=== PATIENT | female | born 1945 | race Caucasian/White ===

== ENCOUNTER → 2016-08-11 | Outpatient (CLI) | payer MEDICARE ==
[~2016-08-11] MED LIST: ACET-168 PO; ALBU0.632 IH; ALBU2.5V4 IH; ALBU8.5H2 IH; ALPR0.25 PO; ASP81CT PO; ASPI-892 PO; ATOR20TA66 PO; ATR20T PO; BUDE10.2 IH; CALC1CAP21 PO; CATHETER FLUSH 10 ML SYR IV PRN; CEPH-507 PO; CLOP75TA69 PO; DIGO125T PO; DIGO125T18 PO; DILT240C PO; DILT300C PO; DILT300C26 PO; EST45C VG; FURO-124 PO; FURO20TA PO; FURO20TA4 PO; HCT25T PO; HYDR-3812 PO; HYDR12.56 PO; IOHEXOL 350 MG/ML 150 ML (OMNIPAQUE 350) VIAL IV ONE; LEVO25TA5 PO; LEVO500T80 PO; LEVO750T39 PO; LISI10TA2 PO; LORA10CA PO; LORA10TA7 PO; LOSA100T16 PO; LOSA25TA5 PO; LVT.025T PO; MAGN400T6 PO; MELA1TAB8 PO; METO-272 PO; METO-274 PO; METO100T5 PO; METO50TA7 PO; MNTL10T PO; MONT10TA24 PO; MTP25TSR PO; NS 100 ML (IVPB) BAG IV ONE; OMEG1CAP51 PO; OXYM30SP NS; PANT40TA3 PO; PNT40TEC PO; POTA10CA43 PO; POTA10TA36 PO; RIVA20TA PO; RIVA20TA2 PO; RT-ALBUINH IH; SILD20TA PO; SMV20T PO; SULF1TAB35 PO; TIOT18CA2 IH; TIOT4MIS2 IH; calcium
--- OUTSIDE RECORDS SUMMARY | 2016-08-11 15:56 | XMS REPORT | Continuity of Care Document ---
Author Author [facility] Organization [facility] Address Unknown Phone Unavailable Care Team Providers Care Hospitality Aide Name Role Phone JONATHAN STANFORD MD PCP Insurance Providers Payer Name Policy Number Subscriber Name Relationship [employer] Gold Choice [id number] Anni Jacobson 19 Self / Same As Patient Advance Directives Directive Response Recorded Date/Time Advance Directives Yes 01/24/15 9:08am Health Care Power of Financial Services Internship No 01/24/15 9:08am Organ Donor No 01/24/15 9:08am Resuscitation Status Full Code 01/24/15 9:08am Problems Medical Problems Problem Onset Date Status Right ankle sprain Unknown Active Digoxin toxicity Unknown Active Dyspnea Unknown Active Hyponatremia Unknown Active Hyperkalemia Unknown Active Right ankle sprain Unknown Active Congestive heart failure Unknown Active Leukocytosis Unknown Active Right ankle sprain Unknown Active Medications Medication Dose Route Sig Days/Qty Instructions Order Date Discontinued Date Status Aspirin 81 Mg PO DAILY 06/29/12 11/13/14 Discontinued Losartan Potassium 1 Each PO DAILY 06/29/12 06/30/12 Discontinued Hydrochlorothiazide 1 Each PO DAILY 06/29/12 06/30/12 Discontinued Pantoprazole Sodium 40 Mg PO DAILY 06/29/12 Active Montelukast Sodium 10 Mg PO BEDTIME 06/29/12 Active Levothyroxine Sodium 25 Mcg PO DAILY 06/29/12 Active Simvastatin 20 Mg PO BEDTIME 06/29/12 09/12/12 Discontinued Albuterol Sulfate 0.63 Mg IH EVERY 4HRS PRN 06/29/12 08/23/14 Discontinued Losartan Potassium 25 Mg PO DAILY 06/30/12 09/12/12 Discontinued Metoprolol Succinate (Metoprolol ER 25mg) 25 Mg PO DAILY 06/30/12 Discontinued Diltiazem HCl (Cardizem Cd) 1 Each PO DAILY 06/30/12 08/23/14 Discontinued Rivaroxaban 20 Mg PO 1700 06/30/12 Active Atorvastatin Calcium 20 Mg PO BEDTIME 09/12/12 Active Metoprolol Succinate 1 Each PO TWICE A DAY 09/12/12 08/23/14 Discontinued Estrogens Conjugated 0.5 Gm VG WEEKLY ON Thursday09/12/12 Active [calcium] 600 Mg DAILY 09/12/12 08/23/14 Discontinued Hydrochlorothiazide 1 Each PO DAILY 09/12/12 08/23/14 Discontinued Oxymetazoline Hcl (Afrin Nasal [place]) 2 - 3 [place] NS PER PACKAGE INSTR 15 Qty 09/12/12 08/23/14 Discontinued Albuterol 2 Puff IH EVERY 4HRS PRN WHEEZING 08/23/14 Active Diltiazem HCl (Cartia Xt) 300 Mg PO DAILY 08/23/14 01/24/15 Discontinued Metoprolol Succinate (Toprol Xl) 100 Mg PO TWICE A DAY 08/23/14 Discontinued Calcium Carbonate/Vitamin D3 1 Tab PO DAILY 08/23/14 Active Furosemide 20 Mg PO EVERY OTHER DAY TAKE WITH POTASSIUM 08/23/1411/14 Discontinued Potassium Chloride 10 Meq PO EVERY OTHER DAY 08/23/14 Active [place]-3 Fatty Acids/Fish Oil 1,000 Mg PO DAILY 08/23/14 Active Loratadine 10 Mg PO 1700 08/23/14 11/13/14 Discontinued Acetaminophen 500-1000 Mg PO EVERY 4HRS PRN PAIN 08/23/14 Active Digoxin (Lanoxin) 125 Mcg PO DAILY 08/23/14 11/14/14 Discontinued Lisinopril 10 Mg PO DAILY 11/13/14 Active Alprazolam 0.25 Mg PO DAILY PRN ANXIETY 11/13/14 01/24/15 Discontinued Aspirin 81 Mg PO DAILY 11/13/14 Active Loratadine 10 Mg PO DAILY PRN ALLERGIES 11/13/14 Active Furosemide (Lasix) 1 Each PO DAILY 90 Qty 11/14/14 Active Metoprolol Succinate (Toprol Xl) 1 Each PO DAILY 90 Qty 11/14/14 Active Magnesium Oxide 1 Each PO TWICE A DAY WITH MEALS 60 Qty 11/14/14 Active Diltiazem HCl (Cartia Xt) 1 Each PO DAILY 01/24/15 Active Social History Social History Problem Response Recorded Date/Time Alcohol Use Regular Use 11/13/2014 12:54pm Recreational Drug Use No 11/13/2014 12:54pm Recent Foreign Travel No 01/24/2015 9:13am Smoking Status Never a Smoker 01/24/2015 9:12am Do you dip or chew tobacco? No 01/24/2015 9:12am Query Response Start Date Stop Date Smoking Status Never a Smoker 11/13/2004 Hospital Discharge Instructions No hospital discharge instructions. Plan of Care No plan of care. Functional Status No functional status results. Allergies, Adverse Reactions, Alerts Allergen Type Severity Reaction Status Last Updated valacyclovir HCl Allergy Unknown RASH Active 08/30/14 Immunizations Name Given Type Date of Pneumonia Vaccine 01/26/12 Historical Date of Influenza Vaccine 05/30/14 Historical Hepatitis A Yes Historical Hepatitis B Yes Historical Tetanus Booster (TDap) Less than 5yrs Historical Vital Signs Acute Vital Signs Vital Response Date/Time Temperature (Fahrenheit) 98.0 degrees F (97.6 - 99.5) Temperature (Calculated Celsius) 36.49774 degrees C (36.4 - 37.5) Temperature Source Tympanic Pulse Rate (adult) 85 bpm (60 - 90) Respiratory Rate 20 bpm (12 - 24) O2 Sat by Pulse Oximetry 95 % (88 - 100) Blood Pressure 106/57 mm Hg Pain Pain Intensity 0 Height (Feet) 5 feet Height (Inches) 5.00 inches Height (Calculated Centimeters) 165.344645 cm Weight (Pounds) 141 pounds Weight (Ounces) 3.0 oz Weight (Calculated Grams) 79915.525 gm Weight (Calculated Kilograms) 63.016117 kilograms Calculated BMI 23.46 Results Laboratory Results Test Name Result Units Flags Reference Collection Date/Time Result Date/ Time Comments Blood Urea Nitrogen 20 MG/DL H 7-18 12/28/2014 11:15am 12/28/2014 12: 05pm Creatinine 1.04 MG/DL 0.60-1.30 12/28/2014 11:15am 12/28/2014 12:05pm BUN/Creatinine Ratio 19 12/28/2014 11:15am 12/28/2014 12:05pm Estimat Glomerular Filtration Rate 53 12/28/2014 11:15am 2014 12:05pm GFR INTERPRETIVE DATA UNITS FOR ESTIMATED GFR (eGFR): mL/min/1.73 M2 REFERENCE RANGE FOR ESTIMATED GFR (eGFR) eGFR NORMAL eGFR >60 MODERATELY DECREASED eGFR 30-59 SEVERLY DECREASED eGFR 15-29 KIDNEY FAILURE <15 (OR DIALYSIS) Procedures Procedure Status Date Provider(s) Esophagogastroduodenoscopy (EGD) with dilation completed 01/24/15 JIM MEAD MD Encounters Encounter Location Date/Time Registered Surgical Day Care Via [facility] 01/24/15 8:34am Registered Clinic Via [facility] 01/18/15 6:09am Registered Clinic Via [facility] 01/08/15 9:34am Registered Clinic Via [facility] 12/28/14 10:22am
[2016-08-11 16:27] LABS: BLOOD UREA NITROGEN 16 MG/DL (7-18); BUN/CREATININE RATIO 18; CREATININE SERUM 0.87 MG/DL (0.60-1.30); GFR ESTIMATED > 60
--- NOTE | 2016-08-11 16:56 | Diagnostic Imaging Report ---
EXAMINATION: Bilateral lower extremity duplex venous ultrasound. TECHNIQUE: DVT protocol. Multiple sonographic images with color Doppler and waveform interrogation were performed of the lower extremity veins, bilaterally, with compression and augmentation maneuvers. INDICATION: Dyspnea. FINDINGS: The lower extremity veins from the common femoral veins to below the knee veins were examined with normal color-flow, compressibility and normal waveform demonstrated. The great saphenous vein bilaterally is patent. IMPRESSION: No evidence of DVT in either lower extremity. Dictated by: Dictated on workstation # [id number]
--- NOTE | 2016-08-11 17:09 | Diagnostic Imaging Report ---
PROCEDURE: CT angiography of the chest with contrast. TECHNIQUE: Multiple contiguous axial images were obtained through the chest after uneventful bolus administration of intravenous contrast. Reconstructed CTA MIP acquisitions were also performed. INDICATION: Dyspnea and COPD. Comparison is made to study of 06/28/2015. FINDINGS: There is good opacification of pulmonary arteries without intraluminal filling defect. There are small bilateral pleural effusions similar to previous study. Numerous enlarged mediastinal lymph nodes are also again demonstrated. This is increased compared to the previous study. IMPRESSION: No CTA evidence of pulmonary embolism. Mild to moderate pleural effusions are seen bilaterally with subjacent atelectasis and/or pneumonitis. Mediastinal adenopathy is not significantly changed. There does appear to be an increase in mural thickening within the midesophagus. This could be related to inflammation although clinical correlation and possible endoscopic followup are recommended. Pneumonitis in both lung bases with densely calcified nodule again noted in the left upper lobe, likely related to previous granulomatous exposure. Thoracic aorta demonstrates mild to moderate diffuse atherosclerosis without evidence of dissection. There is no evidence of hematoma in the mediastinum. There is localized mural thickening within the esophagus just below the level of the azygos. Dictated by: Dictated on workstation # [id number]
== END ==
LOC: RAD 15:52
PROVIDERS: ATTEND Nurse Practitioner Family
DX: R06.02 Shortness of breath (principal); J43.9 Emphysema, unspecified; R09.02 Hypoxemia; I27.2 Other secondary pulmonary hypertension
CPT/HCPCS: 36415; 71275; 82565; 84520; 93970

== ENCOUNTER → 2016-08-12 | Outpatient (CLI) | payer MEDICARE ==
[~2016-08-12] MED LIST changes: -CATHETER FLUSH 10 ML SYR IV PRN; -IOHEXOL 350 MG/ML 150 ML (OMNIPAQUE 350) VIAL IV ONE; -NS 100 ML (IVPB) BAG IV ONE
--- OUTSIDE RECORDS SUMMARY | 2016-08-12 11:32 | XMS REPORT | Continuity of Care Document ---
Author Author [facility] Organization [facility] Address Unknown Phone Unavailable Care Team Providers Care Chief Radiation Therapist Name Role Phone JONATHAN STANFORD MD PCP Insurance Providers Payer Name Policy Number Subscriber Name Relationship [employer] Choice [id number] Anni Jacobson 19 Self / Same As Patient Advance Directives Directive Response Recorded Date/Time Advance Directives Yes 01/24/15 9:08am Health Care Power of Jawbone Puller No 01/24/15 9:08am Organ Donor No 01/24/15 [...] 09/12/12 08/23/14 Discontinued Oxymetazoline Hcl (Afrin Nasal [place]) 2 - 3 [place] NS PER PACKAGE INSTR 15 Qty 09/12/12 [...] Meq PO EVERY OTHER DAY 08/23/14 Active [place]-3 Fatty Acids/Fish Oil 1,000 Mg PO DAILY [...] F (97.6 - 99.5) Temperature (Calculated Celsius) 36.36944 degrees C (36.4 - 37.5) Temperature Source Tympanic Pulse Rate (adult) 85 bpm (60 - 90) Respiratory Rate 20 bpm (12 - 24) O2 Sat by Pulse Oximetry 95 % (88 - 100) Blood Pressure 106/57 mm Hg Pain Pain Intensity 0 Height (Feet) 5 feet Height (Inches) 5.00 inches Height (Calculated Centimeters) 165.295094 cm Weight (Pounds) 141 pounds Weight (Ounces) 3.0 oz Weight (Calculated Grams) 57621.525 gm Weight (Calculated Kilograms) 63.564484 kilograms Calculated BMI 23.46 Results Laboratory Results [...] Location Date/Time Registered Surgical Day Care [facility] 01/24/15 8:34am Registered Clinic [facility] 01/18/15 6:09am Registered Clinic [facility] 01/08/15 9:34am Registered Clinic [facility] 12/28/14 10:22am
[2016-08-12 12:10] LABS: ANION GAP 14 MMOL/L (5-14); BLOOD UREA NITROGEN 14 MG/DL (7-18); BUN/CREATININE RATIO 16; CARBON DIOXIDE 26 MMOL/L (21-32); CHLORIDE 96 MMOL/L (98-107); CREATININE SERUM 0.87 MG/DL (0.60-1.30); SODIUM 136 MMOL/L (135-145)
[2016-08-12 12:11] LABS: ALANINE AMINOTRANSFERASE 15 U/L (0-55); ALBUMIN 4.3 G/DL (3.2-4.5); ASPARTATE AMINO TRANSFERASE 23 U/L (5-34); BILIRUBIN,TOTAL 0.7 MG/DL (0.1-1.0); CALCIUM 9.5 MG/DL (8.5-10.1); GFR ESTIMATED > 60; GLUCOSE 130 MG/DL (70-105); TOTAL PROTEIN 7.5 G/DL (6.4-8.2)
== END ==
LOC: LAB 11:28
PROVIDERS: ATTEND Nurse Practitioner Family
DX: J43.9 Emphysema, unspecified (principal)
CPT/HCPCS: 36415; 80053; 83880

== ENCOUNTER → 2016-09-05 | Outpatient (CLI) | payer MEDICARE ==
--- OUTSIDE RECORDS SUMMARY | 2016-09-05 09:35 | XMS REPORT | Continuity of Care Document ---
Author Author [facility] Organization [facility] Address Unknown Phone Unavailable Care Team Providers Care Sorority Mother Name Role Phone JONATHAN STANFORD MD PCP Insurance Providers Payer Name Policy Number Subscriber Name Relationship [employer] Gold Choice [id number] Anni Jacobson 19 Self / Same As Patient Advance Directives Directive Response Recorded Date/Time Advance Directives Yes 01/24/15 9:08am Health Care Power of Financial Services Intern No 01/24/15 9:08am Organ Donor No 01/24/15 [...] 09/12/12 08/23/14 Discontinued Oxymetazoline Hcl (Afrin Nasal [place]) 2 - 3 [place] NS PER PACKAGE INSTR 15 Qty 09/12/12 [...] Meq PO EVERY OTHER DAY 08/23/14 Active [place]-3 Fatty Acids/Fish Oil 1,000 Mg PO DAILY [...] F (97.6 - 99.5) Temperature (Calculated Celsius) 36.35753 degrees C (36.4 - 37.5) Temperature Source Tympanic Pulse Rate (adult) 85 bpm (60 - 90) Respiratory Rate 20 bpm (12 - 24) O2 Sat by Pulse Oximetry 95 % (88 - 100) Blood Pressure 106/57 mm Hg Pain Pain Intensity 0 Height (Feet) 5 feet Height (Inches) 5.00 inches Height (Calculated Centimeters) 165.312094 cm Weight (Pounds) 141 pounds Weight (Ounces) 3.0 oz Weight (Calculated Grams) 99829.525 gm Weight (Calculated Kilograms) 63.133349 kilograms Calculated BMI 23.46 Results Laboratory Results [...] Location Date/Time Registered Surgical Day Care [facility] 01/24/15 8:34am Registered Clinic [facility] 01/18/15 6:09am Registered Clinic [facility] 01/08/15 9:34am Registered Clinic [facility] 12/28/14 10:22am
[2016-09-05 09:47] LABS: MEAN PLATELET VOLUME 9.6 FL (7.4-10.4); RED BLOOD COUNT 3.58 10^6/uL (4.35-5.85); WHITE BLOOD COUNT 7.9 10^3/uL (4.3-11.0)
[2016-09-05 10:03] LABS: ALBUMIN 3.9 G/DL (3.2-4.5); BILIRUBIN,TOTAL 0.6 MG/DL (0.1-1.0); CALCIUM 8.9 MG/DL (8.5-10.1); CREATININE SERUM 0.99 MG/DL (0.60-1.30); POTASSIUM 3.9 MMOL/L (3.6-5.0); TOTAL PROTEIN 6.2 G/DL (6.4-8.2)
== END ==
LOC: LAB 09:30
PROVIDERS: ATTEND Nurse Practitioner Family
DX: J43.9 Emphysema, unspecified (principal); R06.02 Shortness of breath
CPT/HCPCS: 36415; 80053; 83880; 85027

== ENCOUNTER → 2016-10-07 | Outpatient (CLI) | payer MEDICARE ==
--- OUTSIDE RECORDS SUMMARY | 2016-10-07 09:42 | XMS REPORT | Continuity of Care Document ---
Author Author [facility] Organization [facility] Address Unknown Phone Unavailable Care Team Providers Care Claim Analyst Name Role Phone JONATHAN STANFORD MD PCP Insurance Providers Payer Name Policy Number Subscriber Name Relationship [employer] Gold Choice [id number] Anni Jacobson 19 Self / Same As Patient Advance Directives Directive Response Recorded Date/Time Advance Directives Yes 01/24/15 9:08am Health Care Power of Machine Cell Tuber No 01/24/15 9:08am Organ Donor No 01/24/15 [...] 09/12/12 08/23/14 Discontinued Oxymetazoline Hcl (Afrin Nasal [place]) 2 - 3 [place] NS PER PACKAGE INSTR 15 Qty [...] Meq PO EVERY OTHER DAY 08/23/14 Active [place]-3 Fatty Acids/Fish Oil 1,000 Mg PO DAILY [...] F (97.6 - 99.5) Temperature (Calculated Celsius) 36.75585 degrees C (36.4 - 37.5) Temperature Source Tympanic Pulse Rate (adult) 85 bpm (60 - 90) Respiratory Rate 20 bpm (12 - 24) O2 Sat by Pulse Oximetry 95 % (88 - 100) Blood Pressure 106/57 mm Hg Pain Pain Intensity 0 Height (Feet) 5 feet Height (Inches) 5.00 inches Height (Calculated Centimeters) 165.751764 cm Weight (Pounds) 141 pounds Weight (Ounces) 3.0 oz Weight (Calculated Grams) 12951.525 gm Weight (Calculated Kilograms) 63.079384 kilograms Calculated BMI 23.46 Results Laboratory Results [...] Location Date/Time Registered Surgical Day Care [facility] 01/24/15 8:34am Registered Clinic [facility] 01/18/15 6:09am Registered Clinic [facility] 01/08/15 9:34am Registered Clinic [facility] 12/28/14 10:22am
[2016-10-07 10:15] LABS: ALBUMIN 4.1 G/DL (3.2-4.5); BILIRUBIN,TOTAL 0.6 MG/DL (0.1-1.0); CALCIUM 9.4 MG/DL (8.5-10.1); CREATININE SERUM 1.19 MG/DL (0.60-1.30); POTASSIUM 3.7 MMOL/L (3.6-5.0); TOTAL PROTEIN 6.8 G/DL (6.4-8.2)
== END ==
LOC: LAB 09:38
PROVIDERS: ATTEND Internal Medicine Critical Care Medicine
DX: J43.9 Emphysema, unspecified (principal); R06.02 Shortness of breath
CPT/HCPCS: 36415; 80053; 83880

== ENCOUNTER → 2016-10-28 | Outpatient (CLI) | payer MEDICARE ==
[2016-10-28 13:55] LABS: MEAN PLATELET VOLUME 10.7 FL (7.4-10.4); RED CELL DISTRIBUTION WIDTH 22.1 % (10.0-14.5); WHITE BLOOD COUNT 9.1 10^3/uL (4.3-11.0)
[2016-10-28 14:39] LABS: ALBUMIN 4.1 G/DL (3.2-4.5); BILIRUBIN,TOTAL 0.4 MG/DL (0.1-1.0); CALCIUM 9.1 MG/DL (8.5-10.1); CREATININE SERUM 0.99 MG/DL (0.60-1.30); POTASSIUM 3.6 MMOL/L (3.6-5.0); TOTAL PROTEIN 6.9 G/DL (6.4-8.2)
== END ==
LOC: LAB 13:36
PROVIDERS: ATTEND Nurse Practitioner Family
DX: J43.9 Emphysema, unspecified (principal)
CPT/HCPCS: 36415; 80053; 83880; 85027

== ENCOUNTER → 2016-12-16 | Outpatient (CLI) | payer MEDICARE ==
[2016-12-16 11:37] LABS: ALBUMIN 4.1 G/DL (3.2-4.5); BILIRUBIN,TOTAL 0.7 MG/DL (0.1-1.0); CALCIUM 9.3 MG/DL (8.5-10.1); CREATININE SERUM 1.02 MG/DL (0.60-1.30); POTASSIUM 3.6 MMOL/L (3.6-5.0); TOTAL PROTEIN 6.8 G/DL (6.4-8.2)
== END ==
LOC: LAB 10:58
PROVIDERS: ATTEND Physician Assistant
DX: I10 Essential (primary) hypertension (principal); E78.2 Mixed hyperlipidemia
CPT/HCPCS: 36415; 80053; 80061

== ENCOUNTER 2016-12-23 09:44 | Outpatient (CLI) | payer MEDICARE ==
[~2016-12-23] VITALS: Ht 165.1 cm; Wt 61.2 kg
[2016-12-23] MEDS ORDERED: METO50TA2 PO (09:53)
[2016-12-23] MEDS ORDERED: MULT-72 PO (09:53)
[2016-12-23] MEDS ORDERED: POTA-51 PO (09:53)
== END 2016-12-23 09:57 ==
LOC: PREOP 09:44
PROVIDERS: ATTEND Otolaryngology Otolaryngology/Facial Plastic Surgery
DX: Z01.818 Encounter for other preprocedural examination (principal); R04.0 Epistaxis

== ENCOUNTER 2016-12-26 07:17 | Day surgery (SDC) | payer MEDICARE ==
[~2016-12-26] VITALS: Ht 165.1 cm; Wt 61.2 kg
[~2016-12-26 07:17] MED LIST changes: +METO50TA2 PO; +MULT-72 PO; +POTA-51 PO
[2016-12-26 07:35] VITALS: BP 114/69
[2016-12-26 07:52] LABS: BASOPHILS % (AUTO) 0 % (0-10); EOSINOPHILS # (AUTO) 0.2 10^3/uL (0.0-0.3); EOSINOPHILS % (AUTO) 2 % (0-10); LYMPHOCYTES % (AUTO) 10 % (12-44); MEAN CORPUSCULAR HEMOGLOBIN 30 PG (25-34); MEAN CORPUSCULAR HGB CONC 33 G/DL (32-36); MEAN CORPUSCULAR VOLUME 92 FL (80-99); MONOCYTES # (AUTO) 1.1 X 10^3 (0.0-1.0); MONOCYTES % (AUTO) 11 % (0-12); NEUTROPHILS # (AUTO) 7.8 X 10^3 (1.8-7.8); NEUTROPHILS % (AUTO) 77 % (42-75); PLATELET COUNT 241 10^3/uL (130-400); RED BLOOD COUNT 4.42 10^6/uL (4.35-5.85); RED CELL DISTRIBUTION WIDTH 20.1 % (10.0-14.5); WHITE BLOOD COUNT 10.2 10^3/uL (4.3-11.0)
[2016-12-26] MEDS ORDERED: LACTATED RINGERS 1,000 ML IV PRN (08:02)
--- NOTE | 2016-12-26 08:52 | Progress Note-Pre Operative ---
Pre-Operative Progress Note H&P Reviewed The H&P was reviewed, patient examined and no changes noted. Date H&P Reviewed: December 26, 2016 Time H&P Reviewed: 08:30 Pre-Operative Diagnosis: Recurrent Right Epistaxis TUNG SAVAGE MD December 26, 2016 8:52 am
[2016-12-26] MEDS ORDERED: ONDANSETRON 4 MG/2 ML (SDV) Z0FRAN ONE ×2 (08:53→09:41)
[2016-12-26] MEDS ORDERED: LIDOCAINE PF 2% 5 ML (XYLOCAINE) VIAL ONE (08:53)
[2016-12-26] MEDS ORDERED: proPOfol 200 MG/20 ML (DIPRIVAN) VIAL IV ONE (08:53)
[2016-12-26] MEDS ORDERED: SEVOFLURANE (ULTANE) 15 ML INHAL SOLN ONE (08:53)
[2016-12-26] MEDS ORDERED: LACTATED RINGERS 1,000 ML IV ONE (08:53)
[2016-12-26] MEDS ORDERED: fentaNYL INJECTION 100 MCG/2 ML AMP ONE ×2 (08:54→09:41)
[2016-12-26] MEDS ORDERED: MIDAZOLAM 2 MG/2 ML (VERSED) VIAL ONE (08:54)
[2016-12-26] MEDS ORDERED: MUPIROCIN 2% OINT 22 GM (BACTROBAN) TUBE ONE (09:03)
[2016-12-26] MEDS ORDERED: PHENYLEPHRINE 0.5% NASAL SPR (NEO-SYNEPHRINE) REG ONE (09:03)
[2016-12-26] MEDS ORDERED: COCAINE HCL 4% 2 ML SYR ONE (09:03)
[2016-12-26] MEDS ORDERED: LIDOCAINE/EPI 1%-1:100,000 (XYLOCAINE) 20ML ONE (09:03)
[2016-12-26] MEDS ORDERED: morphine INJ 10 MG/ML 1ML (SYR OR VIAL) ONE (09:41)
[2016-12-26] MEDS ORDERED: morphine INJ 10 MG/ML 1ML (SYR OR VIAL) IVP PRN (10:00)
[2016-12-26] MEDS ORDERED: MEPERIDINE (DEMEROL) INJ 50 MG/ML IVP PRN (10:00)
[2016-12-26] MEDS ORDERED: ONDANSETRON 4 MG/2 ML (SDV) Z0FRAN IVP PRN (10:00)
[2016-12-26] MEDS ORDERED: D5 1/2 NS W/KCL 20 MEQ/L 1,000 ML IV SCH (10:04)
--- NOTE | 2016-12-26 10:04 | Progress Note-Post Operative ---
Post-Operative Progess Note Surgeon (s)/Proofing Machine Operator (s) Surgeon TUNG SAVAGE MD Proofing Machine Operator n/a Pre-Operative Diagnosis Recurrent Right Epistaxis Post-Operative Diagnosis same Post-Op Procedure Note Date of Procedure: December 26, 2016 Name of Procedure Performed: Endoscopic Repair of Right Epistaxis Description & Findings Description and Findings: n/a Anesthesia Type lma Estimated Blood Loss minimal Packing none. Specimen(s) collected/removed none TUNG SAVAGE MD December 26, 2016 10:04 am
[2016-12-26] MEDS ORDERED: HYDROcodone/APAP 5 MG/325 MG (LORTAB) TAB PO PRN (10:15)
[2016-12-26] MEDS ORDERED: PHENYLEPHRINE 0.5% NASAL SPR (NEO-SYNEPHRINE) REG PRN (10:15)
[2016-12-26] MEDS ORDERED: ACETAMINOPHEN 325 MG TABLET/CAPLET (TYLENOL) PO PRN (10:30)
[2016-12-26] MEDS ORDERED: HYDR-3062 PO (10:45)
[2016-12-26 11:00] VITALS: BP 97/44
[2016-12-26 11:30] VITALS: BP 103/66
== END 2016-12-26 11:40 | disposition home or self-care (01) ==
LOC: SDC 07:17
PROVIDERS: ATTEND Otolaryngology Otolaryngology/Facial Plastic Surgery
DX: R04.0 Epistaxis (principal); I11.0 Hypertensive heart disease with heart failure; I50.9 Heart failure, unspecified; I48.91 Unspecified atrial fibrillation; D64.9 Anemia, unspecified; J44.9 Chronic obstructive pulmonary disease, unspecified; I27.2 Other secondary pulmonary hypertension; I73.00 Raynaud's syndrome without gangrene; Z79.01 Long term (current) use of anticoagulants
CPT/HCPCS: 36415; 85025; 87081

== ENCOUNTER → 2017-02-05 | Outpatient (CLI) | payer MEDICARE ==
[~2017-02-05] MED LIST changes: -ALBU2.5V4 IH; +ALBU2.5V4 NEB; +ASPI-999 PO; +HYDR-3062 PO
[2017-02-05 14:31] LABS: ALBUMIN 3.9 GM/DL (3.2-4.5); BILIRUBIN,TOTAL 0.5 MG/DL (0.1-1.0); CALCIUM 9.1 MG/DL (8.5-10.1); CREATININE SERUM 1.18 MG/DL (0.60-1.30); POTASSIUM 3.9 MMOL/L (3.6-5.0); TOTAL PROTEIN 6.6 GM/DL (6.4-8.2)
== END ==
LOC: LAB 13:53
PROVIDERS: ATTEND Nurse Practitioner Family
DX: I10 Essential (primary) hypertension (principal)
CPT/HCPCS: 36415; 80053

== ENCOUNTER 2017-04-22 11:10 | Outpatient (RCR) | payer MEDICARE ==
[2017-03-17 13:18] LABS: BASOPHILS % (AUTO) 0 % (0-10); EOSINOPHILS # (AUTO) 0.3 10^3/uL (0.0-0.3); EOSINOPHILS % (AUTO) 3 % (0-10); LYMPHOCYTES % (AUTO) 10 % (12-44); MEAN CORPUSCULAR HEMOGLOBIN 32 PG (25-34); MEAN CORPUSCULAR HGB CONC 32 G/DL (32-36); MEAN CORPUSCULAR VOLUME 98 FL (80-99); MEAN PLATELET VOLUME 10.7 FL (7.4-10.4); MONOCYTES # (AUTO) 1.2 X 10^3 (0.0-1.0); MONOCYTES % (AUTO) 12 % (0-12); NEUTROPHILS # (AUTO) 7.8 X 10^3 (1.8-7.8); NEUTROPHILS % (AUTO) 76 % (42-75); PLATELET COUNT 287 10^3/uL (130-400); RED BLOOD COUNT 3.79 10^6/uL (4.35-5.85); RED CELL DISTRIBUTION WIDTH 15.7 % (10.0-14.5); WHITE BLOOD COUNT 10.3 10^3/uL (4.3-11.0)
[2017-03-17 13:43] LABS: ALBUMIN 3.9 GM/DL (3.2-4.5); BILIRUBIN,TOTAL 0.7 MG/DL (0.1-1.0); CALCIUM 9.2 MG/DL (8.5-10.1); CREATININE SERUM 1.08 MG/DL (0.60-1.30); POTASSIUM 3.9 MMOL/L (3.6-5.0); TOTAL PROTEIN 6.9 GM/DL (6.4-8.2)
[2017-03-17 13:52] LABS: RETICULOCYTE % 1.74 % (0.50-2.40)
[2017-03-17 14:12] LABS: PEP REPORT SEE PATH REPORT
[2017-03-18 06:33] LABS: LIGHT CHAIN KAPPA SERUM QUANT 40.84 mg/L (3.30-19.40); LIGHT CHAIN LAMBDA SERUM QUANT 25.89 mg/L (5.71-26.30)
[2017-03-18 07:45] LABS: FOLIC ACID >24.0 ng/mL (1.5-24.0)
[2017-03-19 15:53] LABS: CLIN PATHOLOGY REPORT FOOTNOTE; SERUM PROTEIN ELEC DETAIL L-17-0010749
[~2017-04-22 11:10] MED LIST changes: +MULT-500 PO; -MULT-72 PO
[2017-04-22 11:51] LABS: BASOPHILS % (AUTO) 0 % (0-10); EOSINOPHILS # (AUTO) 0.3 10^3/uL (0.0-0.3); EOSINOPHILS % (AUTO) 3 % (0-10); LYMPHOCYTES # (AUTO) 0.8 X 10^3 (1.0-4.0); LYMPHOCYTES % (AUTO) 8 % (12-44); MEAN CORPUSCULAR HEMOGLOBIN 32 PG (25-34); MEAN CORPUSCULAR HGB CONC 33 G/DL (32-36); MEAN CORPUSCULAR VOLUME 95 FL (80-99); MEAN PLATELET VOLUME 10.5 FL (7.4-10.4); MONOCYTES # (AUTO) 1.4 X 10^3 (0.0-1.0); MONOCYTES % (AUTO) 13 % (0-12); NEUTROPHILS # (AUTO) 7.7 X 10^3 (1.8-7.8); NEUTROPHILS % (AUTO) 76 % (42-75); PLATELET COUNT 265 10^3/uL (130-400); RED BLOOD COUNT 3.65 10^6/uL (4.35-5.85); RED CELL DISTRIBUTION WIDTH 14.7 % (10.0-14.5); WHITE BLOOD COUNT 10.2 10^3/uL (4.3-11.0)
[2017-04-22 12:23] LABS: BILIRUBIN,TOTAL 0.8 MG/DL (0.1-1.0); CALCIUM 9.2 MG/DL (8.5-10.1); CREATININE SERUM 1.07 MG/DL (0.60-1.30); TOTAL PROTEIN 7.2 GM/DL (6.4-8.2)
== END 2017-05-02 | disposition home or self-care (01) ==
LOC: ONC 11:10
PROVIDERS: ATTEND Internal Medicine Hematology & Oncology
DX: D64.9 Anemia, unspecified (principal); I48.2 Chronic atrial fibrillation; J44.9 Chronic obstructive pulmonary disease, unspecified; I11.0 Hypertensive heart disease with heart failure; I50.30 Unspecified diastolic (congestive) heart failure; I25.10 Atherosclerotic heart disease of native coronary artery without angina pectoris; E78.5 Hyperlipidemia, unspecified; E03.9 Hypothyroidism, unspecified; I73.00 Raynaud's syndrome without gangrene; K21.9 Gastro-esophageal reflux disease without esophagitis; E78.00 Pure hypercholesterolemia, unspecified; I73.9 Peripheral vascular disease, unspecified; Z79.01 Long term (current) use of anticoagulants; Z79.02 Long term (current) use of antithrombotics/antiplatelets; Z95.828 Presence of other vascular implants and grafts; Z87.891 Personal history of nicotine dependence; Z99.81 Dependence on supplemental oxygen
CPT/HCPCS: 36415; 80053; 82607; 82728; 82746; 83540; 83883; 84155; 84165; 85025; 85045; 99213; 99214

== ENCOUNTER → 2017-05-05 | Outpatient (CLI) | payer MEDICARE ==
[2017-05-05 14:18] LABS: ALBUMIN 3.9 GM/DL (3.2-4.5); BILIRUBIN,TOTAL 0.5 MG/DL (0.1-1.0); CREATININE SERUM 0.92 MG/DL (0.60-1.30); POTASSIUM 3.5 MMOL/L (3.6-5.0); TOTAL PROTEIN 7.1 GM/DL (6.4-8.2)
== END ==
LOC: LAB 13:42
PROVIDERS: ATTEND Nurse Practitioner Family
DX: J43.9 Emphysema, unspecified (principal); I50.32 Chronic diastolic (congestive) heart failure; I27.20 Pulmonary hypertension, unspecified; R09.02 Hypoxemia
CPT/HCPCS: 36415; 80053

== ENCOUNTER → 2017-05-13 | Outpatient (CLI) | payer MEDICARE ==
[2017-05-13 11:19] LABS: CHOLESTEROL 132 MG/DL (< 200); DIRECT LDL 63 MG/DL (1-129); TRIGLYCERIDES 52 MG/DL (<150); VLDL CHOLESTEROL 10 MG/DL (5-40)
== END ==
LOC: LAB 10:39
PROVIDERS: ATTEND Family Medicine
DX: I10 Essential (primary) hypertension (principal); I48.0 Paroxysmal atrial fibrillation; E78.2 Mixed hyperlipidemia; I65.23 Occlusion and stenosis of bilateral carotid arteries; I50.32 Chronic diastolic (congestive) heart failure
CPT/HCPCS: 36415; 80061

== ENCOUNTER → 2017-05-26 | Outpatient (CLI) | payer MEDICARE | LOC: CARD 12:19 | PROVIDERS: ATTEND Internal Medicine Cardiovascular Disease | DX: I48.0 Paroxysmal atrial fibrillation (principal); I11.0 Hypertensive heart disease with heart failure; E78.2 Mixed hyperlipidemia; I65.23 Occlusion and stenosis of bilateral carotid arteries; I50.32 Chronic diastolic (congestive) heart failure | CPT/HCPCS: 93306 ==

== ENCOUNTER 2017-06-23 13:10 | Outpatient (RCR) | payer MEDICARE ==
[~2017-06-23 13:10] MED LIST changes: +ACHD5005 PO; -HYDR-3812 PO; -METO-272 PO; -METO-274 PO; +METO-370 PO; +METO-395 PO; +METO50TA15 PO; -METO50TA2 PO
[2017-06-23 13:44] LABS: BASOPHILS % (AUTO) 0 % (0-10); EOSINOPHILS # (AUTO) 0.2 10^3/uL (0.0-0.3); EOSINOPHILS % (AUTO) 2 % (0-10); HEMATOCRIT 35 % (35-52); HEMOGLOBIN 11.8 G/DL (11.5-16.0); LYMPHOCYTES # (AUTO) 0.9 X 10^3 (1.0-4.0); LYMPHOCYTES % (AUTO) 10 % (12-44); MEAN CORPUSCULAR HEMOGLOBIN 33 PG (25-34); MEAN CORPUSCULAR HGB CONC 34 G/DL (32-36); MEAN CORPUSCULAR VOLUME 97 FL (80-99); MEAN PLATELET VOLUME 11.2 FL (7.4-10.4); MONOCYTES % (AUTO) 10 % (0-12); NEUTROPHILS # (AUTO) 7.5 X 10^3 (1.8-7.8); NEUTROPHILS % (AUTO) 78 % (42-75); PLATELET COUNT 250 10^3/uL (130-400); WHITE BLOOD COUNT 9.6 10^3/uL (4.3-11.0)
[2017-06-23 14:00] LABS: ALBUMIN 3.9 GM/DL (3.2-4.5); BILIRUBIN,TOTAL 0.5 MG/DL (0.1-1.0); CALCIUM 9.2 MG/DL (8.5-10.1); CREATININE SERUM 0.96 MG/DL (0.60-1.30); POTASSIUM 3.8 MMOL/L (3.6-5.0); TOTAL PROTEIN 7.1 GM/DL (6.4-8.2)
== END 2017-09-21 | disposition home or self-care (01) ==
LOC: ONC 13:10
PROVIDERS: ATTEND Internal Medicine Hematology & Oncology
DX: D64.9 Anemia, unspecified (principal); I48.2 Chronic atrial fibrillation; J44.9 Chronic obstructive pulmonary disease, unspecified; I11.0 Hypertensive heart disease with heart failure; I50.30 Unspecified diastolic (congestive) heart failure; I25.10 Atherosclerotic heart disease of native coronary artery without angina pectoris; E78.5 Hyperlipidemia, unspecified; E03.9 Hypothyroidism, unspecified; I73.00 Raynaud's syndrome without gangrene; K21.9 Gastro-esophageal reflux disease without esophagitis; E78.00 Pure hypercholesterolemia, unspecified; I73.9 Peripheral vascular disease, unspecified; Z79.01 Long term (current) use of anticoagulants; Z79.02 Long term (current) use of antithrombotics/antiplatelets; Z95.828 Presence of other vascular implants and grafts; Z87.891 Personal history of nicotine dependence; Z99.81 Dependence on supplemental oxygen
CPT/HCPCS: 36415; 80053; 82728; 85025; 99213

== ENCOUNTER → 2017-08-06 | Outpatient (CLI) | payer MEDICARE ==
[2017-08-06 14:19] LABS: POTASSIUM 3.6 MMOL/L (3.6-5.0)
[2017-08-06 14:20] LABS: ALBUMIN 3.7 GM/DL (3.2-4.5); BILIRUBIN,TOTAL 0.8 MG/DL (0.1-1.0); CALCIUM 9.3 MG/DL (8.5-10.1); TOTAL PROTEIN 7.3 GM/DL (6.4-8.2)
== END ==
LOC: LAB 13:32
PROVIDERS: ATTEND Nurse Practitioner Family
DX: J43.9 Emphysema, unspecified (principal)
CPT/HCPCS: 36415; 80053

== ENCOUNTER → 2017-11-26 | Outpatient (CLI) | payer MEDICARE ==
[2017-11-26 13:56] LABS: ALBUMIN 4.1 GM/DL (3.2-4.5); BILIRUBIN,TOTAL 0.5 MG/DL (0.1-1.0); CALCIUM 9.7 MG/DL (8.5-10.1); CREATININE SERUM 0.98 MG/DL (0.60-1.30); POTASSIUM 3.9 MMOL/L (3.6-5.0); TOTAL PROTEIN 7.5 GM/DL (6.4-8.2)
== END ==
LOC: LAB 13:19
PROVIDERS: ATTEND Nurse Practitioner Family
DX: J43.9 Emphysema, unspecified (principal)
CPT/HCPCS: 36415; 80053

== ENCOUNTER 2017-12-15 13:48 | Outpatient (RCR) | payer MEDICARE ==
[2017-09-22 13:13] LABS: BASOPHILS % (AUTO) 0 % (0-10); EOSINOPHILS # (AUTO) 0.2 10^3/uL (0.0-0.3); EOSINOPHILS % (AUTO) 2 % (0-10); HEMATOCRIT 36 % (35-52); LYMPHOCYTES # (AUTO) 0.9 X 10^3 (1.0-4.0); LYMPHOCYTES % (AUTO) 8 % (12-44); MEAN CORPUSCULAR HEMOGLOBIN 33 PG (25-34); MEAN CORPUSCULAR HGB CONC 33 G/DL (32-36); MEAN CORPUSCULAR VOLUME 98 FL (80-99); MEAN PLATELET VOLUME 10.7 FL (7.4-10.4); MONOCYTES % (AUTO) 9 % (0-12); NEUTROPHILS # (AUTO) 8.8 X 10^3 (1.8-7.8); NEUTROPHILS % (AUTO) 81 % (42-75); PLATELET COUNT 285 10^3/uL (130-400); RED BLOOD COUNT 3.66 10^6/uL (4.35-5.85); RED CELL DISTRIBUTION WIDTH 15.6 % (10.0-14.5); WHITE BLOOD COUNT 10.8 10^3/uL (4.3-11.0)
[2017-09-22 13:34] LABS: BILIRUBIN,TOTAL 0.5 MG/DL (0.1-1.0); CALCIUM 9.4 MG/DL (8.5-10.1); CREATININE SERUM 1.12 MG/DL (0.60-1.30); POTASSIUM 4.1 MMOL/L (3.6-5.0); TOTAL PROTEIN 6.8 GM/DL (6.4-8.2)
[2017-12-15 13:59] LABS: BASOPHILS % (AUTO) 0 % (0-10); EOSINOPHILS # (AUTO) 0.2 10^3/uL (0.0-0.3); EOSINOPHILS % (AUTO) 2 % (0-10); HEMATOCRIT 39 % (35-52); LYMPHOCYTES # (AUTO) 0.9 X 10^3 (1.0-4.0); LYMPHOCYTES % (AUTO) 8 % (12-44); MEAN CORPUSCULAR HEMOGLOBIN 33 PG (25-34); MEAN CORPUSCULAR HGB CONC 34 G/DL (32-36); MEAN CORPUSCULAR VOLUME 97 FL (80-99); MEAN PLATELET VOLUME 10.8 FL (7.4-10.4); MONOCYTES # (AUTO) 1.2 X 10^3 (0.0-1.0); MONOCYTES % (AUTO) 11 % (0-12); NEUTROPHILS # (AUTO) 8.2 X 10^3 (1.8-7.8); NEUTROPHILS % (AUTO) 79 % (42-75); PLATELET COUNT 262 10^3/uL (130-400); RED BLOOD COUNT 3.96 10^6/uL (4.35-5.85); RED CELL DISTRIBUTION WIDTH 13.5 % (10.0-14.5); WHITE BLOOD COUNT 10.5 10^3/uL (4.3-11.0)
[2017-12-15 14:33] LABS: BILIRUBIN,TOTAL 0.4 MG/DL (0.1-1.0); CALCIUM 9.2 MG/DL (8.5-10.1); CREATININE SERUM 1.05 MG/DL (0.60-1.30); TOTAL PROTEIN 6.8 GM/DL (6.4-8.2)
== END 2017-12-21 | disposition home or self-care (01) ==
LOC: ONC 13:48
PROVIDERS: ATTEND Internal Medicine Hematology & Oncology
DX: D64.9 Anemia, unspecified (principal); I48.2 Chronic atrial fibrillation; J44.9 Chronic obstructive pulmonary disease, unspecified; I11.0 Hypertensive heart disease with heart failure; I50.30 Unspecified diastolic (congestive) heart failure; I25.10 Atherosclerotic heart disease of native coronary artery without angina pectoris; E78.5 Hyperlipidemia, unspecified; E03.9 Hypothyroidism, unspecified; I73.00 Raynaud's syndrome without gangrene; K21.9 Gastro-esophageal reflux disease without esophagitis; E78.00 Pure hypercholesterolemia, unspecified; I73.9 Peripheral vascular disease, unspecified; Z79.01 Long term (current) use of anticoagulants; Z79.02 Long term (current) use of antithrombotics/antiplatelets; Z95.828 Presence of other vascular implants and grafts; Z87.891 Personal history of nicotine dependence; Z99.81 Dependence on supplemental oxygen
CPT/HCPCS: 36415; 80053; 82728; 85025; 99213

== ENCOUNTER → 2018-01-05 | Outpatient (CLI) | payer MEDICARE ==
[2018-01-05 12:21] LABS: ALBUMIN 4.1 GM/DL (3.2-4.5); CALCIUM 9.7 MG/DL (8.5-10.1); CREATININE SERUM 1.25 MG/DL (0.60-1.30); POTASSIUM 4.3 MMOL/L (3.6-5.0); TOTAL PROTEIN 7.5 GM/DL (6.4-8.2)
[2018-01-05 12:42] LABS: BILIRUBIN,TOTAL 0.9 MG/DL (0.1-1.0)
== END ==
LOC: LAB 11:43
PROVIDERS: ATTEND Internal Medicine Cardiovascular Disease
DX: I48.0 Paroxysmal atrial fibrillation (principal); E78.5 Hyperlipidemia, unspecified; I10 Essential (primary) hypertension
CPT/HCPCS: 36415; 80053; 80061

== ENCOUNTER → 2018-06-01 | Outpatient (CLI) | payer MEDICARE ==
[2018-06-01 12:14] LABS: ALBUMIN 4.2 GM/DL (3.2-4.5); BILIRUBIN,TOTAL 0.6 MG/DL (0.1-1.0); CALCIUM 9.5 MG/DL (8.5-10.1); CREATININE SERUM 1.13 MG/DL (0.60-1.30); TOTAL PROTEIN 7.2 GM/DL (6.4-8.2)
== END ==
LOC: LAB 11:43
PROVIDERS: ATTEND Internal Medicine Cardiovascular Disease
DX: I10 Essential (primary) hypertension (principal); E78.5 Hyperlipidemia, unspecified
CPT/HCPCS: 36415; 80053; 80061

== ENCOUNTER → 2018-06-17 | Outpatient (CLI) | payer MEDICARE | LOC: CARD 13:36 | PROVIDERS: ATTEND Physician Assistant | DX: I65.29 Occlusion and stenosis of unspecified carotid artery (principal); I11.0 Hypertensive heart disease with heart failure; I50.32 Chronic diastolic (congestive) heart failure; E78.5 Hyperlipidemia, unspecified; I08.1 Rheumatic disorders of both mitral and tricuspid valves | CPT/HCPCS: 93306 ==

== ENCOUNTER 2018-07-01 12:56 | Outpatient (RCR) | payer MEDICARE ==
[2018-06-22 13:54] LABS: BASOPHILS % (AUTO) 0 % (0-10); EOSINOPHILS # (AUTO) 0.2 10^3/uL (0.0-0.3); EOSINOPHILS % (AUTO) 2 % (0-10); HEMATOCRIT 42 % (35-52); HEMOGLOBIN 13.9 G/DL (11.5-16.0); LYMPHOCYTES % (AUTO) 9 % (12-44); MEAN CORPUSCULAR HEMOGLOBIN 33 PG (25-34); MEAN CORPUSCULAR HGB CONC 33 G/DL (32-36); MEAN CORPUSCULAR VOLUME 98 FL (80-99); MEAN PLATELET VOLUME 10.9 FL (7.4-10.4); MONOCYTES % (AUTO) 10 % (0-12); NEUTROPHILS # (AUTO) 8.2 X 10^3 (1.8-7.8); NEUTROPHILS % (AUTO) 79 % (42-75); PLATELET COUNT 277 10^3/uL (130-400); RED CELL DISTRIBUTION WIDTH 13.7 % (10.0-14.5); WHITE BLOOD COUNT 10.5 10^3/uL (4.3-11.0)
[2018-06-22 14:14] LABS: BILIRUBIN,TOTAL 0.6 MG/DL (0.1-1.0); CALCIUM 9.8 MG/DL (8.5-10.1); CREATININE SERUM 1.21 MG/DL (0.60-1.30); POTASSIUM 4.1 MMOL/L (3.6-5.0); TOTAL PROTEIN 7.1 GM/DL (6.4-8.2)
== END 2018-09-20 | disposition home or self-care (01) ==
LOC: ONC 12:56
PROVIDERS: ATTEND Internal Medicine Hematology & Oncology
DX: D64.9 Anemia, unspecified (principal); I48.2 Chronic atrial fibrillation; J44.9 Chronic obstructive pulmonary disease, unspecified; I11.0 Hypertensive heart disease with heart failure; I50.30 Unspecified diastolic (congestive) heart failure; I25.10 Atherosclerotic heart disease of native coronary artery without angina pectoris; E78.5 Hyperlipidemia, unspecified; E03.9 Hypothyroidism, unspecified; I73.00 Raynaud's syndrome without gangrene; K21.9 Gastro-esophageal reflux disease without esophagitis; E78.00 Pure hypercholesterolemia, unspecified; I73.9 Peripheral vascular disease, unspecified; Z79.01 Long term (current) use of anticoagulants; Z79.02 Long term (current) use of antithrombotics/antiplatelets; Z95.828 Presence of other vascular implants and grafts; Z87.891 Personal history of nicotine dependence; Z99.81 Dependence on supplemental oxygen
CPT/HCPCS: 36415; 80053; 82728; 85025; 99213

== ENCOUNTER 2018-12-24 07:13 | Inpatient (IN) | payer MEDICARE ==
[2018-12-24] VITALS (16 sets, daily range): BP systolic 87–139; BP diastolic 52–88
[~2018-12-24 07:13] MED LIST changes: -RIVA20TA PO
[2018-12-24] MEDS: NS IV 1000 ML 1,000 ML IV SCH ×5 (07:30→21:53)
[2018-12-24] MEDS ORDERED: RT-ALBUTEROL/IPRATROPIUM 3 ML (DUONEB) VIAL INH ONE (07:30)
[2018-12-24 07:34] LABS: BASOPHILS % (AUTO) 0 % (0-10); EOSINOPHILS # (AUTO) 0.1 10^3/uL (0.0-0.3); EOSINOPHILS % (AUTO) 0 % (0-10); HEMATOCRIT 40 % (35-52); HEMOGLOBIN 13.8 G/DL (11.5-16.0); LYMPHOCYTES # (AUTO) 0.7 X 10^3 (1.0-4.0); LYMPHOCYTES % (AUTO) 4 % (12-44); MEAN CORPUSCULAR HEMOGLOBIN 33 PG (25-34); MEAN CORPUSCULAR HGB CONC 35 G/DL (32-36); MEAN CORPUSCULAR VOLUME 95 FL (80-99); MEAN PLATELET VOLUME 11.3 FL (7.4-10.4); MONOCYTES # (AUTO) 1.3 X 10^3 (0.0-1.0); MONOCYTES % (AUTO) 7 % (0-12); NEUTROPHILS # (AUTO) 15.7 X 10^3 (1.8-7.8); NEUTROPHILS % (AUTO) 88 % (42-75); PLATELET COUNT 211 10^3/uL (130-400); RED CELL DISTRIBUTION WIDTH 14.4 % (10.0-14.5); WHITE BLOOD COUNT 17.7 10^3/uL (4.3-11.0)
[2018-12-24 07:54] LABS: INR 4.2 (0.8-1.4); PROTHROMBIN TIME PATIENT 42.6 SEC (12.2-14.7)
[2018-12-24 07:55] LABS: ALANINE AMINOTRANSFERASE 14 U/L (0-55); ALBUMIN 3.9 GM/DL (3.2-4.5); ALKALINE PHOSPHATASE 83 U/L (40-136); BILIRUBIN,TOTAL 0.9 MG/DL (0.1-1.0); BUN/CREATININE RATIO 19; CARBON DIOXIDE 26 MMOL/L (21-32); CHLORIDE 103 MMOL/L (98-107); CREATININE SERUM 1.02 MG/DL (0.60-1.30); GFR ESTIMATED 53; GLUCOSE 104 MG/DL (70-105); SODIUM 139 MMOL/L (135-145); TOTAL PROTEIN 6.8 GM/DL (6.4-8.2)
[2018-12-24 08:03] LABS: BILIRUBIN,URINE NEGATIVE (NEGATIVE); CLARITY,URINE CLEAR; COLOR,URINE YELLOW; GLUCOSE, URINE (UA) NEGATIVE (NEGATIVE); KETONES,URINE NEGATIVE (NEGATIVE); LEUKOCYTE ESTERASE ,URINE 1+ (NEGATIVE); NITRITE,URINE NEGATIVE (NEGATIVE); PH,URINE 7 (5-9); PROTEIN,URINE NEGATIVE (NEGATIVE); UROBILINOGEN,URINE NORMAL (NORMAL)
[2018-12-24 08:06] LABS: ABG OXYGEN SATURATION 90 % (94-100); ABG PCO2 31 MMHG (35-45); ABG PH 7.45 (7.37-7.43); ABG PO2 58 MMHG (79-93); ABG TCO2 22.3 MMOL/L (21.0-31.0)
[2018-12-24 08:07] LABS: ALLENS TEST YES-POS; INSPIRED O2 5L; PATIENT TEMP 98.9; VENTILATOR NO
[2018-12-24 08:25] LABS: BACTERIA,URINE LARGE /HPF
--- NOTE | 2018-12-24 08:25 | NUR ---
CENTRAL LINE BY DR MANZANARES
[2018-12-24 08:48] LABS: BAND NEUTROPHILS 6 %; LYMPHOCYTES % (MANUAL) 4 %; MONOCYTES % (MANUAL) 7 %; NEUTROPHILS % (MANUAL) 83 %; RBC MORPH NORMAL
[2018-12-24] MEDS: NOREPINEPHRINE 4 MG in NS (IVPB) 250 ML IV SCH ×4 (09:09→23:01)
[2018-12-24] MEDS ORDERED: NS IV 1000 ML 1,000 ML IV ONE (09:11)
[2018-12-24] MEDS ORDERED: NOREPINEPHRINE 4 MG in NS (IVPB) 250 ML IV SCH (09:15)
[2018-12-24] MEDS ORDERED: PIPERACILLIN/TAZOBACTAM (BULK) 4.5 GM in NS (IVPB) 100 ML IV ONE (09:15)
--- NOTE | 2018-12-24 09:18 | Diagnostic Imaging Report ---
INDICATION: Chest pain and shortness of breath. TIME OF EXAM: 8:51 AM Correlation is made with prior study from 01/14/2017. FINDINGS: Heart is enlarged. There are interstitial changes in both lungs, likely owing to interstitial edema. There is a small left effusion. No pneumothorax is identified. IMPRESSION: Cardiomegaly, interstitial changes and small left effusion, suggestive of CHF. Dictated by: Dictated on workstation # [id number]
--- OUTSIDE RECORDS SUMMARY | 2018-12-24 10:30 | XMS REPORT | Continuity of Care Document ---
Author Organization Unknown Address Unknown Allergies Active Description Code Type Severity Reaction Onset Reported/Identified Relationship to Patient Clinical Status Yes VALTREX UNKNOWN UNKNOWN Yes valacyclovir HCl [id number] Drug Allergy Unknown RASH 08/30/2014 Medications There is no data. Problems Date Dx Coded Attending Type Code Diagnosis Diagnosed By 2012 Ot 244.9 HYPOTHYROIDISM NOS 2012 Ot 272.4 HYPERLIPIDEMIA NEC/NOS 2012 Ot 401.9 HYPERTENSION NOS 2012 Ot 427.31 ATRIAL FIBRILLATION 2012 Ot 786.09 RESPIRATORY ABNORM NEC 09/12/2012 Ot 784.7 EPISTAXIS 08/22/2014 Ot 427.31 08/30/2014 JIM MEAD MD Ot 244.9 HYPOTHYROIDISM NOS 08/30/2014 JIM MEAD MD Ot 272.0 PURE HYPERCHOLESTEROLEM 08/30/2014 JIM MAED MD Ot 401.9 HYPERTENSION NOS 08/30/2014 JIM MEAD MD Ot 427.31 ATRIAL FIBRILLATION 08/30/2014 JIM MEAD MD Ot 455.0 INT HEMORRHOID W/O COMPL 08/30/2014 JIM MEAD MD Ot 455.3 EXT HEMORRHOID W/O COMPL 08/30/2014 JIM MEAD MD Ot 562.10 DIVERTICULOSIS COLON (W/O MENT OF HEMORR 08/30/2014 JIM MEAD MD Ot V76.51 SCREEN MAL NEOP-COLON 09/06/2014 LOUISE SPARROW MD Ot 272.4 09/06/2014 LOUISE SPARROW MD Ot 397.0 09/06/2014 LOUISE SPARROW MD Ot 401.9 09/06/2014 LOUISE SPARROW MD Ot 416.8 09/06/2014 LOUISE SPARROW MD Ot 424.0 09/06/2014 LOUISE SPARROW MD Ot 427.31 09/06/2014 LOUISE SPARROW MD Ot 429.9 09/06/2014 LOUISE SPARROW MD Ot 433.10 09/12/2014 LOUISE SPARROW MD Ot 272.4 09/12/2014 LOUISE SPARROW MD Ot 397.0 09/12/2014 LOUISE SPARROW MD Ot 401.9 09/12/2014 LOUISE SPARROW MD Ot 416.8 09/12/2014 LOUISE SPARROW MD Ot 424.0 09/12/2014 LOUISE SPARROW MD Ot 427.31 09/12/2014 LOUISE SPARROW MD Ot 429.9 09/12/2014 LOUISE SPARROW MD Ot 433.10 11/14/2014 LOUISE SPARROW MD Ot 272.0 PURE HYPERCHOLESTEROLEM 11/14/2014 LOUISE SPARROW MD Ot 272.4 HYPERLIPIDEMIA NEC/NOS 11/14/2014 LOUISE SPARROW MD Ot 276.1 HYPOSMOLALITY 11/14/2014 LOUISE SPARROW MD Ot 276.7 HYPERPOTASSEMIA 11/14/2014 LOUISE SPARROW MD Ot 401.9 HYPERTENSION NOS 11/14/2014 LOUISE SPARROW MD Ot 416.8 CHR PULMON HEART DIS NEC 11/14/2014 LOUISE SPARROW MD Ot 427.31 ATRIAL FIBRILLATION 11/14/2014 LOUISE SPARROW MD Ot 428.0 CONGESTIVE HEART FAILURE NOS 11/14/2014 LOUISE SPARROW MD Ot 428.33 ACUTE CHRONIC DIASTOLIC HRT FAILURE 11/14/2014 LOUISE SPARROW MD Ot 443.0 RAYNAUD'S SYNDROME 11/14/2014 LOUISE SPARROW MD Ot 493.20 CHRONIC OBSTRUCTIVE ASTHMA, NOS 11/14/2014 LOUISE SPARROW MD Ot 845.00 SPRAIN OF ANKLE NOS 11/14/2014 LOUISE SPARROW MD Ot E000.8 OTHER EXTERNAL CAUSE STATUS 11/14/2014 LOUISE SPARROW MD Ot E001.0 ACTIVITIES INVOLVING WALKING, MARCHING A 11/14/2014 LOUISE SPARROW MD Ot E927.0 OVEREXERTION FROM SUDDEN STRENUOUS MOVEM 11/14/2014 LOUISE SPARROW MD Ot E942.1 ADV EFF CARDIOTONICS 11/14/2014 LOUISE SPARROW MD Ot V12.29 PERSONAL HX OF [facility] ENDOCRINE, METABOLIC 11/14/2014 LOUISE SPARROW MD Ot V15.82 HISTORY OF TOBACCO USE 11/14/2014 LOUISE SPARROW MD Ot V58.61 ANTICOAGULANTS,LT,CURRENT USE 11/14/2014 LOUISE SPARROW MD Ot 272.0 11/14/2014 LOUISE SPARROW MD Ot 272.4 11/14/2014 LOUISE SPARROW MD Ot 276.1 11/14/2014 LOUISE SPARROW MD Ot 276.7 11/14/2014 LOUISE SPARROW MD Ot 401.9 11/14/2014 LOUISE SPARROW MD Ot 416.8 11/14/2014 LOUISE SPARROW MD Ot 427.31 11/14/2014 LOUISE SPARROW MD Ot 428.0 11/14/2014 LOUISE SPARROW MD Ot 428.33 11/14/2014 LOUISE SPARROW MD Ot 443.0 11/14/2014 LOUISE SPARROW MD Ot 493.20 11/14/2014 LOUISE SPARROW MD Ot 845.00 11/14/2014 LOUISE SPARROW MD Ot E001.0 11/14/2014 LOUISE SPARROW MD Ot E927.0 11/14/2014 LOUISE SPARROW MD Ot E942.1 11/14/2014 LOUISE SPARROW MD Ot V12.29 11/14/2014 LOUISE SPARROW MD Ot V15.82 11/14/2014 LOUISE SPARROW MD Ot V58.61 12/27/2014 Ot 427.31 12/27/2014 JIM MEAD MD Ot V72.84 12/27/2014 LOUISE SPARROW MD Ot 272.4 12/27/2014 LOUISE SPARROW MD Ot 397.0 12/27/2014 LOUISE SPARROW MD Ot 401.9 12/27/2014 LOUISE SPARROW MD Ot 416.8 12/27/2014 LOUISE SPARROW MD Ot 424.0 12/27/2014 LOUISE SPARROW MD Ot 427.31 12/27/2014 LOUISE SPARROW MD Ot 429.9 12/27/2014 LOUISE SPARROW MD Ot 433.10 12/27/2014 JOSÉ NEWMAN AMBROSIO M Ot 786.09 12/29/2014 AMBROSIO KUMAR DO Ot 496 01/15/2015 AMBROSIO KUMAR DO Ot 496 01/19/2015 JOSÉ NEWMAN AMBROSIO M Ot 786.09 01/22/2015 ABDOULAYE SZYMANSKI, ANJU Melara Ot 789.01 01/22/2015 ANJU STANFORD MD Ot 789.06 01/23/2015 JIM MEAD MD Ot V72.84 01/24/2015 JIM MEAD MD Ot 244.9 HYPOTHYROIDISM NOS 01/24/2015 JIM MEAD MD Ot 272.0 PURE HYPERCHOLESTEROLEM 01/24/2015 JIM MEAD MD Ot 401.9 HYPERTENSION NOS 01/24/2015 JIM MEAD MD Ot 427.31 ATRIAL FIBRILLATION 01/24/2015 JIM MEAD MD Ot 443.9 PERIPH VASCULAR DIS NOS 01/24/2015 JIM MEAD MD Ot 530.11 REFLUX ESOPHAGITIS 01/24/2015 JIM MEAD MD Ot 535.50 UNSP GASTRITIS GASTRODUODENITIS W/O ME 01/24/2015 JIM MEAD MD Ot 553.3 DIAPHRAGMATIC HERNIA 04/26/2015 ANAT REBOLLAR DO Ot 244.9 HYPOTHYROIDISM NOS 04/26/2015 ANAT REBOLLAR DO Ot 272.4 HYPERLIPIDEMIA NEC/NOS 04/26/2015 [place] REBOLLAR DOI Ot 276.7 HYPERPOTASSEMIA 04/26/2015 ANAT REBOLLAR DO Ot 401.9 HYPERTENSION NOS 04/26/2015 ANAT REBOLLAR DO Ot 416.8 CHR PULMON HEART DIS NEC 04/26/2015 ANAT REBOLLAR DO Ot 427.31 ATRIAL FIBRILLATION 04/26/2015 ANAT REBOLLAR DO Ot 428.0 CONGESTIVE HEART FAILURE NOS 04/26/2015 ANAT REBOLLAR DO Ot 428.33 ACUTE CHRONIC DIASTOLIC HRT FAILURE 04/26/2015 ANAT REBOLLAR DO Ot 433.10 CAROTID ARTERY OCCLUSION W O CEREBRAL IN 04/26/2015 ANAT REBOLLAR DO Ot 433.30 MULT BILTRAL ARTERY OCCLUSION WO CEREBRA 04/26/2015 ANAT REBOLLAR DO Ot 443.0 RAYNAUD'S SYNDROME 04/26/2015 REBOLLAR , ANAT Ot 493.90 ASTHMA, UNSPECIFIED 04/26/2015 SMOOTH NEWMAN, ANAT Ot 518.82 OTHER PULMONARY INSUFFICIENCY, NEC 04/26/2015 SMOOTH NEWMAN, ANAT Ot 845.00 SPRAIN OF ANKLE NOS 04/26/2015 SMOOTH NEWMAN, ANAT Ot E000.8 OTHER EXTERNAL CAUSE STATUS 04/26/2015 SMOOTH NEWMAN, ANAT Ot E928.9 ACCIDENT NOS 04/26/2015 SMOOTH NEWMAN, ANAT Ot V15.81 HX OF PAST NONCOMPLIANCE 05/01/2015 NIKOS SZYMANSKI, ANGELA Clark Ot 038.9 05/01/2015 NIKOS SZYMANSKI, ANGELA F Ot 244.9 05/01/2015 NIKOS SZYMANSKI, ANGELA F Ot 272.4 05/01/2015 NIKOS SZYMANSKI, ANGELA F Ot 401.9 05/01/2015 NIKOS SZYMANSKI, ANGELA F Ot 416.8 05/01/2015 NIKOS SZYMANSKI, ANGELA F Ot 424.0 05/01/2015 NIKOS SZYMANSKI, ANGELA F Ot 427.31 05/01/2015 NIKOS SZYMANSKI, ANGELA F Ot 428.0 05/01/2015 NIKOS SZYMANSKI, ANGELA F Ot 428.33 05/01/2015 NIKOS SZYMANSKI, ANGELA F Ot 433.10 05/01/2015 NIKOS SZYMANSKI, ANGELA F Ot 433.30 05/01/2015 NIKOS SZYMANSKI, ANGELA F Ot 486 05/01/2015 NIKOS SZYMANSKI, ANGELA F Ot 493.22 05/01/2015 NIKOS SZYMANSKI, ANGELA F Ot 799.02 05/01/2015 NIKOS SZYMANSKI, ANGELA F Ot 995.91 05/01/2015 NIKOS SZYMANSKI, ANGELA F Ot V15.82 05/01/2015 NIKOS SZYMANSKI, ANGELA F Ot V46.2 05/02/2015 NIKOS SZYMANSKI, ANGELA F Ot 038.9 05/02/2015 NIKOS SZYMANSKI, ANGELA F Ot 244.9 05/02/2015 NIKOS SZYMANSKI, ANGELA F Ot 272.4 05/02/2015 NIKOS SZYMANSKI, ANGELA F Ot 401.9 05/02/2015 NIKOS SZYMANSKI, ANGELA F Ot 416.8 05/02/2015 NIKOS SZYMANSKI, ANGELA F Ot 424.0 05/02/2015 NIKOS SZYMANSKI, ANGELA F Ot 427.31 05/02/2015 NIKOS SZYMANSKI, ANGELA F Ot 428.0 05/02/2015 NIKOS SZYMANSKI, ANGELA F Ot 428.33 05/02/2015 NIKOS SZYMANSKI, ANGELA F Ot 433.10 05/02/2015 NIKOS SZYMANSKI, ANGELA F Ot 433.30 05/02/2015 NIKOS SZYMANSKI, ANGELA F Ot 486 05/02/2015 NIKOS SZYMANSKI, ANGELA F Ot 493.22 05/02/2015 NIKOS SZYMANSKI, ANGELA F Ot 799.02 05/02/2015 NIKOS SZYMANSKI, ANGELA F Ot 995.91 05/02/2015 NIKOS SZYMANSKI, ANGELA F Ot V15.82 05/02/2015 NIKOS SZYMANSKI, ANGELA F Ot V46.2 05/03/2015 NIKOS SZYMANSKI, ANGELA F Ot 038.9 05/03/2015 NIKOS SZYMANSKI, ANGELA F Ot 244.9 05/03/2015 NIKOS SZYMANSKI, ANGELA F Ot 272.4 05/03/2015 NIKOS SZYMANSKI, ANGELA F Ot 401.9 05/03/2015 NIKOS SZYMANSKI, ANGELA F Ot 416.8 05/03/2015 NIKOS SZYMANSKI, ANGELA F Ot 424.0 05/03/2015 NIKOS SZYMANSKI, ANGELA F Ot 427.31 05/03/2015 NIKOS SZYMANSKI, ANGELA F Ot 428.0 05/03/2015 NIKOS SZYMANSKI, ANGELA F Ot 428.33 05/03/2015 NIKOS SZYMANSKI, ANGELA F Ot 433.10 05/03/2015 NIKOS SZYMANSKI, ANGELA F Ot 433.30 05/03/2015 NIKOS SZYMANSKI, ANGELA F Ot 486 05/03/2015 NIKOS SZYMANSKI, ANGELA F Ot 493.22 05/03/2015 NIKOS SZYMANSKI, ANGELA F Ot 799.02 05/03/2015 NIKOS SZYMANSKI, ANGELA F Ot 995.91 05/03/2015 NIKOS SZYMANSKI, ANGELA F Ot V15.82 05/03/2015 NIKOS SZYMANSKI, ANGELA F Ot V46.2 05/03/2015 NIKOS SZYMANSKI, ANGELA F Ot A41.9 SEPSIS, UNSPECIFIED ORGANISM 05/03/2015 NIKOS SZYMANSKI, ANGELA F Ot E03.9 HYPOTHYROIDISM, UNSPECIFIED 05/03/2015 NIKOS SZYMANSKI, ANGELA F Ot E78.0 PURE HYPERCHOLESTEROLEMIA 05/03/2015 ANGELA KNOTT MD, Ot E78.5 HYPERLIPIDEMIA, UNSPECIFIED 05/03/2015 ANGELA KNOTT MD, Ot G47.00 INSOMNIA, UNSPECIFIED 05/03/2015 ANGELA KNOTT MD Ot I10 ESSENTIAL (PRIMARY) HYPERTENSION 05/03/2015 ANGELA KNOTT MD Ot I27.2 OTHER SECONDARY PULMONARY HYPERTENSION 05/03/2015 ANGELA KNOTT MD, Ot I27.81 COR PULMONALE (CHRONIC) 05/03/2015 ANGELA KNOTT MD Ot I34.0 NONRHEUMATIC MITRAL (VALVE) INSUFFICIENC 05/03/2015 ANGELA KNOTT MD, Ot I48.91 UNSPECIFIED ATRIAL FIBRILLATION 05/03/2015 ANGELA KNOTT MD, Ot I50.33 ACUTE ON CHRONIC DIASTOLIC (CONGESTIVE) 05/03/2015 ANGELA KNOTT MD Ot I65.23 OCCLUSION AND STENOSIS OF BILATERAL [place] 05/03/2015 ANGELA KNOTT MD Ot 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 05/03/2015 ANGELA KNOTT MD, Ot J18.9 PNEUMONIA, UNSPECIFIED ORGANISM 05/03/2015 ANGELA KNOTT MD Ot J44.1 CHRONIC OBSTRUCTIVE PULMONARY DISEASE W 05/03/2015 ANGELA KNOTT MD Ot K21.9 GASTRO-ESOPHAGEAL REFLUX DISEASE WITHOUT 05/03/2015 ANGELA KNOTT MD Ot N17.9 ACUTE KIDNEY FAILURE, UNSPECIFIED 05/03/2015 ANGELA KNOTT MD Ot R09.02 HYPOXEMIA 05/03/2015 ANGELA KNOTT MD Ot Z79.01 DETENTION (CURRENT) USE OF ANTICOAGULANT 05/03/2015 ANGELA KNOTT MD Ot Z87.891 PERSONAL HISTORY OF NICOTINE DEPENDENCE 05/03/2015 ANGELA KNOTT MD Ot Z99.81 DEPENDENCE ON SUPPLEMENTAL OXYGEN 05/28/2015 Ot 427.31 05/28/2015 JIM MEAD MD Ot V72.84 05/28/2015 LOUISE SPARROW MD Ot 272.4 05/28/2015 LOUISE SPARROW MD Ot 397.0 05/28/2015 LOUISE SPARROW MD Ot 401.9 05/28/2015 LOUISE SPARROW MD Ot 416.8 05/28/2015 ANDREWS SZYMANSKI, LOUISE Snyder Ot 424.0 05/28/2015 ANDREWS SZYMANSKI, LOUISE Snyder Ot 427.31 05/28/2015 ANDREWS SZYMANSKI, LOUISE Snyder Ot 429.9 05/28/2015 ANDREWS SZYMANSKI, LOUISE Snyder Ot 433.10 05/28/2015 AMBROSIO KUMAR DO Ot 786.09 05/28/2015 JOSÉ DO, AMBROSIO M Ot 496 05/28/2015 ABDOULAYE SZYMANSKI, ANJU Melara Ot 789.01 05/28/2015 ABDOULAYE SZYMANSKI, ANJU Melara Ot 789.06 05/28/2015 BOSTON SZYMANSKI, JIM Ot V72.84 2015 OSCAR DO, ELANA K Ot D50.9 2015 OSCAR DO, ELANA K Ot E03.9 2015 OSCAR DO, ELANA K Ot E78.5 2015 OSCAR DO, ELANA K Ot E87.1 2015 OSCAR DO, ELANA K Ot E87.6 2015 OSCAR DO, ELANA K Ot I10 2015 OSCAR DO, ELANA K Ot I27.2 2015 OSCAR DO, ELANA K Ot I48.91 2015 OSCAR DO, ELANA K Ot I50.32 2015 OSCAR DO, ELANA K Ot I73.00 2015 OSCAR DO, ELANA K Ot J44.9 2015 OSCAR DO, ELANA K Ot J96.21 2015 OSCAR DO, ELANA K Ot Z87.891 07/01/2015 OSCAR DO, ELANA K Ot D50.9 07/01/2015 OSCAR DO, ELANA K Ot E03.9 07/01/2015 OSCAR DO, ELANA K Ot E78.5 07/01/2015 OSCAR DO, ELANA K Ot E87.1 07/01/2015 OSCAR DO, ELANA K Ot E87.6 07/01/2015 OSCAR DO, ELANA K Ot I10 07/01/2015 OSCAR DO, ELANA K Ot I27.2 07/01/2015 OSCAR DO, ELANA K Ot I48.91 07/01/2015 OSCAR DO, ELANA K Ot I50.32 07/01/2015 OSCAR DO, ELANA K Ot I73.00 07/01/2015 OSCAR DO, ELANA K Ot J44.9 07/01/2015 OSCAR DO, ELANA K Ot J96.21 07/01/2015 OSCAR DO, ELANA K Ot Z87.891 07/02/2015 OSCAR DO, ELANA K Ot D50.9 07/02/2015 OSCAR DO, ELANA K Ot E03.9 07/02/2015 OSCAR DO, ELANA K Ot E78.5 07/02/2015 OSCAR DO, ELANA K Ot E87.1 07/02/2015 OSCAR DO, ELANA K Ot E87.6 07/02/2015 OSCAR DO, ELANA K Ot I10 07/02/2015 OSCAR DO, ELANA K Ot I27.2 07/02/2015 OSCAR DO, ELANA K Ot I48.91 07/02/2015 OSCAR DO, ELANA K Ot I50.32 07/02/2015 OSCAR DO, ELANA K Ot I73.00 07/02/2015 OSCAR DO, ELANA K Ot J44.9 07/02/2015 OSCAR DO, ELANA K Ot J96.21 07/02/2015 OSCAR DO, ELANA K Ot Z87.891 07/02/2015 OSCAR DO, ELANA K Ot D50.9 07/02/2015 OSCAR DO, ELANA K Ot E03.9 07/02/2015 OSCAR DO, ELANA K Ot E78.5 07/02/2015 OSCAR DO, ELANA K Ot E87.1 07/02/2015 OSCAR DO, ELANA K Ot E87.6 07/02/2015 OSCAR DO, ELANA K Ot I10 07/02/2015 OSCAR DO, ELANA K Ot I27.2 07/02/2015 OSCAR DO, ELANA K Ot I48.91 07/02/2015 OSCAR DO, ELANA K Ot I50.32 07/02/2015 OSCAR DO, ELANA K Ot I73.00 07/02/2015 OSCAR DO, ELANA K Ot J44.9 07/02/2015 OSCAR DO, ELANA K Ot J96.21 07/02/2015 OSCAR DO, ELANA K Ot Z87.891 07/02/2015 OSCAR DO, ELANA K Ot D50.9 IRON DEFICIENCY ANEMIA, UNSPECIFIED 07/02/2015 ELANA OSCAR DO Ot E03.9 HYPOTHYROIDISM, UNSPECIFIED 07/02/2015 ELANA OSCAR DO Ot E78.5 HYPERLIPIDEMIA, UNSPECIFIED 07/02/2015 ELANA OSCAR DO K Ot E83.41 HYPERMAGNESEMIA 07/02/2015 ELANA OSCAR DO K Ot E87.1 HYPO-OSMOLALITY AND HYPONATREMIA 07/02/2015 ELANA OSCAR DO K Ot E87.6 HYPOKALEMIA 07/02/2015 ABDI OSCAR DOA K Ot F24 SHARED PSYCHOTIC DISORDER 07/02/2015 ABDI OSCAR DOA K Ot I10 ESSENTIAL (PRIMARY) HYPERTENSION 07/02/2015 ABDI OSCAR DOA K Ot I27.2 OTHER SECONDARY PULMONARY HYPERTENSION 07/02/2015 ABDI OSCAR DOA K Ot I34.0 NONRHEUMATIC MITRAL (VALVE) INSUFFICIENC 07/02/2015 ABDI OSCAR DOA K Ot I48.91 UNSPECIFIED ATRIAL FIBRILLATION 07/02/2015 ABDI OSCAR DOA K Ot I50.32 CHRONIC DIASTOLIC (CONGESTIVE) HEART ROB 07/02/2015 CELESTINA NEMWAN ELANA Schafer Ot 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 07/02/2015 ELANA OSCAR DO Ot J44.1 CHRONIC OBSTRUCTIVE PULMONARY DISEASE W 07/02/2015 ELANA OSCAR DO Ot J96.21 ACUTE AND CHRONIC RESPIRATORY FAILURE [place] 07/02/2015 ELANA OSCAR DO Ot Z87.891 PERSONAL HISTORY OF NICOTINE DEPENDENCE 08/08/2015 LOUISE SPARROW MD Ot E78.2 08/08/2015 LOUISE SPARROW MD Ot I10 08/08/2015 LOUISE SPARROW MD Ot I48.0 08/08/2015 LOUISE SPARROW MD Ot R06.02 08/08/2015 LOUISE SPARROW MD Ot E78.5 HYPERLIPIDEMIA, UNSPECIFIED 08/08/2015 LOUISE SPARROW MD Ot I10 ESSENTIAL (PRIMARY) HYPERTENSION 08/08/2015 LOUISE SPARROW MD Ot I25.10 ATHSCL HEART DISEASE OF [place] CORONARY 08/08/2015 LOUISE SPARROW MD Ot I27.2 OTHER SECONDARY PULMONARY HYPERTENSION 08/08/2015 LOUISE SPARROW MD Ot I48.0 PAROXYSMAL ATRIAL FIBRILLATION 08/08/2015 LOUISE SPARROW MD, Ot I50.30 UNSPECIFIED DIASTOLIC (CONGESTIVE) HEART 08/08/2015 LOUISE SPARROW MD Ot J44.9 CHRONIC OBSTRUCTIVE PULMONARY DISEASE, U 08/08/2015 LOUISE SPARROW MD Ot R94.39 ABNORMAL RESULT OF OTHER CARDIOVASCULAR 08/08/2015 LOUISE SPARROW MD Ot Z79.899 OTHER DETENTION (CURRENT) DRUG THERAPY 08/08/2015 LOUISE SPARROW MD Ot Z87.891 PERSONAL HISTORY OF NICOTINE DEPENDENCE 08/28/2015 AMBROSIO KUMAR DO Ot G47.36 SLEEP RELATED HYPOVENTILATION IN CONDITI 08/28/2015 AMBROSIO KUMAR DO Ot R06.83 SNORING 09/20/2015 LOUISE SPARROW MD Ot I65.23 10/09/2015 RAJAT GRIGSBY APRN Ot I27.2 10/09/2015 RAJAT GRIGSBY APRN Ot J43.9 10/09/2015 RAJAT GRIGSBY APRN Ot R09.02 10/23/2015 LOUISE SPARROW MD Ot I10 10/23/2015 LOUISE SPARROW MD Ot I27.2 11/13/2015 RAJAT 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 Ot I27.2 11/13/2015 RAJAT GRIGSBY APRN Ot J43.9 11/13/2015 RAJAT GRIGSBY APRN Ot R09.02 11/24/2015 Ot 427.31 ATRIAL FIBRILLATION 11/24/2015 BOSTON SZYMANSKI, JIM Ot V72.84 EXAM PRE-OPERATIVE NOS 11/24/2015 LOUISE SPARROW MD Ot 272.4 HYPERLIPIDEMIA NEC/NOS 11/24/2015 LOUISE SPARROW MD Ot 397.0 TRICUSPID VALVE DISEASE 11/24/2015 LOUISE SPARROW MD Ot 401.9 HYPERTENSION NOS 11/24/2015 LOUISE SPARROW MD Ot 416.8 CHR PULMON HEART DIS NEC 11/24/2015 LOUISE SPARROW MD Ot 424.0 MITRAL VALVE DISORDER 11/24/2015 LOUISE SPARROW MD Ot 427.31 ATRIAL FIBRILLATION 11/24/2015 LOUISE SPARROW MD Ot 429.9 HEART DISEASE NOS 11/24/2015 LOUISE SPARROW MD Ot 433.10 CAROTID ARTERY OCCLUSION W O CEREBRAL IN 11/24/2015 AMBROSIO KUMAR DO Ot 786.09 RESPIRATORY ABNORM NEC 11/24/2015 AMBROSIO KUMAR DO Ot 496 CHR AIRWAY OBSTRUCT NEC 11/24/2015 ANJU STANFORD MD Ot 789.01 ABDOMINAL PAIN, RIGHT UPPER QUADRANT 11/24/2015 ANJU STANFORD MD Ot 789.06 ABDOMINAL PAIN, EPIGASTRIC 11/24/2015 BOSTON SZYMANSKI, JIM Ot V72.84 EXAM PRE-OPERATIVE NOS 11/24/2015 LOUISE SPARROW MD Ot E78.2 MIXED HYPERLIPIDEMIA 11/24/2015 LOUISE SPARROW MD Ot I10 ESSENTIAL (PRIMARY) HYPERTENSION 11/24/2015 LOUISE SPARROW MD Ot I48.0 PAROXYSMAL ATRIAL FIBRILLATION 11/24/2015 LOUISE SPARROW MD Ot R06.02 SHORTNESS OF BREATH 11/24/2015 RAJAT GRIGSBY APRN Ot I27.2 OTHER SECONDARY PULMONARY HYPERTENSION 11/24/2015 RAJAT GRIGSBY APRN Ot J43.9 EMPHYSEMA, UNSPECIFIED 11/24/2015 RAJAT GRIGSBY APRN Ot R09.02 HYPOXEMIA 11/24/2015 LOUISE SPARROW MD Ot I65.23 OCCLUSION AND STENOSIS OF BILATERAL [place] 11/24/2015 LOUISE SPARROW MD, Ot I10 ESSENTIAL (PRIMARY) HYPERTENSION 11/24/2015 LOUISE SPARROW MD, Ot I27.2 OTHER SECONDARY PULMONARY HYPERTENSION 11/24/2015 GEORGETTE SHIELDS MD Ot D64.9 ANEMIA, UNSPECIFIED 11/24/2015 GEORGETTE SHIELDS MD Ot E03.9 HYPOTHYROIDISM, UNSPECIFIED 11/24/2015 GEORGETTE SHIELDS MD Ot F17.210 NICOTINE DEPENDENCE, CIGARETTES, UNCOMPL 11/24/2015 GEORGETTE SHIELDS MD Ot I10 ESSENTIAL (PRIMARY) HYPERTENSION 11/24/2015 GEORGETTE SHIELDS MD, Ot I27.2 OTHER SECONDARY PULMONARY HYPERTENSION 11/24/2015 GEORGETTE SHIELDS MD, Ot I48.2 CHRONIC ATRIAL FIBRILLATION 11/24/2015 GEORGETTE SHIELDS MD, Ot J44.9 CHRONIC OBSTRUCTIVE PULMONARY DISEASE, U 11/24/2015 GEORGETTE SHIELDS MD Ot K21.9 GASTRO-ESOPHAGEAL REFLUX DISEASE WITHOUT 11/24/2015 GEORGETTE SHIELDS MD Ot R04.0 EPISTAXIS 11/24/2015 GEORGETTE SHIELDS MD Ot Z95.820 PERIPHERAL VASCULAR ANGIOPLASTY STATUS W 11/24/2015 GEORGETTE SHIELDS MD Ot Z99.81 DEPENDENCE ON SUPPLEMENTAL OXYGEN 12/07/2015 TUNG SAVAGE MD Ot R04.0 EPISTAXIS 12/10/2015 TUNG SAVAGE MD Ot R04.0 EPISTAXIS 01/06/2016 RAJAT GRIGSBY APRN Ot I27.2 OTHER SECONDARY PULMONARY HYPERTENSION 01/06/2016 RAJAT GRIGSBY APRN Ot J43.9 EMPHYSEMA, UNSPECIFIED 01/06/2016 ARJAT GRIGSBY APRN Ot R09.02 HYPOXEMIA 02/05/2016 SKYE GARCIA MD Ot D68.32 HEMORRHAGIC DISORD D/T EXTRINSIC CIRCULA 02/05/2016 SKYE GARCIA MD Ot I10 ESSENTIAL (PRIMARY) HYPERTENSION 02/05/2016 SKYE GARCIA MD Ot I48.2 CHRONIC ATRIAL FIBRILLATION 02/05/2016 SKYE GARCIA MD Ot J44.9 CHRONIC OBSTRUCTIVE PULMONARY DISEASE, U 02/05/2016 SKYE GARCIA MD Ot K06.8 OTH DISRD OF [place] AND EDENTULOUS ALVE 02/05/2016 SKYE GARCIA MD Ot Z79.01 FINANCIAL BUSINESS ANALYST (CURRENT) USE OF ANTICOAGULANT 02/05/2016 SKYE GARCIA MD Ot Z79.02 DETENTION (CURRENT) USE OF ANTITHROMBOTI 02/05/2016 SKYE GARCIA MD Ot Z95.5 PRESENCE OF CORONARY ANGIOPLASTY IMPLANT 02/07/2016 SKYE GARCIA MD Ot I48.2 CHRONIC ATRIAL FIBRILLATION 02/07/2016 SKYE GARCIA MD Ot K06.8 OTH DISRD OF [place] AND EDENTULOUS ALVE 02/07/2016 SKYE GARCIA MD Ot Z79.01 FINANCIAL BUSINESS ANALYST (CURRENT) USE OF ANTICOAGULANT 02/07/2016 SKYE GARCIA MD Ot Z79.02 FINANCIAL BUSINESS ANALYST (CURRENT) USE OF ANTITHROMBOTI 02/19/2016 RAJAT GRIGSBY APRN Ot I27.2 OTHER SECONDARY PULMONARY HYPERTENSION 02/19/2016 RAJAT GRIGSBY APRN Ot J43.9 EMPHYSEMA, UNSPECIFIED 02/19/2016 RAJAT GRIGSBY APRN Ot R09.02 HYPOXEMIA 03/04/2016 JOSÉ DO AMBROSIO Massimo Ot I27.2 OTHER SECONDARY PULMONARY HYPERTENSION 03/04/2016 JOSÉ DOMYLESAMBROSIO M Ot J43.9 EMPHYSEMA, UNSPECIFIED 03/04/2016 JOSÉ DO AMBROSIO M Ot R06.02 SHORTNESS OF BREATH 03/04/2016 JOSÉ DO AMBROSIO M Ot R09.02 HYPOXEMIA 03/05/2016 JOSÉ DO AMBROSIO M Ot I27.2 OTHER SECONDARY PULMONARY HYPERTENSION 03/05/2016 JOSÉ DO AMBROSIO M Ot J43.9 EMPHYSEMA, UNSPECIFIED 03/05/2016 JOSÉ DO AMBROSIO M Ot R06.02 SHORTNESS OF BREATH 03/05/2016 JOSÉ DO AMBROSIO M Ot R09.02 HYPOXEMIA 03/13/2016 JOSÉ DO AMBROSIO M Ot I27.2 OTHER SECONDARY PULMONARY HYPERTENSION 03/13/2016 JOSÉ DO AMBROSIO Massimo Ot J43.9 EMPHYSEMA, UNSPECIFIED 03/13/2016 JOSÉ DO AMBROSIO M Ot R06.02 SHORTNESS OF BREATH 03/13/2016 JOSÉ DO AMBROSIO M Ot R09.02 HYPOXEMIA 03/14/2016 RAJAT GRIGSBY APRN Ot I27.2 OTHER SECONDARY PULMONARY HYPERTENSION 03/14/2016 RAJAT GRIGSBY APRN Ot J43.9 EMPHYSEMA, UNSPECIFIED 03/14/2016 RAJAT GRIGSBY APRN Ot R09.02 HYPOXEMIA 03/28/2016 Ot 427.31 ATRIAL FIBRILLATION 03/28/2016 BOSTON SZYMANSKI, JIM Ot V72.84 EXAM PRE-OPERATIVE NOS 03/28/2016 LOUISE SPARROW MD Ot 272.4 HYPERLIPIDEMIA NEC/NOS 03/28/2016 LOUISE SPARROW MD Ot 397.0 TRICUSPID VALVE DISEASE 03/28/2016 LOUISE SPARROW MD Ot 401.9 HYPERTENSION NOS 03/28/2016 LOUISE SPARROW MD Ot 416.8 CHR PULMON HEART DIS NEC 03/28/2016 LOUISE SPARROW MD Ot 424.0 MITRAL VALVE DISORDER 03/28/2016 LOIUSE SPARROW MD Ot 427.31 ATRIAL FIBRILLATION 03/28/2016 LOUISE SPARROW MD Ot 429.9 HEART DISEASE NOS 03/28/2016 LOUISE SPARROW MD Ot 433.10 CAROTID ARTERY OCCLUSION W O CEREBRAL IN 03/28/2016 AMBROSIO KUMAR DO Ot 786.09 RESPIRATORY ABNORM NEC 03/28/2016 AMBROSIO KUMAR DO Ot 496 CHR AIRWAY OBSTRUCT NEC 03/28/2016 ANJU STANFORD MD Ot 789.01 ABDOMINAL PAIN, RIGHT UPPER QUADRANT 03/28/2016 ANJU STANFORD MD Ot 789.06 ABDOMINAL PAIN, EPIGASTRIC 03/28/2016 BOSTON SZYMANSKI, JIM Ot V72.84 EXAM PRE-OPERATIVE NOS 03/28/2016 LOUISE SPARROW MD Ot E78.2 MIXED HYPERLIPIDEMIA 03/28/2016 LOUISE SPARROW MD Ot I10 ESSENTIAL (PRIMARY) HYPERTENSION 03/28/2016 LOUISE SPARROW MD Ot I48.0 PAROXYSMAL ATRIAL FIBRILLATION 03/28/2016 LOUISE SPARROW MD Ot R06.02 SHORTNESS OF BREATH 03/28/2016 LOUISE SPARROW MD Ot I65.23 OCCLUSION AND STENOSIS OF BILATERAL [place] 03/28/2016 LOUISE SPARROW MD Ot I10 ESSENTIAL (PRIMARY) HYPERTENSION 03/28/2016 LOUISE SPARROW MD Ot I27.2 OTHER SECONDARY PULMONARY HYPERTENSION 03/28/2016 RAJAT GRIGSBY APRN Ot I27.2 OTHER SECONDARY PULMONARY HYPERTENSION 03/28/2016 RAJAT GRIGSBY APRN Ot J43.9 EMPHYSEMA, UNSPECIFIED 03/28/2016 RAJAT GRIGSBY APRN Ot R09.02 HYPOXEMIA 03/28/2016 RAJAT GRIGSBY APRN Ot I27.2 OTHER SECONDARY PULMONARY HYPERTENSION 03/28/2016 RAJAT GRIGSBY APRN Ot J43.9 EMPHYSEMA, UNSPECIFIED 03/28/2016 RAJAT GRIGSBY APRN Ot R09.02 HYPOXEMIA 03/28/2016 AMBROSIO KUMAR DO Ot I27.2 OTHER SECONDARY PULMONARY HYPERTENSION 03/28/2016 AMBROSIO KUMAR DO Ot J43.9 EMPHYSEMA, UNSPECIFIED 03/28/2016 AMBROSIO KUMAR DO Ot R06.02 SHORTNESS OF BREATH 03/28/2016 AMBROSIO KUMAR DO Ot R09.02 HYPOXEMIA 03/31/2016 JELANI KONG, KARON K Ot E78.2 MIXED HYPERLIPIDEMIA 03/31/2016 JELANI PA, KARON K Ot I10 ESSENTIAL (PRIMARY) HYPERTENSION 03/31/2016 JELANI PA, KARON K Ot I50.32 CHRONIC DIASTOLIC (CONGESTIVE) HEART ROB 03/31/2016 JELANI PA, KARON K Ot I65.23 OCCLUSION AND STENOSIS OF BILATERAL [place] 03/31/2016 JELANI PA, KARON K Ot E78.2 MIXED HYPERLIPIDEMIA 03/31/2016 JELANI PA, KARON K Ot I10 ESSENTIAL (PRIMARY) HYPERTENSION 03/31/2016 JELANI PA, KARON K Ot I50.32 CHRONIC DIASTOLIC (CONGESTIVE) HEART ROB 03/31/2016 JELANI KONG, KARON K Ot I65.23 OCCLUSION AND STENOSIS OF BILATERAL [place] 04/07/2016 RAJAT GRIGSBY 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 Ot I27.2 OTHER SECONDARY PULMONARY HYPERTENSION 04/07/2016 RAJAT GRIGSBY 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 Ot J43.9 EMPHYSEMA, UNSPECIFIED 04/07/2016 RAJAT GRIGSBY 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 Ot R09.02 HYPOXEMIA 04/08/2016 RAJAT GRIGSBY 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 Ot I27.2 OTHER SECONDARY PULMONARY HYPERTENSION 04/08/2016 RAJAT GRIGSBY 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 Ot J43.9 EMPHYSEMA, UNSPECIFIED 04/08/2016 RAJAT GRIGSBY 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 Ot R09.02 HYPOXEMIA 04/09/2016 RAJAT GRIGSBY 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 Ot I27.2 OTHER SECONDARY PULMONARY HYPERTENSION 04/09/2016 RAJAT GRIGSBY 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 Ot J43.9 EMPHYSEMA, UNSPECIFIED 04/09/2016 RAJAT GRIGSBY 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 Ot R09.02 HYPOXEMIA 04/09/2016 JELANI PA, KARON K Ot E78.2 MIXED HYPERLIPIDEMIA 04/09/2016 JELANI KONG, KARON K Ot I10 ESSENTIAL (PRIMARY) HYPERTENSION 04/09/2016 JELANI PA, KARON K Ot I50.32 CHRONIC DIASTOLIC (CONGESTIVE) HEART ROB 04/09/2016 JELANI PA, KARON K Ot I65.23 OCCLUSION AND STENOSIS OF BILATERAL [place] 04/14/2016 RAJAT GRIGSBY 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 Ot I27.2 OTHER SECONDARY PULMONARY HYPERTENSION 04/14/2016 RAJAT GRIGSBY 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 Ot J43.9 EMPHYSEMA, UNSPECIFIED 04/14/2016 RAJAT GRIGSBY 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 Ot R09.02 HYPOXEMIA 05/14/2016 SEBRAJAT CORBETT 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 Ot I27.2 OTHER SECONDARY PULMONARY HYPERTENSION 05/14/2016 SEBRAJAT CORBETT 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 Ot J43.9 EMPHYSEMA, UNSPECIFIED 05/14/2016 SEBRAJAT CORBETT 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 Ot R09.02 HYPOXEMIA 07/07/2016 SEBJOSE CORBETTINE Genevieve 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 Ot I27.2 OTHER SECONDARY PULMONARY HYPERTENSION 07/07/2016 SEBRAJAT CORBETT 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 Ot J43.9 EMPHYSEMA, UNSPECIFIED 07/07/2016 RAJAT GRIGSBY 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 Ot R09.02 HYPOXEMIA 07/08/2016 SEBRAJAT CORBETT 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 Ot I27.2 OTHER SECONDARY PULMONARY HYPERTENSION 07/08/2016 RAJAT GRIGSBY 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 Ot J43.9 EMPHYSEMA, UNSPECIFIED 07/08/2016 RAJAT GRIGSBY 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 Ot R09.02 HYPOXEMIA 07/16/2016 SKYE GARCIA MD Ot D68.32 HEMORRHAGIC DISORD D/T EXTRINSIC CIRCULA 07/16/2016 SKYE GARCIA MD Ot I10 ESSENTIAL (PRIMARY) HYPERTENSION 07/16/2016 SKYE GARCIA MD Ot I48.2 CHRONIC ATRIAL FIBRILLATION 07/16/2016 SKYE GARCIA MD, Ot J44.9 CHRONIC OBSTRUCTIVE PULMONARY DISEASE, U 07/16/2016 SKYE GARCIA MD, Ot Z79.01 DETENTION (CURRENT) USE OF ANTICOAGULANT 07/16/2016 SKYE GARCIA MD Ot Z79.02 FINANCIAL BUSINESS ANALYST (CURRENT) USE OF ANTITHROMBOTI 07/16/2016 SKYE GARCIA MD Ot Z95.5 PRESENCE OF CORONARY ANGIOPLASTY IMPLANT 08/11/2016 Ot 427.31 ATRIAL FIBRILLATION 08/11/2016 BOSTON SZYMANSKI, JIM Ot V72.84 EXAM PRE-OPERATIVE NOS 08/11/2016 LOUISE SPARROW MD Ot 272.4 HYPERLIPIDEMIA NEC/NOS 08/11/2016 LOUISE SPARROW MD Ot 397.0 TRICUSPID VALVE DISEASE 08/11/2016 LOUISE SPARROW MD Ot 401.9 HYPERTENSION NOS 08/11/2016 LOUISE SPARROW MD Ot 416.8 CHR PULMON HEART DIS NEC 08/11/2016 LOUISE SPARROW MD Ot 424.0 MITRAL VALVE DISORDER 08/11/2016 LOUISE SPARROW MD Ot 427.31 ATRIAL FIBRILLATION 08/11/2016 LOUISE SPARROW MD Ot 429.9 HEART DISEASE NOS 08/11/2016 LOUISE SPARROW MD Ot 433.10 CAROTID ARTERY OCCLUSION W O CEREBRAL IN 08/11/2016 AMBROSIO KUMAR DO Ot 786.09 RESPIRATORY ABNORM NEC 08/11/2016 AMBROSIO KUMAR DO Ot 496 CHR AIRWAY OBSTRUCT NEC 08/11/2016 ABDOULAYE SZYMANSKI, ANJU Melara Ot 789.01 ABDOMINAL PAIN, RIGHT UPPER QUADRANT 08/11/2016 ANJU STANFORD MD Ot 789.06 ABDOMINAL PAIN, EPIGASTRIC 08/11/2016 BOSTON SZYMANSKI, JIM Ot V72.84 EXAM PRE-OPERATIVE NOS 08/11/2016 LOUISE SPARROW MD Ot E78.2 MIXED HYPERLIPIDEMIA 08/11/2016 LOUISE SPARROW MD Ot I10 ESSENTIAL (PRIMARY) HYPERTENSION 08/11/2016 LOUISE SPARROW MD Ot I48.0 PAROXYSMAL ATRIAL FIBRILLATION 08/11/2016 LOUISE SPARROW MD Ot R06.02 SHORTNESS OF BREATH 08/11/2016 LOUISE SPARROW MD Ot I65.23 OCCLUSION AND STENOSIS OF BILATERAL [place] 08/11/2016 LOUISE SPARROW MD Ot I10 ESSENTIAL (PRIMARY) HYPERTENSION 08/11/2016 LOUISE SPARROW MD Ot I27.2 OTHER SECONDARY PULMONARY HYPERTENSION 08/11/2016 RAJAT GRIGSBY APRN Ot I27.2 OTHER SECONDARY PULMONARY HYPERTENSION 08/11/2016 RAJAT GRIGSBY APRN Ot J43.9 EMPHYSEMA, UNSPECIFIED 08/11/2016 RAJAT GRIGSBY APRN Ot R09.02 HYPOXEMIA 08/11/2016 AMBROSIO KUMAR DO Ot I27.2 OTHER SECONDARY PULMONARY HYPERTENSION 08/11/2016 AMBROSIO KUMAR DO, Ot J43.9 EMPHYSEMA, UNSPECIFIED 08/11/2016 AMBROSIO KUMAR DO Ot R06.02 SHORTNESS OF BREATH 08/11/2016 AMBROSIO KUMAR DO Ot R09.02 HYPOXEMIA 08/11/2016 JELANI KONG KARON K Ot E78.2 MIXED HYPERLIPIDEMIA 08/11/2016 JELANI KONG KARON K Ot I10 ESSENTIAL (PRIMARY) HYPERTENSION 08/11/2016 JELANI KONG KARON K Ot I50.32 CHRONIC DIASTOLIC (CONGESTIVE) HEART ROB 08/11/2016 JELANI KONG KARON K Ot I65.23 OCCLUSION AND STENOSIS OF [place]ILATERAL [place] 08/11/2016 RAJAT GRIGSBY 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 Ot I27.2 OTHER SECONDARY PULMONARY HYPERTENSION 08/11/2016 RAJAT GRIGSBY 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 Ot J43.9 EMPHYSEMA, UNSPECIFIED 08/11/2016 RAJAT GRIGSBY APRN Ot R09.02 HYPOXEMIA 08/11/2016 RAJAT GRIGSBY 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 Ot R06.02 SHORTNESS OF BREATH 08/12/2016 RAJAT GRIGSBY 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 Ot R06.02 SHORTNESS OF BREATH 08/13/2016 RAJAT GRIGSBY 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 Ot J43.9 EMPHYSEMA, UNSPECIFIED 08/13/2016 RAJAT GRIGSBY 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 Ot I27.2 OTHER SECONDARY PULMONARY HYPERTENSION 08/13/2016 RAJAT GRIGSBY 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 Ot J43.9 EMPHYSEMA, UNSPECIFIED 08/13/2016 RAJAT GRIGSBY 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 Ot R06.02 SHORTNESS OF BREATH 08/13/2016 RAJAT GRIGSBY 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 Ot R09.02 HYPOXEMIA 08/14/2016 RAJAT GRIGSBY 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 Ot J43.9 EMPHYSEMA, UNSPECIFIED 08/29/2016 RAJAT GRIGSBY 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 Ot I27.2 OTHER SECONDARY PULMONARY HYPERTENSION 08/29/2016 RAJAT GRIGSBY 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 Ot J43.9 EMPHYSEMA, UNSPECIFIED 08/29/2016 RAJAT GRIGSBY 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 Ot R06.02 SHORTNESS OF BREATH 08/29/2016 RAJAT GRIGSBY 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 Ot R09.02 HYPOXEMIA 08/29/2016 RAJAT GRIGSBY 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 Ot J43.9 EMPHYSEMA, UNSPECIFIED 09/16/2016 RAJAT GRIGSBY 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 Ot J43.9 EMPHYSEMA, UNSPECIFIED 09/16/2016 RAJAT GRIGSBY 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 Ot R06.02 SHORTNESS OF BREATH 10/07/2016 Ot 427.31 ATRIAL FIBRILLATION 10/07/2016 JIM MEAD MD Ot V72.84 EXAM PRE-OPERATIVE NOS 10/07/2016 LOUISE SPARROW MD Ot 272.4 HYPERLIPIDEMIA NEC/NOS 10/07/2016 LOUISE SPARROW MD Ot 397.0 TRICUSPID VALVE DISEASE 10/07/2016 LOUISE SPARROW MD Ot 401.9 HYPERTENSION NOS 10/07/2016 LOUISE SPARROW MD Ot 416.8 CHR PULMON HEART DIS NEC 10/07/2016 LOUISE SPARROW MD Ot 424.0 MITRAL VALVE DISORDER 10/07/2016 LOUIES SPARROW MD Ot 427.31 ATRIAL FIBRILLATION 10/07/2016 LOUISE SPARROW MD Ot 429.9 HEART DISEASE NOS 10/07/2016 LOUISE SPARROW MD Ot 433.10 CAROTID ARTERY OCCLUSION W O CEREBRAL IN 10/07/2016 AMBROSIO KUMAR DO Ot 786.09 RESPIRATORY ABNORM NEC 10/07/2016 AMBROSIO KUMAR DO Ot 496 CHR AIRWAY OBSTRUCT NEC 10/07/2016 ANJU STANFORD MD Ot 789.01 ABDOMINAL PAIN, RIGHT UPPER QUADRANT 10/07/2016 ANJU STANFORD MD Ot 789.06 ABDOMINAL PAIN, EPIGASTRIC 10/07/2016 JIM MEAD MD Ot V72.84 EXAM PRE-OPERATIVE NOS 10/07/2016 LOUISE SPARROW MD Ot E78.2 MIXED HYPERLIPIDEMIA 10/07/2016 LOUISE SPARROW MD Ot I10 ESSENTIAL (PRIMARY) HYPERTENSION 10/07/2016 LOUISE SPARROW MD Ot I48.0 PAROXYSMAL ATRIAL FIBRILLATION 10/07/2016 LOUISE SPARROW MD Ot R06.02 SHORTNESS OF BREATH 10/07/2016 LOUISE SPARROW MD Ot I65.23 OCCLUSION AND STENOSIS OF [place]ILATERAL [place] 10/07/2016 LOUISE SPARROW MD Ot I10 ESSENTIAL (PRIMARY) HYPERTENSION 10/07/2016 LOUISE SPARROW MD Ot I27.2 OTHER SECONDARY PULMONARY HYPERTENSION 10/07/2016 RAJAT GRIGSBY APRN Ot I27.2 OTHER SECONDARY PULMONARY HYPERTENSION 10/07/2016 RAJAT GRIGSBY APRN Ot J43.9 EMPHYSEMA, UNSPECIFIED 10/07/2016 RAJAT GRIGSBY APRN Ot R09.02 HYPOXEMIA 10/07/2016 AMBROSIO KUMAR DO Ot I27.2 OTHER SECONDARY PULMONARY HYPERTENSION 10/07/2016 AMBROSIO KUMAR DO Ot J43.9 EMPHYSEMA, UNSPECIFIED 10/07/2016 AMBROSIO KUMAR DO Ot R06.02 SHORTNESS OF BREATH 10/07/2016 AMBROSIO KUMAR DO Ot R09.02 HYPOXEMIA 10/07/2016 KARON MORGAN Ot E78.2 MIXED HYPERLIPIDEMIA 10/07/2016 KARON MORGAN Ot I10 ESSENTIAL (PRIMARY) HYPERTENSION 10/07/2016 KARON MORGAN Ot I50.32 CHRONIC DIASTOLIC (CONGESTIVE) HEART ROB 10/07/2016 KARON MORGAN Ot I65.23 OCCLUSION AND STENOSIS OF BILATERAL [place] 10/07/2016 RAJAT GRIGSBY APRN Ot I27.2 OTHER SECONDARY PULMONARY HYPERTENSION 10/07/2016 RAJAT GRIGSBY 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 Ot J43.9 EMPHYSEMA, UNSPECIFIED 10/07/2016 RAJAT GRIGSBY 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 Ot R09.02 HYPOXEMIA 10/07/2016 RAJAT GRIGSBY 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 Ot I27.2 OTHER SECONDARY PULMONARY HYPERTENSION 10/07/2016 RAJAT GRIGSBY 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 Ot J43.9 EMPHYSEMA, UNSPECIFIED 10/07/2016 RAJAT GRIGSBY 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 Ot R06.02 SHORTNESS OF BREATH 10/07/2016 RAJAT GRIGSBY 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 Ot R09.02 HYPOXEMIA 10/07/2016 RAJAT GRIGSBY 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 Ot J43.9 EMPHYSEMA, UNSPECIFIED 10/07/2016 RAJAT GRIGSBY 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 Ot J43.9 EMPHYSEMA, UNSPECIFIED 10/07/2016 RAJAT GRIGSBY 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 Ot R06.02 SHORTNESS OF BREATH 10/08/2016 AMBROSIO KUMAR DO Ot J43.9 EMPHYSEMA, UNSPECIFIED 10/08/2016 AMBROSIO KUMAR DO Ot R06.02 SHORTNESS OF BREATH 10/17/2016 AMBROSIO KUMAR DO Ot J43.9 EMPHYSEMA, UNSPECIFIED 10/17/2016 AMBROSIO KUMAR DO Ot R06.02 SHORTNESS OF BREATH 10/29/2016 RAJAT GRIGSBY 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 Ot J43.9 EMPHYSEMA, UNSPECIFIED 11/19/2016 RAJAT GRIGSBY APRN Ot J43.9 EMPHYSEMA, UNSPECIFIED 12/17/2016 KARON MORGAN Ot E78.2 MIXED HYPERLIPIDEMIA 12/17/2016 KARON MORGAN Ot I10 ESSENTIAL (PRIMARY) HYPERTENSION 12/23/2016 TUNG SAVAGE MD Ot R04.0 EPISTAXIS 12/23/2016 TUNG SAVAGE MD Ot Z01.818 ENCOUNTER FOR OTHER PREPROCEDURAL EXAMIN 12/24/2016 TUNG SAVAGE MD Ot R04.0 EPISTAXIS 12/24/2016 TUNG SAVAGE MD Ot Z01.818 ENCOUNTER FOR OTHER PREPROCEDURAL EXAMIN 12/26/2016 KAORN MORGAN Ot E78.2 MIXED HYPERLIPIDEMIA 12/26/2016 KARON MORGAN Ot I10 ESSENTIAL (PRIMARY) HYPERTENSION 12/26/2016 TUNG SAVAGE MD Ot D64.9 ANEMIA, UNSPECIFIED 12/26/2016 TUNG SAVAGE MD Ot I11.0 HYPERTENSIVE HEART DISEASE WITH HEART FA 12/26/2016 TUNG SAVAGE MD Ot I27.2 OTHER SECONDARY PULMONARY HYPERTENSION 12/26/2016 TUNG SAVAGE MD Ot I48.91 UNSPECIFIED ATRIAL FIBRILLATION 12/26/2016 TUNG SAVAGE MD Ot I50.9 HEART FAILURE, UNSPECIFIED 12/26/2016 TUNG SAVAGE MD Ot 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 12/26/2016 TUNG SAVAGE MD Ot J44.9 CHRONIC OBSTRUCTIVE PULMONARY DISEASE, U 12/26/2016 TUNG SAVAGE MD Ot R04.0 EPISTAXIS 12/26/2016 TUNG SAVAGE MD Ot Z79.01 FINANCIAL BUSINESS ANALYST (CURRENT) USE OF ANTICOAGULANT 12/31/2016 TUNG SAVAGE MD Ot D64.9 ANEMIA, UNSPECIFIED 12/31/2016 TUNG SAVAGE MD Ot I11.0 HYPERTENSIVE HEART DISEASE WITH HEART FA 12/31/2016 TUNG SAVAGE MD Ot I27.2 OTHER SECONDARY PULMONARY HYPERTENSION 12/31/2016 TUNG SAVAGE MD Ot I48.91 UNSPECIFIED ATRIAL FIBRILLATION 12/31/2016 TUNG SAVAGE MD Ot I50.9 HEART FAILURE, UNSPECIFIED 12/31/2016 TUNG SAVAGE MD Ot 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 12/31/2016 TUNG SAVAGE MD, Ot J44.9 CHRONIC OBSTRUCTIVE PULMONARY DISEASE, U 12/31/2016 TUNG SAVAGE MD Ot R04.0 EPISTAXIS 12/31/2016 TUNG SAVAGE MD Ot Z79.01 DETENTION (CURRENT) USE OF ANTICOAGULANT 01/02/2017 TUNG SAVAGE MD Ot D64.9 ANEMIA, UNSPECIFIED 01/02/2017 TUNG SAVAGE MD Ot I11.0 HYPERTENSIVE HEART DISEASE WITH HEART FA 01/02/2017 TUNG SAVAGE MD Ot I27.2 OTHER SECONDARY PULMONARY HYPERTENSION 01/02/2017 TUNG SAVAGE MD Ot I48.91 UNSPECIFIED ATRIAL FIBRILLATION 01/02/2017 TUNG SAVAGE MD, Ot I50.9 HEART FAILURE, UNSPECIFIED 01/02/2017 TUNG SAVAGE MD, Ot 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 01/02/2017 TUNG SAVAGE MD, Ot J44.9 CHRONIC OBSTRUCTIVE PULMONARY DISEASE, U 01/02/2017 TUNG SAVAGE MD Ot R04.0 EPISTAXIS 01/02/2017 TUNG SAVAGE MD Ot Z79.01 FINANCIAL BUSINESS ANALYST (CURRENT) USE OF ANTICOAGULANT 01/16/2017 SMOOTH NEWMAN ANAT Ot D64.9 ANEMIA, UNSPECIFIED 01/16/2017 SMOOTH NEWMAN ANAT Ot E03.9 HYPOTHYROIDISM, UNSPECIFIED 01/16/2017 SMOOTH NEWMAN ANAT Ot E78.00 PURE HYPERCHOLESTEROLEMIA, UNSPECIFIED 01/16/2017 SMOOTH NEWMAN ANAT Ot E78.5 HYPERLIPIDEMIA, UNSPECIFIED 01/16/2017 SMOOTH NEWMAN ANAT Ot I11.0 HYPERTENSIVE HEART DISEASE WITH HEART FA 01/16/2017 SMOOTH NEWMAN ANAT Ot I25.10 ATHSCL HEART DISEASE OF [place] CORONARY 01/16/2017 SMOOTH NEWMAN ANAT Ot I27.2 OTHER SECONDARY PULMONARY HYPERTENSION 01/16/2017 SMOOTH NEWMAN ANAT Ot I48.2 CHRONIC ATRIAL FIBRILLATION 01/16/2017 [place] REBOLLAR DOI Ot I50.30 UNSPECIFIED DIASTOLIC (CONGESTIVE) HEART 01/16/2017 SMOOTH NEWMAN ANAT Ot 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 01/16/2017 SMOOTH NEWMAN ANAT Ot I73.9 PERIPHERAL VASCULAR DISEASE, UNSPECIFIED 01/16/2017 ANAT REBOLLAR DO Ot J44.9 CHRONIC OBSTRUCTIVE PULMONARY DISEASE, U 01/16/2017 ANAT REBOLLAR DO Ot K21.9 GASTRO-ESOPHAGEAL REFLUX DISEASE WITHOUT 01/16/2017 ANAT REBOLLAR DO Ot K92.2 GASTROINTESTINAL HEMORRHAGE, UNSPECIFIED 01/16/2017 ANAT REBOLLAR DO Ot Z79.01 FINANCIAL BUSINESS ANALYST (CURRENT) USE OF ANTICOAGULANT 01/16/2017 ANAT REBOLLAR DO Ot Z79.02 FINANCIAL BUSINESS ANALYST (CURRENT) USE OF ANTITHROMBOTI 01/16/2017 ANAT REBOLLAR DO Ot Z87.891 PERSONAL HISTORY OF NICOTINE DEPENDENCE 01/16/2017 ANAT REBOLLAR DO Ot Z95.828 PRESENCE OF OTHER VASCULAR IMPLANTS AND 01/16/2017 NAAT REBOLLAR DO Ot Z99.81 DEPENDENCE ON SUPPLEMENTAL OXYGEN 01/16/2017 ANAT REBOLLAR DO Ot I48.91 UNSPECIFIED ATRIAL FIBRILLATION 03/17/2017 Ot 427.31 ATRIAL FIBRILLATION 03/17/2017 JIM MEAD MD Ot V72.84 EXAM PRE-OPERATIVE NOS 03/17/2017 LOUISE SPARROW MD Ot 272.4 HYPERLIPIDEMIA NEC/NOS 03/17/2017 LOUISE SPARROW MD Ot 397.0 TRICUSPID VALVE DISEASE 03/17/2017 LOUISE SPARROW MD Ot 401.9 HYPERTENSION NOS 03/17/2017 LOUISE SPARROW MD Ot 416.8 CHR PULMON HEART DIS NEC 03/17/2017 LOUISE SPARROW MD Ot 424.0 MITRAL VALVE DISORDER 03/17/2017 LOUISE SPARROW MD Ot 427.31 ATRIAL FIBRILLATION 03/17/2017 LOUISE SPARROW MD Ot 429.9 HEART DISEASE NOS 03/17/2017 LOUISE SPARROW MD Ot 433.10 CAROTID ARTERY OCCLUSION W O CEREBRAL IN 03/17/2017 AMBROSIO KUMAR DO Ot 786.09 RESPIRATORY ABNORM NEC 03/17/2017 AMBROSIO KUMAR DO Ot 496 CHR AIRWAY OBSTRUCT NEC 03/17/2017 ANJU STANFORD MD Ot 789.01 ABDOMINAL PAIN, RIGHT UPPER QUADRANT 03/17/2017 ANJU STANFORD MD Ot 789.06 ABDOMINAL PAIN, EPIGASTRIC 03/17/2017 JIM MEAD MD Ot V72.84 EXAM PRE-OPERATIVE NOS 03/17/2017 LOUISE SPARROW MD Ot E78.2 MIXED HYPERLIPIDEMIA 03/17/2017 LOUISE SPARROW MD Ot I10 ESSENTIAL (PRIMARY) HYPERTENSION 03/17/2017 LOUISE SPARROW MD Ot I48.0 PAROXYSMAL ATRIAL FIBRILLATION 03/17/2017 LOUISE SPARROW MD Ot R06.02 SHORTNESS OF BREATH 03/17/2017 LOUISE SPARROW MD Ot I65.23 OCCLUSION AND STENOSIS OF [place]ILATERAL [place] 03/17/2017 LOUISE SPARROW MD Ot I10 ESSENTIAL (PRIMARY) HYPERTENSION 03/17/2017 LOUISE SPARROW MD Ot I27.2 OTHER SECONDARY PULMONARY HYPERTENSION 03/17/2017 RAJAT GRIGSBY 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 Ot I27.2 OTHER SECONDARY PULMONARY HYPERTENSION 03/17/2017 RAJAT GRIGSBY APRN Ot J43.9 EMPHYSEMA, UNSPECIFIED 03/17/2017 RAJAT GRIGSBY APRN Ot R09.02 HYPOXEMIA 03/17/2017 AMBROSIO KUMAR DO Ot I27.2 OTHER SECONDARY PULMONARY HYPERTENSION 03/17/2017 AMBROSIO KUMAR DO Ot J43.9 EMPHYSEMA, UNSPECIFIED 03/17/2017 AMBROSIO KUMAR DO Ot R06.02 SHORTNESS OF BREATH 03/17/2017 AMBROSIO KUMAR DO Ot R09.02 HYPOXEMIA 03/17/2017 KARON MORGAN Ot E78.2 MIXED HYPERLIPIDEMIA 03/17/2017 KARON MORGAN Ot I10 ESSENTIAL (PRIMARY) HYPERTENSION 03/17/2017 KARON MORGAN Ot I50.32 CHRONIC DIASTOLIC (CONGESTIVE) HEART ROB 03/17/2017 KARON MORGAN Ot I65.23 OCCLUSION AND STENOSIS OF [place] 03/17/2017 RAJAT GRIGSBY 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 Ot I27.2 OTHER SECONDARY PULMONARY HYPERTENSION 03/17/2017 RAJAT GRIGSBY 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 Ot J43.9 EMPHYSEMA, UNSPECIFIED 03/17/2017 RAJAT GRIGSBY 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 Ot R09.02 HYPOXEMIA 03/17/2017 RAJAT GRIGSBY 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 Ot I27.2 OTHER SECONDARY PULMONARY HYPERTENSION 03/17/2017 RAJAT GRIGSBY 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 Ot J43.9 EMPHYSEMA, UNSPECIFIED 03/17/2017 RAJAT GRIGSBY 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 Ot R06.02 SHORTNESS OF BREATH 03/17/2017 RAJAT GRIGSBY APRN Ot R09.02 HYPOXEMIA 03/17/2017 RAJAT GRIGSBY 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 Ot J43.9 EMPHYSEMA, UNSPECIFIED 03/17/2017 RAJAT GRIGSBY APRN Ot J43.9 EMPHYSEMA, UNSPECIFIED 03/17/2017 RAJAT GRIGSBY APRN Ot R06.02 SHORTNESS OF BREATH 03/17/2017 AMBROSIO KUMAR DO M Ot J43.9 EMPHYSEMA, UNSPECIFIED 03/17/2017 JOSÉ DOAMBROSIO M Ot R06.02 SHORTNESS OF BREATH 03/17/2017 RAJAT GRIGSBY APRN Ot J43.9 EMPHYSEMA, UNSPECIFIED 03/17/2017 KARON MORGAN Ot E78.2 MIXED HYPERLIPIDEMIA 03/17/2017 KARON MORGAN Ot I10 ESSENTIAL (PRIMARY) HYPERTENSION 03/17/2017 RAJAT GRIGSBY APRN Ot I10 ESSENTIAL (PRIMARY) HYPERTENSION 03/18/2017 KADEN SCHAFFER Ot D64.9 ANEMIA, UNSPECIFIED 03/18/2017 KADEN SCHAFFER Ot E03.9 HYPOTHYROIDISM, UNSPECIFIED 03/18/2017 KADEN SCHAFFER Ot E78.00 PURE HYPERCHOLESTEROLEMIA, UNSPECIFIED 03/18/2017 KADEN SCHAFFER Ot E78.5 HYPERLIPIDEMIA, UNSPECIFIED 03/18/2017 KADEN SCHAFFER Ot I11.0 HYPERTENSIVE HEART DISEASE WITH HEART FA 03/18/2017 KADEN SCHAFFER Ot I25.10 ATHSCL HEART DISEASE OF [place] CORONARY 03/18/2017 KADEN SCHAFFER Ot I48.2 CHRONIC ATRIAL FIBRILLATION 03/18/2017 KADEN SCHAFFER Ot I50.30 UNSPECIFIED DIASTOLIC (CONGESTIVE) HEART 03/18/2017 KADEN SCHAFFER Ot 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 03/18/2017 KADEN SCHAFFER Ot I73.9 PERIPHERAL VASCULAR DISEASE, UNSPECIFIED 03/18/2017 KADEN SCHAFFER Ot J44.9 CHRONIC OBSTRUCTIVE PULMONARY DISEASE, U 03/18/2017 KADEN SCHAFFER Ot K21.9 GASTRO-ESOPHAGEAL REFLUX DISEASE WITHOUT 03/18/2017 KADEN SCHAFFER Ot Z79.01 FINANCIAL BUSINESS ANALYST (CURRENT) USE OF ANTICOAGULANT 03/18/2017 KADEN SCHAFFER Ot Z79.02 DETENTION (CURRENT) USE OF ANTITHROMBOTI 03/18/2017 KADEN SCHAFFER Ot Z87.891 PERSONAL HISTORY OF NICOTINE DEPENDENCE 03/18/2017 KADEN SCHAFFER Ot Z95.828 PRESENCE OF OTHER VASCULAR IMPLANTS AND 03/18/2017 KADEN SCHAFFER Ot Z99.81 DEPENDENCE ON SUPPLEMENTAL OXYGEN 04/13/2017 KADEN SCHAFFER Ot D64.9 ANEMIA, UNSPECIFIED 04/13/2017 KADEN SCHAFFER Ot E03.9 HYPOTHYROIDISM, UNSPECIFIED 04/13/2017 KADEN SCHAFFER Ot E78.00 PURE HYPERCHOLESTEROLEMIA, UNSPECIFIED 04/13/2017 KADEN SCHAFFER Ot E78.5 HYPERLIPIDEMIA, UNSPECIFIED 04/13/2017 KADEN SCHAFFER Ot I11.0 HYPERTENSIVE HEART DISEASE WITH HEART FA 04/13/2017 KADEN SCHAFFER Ot I25.10 ATHSCL HEART DISEASE OF [place] CORONARY 04/13/2017 KADEN SCHAFFER Ot I48.2 CHRONIC ATRIAL FIBRILLATION 04/13/2017 KADEN SCHAFFER Ot I50.30 UNSPECIFIED DIASTOLIC (CONGESTIVE) HEART 04/13/2017 KADEN SCHAFFER Ot 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 04/13/2017 KADEN SCHAFFER Ot I73.9 PERIPHERAL VASCULAR DISEASE, UNSPECIFIED 04/13/2017 KADEN SCHAFFER Ot J44.9 CHRONIC OBSTRUCTIVE PULMONARY DISEASE, U 04/13/2017 KADEN SCHAFFER Ot K21.9 GASTRO-ESOPHAGEAL REFLUX DISEASE WITHOUT 04/13/2017 KADEN SCHAFFER Ot Z79.01 FINANCIAL BUSINESS ANALYST (CURRENT) USE OF ANTICOAGULANT 04/13/2017 KADEN SCHAFFER Ot Z79.02 FINANCIAL BUSINESS ANALYST (CURRENT) USE OF ANTITHROMBOTI 04/13/2017 KADEN SCHAFFER Ot Z87.891 PERSONAL HISTORY OF NICOTINE DEPENDENCE 04/13/2017 KADEN SCHAFFER Ot Z95.828 PRESENCE OF OTHER VASCULAR IMPLANTS AND 04/13/2017 KADEN SCHAFFER Ot Z99.81 DEPENDENCE ON SUPPLEMENTAL OXYGEN 05/02/2017 KADEN SCHAFFER Ot D64.9 ANEMIA, UNSPECIFIED 05/02/2017 KADEN SCHAFFER Ot E03.9 HYPOTHYROIDISM, UNSPECIFIED 05/02/2017 SARBJITKADEN Ot E78.00 PURE HYPERCHOLESTEROLEMIA, UNSPECIFIED 05/02/2017 KADEN SCHAFFER Ot E78.5 HYPERLIPIDEMIA, UNSPECIFIED 05/02/2017 KADEN SCHAFFER Ot I11.0 HYPERTENSIVE HEART DISEASE WITH HEART FA 05/02/2017 KADEN SCHAFFER Ot I25.10 ATHSCL HEART DISEASE OF [place] CORONARY 05/02/2017 KADEN SCHAFFER Ot I48.2 CHRONIC ATRIAL FIBRILLATION 05/02/2017 KADEN SCHAFFER Ot I50.30 UNSPECIFIED DIASTOLIC (CONGESTIVE) HEART 05/02/2017 KADEN SCHAFFER Ot 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 05/02/2017 KADEN SCHAFFER Ot I73.9 PERIPHERAL VASCULAR DISEASE, UNSPECIFIED 05/02/2017 KADEN SCHAFFER Ot J44.9 CHRONIC OBSTRUCTIVE PULMONARY DISEASE, U 05/02/2017 KADEN SCHAFFER Ot K21.9 GASTRO-ESOPHAGEAL REFLUX DISEASE WITHOUT 05/02/2017 KADEN SCHAFFER Ot Z79.01 DETENTION (CURRENT) USE OF ANTICOAGULANT 05/02/2017 KADEN SCHAFFER Ot Z79.02 FINANCIAL BUSINESS ANALYST (CURRENT) USE OF ANTITHROMBOTI 05/02/2017 KADEN SCHAFFER Ot Z87.891 PERSONAL HISTORY OF NICOTINE DEPENDENCE 05/02/2017 KADEN SCHAFFER Ot Z95.828 PRESENCE OF OTHER VASCULAR IMPLANTS AND 05/02/2017 KADEN SCHAFFER N Ot Z99.81 DEPENDENCE ON SUPPLEMENTAL OXYGEN 05/08/2017 KADEN SCHAFFER Ot D64.9 ANEMIA, UNSPECIFIED 05/08/2017 KADEN SCHAFFER Ot E03.9 HYPOTHYROIDISM, UNSPECIFIED 05/08/2017 KADEN SCHAFEFR Ot E78.00 PURE HYPERCHOLESTEROLEMIA, UNSPECIFIED 05/08/2017 KADEN SCHAFFER Ot E78.5 HYPERLIPIDEMIA, UNSPECIFIED 05/08/2017 KADEN SCHAFFER Ot I11.0 HYPERTENSIVE HEART DISEASE WITH HEART FA 05/08/2017 KADEN SCHAFFER Ot I25.10 ATHSCL HEART DISEASE OF [place] CORONARY 05/08/2017 KADEN SCHAFFER Ot I48.2 CHRONIC ATRIAL FIBRILLATION 05/08/2017 KADEN SCHAFFER Ot I50.30 UNSPECIFIED DIASTOLIC (CONGESTIVE) HEART 05/08/2017 KADEN SCHAFFER Ot 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 05/08/2017 KADEN SCHAFFER Ot I73.9 PERIPHERAL VASCULAR DISEASE, UNSPECIFIED 05/08/2017 KADEN SCHAFFER Ot J44.9 CHRONIC OBSTRUCTIVE PULMONARY DISEASE, U 05/08/2017 KADEN SCHAFFER Ot K21.9 GASTRO-ESOPHAGEAL REFLUX DISEASE WITHOUT 05/08/2017 KADEN SCHAFFER Ot Z79.01 FINANCIAL BUSINESS ANALYST (CURRENT) USE OF ANTICOAGULANT 05/08/2017 KADEN SCHAFFER Ot Z79.02 FINANCIAL BUSINESS ANALYST (CURRENT) USE OF ANTITHROMBOTI 05/08/2017 KADEN SCHAFFER Ot Z87.891 PERSONAL HISTORY OF NICOTINE DEPENDENCE 05/08/2017 KADEN SCHAFFER Ot Z95.828 PRESENCE OF OTHER VASCULAR IMPLANTS AND 05/08/2017 KADEN SCHAFFER Ot Z99.81 DEPENDENCE ON SUPPLEMENTAL OXYGEN 05/25/2017 ANJU STANFORD MD Ot E78.2 MIXED HYPERLIPIDEMIA 05/25/2017 ANJU STANFORD MD Ot I10 ESSENTIAL (PRIMARY) HYPERTENSION 05/25/2017 ANJU STANFORD MD Ot I48.0 PAROXYSMAL ATRIAL FIBRILLATION 05/25/2017 ANJU STANFORD MD Ot I50.32 CHRONIC DIASTOLIC (CONGESTIVE) HEART ROB 05/25/2017 ANJU STANFORD MD Ot I65.23 OCCLUSION AND STENOSIS OF BILATERAL [place] 05/29/2017 RAJAT GRIGSBY APRN Ot I27.20 PULMONARY HYPERTENSION, UNSPECIFIED 05/29/2017 RAJAT GRIGSBY APRN Ot I50.32 CHRONIC DIASTOLIC (CONGESTIVE) HEART ROB 05/29/2017 RAJAT GRIGSBY APRN Ot J43.9 EMPHYSEMA, UNSPECIFIED 05/29/2017 RAJAT GRIGSBY APRN Ot R09.02 HYPOXEMIA 06/03/2017 Anju Stanford 250.00 DIABETES MELLITUS WITHOUT MENTION OF COMPLICATION, TYPE II OR UNSPECIFIED TYPE, NOT STATED UNCONTROLLED 06/03/2017 Anju Stanford E11.9 TYPE 2 DIABETES MELLITUS WITHOUT COMPLICATIONS 06/03/2017 Anju Stanford 250.00 DIABETES MELLITUS WITHOUT MENTION OF COMPLICATION, TYPE II OR UNSPECIFIED TYPE, NOT STATED UNCONTROLLED 06/03/2017 Anju Stanford W E11.9 TYPE 2 DIABETES MELLITUS WITHOUT COMPLICATIONS 06/05/2017 LOUISE SPARROW MD Ot E78.2 MIXED HYPERLIPIDEMIA 06/05/2017 LOUISE SPARROW MD Ot I11.0 HYPERTENSIVE HEART DISEASE WITH HEART FA 06/05/2017 LOUISE SPARROW MD Ot I48.0 PAROXYSMAL ATRIAL FIBRILLATION 06/05/2017 LOUISE SPARROW MD Ot I50.32 CHRONIC DIASTOLIC (CONGESTIVE) HEART ROB 06/05/2017 LOUISE SPARROW MD Ot I65.23 OCCLUSION AND STENOSIS OF BILATERAL [place] 06/24/2017 KADEN SCHAFFER Ot D64.9 ANEMIA, UNSPECIFIED 06/24/2017 KADEN SCHAFFER Ot E03.9 HYPOTHYROIDISM, UNSPECIFIED 06/24/2017 KADEN SCHAFFER Ot E78.00 PURE HYPERCHOLESTEROLEMIA, UNSPECIFIED 06/24/2017 KADEN SCHAFFER Ot E78.5 HYPERLIPIDEMIA, UNSPECIFIED 06/24/2017 KADEN SCHAFFER Ot I11.0 HYPERTENSIVE HEART DISEASE WITH HEART FA 06/24/2017 KADEN SCHAFFER Ot I25.10 ATHSCL HEART DISEASE OF [place] CORONARY 06/24/2017 KADEN SCHAFFER Ot I48.2 CHRONIC ATRIAL FIBRILLATION 06/24/2017 KADEN SCHAFFER Ot I50.30 UNSPECIFIED DIASTOLIC (CONGESTIVE) HEART 06/24/2017 KADEN SCHAFFER Ot 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 06/24/2017 KADEN SCHAFFER Ot I73.9 PERIPHERAL VASCULAR DISEASE, UNSPECIFIED 06/24/2017 KADEN SCHAFFER Ot J44.9 CHRONIC OBSTRUCTIVE PULMONARY DISEASE, U 06/24/2017 KADEN SCHAFFER Ot K21.9 GASTRO-ESOPHAGEAL REFLUX DISEASE WITHOUT 06/24/2017 KADEN SCHAFFER Ot Z79.01 DETENTION (CURRENT) USE OF ANTICOAGULANT 06/24/2017 KADEN SCHAFFER Ot Z79.02 FINANCIAL BUSINESS ANALYST (CURRENT) USE OF ANTITHROMBOTI 06/24/2017 KADEN SCHAFFER Ot Z87.891 PERSONAL HISTORY OF NICOTINE DEPENDENCE 06/24/2017 KADEN SCHAFFER Ot Z95.828 PRESENCE OF OTHER VASCULAR IMPLANTS AND 06/24/2017 KADEN SCHAFFER Ot Z99.81 DEPENDENCE ON SUPPLEMENTAL OXYGEN 07/14/2017 KADEN SCHAFFER Ot D64.9 ANEMIA, UNSPECIFIED 07/14/2017 KADEN SCHAFFER Ot E03.9 HYPOTHYROIDISM, UNSPECIFIED 07/14/2017 SARBJITKAEDN LEHMAN Ot E78.00 PURE HYPERCHOLESTEROLEMIA, UNSPECIFIED 07/14/2017 SARBJITKADEN Ot E78.5 HYPERLIPIDEMIA, UNSPECIFIED 07/14/2017 SARBJITKADEN LEHMAN Ot I11.0 HYPERTENSIVE HEART DISEASE WITH HEART FA 07/14/2017 KADEN SCHAFFER Ot I25.10 ATHSCL HEART DISEASE OF [place] CORONARY 07/14/2017 KADEN SCHAFFER Ot I48.2 CHRONIC ATRIAL FIBRILLATION 07/14/2017 KADEN SCHAFFER Ot I50.30 UNSPECIFIED DIASTOLIC (CONGESTIVE) HEART 07/14/2017 KADEN SCHAFFER Ot 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 07/14/2017 KADEN SCHAFFER Ot I73.9 PERIPHERAL VASCULAR DISEASE, UNSPECIFIED 07/14/2017 KADEN SCHAFFER Ot J44.9 CHRONIC OBSTRUCTIVE PULMONARY DISEASE, U 07/14/2017 KADEN SCHAFFER Ot K21.9 GASTRO-ESOPHAGEAL REFLUX DISEASE WITHOUT 07/14/2017 KADEN SCHAFFER Ot Z79.01 DETENTION (CURRENT) USE OF ANTICOAGULANT 07/14/2017 KADEN SCHAFFER Ot Z79.02 FINANCIAL BUSINESS ANALYST (CURRENT) USE OF ANTITHROMBOTI 07/14/2017 KADEN SCHAFFER Ot Z87.891 PERSONAL HISTORY OF NICOTINE DEPENDENCE 07/14/2017 KADEN SCHAFFER Ot Z95.828 PRESENCE OF OTHER VASCULAR IMPLANTS AND 07/14/2017 KADEN SCHAFFER Ot Z99.81 DEPENDENCE ON SUPPLEMENTAL OXYGEN 08/31/2017 RAJAT GRIGSBY APRN Ot J43.9 EMPHYSEMA, UNSPECIFIED 09/21/2017 KADEN SCHAFFER Ot D64.9 ANEMIA, UNSPECIFIED 09/21/2017 KADEN SCHAFFER Ot E03.9 HYPOTHYROIDISM, UNSPECIFIED 09/21/2017 KADEN SCHAFFER Ot E78.00 PURE HYPERCHOLESTEROLEMIA, UNSPECIFIED 09/21/2017 SARBJITKADEN LEHMAN Ot E78.5 HYPERLIPIDEMIA, UNSPECIFIED 09/21/2017 KADEN SCHAFFER Ot I11.0 HYPERTENSIVE HEART DISEASE WITH HEART FA 09/21/2017 KADEN SCHAFFER Ot I25.10 ATHSCL HEART DISEASE OF [place] CORONARY 09/21/2017 KADEN SCHAFFER Ot I48.2 CHRONIC ATRIAL FIBRILLATION 09/21/2017 KADEN SCHAFFER Ot I50.30 UNSPECIFIED DIASTOLIC (CONGESTIVE) HEART 09/21/2017 KADEN SCHAFFER Ot 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 09/21/2017 KADEN SCHAFFER Ot I73.9 PERIPHERAL VASCULAR DISEASE, UNSPECIFIED 09/21/2017 KADEN SCHAFFER Ot J44.9 CHRONIC OBSTRUCTIVE PULMONARY DISEASE, U 09/21/2017 KADEN SCHAFFER Ot K21.9 GASTRO-ESOPHAGEAL REFLUX DISEASE WITHOUT 09/21/2017 KADEN SCHAFFER Ot Z79.01 FINANCIAL BUSINESS ANALYST (CURRENT) USE OF ANTICOAGULANT 09/21/2017 KADEN SCHAFFER Ot Z79.02 FINANCIAL BUSINESS ANALYST (CURRENT) USE OF ANTITHROMBOTI 09/21/2017 KADEN SCHAFFER Ot Z87.891 PERSONAL HISTORY OF NICOTINE DEPENDENCE 09/21/2017 KADEN SCHAFFER Ot Z95.828 PRESENCE OF OTHER VASCULAR IMPLANTS AND 09/21/2017 KADEN SCHAFFER Ot Z99.81 DEPENDENCE ON SUPPLEMENTAL OXYGEN 10/06/2017 KADEN SCHAFFER Ot D64.9 ANEMIA, UNSPECIFIED 10/06/2017 KADEN SCHAFFER Ot E03.9 HYPOTHYROIDISM, UNSPECIFIED 10/06/2017 KADEN SCHAFFER Ot E78.00 PURE HYPERCHOLESTEROLEMIA, UNSPECIFIED 10/06/2017 KADEN SCHAFFER Ot E78.5 HYPERLIPIDEMIA, UNSPECIFIED 10/06/2017 KADEN SCHAFFER Ot I11.0 HYPERTENSIVE HEART DISEASE WITH HEART FA 10/06/2017 KADEN SCHAFFER Ot I25.10 ATHSCL HEART DISEASE OF [place] CORONARY 10/06/2017 KADEN SCHAFFER Ot I48.2 CHRONIC ATRIAL FIBRILLATION 10/06/2017 KADEN SCHAFFER Ot I50.30 UNSPECIFIED DIASTOLIC (CONGESTIVE) HEART 10/06/2017 KADEN SCHAFFER Ot 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 10/06/2017 KADEN SCHAFFER Ot I73.9 PERIPHERAL VASCULAR DISEASE, UNSPECIFIED 10/06/2017 KADEN SCHAFFER Ot J44.9 CHRONIC OBSTRUCTIVE PULMONARY DISEASE, U 10/06/2017 KADEN SCHAFFER Ot K21.9 GASTRO-ESOPHAGEAL REFLUX DISEASE WITHOUT 10/06/2017 KADEN SCHAFFER Ot Z79.01 FINANCIAL BUSINESS ANALYST (CURRENT) USE OF ANTICOAGULANT 10/06/2017 KADNE SCHAFFER Ot Z79.02 DETENTION (CURRENT) USE OF ANTITHROMBOTI 10/06/2017 KADEN SCHAFFER Ot Z87.891 PERSONAL HISTORY OF NICOTINE DEPENDENCE 10/06/2017 KADEN SCHAFFER Ot Z95.828 PRESENCE OF OTHER VASCULAR IMPLANTS AND 10/06/2017 KADEN SCHAFFER Ot Z99.81 DEPENDENCE ON SUPPLEMENTAL OXYGEN 10/13/2017 KADEN SCHAFFER Ot D64.9 ANEMIA, UNSPECIFIED 10/13/2017 KADEN SCHAFFER Ot E03.9 HYPOTHYROIDISM, UNSPECIFIED 10/13/2017 KADEN SCHAFFER Ot E78.00 PURE HYPERCHOLESTEROLEMIA, UNSPECIFIED 10/13/2017 KADEN SCHAFFER Ot E78.5 HYPERLIPIDEMIA, UNSPECIFIED 10/13/2017 KADEN SCHAFFER Ot I11.0 HYPERTENSIVE HEART DISEASE WITH HEART FA 10/13/2017 KADEN SCHAFFER Ot I25.10 ATHSCL HEART DISEASE OF [place] CORONARY 10/13/2017 KADEN SCHAFFER Ot I48.2 CHRONIC ATRIAL FIBRILLATION 10/13/2017 KADEN SCHAFFER Ot I50.30 UNSPECIFIED DIASTOLIC (CONGESTIVE) HEART 10/13/2017 KADEN SCHAFFER Ot 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 10/13/2017 KADEN SCHAFFER Ot I73.9 PERIPHERAL VASCULAR DISEASE, UNSPECIFIED 10/13/2017 KADEN SCHAFFER Ot J44.9 CHRONIC OBSTRUCTIVE PULMONARY DISEASE, U 10/13/2017 KADEN SCHAFFER Ot K21.9 GASTRO-ESOPHAGEAL REFLUX DISEASE WITHOUT 10/13/2017 KADEN SCHAFFER Ot Z79.01 FINANCIAL BUSINESS ANALYST (CURRENT) USE OF ANTICOAGULANT 10/13/2017 KADEN SCHAFFER Ot Z79.02 FINANCIAL BUSINESS ANALYST (CURRENT) USE OF ANTITHROMBOTI 10/13/2017 KADEN SCHAFFER Ot Z87.891 PERSONAL HISTORY OF NICOTINE DEPENDENCE 10/13/2017 KADEN SCHAFFER Ot Z95.828 PRESENCE OF OTHER VASCULAR IMPLANTS AND 10/13/2017 KADEN SCHAFFER N Ot Z99.81 DEPENDENCE ON SUPPLEMENTAL OXYGEN 11/27/2017 RAJAT GRIGSBY APRN Ot J43.9 EMPHYSEMA, UNSPECIFIED 12/07/2017 RAJAT GRIGSBY 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 Ot J43.9 EMPHYSEMA, UNSPECIFIED 12/21/2017 KADEN SCHAFFER Ot D64.9 ANEMIA, UNSPECIFIED 12/21/2017 KADEN SCHAFFER Ot E03.9 HYPOTHYROIDISM, UNSPECIFIED 12/21/2017 KADEN SCHAFFER N Ot E78.00 PURE HYPERCHOLESTEROLEMIA, UNSPECIFIED 12/21/2017 KADEN SCHAFFER N Ot E78.5 HYPERLIPIDEMIA, UNSPECIFIED 12/21/2017 KADEN SCHAFFER N Ot I11.0 HYPERTENSIVE HEART DISEASE WITH HEART FA 12/21/2017 KADEN SCHAFFER Ot I25.10 ATHSCL HEART DISEASE OF [place] CORONARY 12/21/2017 KADEN SCHAFFER Ot I48.2 CHRONIC ATRIAL FIBRILLATION 12/21/2017 KADEN SCHAFFER Ot I50.30 UNSPECIFIED DIASTOLIC (CONGESTIVE) HEART 12/21/2017 KADEN SCHAFFER N Ot 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 12/21/2017 KADEN SCHAFFER N Ot I73.9 PERIPHERAL VASCULAR DISEASE, UNSPECIFIED 12/21/2017 KADEN SCHAFFER N Ot J44.9 CHRONIC OBSTRUCTIVE PULMONARY DISEASE, U 12/21/2017 KADEN SCHAFFER Ot K21.9 GASTRO-ESOPHAGEAL REFLUX DISEASE WITHOUT 12/21/2017 KADEN SCHAFFER Ot Z79.01 DETENTION (CURRENT) USE OF ANTICOAGULANT 12/21/2017 KADEN SCHAFFER N Ot Z79.02 FINANCIAL BUSINESS ANALYST (CURRENT) USE OF ANTITHROMBOTI 12/21/2017 KADEN SCHAFFER N Ot Z87.891 PERSONAL HISTORY OF NICOTINE DEPENDENCE 12/21/2017 KADEN SCHAFFER Ot Z95.828 PRESENCE OF OTHER VASCULAR IMPLANTS AND 12/21/2017 KADEN SCHAFFER N Ot Z99.81 DEPENDENCE ON SUPPLEMENTAL OXYGEN 12/22/2017 KADEN SCHAFFER Ot D64.9 ANEMIA, UNSPECIFIED 12/22/2017 KADEN SCHAFFER Ot E03.9 HYPOTHYROIDISM, UNSPECIFIED 12/22/2017 KADEN SCHAFFER N Ot E78.00 PURE HYPERCHOLESTEROLEMIA, UNSPECIFIED 12/22/2017 KADEN SCHAFFER Ot E78.5 HYPERLIPIDEMIA, UNSPECIFIED 12/22/2017 KADEN SCHAFFER Ot I11.0 HYPERTENSIVE HEART DISEASE WITH HEART FA 12/22/2017 KADEN SCHAFFER Ot I25.10 ATHSCL HEART DISEASE OF [place] CORONARY 12/22/2017 KADEN SCHAFFER Ot I48.2 CHRONIC ATRIAL FIBRILLATION 12/22/2017 KADEN SCHAFFER Ot I50.30 UNSPECIFIED DIASTOLIC (CONGESTIVE) HEART 12/22/2017 KADEN SCHAFFER Ot 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 12/22/2017 KADEN SCHAFFER Ot I73.9 PERIPHERAL VASCULAR DISEASE, UNSPECIFIED 12/22/2017 KADEN SCHAFFER Ot J44.9 CHRONIC OBSTRUCTIVE PULMONARY DISEASE, U 12/22/2017 KADEN SCHAFFER Ot K21.9 GASTRO-ESOPHAGEAL REFLUX DISEASE WITHOUT 12/22/2017 KADEN SCHAFFER Ot Z79.01 FINANCIAL BUSINESS ANALYST (CURRENT) USE OF ANTICOAGULANT 12/22/2017 KADEN SCHAFFER Ot Z79.02 FINANCIAL BUSINESS ANALYST (CURRENT) USE OF ANTITHROMBOTI 12/22/2017 KADEN SCHAFFER Ot Z87.891 PERSONAL HISTORY OF NICOTINE DEPENDENCE 12/22/2017 KADEN SCHAFFER Ot Z95.828 PRESENCE OF OTHER VASCULAR IMPLANTS AND 12/22/2017 KADEN SCHAFFER Ot Z99.81 DEPENDENCE ON SUPPLEMENTAL OXYGEN 12/22/2017 KADEN SCHAFFER Ot D64.9 ANEMIA, UNSPECIFIED 12/22/2017 KADEN SCHAFFER Ot E03.9 HYPOTHYROIDISM, UNSPECIFIED 12/22/2017 KADEN SCHAFFER Ot E78.00 PURE HYPERCHOLESTEROLEMIA, UNSPECIFIED 12/22/2017 KADEN SCHAFFER Ot E78.5 HYPERLIPIDEMIA, UNSPECIFIED 12/22/2017 KADEN SCHAFFER Ot I11.0 HYPERTENSIVE HEART DISEASE WITH HEART FA 12/22/2017 KADEN SCHAFFER Ot I25.10 ATHSCL HEART DISEASE OF [place] CORONARY 12/22/2017 KADEN SCHAFFER Ot I48.2 CHRONIC ATRIAL FIBRILLATION 12/22/2017 KADEN SCHAFFER Ot I50.30 UNSPECIFIED DIASTOLIC (CONGESTIVE) HEART 12/22/2017 KADEN SCHAFFER Ot 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 12/22/2017 KADEN SCHAFFER Ot I73.9 PERIPHERAL VASCULAR DISEASE, UNSPECIFIED 12/22/2017 KADEN SCHAFFER Ot J44.9 CHRONIC OBSTRUCTIVE PULMONARY DISEASE, U 12/22/2017 KADEN SCHAFFER Ot K21.9 GASTRO-ESOPHAGEAL REFLUX DISEASE WITHOUT 12/22/2017 KADEN SCHAFFER Ot Z79.01 FINANCIAL BUSINESS ANALYST (CURRENT) USE OF ANTICOAGULANT 12/22/2017 KADEN SCHAFFER Ot Z79.02 FINANCIAL BUSINESS ANALYST (CURRENT) USE OF ANTITHROMBOTI 12/22/2017 KADEN SCHAFFER Ot Z87.891 PERSONAL HISTORY OF NICOTINE DEPENDENCE 12/22/2017 KADEN SCHAFFER Ot Z95.828 PRESENCE OF OTHER VASCULAR IMPLANTS AND 12/22/2017 KADEN SCHAFFER Ot Z99.81 DEPENDENCE ON SUPPLEMENTAL OXYGEN 01/06/2018 ANDREWS SZYMANSKI, LOUISE Snyder Ot E78.5 HYPERLIPIDEMIA, UNSPECIFIED 01/06/2018 ANDREWS SZYMANSKI, LOUISE Snyder Ot I10 ESSENTIAL (PRIMARY) HYPERTENSION 01/06/2018 ANDREWS SZYMANSKI, LOUISE Snyder Ot I48.0 PAROXYSMAL ATRIAL FIBRILLATION 01/13/2018 KADEN SCHAFFER Ot D64.9 ANEMIA, UNSPECIFIED 01/13/2018 KADEN SCHAFFER Ot E03.9 HYPOTHYROIDISM, UNSPECIFIED 01/13/2018 KADEN SCHAFFER Ot E78.00 PURE HYPERCHOLESTEROLEMIA, UNSPECIFIED 01/13/2018 KADEN SCHAFFER Ot E78.5 HYPERLIPIDEMIA, UNSPECIFIED 01/13/2018 KADEN SCHAFFER Ot I11.0 HYPERTENSIVE HEART DISEASE WITH HEART FA 01/13/2018 KADEN SCHAFFER Ot I25.10 ATHSCL HEART DISEASE OF [place] CORONARY 01/13/2018 KADEN SCHAFFER Ot I48.2 CHRONIC ATRIAL FIBRILLATION 01/13/2018 KADEN SCHAFFER Ot I50.30 UNSPECIFIED DIASTOLIC (CONGESTIVE) HEART 01/13/2018 KADEN SCHAFFER Ot 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 01/13/2018 KADEN SCHAFFER Ot I73.9 PERIPHERAL VASCULAR DISEASE, UNSPECIFIED 01/13/2018 SARBJIT, BOBAN N Ot J44.9 CHRONIC OBSTRUCTIVE PULMONARY DISEASE, U 01/13/2018 KADEN SCHAFFER Ot K21.9 GASTRO-ESOPHAGEAL REFLUX DISEASE WITHOUT 01/13/2018 KADEN SCHAFFER Ot Z79.01 DETENTION (CURRENT) USE OF ANTICOAGULANT 01/13/2018 KADEN SCHAFFER Ot Z79.02 DETENTION (CURRENT) USE OF ANTITHROMBOTI 01/13/2018 KADEN SCHAFFER Ot Z87.891 PERSONAL HISTORY OF NICOTINE DEPENDENCE 01/13/2018 KADEN SCHAFFER Ot Z95.828 PRESENCE OF OTHER VASCULAR IMPLANTS AND 01/13/2018 KADEN SCHAFFER Ot Z99.81 DEPENDENCE ON SUPPLEMENTAL OXYGEN 01/15/2018 ANDREWS SZYMANSKI, LOUISE Snyder Ot E78.5 HYPERLIPIDEMIA, UNSPECIFIED 01/15/2018 LOUISE SPARROW MD Ot I10 ESSENTIAL (PRIMARY) HYPERTENSION 01/15/2018 LOUISE SPARROW MD Ot I48.0 PAROXYSMAL ATRIAL FIBRILLATION 01/19/2018 KADEN SCHAFFER Ot D64.9 ANEMIA, UNSPECIFIED 01/19/2018 KADEN SCHAFFER Ot E03.9 HYPOTHYROIDISM, UNSPECIFIED 01/19/2018 KADEN SCHAFFER Ot E78.00 PURE HYPERCHOLESTEROLEMIA, UNSPECIFIED 01/19/2018 KADEN SCHAFFER Ot E78.5 HYPERLIPIDEMIA, UNSPECIFIED 01/19/2018 KADEN SCHAFFER Ot I11.0 HYPERTENSIVE HEART DISEASE WITH HEART FA 01/19/2018 KADEN SCHAFFER Ot I25.10 ATHSCL HEART DISEASE OF [place] CORONARY 01/19/2018 KADEN SCHAFFER Ot I48.2 CHRONIC ATRIAL FIBRILLATION 01/19/2018 KADEN SCHAFFER Ot I50.30 UNSPECIFIED DIASTOLIC (CONGESTIVE) HEART 01/19/2018 KADEN SCHAFFER N Ot 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 01/19/2018 KADEN SCHAFFER N Ot I73.9 PERIPHERAL VASCULAR DISEASE, UNSPECIFIED 01/19/2018 KADEN SCHAFFER Ot J44.9 CHRONIC OBSTRUCTIVE PULMONARY DISEASE, U 01/19/2018 KADEN SCHAFFER Ot K21.9 GASTRO-ESOPHAGEAL REFLUX DISEASE WITHOUT 01/19/2018 KADEN SCHAFFER Ot Z79.01 FINANCIAL BUSINESS ANALYST (CURRENT) USE OF ANTICOAGULANT 01/19/2018 KADEN SCHAFFER Ot Z79.02 FINANCIAL BUSINESS ANALYST (CURRENT) USE OF ANTITHROMBOTI 01/19/2018 KADEN SCHAFFER Ot Z87.891 PERSONAL HISTORY OF NICOTINE DEPENDENCE 01/19/2018 KADEN SCHAFFER Ot Z95.828 PRESENCE OF OTHER VASCULAR IMPLANTS AND 01/19/2018 KADEN SCHAFFER Ot Z99.81 DEPENDENCE ON SUPPLEMENTAL OXYGEN 06/02/2018 LOUISE SPARROW MD Ot E78.5 HYPERLIPIDEMIA, UNSPECIFIED 06/02/2018 LOUISE SPARROW MD Ot I10 ESSENTIAL (PRIMARY) HYPERTENSION 06/15/2018 LOUISE SPARROW MD, Ot E78.5 HYPERLIPIDEMIA, UNSPECIFIED 06/15/2018 LOUISE SPARROW MD Ot I10 ESSENTIAL (PRIMARY) HYPERTENSION 06/29/2018 KARON MORGAN Ot E78.5 HYPERLIPIDEMIA, UNSPECIFIED 06/29/2018 KARON MORGAN Ot I08.1 RHEUMATIC DISORDERS OF BOTH [place] AND T 06/29/2018 KARON MORGAN Ot I11.0 HYPERTENSIVE HEART DISEASE WITH HEART FA 06/29/2018 KARON MORGAN Ot I50.32 CHRONIC DIASTOLIC (CONGESTIVE) HEART ROB 06/29/2018 KARON MORGAN Ot I65.29 OCCLUSION AND STENOSIS OF UNSPECIFIED CA 07/14/2018 KADEN SCHAFFER Ot D64.9 ANEMIA, UNSPECIFIED 07/14/2018 KADEN SCHAFFER Ot E03.9 HYPOTHYROIDISM, UNSPECIFIED 07/14/2018 KADEN SCHAFFER Ot E78.00 PURE HYPERCHOLESTEROLEMIA, UNSPECIFIED 07/14/2018 KADEN SCHAFFER Ot E78.5 HYPERLIPIDEMIA, UNSPECIFIED 07/14/2018 KADEN SCHAFFER Ot I11.0 HYPERTENSIVE HEART DISEASE WITH HEART FA 07/14/2018 KADEN SCHAFFER Ot I25.10 ATHSCL HEART DISEASE OF [place] CORONARY 07/14/2018 KADEN SCHAFFER Ot I48.2 CHRONIC ATRIAL FIBRILLATION 07/14/2018 KADEN SCHAFFER Ot I50.30 UNSPECIFIED DIASTOLIC (CONGESTIVE) HEART 07/14/2018 KADEN SCHAFFER Ot 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 07/14/2018 KADEN SCHAFFER Ot I73.9 PERIPHERAL VASCULAR DISEASE, UNSPECIFIED 07/14/2018 KADEN SCHAFFER Ot J44.9 CHRONIC OBSTRUCTIVE PULMONARY DISEASE, U 07/14/2018 KADEN SCHAFFER Ot K21.9 GASTRO-ESOPHAGEAL REFLUX DISEASE WITHOUT 07/14/2018 KADEN SCHAFFER Ot Z79.01 FINANCIAL BUSINESS ANALYST (CURRENT) USE OF ANTICOAGULANT 07/14/2018 KADEN SCHAFFER Ot Z79.02 FINANCIAL BUSINESS ANALYST (CURRENT) USE OF ANTITHROMBOTI 07/14/2018 KADEN SCHAFFER Ot Z87.891 PERSONAL HISTORY OF NICOTINE DEPENDENCE 07/14/2018 KADEN SCHAFFER Ot Z95.828 PRESENCE OF OTHER VASCULAR IMPLANTS AND 07/14/2018 KADEN SCHAFFER Ot Z99.81 DEPENDENCE ON SUPPLEMENTAL OXYGEN 09/20/2018 KADEN SCHAFFER Ot D64.9 ANEMIA, UNSPECIFIED 09/20/2018 KADEN SCHAFFER Ot E03.9 HYPOTHYROIDISM, UNSPECIFIED 09/20/2018 KADEN SCHAFFER Ot E78.00 PURE HYPERCHOLESTEROLEMIA, UNSPECIFIED 09/20/2018 KADEN SCHAFFER Ot E78.5 HYPERLIPIDEMIA, UNSPECIFIED 09/20/2018 KADEN SCHAFFER Ot I11.0 HYPERTENSIVE HEART DISEASE WITH HEART FA 09/20/2018 KADEN SCHAFFER Ot I25.10 ATHSCL HEART DISEASE OF [place] CORONARY 09/20/2018 KADEN SCHAFFER Ot I48.2 CHRONIC ATRIAL FIBRILLATION 09/20/2018 KADEN SCHAFFER Ot I50.30 UNSPECIFIED DIASTOLIC (CONGESTIVE) HEART 09/20/2018 KADEN SCHAFFER Ot 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 09/20/2018 KADEN SCHAFFER Ot I73.9 PERIPHERAL VASCULAR DISEASE, UNSPECIFIED 09/20/2018 KADEN SCHAFFER Ot J44.9 CHRONIC OBSTRUCTIVE PULMONARY DISEASE, U 09/20/2018 KADEN SCHAFFER Ot K21.9 GASTRO-ESOPHAGEAL REFLUX DISEASE WITHOUT 09/20/2018 KADEN SCHAFFER Ot Z79.01 DETENTION (CURRENT) USE OF ANTICOAGULANT 09/20/2018 KADEN SCHAFFER Ot Z79.02 FINANCIAL BUSINESS ANALYST (CURRENT) USE OF ANTITHROMBOTI 09/20/2018 KADEN SCHAFFER Ot Z87.891 PERSONAL HISTORY OF NICOTINE DEPENDENCE 09/20/2018 SARBJIT KADEN Mendiola Ot Z95.828 PRESENCE OF OTHER VASCULAR IMPLANTS AND 09/20/2018 SARBJITKADEN Ot Z99.81 DEPENDENCE ON SUPPLEMENTAL OXYGEN 09/21/2018 SARBJIT KADEN Mendiola Ot D64.9 ANEMIA, UNSPECIFIED 09/21/2018 SARBJITKADEN Ot E03.9 HYPOTHYROIDISM, UNSPECIFIED 09/21/2018 SARBJITKADEN Ot E78.00 PURE HYPERCHOLESTEROLEMIA, UNSPECIFIED 09/21/2018 SARBJITKADEN Ot E78.5 HYPERLIPIDEMIA, UNSPECIFIED 09/21/2018 SARBJITKADEN Ot I11.0 HYPERTENSIVE HEART DISEASE WITH HEART FA 09/21/2018 KADEN SCHAFFER Ot I25.10 ATHSCL HEART DISEASE OF [place] CORONARY 09/21/2018 SARBJITKADEN Ot I48.2 CHRONIC ATRIAL FIBRILLATION 09/21/2018 KADEN SCHAFFER Ot I50.30 UNSPECIFIED DIASTOLIC (CONGESTIVE) HEART 09/21/2018 KADEN SCHAFFER Ot 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 09/21/2018 KADEN SCHAFFER Ot I73.9 PERIPHERAL VASCULAR DISEASE, UNSPECIFIED 09/21/2018 KADEN SCHAFFER Ot J44.9 CHRONIC OBSTRUCTIVE PULMONARY DISEASE, U 09/21/2018 KADEN SCHAFFER Ot K21.9 GASTRO-ESOPHAGEAL REFLUX DISEASE WITHOUT 09/21/2018 KADEN SCHAFFER Ot Z79.01 FINANCIAL BUSINESS ANALYST (CURRENT) USE OF ANTICOAGULANT 09/21/2018 KADEN SCHAFFER Ot Z79.02 DETENTION (CURRENT) USE OF ANTITHROMBOTI 09/21/2018 KADEN SCHAFFER Ot Z87.891 PERSONAL HISTORY OF NICOTINE DEPENDENCE 09/21/2018 SARBJITKADEN Ot Z95.828 PRESENCE OF OTHER VASCULAR IMPLANTS AND 09/21/2018 KADEN SCHAFFER Ot Z99.81 DEPENDENCE ON SUPPLEMENTAL OXYGEN Procedures Code Description Performed By Performed On 37.22 LEFT HEART CARDIAC CATH 06/29/2012 88.53 LT HEART ANGIOCARDIOGRAM 06/29/2012 88.56 CORONAR ARTERIOGR-2 CATH 06/29/2012 [id number] EXCISION OF STOMACH, ENDO, DIAGN 01/15/2017 [id number] EXCISION OF STOMACH, PYLORUS, ENDO, DIAG 01/15/2017 Results Test Result Range Thyroid Stimulating Hormone - 07/18/16 14:46 TSH 2.93 mIU/mL 0.32-5.00 [id number] - 08/11/16 16:08 Serum or plasma urea nitrogen measurement (mass/volume) 16 mg/dL 7-18 Serum or plasma creatinine measurement (mass/volume) 0.87 mg/dL 0.60-1.30 Serum or plasma urea nitrogen/creatinine mass ratio 18 NRG Serum or plasma creatinine measurement with calculation of estimated glomerular filtration rate > NRG Automated blood complete blood count (hemogram) panel - 10/28/16 13:50 Blood leukocytes automated count (number/volume) 9.1 10*3/uL 4.3-11.0 Blood erythrocytes automated count (number/volume) 4.00 10*6/uL 4.35-5.85 Venous blood hemoglobin measurement (mass/volume) 10.4 g/dL 11.5-16.0 Blood hematocrit (volume fraction) 33 % 35-52 Automated erythrocyte mean corpuscular volume 82 [foz_us] 80-99 Automated erythrocyte mean corpuscular hemoglobin (mass per erythrocyte) 26 pg 25-34 Automated erythrocyte mean corpuscular hemoglobin concentration measurement (mass/volume) 32 g/dL 32-36 Automated erythrocyte distribution width ratio 22.1 % 10.0- 14.5 Automated blood platelet count (count/volume) 293 10*3/uL 130-400 Automated blood platelet mean volume measurement 10.7 [foz_us] 7.4-10.4 Comprehensive metabolic panel - 10/28/16 13:50 Serum or plasma sodium measurement (moles/volume) 140 mmol/L 135-145 Serum or plasma potassium measurement (moles/volume) 3.6 mmol/L 3.6-5.0 Serum or plasma chloride measurement (moles/volume) 102 mmol/L 98-107 Carbon dioxide 27 mmol/L 21-32 Serum or plasma anion gap determination (moles/volume) 11 mmol/L 5-14 Serum or plasma urea nitrogen measurement (mass/volume) 19 mg/dL 7-18 Serum or plasma creatinine measurement (mass/volume) 0.99 mg/dL 0.60-1.30 Serum or plasma urea nitrogen/creatinine mass ratio 19 NRG Serum or plasma creatinine measurement with calculation of estimated glomerular filtration rate 55 NRG Serum or plasma glucose measurement (mass/volume) 123 mg/dL 70-105 Serum or plasma calcium measurement (mass/volume) 9.1 mg/dL 8.5-10.1 Serum or plasma total bilirubin measurement (mass/volume) 0.4 mg/dL 0.1-1.0 Serum or plasma alkaline phosphatase measurement (enzymatic activity/volume) 103 U/L 40-136 Serum or plasma aspartate aminotransferase measurement (enzymatic activity/volume) 21 U/L 5-34 Serum or plasma alanine aminotransferase measurement (enzymatic activity/volume) 13 U/L 0-55 Serum or plasma protein measurement (mass/volume) 6.9 g/dL 6.4-8.2 Serum or plasma albumin measurement (mass/volume) 4.1 g/dL 3.2-4.5 Serum or plasma lithium measurement (moles/volume) - 10/28/16 13:50 BNP level 900.9 pg/mL <100.0 Comprehensive metabolic panel - 12/16/16 11:07 Serum or plasma sodium measurement (moles/volume) 142 mmol/L 135-145 Serum or plasma potassium measurement (moles/volume) 3.6 mmol/L 3.6-5.0 Serum or plasma chloride measurement (moles/volume) 99 mmol/L 98-107 Carbon dioxide 33 mmol/L 21-32 Serum or plasma anion gap determination (moles/volume) 10 mmol/L 5-14 Serum or plasma urea nitrogen measurement (mass/volume) 18 mg/dL 7-18 Serum or plasma creatinine measurement (mass/volume) 1.02 mg/dL 0.60-1.30 Serum or plasma urea nitrogen/creatinine mass ratio 18 NRG Serum or plasma creatinine measurement with calculation of estimated glomerular filtration rate 54 NRG Serum or plasma glucose measurement (mass/volume) 112 mg/dL 70-105 Serum or plasma calcium measurement (mass/volume) 9.3 mg/dL 8.5-10.1 Serum or plasma total bilirubin measurement (mass/volume) 0.7 mg/dL 0.1-1.0 Serum or plasma alkaline phosphatase measurement (enzymatic activity/volume) 100 U/L 40-136 Serum or plasma aspartate aminotransferase measurement (enzymatic activity/volume) 21 U/L 5-34 Serum or plasma alanine aminotransferase measurement (enzymatic activity/volume) 14 U/L 0-55 Serum or plasma protein measurement (mass/volume) 6.8 g/dL 6.4-8.2 Serum or plasma albumin measurement (mass/volume) 4.1 g/dL 3.2-4.5 Lipid 1996 panel - 12/16/16 11:07 Serum or plasma triglyceride measurement (mass/volume) 57 mg/dL <150 Serum or plasma cholesterol measurement (mass/volume) 140 mg/dL < 200 Serum or plasma cholesterol in HDL measurement (mass/volume) 62 mg/dL 40-60 Cholesterol in LDL [mass/volume] in serum or plasma by direct assay 62 mg/dL 1-129 Serum or plasma cholesterol in VLDL measurement (mass/volume) 11 mg/dL 5-40 Complete blood count (CBC) with automated white blood cell (WBC) differential - 12/26/16 07:40 Blood leukocytes automated count (number/volume) 10.2 10*3/uL 4.3-11.0 Blood erythrocytes automated count (number/volume) 4.42 10*6/uL 4.35-5.85 Venous blood hemoglobin measurement (mass/volume) 13.4 g/dL 11.5-16.0 Blood hematocrit (volume fraction) 41 % 35-52 Automated erythrocyte mean corpuscular volume 92 [foz_us] 80-99 Automated erythrocyte mean corpuscular hemoglobin (mass per erythrocyte) 30 pg 25-34 Automated erythrocyte mean corpuscular hemoglobin concentration measurement (mass/volume) 33 g/dL 32-36 Automated erythrocyte distribution width ratio 20.1 % 10.0- 14.5 Automated blood platelet count (count/volume) 241 10*3/uL 130-400 Automated blood platelet mean volume measurement 12.0 [foz_us] 7.4-10.4 Automated blood neutrophils/100 leukocytes 77 % 42-75 Automated blood lymphocytes/100 leukocytes 10 % 12-44 Blood monocytes/100 leukocytes 11 % 0-12 Automated blood eosinophils/100 leukocytes 2 % 0-10 Automated blood basophils/100 leukocytes 0 % 0-10 Blood neutrophils automated count (number/volume) 7.8 10*3 1.8-7.8 Blood lymphocytes automated count (number/volume) 1.0 10*3 1.0-4.0 Blood monocytes automated count (number/volume) 1.1 10*3 0.0- 1.0 Automated eosinophil count 0.2 10*3/uL 0.0-0.3 Automated blood basophil count (count/volume) 0.0 10*3/uL 0.0-0.1 Methicillin resistant Staphylococcus aureus (MRSA) screening culture - 12/26/16 07:40 Methicillin resistant Staphylococcus aureus (MRSA) screening culture NEG NRG Complete blood count (CBC) with automated white blood cell (WBC) differential - 01/14/17 15:34 Blood leukocytes automated count (number/volume) 12.8 10*3/uL 4.3-11.0 Blood erythrocytes automated count (number/volume) 2.62 10*6/uL 4.35-5.85 Venous blood hemoglobin measurement (mass/volume) 8.1 g/dL 11.5-16.0 Blood hematocrit (volume fraction) 25 % 35-52 Automated erythrocyte mean corpuscular volume 95 [foz_us] 80-99 Automated erythrocyte mean corpuscular hemoglobin (mass per erythrocyte) 31 pg 25-34 Automated erythrocyte mean corpuscular hemoglobin concentration measurement (mass/volume) 33 g/dL 32-36 Automated erythrocyte distribution width ratio 17.8 % 10.0- 14.5 Automated blood platelet count (count/volume) 221 10*3/uL 130-400 Automated blood platelet mean volume measurement 11.1 [foz_us] 7.4-10.4 Automated blood neutrophils/100 leukocytes 81 % 42-75 Automated blood lymphocytes/100 leukocytes 7 % 12-44 Blood monocytes/100 leukocytes 11 % 0-12 Automated blood eosinophils/100 leukocytes 1 % 0-10 Automated blood basophils/100 leukocytes 0 % 0-10 Blood neutrophils automated count (number/volume) 10.4 10*3 1.8-7.8 Blood lymphocytes automated count (number/volume) 0.9 10*3 1.0-4.0 Blood monocytes automated count (number/volume) 1.4 10*3 0.0- 1.0 Automated eosinophil count 0.1 10*3/uL 0.0-0.3 Automated blood basophil count (count/volume) 0.0 10*3/uL 0.0-0.1 PT panel in platelet poor plasma by coagulation assay - 01/14/17 15:34 Prothrombin time (PT) in platelet poor plasma by coagulation assay 21.7 s 12.2-14.7 INR in platelet poor plasma or blood by coagulation assay 1.9 0.8-1.4 Activated partial thromboplastin time (aPTT) in platelet poor plasma bycoagulation assay - 01/14/17 15:34 Activated partial thromboplastin time (aPTT) in platelet poor plasma bycoagulation assay 33 s 24-35 Blood manual differential performed detection - 01/14/17 15:34 Blood monocytes/100 leukocytes 7 % NRG Manual blood segmented neutrophils/100 leukocytes 83 % NRG Blood band neutrophils/100 leukocytes 2 % NRG Manual blood lymphocytes/100 leukocytes 8 % NRG Manual eosinophils/100 leukocytes in nose 0 % NRG Manual blood basophils/100 leukocytes 0 % NRG Blood polychromasia detection by light microscopy [facility] Comprehensive metabolic panel - 01/14/17 15:34 Serum or plasma sodium measurement (moles/volume) 140 mmol/L 135-145 Serum or plasma potassium measurement (moles/volume) 3.8 mmol/L 3.6-5.0 Serum or plasma chloride measurement (moles/volume) 98 mmol/L 98-107 Carbon dioxide 30 mmol/L 21-32 Serum or plasma anion gap determination (moles/volume) 12 mmol/L 5-14 Serum or plasma urea nitrogen measurement (mass/volume) 43 mg/dL 7-18 Serum or plasma creatinine measurement (mass/volume) 1.08 mg/dL 0.60-1.30 Serum or plasma urea nitrogen/creatinine mass ratio 40 0- 20 Serum or plasma creatinine measurement with calculation of estimated glomerular filtration rate 50 NRG Serum or plasma glucose measurement (mass/volume) 155 mg/dL 70-105 Serum or plasma calcium measurement (mass/volume) 9.4 mg/dL 8.5-10.1 Serum or plasma total bilirubin measurement (mass/volume) 0.4 mg/dL 0.1-1.0 Serum or plasma alkaline phosphatase measurement (enzymatic activity/volume) 71 U/L 40-136 Serum or plasma aspartate aminotransferase measurement (enzymatic activity/volume) 23 U/L 5-34 Serum or plasma alanine aminotransferase measurement (enzymatic activity/volume) 13 U/L 0-55 Serum or plasma protein measurement (mass/volume) 6.6 g/dL 6.4-8.2 Serum or plasma albumin measurement (mass/volume) 3.9 g/dL 3.2-4.5 Magnesium - 01/14/17 15:34 Magnesium 2.0 mg/dL 1.8-2.4 Serum or plasma creatine kinase measurement (enzymatic activity/volume) - 01/14/17 15:34 Serum or plasma creatine kinase measurement (enzymatic activity/volume) 48 U/L 29-168 Serum or plasma lithium measurement (moles/volume) - 01/14/17 15:34 BNP level 434.5 pg/mL <100.0 Serum or plasma creatine kinase MB measurement (enzymatic activity/volume) - 01/14/17 15:34 Serum or plasma creatine kinase MB measurement (enzymatic activity/volume) 1.7 ng/mL <6.6 Serum or plasma troponin i.cardiac measurement (mass/volume) - 01/14/17 15:34 Serum or plasma troponin i.cardiac measurement (mass/volume) < ng/mL <0.30 Serum or plasma thyroxine (T4) free measurement (mass/volume) - 01/14/17 15:34 Serum or plasma thyroxine (T4) free measurement (mass/volume) 0.88 ng/dL 0.70-1.48 Serum or plasma thyrotropin measurement by detection limit <=0.05 miu/l (units/volume) - 01/14/17 15:34 Serum or plasma thyrotropin measurement by detection limit <=0.05 miu/l (units/volume) 5.54 u[iU]/mL 0.35-4.94 Serum or plasma ferritin measurement (mass/volume) - 01/14/17 15:34 Serum or plasma ferritin measurement (mass/volume) 37.0 % 15.0-150.0 IRON TEST - 01/14/17 15:34 Serum or plasma iron measurement (mass/volume) 129 % 35-180 RED CELLS LEUKO REDUCED AS1 - 01/14/17 17:19 RED CELLS LEUKO REDUCED AS1 TRANSFUSED 01/14/[id number] [facility] Blood type T Indirect antibody screen panel - 01/14/17 17:19 ABO+Rh group AP NRG Transfusion band number [id number] NR Blood group antibody screen NEGATIVE NR Complete blood count (CBC) with automated white blood cell (WBC) differential - 01/15/17 03:24 Blood leukocytes automated count (number/volume) 9.1 10*3/uL 4.3-11.0 Blood erythrocytes automated count (number/volume) 3.62 10*6/uL 4.35-5.85 Venous blood hemoglobin measurement (mass/volume) 11.0 g/dL 11.5-16.0 Blood hematocrit (volume fraction) 33 % 35-52 Automated erythrocyte mean corpuscular volume 90 [foz_us] 80-99 Automated erythrocyte mean corpuscular hemoglobin (mass per erythrocyte) 30 pg 25-34 Automated erythrocyte mean corpuscular hemoglobin concentration measurement (mass/volume) 34 g/dL 32-36 Automated erythrocyte distribution width ratio 18.4 % 10.0- 14.5 Automated blood platelet count (count/volume) 193 10*3/uL 130-400 Automated blood platelet mean volume measurement 11.9 [foz_us] 7.4-10.4 Automated blood neutrophils/100 leukocytes 73 % 42-75 Automated blood lymphocytes/100 leukocytes 13 % 12-44 Blood monocytes/100 leukocytes 12 % 0-12 Automated blood eosinophils/100 leukocytes 2 % 0-10 Automated blood basophils/100 leukocytes 0 % 0-10 Blood neutrophils automated count (number/volume) 6.7 10*3 1.8-7.8 Blood lymphocytes automated count (number/volume) 1.1 10*3 1.0-4.0 Blood monocytes automated count (number/volume) 1.1 10*3 0.0- 1.0 Automated eosinophil count 0.2 10*3/uL 0.0-0.3 Automated blood basophil count (count/volume) 0.0 10*3/uL 0.0-0.1 Comprehensive metabolic panel - 01/15/17 03:24 Serum or plasma sodium measurement (moles/volume) 142 mmol/L 135-145 Serum or plasma potassium measurement (moles/volume) 3.1 mmol/L 3.6-5.0 Serum or plasma chloride measurement (moles/volume) 101 mmol/L 98-107 Carbon dioxide 26 mmol/L 21-32 Serum or plasma anion gap determination (moles/volume) 15 mmol/L 5-14 Serum or plasma urea nitrogen measurement (mass/volume) 33 mg/dL 7-18 Serum or plasma creatinine measurement (mass/volume) 0.85 mg/dL 0.60-1.30 Serum or plasma urea nitrogen/creatinine mass ratio 39 0- 20 Serum or plasma creatinine measurement with calculation of estimated glomerular filtration rate > NRG Serum or plasma glucose measurement (mass/volume) 115 mg/dL 70-105 Serum or plasma calcium measurement (mass/volume) 9.0 mg/dL 8.5-10.1 Serum or plasma total bilirubin measurement (mass/volume) 1.2 mg/dL 0.1-1.0 Serum or plasma alkaline phosphatase measurement (enzymatic activity/volume) 75 U/L 40-136 Serum or plasma aspartate aminotransferase measurement (enzymatic activity/volume) 23 U/L 5-34 Serum or plasma alanine aminotransferase measurement (enzymatic activity/volume) 14 U/L 0-55 Serum or plasma protein measurement (mass/volume) 5.6 g/dL 6.4-8.2 Serum or plasma albumin measurement (mass/volume) 3.7 g/dL 3.2-4.5 Stool occult blood screen - 01/15/17 06:30 Stool gastrointestinal hemoglobin detection NEGATIVE NEGATIVE Whole blood basic metabolic panel - 01/16/17 03:49 Serum or plasma sodium measurement (moles/volume) 143 mmol/L 135-145 Serum or plasma potassium measurement (moles/volume) 3.6 mmol/L 3.6-5.0 Serum or plasma chloride measurement (moles/volume) 102 mmol/L 98-107 Carbon dioxide 28 mmol/L 21-32 Serum or plasma anion gap determination (moles/volume) 13 mmol/L 5-14 Serum or plasma urea nitrogen measurement (mass/volume) 19 mg/dL 7-18 Serum or plasma creatinine measurement (mass/volume) 0.81 mg/dL 0.60-1.30 Serum or plasma urea nitrogen/creatinine mass ratio 23 0- 20 Serum or plasma creatinine measurement with calculation of estimated glomerular filtration rate > NRG Serum or plasma glucose measurement (mass/volume) 122 mg/dL 70-105 Serum or plasma calcium measurement (mass/volume) 8.9 mg/dL 8.5-10.1 Magnesium - 01/16/17 03:49 Magnesium 2.1 mg/dL 1.8-2.4 Complete blood count (CBC) with automated white blood cell (WBC) differential - 01/16/17 03:49 Blood leukocytes automated count (number/volume) 8.6 10*3/uL 4.3-11.0 Blood erythrocytes automated count (number/volume) 3.64 10*6/uL 4.35-5.85 Venous blood hemoglobin measurement (mass/volume) 11.3 g/dL 11.5-16.0 Blood hematocrit (volume fraction) 34 % 35-52 Automated erythrocyte mean corpuscular volume 93 [foz_us] 80-99 Automated erythrocyte mean corpuscular hemoglobin (mass per erythrocyte) 31 pg 25-34 Automated erythrocyte mean corpuscular hemoglobin concentration measurement (mass/volume) 34 g/dL 32-36 Automated erythrocyte distribution width ratio 19.7 % 10.0- 14.5 Automated blood platelet count (count/volume) 202 10*3/uL 130-400 Automated blood platelet mean volume measurement 11.7 [[facility]] 7.4-10.4 Automated blood neutrophils/100 leukocytes 73 % 42-75 Automated blood lymphocytes/100 leukocytes 12 % 12-44 Blood monocytes/100 leukocytes 13 % 0-12 Automated blood eosinophils/100 leukocytes 2 % 0-10 Automated blood basophils/100 leukocytes 1 % 0-10 Blood neutrophils automated count (number/volume) 6.3 10*3 1.8-7.8 Blood lymphocytes automated count (number/volume) 1.0 10*3 1.0-4.0 Blood monocytes automated count (number/volume) 1.1 10*3 0.0- 1.0 Automated eosinophil count 0.2 10*3/uL 0.0-0.3 Automated blood basophil count (count/volume) 0.0 10*3/uL 0.0-0.1 HH - 01/21/17 15:07 Hct 35.9 % 36.0-46.0 Hgb 11.7 g/dL 13.0-15.0 Comprehensive metabolic panel - 02/05/17 14:05 Serum or plasma sodium measurement (moles/volume) 141 mmol/L 135-145 Serum or plasma potassium measurement (moles/volume) 3.9 mmol/L 3.6-5.0 Serum or plasma chloride measurement (moles/volume) 101 mmol/L 98-107 Carbon dioxide 29 mmol/L 21-32 Serum or plasma anion gap determination (moles/volume) 11 mmol/L 5-14 Serum or plasma urea nitrogen measurement (mass/volume) 17 mg/dL 7-18 Serum or plasma creatinine measurement (mass/volume) 1.18 mg/dL 0.60-1.30 Serum or plasma urea nitrogen/creatinine mass ratio 14 NRG Serum or plasma creatinine measurement with calculation of estimated glomerular filtration rate 45 NRG Serum or plasma glucose measurement (mass/volume) 148 mg/dL 70-105 Serum or plasma calcium measurement (mass/volume) 9.1 mg/dL 8.5-10.1 Serum or plasma total bilirubin measurement (mass/volume) 0.5 mg/dL 0.1-1.0 Serum or plasma alkaline phosphatase measurement (enzymatic activity/volume) 116 U/L 40-136 Serum or plasma aspartate aminotransferase measurement (enzymatic activity/volume) 22 U/L 5-34 Serum or plasma alanine aminotransferase measurement (enzymatic activity/volume) 18 U/L 0-55 Serum or plasma protein measurement (mass/volume) 6.6 g/dL 6.4-8.2 Serum or plasma albumin measurement (mass/volume) 3.9 g/dL 3.2-4.5 Lipid 1996 panel - 05/13/17 10:52 Serum or plasma triglyceride measurement (mass/volume) 52 mg/dL <150 Serum or plasma cholesterol measurement (mass/volume) 132 mg/dL < 200 Serum or plasma cholesterol in HDL measurement (mass/volume) 53 mg/dL 40-60 Cholesterol in LDL [mass/volume] in serum or plasma by direct assay 63 mg/dL 1-129 Serum or plasma cholesterol in VLDL measurement (mass/volume) 10 mg/dL 5-40 Hemoglobin A1C - 06/03/17 14:17 % A1C 5.30 % 5.40-6.60 AvGlu 111 mg/dL 70-110 Complete blood count (CBC) with automated white blood cell (WBC) differential - 12/24/18 07:25 Blood leukocytes automated count (number/volume) 17.7 10*3/uL 4.3-11.0 Blood erythrocytes automated count (number/volume) 4.17 10*6/uL 4.35-5.85 Venous blood hemoglobin measurement (mass/volume) 13.8 g/dL 11.5-16.0 Blood hematocrit (volume fraction) 40 % 35-52 Automated erythrocyte mean corpuscular volume 95 [foz_us] 80-99 Automated erythrocyte mean corpuscular hemoglobin (mass per erythrocyte) 33 pg 25-34 Automated erythrocyte mean corpuscular hemoglobin concentration measurement (mass/volume) 35 g/dL 32-36 Automated erythrocyte distribution width ratio 14.4 % 10.0- 14.5 Automated blood platelet count (count/volume) 211 10*3/uL 130-400 Automated blood platelet mean volume measurement 11.3 [foz_us] 7.4-10.4 Automated blood neutrophils/100 leukocytes 88 % 42-75 Automated blood lymphocytes/100 leukocytes 4 % 12-44 Blood monocytes/100 leukocytes 7 % 0-12 Automated blood eosinophils/100 leukocytes 0 % 0-10 Automated blood basophils/100 leukocytes 0 % 0-10 Blood neutrophils automated count (number/volume) 15.7 10*3 1.8-7.8 Blood lymphocytes automated count (number/volume) 0.7 10*3 1.0-4.0 Blood monocytes automated count (number/volume) 1.3 10*3 0.0- 1.0 Automated eosinophil count 0.1 10*3/uL 0.0-0.3 Automated blood basophil count (count/volume) 0.0 10*3/uL 0.0-0.1 Comprehensive metabolic panel - 12/24/18 07:25 Serum or plasma sodium measurement (moles/volume) 139 mmol/L 135-145 Serum or plasma potassium measurement (moles/volume) 4.0 mmol/L 3.6-5.0 Serum or plasma chloride measurement (moles/volume) 103 mmol/L 98-107 Carbon dioxide 26 mmol/L 21-32 Serum or plasma anion gap determination (moles/volume) 10 mmol/L 5-14 Serum or plasma urea nitrogen measurement (mass/volume) 19 mg/dL 7-18 Serum or plasma creatinine measurement (mass/volume) 1.02 mg/dL 0.60-1.30 Serum or plasma urea nitrogen/creatinine mass ratio 19 NRG Serum or plasma creatinine measurement with calculation of estimated glomerular filtration rate 53 NRG Serum or plasma glucose measurement (mass/volume) 104 mg/dL 70-105 Serum or plasma calcium measurement (mass/volume) 9.0 mg/dL 8.5-10.1 Serum or plasma total bilirubin measurement (mass/volume) 0.9 mg/dL 0.1-1.0 Serum or plasma alkaline phosphatase measurement (enzymatic activity/volume) 83 U/L 40-136 Serum or plasma aspartate aminotransferase measurement (enzymatic activity/volume) 23 U/L 5-34 Serum or plasma alanine aminotransferase measurement (enzymatic activity/volume) 14 U/L 0-55 Serum or plasma protein measurement (mass/volume) 6.8 g/dL 6.4-8.2 Serum or plasma albumin measurement (mass/volume) 3.9 g/dL 3.2-4.5 CALCIUM CORRECTED 9.1 mg/dL 8.5-10.1 PT panel in platelet poor plasma by coagulation assay - 12/24/18 07:25 Prothrombin time (PT) in platelet poor plasma by coagulation assay 42.6 s 12.2-14.7 INR in platelet poor plasma or blood by coagulation assay 4.2 0.8-1.4 Activated partial thromboplastin time (aPTT) in platelet poor plasma bycoagulation assay - 12/24/18 07:25 Activated partial thromboplastin time (aPTT) in platelet poor plasma bycoagulation assay 45 s 24-35 Serum or plasma troponin i.cardiac measurement (mass/volume) - 12/24/18 07:25 Serum or plasma troponin i.cardiac measurement (mass/volume) < ng/mL <0.028 Blood manual differential performed detection - 12/24/18 07:25 Blood monocytes/100 leukocytes 7 % NRG Manual blood segmented neutrophils/100 leukocytes 83 % NRG Blood band neutrophils/100 leukocytes 6 % NRG Manual blood lymphocytes/100 leukocytes 4 % NRG Blood erythrocyte morphology finding identification NORMAL NRG Blood lactic acid measurement (moles/volume) - 12/24/18 07:45 Blood lactic acid measurement (moles/volume) 1.16 mmol/L 0.50- 2.00 Complete urinalysis with reflex to culture - 12/24/18 07:50 Urine color determination YELLOW NRG Urine clarity determination CLEAR NRG Urine pH measurement by test strip 7 5-9 Specific gravity of urine by test strip 1.010 1.016-1.022 Urine protein assay by test strip, semi-quantitative NEGATIVE NEGATIVE Urine glucose detection by automated test strip NEGATIVE NEGATIVE Erythrocytes detection in urine sediment by light microscopy NEGATIVE NEGATIVE Urine ketones detection by automated test strip NEGATIVE NEGATIVE Urine nitrite detection by test strip NEGATIVE NEGATIVE Urine total bilirubin detection by test strip NEGATIVE NEGATIVE Urine urobilinogen measurement by automated test strip (mass/volume) NORMAL NORMAL Urine leukocyte esterase detection by dipstick 1+ NEGATIVE Automated urine sediment erythrocyte count by microscopy (number/high power field) NONE NRG Automated urine sediment leukocyte count by microscopy (number/high power field) [HPF] NRG Bacteria detection in urine sediment by light microscopy LARGE NRG Crystals detection in urine sediment by light microscopy NONE NRG Casts detection in urine sediment by light microscopy NONE NRG Mucus detection in urine sediment by light microscopy NEGATIVE NRG Complete urinalysis with reflex to culture CULTURE PENDING NRG Arterial blood gas measurement - 12/24/18 07:59 Blood pCO2 31 mm[Hg] 35-45 Blood pO2 58 mm[Hg] 79-93 Arterial blood bicarbonate measurement (moles/volume) 21 mmol/L 23-27 Arterial blood base excess by calculation -2.0 mmol/L -2.5-2.5 Arterial blood oxygen saturation measurement 90 % 94-100 * Inhaled oxygen flow rate 5L NRG Arterial blood pH measurement with patient temperature correction 7.45 7.37-7.43 Arterial blood carbon dioxide, total measurement (moles/volume) 22.3 mmol/L 21.0-31.0 Body site RT RAD NRG Assessment of wrist artery patency prior to arterial puncture YES-POS NRG Setting of ventilation mode NO NRG Measurement of body temperature 98.9 NRG Encounters ACCT No. Visit Date/Time Discharge Status Pt. Type Provider Facility Loc./Unit Complaint [id number] 09/21/2018 00:11:00 09/21/2018 23:59:59 CLS Preadmit KADEN SCHAFFER [facility] ONC [id number] 07/01/2018 12:56:00 09/20/2018 00:01:00 DIS Outpatient KADEN SCHAFFER [facility] ONC [id number] 06/17/2018 13:36:00 06/17/2018 23:59:59 CLS Outpatient KARON MORGAN [facility] CARD CAROTID STENOSIS [id number] 06/01/2018 11:43:00 06/01/2018 23:59:59 CLS Outpatient LOUISE SPARROW MD [facility] LAB I10 [id number] 03/16/2018 13:39:00 03/22/2018 00:01:00 DIS Outpatient KADEN SCHAFFER [facility] ONC [id number] 01/05/2018 11:43:00 01/05/2018 23:59:59 CLS Outpatient LOUISE SPARROW MD [facility] LAB I48.0,I65.23 [id number] 12/15/2017 13:48:00 12/21/2017 00:01:00 DIS Outpatient KADEN SCHAFFER [facility] ONC [id number] 11/26/2017 13:19:00 11/26/2017 23:59:59 CLS Outpatient RAJAT GRIGSBY 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 [facility] LAB J43.9 [id number] 06/23/2017 13:10:00 09/21/2017 00:01:00 DIS Outpatient KADEN SCHAFFER Marlena [facility] ONC [id number] 08/06/2017 13:32:00 08/06/2017 23:59:59 CLS Outpatient RAJAT GRIGSBY 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 [facility] LAB J43.9 [id number] 05/26/2017 12:19:00 05/26/2017 23:59:59 CLS Outpatient ANDREWS SZYMANSKI, LOUISE Snyder [facility] CARD HTN [id number] 05/13/2017 10:39:00 05/13/2017 23:59:59 CLS Outpatient ABDOULAYE SZYMANSKI, ANJU Melara [facility] LAB I 48.0 I10 E78.2 I 65.23 I50.32 [id number] 05/05/2017 13:42:00 05/05/2017 23:59:59 CLS Outpatient RAJAT GRIGSBY 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 [facility] LAB J43.9,I50.32,R09.02,I27.2 [id number] 04/22/2017 11:10:00 05/02/2017 00:01:00 DIS Outpatient SARBJIT KADEN Mendiola [facility] ONC [id number] 02/05/2017 13:53:00 02/05/2017 23:59:59 CLS Outpatient RAJAT GRIGSBY 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 [facility] LAB I10,E78.2 [id number] 01/14/2017 16:30:00 01/16/2017 12:00:00 DIS Inpatient ANAT REBOLLAR DO [facility] ICU AFIB W RVR,ANEMIA,SUSPECTED GI BLEED [id number] 12/26/2016 07:17:00 12/26/2016 11:40:00 DIS Outpatient JANETTE SZYMANSKI, TUNG Hernandez [facility] SDC NOSE BLEED R04.0 [id number] 12/23/2016 09:44:00 12/23/2016 23:59:59 CLS Outpatient TUNG SAVAGE MD [facility] PREOP EPISTAXIS [id number] 12/16/2016 10:58:00 12/16/2016 23:59:59 CLS Outpatient KARON MORGAN [facility] LAB HTN,HYPERLIPIDEMIA [id number] 10/28/2016 13:36:00 10/28/2016 23:59:59 CLS Outpatient RAJAT GRIGSBY 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 [facility] LAB COPD W EMPHYSEMA [id number] 10/07/2016 09:38:00 10/07/2016 23:59:59 CLS Outpatient AMBROSIO KUMAR DO [facility] LAB DYSPNEA,COPD [id number] 09/05/2016 09:30:00 09/05/2016 23:59:59 CLS Outpatient RAJAT GRIGSBY 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 [facility] LAB COPD,DYSPNEA [id number] 08/12/2016 11:28:00 08/12/2016 23:59:59 CLS Outpatient RAJAT GRIGSBY 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 [facility] LAB COPD W/EMPHYSEIMA [id number] 08/11/2016 15:52:00 08/11/2016 23:59:59 CLS Outpatient RAJAT GRIGSBY 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 [facility] RAD COPD,DYSPNEA [id number] 07/08/2016 00:10:00 07/08/2016 23:59:59 CLS Preadmit RAJAT GRIGSBY 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 [facility] PULM PULM HTN [id number] 04/08/2016 14:32:00 07/07/2016 00:01:00 DIS Outpatient RAJAT GRIGSBY 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 [facility] PULM PULM HTN [id number] 04/03/2016 14:30:00 04/07/2016 00:01:00 DIS Outpatient RAJAT GRIGSBY 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 [facility] PULM PULM HTN [id number] 03/28/2016 13:29:00 03/28/2016 23:59:59 CLS Outpatient KARON MORGAN [facility] CARD CAROTID STENOSIS, DIASTOLIC DYSFUNCTION, HTN, HYPE [id number] 02/29/2016 13:50:00 02/29/2016 23:59:59 CLS Outpatient AMBROSIO KUMAR DO [facility] RT COPD W/EMPHYSEMA,DYSPNEA,PULM HTN DUE TO HYPOXEMIA [id number] 02/05/2016 03:29:00 02/05/2016 06:23:00 DIS Emergency JOSE SZYMANSKI, SKYE Moncada [facility] ER ON BLOOD THINNERS,BLEEDING FROM MOUTH [id number] 01/07/2016 10:15:00 01/07/2016 23:59:59 CLS Preadmit RAJAT GRIGSBY APRN [facility] PULM PULMINARY HTN,COPD,HYPOXEMIA REQUIRING OXYGEN [id number] 01/03/2016 14:30:00 01/06/2016 00:01:00 DIS Outpatient RAJAT GRIGSBY APRN [facility] PULM PULMINARY HTN,COPD,HYPOXEMIA REQUIRING OXYGEN [id number] 12/07/2015 11:17:00 12/07/2015 15:05:00 DIS Outpatient JANETTE SZYMANSKI, TUNG Hernandez [facility] SDC RIGHT POSTERIOR NOSE BLEED [id number] 11/24/2015 05:40:00 11/24/2015 14:36:00 DIS Inpatient CORNELIUS SZYMANSKI, GEORGETTE Schafer [facility] 4TH NOSEBLEED;EXCESSIVE ANTICOAGULATION;ANEMIA [id number] 10/08/2015 09:14:00 10/08/2015 23:59:59 CLS Outpatient LOUISE SPARROW MD [facility] LAB HTN,PULMONARY HTN DUE TO HYPOXIA [id number] 09/10/2015 08:33:00 09/10/2015 23:59:59 CLS Outpatient LOUISE SPARROW MD [facility] RAD CAROTID STENOSIS [id number] 08/28/2015 13:54:00 08/28/2015 14:28:00 DIS Outpatient AMBROSIO KUMAR DO [facility] SLEEP SNORING, ARRHYTHMIAS, EDS [id number] 08/08/2015 07:30:00 08/08/2015 15:40:00 DIS Outpatient LOUISE SPARROW MD [facility] CATH ABNORMAL STRESS TEST,SHORNTESS OF BREATH,HTP,HTN [id number] 07/25/2015 10:48:00 07/25/2015 23:59:59 CLS Outpatient LOUISE SPARROW MD [facility] CARD A-FIB W/ RVR,DYSPNEA,HTN,HYPERLIPIDEMIA [id number] 06/27/2015 20:30:00 07/02/2015 13:20:00 DIS Inpatient ELANA OSCAR DO [facility] 4TH SOA [id number] 04/28/2015 15:34:00 05/03/2015 13:27:00 DIS Inpatient ANGELA KNOTT MD [facility] DYSPNEA,LOW OXYGEN,ACUTE OR CHRONIC CHF,PNEUMONIA [id number] 04/25/2015 20:45:00 04/26/2015 13:25:00 DIS Inpatient ANAT REBOLLAR DO [facility] CSD ACUTE HEART FAILURE [id number] 01/24/2015 08:34:00 01/24/2015 13:00:00 DIS Outpatient JIM MEAD MD [facility] SDC NAUSEA [id number] 01/18/2015 06:09:00 01/18/2015 23:59:59 CLS Outpatient JIM MEAD MD [facility] PREOP NAUSEA [id number] 01/08/2015 09:34:00 01/08/2015 23:59:59 CLS Outpatient ANJU STANFORD MD [facility] CARD EPIGASTRIC PAIN [id number] 12/28/2014 10:22:00 12/28/2014 23:59:59 CLS Outpatient AMBROSIO KUMAR DO [facility] RAD COPD,DYSPNEA,PE [id number] 11/13/2014 11:25:00 11/14/2014 07:15:00 DIS Inpatient LOUISE SPARROW MD [facility] CSD DIGOXIN TOXICITY HYPONATREMIA CHF W/EFFUSIONS [id number] 11/08/2014 07:44:00 11/08/2014 23:59:59 CLS Outpatient JOSÉ NEWMAN AMBROSIO Massimo [facility] RT DYSPNEA [id number] 08/30/2014 07:09:00 08/30/2014 09:50:00 DIS Outpatient JIM MEAD MD [facility] SDC SCREENING [id number] 08/28/2014 10:53:00 08/28/2014 23:59:59 CLS Outpatient LOUISE SPARROW MD [facility] CARD JOE,HTN,HLP [id number] 08/23/2014 05:51:00 08/23/2014 23:59:59 CLS Outpatient JIM MEAD MD [facility] PREOP SCREENING [id number] 12/24/2018 07:36:00 Document Registration [id number] 09/12/2012 11:25:00 Document Registration [id number] 08/30/2012 08:38:00 Document Registration [id number] 06/29/2012 10:34:00 Document Registration [id number] 06/07/2018 14:39:00 06/07/2018 23:59:00 DIS Outpatient Anju Stanford [id number] 06/03/2017 13:50:00 06/03/2017 23:59:00 DIS Outpatient Anju Stanford [id number] 01/21/2017 15:03:00 01/21/2017 23:59:00 DIS Outpatient Anju Stanford [id number] 07/18/2016 14:41:00 07/18/2016 23:59:00 DIS Outpatient Anju Stanford [id number] 04/28/2015 11:44:15 ACT Document Registration
--- NOTE | 2018-12-24 10:34 | ED General ---
General Chief Complaint: Respiratory Problems Stated Complaint: PNA;SEPTIC SHOCK Nursing Triage Note: PT ARRIVED PER EMS, PT CO OF SOB EARLY THIS AM, PT HR 136,SAT 89% ON 4L, B/P 84/40. IN ROOM UPON PT ARRIVAL. PT HAS SL IN L HAND #20 BY EMS. Nursing Sepsis Screen: No Definite Risk Source of Information: Patient, EMS, Family Exam Limitations: No Limitations History of Present Illness Date Seen by Provider: December 24, 2018 Time Seen by Provider: 07:21 Initial Comments Here by EMS with report of low O2 saturations at home in the range of 80%. Improved with increased flow. Currently 89% on 4 L. Patient apparently has been confused at home overnight and O2 saturations are in the mid 80s after moving over to the bed. Patient denies pain but does admit to shortness of breath. Does state that she has not been feeling well recently. Does have history of COPD and heart failure in the remote past. Denies dysuria. Blood pressure noted to be low for EMS and the range of 80s but improved on arrival initially. Timing/Duration: 12-24 Hours, Getting Worse Severity: Moderate Associated Systoms: Cough; No Fever/Chills, No Nausea/Vomiting; Shortness of Air, Weakness Allergies and Home Medications Allergies Coded Allergies: valacyclovir HCl (Verified Allergy, Unknown, RASH, 08/30/14) Home Medications Acetaminophen 500 Mg Tablet, 500 MG PO Q4H PRN for PAIN-MILD, (Reported) Albuterol Sulfate 2.5 Mg/3 Ml Vial.neb, 2.5 MG NEB EVERY 4-6 HOURS PRN for SHORTNESS OF BREATH, (Reported) Albuterol Sulfate 18 Gm Hfa.aer.ad, 2 PUFF INH QID PRN for SHORTNESS OF BREATH, (Reported) Atorvastatin Calcium 20 Mg Tablet, 20 MG PO HS, (Reported) Budesonide/Formoterol Fumarate 10.2 Gm Hfa.aer.ad, 2 PUFF IH BID, (Reported) Diltiazem HCl 300 Mg Cap.er.24h, 300 MG PO DAILY, (Reported) Docusate Sodium 100 Mg Capsule, 100 MG PO BID PRN for CONSTIPATION-1ST LINE, (Reported) Ferrous Sulfate 325 Mg Tablet, 325 MG PO BID, (Reported) Furosemide 40 Mg Tablet, 40 MG PO 0800,1500, (Reported) Levothyroxine Sodium 25 Mcg Tablet, 25 MCG PO DAILY, (Reported) Metoprolol Succinate 50 Mg Tab.er.24h, 50 MG PO HS, (Reported) Montelukast Sodium 10 Mg Tablet, 10 MG PO HS, (Reported) Multivitamin 1 Each Tablet, 1 TAB PO DAILY, (Reported) [place]-3 Fatty Acids/Fish Oil 1 Each Capsule, 1,000 MG PO DAILY, (Reported) Pantoprazole Sodium 40 Mg Tablet.dr, 40 MG PO 1800, (Reported) Potassium Chloride 20 Meq Tab.er.prt, 20 MEQ PO BID, (Reported) Rivaroxaban 20 Mg Tablet, 20 MG PO 1800, (Reported) Sildenafil Citrate 20 Mg Tablet, 20 MG PO TID, (Reported) Sodium Chloride 44 Ml [place], 1-2 SPRAYS NS TID PRN for DRY NOSE, (Reported) Sodium Chloride/Aloe Vera 22 Ml [place], 1 SPRAY NA BID PRN for DRY NOSE, (Reported) Tiotropium [place] 1 Inh Aerp, 1 CAP IH DAILY, (Reported) Patient Home Medication List Home Medication List Reviewed: Yes Review of Systems Review of Systems Constitutional: see HPI; No chills, No fever; weakness EENTM: no symptoms reported Respiratory: cough, short of breath Cardiovascular: No chest pain, No edema; palpitations Gastrointestinal: No nausea, No vomiting Genitourinary: decreased output : No Musculoskeletal: no symptoms reported Skin: no symptoms reported Psychiatric/Neurological: See HPI All Other Systems Reviewed Negative Unless Noted: Yes Past Rjljimx-Jvkwkx-Qrvdax Hx Past Med/Social Hx: Reviewed Nursing Past Med/Soc Hx Patient Social History Alcohol Use: Denies Use Recreational Drug Use: No Smoking Status: Former Smoker Former Smoker, Quit: December 02, 1999 Recent Foreign Travel: No Contact w/Someone Who Travel: No Recent Infectious Disease Expo: No Recent Hopitalizations: No Physical Abuse: No Sexual Abuse: No Immunizations Up To Date Tetanus Booster (TDap): Less than 5yrs PED Vaccines UTD: Yes Date of Pneumonia Vaccine: Jan 26, 2012 Date of Influenza Vaccine: May 30, 2015 Seasonal Allergies Seasonal Allergies: No Past Medical History Surgeries: Yes (t&a, cataract removal, lumpectomy) Cardiac, Eye Surgery, Vascular Surgery Respiratory: Yes (PULMONARY HTN; CONTINUOUS HOME O2 5L/NC IN DAY, 6L/NC AT NIGHT ) COPD, Emphysema Currently Using CPAP: No Currently Using BIPAP: No Cardiac: Yes (CHF, RAYNAUD'S,CARDIAC CATH--NO INTERVENTION,RIGHT CAROTID STENT) Atrial Fibrillation, Chronic Edema/Swelling, High Cholesterol, Hypertension, Peripheral Vascular Neurological: No Reproductive Disorders: No Female Reproductive Disorders: Denies Sexually Transmitted Disease: No HIV/AIDS: No UTI-Chronic Gastrointestinal: Yes Gastroesophageal Reflux Musculoskeletal: Yes (RAYNAUD'S ) Arthritis Endocrine: Yes Hypothyroidsim Cataract Loss of Vision: Bilateral Hearing Impairment: Denies Cancer: No Psychosocial: No Integumentary: No Blood Disorders: Yes (ANEMIA--) Adverse Reaction/Blood Tranf: No Family Medical History Reviewed Nursing Family Hx A BLOOD DISEASE 19 FATHER Blood disease Diabetes mellitus G8 BROTHER (BORDERLINE DIABETIC) Hypertension 19 FATHER Psychosocial problem G8 BROTHER (MENTAL RETARDATION) Respiratory disorder 19 MOTHER (COPD) G8 BROTHER (COPD) COPD Physical Exam-Suspected Sepsis Physical Exam Vital Signs Vital Signs - First Documented 12/24/18 07:16 Temp 98.9 Pulse 136 Resp 22 B/P (MAP) 84/40 (55) Pulse Ox 89 O2 Delivery Nasal Cannula O2 Flow Rate 4.00 Capillary Refill : Less Than 3 Seconds Blood Pressure Mean: 55 Height, Weight, BMI Height: 5'6.00" Weight: 131lbs. 0.0oz. [id number]; 25.8 BMI Method:Stated General Appearance: WD/WN, Mild Distress HEENT: PERRL/EOMI, Pharynx Normal Neck: Non Tender, Supple Respiratory: Accessory Muscle Use, Decreased Breath Sounds Cardiovascular: Irregularly Irregular, Tachycardia Gastrointestinal: Non Tender, Soft Back: Normal Inspection, No CVA Tenderness, No Vertebral Tenderness Extremity: Normal Range of Motion, Non Tender Neurologic/Psychiatric: Alert, Oriented x3, No Motor/Sensory Deficits Skin: normal color, warm/dry Focused Exam Lactate Level 12/24/18 07:45: Lactic Acid Level 1.16 Lactic Acid Level Progress/Results/Core Measures Suspected Sepsis Recent Fever Within 48 Hours: No Infection Criteria Present: None New/Unexplained Altered Menta: Yes Sepsis Screen: No Definite Risk SIRS Temperature:98.9 Pulse: 136 Respiratory Rate: 22 Laboratory Tests 12/24/18 07:25: White Blood Count 17.7H Blood Pressure 84 /40 Mean: 55 12/24/18 07:45: Lactic Acid Level 1.16 Laboratory Tests 12/24/18 07:25: Creatinine 1.02, INR Comment 4.2H, Platelet Count 211, Total Bilirubin 0.9 Results/Orders Lab Results Laboratory Tests Test 12/24/18 07:25 12/24/18 07:45 12/24/18 07:50 12/24/18 07:59 Range/Units White Blood Count 17.7 H 4.3-11.0 10^3/uL Red Blood Count 4.17 L 4.35-5.85 10^6/uL Hemoglobin 13.8 11.5-16.0 G/DL Hematocrit 40 35-52 % Mean Corpuscular Volume 95 80-99 FL Mean Corpuscular Hemoglobin 33 25-34 PG Mean Corpuscular Hemoglobin Concent 35 32-36 G/DL Red Cell Distribution Width 14.4 10.0-14.5 % Platelet Count 211 130-400 10^3/uL Mean Platelet Volume 11.3 H 7.4-10.4 FL Neutrophils (%) (Auto) 88 H 42-75 % Lymphocytes (%) (Auto) 4 L 12-44 % Monocytes (%) (Auto) 7 0-12 % Eosinophils (%) (Auto) 0 0-10 % Basophils (%) (Auto) 0 0-10 % Neutrophils # (Auto) 15.7 H 1.8-7.8 X 10^3 Lymphocytes # (Auto) 0.7 L 1.0-4.0 X 10^3 Monocytes # (Auto) 1.3 H 0.0-1.0 X 10^3 Eosinophils # (Auto) 0.1 0.0-0.3 10^3/uL Basophils # (Auto) 0.0 0.0-0.1 10^3/uL Neutrophils % (Manual) 83 % Lymphocytes % (Manual) 4 % Monocytes % (Manual) 7 % Band Neutrophils 6 % Blood Morphology Comment NORMAL Prothrombin Time 42.6 H 12.2-14.7 SEC INR Comment 4.2 H 0.8-1.4 Activated Partial Thromboplast Time 45 H 24-35 SEC Sodium Level 139 135-145 MMOL/L Potassium Level 4.0 3.6-5.0 MMOL/L Chloride Level 103 98-107 MMOL/L Carbon Dioxide Level 26 21-32 MMOL/L Anion Gap 10 5-14 MMOL/L Blood Urea Nitrogen 19 H 7-18 MG/DL Creatinine 1.02 0.60-1.30 MG/DL Estimat Glomerular Filtration Rate 53 BUN/Creatinine Ratio 19 Glucose Level 104 70-105 MG/DL Calcium Level 9.0 8.5-10.1 MG/DL Corrected Calcium 9.1 8.5-10.1 MG/DL Total Bilirubin 0.9 0.1-1.0 MG/DL Aspartate Amino Transf (AST/SGOT) 23 5-34 U/L Alanine Aminotransferase (ALT/SGPT) 14 0-55 U/L Alkaline Phosphatase 83 40-136 U/L Troponin I < 0.028 <0.028 NG/ML Total Protein 6.8 6.4-8.2 GM/DL Albumin 3.9 3.2-4.5 GM/DL Thyroid Stimulating Hormone (TSH) 5.43 H 0.35-4.94 UIU/ML Lactic Acid Level 1.16 0.50-2.00 MMOL/L Urine Color YELLOW Urine Clarity CLEAR Urine pH 7 5-9 Urine Specific [place] 1.010 L 1.016-1.022 Urine Protein NEGATIVE NEGATIVE Urine Glucose (UA) NEGATIVE NEGATIVE Urine Ketones NEGATIVE NEGATIVE Urine Nitrite NEGATIVE NEGATIVE Urine Bilirubin NEGATIVE NEGATIVE Urine Urobilinogen NORMAL NORMAL MG/DL Urine Leukocyte Esterase 1+ H NEGATIVE Urine RBC (Auto) NEGATIVE NEGATIVE Urine RBC NONE /HPF Urine WBC 2-5 /HPF Urine Crystals NONE /LPF Urine Bacteria LARGE H /HPF Urine Casts NONE /LPF Urine Mucus NEGATIVE /LPF Urine Culture Indicated CULTURE PENDING Blood Gas Puncture Site RT RAD Blood Gas Patient Temperature 98.9 Arterial Blood pH 7.45 H 7.37-7.43 Arterial Blood Partial Pressure CO2 31 L 35-45 MMHG Arterial Blood Partial Pressure O2 58 L 79-93 MMHG Arterial Blood HCO3 21 L 23-27 MMOL/L Arterial Blood Total CO2 22.3 21.0-31.0 MMOL/L Arterial Blood Oxygen Saturation 90 L 94-100 % Arterial Blood Base Excess -2.0 -2.5-2.5 MMOL/L Wei Test YES-POS Blood Gas Ventilator Setting NO Blood Gas Inspired Oxygen 5L My Orders Orders - PIO GARCIA MD Cbc With Automated Diff (12/24/18 07:21) Comprehensive Metabolic Panel (12/24/18 07:21) Blood Culture (12/24/18 07:21) Sputum Culture (12/24/18 07:21) Urinalysis (12/24/18 07:21) Urine Culture (12/24/18 07:21) Protime With Inr (12/24/18 07:21) Partial Thromboplastin Time (12/24/18 07:21) Chest 1 View, Ap/Pa Only (12/24/18 07:21) Ed Iv/Invasive Line Start (12/24/18 07:21) Ed Iv/Invasive Line Start (12/24/18 07:21) Ekg Tracing (12/24/18 07:21) Troponin I (12/24/18 07:21) Vital Signs Adult Sepsis Patie Q15M (12/24/18 07:21) O2 (12/24/18 07:21) Remove Rings In Anticipation O (12/24/18 07:21) Lactic Acid Analyzer (12/24/18 07:21) Ns Iv 1000 Ml (Sodium Chloride 0.9%) (12/24/18 07:21) Albuterol/Ipra Inhalation Soln (Duoneb I (12/24/18 07:30) Svn Small Volume Nebulizer (12/24/18 07:21) Arterial Blood Gas (12/24/18 07:23) Manual Differential (12/24/18 07:25) Arterial Blood Draw (12/24/18 07:29) Norepinephrine (Levophed) (12/24/18 09:00) Ed Iv/Invasive Line Start (12/24/18 09:11) Ns Iv 1000 Ml (Sodium Chloride 0.9%) (12/24/18 09:11) Norepinephrine (Levophed) (12/24/18 09:15) Piperacillin/Tazobactam (Bulk) (Zosyn In (12/24/18 09:15) Medications Given in ED Vital Signs/I&O 12/24/18 12/24/18 12/24/18 12/24/18 12:00 12:00 12:39 13:00 Pulse 104 107 Resp 29 20 B/P (MAP) 121/75 (90) 112/76 (88) Pulse Ox 98 91 98 98 O2 Delivery OxyMask OxyMask OxyMask OxyMask O2 Flow Rate 4.00 5.00 4.00 5.00 12/24/18 12/24/18 12/24/18 12/24/18 13:18 14:00 14:55 15:00 Pulse 101 103 97 Resp 27 16 B/P (MAP) 119/69 (86) 101/69 (80) Pulse Ox 98 96 97 O2 Delivery OxyMask Nasal Cannula OxyMask O2 Flow Rate 5.00 3.50 5.00 12/24/18 12/24/18 12/24/18 12/24/18 16:00 16:00 16:00 17:00 Temp 98.2 Pulse 101 94 Resp 16 27 B/P (MAP) 111/52 (71) 87/55 (66) Pulse Ox 92 98 O2 Delivery OxyMask OxyMask OxyMask O2 Flow Rate 5.00 4.00 5.00 12/24/18 12/24/18 12/24/18 12/24/18 18:00 18:39 19:00 19:00 Pulse 81 100 102 Resp 26 25 B/P (MAP) 104/67 (79) 102/57 (72) Pulse Ox 92 95 O2 Delivery OxyMask Nasal Cannula OxyMask O2 Flow Rate 5.00 3.50 5.00 12/24/18 12/24/18 12/24/18 12/24/18 20:00 20:00 20:00 20:27 Temp 98.2 Pulse 86 Resp 16 B/P (MAP) 111/66 (81) Pulse Ox 91 O2 Delivery OxyMask OxyMask OxyMask O2 Flow Rate 5.00 6.00 7.00 12/24/18 12/24/18 12/24/18 21:00 22:00 22:09 Pulse 92 101 Resp 23 16 B/P (MAP) 121/68 (85) 139/88 (105) Pulse Ox 100 97 94 O2 Delivery OxyMask OxyMask OxyMask O2 Flow Rate 7.00 7.00 10.00 Capillary Refill : Less Than 3 Seconds Blood Pressure Mean: 55 Progress Note : Progress Note Seen and evaluated. IV 2, labs, UA, EKG and chest x-ray ordered. Duo neb ordered. We did increase her O2 sats to mask each sats greater than 90%. Was noted to be in atrial fibrillation. She is hypotensive. Ultimately his decision for central line made. Central line placed by surgeon and normal saline 2 L bolus ordered to exceed 30 mL/kg bolus due to concerns for septic shock. Ultimately started on Levophed at 0.1 mcg/kg/m and this did improve her blood pressure from the 60s to 80s systolic to 110s systolic. Zosyn 4.5 g IV given for concerns of pneumonia. I did discuss the case with Dr. Cage at 0945 discussing my concerns of the septic shock. Patient will be admitted to ICU. We will continue Zosyn. I have discussed the case with Dr. Russell at 0955 especially with respect to the atrial fibrillation. We will see if fluids improve her symptoms. Normal saline 250 mL an hour continued as per septic shock protocol. I did discuss the case with Dr. SHIELDS at 1000 and he accepts patient for admission, inpatient status. Patient to go to ICU. Patient and family updated and agree with plan. Gentile catheter was placed for critical care monitoring. 1030: Patient to ICU. I attest to focused exam at this time. ECG Initial ECG Impression Date: December 24, 2018 Initial ECG Impression Time: 07:38 Initial ECG Rate: 130 Initial ECG Rhythm: A Fib/Flutter Initial ECG Impression: Atrial Fibrillation w/RVR Comment Atrial fibrillation with rapid ventricular response. No evidence of ST elevation TX. Normal axis. Change from previous of 14 January 2017. Interpreted by me. Diagnostic Imaging Diagonstic Imaging: Xray Plain Films/CT/US/NM/MRI: chest Comments [facility]. [place], [place] NAME: DENVER JACOBSON [facility] REC#: [id number] PT STATUS: REG ER : 1945 PHYSICIAN: PIO GARCIA MD ADMIT DATE: 12/24/18/ER Draft Date of Exam:12/24/18 CHEST 1 VIEW, AP/PA ONLY INDICATION: Chest pain and shortness of breath. TIME OF EXAM: 8:51 AM Correlation is made with prior study from 01/14/2017. FINDINGS: Heart is enlarged. There are interstitial changes in both lungs, likely owing to interstitial edema. There is a small left effusion. No pneumothorax is identified. IMPRESSION: Cardiomegaly, interstitial changes and small left effusion, suggestive of CHF. Dictated on workstation # [id number] Dict: 12/24/18913 Trans: 12/24/18916 [id number] Interpreted by: HECTOR POST MD Electronically signed by: Departure Communication (Admissions) Time/Spoke to Admitting Phy: 10:00 Time/Spoke to Consulting Phy: 09:45 Impression Primary Impression: Pneumonia Qualified Codes: J18.1 - Lobar pneumonia, unspecified organism Additional Impressions: Atrial fibrillation with rapid ventricular response Septic shock Disposition: ADMITTED INPATIENT Condition: Stable Admissions Decision to Admit Reason: Admit from ER (General) Decision to Admit/Date: December 24, 2018 Time/Decision to Admit Time: 09:45 Departure-Patient Inst. Referrals: JONATHAN STANFORD MD (PCP/Family) Primary Care Physician PIO GARCIA MD December 24, 2018 10:34
[2018-12-24] MEDS ORDERED: NS IV ONE (11:15)
[2018-12-24] MEDS ORDERED: ONDANSETRON 4 MG/2 ML (SDV) Z0FRAN IV PRN (11:15)
--- NOTE | 2018-12-24 11:30 | NUR ---
Initial visit with pt's son and in ICU family waiting room. Both expressed appreciation for cork wirer touching base and offering emotional support. Pt anticipated to arrive from the ER any time.
--- NOTE | 2018-12-24 11:31 | Consultation-Cardiology ---
HPI-Cardiology Cardiology Consultation Date of Consultation 12/24/18 Date of Admission Time Seen by Provider: 11:27 Indication: tachycardia HPI 73 years old lady with known history of COPD, pulmonary hypertension, reported that she was feeling weak and cold, requiring higher oxygen, EMS were called and brought to the emergency room she was confused initially, currently feeling b janneth. Patient was initially hypotensive and tachycardic, she is in chronic atrial fibrillation. She was started on levofloxacin to support her blood pressure which has improved. She is awake at this point. Denied any chest pain. Still requiring higher oxygen flow. No palpitation. Syncope or near syncopal episodes. Home Medications & Allergies Allergies: Coded Allergies: valacyclovir HCl (Verified Allergy, Unknown, RASH, 08/30/14) Home Medication List Reviewed: Yes [id number] Hx Patient Social History Marital Status: Employed/Student: retired Alcohol Use: Denies Use Recreational Drug Use: No Smoking Status: Former Smoker Former smoker/When Quit: Nov 14, 1999 Recent Foreign Travel: No Recent Infectious Disease Expo: No Recent Hopitalizations: No Immunizations Up To Date Tetanus Booster (TDap): Less than 5yrs Date of Pneumonia Vaccine: Jan 26, 2012 Date of Influenza Vaccine: May 30, 2015 Past Medical History discussed below Family Medical History Significant Family History: COPD Family History: A BLOOD DISEASE 19 FATHER Blood disease Diabetes mellitus G8 BROTHER (BORDERLINE DIABETIC) Hypertension 19 FATHER Psychosocial problem G8 BROTHER (MENTAL RETARDATION) Respiratory disorder 19 MOTHER (COPD) G8 BROTHER (COPD) Review of Systems-General Review of Systems Constitutional: see HPI; No chills, No fever; malaise, weakness EENTM: no symptoms reported Respiratory: cough, short of breath Cardiovascular: No chest pain, No edema; palpitations Gastrointestinal: no symptoms reported; No nausea, No vomiting Genitourinary: no symptoms reported, decreased output : No Musculoskeletal: no symptoms reported Skin: no symptoms reported Psychiatric/Neurological: See HPI All Other Systems Reviewed Negative Unless Noted: Yes Reviewed Test Results Reviewed Test Results Lab Laboratory Tests Test 12/24/18 07:25 12/24/18 07:45 12/24/18 07:50 12/24/18 07:59 Range/Units White Blood Count 17.7 H 4.3-11.0 10^3/uL Red Blood Count 4.17 L 4.35-5.85 10^6/uL Hemoglobin 13.8 11.5-16.0 G/DL Hematocrit 40 35-52 % Mean Corpuscular Volume 95 80-99 FL Mean Corpuscular Hemoglobin 33 25-34 PG Mean Corpuscular Hemoglobin Concent 35 32-36 G/DL Red Cell Distribution Width 14.4 10.0-14.5 % Platelet Count 211 130-400 10^3/uL Mean Platelet Volume 11.3 H 7.4-10.4 FL Neutrophils (%) (Auto) 88 H 42-75 % Lymphocytes (%) (Auto) 4 L 12-44 % Monocytes (%) (Auto) 7 0-12 % Eosinophils (%) (Auto) 0 0-10 % Basophils (%) (Auto) 0 0-10 % Neutrophils # (Auto) 15.7 H 1.8-7.8 X 10^3 Lymphocytes # (Auto) 0.7 L 1.0-4.0 X 10^3 Monocytes # (Auto) 1.3 H 0.0-1.0 X 10^3 Eosinophils # (Auto) 0.1 0.0-0.3 10^3/uL Basophils # (Auto) 0.0 0.0-0.1 10^3/uL Neutrophils % (Manual) 83 % Lymphocytes % (Manual) 4 % Monocytes % (Manual) 7 % Band Neutrophils 6 % Blood Morphology Comment NORMAL Prothrombin Time 42.6 H 12.2-14.7 SEC INR Comment 4.2 H 0.8-1.4 Activated Partial Thromboplast Time 45 H 24-35 SEC Sodium Level 139 135-145 MMOL/L Potassium Level 4.0 3.6-5.0 MMOL/L Chloride Level 103 98-107 MMOL/L Carbon Dioxide Level 26 21-32 MMOL/L Anion Gap 10 5-14 MMOL/L Blood Urea Nitrogen 19 H 7-18 MG/DL Creatinine 1.02 0.60-1.30 MG/DL Estimat Glomerular Filtration Rate 53 BUN/Creatinine Ratio 19 Glucose Level 104 70-105 MG/DL Calcium Level 9.0 8.5-10.1 MG/DL Corrected Calcium 9.1 8.5-10.1 MG/DL Total Bilirubin 0.9 0.1-1.0 MG/DL Aspartate Amino Transf (AST/SGOT) 23 5-34 U/L Alanine Aminotransferase (ALT/SGPT) 14 0-55 U/L Alkaline Phosphatase 83 40-136 U/L Troponin I < 0.028 <0.028 NG/ML Total Protein 6.8 6.4-8.2 GM/DL Albumin 3.9 3.2-4.5 GM/DL Lactic Acid Level 1.16 0.50-2.00 MMOL/L Urine Color YELLOW Urine Clarity CLEAR Urine pH 7 5-9 Urine Specific [place] 1.010 L 1.016-1.022 Urine Protein NEGATIVE NEGATIVE Urine Glucose (UA) NEGATIVE NEGATIVE Urine Ketones NEGATIVE NEGATIVE Urine Nitrite NEGATIVE NEGATIVE Urine Bilirubin NEGATIVE NEGATIVE Urine Urobilinogen NORMAL NORMAL MG/DL Urine Leukocyte Esterase 1+ H NEGATIVE Urine RBC (Auto) NEGATIVE NEGATIVE Urine RBC NONE /HPF Urine WBC 2-5 /HPF Urine Crystals NONE /LPF Urine Bacteria LARGE H /HPF Urine Casts NONE /LPF Urine Mucus NEGATIVE /LPF Urine Culture Indicated CULTURE PENDING Blood Gas Puncture Site RT RAD Blood Gas Patient Temperature 98.9 Arterial Blood pH 7.45 H 7.37-7.43 Arterial Blood Partial Pressure CO2 31 L 35-45 MMHG Arterial Blood Partial Pressure O2 58 L 79-93 MMHG Arterial Blood HCO3 21 L 23-27 MMOL/L Arterial Blood Total CO2 22.3 21.0-31.0 MMOL/L Arterial Blood Oxygen Saturation 90 L 94-100 % Arterial Blood Base Excess -2.0 -2.5-2.5 MMOL/L Wei Test YES-POS Blood Gas Ventilator Setting NO Blood Gas Inspired Oxygen 5L Physical Exam Physical Exam Vital Signs Vital Signs - First Documented 12/24/18 07:16 Temp 98.9 Pulse 136 Resp 22 B/P (MAP) 84/40 (55) Pulse Ox 89 O2 Delivery Nasal Cannula O2 Flow Rate 4.00 Capillary Refill : Less Than 3 Seconds Height, Weight, BMI Height: 5'6.00" Weight: 131lbs. 0.0oz. 59.211800ob; 25.8 BMI Method:Stated General Appearance: WD/WN, Moderate Distress HEENT: PERRL/EOMI, Pharynx Normal Neck: Non Tender, Supple Respiratory: Normal Breath Sounds, Accessory Muscle Use, Crackles, Decreased Breath Sounds, Inspiration Cardiovascular: Systolic Murmur, Irregularly Irregular, Tachycardia Gastrointestinal: Non Tender, Soft Back: Normal Inspection, No CVA Tenderness, No Vertebral Tenderness Extremity: Normal Range of Motion, Non Tender Neurologic/Psychiatric: Alert, Oriented x3, No Motor/Sensory Deficits A/P-Cardiology Admission Diagnosis Acute respiratory failure Hypotensive shock Atrial fibrillation with rapid ventricular response COPD Assessment/Plan Acute respiratory failure with change in mental status. Better at this time responding to oxygen therapy Hypotensive shock, started on IV fluid and Levothroid. Blood pressure is better. More awake at this time. Continue to monitor closely. Atrial fibrillation, history of chronic permanent atrial fibrillation, tachycardic at this time. Cannot tolerate beta blockers or calcium channel blockers due to hypotension. I will use IV digoxin and evaluate tolerance and response. History of severe pulmonary hypertension, planning to repeat echocardiogram [id number] score is 3, yearly risk of stroke without oral anticoagulation is 3.2 percent. She is maintained on Xarelto. 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 Davis. Advanced left ventricular diastolic dysfunction with normal systolic function, ejection fraction 50-55 percent, dilated left atrium, moderate severe MR, PA pressure 70 mmHg. I will reevaluate 2-D echocardiogram. Hyperlipidemia, continue to monitor Hypothyroidism, followed and managed by primary care physician. No changes are recommended. Nonobstructive coronary artery disease per most recent cardiac catheterization August 08, 2015 Insomnia, discussed using occasional Xanax due to anxiety and inability to fall asleep Carotid artery stenosis-history of right carotid stenting done by Dr. James October 2015, followed by Dr. James Clinical Quality Measures DVT/VTE Risk/Contraindication: Risk Factor Score Per Nursin RFS Level Per Nursing on Admit: 4+=Very High LOUISE SPARROW MD December 24, 2018 11:31
[2018-12-24] MEDS ORDERED: DIGOXIN 0.25 MG/ML (LANOXIN) 2 ML AMP IV ONE (11:45)
[2018-12-24] MEDS ORDERED: DIGOXIN 0.25 MG/ML (LANOXIN) 2 ML AMP ONE (12:05)
[2018-12-24] MEDS ORDERED: PANTOPRAZOLE 40 MG (PROTONIX) TAB PO NR (12:15)
--- NOTE | 2018-12-24 12:28 | History & Physical-Hospitalist ---
History of Present Illness HPI/Chief Complaint The patient is 74-year-old white female who noted the onset of coughing with intermittent yellowish sputum production several days ago. She felt more fatigued yesterday. While she did not recall Reiger's her states that she did have shaking chills in the middle of the night's with increased confusion. She was brought to the emergency room where she was significantly hypotensive and minimally responsive. She underwent fluid resuscitation and leave the fat was initiated. She was admitted with diagnosis of presumed septic shock. Upon my arrival she was alert oriented with no recollection of her emergency room visit. She has a history of COPD with pulmonary hypertension and chronic atrial fibrillation with reportedly preserved ventricular function. She had recent problems with anemia 2 months ago was significant enough that it required transfusion. She wasn't aware of an overt history of GI bleeding but had been on aspirin and Xaralto. The former was discontinued and the latter has been continued with no reported melena or bright red blood per rectum. She denies abdominal pain dysphasia or heartburn. She does take pantoprazole daily. She was nor of any past history of known GI bleeding or peptic ulcer disease. She denies any past need for mechanical ventilation or previous admissions for sepsis. She denied increased urinary frequency dysuria or flank pain. Date Seen 12/24/18 Time Seen by a Provider: 12:00 Attending Physician Leonardo Florez MD PCP Anju Stanford MD Referring Physician Date of Admission December 24, 2018 at 10:15 Home Medications & Allergies Home Medications Reviewed patient Home Medication Reconciliation performed by pharmacy medication reconciliations robotics technician and/or nursing. Patients Allergies have been reviewed. Allergies Allergies Coded Allergies valacyclovir HCl (Verified Allergy, Unknown, RASH, 08/30/14) Past Koggykc-Ugljxy-Kpoemk Hx Past Med/Social Hx: Reviewed Nursing Past Med/Soc Hx, Reviewed and Corrections made Patient Social History Marrital Status: Employed/Student: retired Alcohol Use: Denies Use Recreational Drug Use: No Smoking Status: Former Smoker Former Smoker, Quit: December 02, 1999 Recent Foreign Travel: No Contact w/other who traveled: No Recent Hopitalizations: No Recent Infectious Disease Expo: No Immunizations Up To Date Tetanus Booster (TDap): Less than 5yrs Pediatric: Yes Date of Pneumonia Vaccine: Jan 26, 2012 Date of Influenza Vaccine: May 30, 2015 Seasonal Allergies Seasonal Allergies: No Past Medical History Surgeries: Cardiac, Eye Surgery, Vascular Surgery Respiratory: COPD Currently Using CPAP: No Currently Using BIPAP: No Cardiac: Atrial Fibrillation, Chronic Edema/Swelling, High Cholesterol, Hypertension, Peripheral Vascular Reproductive: No Sexually Transmitted Disease: No HIV/AIDS: No Female Reproductive Disorders: Denies Genitourinary: UTI-Chronic Gastrointestinal: Gastroesophageal Reflux Musculoskeletal: Arthritis Endocrine: Hypothyroidsim HEENT: Cataract Loss of Vision: Bilateral Hearing Impairment: Denies History of Blood Disorders: Yes (ANEMIA--) Adverse Reaction to Blood [place]: No Family History Reviewed Nursing Family Hx A BLOOD DISEASE 19 FATHER Blood disease Diabetes mellitus G8 BROTHER (BORDERLINE DIABETIC) Hypertension 19 FATHER Psychosocial problem G8 BROTHER (MENTAL RETARDATION) Respiratory disorder 19 MOTHER (COPD) G8 BROTHER (COPD) COPD Review of Systems Constitutional: see HPI, chills; No diaphoresis, No dizziness, No fever, No malaise; weakness; No weight gain, No weight loss, No other Respiratory: cough, dyspnea on exertion; No hemoptysis, No orthopnea, No phlegm; short of breath; No stridor, No wheezing, No other Cardiovascular: see HPI; No chest pain, No edema, No Hx of Intervention, No palpitations, No syncope, No vascular heart diseas, No other Gastrointestinal: see HPI Genitourinary: see HPI Physical Exam Physical Exam Vital Signs Vital Signs - First Documented 12/24/18 07:16 Temp 98.9 Pulse 136 Resp 22 B/P (MAP) 84/40 (55) Pulse Ox 89 O2 Delivery Nasal Cannula O2 Flow Rate 4.00 Capillary Refill : Less Than 3 Seconds Height, Weight, BMI Height: 5'6.00" Weight: 131lbs. 0.0oz. [id number]; 25.8 BMI Method:Stated General Appearance: No Apparent Distress, WD/WN HEENT: PERRL/EOMI Neck: Full Range of Motion, Normal Inspection, Non Tender Respiratory: Chest Non Tender, Normal Breath Sounds, No Accessory Muscle Use, No Respiratory Distress, Other (I basilar rales are noted left greater than right questionable vesicular breath sounds on the left there is no egophony noted) Cardiovascular: No Edema, No Gallop, No JVD, No Murmur, Irregularly Irregular Gastrointestinal: Normal Bowel Sounds, No Organomegaly, No Pulsatile Mass, Non Tender, Soft Extremity: Normal Capillary Refill, Normal Inspection, Normal Range of Motion, Non Tender, No Calf Tenderness, No Pedal Edema Neurologic/Psychiatric: Alert, No Motor/Sensory Deficits, Normal Mood/Affect Skin: Warm/Dry, Pallor Results Results/Procedures Labs Laboratory Tests 12/24/18 07:25 Patient resulted labs reviewed. Assessment/Plan Admission Diagnosis A/P 1. Likely septic shock probably respiratory etiology possible left lower lobe pneumonia. Patient is responding to fluid resuscitation and levo fed antibiotics have been initiated initial lactic acid was normal at a little over 1. We will repeat PA and lateral chest x-ray tomorrow and we may be able to taper off of pressor support continuing IV fluids. 2. Persistent atrial fibrillation Dr. Carrasco is initiating digoxin for rate control considering initial hypotension for now we'll hold the diltiazem. Echocardiogram is pending. 3. History of COPD with pulmonary hypertension personally due to past smoking history continue supplemental oxygen. 4. History of recent anemia currently resolved but significant enough that did require blood transfusion per the patient's report. Strongly suspect GI bleed considering the patient was on aspirin and Xaralto. Aspirin has been stopped will hold anticoagulant therapy today defer to Dr. Carrasco tomorrow and continue pantoprazole. Admission Status: Inpatient Order (span 2 midnights) Reason for Inpatient Admission: See admission diagnosis Critical Care Critically Ill Patient Clinical Quality Measures DVT/VTE Risk/Contraindication: Risk Factor Score Per Nursin RFS Level Per Nursing on Admit: 4+=Very High Copy Copies To 1: ANJU STANFORD MD, MARK D MD December 24, 2018 12:28
--- NOTE | 2018-12-24 12:47 | Pulmonary Consultation ---
History of Present Illness History of Present Illness Date of Consultation 12/24/18 12:41 Date of Admission Reason for Visit: tachycardia History of Present Illness 74yo with hx of COPD, and pulmonary HTN presented to ED secondary to worsening SOB, lethargy, and strong productive cough of yellow sputum over the last several days. pt was found to be hypotensive in the ED and lethargic. No prior hx like this in the past. Pt was give Abx, and IVF in the ED and transferred to ICU for close monitoring. Allergies and Home Medications Allergies Coded Allergies: valacyclovir HCl (Verified Allergy, Unknown, RASH, 08/30/14) Home Medications Acetaminophen 500 Mg Tablet, 500 MG PO Q4H PRN for PAIN-MILD, (Reported) Albuterol Sulfate 2.5 Mg/3 Ml Vial.neb, 2.5 MG NEB EVERY 4-6 HOURS PRN for SHORTNESS OF BREATH, (Reported) Albuterol Sulfate 18 Gm Hfa.aer.ad, 2 PUFF INH QID PRN for SHORTNESS OF BREATH, (Reported) Atorvastatin Calcium 20 Mg Tablet, 20 MG PO HS, (Reported) Budesonide/Formoterol Fumarate 10.2 Gm Hfa.aer.ad, 2 PUFF IH BID, (Reported) Diltiazem HCl 300 Mg Cap.er.24h, 300 MG PO DAILY, (Reported) Docusate Sodium 100 Mg Capsule, 100 MG PO BID PRN for CONSTIPATION-1ST LINE, (Reported) Ferrous Sulfate 325 Mg Tablet, 325 MG PO BID, (Reported) Furosemide 40 Mg Tablet, 40 MG PO 0800,1500, (Reported) Levothyroxine Sodium 25 Mcg Tablet, 25 MCG PO DAILY, (Reported) Metoprolol Succinate 50 Mg Tab.er.24h, 50 MG PO HS, (Reported) Montelukast Sodium 10 Mg Tablet, 10 MG PO HS, (Reported) Multivitamin 1 Each Tablet, 1 TAB PO DAILY, (Reported) [place]-3 Fatty Acids/Fish Oil 1 Each Capsule, 1,000 MG PO DAILY, (Reported) Pantoprazole Sodium 40 Mg Tablet.dr, 40 MG PO 1800, (Reported) Potassium Chloride 20 Meq Tab.er.prt, 20 MEQ PO BID, (Reported) Rivaroxaban 20 Mg Tablet, 20 MG PO 1800, (Reported) Sildenafil Citrate 20 Mg Tablet, 20 MG PO TID, (Reported) Sodium Chloride 44 Ml [place], 1-2 SPRAYS NS TID PRN for DRY NOSE, (Reported) Sodium Chloride/Aloe Vera 22 Ml [place], 1 SPRAY NA BID PRN for DRY NOSE, (Reported) Tiotropium [place] 1 Inh Aerp, 1 CAP IH DAILY, (Reported) Past Demxvia-Vacjpj-Nycgrb Hx Past Med/Social Hx: Reviewed Nursing Past Med/Soc Hx, Reviewed and Corrections made Patient Social History Alcohol Use: Denies Use Recreational Drug Use: No Smoking Status: Former Smoker Former Smoker, Quit: December 02, 1999 Recent Foreign Travel: No Contact w/Someone Who Travel: No Recent Infectious Disease Expo: No Recent Hopitalizations: No Physical Abuse: No Sexual Abuse: No Immunizations Up To Date Tetanus Booster (TDap): Less than 5yrs PED Vaccines UTD: Yes Date of Pneumonia Vaccine: Jan 26, 2012 Date of Influenza Vaccine: May 30, 2015 Seasonal Allergies Seasonal Allergies: No Past Medical History Surgeries: Yes (t&a, cataract removal, lumpectomy) Cardiac, Eye Surgery, Vascular Surgery Respiratory: Yes (PULMONARY HTN; CONTINUOUS HOME O2 5L/NC IN DAY, 6L/NC AT NIGHT ) COPD, Emphysema Currently Using CPAP: No Currently Using BIPAP: No Cardiac: Yes (CHF, RAYNAUD'S,CARDIAC CATH--NO INTERVENTION,RIGHT CAROTID STENT) Atrial Fibrillation, Chronic Edema/Swelling, High Cholesterol, Hypertension, Peripheral Vascular Neurological: No Reproductive Disorders: No Female Reproductive Disorders: Denies Sexually Transmitted Disease: No HIV/AIDS: No UTI-Chronic Gastrointestinal: Yes Gastroesophageal Reflux Musculoskeletal: Yes (RAYNAUD'S ) Arthritis Endocrine: Yes Hypothyroidsim Cataract Loss of Vision: Bilateral Hearing Impairment: Denies Cancer: No Psychosocial: No Integumentary: No Blood Disorders: Yes (ANEMIA--) Adverse Reaction/Blood Tranf: No Family Medical History Reviewed Nursing Family Hx A BLOOD DISEASE 19 FATHER Blood disease Diabetes mellitus G8 BROTHER (BORDERLINE DIABETIC) Hypertension 19 FATHER Psychosocial problem G8 BROTHER (MENTAL RETARDATION) Respiratory disorder 19 MOTHER (COPD) G8 BROTHER (COPD) COPD Review of Systems Constitutional: Weakness, Malaise Eyes: No: Pain, Vision change, Conjunctivae inflammation, Eyelid inflammation, Other, Redness ENT: Nose congestion; No: Ear pain, Ear discharge, Nose pain, Nose discharge, Mouth pain, Mouth swelling, Throat pain, Throat swelling, Other Respiratory: Cough, Shortness of breath, SOB with excertion, Sputum Sepsis Event Evaluation Height, Weight, BMI Height: 5'6.00" Weight: 131lbs. 0.0oz. 59.318727qe; 25.8 BMI Method:Stated Exam Exam Vital Signs Date Time Temp Pulse Resp B/P (MAP) Pulse Ox O2 Delivery O2 Flow Rate FiO2 12/24/18 12:00 104 29 121/75 (90) 91 OxyMask 5.00 12/24/18 12:00 98 OxyMask 4.00 12/24/18 11:45 111 24 127/81 (96) 92 OxyMask 5.00 12/24/18 11:30 104 29 107/79 (88) 92 OxyMask 5.00 12/24/18 11:15 120 14 108/71 (83) 98 OxyMask 5.00 12/24/18 11:00 114 28 113/78 (90) 98 OxyMask 5.00 12/24/18 10:58 121 12/24/18 10:20 118 22 122/74 (90) 95 Nasal Cannula 5.00 12/24/18 07:31 95 Nasal Cannula 5.00 12/24/18 07:16 98.9 136 22 84/40 (55) 89 Nasal Cannula 4.00 12/24/18 07:16 89 Nasal Cannula 4.00 Height & Weight Height: 5'6.00" Weight: 131lbs. 0.0oz. 59.979541vs; 25.8 BMI Method:Stated General Appearance: No Apparent Distress, WD/WN HEENT: PERRL/EOMI Neck: Full Range of Motion, Normal Inspection, Non Tender Respiratory: Chest Non Tender, Normal Breath Sounds, No Accessory Muscle Use, No Respiratory Distress, Other (I basilar rales are noted left greater than right questionable vesicular breath sounds on the left there is no egophony noted) Cardiovascular: No Edema, No Gallop, No JVD, No Murmur, Irregularly Irregular Capillary Refill: Less Than 3 Seconds Extremity: Normal Capillary Refill, Normal Inspection, Normal Range of Motion, Non Tender, No Calf Tenderness, No Pedal Edema Neurologic/Psychiatric: Alert, No Motor/Sensory Deficits, Normal Mood/Affect Skin: Warm/Dry, Pallor Results Lab Laboratory Tests 12/24/18 07:25 Assessment/Plan Assessment/Plan Acute respiratory distress Hypotension r/o Septic shock Afib RVR -Cardiology following -Cardizem COPD PUlmonary hypertension per echo AMBROSIO KUMAR DO December 24, 2018 12:47
[2018-12-24] MEDS ORDERED: FERR-84 PO (13:01)
[2018-12-24] MEDS ORDERED: POTA20TA15 PO (13:01)
[2018-12-24] MEDS ORDERED: SODI22SP (13:01)
[2018-12-24] MEDS ORDERED: OMEG-77 PO (13:01)
[2018-12-24] MEDS ORDERED: DOCU-250 PO (13:01)
[2018-12-24] MEDS ORDERED: FURO40TA4 PO (13:01)
[2018-12-24] MEDS ORDERED: ACET-168 PO (13:01)
[2018-12-24] MEDS ORDERED: ALBU18HF2 INH (13:01)
[2018-12-24] MEDS ORDERED: MULT1TAB69 PO (13:01)
[2018-12-24] MEDS ORDERED: DILT300C52 PO (13:01)
[2018-12-24] MEDS ORDERED: SODI45SP4 NS (13:01)
--- NOTE | 2018-12-24 13:05 | NUR ---
WENT OVER THE EXT MED HX WITH THE PATIENT AND SHE VERIFIED HOW SHE TAKES EACH MEDICATION. SHE HAS ONLY TAKEN HER TYROID MEDICATION TODAY. SHE TAKES TYLENOL PRN, FISH OIL, MTV, AND NASAL SPRAYS OTC.
[2018-12-24] MEDS ORDERED: RT-ALBUTEROL/IPRATROPIUM 3 ML (DUONEB) VIAL INH PRN (14:15)
--- NOTE | 2018-12-24 16:39 | Consultation (Surgery) ---
History of Present Illness History of Present Illness Patient Consulted On(deisi/time) 12/24/18 08:04 Date Seen by Provider: December 24, 2018 Time Seen by Provider: 08:04 Reason for Visit: tachycardia History of Present Illness consult requested by Dr. Martinez for central line placement for hypotension patient is a 73-year-old female brought in by EMS. She states that she's been ill since yesterday evening. She just overall wasn't feeling well she was having difficulty in breathing her oxygen saturation had dropped and the 80 percent range. She was having some mentation issues. Slight productive cough. She was found to be hypotensive with systolic blood pressure in the 80s. Patient some weakness and fatigue. She denies any fever sweats chills or chest pain. Patient does states she is on blood thinner. Patient needing central line placed for starting Levophed. she denies any abdominal pain. No blood in stools. Allergies and Home Medications Allergies Coded Allergies: valacyclovir HCl (Verified Allergy, Unknown, RASH, 08/30/14) Home Medications Acetaminophen 500 Mg Tablet, 500 MG PO Q4H PRN for PAIN-MILD, (Reported) Albuterol Sulfate 2.5 Mg/3 Ml Vial.neb, 2.5 MG NEB EVERY 4-6 HOURS PRN for SHORTNESS OF BREATH, (Reported) Albuterol Sulfate 18 Gm Hfa.aer.ad, 2 PUFF INH QID PRN for SHORTNESS OF BREATH, (Reported) Atorvastatin Calcium 20 Mg Tablet, 20 MG PO HS, (Reported) Budesonide/Formoterol Fumarate 10.2 Gm Hfa.aer.ad, 2 PUFF IH BID, (Reported) Diltiazem HCl 300 Mg Cap.er.24h, 300 MG PO DAILY, (Reported) Docusate Sodium 100 Mg Capsule, 100 MG PO BID PRN for CONSTIPATION-1ST LINE, (Reported) Ferrous Sulfate 325 Mg Tablet, 325 MG PO BID, (Reported) Furosemide 40 Mg Tablet, 40 MG PO 0800,1500, (Reported) Levothyroxine Sodium 25 Mcg Tablet, 25 MCG PO DAILY, (Reported) Metoprolol Succinate 50 Mg Tab.er.24h, 50 MG PO HS, (Reported) Montelukast Sodium 10 Mg Tablet, 10 MG PO HS, (Reported) Multivitamin 1 Each Tablet, 1 TAB PO DAILY, (Reported) [place]-3 Fatty Acids/Fish Oil 1 Each Capsule, 1,000 MG PO DAILY, (Reported) Pantoprazole Sodium 40 Mg Tablet.dr, 40 MG PO 1800, (Reported) Potassium Chloride 20 Meq Tab.er.prt, 20 MEQ PO BID, (Reported) Rivaroxaban 20 Mg Tablet, 20 MG PO 1800, (Reported) Sildenafil Citrate 20 Mg Tablet, 20 MG PO TID, (Reported) Sodium Chloride 44 Ml [place], 1-2 SPRAYS NS TID PRN for DRY NOSE, (Reported) Sodium Chloride/Aloe Vera 22 Ml [place], 1 SPRAY NA BID PRN for DRY NOSE, (Reported) Tiotropium [place] 1 Inh Aerp, 1 CAP IH DAILY, (Reported) Patient Home Medication List Home Medication List Reviewed: Yes Past Uvddzok-Lhdyna-Cafmiv Hx Patient Social History Alcohol Use: Denies Use Recreational Drug Use: No Smoking Status: Former Smoker Former Smoker, Quit: December 02, 1999 Recent Foreign Travel: No Contact w/Someone Who Travel: No Recent Infectious Disease Expo: No Recent Hopitalizations: No Immunizations Up To Date Tetanus Booster (TDap): Less than 5yrs PED Vaccines UTD: Yes Date of Pneumonia Vaccine: Jan 26, 2012 Date of Influenza Vaccine: May 30, 2015 Seasonal Allergies Seasonal Allergies: No Surgeries History of Surgeries: Yes (t&a, cataract removal, lumpectomy) Surgeries: Cardiac, Eye Surgery, Vascular Surgery Respiratory History of Respiratory Disorde: Yes (PULMONARY HTN; CONTINUOUS HOME O2 5L/NC IN DAY, 6L/NC AT NIGHT ) Respiratory Disorders: COPD, Emphysema Cardiovascular History of Cardiac Disorders: Yes (CHF, RAYNAUD'S,CARDIAC CATH--NO INTERVENTION,RIGHT CAROTID STENT) Cardiac Disorders: Atrial Fibrillation, Chronic Edema/Swelling, High Cholesterol, Hypertension, Peripheral Vascular Neurological History of Neurological Disord: No Reproductive System Hx Reproductive Disorders: No Sexually Transmitted Disease: No HIV/AIDS: No Female Reproductive Disorders: Denies Genitourinary Genitourinary Disorders: UTI-Chronic Gastrointestinal History of Gastrointestinal Di: Yes Gastrointestinal Disorders: Gastroesophageal Reflux Musculoskeletal History of Musculoskeletal Dis: Yes (RAYNAUD'S ) Musculoskeletal Disorders: Arthritis Endocrine History of Endocrine Disorders: Yes Endocrine Disorders: Hypothyroidsim HEENT HEENT Disorders: Cataract Loss of Vision: Bilateral Hearing Impairment: Denies Cancer History of Cancer: No Psychosocial History of Psychiatric Problem: No Integumentary History of Skin or Integumenta: No Blood Transfusions History of Blood Disorders: Yes (ANEMIA--) Adverse Reaction to a Blood Tr: No Family Medical History Significant Family History: COPD Family Medial History: A BLOOD DISEASE 19 FATHER Blood disease Diabetes mellitus G8 BROTHER (BORDERLINE DIABETIC) Hypertension 19 FATHER Psychosocial problem G8 BROTHER (MENTAL RETARDATION) Respiratory disorder 19 MOTHER (COPD) G8 BROTHER (COPD) Review of Systems-General Constitutional: weakness EENTM: no symptoms reported Respiratory: see HPI Cardiovascular: no symptoms reported Gastrointestinal: no symptoms reported Genitourinary: no symptoms reported Musculoskeletal: no symptoms reported Skin: no symptoms reported Psychiatric/Neurological: No Symptoms Reported Physical Exam-General Problems Physical Exam Vital Signs Vital Signs - First Documented 12/24/18 07:16 Temp 98.9 Pulse 136 Resp 22 B/P (MAP) 84/40 (55) Pulse Ox 89 O2 Delivery Nasal Cannula O2 Flow Rate 4.00 Capillary Refill : Less Than 3 Seconds General Appearance: mild distress HEENT: PERRL/EOMI, normal ENT inspection Neck: non-tender, full range of motion, supple, normal inspection Respiratory: chest non-tender, respiratory distress Gastrointestinal: non tender, soft, no organomegaly, no pulsatile mass Rectal: deferred Back: no CVA tenderness Extremities: non-tender, normal inspection, no pedal edema Neurologic/Psychiatric: machine tailer II-XII nml as tested, no motor/sensory deficits, alert, normal mood/affect, oriented x 3 Skin: normal color, warm/dry Lymphatic: no adenopathy Data Review Labs Laboratory Tests 12/24/18 07:25: White Blood Count 17.7H, Red Blood Count 4.17L, Hemoglobin 13.8, Hematocrit 40, Mean Corpuscular Volume 95, Mean Corpuscular Hemoglobin 33, Mean Corpuscular Hemoglobin Concent 35, Red Cell Distribution Width 14.4, Platelet Count 211, Mean Platelet Volume 11.3H, Neutrophils (%) (Auto) 88H, Lymphocytes (%) (Auto) 4L, Monocytes (%) (Auto) 7, Eosinophils (%) (Auto) 0, Basophils (%) (Auto) 0, Neutrophils # (Auto) 15.7H, Lymphocytes # (Auto) 0.7L, Monocytes # (Auto) 1.3H, Eosinophils # (Auto) 0.1, Basophils # (Auto) 0.0, Neutrophils % (Manual) 83, Lymphocytes % (Manual) 4, Monocytes % (Manual) 7, Band Neutrophils 6, Blood Morphology Comment NORMAL, Prothrombin Time 42.6H, INR Comment 4.2H, Activated Partial Thromboplast Time 45H, Sodium Level 139, Potassium Level 4.0, Chloride Level 103, Carbon Dioxide Level 26, Anion Gap 10, Blood Urea Nitrogen 19H, Creatinine 1.02, Estimat Glomerular Filtration Rate 53, BUN/Creatinine Ratio 19, Glucose Level 104, Calcium Level 9.0, Corrected Calcium 9.1, Total Bilirubin 0.9, Aspartate Amino Transf (AST/SGOT) 23, Alanine Aminotransferase (ALT/SGPT) 14, Alkaline Phosphatase 83, Troponin I < 0.028, Total Protein 6.8, Albumin 3.9, Thyroid Stimulating Hormone (TSH) 5.43H 12/24/18 07:45: Lactic Acid Level 1.16 12/24/18 07:50: Urine Color YELLOW, Urine Clarity CLEAR, Urine pH 7, Urine Specific [place] 1.010L, Urine Protein NEGATIVE, Urine Glucose (UA) NEGATIVE, Urine Ketones NEGATIVE, Urine Nitrite NEGATIVE, Urine Bilirubin NEGATIVE, Urine Urobilinogen NORMAL, Urine Leukocyte Esterase 1+H, Urine RBC (Auto) NEGATIVE, Urine RBC NONE, Urine WBC 2-5, Urine Crystals NONE, Urine Bacteria LARGEH, Urine Casts NONE, Urine Mucus NEGATIVE, Urine Culture Indicated CULTURE PENDING 12/24/18 07:59: Blood Gas Puncture Site RT RAD, Blood Gas Patient Temperature 98.9, Arterial Blood pH 7.45H, Arterial Blood Partial Pressure CO2 31L, Arterial Blood Partial Pressure O2 58L, Arterial Blood HCO3 21L, Arterial Blood Total CO2 22.3, Arterial Blood Oxygen Saturation 90L, Arterial Blood Base Excess -2.0, Wei Test YES-POS, Blood Gas Ventilator Setting NO, Blood Gas Inspired Oxygen 5L Assessment/Plan Assessment/Plan Assessment/Plan hypotension acute respiratory distress Rule out sepsis atrial fibrillation patient was discussed risk and benefits of having central line placed. Patient wishes to proceed. Patient is on blood thinner and discussed placing in the r ight femoral vein being lost risk for complication due to blood thinner. She understands and wishes to proceed see separate note for central line placement. Will sign off call if needed. Clinical Quality Measures DVT/VTE Risk/Contraindication: Risk Factor Score Per Nursin RFS Level Per Nursing on Admit: 4+=Very High HERLINDA MANZANARES DO December 24, 2018 16:39
[2018-12-24] MEDS: PIPERACILLIN/TAZO 4.5 GM/NS 100 ML IV SCH ×2 (16:45)
[2018-12-24] MEDS: RT-ALBUTEROL/IPRATROPIUM 3 ML (DUONEB) VIAL INH SCH ×2 (18:38→22:08)
[2018-12-24] MEDS: ATORVASTATIN 20 MG (LIPITOR) TABLET PO SCH (21:52)
[2018-12-25] VITALS (13 sets, daily range): BP systolic 101–143; BP diastolic 56–109
[2018-12-25] MEDS: PIPERACILLIN/TAZO 4.5 GM/NS 100 ML IV SCH ×6 (00:03→16:40)
--- NOTE | 2018-12-25 01:01 | OPERATIVE REPORT ---
DATE OF SERVICE: 12/24/2018 PREPROCEDURE DIAGNOSIS: Hypotension, rule out sepsis. POSTPROCEDURE DIAGNOSIS: Hypotension, rule out sepsis. PROCEDURE: Right femoral vein ultrasound-guided central line placement. SURGEON: Herlinda Soria DO. ANESTHESIA: 1% lidocaine 5 mL. ESTIMATED BLOOD LOSS: Minimal. COMPLICATIONS: None. INDICATIONS: The patient is a 73-year-old female who was brought into the Emergency Department and found to be hypotensive. She understands risks and benefits of having central line placed and wished to proceed. DESCRIPTION OF PROCEDURE: The right femoral vein area was prepped and draped in a sterile fashion. Using ultrasound, the right femoral vein was located. Local anesthetic was infiltrated around it. The right femoral vein was then accessed under guidance of the ultrasound. Dark nonpulsatile blood was withdrawn. The guidewire was inserted through the needle and the needle was removed. An 11 blade scalpel was used to make a skin incision at the insertion point. A dilator was then advanced over the guidewire and removed. The triple lumen catheter was then advanced over the guidewire and the wire was then removed. All ports were flushed and accessed without difficulty. The central line was secured in the usual fashion using 3-0 silk suture. The area was then washed and dried and sterile bandage was applied. The patient tolerated the procedure well without any complications. Job ID: [id number] DocumentID: [id number] Dictated Date: 12/24/2018 16:47:58 [employer] Marker Designer Date: 12/25/2018 01:00:39 Dictated By: HERLINDA SORIA DO
[2018-12-25] MEDS ORDERED: ACETAMINOPHEN 325 MG TABLET PO ONE (02:00)
[2018-12-25] MEDS: RT-ALBUTEROL/IPRATROPIUM 3 ML (DUONEB) VIAL INH SCH ×6 (02:21→21:48)
[2018-12-25] MEDS: NS IV 1000 ML 1,000 ML IV SCH (03:03)
[2018-12-25 03:10] LABS: BASOPHILS % (AUTO) 0 % (0-10); EOSINOPHILS # (AUTO) 0.3 10^3/uL (0.0-0.3); EOSINOPHILS % (AUTO) 2 % (0-10); HEMATOCRIT 38 % (35-52); HEMOGLOBIN 12.4 G/DL (11.5-16.0); LYMPHOCYTES # (AUTO) 0.7 X 10^3 (1.0-4.0); LYMPHOCYTES % (AUTO) 6 % (12-44); MEAN CORPUSCULAR HEMOGLOBIN 32 PG (25-34); MEAN CORPUSCULAR HGB CONC 33 G/DL (32-36); MEAN CORPUSCULAR VOLUME 98 FL (80-99); MEAN PLATELET VOLUME 10.8 FL (7.4-10.4); MONOCYTES # (AUTO) 0.9 X 10^3 (0.0-1.0); MONOCYTES % (AUTO) 8 % (0-12); NEUTROPHILS # (AUTO) 9.3 X 10^3 (1.8-7.8); NEUTROPHILS % (AUTO) 83 % (42-75); PLATELET COUNT 175 10^3/uL (130-400); RED CELL DISTRIBUTION WIDTH 14.5 % (10.0-14.5); WHITE BLOOD COUNT 11.1 10^3/uL (4.3-11.0)
[2018-12-25 03:30] LABS: ALANINE AMINOTRANSFERASE 26 U/L (0-55); ALBUMIN 3.2 GM/DL (3.2-4.5); ALKALINE PHOSPHATASE 76 U/L (40-136); BILIRUBIN,TOTAL 0.8 MG/DL (0.1-1.0); BUN/CREATININE RATIO 12; CALCIUM 8.2 MG/DL (8.5-10.1); CARBON DIOXIDE 20 MMOL/L (21-32); CHLORIDE 113 MMOL/L (98-107); CREATININE SERUM 0.74 MG/DL (0.60-1.30); GFR ESTIMATED > 60; GLUCOSE 111 MG/DL (70-105); MAGNESIUM 1.8 MG/DL (1.8-2.4); PHOSPHORUS 2.7 MG/DL (2.3-4.7); POTASSIUM 3.4 MMOL/L (3.6-5.0); SODIUM 146 MMOL/L (135-145); TOTAL PROTEIN 5.7 GM/DL (6.4-8.2)
--- NOTE | 2018-12-25 04:23 | Pulmonary Progress Note ---
Subjective Time Seen by a Provider: 04:24 Subjective/Events-last exam Pt is off Levophed and her HR is better controlled. Sepsis Event Evaluation Height, Weight, BMI Height: 5'6.00" Weight: 131lbs. 0.0oz. [id number]; 25.8 BMI Method:Stated Focused Exam Lactate Level 12/24/18 07:45: Lactic Acid Level 1.16 Exam Exam Vital Signs Date Time Temp Pulse Resp B/P (MAP) Pulse Ox O2 Delivery O2 Flow Rate FiO2 12/25/18 02:22 92 OxyMask 6.00 12/25/18 02:00 107 21 131/84 (100) 100 OxyMask 6.00 12/25/18 01:00 103 20 140/91 (107) 100 OxyMask 6.00 12/25/18 01:00 103 12/25/18 00:17 OxyMask 6.00 12/25/18 00:09 OxyMask 10.00 12/25/18 00:09 96.4 12/25/18 00:00 9 20 132/85 (101) 92 OxyMask 7.00 12/24/18 23:00 97 24 123/75 (91) 92 OxyMask 7.00 12/24/18 22:09 94 OxyMask 10.00 12/24/18 22:00 101 16 139/88 (105) 97 OxyMask 7.00 12/24/18 21:00 92 23 121/68 (85) 100 OxyMask 7.00 12/24/18 20:27 OxyMask 7.00 12/24/18 20:00 OxyMask 6.00 12/24/18 20:00 86 16 111/66 (81) 91 OxyMask 5.00 12/24/18 20:00 98.2 12/24/18 19:00 102 12/24/18 19:00 100 25 102/57 (72) 95 OxyMask 5.00 12/24/18 18:39 92 Nasal Cannula 3.50 12/24/18 18:00 81 26 104/67 (79) OxyMask 5.00 12/24/18 17:00 94 27 87/55 (66) OxyMask 5.00 12/24/18 16:00 98 OxyMask 4.00 5/24/19 16:00 98.2 12/24/18 16:00 101 16 111/52 (71) 92 OxyMask 5.00 12/24/18 15:00 97 16 101/69 (80) 97 OxyMask 5.00 12/24/18 14:55 96 Nasal Cannula 3.50 12/24/18 14:00 103 27 119/69 (86) 98 OxyMask 5.00 12/24/18 13:18 101 12/24/18 13:00 107 20 112/76 (88) 98 OxyMask 5.00 12/24/18 12:39 98 OxyMask 4.00 12/24/18 12:00 104 29 121/75 (90) 91 OxyMask 5.00 12/24/18 12:00 98 OxyMask 4.00 12/24/18 11:45 111 24 127/81 (96) 92 OxyMask 5.00 12/24/18 11:30 104 29 107/79 (88) 92 OxyMask 5.00 12/24/18 11:15 120 14 108/71 (83) 98 OxyMask 5.00 12/24/18 11:00 114 28 113/78 (90) 98 OxyMask 5.00 12/24/18 11:00 97.9 12/24/18 10:58 121 12/24/18 10:20 118 22 122/74 (90) 95 Nasal Cannula 5.00 12/24/18 07:31 95 Nasal Cannula 5.00 12/24/18 07:16 98.9 136 22 84/40 (55) 89 Nasal Cannula 4.00 12/24/18 07:16 89 Nasal Cannula 4.00 I & O 12/25/18 07:00 Intake Total 5440 ml Output Total 2750 ml Balance 2690 ml Height & Weight Height: 5'6.00" Weight: 131lbs. 0.0oz. 59.598842fi; 25.8 BMI Method:Stated General Appearance: WD/WN, Mild Distress HEENT: PERRL/EOMI, Pharynx Normal Neck: Non Tender, Supple Respiratory: Accessory Muscle Use, Decreased Breath Sounds Cardiovascular: Irregularly Irregular, Tachycardia Capillary Refill: Less Than 3 Seconds Gastrointestinal: non tender, soft, no organomegaly, no pulsatile mass Extremity: Normal Range of Motion, Non Tender Neurologic/Psychiatric: Alert, Oriented x3, No Motor/Sensory Deficits Skin: Warm/Dry, Pallor Results Lab Laboratory Tests 12/24/18 07:25 12/25/18 03:02 Assessment/Plan Assessment/Plan Acute respiratory distress -Pt is using oxy mask Pneumonia - present on admission -Continue Zosyn Hypotension - improved with IVF -Levophed is now off Afib RVR - controlled -Cardiology following -digoxin Severe oxygen dependent COPDAE -SVNS -Solumedrol Pulmonary edema -Give lasix IV x 1 -SL IVF Hypokalemia -Replace Hypothyroid -Pt is on Synthroid -Will defer to PCP Group 2 Pulmonary hypertension Advanced diastolic dysfunction EF 50-55% -Echo shows-- ejection fraction 50-55 percent, dilated left atrium, moderate severe MR, PA pressure 70 mmHg AMBROSIO KUMAR DO December 25, 2018 04:23
[2018-12-25] MEDS ORDERED: KCL 10 MEQ TAB (MICRO K) PO ONE (04:30)
[2018-12-25] MEDS ORDERED: FUROSEMIDE 40 MG/4 ML INJ (LASIX) IVP ONE (04:30)
[2018-12-25] MEDS: POTASSIUM CL 10MEQ/50ML IVPB 50 ML IV SCH ×3 (05:51→07:35)
[2018-12-25] MEDS ORDERED: methylPREDNISolone 40 MG/ML (Solu-MEDROL) VIAL IV SCH (06:00)
[2018-12-25] MEDS: LEVOTHYROXINE 25 MCG (LEVOTHROID) TAB PO SCH (06:51)
[2018-12-25] MEDS: PANTOPRAZOLE 40 MG (PROTONIX) TAB PO SCH (07:38)
--- NOTE | 2018-12-25 08:06 | Cardiology Progress Note ---
Subjective Date Seen by Provider: December 25, 2018 Time Seen by Provider: 08:03 Subjective/Events-last exam patient is sitting in bed, breathing better, feeling better. Heart rate is still fast, she is off pressors Review of Systems General: No Chills, No Night Sweats; Fatigue; No Malaise, No Appetite, No Other HEENT: No Head Aches, No Visual Changes, No Eye Pain, No Ear Pain, No Dysphasia, No Sinus Congestion, No Post Nasal Drip, No Sore Throat, No Other Pulmonary: Dyspnea; No Cough, No Pleuritic Chest Pain, No Other Cardiovascular: No: Chest Pain, Palpitations, Orthopnea, Paroxysmal Noc. Dyspnea, Edema, Lt Headedness, Other Focused Exam Lactate Level 12/24/18 07:45: Lactic Acid Level 1.16 Objective-Cardiology Exam Last Set of Vital Signs Vital Signs 12/25/18 12/25/18 12/25/18 00:09 07:00 07:08 Temp 96.4 Pulse 118 Resp 15 B/P (MAP) 137/95 (109) Pulse Ox 95 O2 Delivery OxyMask O2 Flow Rate 6.00 Capillary Refill : Less Than 3 Seconds I&O Intake and Output 12/25/18 00:00 Intake Total 5190 ml Output Total 2400 ml Balance 2790 ml Intake Oral 1950 ml IV Total 3240 ml Output Urine Total 2400 ml # Bowel Movements 1 Daily Weight Change No General: Alert, Oriented X3, Cooperative HEENT: Atraumatic, PERRLA Neck: Supple, No JVD, No Thyromegaly Lungs: Normal Air Movement, Other (bilateral rhonchi) Heart: Normal S1, Normal S2, No Murmurs, Other (atrial fibrillation, tachycardia) Abdomen: Normal Bowel Sounds, Soft, No Tenderness, No Hepatosplenomegaly, No Masses Extremities: No Clubbing, No Cyanosis, No Edema, Normal Pulses, No Tenderness/Swelling Skin: No Rashes, No Breakdown, No Significant Lesion Neuro: Normal Gait, Normal Speech, Strength at 5/5 X4 Ext, Normal Tone, Sensation Intact Psych/Mental Status: Mental Status NL, Mood NL Results Lab Laboratory Tests 12/25/18 03:02 A/P-Cardiology Admission Diagnosis Acute respiratory failure Hypotensive shock Atrial fibrillation with rapid ventricular response COPD Assessment/Plan Status post Acute respiratory failure better at this time back to baseline, still requiring high oxygen flow. Status post hypotensive shock, responded to pressors and IV fluid, currently off pressors. Chronic atrial fibrillation, tachycardia, Cardizem was on hold, I will restart the medication monitor tolerance and response, stopped digoxin for now. Congestive heart failure, acute on chronic left ventricular diastolic dysfu nction, grade 3, severe pulmonary hypertension with PA pressure 70 mmHg secondary to heart disease and COPD [id number] score is 3, yearly risk of stroke without oral anticoagulation is 3.2 percent. She is maintained on Xarelto. 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 Davis. Hyperlipidemia, continue to monitor Hypothyroidism, followed and managed by primary care physician. No changes are recommended. Nonobstructive coronary artery disease per most recent cardiac catheterization August 08, 2015 Insomnia, discussed using occasional Xanax due to anxiety and inability to fall asleep Carotid artery stenosis-history of right carotid stenting done by Dr. James October 2015, followed by Dr. James Clinical Quality Measures DVT/VTE Risk/Contraindication: Risk Factor Score Per Nursin RFS Level Per Nursing on Admit: 4+=Very High LOUISE SPARROW MD December 25, 2018 08:05
[2018-12-25] MEDS ORDERED: DIGOXIN 0.25 MG (LANOXIN) TAB PO SCH (09:00)
--- NOTE | 2018-12-25 09:00 | NUR ---
pt to room 410 introduced to room and call system. report given to jerzy hamilton
[2018-12-25] MEDS: DILTIAZEM 300 MG (CARDIZEM CD) CAP PO SCH (09:09)
--- NOTE | 2018-12-25 09:09 | Progress Note-Hospitalist ---
Subjective HPI/CC On Admission Date Seen by Provider: December 25, 2018 Time Seen by Provider: 08:30 The patient is 74-year-old white female who noted the onset of coughing with intermittent yellowish sputum production several days ago. She felt more fatigued yesterday. While she did not recall Reiger's her states that she did have shaking chills in the middle of the night's with increased confusion. She was brought to the emergency room where she was significantly hypotensive and minimally responsive. She underwent fluid resuscitation and leave the fat was initiated. She was admitted with diagnosis of presumed septic shock. Upon my arrival she was alert oriented with no recollection of her emergency room visit. She has a history of COPD with pulmonary hypertension and chronic atrial fibrillation with reportedly preserved ventricular function. She had recent problems with anemia 2 months ago was significant enough that it required transfusion. She wasn't aware of an overt history of GI bleeding but had been on aspirin and Xaralto. The former was discontinued and the latter has been continued with no reported melena or bright red blood per rectum. She denies abdominal pain dysphasia or heartburn. She does take pantoprazole daily. She was nor of any past history of known GI bleeding or peptic ulcer disease. She denies any past need for mechanical ventilation or previous admissions for sepsis. She denied increased urinary frequency dysuria or flank pain. Subjective/Events-last exam Patient feeling better. Upon arrival central line and just been removed and pressure was being held by the nurse. Patient was smiling in good spirits. She denied chest pain and denied shortness of breath at rest. Focused Exam Lactate Level 12/24/18 07:45: Lactic Acid Level 1.16 Objective Exam Vital Signs Vital Signs Date Time Temp Pulse Resp B/P (MAP) Pulse Ox O2 Delivery O2 Flow Rate FiO2 12/25/18 07:08 118 12/25/18 07:00 15 137/95 (109) 95 OxyMask 6.00 12/25/18 00:09 96.4 Capillary Refill : Less Than 3 Seconds General Appearance: WD/WN, Mild Distress HEENT: PERRL/EOMI, Pharynx Normal Neck: Non Tender, Supple Respiratory: No Accessory Muscle Use, No Respiratory Distress, Decreased Breath Sounds Cardiovascular: Irregularly Irregular, Tachycardia Gastrointestinal: Non Tender, Soft Back: Normal Inspection, No CVA Tenderness, No Vertebral Tenderness Extremity: Normal Range of Motion, Non Tender Neurologic/Psychiatric: Alert, Oriented x3, No Motor/Sensory Deficits Skin: Warm/Dry, Pallor Results/Procedures Lab Laboratory Tests 12/25/18 03:02 Patient resulted labs reviewed. Assessment/Plan Assessment and Plan Assess & Plan/Chief Complaint A/P 1. Likely septic shock probably respiratory etiology possible left lower lobe pneumonia. Chest x-ray reveals increased interstitial markings the patient is clinically significantly improved and is back to being mildly hypertensive off of pressor support. Agree with transfer to the floor. 2. Persistent atrial fibrillation Dr. Carrasco is switching her back to diltiazem for rate control in discontinuing digoxin considering her blood pressures come up significantly and she is off of pressor support. 3. History of COPD with pulmonary hypertension personally due to past smoking history continue supplemental oxygen. 4. History of recent anemia currently resolved but significant enough that did require blood transfusion per the patient's report. Strongly suspect GI bleed considering the patient was on aspirin and Xaralto. Aspirin has been stopped will hold anticoagulant therapy today defer to Dr. Carrasco tomorrow and continue pantoprazole. Critical Care Critically Ill Patient Clinical Quality Measures DVT/VTE Risk/Contraindication: Risk Factor Score Per Nursin RFS Level Per Nursing on Admit: 4+=Very High FRANSISCO GONZALEZ MD December 25, 2018 09:09
--- NOTE | 2018-12-25 09:33 | Diagnostic Imaging Report ---
Indication: Dyspnea Comparison: 12/24/2018 Technique: Single frontal radiograph of the chest dated 12/25/2018. Findings: The cardiac silhouette is enlarged, though stable. Central pulmonary vascular congestion is again identified. Diffuse prominence of the pulmonary interstitium is again noted, increased since the prior examination. Increasing left basilar opacities. No pneumothorax. No acute osseous abnormality. Impression: Worsening bilateral interstitial opacities and left basilar opacities favor to relate to worsening congestive heart failure with interstitial edema and left pleural effusion. Superimposed infiltrate may be present. Recommend continued radiographic followup. Dictated by: Dictated on workstation # [id number]
[2018-12-25] MEDS: ATORVASTATIN 20 MG (LIPITOR) TABLET PO SCH (20:14)
[2018-12-26] MEDS: PIPERACILLIN/TAZO 4.5 GM/NS 100 ML IV SCH ×4 (00:03→10:37)
[2018-12-26] MEDS: RT-ALBUTEROL/IPRATROPIUM 3 ML (DUONEB) VIAL INH SCH ×3 (02:39→10:49)
[2018-12-26 04:20] VITALS: BP 120/64
[2018-12-26 05:18] LABS: BASOPHILS % (AUTO) 0 % (0-10); EOSINOPHILS % (AUTO) 0 % (0-10); HEMATOCRIT 38 % (35-52); HEMOGLOBIN 12.7 G/DL (11.5-16.0); LYMPHOCYTES # (AUTO) 0.6 X 10^3 (1.0-4.0); LYMPHOCYTES % (AUTO) 5 % (12-44); MEAN CORPUSCULAR HEMOGLOBIN 33 PG (25-34); MEAN CORPUSCULAR HGB CONC 34 G/DL (32-36); MEAN CORPUSCULAR VOLUME 97 FL (80-99); MONOCYTES # (AUTO) 1.1 X 10^3 (0.0-1.0); MONOCYTES % (AUTO) 9 % (0-12); NEUTROPHILS # (AUTO) 10.2 X 10^3 (1.8-7.8); NEUTROPHILS % (AUTO) 86 % (42-75); PLATELET COUNT 186 10^3/uL (130-400); RED CELL DISTRIBUTION WIDTH 13.8 % (10.0-14.5); WHITE BLOOD COUNT 11.9 10^3/uL (4.3-11.0)
[2018-12-26] MEDS: LEVOTHYROXINE 25 MCG (LEVOTHROID) TAB PO SCH (07:01)
[2018-12-26 08:00] VITALS: BP 125/84
[2018-12-26] MEDS: PANTOPRAZOLE 40 MG (PROTONIX) TAB PO SCH (09:46)
[2018-12-26] MEDS: DILTIAZEM 300 MG (CARDIZEM CD) CAP PO SCH (09:47)
[2018-12-26] MEDS ORDERED: CEFD300C3 PO (11:04)
--- NOTE | 2018-12-26 11:57 | Cardiology Progress Note ---
Subjective Date Seen by Provider: December 26, 2018 Time Seen by Provider: 11:55 Subjective/Events-last exam patient is feeling better. Denied any chest pain, back to her baseline with her dyspnea, using oxygen. Asking to go home. Review of Systems General: No Chills, No Night Sweats, No Fatigue, No Malaise, No Appetite, No Other HEENT: No Head Aches, No Visual Changes, No Eye Pain, No Ear Pain, No Dysphasia, No Sinus Congestion, No Post Nasal Drip, No Sore Throat, No Other Pulmonary: Dyspnea; No Cough, No Pleuritic Chest Pain, No Other Cardiovascular: No: Chest Pain, Palpitations, Orthopnea, Paroxysmal Noc. Dyspnea, Edema, Lt Headedness, Other Focused Exam Lactate Level 12/24/18 07:45: Lactic Acid Level 1.16 Objective-Cardiology Exam Last Set of Vital Signs Vital Signs 12/26/18 12/26/18 12/26/18 08:00 08:01 10:49 Temp 96.6 Pulse 87 Resp 22 B/P (MAP) 125/84 (98) Pulse Ox 98 O2 Delivery Nasal Cannula O2 Flow Rate 6.00 Capillary Refill : Less Than 3 SecondsLess Than 3 Seconds I&O Intake and Output 12/26/18 00:00 Intake Total 1440 ml Output Total 2800 ml Balance -1360 ml Intake Oral 1320 ml IV Total 120 ml Output Urine Total 2800 ml # Bowel Movements 1 General: Alert, Oriented X3, Cooperative HEENT: Atraumatic, PERRLA Neck: Supple, No JVD, No Thyromegaly Lungs: Normal Air Movement, Other (bilateral rhonchi) Heart: Normal S1, Normal S2, No Murmurs, Other (atrial fibrillation, controlled rate) Abdomen: Normal Bowel Sounds, Soft, No Tenderness, No Hepatosplenomegaly, No Masses Extremities: No Clubbing, No Cyanosis, No Edema, Normal Pulses, No Tenderness/Swelling Skin: No Rashes, No Breakdown, No Significant Lesion Neuro: Normal Gait, Normal Speech, Strength at 5/5 X4 Ext, Normal Tone, Sen sation Intact Psych/Mental Status: Mental Status NL, Mood NL Results Lab Laboratory Tests 12/26/18 04:53 A/P-Cardiology Admission Diagnosis Acute respiratory failure Hypotensive shock Atrial fibrillation with rapid ventricular response COPD Assessment/Plan Status post Acute respiratory failure better at this time back to baseline, managed by Dr. Cage. Reporting improvement. Okay for discharge from cardiology standpoint Status post hypotensive shock, responded to pressors and IV fluid, currently off pressors, blood pressure is better. Continue to monitor Chronic atrial fibrillation, heart rate is better controlled. Continue on current medications and monitor Congestive heart failure, acute on chronic left ventricular diastolic dysfunction, grade 3, severe pulmonary hypertension with PA pressure 70 mmHg secondary to heart disease and COPD [id number] score is 3, yearly risk of stroke without oral anticoagulation is 3.2 percent. She is maintained on Xarelto. 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 Davis. Hyperlipidemia, continue to monitor Hypothyroidism, followed and managed by primary care physician. No changes are recommended. Nonobstructive coronary artery disease per most recent cardiac catheterization August 08, 2015 Insomnia, discussed using occasional Xanax due to anxiety and inability to fall asleep Carotid artery stenosis-history of right carotid stenting done by Dr. James October 2015, followed by Dr. James Clinical Quality Measures DVT/VTE Risk/Contraindication: Risk Factor Score Per Nursin RFS Level Per Nursing on Admit: 4+=Very High LOUISE SPARROW MD December 26, 2018 11:57
[2018-12-26 11:58] VITALS: BP 125/84
--- NOTE | 2018-12-26 13:02 | Discharge Summary-Hospitalist ---
Diagnosis/Chief Complaint Date of Admission December 24, 2018 at 10:15 Date of Discharge Discharge Date: December 26, 2018 Admission Diagnosis A/P 1. Likely septic shock probably respiratory etiology possible left lower lobe pneumonia. Patient is responding to fluid resuscitation and levo fed antibiotics have been initiated initial lactic acid was normal at a little over 1. We will repeat PA and lateral chest x-ray tomorrow and we may be able to taper off of pressor support continuing IV fluids. 2. Persistent atrial fibrillation Dr. Carrasco is initiating digoxin for rate control considering initial hypotension for now we'll hold the diltiazem. Echocardiogram is pending. 3. History of COPD with pulmonary hypertension personally due to past smoking history continue supplemental oxygen. 4. History of recent anemia currently resolved but significant enough that did require blood transfusion per the patient's report. Strongly suspect GI bleed considering the patient was on aspirin and Xaralto. Aspirin has been stopped will hold anticoagulant therapy today defer to Dr. Carrasco tomorrow and continue pantoprazole. Discharge Summary Discharge Physical Exam Allergies: Coded Allergies: valacyclovir HCl (Verified Allergy, Unknown, RASH, 08/30/14) Vitals & I&Os Vital Signs Date Time Temp Pulse Resp B/P (MAP) Pulse Ox O2 Delivery O2 Flow Rate FiO2 12/26/18 10:49 98 Nasal Cannula 6.00 12/26/18 08:01 87 12/26/18 08:00 96.6 22 125/84 (98) General Appearance: No Apparent Distress, WD/WN Respiratory: Chest Non Tender, Lungs Clear, Normal Breath Sounds, No Accessory Muscle Use, No Respiratory Distress Cardiovascular: No Edema, No Gallop, No JVD, No Murmur, Irregularly Irregular Extremity: Normal Capillary Refill, Normal Inspection, Normal Range of Motion, Non Tender, No Calf Tenderness, No Pedal Edema Hospital Course Patient presented to the emergency room and rest for distress with shortness of breath. She was hypotensive with elevated white count and febrile suggesting underlying severe sepsis. She responded to IV fluids and baseline repeat lactate levels were normal. She was started on Zosyn. She has chronic atrial fibrillation and did have rapid ventricular response that did respond to IV fluids with no subsequent rate problems on diltiazem. While she did grow Klebsiella pneumonia out of her urine she only had 0-2 white cells indicative of asymptomatic bacteriuria and not the likely source. Blood cultures were negative repeat chest x-ray did not reveal evidence for pneumonia nor did her initial chest x-ray. The source of sepsis is not clear. She will be discharged on Omnicef 3 mg twice a day to continue another 5 days will be following up with Dr. Cage and has a future appointment with Dr. Carrasco as well. She was discha rged stable vital signs voicing no complaints with baseline physical examination. An echocardiogram was repeated revealing moderate severe mitral insufficiency and ejection fraction around 35 percent and severe pulmonary hypertension with estimated PA pressure of 70. All these findings however were unchanged from her last echocardiogram. No evidence for endocarditis was noted. She remained afebrile during her hospital stay. She reports she has an appointment with her primary care physician for [place] and was told to keep this appointment next month as well. Labs (last 24 hrs) Laboratory Tests 12/26/18 04:53: White Blood Count 11.9H, Red Blood Count 3.91L, Hemoglobin 12.7, Hematocrit 38, Mean Corpuscular Volume 97, Mean Corpuscular Hemoglobin 33, Mean Corpuscular Hemoglobin Concent 34, Red Cell Distribution Width 13.8, Platelet Count 186, Mean Platelet Volume 11.0H, Neutrophils (%) (Auto) 86H, Lymphocytes (%) (Auto) 5L, Monocytes (%) (Auto) 9, Eosinophils (%) (Auto) 0, Basophils (%) (Auto) 0, Neutrophils # (Auto) 10.2H, Lymphocytes # (Auto) 0.6L, Monocytes # (Auto) 1.1H, Eosinophils # (Auto) 0.0, Basophils # (Auto) 0.0, Phosphorus Level 3.1 Microbiology 12/24/18 Blood Culture - Preliminary, Resulted No growth 12/24/18 Urine Culture - Final, Complete Klebsiella pneumoniae Patient resulted labs reviewed. Discussion & Recommendations Discharge Planning: >30 minutes discharge planning Discharge Home Medications: Active Scripts Active Cefdinir 300 Mg Capsule 300 Mg PO BID 5 Days Reported Ventolin Hfa (Albuterol Sulfate) 18 Gm Hfa.aer.ad 2 Puff INH QID PRN Furosemide 40 Mg Tablet 40 Mg PO 0800,1500 Potassium Chloride 20 Meq Tab.er.prt 20 Meq PO BID Diltiazem 24Hr ER (Diltiazem HCl) 300 Mg Cap.er.24h 300 Mg PO DAILY Doc-Q-Lace (Docusate Sodium) 100 Mg Capsule 100 Mg PO BID PRN Saline Mist (Sodium Chloride) 44 Ml [place] 1-2 Sprays NS TID PRN [place] Saline Nasal Gel [place] (Sodium Chloride/Aloe Vera) 22 Ml [place] 1 [place] NA BID PRN Multivitamins (Multivitamin) 1 Each Tablet 1 Tab PO DAILY Acetaminophen Extra Strength (Acetaminophen) 500 Mg Tablet 500 Mg PO Q4H PRN Fish Oil 1,000 mg Softgel ([place]-3 Fatty Acids/Fish Oil) 1 Each Capsule 1,000 Mg PO DAILY Revatio (Sildenafil Citrate) 20 Mg Tablet 20 Mg PO TID Albuterol Sulfate 2.5 Mg/3 Ml Vial.neb 2.5 Mg NEB EVERY 4-6 HOURS PRN Symbicort 160-4.5 Mcg Inhaler (Budesonide/Formoterol Fumarate) 10.2 Gm Hfa.aer.ad 2 Puff IH BID Spiriva (Tiotropium [place]) 1 Inh Aerp 1 Cap IH DAILY Levothyroxine Sodium 25 Mcg Tablet 25 Mcg PO DAILY Xarelto Tablet (Rivaroxaban) 20 Mg Tablet 20 Mg PO 1800 Pantoprazole Sodium 40 Mg Tablet.dr 40 Mg PO 1800 Atorvastatin Calcium 20 Mg Tablet 20 Mg PO HS Instructions to patient/family Please see electronic discharge instructions given to patient. Clinical Quality Measures DVT/VTE Risk/Contraindication: Risk Factor Score Per Nursin RFS Level Per Nursing on Admit: 4+=Very High Copy Copies To 1: JONATHAN STANFORD MD, MARK D MD December 26, 2018 13:02
== END 2018-12-26 11:58 | disposition home or self-care (01) | DRG 871 ==
LOC: ER 07:13 → EDUNIT# 07:13 → ICU 10:15 → 4TH 12-25 08:48
PROVIDERS: ADMIT Internal Medicine; ATTEND Internal Medicine
PROC: 02HV33Z Insertion of Infusion Device into Superior Vena Cava, Percutaneous Approach (ICD-10-PCS; principal; 2018-12-24)
DX: A41.9 Sepsis, unspecified organism (principal); R65.21 Severe sepsis with septic shock; J18.1 Lobar pneumonia, unspecified organism; J96.00 Acute respiratory failure, unspecified whether with hypoxia or hypercapnia; J44.0 Chronic obstructive pulmonary disease with (acute) lower respiratory infection; J44.1 Chronic obstructive pulmonary disease with (acute) exacerbation; J81.1 Chronic pulmonary edema; I50.33 Acute on chronic diastolic (congestive) heart failure; I27.22 Pulmonary hypertension due to left heart disease; I27.23 Pulmonary hypertension due to lung diseases and hypoxia; I34.0 Nonrheumatic mitral (valve) insufficiency; E87.6 Hypokalemia; I48.2 Chronic atrial fibrillation; I73.00 Raynaud's syndrome without gangrene; E78.00 Pure hypercholesterolemia, unspecified; I73.9 Peripheral vascular disease, unspecified; K21.9 Gastro-esophageal reflux disease without esophagitis; E03.9 Hypothyroidism, unspecified; D50.0 Iron deficiency anemia secondary to blood loss (chronic); E78.5 Hyperlipidemia, unspecified; I25.10 Atherosclerotic heart disease of native coronary artery without angina pectoris; G47.00 Insomnia, unspecified; I65.23 Occlusion and stenosis of bilateral carotid arteries; Z87.891 Personal history of nicotine dependence; Z99.81 Dependence on supplemental oxygen
CPT/HCPCS: 36415; 36600; 51702; 71045; 80053; 81000; 82805; 83605; 83735; 83880; 84100; 84443; 84484; 85007; 85025; 85027; 85610; 85730; 87040; 87077; 87088; 87186; 93005; 93306; 94640; 94760; 99291

== ENCOUNTER 2018-12-30 15:21 | Outpatient (RCR) | payer MEDICARE ==
[2018-12-23 14:33] LABS: BASOPHILS % (AUTO) 0 % (0-10); EOSINOPHILS # (AUTO) 0.2 10^3/uL (0.0-0.3); EOSINOPHILS % (AUTO) 2 % (0-10); HEMATOCRIT 40 % (35-52); HEMOGLOBIN 13.7 G/DL (11.5-16.0); LYMPHOCYTES % (AUTO) 9 % (12-44); MEAN CORPUSCULAR HGB CONC 34 G/DL (32-36); MEAN CORPUSCULAR VOLUME 95 FL (80-99); MEAN PLATELET VOLUME 10.9 FL (7.4-10.4); MONOCYTES # (AUTO) 1.1 X 10^3 (0.0-1.0); MONOCYTES % (AUTO) 11 % (0-12); NEUTROPHILS # (AUTO) 8.1 X 10^3 (1.8-7.8); NEUTROPHILS % (AUTO) 78 % (42-75); PLATELET COUNT 238 10^3/uL (130-400); RED CELL DISTRIBUTION WIDTH 14.5 % (10.0-14.5); WHITE BLOOD COUNT 10.4 10^3/uL (4.3-11.0)
[2018-12-23 14:34] LABS: MEAN CORPUSCULAR HEMOGLOBIN 32 PG (25-34)
[2018-12-23 14:55] LABS: ALBUMIN 3.9 GM/DL (3.2-4.5); BILIRUBIN,TOTAL 0.5 MG/DL (0.1-1.0); CALCIUM 9.3 MG/DL (8.5-10.1); CREATININE SERUM 0.96 MG/DL (0.60-1.30); POTASSIUM 3.8 MMOL/L (3.6-5.0); TOTAL PROTEIN 6.9 GM/DL (6.4-8.2)
[~2018-12-30 15:21] MED LIST changes: +ALBU18HF2 INH; +CEFD300C3 PO; +DILT300C52 PO; +DOCU-250 PO; +FERR-84 PO; +FURO40TA4 PO; +MULT1TAB69 PO; +OMEG-77 PO; +POTA20TA15 PO; +SODI22SP; +SODI45SP4 NS
== END 2019-03-23 | disposition home or self-care (01) ==
LOC: ONC 15:21
PROVIDERS: ATTEND Internal Medicine Hematology & Oncology
DX: D64.9 Anemia, unspecified (principal); I48.2 Chronic atrial fibrillation; J44.9 Chronic obstructive pulmonary disease, unspecified; I11.0 Hypertensive heart disease with heart failure; I50.30 Unspecified diastolic (congestive) heart failure; I25.10 Atherosclerotic heart disease of native coronary artery without angina pectoris; E78.5 Hyperlipidemia, unspecified; E03.9 Hypothyroidism, unspecified; I73.00 Raynaud's syndrome without gangrene; K21.9 Gastro-esophageal reflux disease without esophagitis; E78.00 Pure hypercholesterolemia, unspecified; I73.9 Peripheral vascular disease, unspecified; Z79.01 Long term (current) use of anticoagulants; Z79.02 Long term (current) use of antithrombotics/antiplatelets; Z95.828 Presence of other vascular implants and grafts; Z87.891 Personal history of nicotine dependence; Z99.81 Dependence on supplemental oxygen
CPT/HCPCS: 36415; 80053; 82728; 85025; 99213

== ENCOUNTER → 2019-02-15 | Outpatient (CLI) | payer MEDICARE ==
[~2019-02-15] MED LIST changes: +CATHETER FLUSH 10 ML SYR IV PRN; +HOLD METFORMIN - RECEIVED CONTRAST 20 ML VIAL IV SCH; +IOHEXOL 350 MG/ML 100 ML (OMNIPAQUE 350) VIAL IV ONE; +NS 100 ML (IVPB) BAG IV ONE; +RT-ALBUTEROL SULF 2.5 MG/3 ML PRE-MIX VIAL INH ONE
[2019-02-15 12:45] LABS: CREATININE SERUM 1.15 MG/DL (0.60-1.30)
--- NOTE | 2019-02-15 16:13 | Diagnostic Imaging Report ---
PROCEDURE: CT chest with contrast only. TECHNIQUE: Multiple contiguous axial images were obtained through the chest after administration of intravenous contrast. Auto Exposure Controls were utilized during the CT exam to meet ALARA standards for radiation dose reduction. INDICATION: Pneumonia and dyspnea. COMPARISON: Correlation is made with prior CT chest from 08/11/2016. FINDINGS: No axillary lymphadenopathy is seen. Prominent lymph node in the anterior mediastinum measures 14 mm compared with approximately 12 mm on prior exam. There is moderate diffuse fluid-filled distention of the esophagus. Right paratracheal node near the surya has decreased in size since prior exam measuring 1.8 cm compared with 2.2 cm. No definite hilar lymphadenopathy is seen. Heart is enlarged. There is no pericardial fluid. Trace left pleural effusion is noted. Parenchymal evaluation does show centrilobular emphysematous changes in both lungs. Calcified granuloma left upper lobe is seen and stable. There is some scarring or atelectasis in right middle lobe and left lower lobe. Overall, there has been improved aeration of lung bases since prior CT. Upper abdomen demonstrates cysts within both kidneys. IMPRESSION: 1. Cardiomegaly. 2. Mildly prominent mediastinal lymph nodes, similar to perhaps slightly improved when compared with prior exam. 3. Centrilobular emphysematous changes. No pulmonary parenchymal mass or infiltrate is seen. 4. Fluid-filled esophagus, perhaps owing to reflux. 5. Trace left pleural effusion. 6. Bilateral renal cysts. Dictated by: Dictated on workstation # [id number]
== END ==
LOC: RAD 12:11
PROVIDERS: ATTEND Nurse Practitioner Family
DX: J43.2 Centrilobular emphysema (principal); J18.9 Pneumonia, unspecified organism; N28.1 Cyst of kidney, acquired; K22.8 Other specified diseases of esophagus; R59.0 Localized enlarged lymph nodes; I51.7 Cardiomegaly; I27.23 Pulmonary hypertension due to lung diseases and hypoxia
CPT/HCPCS: 36415; 71260; 82565; 84520; 94640

== ENCOUNTER → 2019-04-11 | Outpatient (CLI) | payer MEDICARE ==
[~2019-04-11] MED LIST changes: -CATHETER FLUSH 10 ML SYR IV PRN; -RT-ALBUTEROL SULF 2.5 MG/3 ML PRE-MIX VIAL INH ONE
[2019-04-11 16:13] LABS: BASOPHILS % (AUTO) 0 % (0-10); EOSINOPHILS # (AUTO) 0.2 10^3/uL (0.0-0.3); EOSINOPHILS % (AUTO) 1 % (0-10); HEMATOCRIT 45 % (35-52); HEMOGLOBIN 15.1 G/DL (11.5-16.0); LYMPHOCYTES # (AUTO) 0.8 X 10^3 (1.0-4.0); LYMPHOCYTES % (AUTO) 5 % (12-44); MEAN CORPUSCULAR HEMOGLOBIN 32 PG (25-34); MEAN CORPUSCULAR HGB CONC 34 G/DL (32-36); MEAN CORPUSCULAR VOLUME 97 FL (80-99); MEAN PLATELET VOLUME 10.6 FL (7.4-10.4); MONOCYTES # (AUTO) 2.3 X 10^3 (0.0-1.0); MONOCYTES % (AUTO) 14 % (0-12); NEUTROPHILS # (AUTO) 12.8 X 10^3 (1.8-7.8); NEUTROPHILS % (AUTO) 79 % (42-75); PLATELET COUNT 293 10^3/uL (130-400); RED CELL DISTRIBUTION WIDTH 14.2 % (10.0-14.5); WHITE BLOOD COUNT 16.1 10^3/uL (4.3-11.0)
[2019-04-11 16:26] LABS: CALCIUM 9.8 MG/DL (8.5-10.1); CREATININE SERUM 1.04 MG/DL (0.60-1.30); POTASSIUM 4.2 MMOL/L (3.6-5.0)
[2019-04-11 16:29] LABS: ABG BASE EXCESS 7.2 MMOL/L (-2.5-2.5); ABG OXYGEN SATURATION 94 % (94-100); ABG PCO2 40 MMHG (35-45); ABG PO2 65 MMHG (79-93)
[2019-04-11 16:30] LABS: ALLENS TEST YES-POS; INSPIRED O2 3; PATIENT TEMP 36.8; VENTILATOR NO
[2019-04-11 17:06] LABS: BAND NEUTROPHILS 0 %; BASOPHILS % (MANUAL) 0 %; EOSINOPHILS % (MANUAL) 1 %; LYMPHOCYTES % (MANUAL) 8 %; MONOCYTES % (MANUAL) 13 %; NEUTROPHILS % (MANUAL) 78 %
[2019-04-11 17:07] LABS: RBC MORPH NORMAL
--- NOTE | 2019-04-11 17:40 | Diagnostic Imaging Report ---
PROCEDURE: CT angiography of the chest with contrast. TECHNIQUE: Multiple contiguous axial images were obtained through the chest after uneventful bolus administration of intravenous contrast. 3D reconstructed CTA MIP acquisitions were also performed. Auto Exposure Controls were utilized during the CT exam to meet ALARA standards for radiation dose reduction. INDICATION: Shortness of breath. Findings: Comparison is 02/15/2019. There is no pulmonary embolism. Both atria are dilated and the left ventricle is dilated. The inferior vena cava is distended. The aorta is normal in caliber. No axillary, supraclavicular or mediastinal lymphadenopathy. Limited views of the upper abdomen are normal. Lungs are emphysematous and there are is mild pulmonary edema. No pleural effusion or pneumothorax. The esophagus is distended. There are no suspicious osseous lesions. Impression: 1. No pulmonary embolism. 2. Dilated heart with distended inferior vena cava and mild pulmonary edema. Dictated by: Dictated on workstation # [id number]
== END ==
LOC: RAD 15:34
PROVIDERS: ATTEND Internal Medicine Critical Care Medicine
DX: I51.7 Cardiomegaly (principal); J81.1 Chronic pulmonary edema; I27.23 Pulmonary hypertension due to lung diseases and hypoxia; J43.9 Emphysema, unspecified; I51.89 Other ill-defined heart diseases; R91.8 Other nonspecific abnormal finding of lung field
CPT/HCPCS: 36415; 36600; 71275; 80048; 82805; 83605; 83880; 85007; 85027

== ENCOUNTER → 2019-06-21 | Outpatient (CLI) | payer MEDICARE ==
[~2019-06-21] MED LIST changes: -HOLD METFORMIN - RECEIVED CONTRAST 20 ML VIAL IV SCH; -IOHEXOL 350 MG/ML 100 ML (OMNIPAQUE 350) VIAL IV ONE; -NS 100 ML (IVPB) BAG IV ONE
[2019-06-21 11:26] LABS: ALBUMIN 4.2 GM/DL (3.2-4.5); CALCIUM 9.5 MG/DL (8.5-10.1); CREATININE SERUM 1.3 MG/DL (0.60-1.30); POTASSIUM 4.4 MMOL/L (3.6-5.0); TOTAL PROTEIN 7.1 GM/DL (6.4-8.2)
== END ==
LOC: LAB 10:42
PROVIDERS: ATTEND Physician Assistant
DX: I10 Essential (primary) hypertension (principal); E78.5 Hyperlipidemia, unspecified
CPT/HCPCS: 36415; 80053; 80061

== ENCOUNTER 2019-07-26 12:26 | Outpatient (CLI) | payer MEDICARE ==
[~2019-07-26] VITALS: Ht 165.1 cm; Wt 60.9 kg
[2019-07-26] MEDS ORDERED: FLUT1BLS3 IH (13:37)
[2019-07-26] MEDS ORDERED: FERR325T5 PO (13:37)
== END 2019-07-26 13:53 | disposition home or self-care (01) ==
LOC: PREOP 12:26
PROVIDERS: ATTEND Surgery
DX: Z01.818 Encounter for other preprocedural examination (principal)

== ENCOUNTER → 2019-10-11 | Outpatient (CLI) | payer MEDICARE ==
[~2019-10-11] MED LIST changes: +DIGO125T3 PO; +FERR325T5 PO; +FLUT1BLS3 IH; -HYDR-3062 PO; +MAGN400T8 PO; -METO-370 PO; -METO-395 PO; -MONT10TA24 PO; +MONT10TA26 PO; +MTP100TCR PO
== END ==
LOC: CARD 12:34
PROVIDERS: ATTEND Internal Medicine Cardiovascular Disease
DX: I08.1 Rheumatic disorders of both mitral and tricuspid valves (principal); I11.9 Hypertensive heart disease without heart failure; I48.91 Unspecified atrial fibrillation; E78.5 Hyperlipidemia, unspecified; I65.23 Occlusion and stenosis of bilateral carotid arteries
CPT/HCPCS: 93306

== ENCOUNTER 2020-01-17 10:45 | Outpatient (RCR) | payer MEDICARE ==
[~2020-01-17 10:45] MED LIST changes: +MULT-567 PO; -MULT1TAB69 PO; -PANT40TA3 PO; +PANT40TA52 PO
[2020-01-17 13:33] LABS: BASOPHILS % (AUTO) 0 % (0-10); EOSINOPHILS # (AUTO) 0.2 10^3/uL (0.0-0.3); EOSINOPHILS % (AUTO) 2 % (0-10); HEMATOCRIT 41 % (35-52); HEMOGLOBIN 14.2 G/DL (11.5-16.0); LYMPHOCYTES # (AUTO) 0.8 X 10^3 (1.0-4.0); LYMPHOCYTES % (AUTO) 8 % (12-44); MEAN CORPUSCULAR HEMOGLOBIN 33 PG (25-34); MEAN CORPUSCULAR HGB CONC 35 G/DL (32-36); MEAN CORPUSCULAR VOLUME 94 FL (80-99); MEAN PLATELET VOLUME 10.3 FL (7.4-10.4); MONOCYTES # (AUTO) 1.3 X 10^3 (0.0-1.0); MONOCYTES % (AUTO) 12 % (0-12); NEUTROPHILS % (AUTO) 78 % (42-75); PLATELET COUNT 261 10^3/uL (130-400); WHITE BLOOD COUNT 10.3 10^3/uL (4.3-11.0)
[2020-01-17 13:57] LABS: ALBUMIN 3.8 GM/DL (3.2-4.5); BILIRUBIN,TOTAL 0.7 MG/DL (0.1-1.0); CREATININE SERUM 1.28 MG/DL (0.60-1.30); POTASSIUM 4.4 MMOL/L (3.6-5.0); TOTAL PROTEIN 6.9 GM/DL (6.4-8.2)
[2020-02-20] MEDS ORDERED: MONT10TA26 PO (09:47)
[2020-02-20] MEDS ORDERED: LEVO50TA6 PO (09:47)
[2020-02-20] MEDS ORDERED: DOCU100C37 PO (09:50)
[2020-02-20] MEDS ORDERED: METO50TA7 PO (09:50)
[2020-02-20] MEDS ORDERED: PRED10TA22 PO (12:47)
== END 2020-04-23 | disposition home or self-care (01) ==
LOC: EDSTATUS 01-24 13:18 → ONC 01-24 14:14
PROVIDERS: ATTEND Internal Medicine Hematology & Oncology
DX: D64.9 Anemia, unspecified (principal)
CPT/HCPCS: 80053 ×2; 82728 ×2; 85025 ×2; G0463; 99213

== ENCOUNTER 2020-02-17 16:04 | Inpatient (IN) | payer MEDICARE ==
[~2020-02-17] VITALS: Ht 165 cm; Wt 60.2 kg
[2020-02-17] VITALS (14 sets, daily range): BP systolic 79–103; BP diastolic 43–95
[~2020-02-17 16:04] MED LIST changes: +PANT40TA3 PO; -PANT40TA52 PO
[2020-02-17] MEDS ORDERED: RT-ALBUTEROL SULF 2.5 MG/3 ML PRE-MIX VIAL INH STA (16:26)
[2020-02-17] MEDS ORDERED: NS IV 1000 ML 1,000 ML IV SCH (16:26)
[2020-02-17] MEDS ORDERED: RT-ALBUTEROL/IPRATROPIUM 3 ML (DUONEB) VIAL INH ONE (16:30)
--- NOTE | 2020-02-17 16:36 | ED Respiratory ---
General Chief Complaint: Respiratory Problems Stated Complaint: SOA Nursing Triage Note: PT TO ROOM CL 02 VIA EMS WITH C/O SOA X1 WEEK WORSENING TODAY. PT ON NON REBREATHER UPON ARRIVAL. PT O2 SAT DROPPED TO 57% WHEN NON REBREATHER REMOVED. EMS REPORTS 02 OF 64% UPON THEIR ARRIVAL TO PT HOME. Source: patient Exam Limitations: no limitations History of Present Illness Date Seen by Provider: Feb 17, 2020 Time Seen by Provider: 16:15 Initial Comments Patient resents ER by EMS from [facility] with chief complaint of profound shortness of air today. She's been having shortness of air progressively worsening over the past 5 days. She has a history of COPD, pulmonary hypertension followed by Dr. Cage and Dr. Thomas primary care. She's been using her breathing treatments frequently but getting less and less return on an investment. She has had no fevers chills chest pain nausea vomiting sweats diarrhea, loss of taste. She says she's been quarantined at home since October. She uses 4 L of oxygen at baseline and does not use CPAP at night to sleep. EMS reports they appear to be in the 60% sat range with a good pulsatile waveform on her 6 L per nasal cannula at home. They put her on nonrebreather and she became 100% sat in. Nursing reports that transferring her from nonrebreather to their nonrebreather in less than a minute she desatted down to about 60% but is staying 96-100% at 15 L/m. Allergies and Home Medications Allergies Coded Allergies: valacyclovir HCl (Verified Allergy, Unknown, RASH, 08/30/14) Home Medications Acetaminophen 500 Mg Tablet, 500 MG PO Q4H PRN for PAIN-MILD, (Reported) Albuterol Sulfate 2.5 Mg/3 Ml Vial.neb, 2.5 MG NEB EVERY 4-6 HOURS PRN for SHORTNESS OF BREATH, (Reported) Albuterol Sulfate 18 Gm Hfa.aer.ad, 2 PUFF INH QID PRN for SHORTNESS OF BREATH, (Reported) Atorvastatin Calcium 20 Mg Tablet, 20 MG PO HS, (Reported) Diltiazem HCl 300 Mg Cap.er.24h, 300 MG PO DAILY, (Reported) Docusate Sodium 100 Mg Capsule, 100 MG PO BID PRN for CONSTIPATION-1ST LINE, (Reported) Ferrous Sulfate 325 Mg Tablet.dr, 325 MG PO DAILY, (Reported) Fluticasone/Umeclidin/Vilanter 1 Each Blst.w.dev, 1 EACH IH DAILY, (Reported) Furosemide 40 Mg Tablet, 40 MG PO 0800,1500, (Reported) Levothyroxine Sodium 25 Mcg Tablet, 25 MCG PO DAILY, (Reported) Multivitamin 1 Each Tablet, 1 TAB PO DAILY, (Reported) [place]-3 Fatty Acids/Fish Oil 1 Each Capsule, 1,000 MG PO DAILY, (Reported) Pantoprazole Sodium 40 Mg Tablet.dr, 40 MG PO 1800, (Reported) Potassium Chloride 20 Meq Tab.er.prt, 20 MEQ PO BID, (Reported) Rivaroxaban 20 Mg Tablet, 20 MG PO 1800, (Reported) Sildenafil Citrate 20 Mg Tablet, 20 MG PO TID, (Reported) Sodium Chloride 44 Ml [place], 1-2 SPRAYS NS TID PRN for DRY NOSE, (Reported) Sodium Chloride/Aloe Vera 22 Ml [place], 1 SPRAY NA BID PRN for DRY NOSE, (Reported) Patient Home Medication List Home Medication List Reviewed: Yes Review of Systems Review of Systems Constitutional: No chills, No fever, No malaise EENTM: No ear discharge, No ear pain Respiratory: cough, short of breath, wheezing Cardiovascular: No chest pain, No edema Gastrointestinal: No abdominal pain, No nausea, No vomiting Genitourinary: No discharge, No dysuria Musculoskeletal: No back pain, No joint pain All Other Systems Reviewed Negative Unless Noted: Yes Past Tgavquf-Jszwic-Thjmtb Hx Patient Social History Alcohol Use: Denies Use Recreational Drug Use: No Smoking Status: Former Smoker Former Smoker, Quit: December 02, 1999 2nd Hand Smoke Exposure: No Recent Foreign Travel: No Contact w/Someone Who Travel: No Recent Infectious Disease Expo: No Recent Hopitalizations: No Immunizations Up To Date Tetanus Booster (TDap): Less than 5yrs PED Vaccines UTD: Yes Date of Pneumonia Vaccine: Jan 26, 2012 Date of Influenza Vaccine: May 30, 2019 Seasonal Allergies Seasonal Allergies: No Past Medical History Surgeries: Yes (t&a, cataract removal, lumpectomy, R cartoid stent) Adenoidectomy, Cardiac, Eye Surgery, Tonsillectomy, Vascular Surgery Respiratory: Yes (PULMONARY HTN; CONTINUOUS HOME O2 5L/NC IN DAY, 6L/NC AT NIGHT ) COPD, Emphysema Currently Using CPAP: No Currently Using BIPAP: No Cardiac: Yes (CHF, RAYNAUD'S,CARDIAC CATH--NO INTERVENTION,RIGHT CAROTID STENT) Atrial Fibrillation, Chronic Edema/Swelling, High Cholesterol, Hypertension, Peripheral Vascular Neurological: No Reproductive Disorders: No Female Reproductive Disorders: Denies Sexually Transmitted Disease: No HIV/AIDS: No Genitourinary: No UTI-Chronic Gastrointestinal: Yes Gastroesophageal Reflux Musculoskeletal: Yes (RAYNAUD'S ) Arthritis Endocrine: Yes Hypothyroidsim Cataract Loss of Vision: Bilateral Hearing Impairment: Denies Cancer: No Psychosocial: No Integumentary: Yes Blood Disorders: Yes (ANEMIA--) Adverse Reaction/Blood Tranf: No Family Medical History A BLOOD DISEASE 19 FATHER Blood disease Diabetes mellitus G8 BROTHER (BORDERLINE DIABETIC) Hypertension 19 FATHER Psychosocial problem G8 BROTHER (MENTAL RETARDATION) Respiratory disorder 19 MOTHER (COPD) G8 BROTHER (COPD) COPD Physical Exam Vital Signs - First Documented 02/17/20 02/17/20 16:04 16:14 Temp 36.8 Pulse 116 Resp 20 B/P (MAP) 123/83 (96) Pulse Ox 97 O2 Delivery Non Rebreather O2 Flow Rate 15.00 Capillary Refill : Less Than 3 Seconds Height: 5'6.00" Weight: 144lbs. 1.0oz. 65.084806uz; 21.00 BMI Method:Stated General Appearance: WD/WN, moderate distress Eyes: Bilateral Eye Normal Inspection, Bilateral Eye PERRL, Bilateral Eye EOMI HEENT: PERRL/EOMI, normal ENT inspection, TMs normal, pharynx normal Neck: full range of motion, supple, normal inspection Respiratory: respiratory distress (moderate), accessory muscle use (moderate), wheezing, expiration (prolonged) Cardiovascular: normal peripheral pulses, regular rate, rhythm Gastrointestinal: non tender, soft Extremities: normal range of motion, non-tender, normal inspection, no pedal edema, normal capillary refill Neurologic/Psychiatric: alert, normal mood/affect, oriented x 3 Skin: normal color, warm/dry Focused Exam Lactate Level 02/17/20 16:25: Lactic Acid Level 1.98 Lactic Acid Level Laboratory Tests Test 02/17/20 16:25 Lactic Acid Level 1.98 MMOL/L (0.50-2.00) Progress/Results/Core Measures Suspected Sepsis Recent Fever Within 48 Hours: No Infection Criteria Present: None New/Unexplained Altered Menta: No Sepsis Screen: No Definite Risk SIRS Temperature: Pulse: 116 Respiratory Rate: 20 Laboratory Tests 02/17/20 16:25: White Blood Count 8.9 Blood Pressure 123 /83 Mean: 96 02/17/20 16:25: Lactic Acid Level 1.98 Laboratory Tests 02/17/20 16:25: Creatinine 1.10, INR Comment 2.8H, Platelet Count 253, Total Bilirubin 0.8 Results/Orders Lab Results Laboratory Tests Test 02/17/20 16:25 02/17/20 16:33 Range/Units White Blood Count 8.9 4.3-11.0 10^3/uL Red Blood Count 4.33 L 4.35-5.85 10^6/uL Hemoglobin 14.2 11.5-16.0 G/DL Hematocrit 40 35-52 % Mean Corpuscular Volume 93 80-99 FL Mean Corpuscular Hemoglobin 33 25-34 PG Mean Corpuscular Hemoglobin Concent 35 32-36 G/DL Red Cell Distribution Width 14.8 H 10.0-14.5 % Platelet Count 253 130-400 10^3/uL Mean Platelet Volume 10.9 H 7.4-10.4 FL Neutrophils (%) (Auto) 80 H 42-75 % Lymphocytes (%) (Auto) 7 L 12-44 % Monocytes (%) (Auto) 11 0-12 % Eosinophils (%) (Auto) 2 0-10 % Basophils (%) (Auto) 0 0-10 % Neutrophils # (Auto) 7.1 1.8-7.8 X 10^3 Lymphocytes # (Auto) 0.6 L 1.0-4.0 X 10^3 Monocytes # (Auto) 1.0 0.0-1.0 X 10^3 Eosinophils # (Auto) 0.2 0.0-0.3 10^3/uL Basophils # (Auto) 0.0 0.0-0.1 10^3/uL Neutrophils % (Manual) 86 % Lymphocytes % (Manual) 10 % Monocytes % (Manual) 3 % Eosinophils % (Manual) 1 % Blood Morphology Comment NORMAL Prothrombin Time 29.9 H 12.2-14.7 SEC INR Comment 2.8 H 0.8-1.4 Activated Partial Thromboplast Time 40 H 24-35 SEC D-Dimer 0.85 H 0.00-0.49 UG/ML Blood Gas Puncture Site RRAD Blood Gas Patient Temperature 36.8 Arterial Blood pH 7.44 H 7.37-7.43 Arterial Blood Partial Pressure CO2 37 35-45 MMHG Arterial Blood Partial Pressure O2 145 H 79-93 MMHG Arterial Blood HCO3 25 23-27 MMOL/L Arterial Blood Total CO2 25.7 21.0-31.0 MMOL/L Arterial Blood Oxygen Saturation 99 94-100 % Arterial Blood Base Excess 0.8 -2.5-2.5 MMOL/L Wei Test POS Blood Gas Ventilator Setting NO Blood Gas Inspired Oxygen 15L Sodium Level 130 L 135-145 MMOL/L Potassium Level 4.5 3.6-5.0 MMOL/L Chloride Level 95 L 98-107 MMOL/L Carbon Dioxide Level 22 21-32 MMOL/L Anion Gap 13 5-14 MMOL/L Blood Urea Nitrogen 17 7-18 MG/DL Creatinine 1.10 0.60-1.30 MG/DL Estimat Glomerular Filtration Rate 49 BUN/Creatinine Ratio 15 Glucose Level 119 H 70-105 MG/DL Lactic Acid Level 1.98 0.50-2.00 MMOL/L Calcium Level 8.9 8.5-10.1 MG/DL Corrected Calcium 8.8 8.5-10.1 MG/DL Total Bilirubin 0.8 0.1-1.0 MG/DL Aspartate Amino Transf (AST/SGOT) 28 5-34 U/L Alanine Aminotransferase (ALT/SGPT) 20 0-55 U/L Alkaline Phosphatase 111 40-136 U/L C-Reactive Protein High Sensitivity 0.83 H 0.00-0.50 MG/DL Total Protein 7.0 6.4-8.2 GM/DL Albumin 4.1 3.2-4.5 GM/DL Procalcitonin 0.01 <0.10 NG/ML My Orders Orders - ROBERT MARIE Cbc With Automated Diff (02/17/20 16:26) Comprehensive Metabolic Panel (02/17/20 16:26) Blood Culture (02/17/20 16:) Sputum Culture (02/17/20 16:) Urinalysis (02/17/20 16:) Urine Culture (02/17/20 16:) Protime With Inr (02/17/20 16:) Partial Thromboplastin Time (02/17/20 16:26) Chest 1 View, Ap/Pa Only (02/17/20 16:26) Ed Iv/Invasive Line Start (02/17/20 16:26) Ed Iv/Invasive Line Start (02/17/20 16:26) Vital Signs Adult Sepsis Patie Q15M (02/17/20 16:26) O2 (02/17/20 16:26) Remove Rings In Anticipation O (02/17/20 16:26) Lactic Acid Analyzer (02/17/20 16:) Ns Iv 1000 Ml (Sodium Chloride 0.9%) (02/17/20 16:26) Albuterol Pre-Mix Nebs (Rt) (Proventil (02/17/20 16:26) Albuterol/Ipra Inhalation Soln (Duoneb I (02/17/20 16:30) Svn Small Volume Nebulizer (02/17/20 16:26) Arterial Blood Gas (02/17/20 16:26) Bipap (Bilevel) Set Up (02/17/20 16:26) Coronavirus Sars-Cov-2 So 2018 (02/17/20 16:30) Hs C Reactive Protein (02/17/20 16:36) Procalcitonin (Pct) (02/17/20 16:36) Manual Differential (02/17/20 16:25) Fibrin Degradation Products (02/17/20 16:25) Medications Given in ED Current Medications Medications Dose Ordered Sig/Maira Route Start Time Stop Time Status Last Admin Dose Admin Albuterol/ Ipratropium 3 ml ONCE ONCE INH 02/17/20 16:30 02/17/20 16:32 DC 02/17/20 17:16 3 ML Vital Signs/I&O 02/17/20 02/17/20 02/17/20 16:04 16:14 17:16 Temp 36.8 Pulse 116 108 Resp 20 25 B/P (MAP) 123/83 (96) Pulse Ox 97 98 100 O2 Delivery Non Rebreather Non Rebreather O2 Flow Rate 15.00 15.00 80.00 Capillary Refill : Less Than 3 Seconds Blood Pressure Mean: 96 Progress Note : Time: 17:36 Progress Note I suspect strongly this patient has COPD exacerbation and may have COVID-19 so we will not try to add a lot of IV fluids. She does have some pulmonary edema seen on chest x-ray. We will hold off on antibiotics we'll look for evidence of bacterial infection with pro-calcitonin, CRP, chest x-ray etc. ABG, sputum, urine. We'll hold off on steroids until we've seen all her labs back. Hour-long DuoNeb and albuterol 12.5 mg. We put her on BiPAP 15/5; 80% FiO2 with instructions to titrate to keep oxygen sats above 94% on 15 L nonrebreather she is maintaining 96-100%. COVID-19 swab. Pro-calcitonin, CRP and white count are all normal. Her elevated INR is likely due to her Xarelto usage. Plan to start her on 125 mg Solu-Medrol for COPD exacerbation. Diagnostic Imaging Diagonstic Imaging: Xray Plain Films/CT/US/NM/MRI: chest (1 view) Comments [facility]. [place], [place] NAME: DENVER JACOBSON [facility] REC#: [id number] PT STATUS: REG ER : 1945 PHYSICIAN: ROBERT MARIE MD ADMIT DATE: 02/17/20/ER Signed Date of Exam:02/17/20 CHEST 1 VIEW, AP/PA ONLY CHEST 1 VIEW, AP/PA ONLY INDICATION: Shortness of breath. COMPARISON: 12/25/2018. FINDINGS: Stable marked enlargement of the cardiac silhouette. Central vascular congestion is present. Hazy bilateral pulmonary opacities have worsened. No pneumothorax. No pleural effusion is appreciated. IMPRESSION: 1. Unchanged marked cardiomegaly with probable pulmonary edema. Superimposed infection cannot be excluded with this radiographic appearance. Dictated by: Dictated on workstation # [id number] Dict: 02/17/20 1642 Trans: 02/17/20 1720 [id number] [id number] Interpreted by: DAINA KEMP MD Electronically signed by: DAINA KEMP MD 02/17/201719 Reviewed: Reviewed by Me Departure Communication (Admissions) Time/Spoke to Admitting Phy: 17:40 Discussed the case with Dr. Londono. She agrees to accept the patient to the ICU for admission secondary to COPD exacerbation. She agrees with steroids and holding off antibiotics. She is aware that the patient is under investigation for COVID-19. Impression Primary Impression: COPD exacerbation Additional Impressions: Acute respiratory failure with hypoxia COVID-19 PUI Disposition: ADMITTED INPATIENT Condition: Stable Admissions Decision to Admit Reason: Admit from ER (General) Decision to Admit/Date: Feb 17, 2020 Time/Decision to Admit Time: 17:25 Departure-Patient Inst. Referrals: JONATHAN THOMAS MD (PCP/Family) Primary Care Physician ROBERT MARIE Feb 17, 2020 16:36
[2020-02-17 16:39] LABS: BASOPHILS % (AUTO) 0 % (0-10); EOSINOPHILS # (AUTO) 0.2 10^3/uL (0.0-0.3); EOSINOPHILS % (AUTO) 2 % (0-10); HEMATOCRIT 40 % (35-52); HEMOGLOBIN 14.2 G/DL (11.5-16.0); LYMPHOCYTES # (AUTO) 0.6 X 10^3 (1.0-4.0); LYMPHOCYTES % (AUTO) 7 % (12-44); MEAN CORPUSCULAR HEMOGLOBIN 33 PG (25-34); MEAN CORPUSCULAR HGB CONC 35 G/DL (32-36); MEAN CORPUSCULAR VOLUME 93 FL (80-99); MEAN PLATELET VOLUME 10.9 FL (7.4-10.4); MONOCYTES % (AUTO) 11 % (0-12); NEUTROPHILS # (AUTO) 7.1 X 10^3 (1.8-7.8); NEUTROPHILS % (AUTO) 80 % (42-75); PLATELET COUNT 253 10^3/uL (130-400); RED CELL DISTRIBUTION WIDTH 14.8 % (10.0-14.5); WHITE BLOOD COUNT 8.9 10^3/uL (4.3-11.0)
[2020-02-17 16:40] LABS: ABG BASE EXCESS 0.8 MMOL/L (-2.5-2.5); ABG OXYGEN SATURATION 99 % (94-100); ABG PCO2 37 MMHG (35-45); ABG PH 7.44 (7.37-7.43); ABG PO2 145 MMHG (79-93); ABG TCO2 25.7 MMOL/L (21.0-31.0)
[2020-02-17 16:42] LABS: ALLENS TEST POS; INSPIRED O2 15L; PATIENT TEMP 36.8; VENTILATOR NO
[2020-02-17 16:43] LABS: ALBUMIN 4.1 GM/DL (3.2-4.5)
[2020-02-17 16:44] LABS: POTASSIUM 4.5 MMOL/L (3.6-5.0)
[2020-02-17 16:45] LABS: CALCIUM 8.9 MG/DL (8.5-10.1)
[2020-02-17 16:48] LABS: BILIRUBIN,TOTAL 0.8 MG/DL (0.1-1.0)
[2020-02-17 16:49] LABS: CREATININE SERUM 1.1 MG/DL (0.60-1.30)
--- NOTE | 2020-02-17 16:53 | Diagnostic Imaging Report ---
CHEST 1 VIEW, AP/PA ONLY INDICATION: Shortness of breath. COMPARISON: 12/25/2018. FINDINGS: Stable marked enlargement of the cardiac silhouette. Central vascular congestion is present. Hazy bilateral pulmonary opacities have worsened. No pneumothorax. No pleural effusion is appreciated. IMPRESSION: 1. Unchanged marked cardiomegaly with probable pulmonary edema. Superimposed infection cannot be excluded with this radiographic appearance. Dictated by: Dictated on workstation # [id number]
[2020-02-17 16:58] LABS: FIBRIN DEGRADATION PRODUCTS 0.85 UG/ML (0.00-0.49); INR 2.8 (0.8-1.4); PROTHROMBIN TIME PATIENT 29.9 SEC (12.2-14.7)
[2020-02-17 17:23] LABS: EOSINOPHILS % (MANUAL) 1 %; LYMPHOCYTES % (MANUAL) 10 %; MONOCYTES % (MANUAL) 3 %; NEUTROPHILS % (MANUAL) 86 %; RBC MORPH NORMAL
[2020-02-17] MEDS ORDERED: RIVAROXABAN 20 MG TABLET (XARELTO) PO SCH (18:00)
[2020-02-17] MEDS ORDERED: ONDANSETRON 4 MG/2 ML (SDV) Z0FRAN IV PRN (18:30)
[2020-02-17] MEDS ORDERED: LORazepam INJ 2 MG/ML (ATIVAN) VIAL IV PRN (18:30)
[2020-02-17] MEDS ORDERED: ACETAMINOPHEN 500 MG TAB (TYLENOL) PO PRN (18:30)
[2020-02-17] MEDS ORDERED: CATHETER FLUSH 10 ML SYR IV PRN (18:30)
--- NOTE | 2020-02-17 18:56 | NUR ---
PT'S CONTACTED PER PT REQUEST AND GIVEN UPDATE ON PT CONDITION. CECELIA (): [phone]
[2020-02-17] MEDS: methylPREDNISolone 40 MG/ML (Solu-MEDROL) VIAL IV SCH ×2 (20:42→23:19)
[2020-02-17] MEDS: FUROSEMIDE 20 MG (LASIX) TAB PO SCH (20:42)
[2020-02-17] MEDS: SILDENAFIL 20 MG (REVATIO) TAB NON-FORMULARY PO SCH (20:43)
[2020-02-17] MEDS: CATHETER FLUSH 10 ML SYR IV SCH ×2 (20:43→21:44)
--- OUTSIDE RECORDS SUMMARY | 2020-02-17 21:39 | XMS REPORT | Continuity of Care Document ---
Demographics Preferred Language Unknown Marital Status Unknown Latter-Day Affiliation Unknown Race Unknown Ethnic Group Unknown Author Organization Unknown Address Unknown Phone Unavailable Allergies Active Description Code Type Severity Reaction Onset Reported/Identified Relationship to Patient Clinical Status Yes VALTREX UNKNOWN UNKNOWN Yes valacyclovir HCl [id number] Drug Allergy Unknown RASH 08/30/2014 Medications There is no data. Problems Date Dx Coded Attending Type Code Diagnosis Diagnosed By 2012 Ot 244.9 HYPO THYROIDISM NOS 2012 Ot 272.4 HYPE RLIPIDEMIA NEC/NOS 2012 Ot 401.9 HYPE RTENSION NOS 2012 Ot 427.31 ATR IAL FIBRILLATION 2012 Ot 786.09 RES PIRATORY ABNORM NEC 09/12/2012 Ot 784.7 EPIS TAXIS 08/22/2014 Ot 427.31 08/30/2014 JIM MEAD MD Ot 244.9 HYPOTHYROIDISM NOS 08/30/2014 JIM MEAD MD Ot 272.0 PURE HYPERCHOLESTEROLEM 08/30/2014 JIM MEAD MD Ot 401.9 HYPERTENSION NOS 08/30/2014 JIM MEAD MD Ot 427.31 ATRIAL FIBRILLATION 08/30/2014 JIM MEAD MD Ot 455.0 INT HEMORRHOID W/O COMPL 08/30/2014 JIM MEAD MD Ot 455.3 EXT HEMORRHOID W/O COMPL 08/30/2014 JIM MEAD MD Ot 562.10 DIVERTICULOSIS COLON (W/O MENT OF HEMORR 08/30/2014 JIM MEAD MD Ot V76.51 SCREEN MAL NEOP-COLON 09/06/2014 LOUISE SPARROW MD Ot 272. 4 09/06/2014 LOUISE SPARROW MD Ot 397. 0 09/06/2014 LOUISE SPARROW MD Ot 401. 9 09/06/2014 LOUISE SPARROW MD Ot 416. 8 09/06/2014 LOUISE SPARROW MD Ot 424. 0 09/06/2014 LOUISE SPARROW MD Ot 427. 31 09/06/2014 LOUISE SPARROW MD Ot 429. 9 09/06/2014 LOUISE SPARROW MD Ot 433. 10 09/12/2014 LOUISE SPARROW MD Ot 272. 4 09/12/2014 LOUISE SPARROW MD Ot 397. 0 09/12/2014 LOUISE SPARROW MD Ot 401. 9 09/12/2014 LOUISE SPARROW MD Ot 416. 8 09/12/2014 LOUISE SPARROW MD Ot 424. 0 09/12/2014 LOUISE SPARROW MD Ot 427. 31 09/12/2014 LOUISE SPRAROW MD Ot 429. 9 09/12/2014 LOUISE SPARROW MD Ot 433. 10 11/14/2014 LOUISE SPARROW MD Ot 272. 0 PURE HYPERCHOLESTEROLEM 11/14/2014 LOUISE SPARROW MD Ot 272. 4 HYPERLIPIDEMIA NEC/NOS 11/14/2014 LOUISE SPARROW MD Ot 276. 1 HYPOSMOLALITY 11/14/2014 LOUISE SPARROW MD Ot 276. 7 HYPERPOTASSEMIA 11/14/2014 LOUISE SPARROW MD Ot 401. 9 HYPERTENSION NOS 11/14/2014 LOUISE SPARROW MD Ot 416. 8 CHR PULMON HEART DIS NEC 11/14/2014 LOUISE SPARROW MD Ot 427. 31 ATRIAL FIBRILLATION 11/14/2014 LOUISE SPARROW MD Ot 428. 0 CONGESTIVE HEART FAILURE NOS 11/14/2014 LOUISE SPARROW MD Ot 428. 33 ACUTE CHRONIC DIASTOLIC HRT FAILURE 11/14/2014 LOUISE SPARROW MD Ot 443. 0 RAYNAUD'S SYNDROME 11/14/2014 LOUISE SPARROW MD Ot 493. 20 CHRONIC OBSTRUCTIVE ASTHMA, NOS 11/14/2014 LOUISE SPARROW MD Ot 845. 00 SPRAIN OF ANKLE NOS 11/14/2014 LOUISE SPARROW MD Ot E000 .8 OTHER EXTERNAL CAUSE STATUS 11/14/2014 LOUISE SPARROW MD Ot E001 .0 ACTIVITIES INVOLVING WALKING, MARCHING A 11/14/2014 LOUISE SPARROW MD Ot E927 .0 OVEREXERTION FROM SUDDEN STRENUOUS MOVEM 11/14/2014 LOUISE SPARROW MD Ot E942 .1 ADV EFF CARDIOTONICS 11/14/2014 LOUISE SPARROW MD Ot V12. 29 PERSONAL HX OF [facility] ENDOCRINE, METABOLIC 11/14/2014 ANDREWS SZYMANSKI, LOUISE Snyder Ot V15. 82 HISTORY OF TOBACCO USE 11/14/2014 ANDREWS SZYMANSKI, LOUISE Snyder Ot V58. 61 ANTICOAGULANTS,LT,CURRENT USE 11/14/2014 ANDREWS SZYMANSKI, LOUISE J Ot 272. 0 11/14/2014 LOUISE SPARROW MD Ot 272. 4 11/14/2014 LOUISE SPARROW MD Ot 276. 1 11/14/2014 ANDREWS SZYMANSKI, LOUISE J Ot 276. 7 11/14/2014 ANDREWS SZYMANSKI, LOUISE J Ot 401. 9 11/14/2014 LOUISE SPARROW MD Ot 416. 8 11/14/2014 LOUISE SPARROW MD Ot 427. 31 11/14/2014 LOUISE SPARROW MD J Ot 428. 0 11/14/2014 LOUISE SPARROW MD Ot 428. 33 11/14/2014 LOUISE SPARROW MD Ot 443. 0 11/14/2014 LOUISE SPARROW MD Ot 493. 20 11/14/2014 LOUISE SPARROW MD Ot 845. 00 11/14/2014 LOUISE SPARROW MD Ot E001 .0 11/14/2014 LOUISE SPARROW MD Ot E927 .0 11/14/2014 LOUISE SPARROW MD Ot E942 .1 11/14/2014 LOUISE SPARROW MD Ot V12. 29 11/14/2014 LOUISE SPARROW MD Ot V15. 82 11/14/2014 LOUISE SPARROW MD Ot V58. 61 12/27/2014 Ot 427.31 12/27/2014 JIM MEAD MD Ot V72.84 12/27/2014 LOUISE SPARROW MD Ot 272. 4 12/27/2014 LOUISE SPARROW MD Ot 397. 0 12/27/2014 LOUISE SPARROW MD Ot 401. 9 12/27/2014 LOUISE SPARROW MD J Ot 416. 8 12/27/2014 LOUISE SPARROW MD J Ot 424. 0 12/27/2014 LOUISE SPARROW MD Ot 427. 31 12/27/2014 LOUISE SPARROW MD Ot 429. 9 12/27/2014 LOUISE SPARROW MD J Ot 433. 10 12/27/2014 AMBROSIO KUMAR DO Ot 786. 09 12/29/2014 JOSÉAMBROSIO MOORE DO Ot 496 01/15/2015 AMBROSIO KUMAR DO Ot 496 01/19/2015 JOSÉAMBROSIO MOORE DO Ot 786. 09 01/22/2015 ANJU STANFORD MD Ot 789.01 01/22/2015 ANJU STANFORD MD Ot [...] REBOLLAR DO Ot 427.31 ATRIAL FIBRILLATION 04/26/2015 [place] REBOLLAR DOI Ot 428.0 CONGESTIVE HEART FAILURE NOS 04/26/2015 ANAT REBOLLAR DO Ot 428.33 ACUTE CHRONIC DIASTOLIC HRT FAILURE 04/26/2015 ANAT REBOLLAR DO Ot 433.10 CAROTID ARTERY OCCLUSION W O CEREBRAL IN 04/26/2015 ANAT REBOLLAR DO Ot 433.30 MULT BILTRAL ARTERY OCCLUSION WO CEREBRA 04/26/2015 ANAT REBOLLAR DO Ot 443.0 RAYNAUD'S SYNDROME 04/26/2015 REBOLLAR DO, ANAT Ot 493.90 ASTHMA, UNSPECIFIED 04/26/2015 SMOOTH DO, ANAT Ot 518.82 OTHER PULMONARY INSUFFICIENCY, NEC 04/26/2015 SMOOTH NEWMAN, ANAT Ot 845.00 SPRAIN OF ANKLE NOS 04/26/2015 SMOOTH NEWMAN, ANAT Ot E000.8 OTHER EXTERNAL CAUSE STATUS 04/26/2015 SMOOTH NEWMAN, ANAT Ot E928.9 ACCIDENT NOS 04/26/2015 SMOOTH NEWMAN, ANAT Ot V15.81 HX OF PAST NONCOMPLIANCE 05/01/2015 NIKOS SZYMANSKI, ANGELA Clark Ot 038 .9 05/01/2015 NIKOS SZYMANSKI, ANGELA F Ot 244 .9 05/01/2015 NIKOS SZYMANSKI, ANGELA F Ot 272 .4 05/01/2015 NIKOS SZYMANSKI, ANGELA F Ot 401 .9 05/01/2015 NIKOS SZYMANSKI, ANGELA F Ot 416 .8 05/01/2015 NIKOS SZYMANSKI, ANGELA F Ot 424 .0 05/01/2015 NIKOS SZYMANSKI, ANGELA F Ot 427.31 05/01/2015 NIKOS SZYMANSKI, ANGELA F Ot 428 .0 05/01/2015 NIKOS SZYMANSKI, ANGELA F Ot 428.33 05/01/2015 NIKOS SZYMANSKI, ANGELA F Ot 433.10 05/01/2015 NIKOS SZYMANSKI, ANGELA F Ot 433.30 05/01/2015 NIKOS SZYMANSKI, ANGELA F Ot 486 05/01/2015 NIKOS SZYMANSKI, ANGELA F Ot 493.22 05/01/2015 NIOKS SZYMANSKI, ANGELA F Ot 799.02 05/01/2015 NIKOS SZYMANSKI, ANGELA F Ot 995.91 05/01/2015 NIKOS SZYMANSKI, ANGELA F Ot V15.82 05/01/2015 NIKOS SZYMANSKI, ANGELA F Ot V46 .2 05/02/2015 NIKOS SZYMANSKI, ANGELA F Ot 038 .9 05/02/2015 NIKOS SZYMANSKI, ANGELA F Ot 244 .9 05/02/2015 NIKOS SZYMANSKI, ANGELA F Ot 272 .4 05/02/2015 NIKOS SZYMANSKI, ANGELA F Ot 401 .9 05/02/2015 NIKOS SZYMANSKI, ANGELA F Ot 416 .8 05/02/2015 NIKOS SZYMANSKI, ANGELA F Ot 424 .0 05/02/2015 NIKOS SZYMANSKI, ANGELA F Ot 427.31 05/02/2015 NIKOS SZYMANSKI, ANGELA F Ot 428 .0 05/02/2015 NIKOS SZYMANSKI, ANGELA F Ot 428.33 05/02/2015 NIKOS SZYMANSKI, ANGELA F Ot 433.10 05/02/2015 NIKOS SZYMANSKI, ANGELA F Ot 433.30 05/02/2015 NIKOS SZYMANSKI, ANGELA F Ot 486 05/02/2015 NIKOS SZYMANSKI, ANGELA F Ot 493.22 05/02/2015 NIKOS SZYMANSKI, ANGELA F Ot 799.02 05/02/2015 NIKOS SZYMANSKI, ANGELA F Ot 995.91 05/02/2015 NIKOS SZYMANSKI, ANGELA F Ot V15.82 05/02/2015 NIKOS SZYMANSKI, ANGELA F Ot V46 .2 05/03/2015 NIKOS SZYMANSKI, ANGELA F Ot 038 .9 05/03/2015 NIKOS SZYMANSKI, ANGELA F Ot 244 .9 05/03/2015 NIKOS SZYMANSKI, ANGELA F Ot 272 .4 05/03/2015 NIKOS SZYMANSKI, ANGELA F Ot 401 .9 05/03/2015 NIKOS SZYMANSKI, ANGELA F Ot 416 .8 05/03/2015 NIKOS SZYMANSKI, ANGELA F Ot 424 .0 05/03/2015 NIKOS SZYMANSKI, ANGELA F Ot 427.31 05/03/2015 NIKOS SZYMANSKI, ANGELA F Ot 428 .0 05/03/2015 NIKOS SZYMANSKI, ANGELA F Ot 428.33 05/03/2015 NIKOS SZYMANSKI, ANGELA F Ot 433.10 05/03/2015 NIKOS SZYMANSKI, ANGELA F Ot 433.30 05/03/2015 NIKOS SZYMANSKI, ANGELA F Ot 486 05/03/2015 NIKOS SZYMANSKI, ANGELA F Ot 493.22 05/03/2015 NIKOS SZYMANSKI, ANGELA F Ot 799.02 05/03/2015 NIKOS SZYMANSKI, ANGELA F Ot 995.91 05/03/2015 NIKOS SZYMANSKI, ANGELA F Ot V15.82 05/03/2015 NIKOS SZYMANSKI, ANGELA F Ot V46 .2 05/03/2015 NIKOS SZYMANSKI, AGNELA F Ot A41 .9 SEPSIS, UNSPECIFIED ORGANISM 05/03/2015 NIKOS SZYMANSKI, NAGELA F Ot E03 .9 HYPOTHYROIDISM, UNSPECIFIED 05/03/2015 NIKOS SZYMANSKI, ANGELA F Ot E78 .0 PURE HYPERCHOLESTEROLEMIA 05/03/2015 ANGELA KNOTT MD Ot E78 .5 HYPERLIPIDEMIA, UNSPECIFIED 05/03/2015 ANGELA KNOTT MD, Ot G47.00 INSOMNIA, UNSPECIFIED 05/03/2015 ANGELA KNOTT MD Ot I10 ESSENTIAL (PRIMARY) HYPERTENSION 05/03/2015 ANGELA KNOTT MD, Ot I27 .2 OTHER SECONDARY PULMONARY HYPERTENSION 05/03/2015 ANGELA KNOTT MD, Ot I27.81 COR PULMONALE (CHRONIC) 05/03/2015 ANGELA KNOTT MD Ot I34 .0 NONRHEUMATIC MITRAL (VALVE) INSUFFICIENC 05/03/2015 ANGELA KNOTT MD, Ot I48.91 UNSPECIFIED ATRIAL FIBRILLATION 05/03/2015 ANGELA KNOTT MD, Ot I50.33 ACUTE ON CHRONIC DIASTOLIC (CONGESTIVE) 05/03/2015 ANGELA KNOTT MD, Ot I65.23 OCCLUSION AND STENOSIS OF BILATERAL [place] 05/03/2015 ANGELA KNOTT MD Ot 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 05/03/2015 ANGELA KNOTT MD, Ot J18 .9 PNEUMONIA, UNSPECIFIED ORGANISM 05/03/2015 ANGELA KNOTT MD, Ot J44 .1 CHRONIC OBSTRUCTIVE PULMONARY DISEASE W 05/03/2015 ANGELA KNOTT MD, Ot K21 .9 GASTRO-ESOPHAGEAL REFLUX DISEASE WITHOUT 05/03/2015 ANGELA KNOTT MD, Ot N17 .9 ACUTE KIDNEY FAILURE, UNSPECIFIED 05/03/2015 ANGELA KNOTT MD Ot R09.02 HYPOXEMIA 05/03/2015 ANGELA KNOTT MD, Ot 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 05/03/2015 ANGELA KNOTT MD Ot Z87.891 PERSONAL HISTORY OF NICOTINE DEPENDENCE 05/03/2015 ANGELA KNOTT MD, Ot Z99.81 DEPENDENCE ON SUPPLEMENTAL OXYGEN 05/28/2015 Ot 427.31 05/28/2015 JIM MEAD MD Ot V72.84 05/28/2015 LOUISE SPARROW MD Ot 272. 4 05/28/2015 LOUISE SPARROW MD Ot 397. 0 05/28/2015 LOUISE SPARROW MD Ot 401. 9 05/28/2015 LOUISE SPARROW MD Ot 416. 8 05/28/2015 LOUISE SPARROW MD Ot 424. 0 05/28/2015 ANDREWS SZYMANSKI, LOUISE Snyder Ot 427. 31 05/28/2015 ANDREWS SZYMANSKI, LOUISE Snyder Ot 429. 9 05/28/2015 ANDREWS SZYMANSKI, LOUISE Snyder Ot 433. 10 05/28/2015 AMBROSIO KUMAR DO Ot 786. 09 05/28/2015 JOSÉ NEWMAN, AMBROSIO Keys Ot 496 05/28/2015 ANJU STANFORD MD Ot 789.01 05/28/2015 ANJU STANFORD MD Ot 789.06 05/28/2015 BOSTON SZYMANSKI, JIM Ot [...] J96.21 2015 OSCAR DO, ELANA K Ot Z87.89 1 07/01/2015 OSCAR DO, ELANA K Ot D50.9 [...] J96.21 07/01/2015 OSCAR DO, ELANA K Ot Z87.89 1 07/02/2015 OSCAR DO, ELANA K Ot D50.9 [...] J96.21 07/02/2015 OSCAR DO, ELANA K Ot Z87.89 1 07/02/2015 OSCAR DO, ELANA K Ot D50.9 [...] J96.21 07/02/2015 OSCAR DO, ELANA K Ot Z87.89 1 07/02/2015 OSCAR DO, ELANA K Ot D50.9 IRON DEFICIENCY ANEMIA, UNSPECIFIED 07/02/2015 OSCAR DO, ELANA K Ot E03.9 HYPOTHYROIDISM, UNSPECIFIED 07/02/2015 ELANA OSCAR DO Ot E78.5 HYPERLIPIDEMIA, UNSPECIFIED 07/02/2015 ELANA OSCAR DO Ot E83.41 HYPERMAGNESEMIA 07/02/2015 ELAAN OSCAR DO Ot E87.1 HYPO-OSMOLALITY AND HYPONATREMIA 07/02/2015 ELANA OSCAR DO Ot E87.6 HYPOKALEMIA 07/02/2015 ELANA OSCAR DO Ot F24 SHARED PSYCHOTIC DISORDER 07/02/2015 ABDI OSCAR DOA K Ot I10 ESSENTIAL (PRIMARY) HYPERTENSION 07/02/2015 ABDI OSCAR DOA K Ot I27.2 OTHER SECONDARY PULMONARY HYPERTENSION 07/02/2015 ELANA OSCAR DO K Ot I34.0 NONRHEUMATIC MITRAL (VALVE) INSUFFICIENC 07/02/2015 ELANA OSCAR DO K Ot I48.91 UNSPECIFIED ATRIAL FIBRILLATION 07/02/2015 ELANA OSCAR DO K Ot I50.32 CHRONIC DIASTOLIC (CONGESTIVE) HEART ROB 07/02/2015 ELANA OSCAR DO Ot 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 07/02/2015 ELANA OSCAR DO Ot J44.1 CHRONIC OBSTRUCTIVE PULMONARY DISEASE W 07/02/2015 ELANA OSCAR DO Ot J96.21 ACUTE AND CHRONIC RESPIRATORY FAILURE [place] 07/02/2015 ELANA OSCAR DO Ot Z87.89 1 PERSONAL HISTORY OF NICOTINE DEPENDENCE 08/08/2015 LOUISE SPARROW MD Ot E78. 2 08/08/2015 LOUISE SPARROW MD Ot I10 08/08/2015 LOUISE SPARROW MD Ot I48. 0 08/08/2015 LOUISE SPARROW MD Ot R06. 02 08/08/2015 LOUISE SPARROW MD Ot E78. 5 HYPERLIPIDEMIA, UNSPECIFIED 08/08/2015 LOUISE SPARROW MD Ot I10 ESSENTIAL (PRIMARY) HYPERTENSION 08/08/2015 LOUISE SPARROW MD Ot I25. 10 ATHSCL HEART DISEASE OF [place] CORONARY 08/08/2015 LOUISE SPARROW MD Ot I27. 2 OTHER SECONDARY PULMONARY HYPERTENSION 08/08/2015 LOUISE SPARROW MD Ot I48. 0 PAROXYSMAL ATRIAL FIBRILLATION 08/08/2015 LOUISE SPARROW MD Ot I50. 30 UNSPECIFIED DIASTOLIC (CONGESTIVE) HEART 08/08/2015 LOUISE SPARROW MD Ot J44. 9 CHRONIC OBSTRUCTIVE PULMONARY DISEASE, U 08/08/2015 LOUISE SPARROW MD Ot R94. 39 ABNORMAL RESULT OF OTHER CARDIOVASCULAR 08/08/2015 LOUISE SPARROW MD Ot Z79.899 OTHER STRUCTURAL ENGINEERING PROJECT MANAGER (CURRENT) DRUG THERAPY 08/08/2015 LOUISE SPARROW MD Ot Z87.891 PERSONAL HISTORY OF NICOTINE DEPENDENCE 08/28/2015 AMBROSIO KUMAR DO Ot G47. 36 SLEEP RELATED HYPOVENTILATION IN [place] 08/28/2015 AMBROSIO KUMAR DO Ot R06. 83 SNORING 09/20/2015 LOUISE SPARROW MD Ot I65. 23 10/09/2015 RAJAT GRIGSBY APRN Ot I27.2 10/09/2015 RAJAT GRIGSBY CLASSIFICATION INSPECTOR Ot J43.9 10/09/2015 RAJAT GRIGSBY APRN Ot R09.02 10/23/2015 LOUISE SPARROW MD Ot I10 10/23/2015 LOUISE SPARROW MD Ot I27. 2 11/13/2015 RAJAT GRIGSBY CLASSIFICATION INSPECTOR Ot I27.2 11/13/2015 RAJAT GRIGSBY APRN Ot J43.9 11/13/2015 RAJAT GRIGSBY APRN Ot R09.02 11/24/2015 Ot 427.31 ATR IAL FIBRILLATION 11/24/2015 BOSTON SZYMANSKI, JIM Ot V72.84 EXAM PRE-OPERATIVE NOS 11/24/2015 LOUISE SPARROW MD Ot 272. 4 HYPERLIPIDEMIA NEC/NOS 11/24/2015 LOUISE SPARROW MD Ot 397. 0 TRICUSPID VALVE DISEASE 11/24/2015 LOUISE SPARROW MD Ot 401. 9 HYPERTENSION NOS 11/24/2015 LOUISE SPARROW MD Ot 416. 8 CHR PULMON HEART DIS NEC 11/24/2015 LOUISE SPARROW MD Ot 424. 0 MITRAL VALVE DISORDER 11/24/2015 LOUISE SPARROW MD Ot 427. 31 ATRIAL FIBRILLATION 11/24/2015 LOUISE SPARROW MD Ot 429. 9 HEART DISEASE NOS 11/24/2015 LOUISE SPARROW MD Ot 433. 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 09 RESPIRATORY ABNORM NEC 11/24/2015 AMBROSIO KUMAR DO Ot 496 CHR AIRWAY OBSTRUCT NEC 11/24/2015 ABDOULAYE SZYMANSKI, ANJU Melara Ot 789.01 ABDOMINAL PAIN, RIGHT UPPER QUADRANT 11/24/2015 ANJU STANFORD MD Ot 789.06 ABDOMINAL PAIN, EPIGASTRIC 11/24/2015 BOSTON SZYMANSKI, JIM Ot V72.84 EXAM PRE-OPERATIVE NOS 11/24/2015 LOUISE SPARROW MD Ot E78. 2 MIXED HYPERLIPIDEMIA 11/24/2015 LOUISE SPARROW MD Ot I10 ESSENTIAL (PRIMARY) HYPERTENSION 11/24/2015 LOUISE SPARROW MD Ot I48. 0 PAROXYSMAL ATRIAL FIBRILLATION 11/24/2015 LOUISE SPARROW MD Ot R06. 02 SHORTNESS OF BREATH 11/24/2015 RAJAT GRIGSBY APRN Ot I27.2 OTHER SECONDARY PULMONARY HYPERTENSION 11/24/2015 RAJAT GRIGSBY APRN Ot J43.9 EMPHYSEMA, UNSPECIFIED 11/24/2015 RAJAT GRIGSBY APRN Ot R09.02 HYPOXEMIA 11/24/2015 LOUISE SPARROW MD Ot I65. 23 OCCLUSION AND STENOSIS OF BILATERAL [place] 11/24/2015 LOUISE SPARROW MD Ot I10 ESSENTIAL (PRIMARY) HYPERTENSION 11/24/2015 LOUISE SPARROW MD Ot I27. 2 OTHER SECONDARY PULMONARY HYPERTENSION 11/24/2015 GEORGETTE SHIELDS MD Ot D64 .9 ANEMIA, UNSPECIFIED 11/24/2015 GEORGETTE SHIELDS MD Ot E03 .9 HYPOTHYROIDISM, UNSPECIFIED 11/24/2015 GEORGETTE SHIELDS MD Ot F17.210 NICOTINE DEPENDENCE, CIGARETTES, UNCOMPL 11/24/2015 GEORGETTE SHIELDS MD Ot I10 ESSENTIAL (PRIMARY) HYPERTENSION 11/24/2015 GEORGETTE SHIELDS MD Ot I27 .2 OTHER SECONDARY PULMONARY HYPERTENSION 11/24/2015 GEORGETTE SHIELDS MD Ot I48 .2 CHRONIC ATRIAL FIBRILLATION 11/24/2015 GEORGETTE SHIELDS MD Ot J44 .9 CHRONIC OBSTRUCTIVE PULMONARY DISEASE, U 11/24/2015 GEORGETTE SHIELDS MD Ot K21 .9 GASTRO-ESOPHAGEAL REFLUX DISEASE WITHOUT 11/24/2015 GEORGETTE SHIELDS MD Ot R04 .0 EPISTAXIS 11/24/2015 GEORGETTE SHIELDS MD Ot Z95.820 PERIPHERAL VASCULAR ANGIOPLASTY STATUS W 11/24/2015 GEORGETTE SHIELDS MD Ot Z99.81 DEPENDENCE ON SUPPLEMENTAL OXYGEN 12/07/2015 TUNG SAVAGE MD Ot R04 .0 EPISTAXIS 12/10/2015 TUNG SAVAGE MD Ot R04 .0 EPISTAXIS 01/06/2016 RAJAT GRIGSBY APRN Ot I27.2 OTHER SECONDARY PULMONARY HYPERTENSION 01/06/2016 RAJAT GRIGSBY APRN Ot J43.9 EMPHYSEMA, UNSPECIFIED 01/06/2016 RAJAT GRIGSBY APRN Ot R09.02 HYPOXEMIA 02/05/2016 SKYE [...] ALVE 02/05/2016 SKYE GARCIA MD Ot 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 02/05/2016 SKYE GARCIA MD Ot Z79.02 STRUCTURAL ENGINEERING PROJECT MANAGER (CURRENT) USE OF ANTITHROMBOTI 02/05/2016 SKYE GARCIA MD Ot Z95.5 PRESENCE OF CORONARY ANGIOPLASTY IMPLANT 02/07/2016 SKYE GARCIA MD Ot I48.2 CHRONIC ATRIAL FIBRILLATION 02/07/2016 SKYE GARCIA MD Ot K06.8 OTH DISRD OF [place] AND EDENTULOUS ALVE 02/07/2016 SKYE GARCIA MD Ot 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 02/07/2016 SKYE GARCIA MD Ot Z79.02 SHELTER (CURRENT) USE OF ANTITHROMBOTI 02/19/2016 RAJAT GRIGSBY APRN Ot I27.2 OTHER SECONDARY PULMONARY HYPERTENSION 02/19/2016 RAJAT GRIGSBY APRN Ot J43.9 EMPHYSEMA, UNSPECIFIED 02/19/2016 RAJAT GRIGSBY APRN Ot R09.02 HYPOXEMIA 03/04/2016 AMBROSIO KUMAR DO Ot I27. 2 OTHER SECONDARY PULMONARY HYPERTENSION 03/04/2016 AMBROSIO KUMAR DO Ot J43. 9 EMPHYSEMA, UNSPECIFIED 03/04/2016 JOSÉ DOMYLESAMBROSIO M Ot R06. 02 SHORTNESS OF BREATH 03/04/2016 JOSÉ DOAMBROSIO M Ot R09. 02 HYPOXEMIA 03/05/2016 JOSÉ DOMYLESAMBROSIO M Ot I27. 2 OTHER SECONDARY PULMONARY HYPERTENSION 03/05/2016 JOSÉ DOAMBROSIO Ot J43. 9 EMPHYSEMA, UNSPECIFIED 03/05/2016 JOSÉ DOAMBROSIO Ot R06. 02 SHORTNESS OF BREATH 03/05/2016 JOSÉ AMBROSIO NEWMAN Ot R09. 02 HYPOXEMIA 03/13/2016 JOSÉ MYLES NEWMANSON M Ot I27. 2 OTHER SECONDARY PULMONARY HYPERTENSION 03/13/2016 AMBROSIO KUMAR DO Ot J43. 9 EMPHYSEMA, UNSPECIFIED 03/13/2016 JOSÉ DOAMBROSIO Ot R06. 02 SHORTNESS OF BREATH 03/13/2016 JOSÉ AMBROSIO NEWMAN Ot R09. 02 HYPOXEMIA 03/14/2016 RAJAT GRIGSBY APRN Ot I27.2 OTHER SECONDARY PULMONARY HYPERTENSION 03/14/2016 RAJAT GRIGSBY CLASSIFICATION INSPECTOR Ot J43.9 EMPHYSEMA, UNSPECIFIED 03/14/2016 RAJAT GRIGSBY APRN Ot R09.02 HYPOXEMIA 03/28/2016 Ot 427.31 ATR IAL FIBRILLATION 03/28/2016 BOSTON SZYMANSKI, JIM Ot V72.84 EXAM PRE-OPERATIVE NOS 03/28/2016 LOUISE SPARROW MD Ot 272. 4 HYPERLIPIDEMIA NEC/NOS 03/28/2016 LOUISE SPARROW MD Ot 397. 0 TRICUSPID VALVE DISEASE 03/28/2016 LOUISE SPARROW MD Ot 401. 9 HYPERTENSION NOS 03/28/2016 LOUISE SPARROW MD Ot 416. 8 CHR PULMON HEART DIS NEC 03/28/2016 LOUISE SPARROW MD Ot 424. 0 MITRAL VALVE DISORDER 03/28/2016 LOUISE SPARROW MD Ot 427. 31 ATRIAL FIBRILLATION 03/28/2016 LOUISE SPARROW MD Ot 429. 9 HEART DISEASE NOS 03/28/2016 LOUISE SPARROW MD Ot 433. 10 CAROTID ARTERY OCCLUSION W O CEREBRAL IN 03/28/2016 AMBROSIO KUMAR DO Ot 786. 09 RESPIRATORY ABNORM NEC 03/28/2016 AMBROSIO KUMAR DO Ot 496 CHR AIRWAY OBSTRUCT NEC 03/28/2016 ABDOULAYE SZYMANSKI, ANJU Melara Ot 789.01 ABDOMINAL PAIN, RIGHT UPPER QUADRANT 03/28/2016 ANJU STANFORD MD Ot 789.06 ABDOMINAL PAIN, EPIGASTRIC 03/28/2016 BOSTON SZYMANSKI, JIM Ot V72.84 EXAM PRE-OPERATIVE NOS 03/28/2016 LOUISE SPARROW MD Ot E78. 2 MIXED HYPERLIPIDEMIA 03/28/2016 LOUISE SPARROW MD Ot I10 ESSENTIAL (PRIMARY) HYPERTENSION 03/28/2016 LOUISE SPARROW MD Ot I48. 0 PAROXYSMAL ATRIAL FIBRILLATION 03/28/2016 LOUISE SPARROW MD Ot R06. 02 SHORTNESS OF BREATH 03/28/2016 LOUISE SPARROW MD Ot I65. 23 OCCLUSION AND STENOSIS OF BILATERAL [place] 03/28/2016 LOUISE SPARROW MD Ot I10 ESSENTIAL (PRIMARY) HYPERTENSION 03/28/2016 LOUISE SPARROW MD Ot I27. 2 OTHER SECONDARY PULMONARY HYPERTENSION 03/28/2016 RAJAT GRIGSBY APRN Ot I27.2 OTHER SECONDARY PULMONARY HYPERTENSION 03/28/2016 RAJAT GRIGSBY CLASSIFICATION INSPECTOR Ot J43.9 EMPHYSEMA, UNSPECIFIED 03/28/2016 RAJAT GRIGSBY APRN Ot R09.02 HYPOXEMIA 03/28/2016 RAJAT GRIGSBY CLASSIFICATION INSPECTOR Ot I27.2 OTHER SECONDARY PULMONARY HYPERTENSION 03/28/2016 RAJAT GRIGSBY CLASSIFICATION INSPECTOR Ot J43.9 EMPHYSEMA, UNSPECIFIED 03/28/2016 RAJAT GRIGSBY APRN Ot R09.02 HYPOXEMIA 03/28/2016 AMBROSIO KUMAR DO Ot I27. 2 OTHER SECONDARY PULMONARY HYPERTENSION 03/28/2016 AMBROSIO KUMAR DO Ot J43. 9 EMPHYSEMA, UNSPECIFIED 03/28/2016 AMBROSIO KUMAR DO Ot R06. 02 SHORTNESS OF BREATH 03/28/2016 AMBROSIO KUMAR DO Ot R09. 02 HYPOXEMIA 03/31/2016 JELANI KONG, KARON K Ot [...] STENOSIS OF BILATERAL [place] 04/07/2016 RAJAT GRIGSBY CLASSIFICATION INSPECTOR Ot I27.2 OTHER SECONDARY PULMONARY HYPERTENSION 04/07/2016 RAJAT GRIGSBY CLASSIFICATION INSPECTOR Ot J43.9 EMPHYSEMA, UNSPECIFIED 04/07/2016 RAJAT GRIGSBY CLASSIFICATION INSPECTOR Ot R09.02 HYPOXEMIA 04/08/2016 RAJAT GRIGSBY CLASSIFICATION INSPECTOR Ot I27.2 OTHER SECONDARY PULMONARY HYPERTENSION 04/08/2016 RAJAT GRIGSBY CLASSIFICATION INSPECTOR Ot J43.9 EMPHYSEMA, UNSPECIFIED 04/08/2016 RAJAT GRIGSBY CLASSIFICATION INSPECTOR Ot R09.02 HYPOXEMIA 04/09/2016 RAJAT GRIGSBY CLASSIFICATION INSPECTOR Ot I27.2 OTHER SECONDARY PULMONARY HYPERTENSION 04/09/2016 RAJAT GRIGSBY CLASSIFICATION INSPECTOR Ot J43.9 EMPHYSEMA, UNSPECIFIED 04/09/2016 RAJAT GRIGSBY CLASSIFICATION INSPECTOR Ot R09.02 HYPOXEMIA 04/09/2016 JELANI KONG, KARON K Ot E78.2 MIXED HYPERLIPIDEMIA 04/09/2016 JELANI KONG, KARON K Ot I10 ESSENTIAL (PRIMARY) HYPERTENSION 04/09/2016 JELANI KONG, KARON K Ot I50.32 CHRONIC DIASTOLIC (CONGESTIVE) HEART ROB 04/09/2016 JELANI KONG, KARON K Ot I65.23 OCCLUSION AND STENOSIS OF BILATERAL [place] 04/14/2016 RAJAT GRIGSBY CLASSIFICATION INSPECTOR Ot I27.2 OTHER SECONDARY PULMONARY HYPERTENSION 04/14/2016 RAJAT GRIGSBY CLASSIFICATION INSPECTOR Ot J43.9 EMPHYSEMA, UNSPECIFIED 04/14/2016 RAJAT GRIGSBY CLASSIFICATION INSPECTOR Ot R09.02 HYPOXEMIA 05/14/2016 RAJAT GRIGSBY CLASSIFICATION INSPECTOR Ot I27.2 OTHER SECONDARY PULMONARY HYPERTENSION 05/14/2016 SEBRAJAT CORBETT CLASSIFICATION INSPECTOR Ot J43.9 EMPHYSEMA, UNSPECIFIED 05/14/2016 SEBRAJAT CORBETT CLASSIFICATION INSPECTOR Ot R09.02 HYPOXEMIA 07/07/2016 SEBRAJAT CORBETT CLASSIFICATION INSPECTOR Ot I27.2 OTHER SECONDARY PULMONARY HYPERTENSION 07/07/2016 SEBRAJAT CORBETT CLASSIFICATION INSPECTOR Ot J43.9 EMPHYSEMA, UNSPECIFIED 07/07/2016 RAJAT GRIGSBY CLASSIFICATION INSPECTOR Ot R09.02 HYPOXEMIA 07/08/2016 RAJAT GRIGSBY CLASSIFICATION INSPECTOR Ot I27.2 OTHER SECONDARY PULMONARY HYPERTENSION 07/08/2016 RAJAT GRIGSBY CLASSIFICATION INSPECTOR Ot J43.9 EMPHYSEMA, UNSPECIFIED 07/08/2016 RAJAT GRIGSBY APRN Ot R09.02 HYPOXEMIA 07/16/2016 SKYE GARCIA MD Ot D68.32 HEMORRHAGIC DISORD D/T EXTRINSIC CIRCULA 07/16/2016 SKYE GARCIA MD Ot I10 ESSENTIAL (PRIMARY) HYPERTENSION 07/16/2016 SKYE GARCIA MD Ot I48.2 CHRONIC ATRIAL FIBRILLATION 07/16/2016 SKYE GARCIA MD, Ot J44.9 CHRONIC OBSTRUCTIVE PULMONARY DISEASE, U 07/16/2016 SKYE GARCIA MD Ot Z79.01 SHELTER (CURRENT) USE OF ANTICOAGULANT 07/16/2016 SKYE GARCIA MD Ot Z79.02 SHELTER (CURRENT) USE OF ANTITHROMBOTI 07/16/2016 SKYE GARCIA MD Ot Z95.5 PRESENCE OF CORONARY ANGIOPLASTY IMPLANT 08/11/2016 Ot 427.31 ATR IAL FIBRILLATION 08/11/2016 JIM MEAD MD Ot V72.84 EXAM PRE-OPERATIVE NOS 08/11/2016 LOUISE SPARROW MD Ot 272. 4 HYPERLIPIDEMIA NEC/NOS 08/11/2016 LOUISE SPARROW MD Ot 397. 0 TRICUSPID VALVE DISEASE 08/11/2016 LOUISE SPARROW MD Ot 401. 9 HYPERTENSION NOS 08/11/2016 LOUISE SPARROW MD Ot 416. 8 CHR PULMON HEART DIS NEC 08/11/2016 LOIUSE SPARROW MD Ot 424. 0 MITRAL VALVE DISORDER 08/11/2016 LOUISE SPARROW MD Ot 427. 31 ATRIAL FIBRILLATION 08/11/2016 LOUISE SPARROW MD Ot 429. 9 HEART DISEASE NOS 08/11/2016 LOUISE SPARROW MD Ot 433. 10 CAROTID ARTERY OCCLUSION W O CEREBRAL IN 08/11/2016 AMBROSIO KUMAR DO Ot 786. 09 RESPIRATORY ABNORM NEC 08/11/2016 AMBROSIO KUMAR DO Ot 496 CHR AIRWAY OBSTRUCT NEC 08/11/2016 ANJU STANFORD MD Ot 789.01 ABDOMINAL PAIN, RIGHT UPPER QUADRANT 08/11/2016 ANJU STANFORD MD Ot 789.06 ABDOMINAL PAIN, EPIGASTRIC 08/11/2016 BOSTON SZYMANSKI, JIM Ot V72.84 EXAM PRE-OPERATIVE NOS 08/11/2016 LOUISE SPARROW MD Ot E78. 2 MIXED HYPERLIPIDEMIA 08/11/2016 LOUISE SPARROW MD Ot I10 ESSENTIAL (PRIMARY) HYPERTENSION 08/11/2016 LOUISE SPARROW MD Ot I48. 0 PAROXYSMAL ATRIAL FIBRILLATION 08/11/2016 LOUISE SPARROW MD Ot R06. 02 SHORTNESS OF BREATH 08/11/2016 LOUISE SPARROW MD Ot I65. 23 OCCLUSION AND STENOSIS OF BILATERAL [place] 08/11/2016 LOUISE SPARROW MD Ot I10 ESSENTIAL (PRIMARY) HYPERTENSION 08/11/2016 LOUISE SPARROW MD Ot I27. 2 OTHER SECONDARY PULMONARY HYPERTENSION 08/11/2016 RAJAT GRIGSBY APRN Ot I27.2 OTHER SECONDARY PULMONARY HYPERTENSION 08/11/2016 RAJAT GRIGSBY APRN Ot J43.9 EMPHYSEMA, UNSPECIFIED 08/11/2016 RAJAT GRIGSBY APRN Ot R09.02 HYPOXEMIA 08/11/2016 AMBROSIO KUMAR DO Ot I27. 2 OTHER SECONDARY PULMONARY HYPERTENSION 08/11/2016 AMBROSIO KUMAR DO, Ot J43. 9 EMPHYSEMA, UNSPECIFIED 08/11/2016 AMBROSIO KUMAR DO Ot R06. 02 SHORTNESS OF BREATH 08/11/2016 AMBROSIO KUMAR DO Ot R09. 02 HYPOXEMIA 08/11/2016 KARON MORGAN Ot E78.2 MIXED HYPERLIPIDEMIA 08/11/2016 KARON MORGAN Ot I10 ESSENTIAL (PRIMARY) HYPERTENSION 08/11/2016 KARON MORGAN Ot I50.32 CHRONIC DIASTOLIC (CONGESTIVE) HEART ROB 08/11/2016 KARON MORGAN Ot I65.23 OCCLUSION AND STENOSIS OF BILATERAL [place] 08/11/2016 RAJAT GRIGSBY CLASSIFICATION INSPECTOR Ot I27.2 OTHER SECONDARY PULMONARY HYPERTENSION 08/11/2016 RAJAT GRIGSBY CLASSIFICATION INSPECTOR Ot J43.9 EMPHYSEMA, UNSPECIFIED 08/11/2016 RAJAT GRIGSBY APRN Ot R09.02 HYPOXEMIA 08/11/2016 RAJAT GRIGSBY CLASSIFICATION INSPECTOR Ot R06.02 SHORTNESS OF BREATH 08/12/2016 RAJAT GRIGSBY CLASSIFICATION INSPECTOR Ot R06.02 SHORTNESS OF BREATH 08/13/2016 RAJAT GRIGSBY CLASSIFICATION INSPECTOR Ot J43.9 EMPHYSEMA, UNSPECIFIED 08/13/2016 RAJAT GRIGSBY CLASSIFICATION INSPECTOR Ot I27.2 OTHER SECONDARY PULMONARY HYPERTENSION 08/13/2016 RAJAT GRIGSBY CLASSIFICATION INSPECTOR Ot J43.9 EMPHYSEMA, UNSPECIFIED 08/13/2016 RAJAT GRIGSBY CLASSIFICATION INSPECTOR Ot R06.02 SHORTNESS OF BREATH 08/13/2016 RAJAT GRIGSBY CLASSIFICATION INSPECTOR Ot R09.02 HYPOXEMIA 08/14/2016 RAJAT GRIGSBY CLASSIFICATION INSPECTOR Ot J43.9 EMPHYSEMA, UNSPECIFIED 08/29/2016 RAJAT GRIGSBY CLASSIFICATION INSPECTOR Ot I27.2 OTHER SECONDARY PULMONARY HYPERTENSION 08/29/2016 RAJAT GRIGSBY CLASSIFICATION INSPECTOR Ot J43.9 EMPHYSEMA, UNSPECIFIED 08/29/2016 RAJAT GRIGSBY CLASSIFICATION INSPECTOR Ot R06.02 SHORTNESS OF BREATH 08/29/2016 RAJAT GRIGSBY CLASSIFICATION INSPECTOR Ot R09.02 HYPOXEMIA 08/29/2016 RAJAT GRIGSBY CLASSIFICATION INSPECTOR Ot J43.9 EMPHYSEMA, UNSPECIFIED 09/16/2016 RAJAT GRIGSBY CLASSIFICATION INSPECTOR Ot J43.9 EMPHYSEMA, UNSPECIFIED 09/16/2016 RAJAT GRIGSBY CLASSIFICATION INSPECTOR Ot R06.02 SHORTNESS OF BREATH 10/07/2016 Ot 427.31 ATR IAL FIBRILLATION 10/07/2016 JIM MEAD MD Ot V72.84 EXAM PRE-OPERATIVE NOS 10/07/2016 LOUISE SPARROW MD Ot 272. 4 HYPERLIPIDEMIA NEC/NOS 10/07/2016 LOUISE SPARROW MD Ot 397. 0 TRICUSPID VALVE DISEASE 10/07/2016 LOUISE SPARROW MD Ot 401. 9 HYPERTENSION NOS 10/07/2016 LOUISE SPARROW MD Ot 416. 8 CHR PULMON HEART DIS NEC 10/07/2016 LOUISE SPARROW MD Ot 424. 0 MITRAL VALVE DISORDER 10/07/2016 LOUISE SPARROW MD Ot 427. 31 ATRIAL FIBRILLATION 10/07/2016 LOUISE SPARROW MD Ot 429. 9 HEART DISEASE NOS 10/07/2016 LOUISE SPARROW MD Ot 433. 10 CAROTID ARTERY OCCLUSION W O CEREBRAL IN 10/07/2016 AMBROSIO KUMAR DO Ot 786. 09 RESPIRATORY ABNORM NEC 10/07/2016 AMBROSIO KUMAR DO Ot 496 CHR AIRWAY OBSTRUCT NEC 10/07/2016 ANJU STANFORD MD Ot 789.01 ABDOMINAL PAIN, RIGHT UPPER QUADRANT 10/07/2016 ANJU STANFORD MD Ot 789.06 ABDOMINAL PAIN, EPIGASTRIC 10/07/2016 JIM MEAD MD Ot V72.84 EXAM PRE-OPERATIVE NOS 10/07/2016 LOUISE SPARROW MD Ot E78. 2 MIXED HYPERLIPIDEMIA 10/07/2016 LOUISE SPARROW MD Ot I10 ESSENTIAL (PRIMARY) HYPERTENSION 10/07/2016 LOUISE SPARROW MD Ot I48. 0 PAROXYSMAL ATRIAL FIBRILLATION 10/07/2016 LOUISE SPARROW MD Ot R06. 02 SHORTNESS OF BREATH 10/07/2016 LOUISE SPARROW MD Ot I65. 23 OCCLUSION AND STENOSIS OF BILATERAL [place] 10/07/2016 LOUISE SPARROW MD Ot I10 ESSENTIAL (PRIMARY) HYPERTENSION 10/07/2016 LOUISE SPARROW MD Ot I27. 2 OTHER SECONDARY PULMONARY HYPERTENSION 10/07/2016 RAJAT GRIGSBY APRN Ot I27.2 OTHER SECONDARY PULMONARY HYPERTENSION 10/07/2016 RAJAT GRIGSBY APRN Ot J43.9 EMPHYSEMA, UNSPECIFIED 10/07/2016 RAJAT GRIGSBY APRN Ot R09.02 HYPOXEMIA 10/07/2016 JOSÉ DO, AMBROSIO M Ot I27. 2 OTHER SECONDARY PULMONARY HYPERTENSION 10/07/2016 AMBROSIO KUMAR DO Ot J43. 9 EMPHYSEMA, UNSPECIFIED 10/07/2016 AMBROSIO KUMAR DO Ot R06. 02 SHORTNESS OF BREATH 10/07/2016 AMBROSIO KUMAR DO Ot R09. 02 HYPOXEMIA 10/07/2016 KARON MORGAN Ot E78.2 MIXED HYPERLIPIDEMIA 10/07/2016 KARON MORGAN Ot I10 ESSENTIAL (PRIMARY) HYPERTENSION 10/07/2016 KARON MORGAN Ot I50.32 CHRONIC DIASTOLIC (CONGESTIVE) HEART ROB 10/07/2016 KARON MORGAN Ot I65.23 OCCLUSION AND STENOSIS OF BILATERAL [place] 10/07/2016 RAJAT GRIGSBY APRN Ot I27.2 OTHER SECONDARY PULMONARY HYPERTENSION 10/07/2016 RAJAT GRIGSBY CLASSIFICATION INSPECTOR Ot J43.9 EMPHYSEMA, UNSPECIFIED 10/07/2016 RAJAT GRIGSBY CLASSIFICATION INSPECTOR Ot R09.02 HYPOXEMIA 10/07/2016 RAJAT GRIGSBY CLASSIFICATION INSPECTOR Ot I27.2 OTHER SECONDARY PULMONARY HYPERTENSION 10/07/2016 RAJAT GRIGSBY CLASSIFICATION INSPECTOR Ot J43.9 EMPHYSEMA, UNSPECIFIED 10/07/2016 RAJAT GRIGSBY CLASSIFICATION INSPECTOR Ot R06.02 SHORTNESS OF BREATH 10/07/2016 RAJAT GRIGSBY CLASSIFICATION INSPECTOR Ot R09.02 HYPOXEMIA 10/07/2016 RAJAT GRIGSBY CLASSIFICATION INSPECTOR Ot J43.9 EMPHYSEMA, UNSPECIFIED 10/07/2016 RAJAT GRIGSBY CLASSIFICATION INSPECTOR Ot J43.9 EMPHYSEMA, UNSPECIFIED 10/07/2016 RAJAT GRIGSBY CLASSIFICATION INSPECTOR Ot R06.02 SHORTNESS OF BREATH 10/08/2016 AMBROSIO KUMAR DO Ot J43. 9 EMPHYSEMA, UNSPECIFIED 10/08/2016 AMBROSIO KUMAR DO Ot R06. 02 SHORTNESS OF BREATH 10/17/2016 AMBROSIO KUMAR DO Ot J43. 9 EMPHYSEMA, UNSPECIFIED 10/17/2016 AMBROSIO KUMAR DO Ot R06. 02 SHORTNESS OF BREATH 10/29/2016 RAJAT GRIGSBY CLASSIFICATION INSPECTOR Ot J43.9 EMPHYSEMA, UNSPECIFIED 11/19/2016 RAJAT GRIGSBY APRN Ot J43.9 EMPHYSEMA, UNSPECIFIED 12/17/2016 KARON MORGAN Ot E78.2 MIXED HYPERLIPIDEMIA 12/17/2016 KARON MORGAN Ot I10 ESSENTIAL (PRIMARY) HYPERTENSION 12/23/2016 TUNG SAVAGE MD Ot R04 .0 EPISTAXIS 12/23/2016 TUNG SAVAGE MD Ot Z01.818 ENCOUNTER FOR OTHER PREPROCEDURAL EXAMIN 12/24/2016 TUNG SAVAGE MD Ot R04 .0 EPISTAXIS 12/24/2016 TUNG SAVAGE MD Ot Z01.818 ENCOUNTER FOR OTHER PREPROCEDURAL EXAMIN 12/26/2016 KARON MORGAN Ot E78.2 MIXED HYPERLIPIDEMIA 12/26/2016 KARON MORGAN Ot I10 ESSENTIAL (PRIMARY) HYPERTENSION 12/26/2016 TUNG SAVAGE MD Ot D64 .9 ANEMIA, UNSPECIFIED 12/26/2016 TUNG SAVAGE MD Ot I11 .0 HYPERTENSIVE HEART DISEASE WITH HEART FA 12/26/2016 TUNG SAVAGE MD Ot I27 .2 OTHER SECONDARY PULMONARY HYPERTENSION 12/26/2016 TUNG SAVAGE MD Ot I48.91 UNSPECIFIED ATRIAL FIBRILLATION 12/26/2016 TUNG SAVAGE MD Ot I50 .9 HEART FAILURE, UNSPECIFIED 12/26/2016 TUNG SAVAGE MD Ot 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 12/26/2016 TUNG SAVAGE MD Ot J44 .9 CHRONIC OBSTRUCTIVE PULMONARY DISEASE, U 12/26/2016 TUNG SAVAGE MD Ot R04 .0 EPISTAXIS 12/26/2016 TUNG SAVAGE MD Ot Z79.01 SHELTER (CURRENT) USE OF ANTICOAGULANT 12/31/2016 TUNG SAVAGE MD Ot D64 .9 ANEMIA, UNSPECIFIED 12/31/2016 TUNG SAVAGE MD Ot I11 .0 HYPERTENSIVE HEART DISEASE WITH HEART FA 12/31/2016 TUNG SAVAGE MD Ot I27 .2 OTHER SECONDARY PULMONARY HYPERTENSION 12/31/2016 TUNG SAVAGE MD Ot I48.91 UNSPECIFIED ATRIAL FIBRILLATION 12/31/2016 TUNG SAVAGE MD Ot I50 .9 HEART FAILURE, UNSPECIFIED 12/31/2016 TUNG SAVAGE MD Ot 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 12/31/2016 TUNG SAVAGE MD, Ot J44 .9 CHRONIC OBSTRUCTIVE PULMONARY DISEASE, U 12/31/2016 TUNG SAVAGE MD Ot R04 .0 EPISTAXIS 12/31/2016 TUNG SAVAGE MD, Ot 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 01/02/2017 TUNG SAVAGE MD, Ot D64 .9 ANEMIA, UNSPECIFIED 01/02/2017 TUNG SAVAGE MD Ot I11 .0 HYPERTENSIVE HEART DISEASE WITH HEART FA 01/02/2017 TUNG SAVAGE MD Ot I27 .2 OTHER SECONDARY PULMONARY HYPERTENSION 01/02/2017 TUNG SAVAGE MD Ot I48.91 UNSPECIFIED ATRIAL FIBRILLATION 01/02/2017 TUNG SAVAGE MD, Ot I50 .9 HEART FAILURE, UNSPECIFIED 01/02/2017 TUNG SAVAGE MD, Ot 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 01/02/2017 TUNG SAVAGE MD, Ot J44 .9 CHRONIC OBSTRUCTIVE PULMONARY DISEASE, U 01/02/2017 TUNG SAVAGE MD Ot R04 .0 EPISTAXIS 01/02/2017 TUNG SAVAGE MD, Ot Z79.01 SHELTER (CURRENT) USE OF ANTICOAGULANT 01/16/2017 SMOOTH NEWMAN ANAT Ot D64.9 ANEMIA, UNSPECIFIED 01/16/2017 SMOOTH NEWMAN ANAT Ot E03.9 HYPOTHYROIDISM, UNSPECIFIED 01/16/2017 SMOOTH NEWMAN ANAT Ot E78.00 PURE HYPERCHOLESTEROLEMIA, UNSPECIFIED 01/16/2017 SMOOTH NEWMAN ANAT Ot E78.5 HYPERLIPIDEMIA, UNSPECIFIED 01/16/2017 SMOOTH NEWMAN ANAT Ot I11.0 HYPERTENSIVE HEART DISEASE WITH HEART FA 01/16/2017 SMOOTH NEWMAN ANAT Ot I25.10 ATHSCL HEART DISEASE OF [place] CORONARY 01/16/2017 SMOOTH NEWMAN ANAT Ot I27.2 [...] UNSPECIFIED 01/16/2017 ANAT REBOLLAR DO Ot Z79.01 SHELTER (CURRENT) USE OF ANTICOAGULANT 01/16/2017 ANAT REBOLLAR DO Ot Z79.02 STRUCTURAL ENGINEERING PROJECT MANAGER (CURRENT) USE OF ANTITHROMBOTI 01/16/2017 ANAT REBOLLAR DO Ot Z87.89 1 PERSONAL HISTORY OF NICOTINE DEPENDENCE 01/16/2017 ANAT REBOLLAR DO Ot Z95.82 8 PRESENCE OF OTHER VASCULAR IMPLANTS AND 01/16/2017 ANAT REBOLLAR DO Ot Z99.81 DEPENDENCE ON SUPPLEMENTAL OXYGEN 01/16/2017 ANAT REBOLLAR DO Ot I48.91 UNSPECIFIED ATRIAL FIBRILLATION 03/17/2017 Ot 427.31 ATR IAL FIBRILLATION 03/17/2017 JIM MEAD MD Ot V72.84 EXAM PRE-OPERATIVE NOS 03/17/2017 LOUISE SPARROW MD Ot 272. 4 HYPERLIPIDEMIA NEC/NOS 03/17/2017 LOUISE SPARROW MD Ot 397. 0 TRICUSPID VALVE DISEASE 03/17/2017 LOUISE SPARROW MD Ot 401. 9 HYPERTENSION NOS 03/17/2017 LOUISE SPARROW MD Ot 416. 8 CHR PULMON HEART DIS NEC 03/17/2017 LOUISE SPARROW MD Ot 424. 0 MITRAL VALVE DISORDER 03/17/2017 LOUISE SPARROW MD Ot 427. 31 ATRIAL FIBRILLATION 03/17/2017 LOUISE SPARROW MD Ot 429. 9 HEART DISEASE NOS 03/17/2017 LOUISE SPARROW MD Ot 433. 10 CAROTID ARTERY OCCLUSION W O CEREBRAL IN 03/17/2017 AMBROSIO KUMAR DO Ot 786. 09 RESPIRATORY ABNORM NEC 03/17/2017 AMBROSIO KUMAR DO Ot 496 CHR AIRWAY OBSTRUCT NEC 03/17/2017 ANJU STANFORD MD Ot 789.01 ABDOMINAL PAIN, RIGHT UPPER QUADRANT 03/17/2017 ANJU STANFORD MD Ot 789.06 ABDOMINAL PAIN, EPIGASTRIC 03/17/2017 JIM MEAD MD Ot V72.84 EXAM PRE-OPERATIVE NOS 03/17/2017 LOUISE SPARROW MD Ot E78. 2 MIXED HYPERLIPIDEMIA 03/17/2017 LOUISE SPARROW MD Ot I10 ESSENTIAL (PRIMARY) HYPERTENSION 03/17/2017 LOUISE SPARROW MD Ot I48. 0 PAROXYSMAL ATRIAL FIBRILLATION 03/17/2017 LOUISE SPARROW MD Ot R06. 02 SHORTNESS OF BREATH 03/17/2017 LOUISE SPARROW MD Ot I65. 23 OCCLUSION AND STENOSIS OF BILATERAL [place] 03/17/2017 LOUISE SPARROW MD Ot I10 ESSENTIAL (PRIMARY) HYPERTENSION 03/17/2017 LOUISE SPARROW MD Ot I27. 2 OTHER SECONDARY PULMONARY HYPERTENSION 03/17/2017 RAJAT GRIGSBY CLASSIFICATION INSPECTOR Ot I27.2 OTHER SECONDARY PULMONARY HYPERTENSION 03/17/2017 RAJAT GRIGSBY APRN Ot J43.9 EMPHYSEMA, UNSPECIFIED 03/17/2017 RAJAT GRIGSBY APRN Ot R09.02 HYPOXEMIA 03/17/2017 AMBROSIO KUMAR DO Ot I27. 2 OTHER SECONDARY PULMONARY HYPERTENSION 03/17/2017 AMBROSIO KUMAR DO Ot J43. 9 EMPHYSEMA, UNSPECIFIED 03/17/2017 AMBROSIO KUMAR DO Ot R06. 02 SHORTNESS OF BREATH 03/17/2017 AMBROSIO KUMAR DO Ot R09. 02 HYPOXEMIA 03/17/2017 KARON MORGAN Ot E78.2 MIXED HYPERLIPIDEMIA 03/17/2017 KARON MORGAN Ot I10 ESSENTIAL (PRIMARY) HYPERTENSION 03/17/2017 KARON MORGAN Ot I50.32 CHRONIC DIASTOLIC (CONGESTIVE) HEART ROB 03/17/2017 KARON MORGAN Ot I65.23 OCCLUSION AND STENOSIS OF BILATERAL [place] 03/17/2017 RAJAT GRIGSBY CLASSIFICATION INSPECTOR Ot I27.2 OTHER SECONDARY PULMONARY HYPERTENSION 03/17/2017 RAJAT GRIGSBY CLASSIFICATION INSPECTOR Ot J43.9 EMPHYSEMA, UNSPECIFIED 03/17/2017 RAJAT GRIGSBY CLASSIFICATION INSPECTOR Ot R09.02 HYPOXEMIA 03/17/2017 RAJAT GRIGSBY CLASSIFICATION INSPECTOR Ot I27.2 OTHER SECONDARY PULMONARY HYPERTENSION 03/17/2017 RAJAT GRIGSBY CLASSIFICATION INSPECTOR Ot J43.9 EMPHYSEMA, UNSPECIFIED 03/17/2017 RAJAT GRIGSBY CLASSIFICATION INSPECTOR Ot R06.02 SHORTNESS OF BREATH 03/17/2017 RAJAT GRIGSBY APRN Ot R09.02 HYPOXEMIA 03/17/2017 RAJAT GRIGSBY CLASSIFICATION INSPECTOR Ot J43.9 EMPHYSEMA, UNSPECIFIED 03/17/2017 RAJAT GRIGSBY APRN Ot J43.9 EMPHYSEMA, UNSPECIFIED 03/17/2017 RAJAT GRIGSBY APRN Ot R06.02 SHORTNESS OF BREATH 03/17/2017 AMBROSIO KUMAR DO M Ot J43. 9 EMPHYSEMA, UNSPECIFIED 03/17/2017 JOSÉ DOAMBROSIO M Ot R06. 02 SHORTNESS OF BREATH 03/17/2017 RAJAT GRIGSBY APRN [...] SCHAFFER Ot I25.10 ATHSCL HEART DISEASE OF [place] CORONARY 03/18/2017 KADEN SCHAFFER Ot I48.2 CHRONIC ATRIAL FIBRILLATION 03/18/2017 KADEN SCHAFFER Ot I50.30 UNSPECIFIED DIASTOLIC (CONGESTIVE) HEART 03/18/2017 KADEN SCHAFFER Ot 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 03/18/2017 KADEN SCHAFFER Ot I73.9 PERIPHERAL VASCULAR DISEASE, UNSPECIFIED 03/18/2017 KADEN SCHAFFER Ot J44.9 CHRONIC OBSTRUCTIVE PULMONARY DISEASE, U 03/18/2017 KADEN SCHAFFER Ot K21.9 GASTRO-ESOPHAGEAL REFLUX DISEASE WITHOUT 03/18/2017 KADEN SCHAFFER Ot Z79.01 SHELTER (CURRENT) USE OF ANTICOAGULANT 03/18/2017 KADEN SCHAFFER Ot Z79.02 SHELTER (CURRENT) USE OF ANTITHROMBOTI 03/18/2017 KADEN SCHAFFER [...] SCHAFFER Ot I25.10 ATHSCL HEART DISEASE OF [place] CORONARY 04/13/2017 KADEN SCHAFFER Ot I48.2 CHRONIC ATRIAL FIBRILLATION 04/13/2017 KADEN SCHAFFER Ot I50.30 UNSPECIFIED DIASTOLIC (CONGESTIVE) HEART 04/13/2017 KADEN SCHAFFER Ot 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 04/13/2017 KADEN SCHAFFER Ot I73.9 PERIPHERAL VASCULAR DISEASE, UNSPECIFIED 04/13/2017 KADEN SCHAFFER Ot J44.9 CHRONIC OBSTRUCTIVE PULMONARY DISEASE, U 04/13/2017 KADEN SCHAFFER Ot K21.9 GASTRO-ESOPHAGEAL REFLUX DISEASE WITHOUT 04/13/2017 KADEN SCHAFFER Ot 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 04/13/2017 KADEN SCHAFFER Ot Z79.02 STRUCTURAL ENGINEERING PROJECT MANAGER (CURRENT) USE OF ANTITHROMBOTI 04/13/2017 KADEN SCHAFFER [...] SCHAFFER Ot I25.10 ATHSCL HEART DISEASE OF [place] CORONARY 05/02/2017 KADEN SCHAFFER Ot I48.2 CHRONIC ATRIAL FIBRILLATION 05/02/2017 KADEN SCHAFFER Ot I50.30 UNSPECIFIED DIASTOLIC (CONGESTIVE) HEART 05/02/2017 KADEN SCHAFFER Ot 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 05/02/2017 KADEN SCHAFFER Ot I73.9 PERIPHERAL VASCULAR DISEASE, UNSPECIFIED 05/02/2017 KADEN SCHAFFER Ot J44.9 CHRONIC OBSTRUCTIVE PULMONARY DISEASE, U 05/02/2017 KADEN SCHAFFER Ot K21.9 GASTRO-ESOPHAGEAL REFLUX DISEASE WITHOUT 05/02/2017 KADEN SCHAFFER Ot Z79.01 SHELTER (CURRENT) USE OF ANTICOAGULANT 05/02/2017 KADEN SCHAFFER Ot Z79.02 STRUCTURAL ENGINEERING PROJECT MANAGER (CURRENT) USE OF ANTITHROMBOTI 05/02/2017 KADEN SCHAFFER Ot Z87.891 PERSONAL HISTORY OF NICOTINE DEPENDENCE 05/02/2017 KADEN SCHAFFER Ot Z95.828 PRESENCE OF OTHER VASCULAR IMPLANTS AND 05/02/2017 KADEN SCHAFFER N Ot Z99.81 DEPENDENCE ON SUPPLEMENTAL OXYGEN 05/08/2017 KADEN SCHAFFER Ot D64.9 ANEMIA, UNSPECIFIED 05/08/2017 KADEN SCHAFFER Ot E03.9 HYPOTHYROIDISM, UNSPECIFIED 05/08/2017 KADEN SCHAFFER Ot E78.00 PURE HYPERCHOLESTEROLEMIA, UNSPECIFIED 05/08/2017 KADEN SCHAFFER Ot E78.5 HYPERLIPIDEMIA, UNSPECIFIED 05/08/2017 KADEN SCHAFFER Ot I11.0 HYPERTENSIVE HEART DISEASE WITH HEART FA 05/08/2017 KADEN SCHAFFER Ot I25.10 ATHSCL HEART DISEASE OF [place] CORONARY 05/08/2017 KADEN SCHAFFER Ot I48.2 CHRONIC ATRIAL FIBRILLATION 05/08/2017 KADEN SCHAFFER Ot I50.30 UNSPECIFIED DIASTOLIC (CONGESTIVE) HEART 05/08/2017 KADEN SCHAFFER Ot 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 05/08/2017 KADEN SCHAFFER Ot I73.9 PERIPHERAL VASCULAR DISEASE, UNSPECIFIED 05/08/2017 KADEN SCHAFFER Ot J44.9 CHRONIC OBSTRUCTIVE PULMONARY DISEASE, U 05/08/2017 KADEN SCHAFFER Ot K21.9 GASTRO-ESOPHAGEAL REFLUX DISEASE WITHOUT 05/08/2017 KADEN SCHAFFER Ot 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 05/08/2017 KADEN SCHAFFER Ot Z79.02 SHELTER (CURRENT) USE OF ANTITHROMBOTI 05/08/2017 KADEN SCHAFFER Ot Z87.891 PERSONAL HISTORY OF NICOTINE DEPENDENCE 05/08/2017 KADEN SCHAFFER Ot Z95.828 PRESENCE OF OTHER VASCULAR IMPLANTS AND 05/08/2017 KADEN SCHAFFER Ot Z99.81 DEPENDENCE ON SUPPLEMENTAL OXYGEN 05/25/2017 ANJU STANFORD MD Ot E78 .2 MIXED HYPERLIPIDEMIA 05/25/2017 ANJU STANFORD MD Ot I10 ESSENTIAL (PRIMARY) HYPERTENSION 05/25/2017 ANJU STANFORD MD Ot I48 .0 PAROXYSMAL ATRIAL FIBRILLATION 05/25/2017 ANJU STANFORD MD [...] APRN Ot R09.02 HYPOXEMIA 06/03/2017 Anju Stanford W 250.00 DIABETES MELLITUS WITHOUT MENTION OF COMPLICATION, TYPE II OR UNSPECIFIED TYPE, NOT STATED UNCONTROLLED 06/03/2017 Anju Stanford W E11.9 TYPE 2 DIABETES MELLITUS WITHOUT COMPLICATIONS 06/03/2017 W 250.00 ARNULFO BETES MELLITUS WITHOUT MENTION OF COMPLICATION, TYPE II OR UNSPECIFIED TYPE, NOT STATED UNCONTROLLED 06/03/2017 W E11.9 TYPE 2 DIABETES MELLITUS WITHOUT COMPLICATIONS 06/03/2017 Anju Stanford W 250.00 DIABETES MELLITUS WITHOUT MENTION OF COMPLICATION, TYPE II OR UNSPECIFIED TYPE, NOT STATED UNCONTROLLED 06/03/2017 Anju Stanford W E11.9 TYPE 2 DIABETES MELLITUS WITHOUT COMPLICATIONS 06/05/2017 LOUISE SPARROW MD Ot E78. 2 MIXED HYPERLIPIDEMIA 06/05/2017 LOUISE SPARROW MD Ot I11. 0 HYPERTENSIVE HEART DISEASE WITH HEART FA 06/05/2017 LOUISE SPARROW MD Ot I48. 0 PAROXYSMAL ATRIAL FIBRILLATION 06/05/2017 LOUISE SPARROW MD Ot I50. 32 CHRONIC DIASTOLIC (CONGESTIVE) HEART ROB 06/05/2017 LOUISE SPARROW MD Ot I65. 23 OCCLUSION AND STENOSIS OF BILATERAL [place] 06/24/2017 KADEN SCHAFFER Ot D64.9 ANEMIA, UNSPECIFIED 06/24/2017 KADEN SCHAFFER Ot E03.9 HYPOTHYROIDISM, UNSPECIFIED 06/24/2017 KADEN SCHAFFER Ot E78.00 PURE HYPERCHOLESTEROLEMIA, UNSPECIFIED 06/24/2017 KADEN SCHAFFER Ot E78.5 HYPERLIPIDEMIA, UNSPECIFIED 06/24/2017 KADEN SCHAFFER Ot I11.0 HYPERTENSIVE HEART DISEASE WITH HEART FA 06/24/2017 KADEN SCHAFFER Ot I25.10 ATHSCL HEART DISEASE OF [place] CORONARY 06/24/2017 KADEN SCHAFFER Ot I48.2 CHRONIC ATRIAL FIBRILLATION 06/24/2017 KADEN SCHAFFER Ot I50.30 UNSPECIFIED DIASTOLIC (CONGESTIVE) HEART 06/24/2017 KADEN SCHAFFER Ot 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 06/24/2017 KADEN SCHAFFER Ot I73.9 PERIPHERAL VASCULAR DISEASE, UNSPECIFIED 06/24/2017 KADEN SCHAFFER Ot J44.9 CHRONIC OBSTRUCTIVE PULMONARY DISEASE, U 06/24/2017 KADEN SCHAFFER Ot K21.9 GASTRO-ESOPHAGEAL REFLUX DISEASE WITHOUT 06/24/2017 KADEN SCHAFFER Ot Z79.01 SHELTER (CURRENT) USE OF ANTICOAGULANT 06/24/2017 KADEN SCHAFFER Ot Z79.02 STRUCTURAL ENGINEERING PROJECT MANAGER (CURRENT) USE OF ANTITHROMBOTI 06/24/2017 KADEN SCHAFFER Ot Z87.891 PERSONAL HISTORY OF NICOTINE DEPENDENCE 06/24/2017 KADEN SCHAFFER Marlena Ot Z95.828 PRESENCE OF OTHER VASCULAR IMPLANTS AND 06/24/2017 SARBJIT, KADEN Marlena Ot Z99.81 DEPENDENCE ON SUPPLEMENTAL OXYGEN 07/14/2017 SARBJITKIMCHAD Marlena Ot D64.9 ANEMIA, UNSPECIFIED 07/14/2017 KADEN SCHAFFER Marlena Ot E03.9 HYPOTHYROIDISM, UNSPECIFIED 07/14/2017 SARBJITKADEN Ot E78.00 PURE HYPERCHOLESTEROLEMIA, UNSPECIFIED 07/14/2017 SARBJITKADEN Ot E78.5 HYPERLIPIDEMIA, UNSPECIFIED 07/14/2017 SARBJITKADEN Ot I11.0 HYPERTENSIVE HEART DISEASE WITH HEART FA 07/14/2017 KADEN SCHAFFER Ot I25.10 ATHSCL HEART DISEASE OF [place] CORONARY 07/14/2017 SARBJITKADEN Ot I48.2 CHRONIC ATRIAL FIBRILLATION 07/14/2017 KADEN SCHAFFER Ot I50.30 UNSPECIFIED DIASTOLIC (CONGESTIVE) HEART 07/14/2017 KADEN SCHAFFER Ot 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 07/14/2017 KIM SCHAFFERCHAD Marlena Ot I73.9 PERIPHERAL VASCULAR DISEASE, UNSPECIFIED 07/14/2017 KADEN SCHAFFER Ot J44.9 CHRONIC OBSTRUCTIVE PULMONARY DISEASE, U 07/14/2017 KIM SCHAFFERCHAD Marlena Ot K21.9 GASTRO-ESOPHAGEAL REFLUX DISEASE WITHOUT 07/14/2017 KIM SCHAFFERCHAD Marlena Ot 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 07/14/2017 KADEN SCHAFFER Ot Z79.02 SHELTER (CURRENT) USE OF ANTITHROMBOTI 07/14/2017 KADEN SCHAFFER Ot Z87.891 PERSONAL HISTORY OF NICOTINE DEPENDENCE 07/14/2017 SARBJIT KADEN Marlena Ot Z95.828 PRESENCE OF OTHER VASCULAR IMPLANTS AND 07/14/2017 KADEN SCHAFFER Ot Z99.81 DEPENDENCE ON SUPPLEMENTAL OXYGEN 08/31/2017 RAJAT GRIGSBY APRN Ot J43.9 EMPHYSEMA, UNSPECIFIED 09/21/2017 SARBJITKADEN Ot D64.9 ANEMIA, UNSPECIFIED 09/21/2017 KADEN SCHAFFER Ot E03.9 HYPOTHYROIDISM, UNSPECIFIED 09/21/2017 SARBJIT, BOBAN N Ot E78.00 PURE HYPERCHOLESTEROLEMIA, UNSPECIFIED 09/21/2017 SARBJITKADEN Ot E78.5 HYPERLIPIDEMIA, UNSPECIFIED 09/21/2017 SARBJITKADEN Ot I11.0 HYPERTENSIVE HEART DISEASE WITH HEART FA 09/21/2017 SARBJITKADEN Ot I25.10 ATHSCL HEART DISEASE OF [place] CORONARY 09/21/2017 SARBJITKADEN Ot I48.2 CHRONIC ATRIAL FIBRILLATION 09/21/2017 KADEN SCHAFFER Ot I50.30 UNSPECIFIED DIASTOLIC (CONGESTIVE) HEART 09/21/2017 KADEN SCHAFFER Ot 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 09/21/2017 KADEN SCHAFFER N Ot I73.9 PERIPHERAL VASCULAR DISEASE, UNSPECIFIED 09/21/2017 KADEN SCHAFFER Ot J44.9 CHRONIC OBSTRUCTIVE PULMONARY DISEASE, U 09/21/2017 KADEN SCHAFFER Ot K21.9 GASTRO-ESOPHAGEAL REFLUX DISEASE WITHOUT 09/21/2017 KADEN SCHAFFER Ot 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 09/21/2017 KADEN SCHAFFER N Ot Z79.02 STRUCTURAL ENGINEERING PROJECT MANAGER (CURRENT) USE OF ANTITHROMBOTI 09/21/2017 KADEN SCHAFFER Ot Z87.891 PERSONAL HISTORY OF NICOTINE DEPENDENCE 09/21/2017 KADEN SCHAFFER Ot Z95.828 PRESENCE OF OTHER VASCULAR IMPLANTS AND 09/21/2017 KADEN SCHAFFER N Ot Z99.81 DEPENDENCE ON SUPPLEMENTAL OXYGEN 10/06/2017 KADEN SCHAFFER Ot D64.9 ANEMIA, UNSPECIFIED 10/06/2017 KADEN SCHAFFER Ot E03.9 HYPOTHYROIDISM, UNSPECIFIED 10/06/2017 KADEN SCHAFFER Ot E78.00 PURE HYPERCHOLESTEROLEMIA, UNSPECIFIED 10/06/2017 KADEN SCHAFFER Ot E78.5 HYPERLIPIDEMIA, UNSPECIFIED 10/06/2017 KADEN SCHAFFER Ot I11.0 HYPERTENSIVE HEART DISEASE WITH HEART FA 10/06/2017 KADEN SCHAFFER Ot I25.10 ATHSCL HEART DISEASE OF [place] CORONARY 10/06/2017 KADEN SCHAFFER Ot I48.2 CHRONIC ATRIAL FIBRILLATION 10/06/2017 KADEN SCHAFFER Ot I50.30 UNSPECIFIED DIASTOLIC (CONGESTIVE) HEART 10/06/2017 KADEN SCHAFFER Ot 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 10/06/2017 KADEN SCHAFFER Ot I73.9 PERIPHERAL VASCULAR DISEASE, UNSPECIFIED 10/06/2017 KADEN SCHAFFER Ot J44.9 CHRONIC OBSTRUCTIVE PULMONARY DISEASE, U 10/06/2017 KADEN SCHAFFER Ot K21.9 GASTRO-ESOPHAGEAL REFLUX DISEASE WITHOUT 10/06/2017 KADEN SCHAFFER Ot Z79.01 SHELTER (CURRENT) USE OF ANTICOAGULANT 10/06/2017 KADEN SCHAFFER Ot Z79.02 SHELTER (CURRENT) USE OF ANTITHROMBOTI 10/06/2017 KADEN SCHAFFER [...] SCHAFFER Ot I25.10 ATHSCL HEART DISEASE OF [place] CORONARY 10/13/2017 KADEN SCHAFFER Ot I48.2 CHRONIC ATRIAL FIBRILLATION 10/13/2017 KADEN SCHAFFER Ot I50.30 UNSPECIFIED DIASTOLIC (CONGESTIVE) HEART 10/13/2017 KADEN SCHAFFER Ot 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 10/13/2017 KADEN SCHAFFER Ot I73.9 PERIPHERAL VASCULAR DISEASE, UNSPECIFIED 10/13/2017 KADEN SCHAFFER Ot J44.9 CHRONIC OBSTRUCTIVE PULMONARY DISEASE, U 10/13/2017 KADEN SCHAFFER Ot K21.9 GASTRO-ESOPHAGEAL REFLUX DISEASE WITHOUT 10/13/2017 KADEN SCHAFFER Ot Z79.01 SHELTER (CURRENT) USE OF ANTICOAGULANT 10/13/2017 KADEN SCHAFFER Ot Z79.02 SHELTER (CURRENT) USE OF ANTITHROMBOTI 10/13/2017 SARBJITKADEN Ot Z87.891 PERSONAL HISTORY OF NICOTINE DEPENDENCE 10/13/2017 KADEN SCHAFFER Ot Z95.828 PRESENCE OF OTHER VASCULAR IMPLANTS AND 10/13/2017 KADEN SCHAFFER Ot Z99.81 DEPENDENCE ON SUPPLEMENTAL OXYGEN 11/27/2017 RAJAT GRIGSBY APRN Ot J43.9 EMPHYSEMA, UNSPECIFIED 12/07/2017 RAJAT GRIGSBY APRN Ot J43.9 EMPHYSEMA, UNSPECIFIED 12/21/2017 KADEN SCHAFFER Ot D64.9 ANEMIA, UNSPECIFIED 12/21/2017 KADEN SCHAFFER Ot E03.9 HYPOTHYROIDISM, UNSPECIFIED 12/21/2017 KADEN SCHAFFER Ot E78.00 PURE HYPERCHOLESTEROLEMIA, UNSPECIFIED 12/21/2017 KADEN SCHAFFER Ot E78.5 HYPERLIPIDEMIA, UNSPECIFIED 12/21/2017 KADEN SCHAFFER Ot I11.0 HYPERTENSIVE HEART DISEASE WITH HEART FA 12/21/2017 KADEN SCHAFFER Ot I25.10 ATHSCL HEART DISEASE OF [place] CORONARY 12/21/2017 KADEN SCHAFFER Ot I48.2 CHRONIC ATRIAL FIBRILLATION 12/21/2017 KADEN SCHAFFER Ot I50.30 UNSPECIFIED DIASTOLIC (CONGESTIVE) HEART 12/21/2017 KADEN SCHAFFER Ot 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 12/21/2017 KADEN SCHAFFER Ot I73.9 PERIPHERAL VASCULAR DISEASE, UNSPECIFIED 12/21/2017 KADEN SCHAFFER Ot J44.9 CHRONIC OBSTRUCTIVE PULMONARY DISEASE, U 12/21/2017 KADEN SCHAFFER Ot K21.9 GASTRO-ESOPHAGEAL REFLUX DISEASE WITHOUT 12/21/2017 KADEN SCHAFFER Ot Z79.01 SHELTER (CURRENT) USE OF ANTICOAGULANT 12/21/2017 KADEN SCHAFFER Ot Z79.02 SHELTER (CURRENT) USE OF ANTITHROMBOTI 12/21/2017 KADEN SCHAFFER Ot Z87.891 PERSONAL HISTORY OF NICOTINE DEPENDENCE 12/21/2017 KADEN SCHAFFER Ot Z95.828 PRESENCE OF OTHER VASCULAR IMPLANTS AND 12/21/2017 KADEN SCHAFFER Ot Z99.81 DEPENDENCE ON SUPPLEMENTAL OXYGEN 12/22/2017 SARBJITKADEN Ot D64.9 ANEMIA, UNSPECIFIED 12/22/2017 KADEN SCHAFFER Ot E03.9 HYPOTHYROIDISM, UNSPECIFIED 12/22/2017 KADEN SCHAFFER Ot E78.00 PURE HYPERCHOLESTEROLEMIA, UNSPECIFIED 12/22/2017 KADEN SCHAFFER Ot E78.5 HYPERLIPIDEMIA, UNSPECIFIED 12/22/2017 KADEN SCHAFFER Ot I11.0 HYPERTENSIVE HEART DISEASE WITH HEART FA 12/22/2017 KADEN SCHAFFER Ot I25.10 ATHSCL HEART DISEASE OF [place] CORONARY 12/22/2017 KADEN SCHAFFER Ot I48.2 CHRONIC ATRIAL FIBRILLATION 12/22/2017 KADEN SCHAFFER Ot I50.30 UNSPECIFIED DIASTOLIC (CONGESTIVE) HEART 12/22/2017 KADEN SCHAFFER Ot 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 12/22/2017 KADEN SCHAFFER Ot I73.9 PERIPHERAL VASCULAR DISEASE, UNSPECIFIED 12/22/2017 KADEN SCHAFFER Ot J44.9 CHRONIC OBSTRUCTIVE PULMONARY DISEASE, U 12/22/2017 KADEN SCHAFFER Ot K21.9 GASTRO-ESOPHAGEAL REFLUX DISEASE WITHOUT 12/22/2017 KADEN SCHAFFER Ot Z79.01 SHELTER (CURRENT) USE OF ANTICOAGULANT 12/22/2017 KADEN SCHAFFER Ot Z79.02 SHELTER (CURRENT) USE OF ANTITHROMBOTI 12/22/2017 KADEN SCHAFFER [...] SCHAFFER Ot I25.10 ATHSCL HEART DISEASE OF [place] CORONARY 12/22/2017 KADEN SCHAFFER Ot I48.2 CHRONIC ATRIAL FIBRILLATION 12/22/2017 KADEN SCHAFFER Ot I50.30 UNSPECIFIED DIASTOLIC (CONGESTIVE) HEART 12/22/2017 KADEN SCHAFFER Ot 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 12/22/2017 KADEN SCHAFFER Ot I73.9 PERIPHERAL VASCULAR DISEASE, UNSPECIFIED 12/22/2017 KADEN SCHAFFER Ot J44.9 CHRONIC OBSTRUCTIVE PULMONARY DISEASE, U 12/22/2017 KADEN SCHAFFER Ot K21.9 GASTRO-ESOPHAGEAL REFLUX DISEASE WITHOUT 12/22/2017 KADEN SCHAFFER Ot 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 12/22/2017 KADEN SCHAFFER Ot Z79.02 STRUCTURAL ENGINEERING PROJECT MANAGER (CURRENT) USE OF ANTITHROMBOTI 12/22/2017 KADEN SCHAFFER Ot Z87.891 PERSONAL HISTORY OF NICOTINE DEPENDENCE 12/22/2017 KADEN SCHAFFER Ot Z95.828 PRESENCE OF OTHER VASCULAR IMPLANTS AND 12/22/2017 KADEN SCHAFFER Ot Z99.81 DEPENDENCE ON SUPPLEMENTAL OXYGEN 01/06/2018 ANDREWS SZYMANSKI, LOUISE Snyder Ot E78. 5 HYPERLIPIDEMIA, UNSPECIFIED 01/06/2018 ANDREWS SZYMANSKI, LOUISE Snyder Ot I10 ESSENTIAL (PRIMARY) HYPERTENSION 01/06/2018 ANDREWS SZYMANSKI, LOUISE Snyder Ot I48. 0 PAROXYSMAL ATRIAL FIBRILLATION 01/13/2018 KADEN SCHAFFER Ot D64.9 ANEMIA, UNSPECIFIED 01/13/2018 KADEN SCHAFFER Ot E03.9 HYPOTHYROIDISM, UNSPECIFIED 01/13/2018 KADEN SCHAFFER Ot E78.00 PURE HYPERCHOLESTEROLEMIA, UNSPECIFIED 01/13/2018 KADEN SCHAFFER Ot E78.5 HYPERLIPIDEMIA, UNSPECIFIED 01/13/2018 KADEN SCHAFFER Ot I11.0 HYPERTENSIVE HEART DISEASE WITH HEART FA 01/13/2018 KADEN SCHAFFER Ot I25.10 ATHSCL HEART DISEASE OF [place] CORONARY 01/13/2018 KADEN SCHAFFER Ot I48.2 CHRONIC ATRIAL FIBRILLATION 01/13/2018 KADEN SCHAFFER Ot I50.30 UNSPECIFIED DIASTOLIC (CONGESTIVE) HEART 01/13/2018 KADEN SCHAFFER Ot 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 01/13/2018 KADEN SCHAFFER N Ot I73.9 PERIPHERAL VASCULAR DISEASE, UNSPECIFIED 01/13/2018 KADEN SCHAFFER N Ot J44.9 CHRONIC OBSTRUCTIVE PULMONARY DISEASE, U 01/13/2018 KADEN SCHAFFER N Ot K21.9 GASTRO-ESOPHAGEAL REFLUX DISEASE WITHOUT 01/13/2018 KADEN SCHAFFER Ot 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 01/13/2018 KADEN SCHAFFER N Ot Z79.02 STRUCTURAL ENGINEERING PROJECT MANAGER (CURRENT) USE OF ANTITHROMBOTI 01/13/2018 KADEN SCHAFFER Ot Z87.891 PERSONAL HISTORY OF NICOTINE DEPENDENCE 01/13/2018 KADEN SCHAFFER Ot Z95.828 PRESENCE OF OTHER VASCULAR IMPLANTS AND 01/13/2018 KADEN SCHAFFER Ot Z99.81 DEPENDENCE ON SUPPLEMENTAL OXYGEN 01/15/2018 ANDREWS SZYMANSKI, LOUISE Snyder Ot E78. 5 HYPERLIPIDEMIA, UNSPECIFIED 01/15/2018 ANDRESW SZYMANSKI, LOUISE Snyder Ot I10 ESSENTIAL (PRIMARY) HYPERTENSION 01/15/2018 ANDREWS SZYMANSKI, LOUISE Snyder Ot I48. 0 PAROXYSMAL ATRIAL FIBRILLATION 01/19/2018 KADEN SCHAFFER N Ot D64.9 ANEMIA, UNSPECIFIED 01/19/2018 KADEN SCHAFFER Ot E03.9 HYPOTHYROIDISM, UNSPECIFIED 01/19/2018 KADEN SCHAFFER Ot E78.00 PURE HYPERCHOLESTEROLEMIA, UNSPECIFIED 01/19/2018 KADEN SCHAFFER N Ot E78.5 HYPERLIPIDEMIA, UNSPECIFIED 01/19/2018 KADEN SCHAFFER N Ot I11.0 HYPERTENSIVE HEART DISEASE WITH HEART FA 01/19/2018 KADEN SCHAFFER Ot I25.10 ATHSCL HEART DISEASE OF [place] CORONARY 01/19/2018 KADEN SCHAFFER N Ot I48.2 CHRONIC ATRIAL FIBRILLATION 01/19/2018 KADEN SCHAFFER N Ot I50.30 UNSPECIFIED DIASTOLIC (CONGESTIVE) HEART 01/19/2018 KADEN SCHAFFER N Ot 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 01/19/2018 KADEN SCHAFFER N Ot I73.9 PERIPHERAL VASCULAR DISEASE, UNSPECIFIED 01/19/2018 KADEN SCHAFFER Ot J44.9 CHRONIC OBSTRUCTIVE PULMONARY DISEASE, U 01/19/2018 KADEN SCHAFFER Ot K21.9 GASTRO-ESOPHAGEAL REFLUX DISEASE WITHOUT 01/19/2018 KADEN SCHAFFER Ot 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 01/19/2018 KADEN SCHAFFER Ot Z79.02 SHELTER (CURRENT) USE OF ANTITHROMBOTI 01/19/2018 KADEN SCHAFFER Ot Z87.891 PERSONAL HISTORY OF NICOTINE DEPENDENCE 01/19/2018 KADEN SCHAFFER Ot Z95.828 PRESENCE OF OTHER VASCULAR IMPLANTS AND 01/19/2018 KADEN SCHAFFER N Ot Z99.81 DEPENDENCE ON SUPPLEMENTAL OXYGEN 03/22/2018 KADEN SCHAFFER Ot D64.9 ANEMIA, UNSPECIFIED 03/22/2018 KADEN SCHAFFER Ot E03.9 HYPOTHYROIDISM, UNSPECIFIED 03/22/2018 KADEN SCHAFFER Ot E78.00 PURE HYPERCHOLESTEROLEMIA, UNSPECIFIED 03/22/2018 KADEN SCHAFFER Ot E78.5 HYPERLIPIDEMIA, UNSPECIFIED 03/22/2018 KADEN SCHAFFER Ot I11.0 HYPERTENSIVE HEART DISEASE WITH HEART FA 03/22/2018 KADEN SCHAFFER Ot I25.10 ATHSCL HEART DISEASE OF [place] CORONARY 03/22/2018 KADEN SCHAFFER Ot I48.2 CHRONIC ATRIAL FIBRILLATION 03/22/2018 KADEN SCHAFFER Ot I50.30 UNSPECIFIED DIASTOLIC (CONGESTIVE) HEART 03/22/2018 KADEN SCHAFFER Ot 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 03/22/2018 KADEN SCHAFFER Ot I73.9 PERIPHERAL VASCULAR DISEASE, UNSPECIFIED 03/22/2018 KADEN SCHAFFER Ot J44.9 CHRONIC OBSTRUCTIVE PULMONARY DISEASE, U 03/22/2018 KADEN SCHAFFER Ot K21.9 GASTRO-ESOPHAGEAL REFLUX DISEASE WITHOUT 03/22/2018 KADEN SCHAFFER Ot 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 03/22/2018 KADEN SCHAFFER Ot Z79.02 SHELTER (CURRENT) USE OF ANTITHROMBOTI 03/22/2018 KADEN SCHAFFER Ot Z87.891 PERSONAL HISTORY OF NICOTINE DEPENDENCE 03/22/2018 KADEN SCHAFFER Ot Z95.828 PRESENCE OF OTHER VASCULAR IMPLANTS AND 03/22/2018 KADEN SCHAFFER Ot Z99.81 DEPENDENCE ON SUPPLEMENTAL OXYGEN 06/02/2018 ANDREWS SZYMANSKI, LOUISE Snyder Ot E78. 5 HYPERLIPIDEMIA, UNSPECIFIED 06/02/2018 ANDREWS SZYMANSKI, LOUISE Snyder Ot I10 ESSENTIAL (PRIMARY) HYPERTENSION 06/15/2018 ANDREWS SZYMANSKI, LOUISE Snyder Ot E78. 5 HYPERLIPIDEMIA, UNSPECIFIED 06/15/2018 LOUISE SPARROW MD Ot [...] SCHAFFER Ot I25.10 ATHSCL HEART DISEASE OF [place] CORONARY 07/14/2018 KADEN SCHAFFER Ot I48.2 CHRONIC ATRIAL FIBRILLATION 07/14/2018 KADEN SCHAFFER Ot I50.30 UNSPECIFIED DIASTOLIC (CONGESTIVE) HEART 07/14/2018 KADEN SCHAFFER Ot 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 07/14/2018 KADEN SCHAFFER Ot I73.9 PERIPHERAL VASCULAR DISEASE, UNSPECIFIED 07/14/2018 KADEN SCHAFFER Ot J44.9 CHRONIC OBSTRUCTIVE PULMONARY DISEASE, U 07/14/2018 KADEN SCHAFFER Ot K21.9 GASTRO-ESOPHAGEAL REFLUX DISEASE WITHOUT 07/14/2018 KADEN SCHAFFER Ot 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 07/14/2018 KADEN SCHAFFER Ot Z79.02 STRUCTURAL ENGINEERING PROJECT MANAGER (CURRENT) USE OF ANTITHROMBOTI 07/14/2018 KADEN SCHAFFER [...] SCHAFFER Ot I25.10 ATHSCL HEART DISEASE OF [place] CORONARY 09/20/2018 KADEN SCHAFFER Ot I48.2 CHRONIC ATRIAL FIBRILLATION 09/20/2018 KADEN SCHAFFER Ot I50.30 UNSPECIFIED DIASTOLIC (CONGESTIVE) HEART 09/20/2018 KADEN SCHAFFER Ot 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 09/20/2018 KADEN SCHAFFER Ot I73.9 PERIPHERAL VASCULAR DISEASE, UNSPECIFIED 09/20/2018 KADEN SCHAFFER Ot J44.9 CHRONIC OBSTRUCTIVE PULMONARY DISEASE, U 09/20/2018 KADEN SCHAFFER Ot K21.9 GASTRO-ESOPHAGEAL REFLUX DISEASE WITHOUT 09/20/2018 KADEN SCHAFFER Ot 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 09/20/2018 KADEN SCHAFFER Ot Z79.02 STRUCTURAL ENGINEERING PROJECT MANAGER (CURRENT) USE OF ANTITHROMBOTI 09/20/2018 KADEN SCHAFFER Ot Z87.891 PERSONAL HISTORY OF NICOTINE DEPENDENCE 09/20/2018 KADEN SCHAFFER Ot Z95.828 PRESENCE OF OTHER VASCULAR IMPLANTS AND 09/20/2018 KADEN SCHAFFER Ot Z99.81 DEPENDENCE ON SUPPLEMENTAL OXYGEN 09/21/2018 KADEN SCHAFFER Ot D64.9 ANEMIA, UNSPECIFIED 09/21/2018 KADEN SCHAFFER Ot E03.9 HYPOTHYROIDISM, UNSPECIFIED 09/21/2018 KADEN SCHAFFER Marlena Ot E78.00 PURE HYPERCHOLESTEROLEMIA, UNSPECIFIED 09/21/2018 KADEN SCHAFFER Marlena Ot E78.5 HYPERLIPIDEMIA, UNSPECIFIED 09/21/2018 KADEN SCHAFFER N Ot I11.0 HYPERTENSIVE HEART DISEASE WITH HEART FA 09/21/2018 KADEN SCHAFFER Marlena Ot I25.10 ATHSCL HEART DISEASE OF [place] CORONARY 09/21/2018 SARBJIT KIMCHAD Marlena Ot I48.2 CHRONIC ATRIAL FIBRILLATION 09/21/2018 KADEN SCHAFFER Marlena Ot I50.30 UNSPECIFIED DIASTOLIC (CONGESTIVE) HEART 09/21/2018 KADEN SCHAFFER N Ot 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 09/21/2018 KADEN SCHAFFER N Ot I73.9 PERIPHERAL VASCULAR DISEASE, UNSPECIFIED 09/21/2018 KADEN SCHAFFER Marlena Ot J44.9 CHRONIC OBSTRUCTIVE PULMONARY DISEASE, U 09/21/2018 KADEN SCHAFFER Marlena Ot K21.9 GASTRO-ESOPHAGEAL REFLUX DISEASE WITHOUT 09/21/2018 KADEN SCHAFFER Marlena Ot Z79.01 SHELTER (CURRENT) USE OF ANTICOAGULANT 09/21/2018 KADEN SCHAFFER N Ot Z79.02 STRUCTURAL ENGINEERING PROJECT MANAGER (CURRENT) USE OF ANTITHROMBOTI 09/21/2018 KADEN SCHAFFER Marlena Ot Z87.891 PERSONAL HISTORY OF NICOTINE DEPENDENCE 09/21/2018 KADEN SCHAFFER Marlena Ot Z95.828 PRESENCE OF OTHER VASCULAR IMPLANTS AND 09/21/2018 KADEN SCHAFFER Marlena Ot Z99.81 DEPENDENCE ON SUPPLEMENTAL OXYGEN 12/24/2018 BOSTON SZYMANSKI, JIM Ot V72.84 EXAM PRE-OPERATIVE NOS 12/24/2018 LOUISE SPARROW MD Ot 272. 4 HYPERLIPIDEMIA NEC/NOS 12/24/2018 LOUISE SPARROW MD Ot 397. 0 TRICUSPID VALVE DISEASE 12/24/2018 LOUISE SPARROW MD Ot 401. 9 HYPERTENSION NOS 12/24/2018 LOUISE SPARROW MD Ot 416. 8 CHR PULMON HEART DIS NEC 12/24/2018 LOUISE SPARROW MD Ot 424. 0 MITRAL VALVE DISORDER 12/24/2018 LOUISE SPARROW MD Ot 427. 31 ATRIAL FIBRILLATION 12/24/2018 LOUISE SPARROW MD Ot 429. 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 09 RESPIRATORY ABNORM NEC 12/24/2018 AMBROSIO KUMAR DO Ot 496 CHR AIRWAY OBSTRUCT NEC 12/24/2018 ABDOULAYE SZYMANSKI, ANJU Melara Ot 789.01 ABDOMINAL PAIN, RIGHT UPPER QUADRANT 12/24/2018 ABDOULAYE SZYMANSKI, ANJU Melara Ot 789.06 ABDOMINAL PAIN, EPIGASTRIC 12/24/2018 BOSTON SZYMANSKI, JIM Ot V72.84 EXAM PRE-OPERATIVE NOS 12/24/2018 LOUISE SPARROW MD Ot E78. 2 MIXED HYPERLIPIDEMIA 12/24/2018 LOUISE SPARROW MD Ot I10 ESSENTIAL (PRIMARY) HYPERTENSION 12/24/2018 LOUISE SPARROW MD Ot I48. 0 PAROXYSMAL ATRIAL FIBRILLATION 12/24/2018 LOUISE SPARROW MD Ot R06. 02 SHORTNESS OF BREATH 12/24/2018 LOUISE SPARROW MD Ot I65. 23 OCCLUSION AND STENOSIS OF BILATERAL [place] 12/24/2018 LOUISE SPARROW MD Ot I10 ESSENTIAL (PRIMARY) HYPERTENSION 12/24/2018 LOUISE SPARROW MD Ot I27. 2 OTHER SECONDARY PULMONARY HYPERTENSION 12/24/2018 RAJAT GRIGSBY APRN Ot I27.2 OTHER SECONDARY PULMONARY HYPERTENSION 12/24/2018 RAJAT GRIGSBY APRN Ot J43.9 EMPHYSEMA, UNSPECIFIED 12/24/2018 RAJAT GRIGSBY APRN Ot R09.02 HYPOXEMIA 12/24/2018 AMBROSIO KUMAR DO Ot I27. 2 OTHER SECONDARY PULMONARY HYPERTENSION 12/24/2018 AMBROSIO KUMAR DO Ot J43. 9 EMPHYSEMA, UNSPECIFIED 12/24/2018 AMBROSIO KUMAR DO Ot R06. 02 SHORTNESS OF BREATH 12/24/2018 AMBROSIO KUMAR DO Ot R09. 02 HYPOXEMIA 12/24/2018 KARON MORGAN Ot E78.2 MIXED HYPERLIPIDEMIA 12/24/2018 KARON MORGAN Ot I10 ESSENTIAL (PRIMARY) HYPERTENSION 12/24/2018 KARON MORGAN Ot I50.32 CHRONIC DIASTOLIC (CONGESTIVE) HEART ROB 12/24/2018 KARON MORGAN Ot I65.23 OCCLUSION AND STENOSIS OF [place]ILATERAL [place] 12/24/2018 RAJAT GRIGSBY CLASSIFICATION INSPECTOR Ot I27.2 OTHER SECONDARY PULMONARY HYPERTENSION 12/24/2018 RAJAT GRIGSBY CLASSIFICATION INSPECTOR Ot J43.9 EMPHYSEMA, UNSPECIFIED 12/24/2018 RAJAT GRIGSBY CLASSIFICATION INSPECTOR Ot R09.02 HYPOXEMIA 12/24/2018 RAJAT GRIGSBY CLASSIFICATION INSPECTOR Ot I27.2 OTHER SECONDARY PULMONARY HYPERTENSION 12/24/2018 RAJAT GRIGSBY CLASSIFICATION INSPECTOR Ot J43.9 EMPHYSEMA, UNSPECIFIED 12/24/2018 RAJAT GRIGSBY CLASSIFICATION INSPECTOR Ot R06.02 SHORTNESS OF BREATH 12/24/2018 RAJAT GRIGSBY APRN Ot R09.02 HYPOXEMIA 12/24/2018 RAJAT GRIGSBY CLASSIFICATION INSPECTOR Ot J43.9 EMPHYSEMA, UNSPECIFIED 12/24/2018 RAJAT GRIGSBY CLASSIFICATION INSPECTOR Ot J43.9 EMPHYSEMA, UNSPECIFIED 12/24/2018 RAJAT GRIGSBY CLASSIFICATION INSPECTOR Ot R06.02 SHORTNESS OF BREATH 12/24/2018 AMBRSOIO KUMAR DO Ot J43. 9 EMPHYSEMA, UNSPECIFIED 12/24/2018 AMBROSIO KUMAR DO M Ot R06. 02 SHORTNESS OF BREATH 12/24/2018 RAJAT GRIGSBY CLASSIFICATION INSPECTOR Ot J43.9 EMPHYSEMA, UNSPECIFIED 12/24/2018 KARON MORGAN Ot E78.2 MIXED HYPERLIPIDEMIA 12/24/2018 KARON MORGAN Ot I10 ESSENTIAL (PRIMARY) HYPERTENSION 12/24/2018 RAJAT GRIGSBY APRN Ot I10 ESSENTIAL (PRIMARY) HYPERTENSION 12/24/2018 LOUISE SPARROW MD Ot E78. 2 MIXED HYPERLIPIDEMIA 12/24/2018 LOUISE SPARROW MD Ot I11. 0 HYPERTENSIVE HEART DISEASE WITH HEART FA 12/24/2018 ANDREWS SZYMANSKI, LOUISE Snyder Ot I48. 0 PAROXYSMAL ATRIAL FIBRILLATION 12/24/2018 LOUISE SPARROW MD Ot I50. 32 CHRONIC DIASTOLIC (CONGESTIVE) HEART ROB 12/24/2018 LOUISE SPARROW MD Ot I65. 23 OCCLUSION AND STENOSIS OF [place]ILATERAL [place] 12/24/2018 RAJAT GRIGSBY CLASSIFICATION INSPECTOR Ot I27.20 PULMONARY HYPERTENSION, UNSPECIFIED 12/24/2018 RAJAT GRIGSBY APRN Ot I50.32 CHRONIC DIASTOLIC (CONGESTIVE) HEART ROB 12/24/2018 RAJAT GRIGSBY APRN Ot J43.9 EMPHYSEMA, UNSPECIFIED 12/24/2018 RAJAT GRIGSBY APRN Ot R09.02 HYPOXEMIA 12/24/2018 ANJU STANFORD MD Ot E78 .2 MIXED HYPERLIPIDEMIA 12/24/2018 ANJU STANFORD MD Ot I10 ESSENTIAL (PRIMARY) HYPERTENSION 12/24/2018 ANJU STANFORD MD Ot I48 .0 PAROXYSMAL ATRIAL FIBRILLATION 12/24/2018 ANJU STANFORD MD Ot I50.32 CHRONIC DIASTOLIC (CONGESTIVE) HEART ROB 12/24/2018 ANJU STANFORD MD Ot I65.23 OCCLUSION AND STENOSIS OF [place]IL[place]AL [place] 12/24/2018 RAJAT GRIGSBY APRN Ot J43.9 EMPHYSEMA, UNSPECIFIED 12/24/2018 RAJAT GRIGSBY APRN Ot J43.9 EMPHYSEMA, UNSPECIFIED 12/24/2018 LOUISE SPARROW MD Ot E78. 5 HYPERLIPIDEMIA, UNSPECIFIED 12/24/2018 LOUISE SPARROW MD Ot I10 ESSENTIAL (PRIMARY) HYPERTENSION 12/24/2018 LOUISE SPARROW MD Ot I48. 0 PAROXYSMAL ATRIAL FIBRILLATION 12/24/2018 KARON MORGAN Ot E78.5 HYPERLIPIDEMIA, UNSPECIFIED 12/24/2018 KARON MORGAN Ot I08.1 RHEUMATIC DISORDERS OF BOTH MITRAL AND T 12/24/2018 KARON MORGAN Ot I11.0 HYPERTENSIVE HEART DISEASE WITH HEART FA 12/24/2018 KARON MORGAN Ot I50.32 CHRONIC DIASTOLIC (CONGESTIVE) HEART ROB 12/24/2018 KARON MORGAN Ot I65.29 OCCLUSION AND STENOSIS OF UNSPECIFIED CA 12/24/2018 LOUISE SPARROW MD Ot E78. 5 HYPERLIPIDEMIA, UNSPECIFIED 12/24/2018 LOUISE SPARROW MD Ot I10 ESSENTIAL (PRIMARY) HYPERTENSION 12/26/2018 GEORGETTE SHIELDS MD Ot A41 .9 SEPSIS, UNSPECIFIED ORGANISM 12/26/2018 GEORGETTE SHIELDS MD Ot D50 .0 IRON DEFICIENCY ANEMIA SECONDARY TO BLOO 12/26/2018 GEORGETTE SHIELDS MD Ot E03 .9 HYPOTHYROIDISM, UNSPECIFIED 12/26/2018 GEORGETTE SHIELDS MD Ot E78.00 PURE HYPERCHOLESTEROLEMIA, UNSPECIFIED 12/26/2018 GEORGETTE SHIELDS MD Ot E78 .5 HYPERLIPIDEMIA, UNSPECIFIED 12/26/2018 GEORGETTE SHIELDS MD Ot E87 .6 HYPOKALEMIA 12/26/2018 GEORGETTE SHIELDS MD Ot G47.00 INSOMNIA, UNSPECIFIED 12/26/2018 GEORGETTE SHIELDS MD Ot I25.10 ATHSCL HEART DISEASE OF [place] CORONARY 12/26/2018 GEORGETTE SHIELDS MD Ot I27.22 PULMONARY HYPERTENSION DUE TO LEFT HEART 12/26/2018 GEORGETTE SHIELDS MD Ot I27.23 PULMONARY HYPERTENSION DUE TO LUNG DISEA 12/26/2018 GEORGETTE SHIELDS MD Ot I34 .0 NONRHEUMATIC MITRAL (VALVE) INSUFFICIENC 12/26/2018 GEORGETTE SHIELDS MD Ot I48 .2 CHRONIC ATRIAL FIBRILLATION 12/26/2018 GEORGETTE SHIELDS MD Ot I50.33 ACUTE ON CHRONIC DIASTOLIC (CONGESTIVE) 12/26/2018 GEORGETTE SHIELDS MD Ot I65.23 OCCLUSION AND STENOSIS OF BILATERAL [place] 12/26/2018 GEORGETTE SHIELDS MD Ot 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 12/26/2018 GEORGETTE SHIELDS MD Ot I73 .9 PERIPHERAL VASCULAR DISEASE, UNSPECIFIED 12/26/2018 GEORGETTE SHIELDS MD Ot J18 .1 LOBAR PNEUMONIA, UNSPECIFIED ORGANISM 12/26/2018 GEORGETTE SHIELDS MD Ot J44 .0 CHRONIC OBSTRUCTIVE PULMON DISEASE W ACU 12/26/2018 GEORGETTE SHIELDS MD Ot J44 .1 CHRONIC OBSTRUCTIVE PULMONARY DISEASE W 12/26/2018 GEORGETTE SHIELDS MD Ot J81 .1 CHRONIC PULMONARY EDEMA 12/26/2018 GEORGETTE SHIELDS MD Ot J96.00 ACUTE RESPIRATORY FAILURE, UNSP W HYPOXI 12/26/2018 GEORGETTE SHIELDS MD Ot K21 .9 GASTRO-ESOPHAGEAL REFLUX DISEASE WITHOUT 12/26/2018 GEORGETTE SHIELDS MD Ot R65.21 SEVERE SEPSIS WITH SEPTIC SHOCK 12/26/2018 GEORGETTE SHIELDS MD Ot Z87.891 PERSONAL HISTORY OF NICOTINE DEPENDENCE 12/26/2018 CORNELIUS SZYMANSKI, GEORGETTE Schafer Ot Z99.81 DEPENDENCE ON SUPPLEMENTAL OXYGEN 12/28/2018 JIM MEAD MD Ot V72.84 EXAM PRE-OPERATIVE NOS 12/28/2018 LOUISE SPARROW MD Ot 272. 4 HYPERLIPIDEMIA NEC/NOS 12/28/2018 LOUISE SPARROW MD Ot 397. 0 TRICUSPID VALVE DISEASE 12/28/2018 LOUISE SPARROW MD Ot 401. 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 0 MITRAL VALVE DISORDER 12/28/2018 LOUISE SPARROW MD Ot 427. 31 ATRIAL FIBRILLATION 12/28/2018 LOUISE SPARROW MD Ot 429. 9 HEART DISEASE NOS 12/28/2018 LOUISE SPARROW MD Ot 433. 10 CAROTID ARTERY OCCLUSION W O CEREBRAL IN 12/28/2018 AMBROSIO KUMAR DO Ot 786. 09 RESPIRATORY ABNORM NEC 12/28/2018 AMBROSIO KUMAR DO Ot 496 CHR AIRWAY OBSTRUCT NEC 12/28/2018 ANJU STANFORD MD Ot 789.01 ABDOMINAL PAIN, RIGHT UPPER QUADRANT 12/28/2018 ANJU STANFORD MD Ot 789.06 ABDOMINAL PAIN, EPIGASTRIC 12/28/2018 JIM MEAD MD Ot V72.84 EXAM PRE-OPERATIVE NOS 12/28/2018 LOUISE SPARROW MD Ot E78. 2 MIXED HYPERLIPIDEMIA 12/28/2018 LOUISE SPARROW MD Ot I10 ESSENTIAL (PRIMARY) HYPERTENSION 12/28/2018 LOUISE SPARROW MD Ot I48. 0 PAROXYSMAL ATRIAL FIBRILLATION 12/28/2018 LOUISE SPARROW MD Ot R06. 02 SHORTNESS OF BREATH 12/28/2018 LOUISE SPARROW MD Ot I65. 23 OCCLUSION AND STENOSIS OF BILATERAL [place] 12/28/2018 LOUISE SPARROW MD Ot I10 ESSENTIAL (PRIMARY) HYPERTENSION 12/28/2018 LOUISE SPARROW MD Ot I27. 2 OTHER SECONDARY PULMONARY HYPERTENSION 12/28/2018 RAJAT GRIGSBY APRN Ot I27.2 OTHER SECONDARY PULMONARY HYPERTENSION 12/28/2018 RAJAT GRIGSBY APRN Ot J43.9 EMPHYSEMA, UNSPECIFIED 12/28/2018 RAJAT GRIGSBY APRN Ot R09.02 HYPOXEMIA 12/28/2018 AMBROSIO KUMAR DO Ot I27. 2 OTHER SECONDARY PULMONARY HYPERTENSION 12/28/2018 AMBROSIO KUMAR DO Ot J43. 9 EMPHYSEMA, UNSPECIFIED 12/28/2018 AMBROSIO KUMAR DO Ot R06. 02 SHORTNESS OF BREATH 12/28/2018 AMBROSIO KUMAR DO Ot R09. 02 HYPOXEMIA 12/28/2018 KARON MORGAN Ot E78.2 MIXED HYPERLIPIDEMIA 12/28/2018 KARON MORGAN Ot I10 ESSENTIAL (PRIMARY) HYPERTENSION 12/28/2018 KARON MORGAN Ot I50.32 CHRONIC DIASTOLIC (CONGESTIVE) HEART ROB 12/28/2018 KARON MORGAN Ot I65.23 OCCLUSION AND STENOSIS OF BILATERAL [place] 12/28/2018 RAJAT GRIGSBY APRN Ot I27.2 OTHER SECONDARY PULMONARY HYPERTENSION 12/28/2018 RAJAT GRIGSBY APRN Ot J43.9 EMPHYSEMA, UNSPECIFIED 12/28/2018 RAJAT GRIGSBY APRN Ot R09.02 HYPOXEMIA 12/28/2018 RAJAT GRIGSBY CLASSIFICATION INSPECTOR Ot I27.2 OTHER SECONDARY PULMONARY HYPERTENSION 12/28/2018 RAJAT GRIGSBY APRN Ot J43.9 EMPHYSEMA, UNSPECIFIED 12/28/2018 RAJAT GRIGSBY CLASSIFICATION INSPECTOR Ot R06.02 SHORTNESS OF BREATH 12/28/2018 RAJAT GRIGSBY CLASSIFICATION INSPECTOR Ot R09.02 HYPOXEMIA 12/28/2018 RAJAT GRIGSBY CLASSIFICATION INSPECTOR Ot J43.9 EMPHYSEMA, UNSPECIFIED 12/28/2018 RAJAT GRIGSBY CLASSIFICATION INSPECTOR Ot J43.9 EMPHYSEMA, UNSPECIFIED 12/28/2018 RAJAT GRIGSBY CLASSIFICATION INSPECTOR Ot R06.02 SHORTNESS OF BREATH 12/28/2018 AMBROSIO KUMAR DO Ot J43. 9 EMPHYSEMA, UNSPECIFIED 12/28/2018 AMBROSIO KUMAR DO Ot R06. 02 SHORTNESS OF BREATH 12/28/2018 RAJAT GRIGSBY CLASSIFICATION INSPECTOR Ot J43.9 EMPHYSEMA, UNSPECIFIED 12/28/2018 KARON MORGAN Ot E78.2 MIXED HYPERLIPIDEMIA 12/28/2018 KARON MORGAN Ot I10 ESSENTIAL (PRIMARY) HYPERTENSION 12/28/2018 RAJAT GRIGSBY APRN Ot I10 ESSENTIAL (PRIMARY) HYPERTENSION 12/28/2018 LOUISE SPARROW MD Ot E78. 2 MIXED HYPERLIPIDEMIA 12/28/2018 LOUISE SPARROW MD Ot I11. 0 HYPERTENSIVE HEART DISEASE WITH HEART FA 12/28/2018 LOUISE SPARROW MD Ot I48. 0 PAROXYSMAL ATRIAL FIBRILLATION 12/28/2018 LOUISE SPARROW MD Ot I50. 32 CHRONIC DIASTOLIC (CONGESTIVE) HEART ROB 12/28/2018 LOUISE SPARROW MD Ot I65. 23 OCCLUSION AND STENOSIS OF BILATERAL [place] 12/28/2018 RAJAT GRIGSBY APRN Ot I27.20 PULMONARY HYPERTENSION, UNSPECIFIED 12/28/2018 RAJAT GRIGSBY APRN Ot I50.32 CHRONIC DIASTOLIC (CONGESTIVE) HEART ROB 12/28/2018 RAJAT GRIGSBY APRN Ot J43.9 EMPHYSEMA, UNSPECIFIED 12/28/2018 RAJAT GRIGSBY APRN Ot R09.02 HYPOXEMIA 12/28/2018 ANJU STANFORD MD Ot E78 .2 MIXED HYPERLIPIDEMIA 12/28/2018 ANJU STANFORD MD Ot I10 ESSENTIAL (PRIMARY) HYPERTENSION 12/28/2018 ANJU STANFORD MD Ot I48 .0 PAROXYSMAL ATRIAL FIBRILLATION 12/28/2018 ANJU STANFORD MD Ot I50.32 CHRONIC DIASTOLIC (CONGESTIVE) HEART ROB 12/28/2018 ANJU STANFORD MD Ot I65.23 OCCLUSION AND STENOSIS OF BILATERAL [place] 12/28/2018 RAJAT GRIGSBY APRN Ot J43.9 EMPHYSEMA, UNSPECIFIED 12/28/2018 RAJAT GRIGSBY APRN Ot J43.9 EMPHYSEMA, UNSPECIFIED 12/28/2018 LOUISE SPARROW MD Ot E78. 5 HYPERLIPIDEMIA, UNSPECIFIED 12/28/2018 LOUISE SPARROW MD Ot I10 ESSENTIAL (PRIMARY) HYPERTENSION 12/28/2018 LOUISE SPARROW MD Ot I48. 0 PAROXYSMAL ATRIAL FIBRILLATION 12/28/2018 KARON MORGAN Ot E78.5 HYPERLIPIDEMIA, UNSPECIFIED 12/28/2018 KARON MORGAN Ot I08.1 RHEUMATIC DISORDERS OF BOTH [place] AND T 12/28/2018 KARON MORGAN Ot I11.0 HYPERTENSIVE HEART DISEASE WITH HEART FA 12/28/2018 KARON MORGAN Ot I50.32 CHRONIC DIASTOLIC (CONGESTIVE) HEART ROB 12/28/2018 KARON MORGAN Ot I65.29 OCCLUSION AND STENOSIS OF UNSPECIFIED CA 12/28/2018 LOUISE SPARROW MD Ot E78. 5 HYPERLIPIDEMIA, UNSPECIFIED 12/28/2018 LOUISE SPARROW MD Ot I10 ESSENTIAL (PRIMARY) HYPERTENSION 12/28/2018 KADEN SCHAFFER Ot D64.9 ANEMIA, UNSPECIFIED 12/28/2018 KADEN SCHAFFER Ot E03.9 HYPOTHYROIDISM, UNSPECIFIED 12/28/2018 KADEN SCHAFFER Ot E78.00 PURE HYPERCHOLESTEROLEMIA, UNSPECIFIED 12/28/2018 KADEN SCHAFFER Ot E78.5 HYPERLIPIDEMIA, UNSPECIFIED 12/28/2018 KADEN SCHAFFER Ot I11.0 HYPERTENSIVE HEART DISEASE WITH HEART FA 12/28/2018 KADEN SCHAFFER Ot I25.10 ATHSCL HEART DISEASE OF [place] CORONARY 12/28/2018 KADEN SCHAFFER Ot I48.2 CHRONIC ATRIAL FIBRILLATION 12/28/2018 KADEN SCHAFFER Ot I50.30 UNSPECIFIED DIASTOLIC (CONGESTIVE) HEART 12/28/2018 KADEN SCHAFFER Ot 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 12/28/2018 KADEN SCHAFFER Ot I73.9 PERIPHERAL VASCULAR DISEASE, UNSPECIFIED 12/28/2018 KADEN SCHAFFER Ot J44.9 CHRONIC OBSTRUCTIVE PULMONARY DISEASE, U 12/28/2018 KADEN SCHAFFER Ot K21.9 GASTRO-ESOPHAGEAL REFLUX DISEASE WITHOUT 12/28/2018 KADEN SCHAFFER Ot 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 12/28/2018 KADEN SCHAFFER Ot Z79.02 STRUCTURAL ENGINEERING PROJECT MANAGER (CURRENT) USE OF ANTITHROMBOTI 12/28/2018 KADEN SCHAFFER Ot Z87.891 PERSONAL HISTORY OF NICOTINE DEPENDENCE 12/28/2018 KADEN SCHAFFER Ot Z95.828 PRESENCE OF OTHER VASCULAR IMPLANTS AND 12/28/2018 SARBJIT, BOBAN N Ot Z99.81 DEPENDENCE ON SUPPLEMENTAL OXYGEN 01/18/2019 KADEN SCHAFFER N Ot D64.9 ANEMIA, UNSPECIFIED 01/18/2019 KADEN SCHAFFER Marlena Ot E03.9 HYPOTHYROIDISM, UNSPECIFIED 01/18/2019 KADEN SCHAFFER Marlena Ot E78.00 PURE HYPERCHOLESTEROLEMIA, UNSPECIFIED 01/18/2019 KADEN SCHAFFER Marlena Ot E78.5 HYPERLIPIDEMIA, UNSPECIFIED 01/18/2019 KADEN SCHAFFER Marlena Ot I11.0 HYPERTENSIVE HEART DISEASE WITH HEART FA 01/18/2019 KADEN SCHAFFER Marlena Ot I25.10 ATHSCL HEART DISEASE OF [place] CORONARY 01/18/2019 KADEN SCHAFFER Marlena Ot I48.2 CHRONIC ATRIAL FIBRILLATION 01/18/2019 SARBJIT KIMCHAD Marlean Ot I50.30 UNSPECIFIED DIASTOLIC (CONGESTIVE) HEART 01/18/2019 KADEN SCHAFFER Marlena Ot 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 01/18/2019 SARBJIT KADEN Marlena Ot I73.9 PERIPHERAL VASCULAR DISEASE, UNSPECIFIED 01/18/2019 SARBJITKIMCHAD Marlena Ot J44.9 CHRONIC OBSTRUCTIVE PULMONARY DISEASE, U 01/18/2019 KADEN SCHAFFER Marlena Ot K21.9 GASTRO-ESOPHAGEAL REFLUX DISEASE WITHOUT 01/18/2019 KADEN SCHAFFER N Ot 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 01/18/2019 KADEN SCHAFFER N Ot Z79.02 STRUCTURAL ENGINEERING PROJECT MANAGER (CURRENT) USE OF ANTITHROMBOTI 01/18/2019 KADEN SCHAFFER Marlena Ot Z87.891 PERSONAL HISTORY OF NICOTINE DEPENDENCE 01/18/2019 SARBJIT KADEN Marlena Ot Z95.828 PRESENCE OF OTHER VASCULAR IMPLANTS AND 01/18/2019 KADEN SCHAFFER Marlena Ot Z99.81 DEPENDENCE ON SUPPLEMENTAL OXYGEN 02/21/2019 RAJAT GRIGSBY CLASSIFICATION INSPECTOR Ot I27.23 PULMONARY HYPERTENSION DUE TO LUNG DISEA 02/21/2019 RAJAT GRIGSBY CLASSIFICATION INSPECTOR Ot I51.7 CARDIOMEGALY 02/21/2019 RAJAT GRIGSBY CLASSIFICATION INSPECTOR Ot J18.9 PNEUMONIA, UNSPECIFIED ORGANISM 02/21/2019 RAJAT GRIGSBY CLASSIFICATION INSPECTOR Ot J43.2 CENTRILOBULAR EMPHYSEMA 02/21/2019 RAJAT GRIGSBY CLASSIFICATION INSPECTOR Ot K22.8 OTHER SPECIFIED DISEASES OF ESOPHAGUS 02/21/2019 RAJAT GRIGSBY CLASSIFICATION INSPECTOR Ot N28.1 CYST OF KIDNEY, ACQUIRED 02/21/2019 RAJAT GRIGSBY CLASSIFICATION INSPECTOR Ot R59.0 LOCALIZED ENLARGED LYMPH NODES 02/25/2019 RAJAT GRIGSBY CLASSIFICATION INSPECTOR Ot I27.23 PULMONARY HYPERTENSION DUE TO LUNG DISEA 02/25/2019 RAJAT GRIGSBY CLASSIFICATION INSPECTOR Ot I51.7 CARDIOMEGALY 02/25/2019 RAJAT GRIGSBY CLASSIFICATION INSPECTOR Ot J18.9 PNEUMONIA, UNSPECIFIED ORGANISM 02/25/2019 JOSE GRIGSBYINE Genevieve CLASSIFICATION INSPECTOR Ot J43.2 CENTRILOBULAR EMPHYSEMA 02/25/2019 RAJAT GRIGSBY CLASSIFICATION INSPECTOR Ot K22.8 OTHER SPECIFIED DISEASES OF ESOPHAGUS 02/25/2019 RAJAT GRIGSBY CLASSIFICATION INSPECTOR Ot N28.1 CYST OF KIDNEY, ACQUIRED 02/25/2019 RAJAT GRIGSBY CLASSIFICATION INSPECTOR Ot R59.0 LOCALIZED ENLARGED LYMPH NODES 03/23/2019 KADEN SCHAFFER Ot D64.9 ANEMIA, UNSPECIFIED 03/23/2019 KADEN SCHAFFER Ot E03.9 HYPOTHYROIDISM, UNSPECIFIED 03/23/2019 KADEN SCHAFFER Ot E78.00 PURE HYPERCHOLESTEROLEMIA, UNSPECIFIED 03/23/2019 KADEN SCHAFFER Ot E78.5 HYPERLIPIDEMIA, UNSPECIFIED 03/23/2019 KADEN SCHAFFER Ot I11.0 HYPERTENSIVE HEART DISEASE WITH HEART FA 03/23/2019 KADEN SCHAFFER Ot I25.10 ATHSCL HEART DISEASE OF [place] CORONARY 03/23/2019 KADEN SCHAFFER Ot I48.2 CHRONIC ATRIAL FIBRILLATION 03/23/2019 KADEN SCHAFFER Ot I50.30 UNSPECIFIED DIASTOLIC (CONGESTIVE) HEART 03/23/2019 KADEN SCHAFFER N Ot 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 03/23/2019 KADEN SCHAFFER Ot I73.9 PERIPHERAL VASCULAR DISEASE, UNSPECIFIED 03/23/2019 KADEN SCHAFFER Ot J44.9 CHRONIC OBSTRUCTIVE PULMONARY DISEASE, U 03/23/2019 KADEN SCHAFFER Ot K21.9 GASTRO-ESOPHAGEAL REFLUX DISEASE WITHOUT 03/23/2019 KADEN SCHAFFER Ot 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 03/23/2019 KADEN SCHAFFER Ot Z79.02 SHELTER (CURRENT) USE OF ANTITHROMBOTI 03/23/2019 KADEN SCHAFFER Ot Z87.891 PERSONAL HISTORY OF NICOTINE DEPENDENCE 03/23/2019 KADEN SCHAFFER Ot Z95.828 PRESENCE OF OTHER VASCULAR IMPLANTS AND 03/23/2019 KADEN SCHAFFER Ot Z99.81 DEPENDENCE ON SUPPLEMENTAL OXYGEN 03/24/2019 KADEN SCHAFFER Ot D64.9 ANEMIA, UNSPECIFIED 03/24/2019 KADEN SCHAFFER Ot E03.9 HYPOTHYROIDISM, UNSPECIFIED 03/24/2019 KADEN SCHAFFER Ot E78.00 PURE HYPERCHOLESTEROLEMIA, UNSPECIFIED 03/24/2019 KADEN SCHAFFER Ot E78.5 HYPERLIPIDEMIA, UNSPECIFIED 03/24/2019 KADEN SCHAFFER Ot I11.0 HYPERTENSIVE HEART DISEASE WITH HEART FA 03/24/2019 KADEN SCHAFFER Ot I25.10 ATHSCL HEART DISEASE OF [place] CORONARY 03/24/2019 KADEN SCHAFFER Ot I48.2 CHRONIC ATRIAL FIBRILLATION 03/24/2019 KADEN SCHAFFER Ot I50.30 UNSPECIFIED DIASTOLIC (CONGESTIVE) HEART 03/24/2019 KADEN SCHAFFER Ot 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 03/24/2019 KADEN SCHAFFER Ot I73.9 PERIPHERAL VASCULAR DISEASE, UNSPECIFIED 03/24/2019 KADEN SCHAFFER Ot J44.9 CHRONIC OBSTRUCTIVE PULMONARY DISEASE, U 03/24/2019 KADEN SCHAFFER Ot K21.9 GASTRO-ESOPHAGEAL REFLUX DISEASE WITHOUT 03/24/2019 KADEN SCHAFFER Ot 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 23 PULMONARY HYPERTENSION DUE TO LUNG DISEA 04/13/2019 AMBROSIO KUMAR DO Ot I51. 7 CARDIOMEGALY 04/13/2019 JSOÉ NEWMAN AMBROSIO M Ot I51. 89 OTHER ILL-DEFINED HEART DISEASES 04/13/2019 JOSÉ NEWMANAMBROSIO Ot J43. 9 EMPHYSEMA, UNSPECIFIED 04/13/2019 JOSÉ NEWMAN AMBROSIO M Ot J81. 1 CHRONIC PULMONARY EDEMA 04/13/2019 JOSÉ NEWMAN AMBROSIO Massimo Ot R91. 8 OTHER NONSPECIFIC ABNORMAL FINDING OF [place] 04/25/2019 AMBROSIO KUMAR DO Ot I27. 23 PULMONARY HYPERTENSION DUE TO LUNG DISEA 04/25/2019 JOSÉ DOAMBROSIO Ot I51. 7 CARDIOMEGALY 04/25/2019 JOSÉ NEWMANAMBROSIO Ot I51. 89 OTHER ILL-DEFINED HEART DISEASES 04/25/2019 JOSÉ AMBROSIO Ot J43. 9 EMPHYSEMA, UNSPECIFIED 04/25/2019 JOSÉ NEWMANAMBROSIO Ot J81. 1 CHRONIC PULMONARY EDEMA 04/25/2019 JOSÉ AMBROSIO Ot R91. 8 OTHER NONSPECIFIC ABNORMAL FINDING OF [place] 06/21/2019 KARON MORGAN Ot I10 ESSENTIAL (PRIMARY) HYPERTENSION 06/21/2019 KARON MORGAN Ot I10 ESSENTIAL (PRIMARY) HYPERTENSION 06/23/2019 KARON MORGAN Ot E78.5 HYPERLIPIDEMIA, UNSPECIFIED 06/23/2019 KARON MORGAN Ot I10 ESSENTIAL (PRIMARY) HYPERTENSION 07/28/2019 HERLINDA MANZANARES DO Ot Z01.818 ENCOUNTER FOR OTHER PREPROCEDURAL EXAMIN 07/28/2019 HERLINDA MANZANARES DO Ot D64. 9 ANEMIA, UNSPECIFIED 07/28/2019 HERLINDA MANZANARES DO Ot E03. 9 HYPOTHYROIDISM, UNSPECIFIED 07/28/2019 HERLINDA MANZANARES DO Ot E78. 5 HYPERLIPIDEMIA, UNSPECIFIED 07/28/2019 HERLINDA MANZANARES DO Ot I11. 0 HYPERTENSIVE HEART DISEASE WITH HEART FA 07/28/2019 HERLINDA MANZANARES DO Ot I27. 20 PULMONARY HYPERTENSION, UNSPECIFIED 07/28/2019 HERLINDA MANZANARES DO Ot I48. 91 UNSPECIFIED ATRIAL FIBRILLATION 07/28/2019 HERLINDA MANZANARES DO Ot I50. 9 HEART FAILURE, UNSPECIFIED 07/28/2019 HERLINDA MANZANARES DO Ot J44. 9 CHRONIC OBSTRUCTIVE PULMONARY DISEASE, U 07/28/2019 HERLINDA MANZANARES DO Ot J98. 8 OTHER SPECIFIED RESPIRATORY DISORDERS 07/28/2019 HERLINDA MANZANARES DO Ot K21. 9 GASTRO-ESOPHAGEAL REFLUX DISEASE WITHOUT 07/28/2019 HERLINDA MANZANARES DO Ot Z79.899 OTHER SHELTER (CURRENT) DRUG THERAPY 07/28/2019 HERLINDA MANZANARES DO Ot Z82. 49 FAMILY HX OF ISCHE[place] HEART DIS AND OTH DI 07/28/2019 HERLINDA MANZANARES DO Ot Z87.891 PERSONAL HISTORY OF NICOTINE DEPENDENCE 07/28/2019 HERLINDA MANZANARES DO Ot Z88. 8 ALLERGY STATUS TO [facility] DRUG/MEDS/BIOL SUB 07/28/2019 HERLINDA MANZANARES DO Ot Z90. 89 ACQUIRED ABSENCE OF OTHER ORGANS 08/01/2019 HERLINDA MANZANARES DO Ot Z01.818 ENCOUNTER FOR OTHER PREPROCEDURAL EXAMIN 08/02/2019 HERLINDA MANZANARES DO Ot D64. 9 ANEMIA, UNSPECIFIED 08/02/2019 HERLINDA MANZANARES DO Ot E03. 9 HYPOTHYROIDISM, UNSPECIFIED 08/02/2019 HERLINDA MANZANARES DO Ot E78. 5 HYPERLIPIDEMIA, UNSPECIFIED 08/02/2019 HERLINDA MANZANARES DO Ot I11. 0 HYPERTENSIVE HEART DISEASE WITH HEART FA 08/02/2019 HERLINDA MANZANARES DO Ot I27. 20 PULMONARY HYPERTENSION, UNSPECIFIED 08/02/2019 HERLINDA MANZANARES DO Ot I48. 91 UNSPECIFIED ATRIAL FIBRILLATION 08/02/2019 HERLINDA MANZANARES DO Ot I50. 9 HEART FAILURE, UNSPECIFIED 08/02/2019 HERLINDA MANZANARES DO Ot J44. 9 CHRONIC OBSTRUCTIVE PULMONARY DISEASE, U 08/02/2019 HERLINDA MANZANARES DO Ot J98. 8 OTHER SPECIFIED RESPIRATORY DISORDERS 08/02/2019 HERLINDA MANZANARES DO Ot K21. 9 GASTRO-ESOPHAGEAL REFLUX DISEASE WITHOUT 08/02/2019 HERLINDA MANZANARES DO Ot Z79.899 OTHER SHELTER (CURRENT) DRUG THERAPY 08/02/2019 HERLINDA MANZANARES DO Ot Z82. 49 FAMILY HX OF ISCHEM HEART DIS AND OTH DI 08/02/2019 HERLINDA MANZANARES DO Ot Z87.891 PERSONAL HISTORY OF NICOTINE DEPENDENCE 08/02/2019 MANZANARES HERLINDA NEWMAN Ot Z88. 8 ALLERGY STATUS TO OTH DRUG/MEDS/BIOL SUB 08/02/2019 HERLINDA MANZANARES DO Ot Z90. 89 ACQUIRED ABSENCE OF OTHER ORGANS 08/04/2019 HERLINDA MANZANARES DO Ot D64. 9 ANEMIA, UNSPECIFIED 08/04/2019 MANZANARES HERLINDA NEWMAN Ot E03. 9 HYPOTHYROIDISM, UNSPECIFIED 08/04/2019 MANZANARES HERLINDA NEWMAN Ot E78. 5 HYPERLIPIDEMIA, UNSPECIFIED 08/04/2019 MANZANARES HERLINDA NEWMAN Ot I11. 0 HYPERTENSIVE HEART DISEASE WITH HEART FA 08/04/2019 HERLINDA MANZANARES DO Ot I27. 20 PULMONARY HYPERTENSION, UNSPECIFIED 08/04/2019 MANZANARES DOHERLINDA Ot I48. 91 UNSPECIFIED ATRIAL FIBRILLATION 08/04/2019 MANZANARES DOHERLINDA Ot I50. 9 HEART FAILURE, UNSPECIFIED 08/04/2019 MANZANARES HERLINDA NEWMAN Ot J44. 9 CHRONIC OBSTRUCTIVE PULMONARY DISEASE, U 08/04/2019 MANZANARES HERLINDA NEWMAN Ot J98. 8 OTHER SPECIFIED RESPIRATORY DISORDERS 08/04/2019 HERLINDA MANZANARES DO Ot K21. 9 GASTRO-ESOPHAGEAL REFLUX DISEASE WITHOUT 08/04/2019 HERLINDA MANZANARES DO Ot Z79.899 OTHER SHELTER (CURRENT) DRUG THERAPY 08/04/2019 MANZANARES HERLINDA NEWMAN Ot Z82. 49 FAMILY HX OF I[place]HE[place] HEART DIS AND OTH DI 08/04/2019 HERLINDA MANZANARES DO Ot Z87.891 PERSONAL HISTORY OF NICOTINE DEPENDENCE 08/04/2019 MANZANARES HERLINDA NEWMAN Ot Z88. 8 ALLERGY STATUS TO OTH DRUG/MEDS/BIOL SUB 08/04/2019 MANZANARES HERLINDA NEWMAN Ot Z90. 89 ACQUIRED ABSENCE OF OTHER ORGANS 10/25/2019 LOUISE SPARROW MD Ot E78. 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 9 HYPERTENSIVE HEART DISEASE WITHOUT HEART 10/25/2019 LOUISE SPARROW MD Ot I48. 91 UNSPECIFIED ATRIAL FIBRILLATION 10/25/2019 ANDREWS SZYMANSKI, LOUISE Snyder Ot I65. 23 OCCLUSION AND STENOSIS OF [place] 01/16/2020 KADEN SCHAFFER Ot D64.9 ANEMIA, UNSPECIFIED 01/16/2020 KADEN SCHAFFER Ot E03.9 HYPOTHYROIDISM, UNSPECIFIED 01/16/2020 KADEN SCHAFFER Ot E78.00 PURE HYPERCHOLESTEROLEMIA, UNSPECIFIED 01/16/2020 KADEN SCHAFFER Ot E78.5 HYPERLIPIDEMIA, UNSPECIFIED 01/16/2020 KADEN SCHAFFER Ot I11.0 HYPERTENSIVE HEART DISEASE WITH HEART FA 01/16/2020 KADEN SCHAFFER Ot I25.10 ATHSCL HEART DISEASE OF [place] CORONARY 01/16/2020 KADEN SCHAFFER Ot I48.2 CHRONIC ATRIAL FIBRILLATION 01/16/2020 KADEN SCHAFFER Ot I50.30 UNSPECIFIED DIASTOLIC (CONGESTIVE) HEART 01/16/2020 KADEN SCHAFFER Ot 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 01/16/2020 KADEN SCHAFFER Ot I73.9 PERIPHERAL VASCULAR DISEASE, UNSPECIFIED 01/16/2020 KADEN SCHAFFER Ot J44.9 CHRONIC OBSTRUCTIVE PULMONARY DISEASE, U 01/16/2020 KADEN SCHAFFER Ot K21.9 GASTRO-ESOPHAGEAL REFLUX DISEASE WITHOUT 01/16/2020 KADEN SCHAFFER Ot Z79.01 SHELTER (CURRENT) USE OF ANTICOAGULANT 01/16/2020 KADEN SCHAFFER Ot Z79.02 SHELTER (CURRENT) USE OF ANTITHROMBOTI 01/16/2020 KADEN SCHAFFER Ot Z87.891 PERSONAL HISTORY OF NICOTINE DEPENDENCE 01/16/2020 KADEN SCHAFFER Ot Z95.828 PRESENCE OF OTHER VASCULAR IMPLANTS AND 01/16/2020 KADEN SCHAFFER Ot Z99.81 DEPENDENCE ON SUPPLEMENTAL OXYGEN 01/17/2020 KADEN SCHAFFER Ot D64.9 ANEMIA, UNSPECIFIED 01/17/2020 KADEN SCHAFFER Ot D64.9 ANEMIA, UNSPECIFIED 02/14/2020 Abdoulaye, Anju W E03.9 HYPOTHYROIDISM, UNSPECIFIED 02/14/2020 Abdoulaye Anju W E03.9 HYPOTHYROIDISM, UNSPECIFIED Procedures Code Description Performed By Yusef tapia On 37.22 LEFT HEART CARDIAC CATH 06/29/2012 88.53 LT H EART ANGIOCARDIOGRAM 06/29/2012 88.56 TREVOR MARY ARTERIOGR-2 CATH 06/29/2012 [id number] EX CISION OF STOMACH, ENDO, DIAGN 01/15/2017 [id number] EX CISION OF STOMACH, PYLORUS, ENDO, DIAG 01/15/2017 [id number] IN SERTION OF INFUSION DEV INTO SUP VENA 12/24/2018 Results Test Result Range Thyroid Stimulating Hormone - 07/18/16 1 4:46 TSH 2.93 mIU/mL 0.32-5.00 [id number] - 08/11/16 16:08 Serum or plasma urea nitrogen measurement (mass/volume ) 16 mg/dL 7-18 Serum or plasma creatinine measurement (mass/volume) 0.87 mg/dL 0.60-1.30 Serum or plasma urea nitrogen/creatinine mass ratio 18 NRG Serum or plasma creatinine measurement w ith calculation of estimated glomerular filtration rate > NRG Automated blood complete blood count (he mogram) panel - 10/28/16 13:50 Blood leukocytes automated count (number/volume) 9.1 10*3/uL 4.3-11.0 Blood erythrocytes automated count (number/volume) 4.00 10*6/uL 4.35-5.85 Venous blood hemoglobin measurement (mass/volume) 10.4 g/dL 11.5-16.0 Blood hematocrit (volume fraction) 33 % 35-52 Automated erythrocyte mean corpuscular volume 82 [ foz_us] 80-99 Automated erythrocyte mean corpuscular h emoglobin (mass per erythrocyte) 26 pg 25-34 Automated erythrocyte mean corpuscular h emoglobin concentration measurement (mass/volume) 32 g/dL 32-36 Automated erythrocyte distribution width ratio 22. 1 % 10.0- 14.5 Automated blood platelet count [...] 5-14 Serum or plasma urea nitrogen measurement (mass/volume ) 19 mg/dL 7-18 Serum or plasma creatinine measurement (mass/volume) 0.99 mg/dL 0.60-1.30 Serum or plasma urea nitrogen/creatinine mass ratio 19 NRG Serum or plasma creatinine measurement w ith calculation of estimated glomerular filtration rate 55 NRG Serum or plasma glucose measurement (mass/volume) 123 mg/dL 70-105 Serum or plasma calcium measurement (mass/volume) 9.1 mg/dL 8.5-10.1 Serum or plasma total bilirubin measurement (mass/volu me) 0.4 mg/dL 0.1-1.0 Serum or plasma alkaline phosphatase agustín surement (enzymatic activity/volume) 103 U/L 40-136 Serum or plasma aspartate aminotransfera se measurement (enzymatic activity/volume) 21 U/L 5-34 Serum or plasma alanine aminotransferase measurement (enzymatic activity/volume) 13 U/L 0-55 Serum or plasma protein measurement (mass/volume) 6.9 g/dL 6.4-8.2 Serum or plasma albumin measurement (mass/volume) 4.1 g/dL 3.2-4.5 Serum or plasma lithium measurement (mol es/volume) - 10/28/16 13:50 BNP level 900.9 pg/mL <100.0 Comprehensive metabolic panel - 12/16/16 11:07 Serum or plasma sodium measurement (moles/volume) 142 mmol/L 135-145 Serum or plasma potassium measurement (moles/volume) 3.6 mmol/L 3.6-5.0 Serum or plasma chloride measurement (moles/volume) 99 mmol/L 98-107 Carbon dioxide 33 mmol/L 21-32 Serum or plasma anion gap determination (moles/volume) 10 mmol/L 5-14 Serum or plasma urea nitrogen measurement (mass/volume ) 18 mg/dL 7-18 Serum or plasma creatinine measurement (mass/volume) 1.02 mg/dL 0.60-1.30 Serum or plasma urea nitrogen/creatinine mass ratio 18 NRG Serum or plasma creatinine measurement w ith calculation of estimated glomerular filtration rate 54 NRG Serum or plasma glucose measurement (mass/volume) 112 mg/dL 70-105 Serum or plasma calcium measurement (mass/volume) 9.3 mg/dL 8.5-10.1 Serum or plasma total bilirubin measurement (mass/volu me) 0.7 mg/dL 0.1-1.0 Serum or plasma alkaline phosphatase agustín surement (enzymatic activity/volume) 100 U/L 40-136 Serum or plasma aspartate aminotransfera se measurement (enzymatic activity/volume) 21 U/L 5-34 Serum [...] Serum or plasma cholesterol in HDL measurement (mass/v olume) 62 mg/dL 40-60 Cholesterol in LDL [mass/volume] in serum or plasma by direct assay 62 mg/dL 1-129 Serum or plasma cholesterol in VLDL measurement (mass/ volume) 11 mg/dL 5-40 Complete blood count (CBC) with automate d white blood cell (WBC) differential - 12/26/16 07:40 Blood leukocytes automated count (number/volume) 10.2 10*3/uL 4.3-11.0 Blood erythrocytes automated count (number/volume) 4.42 10*6/uL 4.35-5.85 Venous blood hemoglobin measurement (mass/volume) 13.4 g/dL 11.5-16.0 Blood hematocrit (volume fraction) 41 % 35-52 Automated erythrocyte mean corpuscular volume 92 [ foz_us] 80-99 Automated erythrocyte mean corpuscular h emoglobin (mass per erythrocyte) 30 pg 25-34 Automated erythrocyte mean corpuscular h emoglobin concentration measurement (mass/volume) 33 g/dL 32-36 Automated erythrocyte distribution width ratio 20. 1 % 10.0- 14.5 Automated blood platelet count [...] 10*3 1.0-4.0 Blood monocytes automated count (number/volume) 1. 1 10*3 0.0-1.0 Automated eosinophil count 0.2 10*3/uL 0 .0-0.3 Automated blood basophil count (count/volume) 0.0 10*3/uL 0.0-0.1 Methicillin resistant Staphylococcus aur eus (MRSA) screening culture - 12/26/16 07:40 Methicillin resistant Staphylococcus aureus (MRSA) scr eening culture NEG NRG Complete blood count (CBC) with automate d white blood cell (WBC) differential - 01/14/17 15:34 Blood leukocytes automated count (number/volume) 12.8 10*3/uL 4.3-11.0 Blood erythrocytes automated count (number/volume) 2.62 10*6/uL 4.35-5.85 Venous blood hemoglobin measurement (mass/volume) 8.1 g/dL 11.5-16.0 Blood hematocrit (volume fraction) 25 % 35-52 Automated erythrocyte mean corpuscular volume 95 [ foz_us] 80-99 Automated erythrocyte mean corpuscular h emoglobin (mass per erythrocyte) 31 pg 25-34 Automated erythrocyte mean corpuscular h emoglobin concentration measurement (mass/volume) 33 g/dL 32-36 Automated erythrocyte distribution width ratio 17. 8 % 10.0- 14.5 Automated blood platelet count [...] 10*3 1.0-4.0 Blood monocytes automated count (number/volume) 1. 4 10*3 0.0-1.0 Automated eosinophil count 0.1 10*3/uL 0 .0-0.3 Automated blood basophil count (count/volume) 0.0 10*3/uL 0.0-0.1 PT panel in platelet poor plasma by coag ulation assay - 01/14/17 15:34 Prothrombin time (PT) in platelet poor plasma by coagu lation assay 21.7 s 12.2-14.7 INR in platelet poor plasma or blood by coagulation as say 1.9 0.8-1.4 Activated partial thromboplastin time (a PTT) in platelet poor plasma bycoagulation assay - 01/14/17 15:34 Activated partial thromboplastin time (a PTT) in platelet poor plasma bycoagulation assay 33 s 24-35 Blood manual differential performed dete ction - 01/14/17 15:34 Blood monocytes/100 leukocytes 7 % NRG Manual blood segmented neutrophils/100 leukocytes 83 % NRG Blood band neutrophils/100 leukocytes 2 % NRG Manual blood lymphocytes/100 leukocytes 8 % NRG Manual eosinophils/100 leukocytes in nose 0 % NRG Manual blood basophils/100 leukocytes 0 % NRG Blood polychromasia detection by light microscopy SLIGHT NRG Comprehensive metabolic panel - 01/14/17 15:34 Serum or plasma sodium measurement (moles/volume) 140 mmol/L 135-145 Serum or plasma potassium measurement (moles/volume) 3.8 mmol/L 3.6-5.0 Serum or plasma chloride measurement (moles/volume) 98 mmol/L 98-107 Carbon dioxide 30 mmol/L 21-32 Serum or plasma anion gap determination (moles/volume) 12 mmol/L 5-14 Serum or plasma urea nitrogen measurement (mass/volume ) 43 mg/dL 7-18 Serum or plasma creatinine measurement (mass/volume) 1.08 mg/dL 0.60-1.30 Serum or plasma urea nitrogen/creatinine mass ratio 40 0-20 Serum or plasma creatinine measurement w ith calculation of estimated glomerular filtration rate 50 NRG Serum or plasma glucose measurement (mass/volume) 155 mg/dL 70-105 Serum or plasma calcium measurement (mass/volume) 9.4 mg/dL 8.5-10.1 Serum or plasma total bilirubin measurement (mass/volu me) 0.4 mg/dL 0.1-1.0 Serum or plasma alkaline phosphatase agustín surement (enzymatic activity/volume) 71 U/L 40-136 Serum or plasma aspartate aminotransfera se measurement (enzymatic activity/volume) 23 U/L 5-34 Serum or plasma alanine aminotransferase measurement (enzymatic activity/volume) 13 U/L 0-55 Serum or plasma protein measurement (mass/volume) 6.6 g/dL 6.4-8.2 Serum or plasma albumin measurement (mass/volume) 3.9 g/dL 3.2-4.5 Magnesium - 01/14/17 15:34 Magnesium 2.0 mg/dL 1.8-2.4 Serum or plasma creatine kinase measurem ent (enzymatic activity/volume) - 01/14/17 15:34 Serum or plasma creatine kinase measurem ent (enzymatic activity/volume) 48 U/L 29-168 Serum or plasma lithium measurement (mol es/volume) - 01/14/17 15:34 BNP level 434.5 pg/mL <100.0 Serum or plasma creatine kinase MB measu rement (enzymatic activity/volume) - 01/14/17 15:34 Serum or plasma creatine kinase MB measu rement (enzymatic activity/volume) 1.7 ng/mL <6.6 Serum or plasma troponin i.cardiac measu rement (mass/volume) - 01/14/17 15:34 Serum or plasma troponin i.cardiac measurement (mass/v olume) < ng/mL <0.30 Serum or plasma thyroxine (T4) free gianna urement (mass/volume) - 01/14/17 15:34 Serum or plasma thyroxine (T4) free measurement (mass/ volume) 0.88 ng/dL 0.70-1.48 Serum or plasma thyrotropin measurement by detection limit <=0.05 miu/l (units/volume) - 01/14/17 15:34 Serum or plasma thyrotropin measurement by detection limit <=0.05 miu/l (units/volume) 5.54 u[iU]/mL 0.35-4.94 Serum or plasma ferritin measurement (ma ss/volume) - 01/14/17 15:34 Serum or plasma ferritin measurement (mass/volume) 37.0 % 15.0-150.0 IRON TEST - 01/14/17 15:34 Serum or plasma iron measurement (mass/volume) 129 % 35-180 RED CELLS LEUKO REDUCED AS1 - 01/14/17 1 7:19 RED CELLS LEUKO REDUCED AS1 T RANSFUSED 01/14/17 2317 NRG Blood type T Indirect antibody screen [place] - 01/14/17 17:19 ABO+Rh group AP NRG Transfusion band number [id number] NRG Blood group antibody screen NEGATIVE NR G Complete blood count (CBC) with automate d white blood cell (WBC) differential - 01/15/17 03:24 Blood leukocytes automated count (number/volume) 9.1 10*3/uL 4.3-11.0 Blood erythrocytes automated count (number/volume) 3.62 10*6/uL 4.35-5.85 Venous blood hemoglobin measurement (mass/volume) 11.0 g/dL 11.5-16.0 Blood hematocrit (volume fraction) 33 % 35-52 Automated erythrocyte mean corpuscular volume 90 [ foz_us] 80-99 Automated erythrocyte mean corpuscular h emoglobin (mass per erythrocyte) 30 pg 25-34 Automated erythrocyte mean corpuscular h emoglobin concentration measurement (mass/volume) 34 g/dL 32-36 Automated erythrocyte distribution width ratio 18. 4 % 10.0- 14.5 Automated blood platelet count [...] 10*3 1.0-4.0 Blood monocytes automated count (number/volume) 1. 1 10*3 0.0-1.0 Automated eosinophil count 0.2 10*3/uL 0 .0-0.3 Automated blood basophil count (count/volume) 0.0 10*3/uL 0.0-0.1 Comprehensive metabolic panel - 01/15/17 03:24 Serum or plasma sodium measurement (moles/volume) 142 mmol/L 135-145 Serum or plasma potassium measurement (moles/volume) 3.1 mmol/L 3.6-5.0 Serum or plasma chloride measurement (moles/volume) 101 mmol/L 98-107 Carbon dioxide 26 mmol/L 21-32 Serum or plasma anion gap determination (moles/volume) 15 mmol/L 5-14 Serum or plasma urea nitrogen measurement (mass/volume ) 33 mg/dL 7-18 Serum or plasma creatinine measurement (mass/volume) 0.85 mg/dL 0.60-1.30 Serum or plasma urea nitrogen/creatinine mass ratio 39 0-20 Serum or plasma creatinine measurement w ith calculation of estimated glomerular filtration rate > NRG Serum or plasma glucose measurement (mass/volume) 115 mg/dL 70-105 Serum or plasma calcium measurement (mass/volume) 9.0 mg/dL 8.5-10.1 Serum or plasma total bilirubin measurement (mass/volu me) 1.2 mg/dL 0.1-1.0 Serum or plasma alkaline phosphatase agustín surement (enzymatic activity/volume) 75 U/L 40-136 Serum or plasma aspartate aminotransfera se measurement (enzymatic activity/volume) 23 U/L 5-34 Serum or plasma alanine aminotransferase measurement (enzymatic activity/volume) 14 U/L 0-55 Serum or plasma protein measurement (mass/volume) 5.6 g/dL 6.4-8.2 Serum or plasma albumin measurement (mass/volume) 3.7 g/dL 3.2-4.5 Stool occult blood screen - 01/15/17 06: 30 Stool gastrointestinal hemoglobin detection NEGATI VE NEGATIVE Whole blood basic metabolic panel - 01/01 01/17 03:49 Serum or plasma sodium measurement (moles/volume) 143 mmol/L 135-145 Serum or plasma potassium measurement (moles/volume) 3.6 mmol/L 3.6-5.0 Serum or plasma chloride measurement (moles/volume) 102 mmol/L 98-107 Carbon dioxide 28 mmol/L 21-32 Serum or plasma anion gap determination (moles/volume) 13 mmol/L 5-14 Serum or plasma urea nitrogen measurement (mass/volume ) 19 mg/dL 7-18 Serum or plasma creatinine measurement (mass/volume) 0.81 mg/dL 0.60-1.30 Serum or plasma urea nitrogen/creatinine mass ratio 23 0-20 Serum or plasma creatinine measurement w ith calculation of estimated glomerular filtration rate > NRG Serum or plasma glucose measurement (mass/volume) 122 mg/dL 70-105 Serum or plasma calcium measurement (mass/volume) 8.9 mg/dL 8.5-10.1 Magnesium - 01/16/17 03:49 Magnesium 2.1 mg/dL 1.8-2.4 Complete blood count (CBC) with automate d white blood cell (WBC) differential - 01/16/17 03:49 Blood leukocytes automated count (number/volume) 8.6 10*3/uL 4.3-11.0 Blood erythrocytes automated count (number/volume) 3.64 10*6/uL 4.35-5.85 Venous blood hemoglobin measurement (mass/volume) 11.3 g/dL 11.5-16.0 Blood hematocrit (volume fraction) 34 % 35-52 Automated erythrocyte mean corpuscular volume 93 [ foz_us] 80-99 Automated erythrocyte mean corpuscular h emoglobin (mass per erythrocyte) 31 pg 25-34 Automated erythrocyte mean corpuscular h emoglobin concentration measurement (mass/volume) 34 g/dL 32-36 Automated erythrocyte distribution width ratio 19. 7 % 10.0- 14.5 Automated blood platelet count (count/volume) 202 10*3/uL 130-400 Automated blood platelet mean volume measurement 11.7 [foz_us] 7.4-10.4 Automated blood neutrophils/100 leukocytes 73 % 42-75 Automated blood lymphocytes/100 leukocytes 12 % 12-44 Blood monocytes/100 leukocytes 13 % 0-12 Automated blood eosinophils/100 leukocytes 2 % 0-10 Automated blood basophils/100 leukocytes 1 % 0-10 Blood neutrophils automated count (number/volume) 6.3 10*3 1.8-7.8 Blood lymphocytes automated count (number/volume) 1.0 10*3 1.0-4.0 Blood monocytes automated count (number/volume) 1. 1 10*3 0.0-1.0 Automated eosinophil count 0.2 10*3/uL 0 .0-0.3 Automated blood basophil count (count/volume) 0.0 10*3/uL [...] 5-14 Serum or plasma urea nitrogen measurement (mass/volume ) 17 mg/dL 7-18 Serum or plasma creatinine measurement (mass/volume) 1.18 mg/dL 0.60-1.30 Serum or plasma urea nitrogen/creatinine mass ratio 14 NRG Serum or plasma creatinine measurement w ith calculation of estimated glomerular filtration rate 45 NRG Serum or plasma glucose measurement (mass/volume) 148 mg/dL 70-105 Serum or plasma calcium measurement (mass/volume) 9.1 mg/dL 8.5-10.1 Serum or plasma total bilirubin measurement (mass/volu me) 0.5 mg/dL 0.1-1.0 Serum or plasma alkaline phosphatase agustín surement (enzymatic activity/volume) 116 U/L 40-136 Serum or plasma aspartate aminotransfera se measurement (enzymatic activity/volume) 22 U/L 5-34 Serum [...] Serum or plasma cholesterol in HDL measurement (mass/v olume) 53 mg/dL 40-60 Cholesterol in LDL [mass/volume] in serum or plasma by direct assay 63 mg/dL 1-129 Serum or plasma cholesterol in VLDL measurement (mass/ volume) 10 mg/dL 5-40 Hemoglobin A1C - 06/03/17 14:17 % A1C 5.30 % 5.40-6.60 AvGlu 111 mg/dL 70-110 Complete blood count (CBC) with automate d white blood cell (WBC) differential - 12/24/18 07:25 Blood leukocytes automated count (number/volume) 17.7 10*3/uL 4.3-11.0 Blood erythrocytes automated count (number/volume) 4.17 10*6/uL 4.35-5.85 Venous blood hemoglobin measurement (mass/volume) 13.8 g/dL 11.5-16.0 Blood hematocrit (volume fraction) 40 % 35-52 Automated erythrocyte mean corpuscular volume 95 [ foz_us] 80-99 Automated erythrocyte mean corpuscular h emoglobin (mass per erythrocyte) 33 pg 25-34 Automated erythrocyte mean corpuscular h emoglobin concentration measurement (mass/volume) 35 g/dL 32-36 Automated erythrocyte distribution width ratio 14. 4 % 10.0- 14.5 Automated blood platelet count [...] 10*3 1.0-4.0 Blood monocytes automated count (number/volume) 1. 3 10*3 0.0-1.0 Automated eosinophil count 0.1 10*3/uL 0 .0-0.3 Automated blood basophil count (count/volume) 0.0 10*3/uL 0.0-0.1 Comprehensive metabolic panel - 12/24/18 07:25 Serum or plasma sodium measurement (moles/volume) 139 mmol/L 135-145 Serum or plasma potassium measurement (moles/volume) 4.0 mmol/L 3.6-5.0 Serum or plasma chloride measurement (moles/volume) 103 mmol/L 98-107 Carbon dioxide 26 mmol/L 21-32 Serum or plasma anion gap determination (moles/volume) 10 mmol/L 5-14 Serum or plasma urea nitrogen measurement (mass/volume ) 19 mg/dL 7-18 Serum or plasma creatinine measurement (mass/volume) 1.02 mg/dL 0.60-1.30 Serum or plasma urea nitrogen/creatinine mass ratio 19 NRG Serum or plasma creatinine measurement w ith calculation of estimated glomerular filtration rate 53 NRG Serum or plasma glucose measurement (mass/volume) 104 mg/dL 70-105 Serum or plasma calcium measurement (mass/volume) 9.0 mg/dL 8.5-10.1 Serum or plasma total bilirubin measurement (mass/volu me) 0.9 mg/dL 0.1-1.0 Serum or plasma alkaline phosphatase agustín surement (enzymatic activity/volume) 83 U/L 40-136 Serum or plasma aspartate aminotransfera se measurement (enzymatic activity/volume) 23 U/L 5-34 Serum or plasma alanine aminotransferase measurement (enzymatic activity/volume) 14 U/L 0-55 Serum or plasma protein measurement (mass/volume) 6.8 g/dL 6.4-8.2 Serum or plasma albumin measurement (mass/volume) 3.9 g/dL 3.2-4.5 CALCIUM CORRECTED 9.1 mg/dL 8.5-10.1 PT panel in platelet poor plasma by coag ulation assay - 12/24/18 07:25 Prothrombin time (PT) in platelet poor plasma by coagu lation assay 42.6 s 12.2-14.7 INR in platelet poor plasma or blood by coagulation as say 4.2 0.8-1.4 Activated partial thromboplastin time (a PTT) in platelet poor plasma bycoagulation assay - 12/24/18 07:25 Activated partial thromboplastin time (a PTT) in platelet poor plasma bycoagulation assay 45 s 24-35 Serum or plasma troponin i.cardiac measu rement (mass/volume) - 12/24/18 07:25 Serum or plasma troponin i.cardiac measurement (mass/v olume) < ng/mL <0.028 Blood manual differential performed dete ction - 12/24/18 07:25 Blood monocytes/100 leukocytes 7 % NRG Manual blood segmented neutrophils/100 leukocytes 83 % NRG Blood band neutrophils/100 leukocytes 6 % NRG Manual blood lymphocytes/100 leukocytes 4 % NRG Blood erythrocyte morphology finding identification NORMAL NRG THYROID STIMULATING HORMONE - 12/24/18 0 7:25 THYROID STIMULATING HORMONE 5.43 u[iU]/mL 0.35-4.94 Bacterial blood culture - 12/24/18 07:25 Bacterial blood culture NG NRG Bacterial blood culture - 12/24/18 07:25 Bacterial blood culture NG NRG Blood lactic acid measurement (moles/vol ume) - 12/24/18 07:45 Blood lactic acid measurement (moles/volume) 1.16 mmol/L 0.50-2.00 Complete urinalysis with reflex to cultu re - 12/24/18 07:50 Urine color determination YELLOW NRG Urine clarity determination CLEAR NR G Urine pH measurement by test strip 7 5-9 Specific gravity of urine by test strip 1.010 1.016-1.022 Urine protein assay by test strip, semi-quantitative NEGATIVE NEGATIVE Urine glucose detection by automated test strip NE GATIVE NEGATIVE Erythrocytes detection in urine sediment by light micr oscopy NEGATIVE NEGATIVE Urine ketones detection by automated test strip NE GATIVE NEGATIVE Urine nitrite detection by test strip NEGATIVE NEGATIVE Urine total bilirubin detection by test strip NEGA TIVE NEGATIVE Urine urobilinogen measurement by automated test strip (mass/volume) NORMAL NORMAL Urine leukocyte esterase detection by dipstick 1+ NEGATIVE Automated urine sediment erythrocyte cou nt by microscopy (number/high power field) NONE NRG Automated urine sediment leukocyte count by microscopy (number/high power field) [HPF] NRG Bacteria detection in urine sediment by light microsco py LARGE NRG Crystals detection in urine sediment by light microsco py NONE NRG Casts detection in urine sediment by light microscopy NONE NRG Mucus detection in urine sediment by light microscopy NEGATIVE NRG Complete urinalysis with reflex to culture CULTURE PENDING NRG Bacterial urine culture - 12/24/18 07:50 Bacterial urine culture [id number] NRG COLONY COUNT >100,000/ML NRG FTX;REPORTABLE SUSCEPTIBILITY REPORTED 12/26/18 10: 05 NRG FREE TEXT ENTRY 2 ID REPORTED 12/25/18 12:05 NRG RML Sensitivity Panel - 12/24/18 07:50 Gentamicin susceptibility test by minimum inhibitory c oncentration <= NRG Trimethoprim/sulfamethoxazole susceptibi lity test by minimum inhibitoryconcentration <= NRG Levofloxacin susceptibility test by minimum inhibitory concentration <= NRG Ampicillin susceptibility test by minimum inhibitory c oncentration > NRG Cefazolin susceptibility test by minimum inhibitory co ncentration <= NRG Ceftriaxone susceptibility test by minimum inhibitory concentration <= NRG Ciprofloxacin susceptibility test by minimum inhibitor y concentration <= NRG Meropenem susceptibility test by minimum inhibitory co ncentration <= NRG Nitrofurantoin susceptibility test by mi nimum inhibitory concentration > NRG Amoxicillin and clavulanate potassium susc RAYO <= NRG Arterial blood gas measurement - 9 07:59 Blood pCO2 31 mm[Hg] 35-45 Blood pO2 58 mm[Hg] 79-93 Arterial blood bicarbonate measurement (moles/volume) 21 mmol/L 23-27 Arterial blood base excess by calculation -2.0 mmo l/L -2.5-2.5 Arterial blood oxygen saturation measurement 90 % 94-100 * Inhaled oxygen flow rate 5L NRG Arterial blood pH measurement with patient temperature correction 7.45 7.37-7.43 Arterial blood carbon dioxide, total measurement (mole s/volume) 22.3 mmol/L 21.0-31.0 Body site RT RAD NRG Assessment of wrist artery patency prior to arterial p uncture YES-POS NRG Setting of ventilation mode NO NR G Measurement of body temperature 98.9 NRG Complete blood count (CBC) with automate d white blood cell (WBC) differential - 12/25/18 03:02 Blood leukocytes automated count (number/volume) 11.1 10*3/uL 4.3-11.0 Blood erythrocytes automated count (number/volume) 3.86 10*6/uL 4.35-5.85 Venous blood hemoglobin measurement (mass/volume) 12.4 g/dL 11.5-16.0 Blood hematocrit (volume fraction) 38 % 35-52 Automated erythrocyte mean corpuscular volume 98 [ foz_us] 80-99 Automated erythrocyte mean corpuscular h emoglobin (mass per erythrocyte) 32 pg 25-34 Automated erythrocyte mean corpuscular h emoglobin concentration measurement (mass/volume) 33 g/dL 32-36 Automated erythrocyte distribution width ratio 14. 5 % 10.0- 14.5 Automated blood platelet count (count/volume) 175 10*3/uL 130-400 Automated blood platelet mean volume measurement 10.8 [foz_us] 7.4-10.4 Automated blood neutrophils/100 leukocytes 83 % 42-75 Automated blood lymphocytes/100 leukocytes 6 % 12-44 Blood monocytes/100 leukocytes 8 % 0-12 Automated blood eosinophils/100 leukocytes 2 % 0-10 Automated blood basophils/100 leukocytes 0 % 0-10 Blood neutrophils automated count (number/volume) 9.3 10*3 1.8-7.8 Blood lymphocytes automated count (number/volume) 0.7 10*3 1.0-4.0 Blood monocytes automated count (number/volume) 0. 9 10*3 0.0-1.0 Automated eosinophil count 0.3 10*3/uL 0 .0-0.3 Automated blood basophil count (count/volume) 0.0 10*3/uL 0.0-0.1 Comprehensive metabolic panel - 12/25/18 03:02 Serum or plasma sodium measurement (moles/volume) 146 mmol/L 135-145 Serum or plasma potassium measurement (moles/volume) 3.4 mmol/L 3.6-5.0 Serum or plasma chloride measurement (moles/volume) 113 mmol/L 98-107 Carbon dioxide 20 mmol/L 21-32 Serum or plasma anion gap determination (moles/volume) 13 mmol/L 5-14 Serum or plasma urea nitrogen measurement (mass/volume ) 9 mg/dL 7-18 Serum or plasma creatinine measurement (mass/volume) 0.74 mg/dL 0.60-1.30 Serum or plasma urea nitrogen/creatinine mass ratio 12 NRG Serum or plasma creatinine measurement w ith calculation of estimated glomerular filtration rate > NRG Serum or plasma glucose measurement (mass/volume) 111 mg/dL 70-105 Serum or plasma calcium measurement (mass/volume) 8.2 mg/dL 8.5-10.1 Serum or plasma total bilirubin measurement (mass/volu me) 0.8 mg/dL 0.1-1.0 Serum or plasma alkaline phosphatase agustín surement (enzymatic activity/volume) 76 U/L 40-136 Serum or plasma aspartate aminotransfera se measurement (enzymatic activity/volume) 37 U/L 5-34 Serum or plasma alanine aminotransferase measurement (enzymatic activity/volume) 26 U/L 0-55 Serum or plasma protein measurement (mass/volume) 5.7 g/dL 6.4-8.2 Serum or plasma albumin measurement (mass/volume) 3.2 g/dL 3.2-4.5 CALCIUM CORRECTED 8.8 mg/dL 8.5-10.1 Serum or plasma phosphate measurement (m ass/volume) - 12/25/18 03:02 Serum or plasma phosphate measurement (mass/volume) 2.7 mg/dL 2.3-4.7 Magnesium - 12/25/18 03:02 Magnesium 1.8 mg/dL 1.8-2.4 Serum or plasma lithium measurement (mol es/volume) - 12/25/18 03:02 BNP level 1851.0 pg/mL <100.0 Complete blood count (CBC) with automate d white blood cell (WBC) differential - 12/26/18 04:53 Blood leukocytes automated count (number/volume) 11.9 10*3/uL 4.3-11.0 Blood erythrocytes automated count (number/volume) 3.91 10*6/uL 4.35-5.85 Venous blood hemoglobin measurement (mass/volume) 12.7 g/dL 11.5-16.0 Blood hematocrit (volume fraction) 38 % 35-52 Automated erythrocyte mean corpuscular volume 97 [ foz_us] 80-99 Automated erythrocyte mean corpuscular h emoglobin (mass per erythrocyte) 33 pg 25-34 Automated erythrocyte mean corpuscular h emoglobin concentration measurement (mass/volume) 34 g/dL 32-36 Automated erythrocyte distribution width ratio 13. 8 % 10.0- 14.5 Automated blood platelet count (count/volume) 186 10*3/uL 130-400 Automated blood platelet mean volume measurement 11.0 [foz_us] 7.4-10.4 Automated blood neutrophils/100 leukocytes 86 % 42-75 Automated blood lymphocytes/100 leukocytes 5 % 12-44 Blood monocytes/100 leukocytes 9 % 0-12 Automated blood eosinophils/100 leukocytes 0 % 0-10 Automated blood basophils/100 leukocytes 0 % 0-10 Blood neutrophils automated count (number/volume) 10.2 10*3 1.8-7.8 Blood lymphocytes automated count (number/volume) 0.6 10*3 1.0-4.0 Blood monocytes automated count (number/volume) 1. 1 10*3 0.0-1.0 Automated eosinophil count 0.0 10*3/uL 0 .0-0.3 Automated blood basophil count (count/volume) 0.0 10*3/uL 0.0-0.1 Serum or plasma phosphate measurement (m ass/volume) - 12/26/18 04:53 Serum or plasma phosphate measurement (mass/volume) 3.1 mg/dL 2.3-4.7 Thyroid Stimulating Hormone - 02/02/19 1 2:47 TSH 3.32 mIU/mL 0.32-5.00 Arterial blood gas measurement - 9 16:20 Blood pCO2 40 mm[Hg] 35-45 Blood pO2 65 mm[Hg] 79-93 Arterial blood bicarbonate measurement (moles/volume) 31 mmol/L 23-27 Arterial blood base excess by calculation 7.2 mmol /L -2.5-2.5 Arterial blood oxygen saturation measurement 94 % 94-100 * Inhaled oxygen flow rate 3 NRG Arterial blood pH measurement with patient temperature correction 7.50 7.37-7.43 Arterial blood carbon dioxide, total measurement (mole s/volume) 32.0 mmol/L 21.0-31.0 Body site L BRACHIAL NRG Assessment of wrist artery patency prior to arterial p uncture YES-POS NRG Setting of ventilation mode NO NR G Measurement of body temperature 36.8 NRG Comprehensive metabolic panel - 06/21/19 10:58 Serum or plasma sodium measurement (moles/volume) 138 mmol/L 135-145 Serum or plasma potassium measurement (moles/volume) 4.4 mmol/L 3.6-5.0 Serum or plasma chloride measurement (moles/volume) 99 mmol/L 98-107 Carbon dioxide 26 mmol/L 21-32 Serum or plasma anion gap determination (moles/volume) 13 mmol/L 5-14 Serum or plasma urea nitrogen measurement (mass/volume ) 23 mg/dL 7-18 Serum or plasma creatinine measurement (mass/volume) 1.30 mg/dL 0.60-1.30 Serum or plasma urea nitrogen/creatinine mass ratio 18 NRG Serum or plasma creatinine measurement w ith calculation of estimated glomerular filtration rate 40 NRG Serum or plasma glucose measurement (mass/volume) 116 mg/dL 70-105 Serum or plasma calcium measurement (mass/volume) 9.5 mg/dL 8.5-10.1 Serum or plasma total bilirubin measurement (mass/volu me) 1.0 mg/dL 0.1-1.0 Serum or plasma alkaline phosphatase agustín surement (enzymatic activity/volume) 94 U/L 40-136 Serum or plasma aspartate aminotransfera se measurement (enzymatic activity/volume) 25 U/L 5-34 Serum or plasma alanine aminotransferase measurement (enzymatic activity/volume) 20 U/L 0-55 Serum or plasma protein measurement (mass/volume) 7.1 g/dL 6.4-8.2 Serum or plasma albumin measurement (mass/volume) 4.2 g/dL 3.2-4.5 CALCIUM CORRECTED 9.3 mg/dL 8.5-10.1 Lipid 1996 panel - 06/21/19 10:58 Serum or plasma triglyceride measurement (mass/volume) 67 mg/dL <150 Serum or plasma cholesterol measurement (mass/volume) 152 mg/dL < 200 Serum or plasma cholesterol in HDL measurement (mass/v olume) 67 mg/dL 40-60 Cholesterol in LDL [mass/volume] in serum or plasma by direct assay 76 mg/dL 1-129 Serum or plasma cholesterol in VLDL measurement (mass/ volume) 13 mg/dL 5-40 HCV Antibody - 06/27/19 15:04 Hep C Virus Ab <0.1 s/co ratio 0.0-0.9 HCV Antibody - 06/27/19 15:04 Hep C Virus Ab <0.1 s/co ratio 0.0-0.9 Surgical Pathology - 06/27/19 16:27 Surg Path Sent to [facility] Pathology Methicillin resistant Staphylococcus aur eus (MRSA) screening culture - 07/28/19 09:35 Methicillin resistant Staphylococcus aureus (MRSA) scr eening culture NEG NRG Thyroid Stimulating Hormone - 12/30/19 1 1:22 TSH 6.46 mIU/mL 0.32-5.00 Other Culture - 01/11/20 16:39 FINAL CULTURE RESULTS Moderate Gram Positive Mixed Genesis Probable Skin Contaminant NO Pathogens Isolated No Further Workup done. Suggest recollection if cllinically indicated. MEDIA PLATED Setup at 17:07 on 01/11/2020 Thyroid Stimulating Hormone - 02/14/20 1 1:45 TSH 2.96 mIU/mL 0.32-5.00 Complete blood count (CBC) with automate d white blood cell (WBC) differential - 02/17/20 16:25 Blood leukocytes automated count (number/volume) 8.9 10*3/uL 4.3-11.0 Blood erythrocytes automated count (number/volume) 4.33 10*6/uL 4.35-5.85 Venous blood hemoglobin measurement (mass/volume) 14.2 g/dL 11.5-16.0 Blood hematocrit (volume fraction) 40 % 35-52 Automated erythrocyte mean corpuscular volume 93 [ foz_us] 80-99 Automated erythrocyte mean corpuscular h emoglobin (mass per erythrocyte) 33 pg 25-34 Automated erythrocyte mean corpuscular h emoglobin concentration measurement (mass/volume) 35 g/dL 32-36 Automated erythrocyte distribution width ratio 14. 8 % 10.0- 14.5 Automated blood platelet count (count/volume) 253 10*3/uL 130-400 Automated blood platelet mean volume measurement 10.9 [foz_us] 7.4-10.4 Automated blood neutrophils/100 leukocytes 80 % 42-75 Automated blood lymphocytes/100 leukocytes 7 % 12-44 Blood monocytes/100 leukocytes 11 % 0-12 Automated blood eosinophils/100 leukocytes 2 % 0-10 Automated blood basophils/100 leukocytes 0 % 0-10 Blood neutrophils automated count (number/volume) 7.1 10*3 1.8-7.8 Blood lymphocytes automated count (number/volume) 0.6 10*3 1.0-4.0 Blood monocytes automated count (number/volume) 1. 0 10*3 0.0-1.0 Automated eosinophil count 0.2 10*3/uL 0 .0-0.3 Automated blood basophil count (count/volume) 0.0 10*3/uL 0.0-0.1 Arterial blood gas measurement - 0 16:25 Blood pCO2 37 mm[Hg] 35-45 Blood pO2 145 mm[Hg] 79-93 Arterial blood bicarbonate measurement (moles/volume) 25 mmol/L 23-27 Arterial blood base excess by calculation 0.8 mmol /L -2.5-2.5 Arterial blood oxygen saturation measurement 99 % 94-100 * Inhaled oxygen flow rate 15L NRG Arterial blood pH measurement with patient temperature correction 7.44 7.37-7.43 Arterial blood carbon dioxide, total measurement (mole s/volume) 25.7 mmol/L 21.0-31.0 Body site RRAD NRG Assessment of wrist artery patency prior to arterial p uncture POS NRG Setting of ventilation mode NO NR G Measurement of body temperature 36.8 NRG Comprehensive metabolic panel - 02/17/20 16:25 Serum or plasma sodium measurement (moles/volume) 130 mmol/L 135-145 Serum or plasma potassium measurement (moles/volume) 4.5 mmol/L 3.6-5.0 Serum or plasma chloride measurement (moles/volume) 95 mmol/L 98-107 Carbon dioxide 22 mmol/L 21-32 Serum or plasma anion gap determination (moles/volume) 13 mmol/L 5-14 Serum or plasma urea nitrogen measurement (mass/volume ) 17 mg/dL 7-18 Serum or plasma creatinine measurement (mass/volume) 1.10 mg/dL 0.60-1.30 Serum or plasma urea nitrogen/creatinine mass ratio 15 NRG Serum or plasma creatinine measurement w ith calculation of estimated glomerular filtration rate 49 NRG Serum or plasma glucose measurement (mass/volume) 119 mg/dL 70-105 Serum or plasma calcium measurement (mass/volume) 8.9 mg/dL 8.5-10.1 Serum or plasma total bilirubin measurement (mass/volu me) 0.8 mg/dL 0.1-1.0 Serum or plasma alkaline phosphatase agustín surement (enzymatic activity/volume) 111 U/L 40-136 Serum or plasma aspartate aminotransfera se measurement (enzymatic activity/volume) 28 U/L 5-34 Serum or plasma alanine aminotransferase measurement (enzymatic activity/volume) 20 U/L 0-55 Serum or plasma protein measurement (mass/volume) 7.0 g/dL 6.4-8.2 Serum or plasma albumin measurement (mass/volume) 4.1 g/dL 3.2-4.5 CALCIUM CORRECTED 8.8 mg/dL 8.5-10.1 Blood lactic acid measurement (moles/vol ume) - 02/17/20 16:25 Blood lactic acid measurement (moles/volume) 1.98 mmol/L 0.50-2.00 PT panel in platelet poor plasma by coag ulation assay - 02/17/20 16:25 Prothrombin time (PT) in platelet poor plasma by coagu lation assay 29.9 s 12.2-14.7 INR in platelet poor plasma or blood by coagulation as say 2.8 0.8-1.4 Activated partial thromboplastin time (a PTT) in platelet poor plasma bycoagulation assay - 02/17/20 16:25 Activated partial thromboplastin time (a PTT) in platelet poor plasma bycoagulation assay 40 s 24-35 Fibrin D-dimer FEU measurement in platel et poor plasma (mass/volume) - 02/17/20 16:25 Fibrin D-dimer FEU measurement in platelet poor plasma (mass/volume) 0.85 ug/mL 0.00-0.49 PROCALCITONIN (PCT) - 02/17/20 16:25 PROCALCITONIN (PCT) 0.01 ng/mL <0.10 Manual absolute plasma cell count - 01/31 02/19 16:25 Blood monocytes/100 leukocytes 3 % NRG Manual blood segmented neutrophils/100 leukocytes 86 % NRG Manual blood lymphocytes/100 leukocytes 10 % NRG Manual eosinophils/100 leukocytes in nose 1 % NRG Blood erythrocyte morphology finding identification NORMAL NRG Serum or plasma C reactive protein measu rement (mass/volume) - 02/17/20 16:25 Serum or plasma C reactive protein measurement (mass/v olume) 0.83 mg/dL 0.00-0.50 Encounters ACCT No. Visit Date/Time Discharge Status Pt. Type Provider Facility Loc./Unit Complaint [id number] 06/29/2019 11:10:00 Document Registration [id number] 02/14/2020 11:38:00 [id number] 16:38[facility]00 [facility]11[id number] 15:03:00 01/11/2020 [id number] 12/30/2019 11:10:00 12/30/2019 [id number] 12/12/2019 15:22:00 12/12/2019 [id number] 12/12/2019 12:55:00 12/12/2019 [id number]:25[id number] 11:18:00 06/27/2019 23:59: 00 [facility] Anju Stanford [id number] 06/08/2019 14:01:00 06/08/2019 23:59: 00 DIS Outpatient Anju Stanford [id number] 06/07/2019 09:00:00 06/07/2019 23:59: 00 DIS Outpatient Anju Stanford [id number] 02/02/2019 12:37:00 02/02/2019 23:59: 00 DIS Outpatient Anju Stanford [id number] 06/07/2018 14:39:00 06/07/2018 23:59: 00 DIS Outpatient Anju Stanford [id number] 06/03/2017 13:50:00 06/03/2017 23:59: 00 DIS Outpatient Anju Stanford [id number] 01/21/2017 15:03:00 01/21/2017 23:59: 00 DIS Outpatient Anju Stanford [id number] 07/18/2016 14:41:00 07/18/2016 23:59: 00 DIS Outpatient Anju Stanford [id number] 06/03/2017 13:04:00 Document Registration [id number] 01/24/2020 14:14:00 23:59:59 CLS Outpatient KADEN SCHAFFER [facility] ONC [id number] 10/11/2019 12:34:00 23:59:59 CLS Outpatient LOUISE SPARROW MD [facility] CARD HYPERLIPIDEMIA,HTN,GRESHAM TIS STENOSIS [id number] 08/23/2019 10:54:00 020 23:59:59 CLS Preadmit LOUISE SPARROW MD [facility] CARD ATRIAL FIB W/ RVR,HYPERLIPIDEMIA,HTN,CAROTID STENO [id number] 07/28/2019 09:09:00 13:25:00 DIS Outpatient MANZANARES HERLINDA NEWMAN [facility] SDC PIGMENTED EPITHELIAL ME LANOCYTOMA [id number] 07/26/2019 12:26:00 13:53:00 DIS Outpatient MANZANARES HERLINDA NEWMAN [facility] PREOP PIGMENTED EPITHELIAL ME LANOCYTOMA [id number] 06/21/2019 10:42:00 23:59:59 CLS Outpatient ANGEL MORGAN [facility] LAB HTN, HYPERL IPIDEMIA [id number] 04/11/2019 15:34:00 23:59:59 CLS Outpatient JOSÉ NEWMAN AMBROSIO M [facility] RAD DYSPNEA [id number] 12/30/2018 15:21:00 00:01:00 DIS Outpatient KADEN SCHAFFER [facility] ONC [id number] 02/15/2019 12:11:00 23:59:59 CLS Outpatient RAJAT GRIGSBY CLASSIFICATION INSPECTOR [facility] RAD DYSPNEA [id number] 01/13/2019 07:37:00 23:59:59 CLS Preadmit RAJAT GRIGSBY CLASSIFICATION INSPECTOR [facility] RT COPD W/ EMPHYSE MA [id number] 12/24/2018 10:15:00 11:58:00 DIS Inpatient GEORGETTE SHIELDS MD [facility] 4TH PNA;SEPTIC SHOCK [id number] 07/01/2018 12:56:00 00:01:00 DIS Outpatient KADEN SCHAFFER [facility] ONC [id number] 06/17/2018 13:36:00 23:59:59 CLS Outpatient ANGEL MORGAN [facility] CARD CAROTID JABARI NOSIS [id number] 06/01/2018 11:43:00 23:59:59 CLS Outpatient LOUISE SPARROW MD [facility] LAB I10 [id number] 03/16/2018 13:39:00 00:01:00 DIS Outpatient KADEN SCHAFFER [facility] ONC [id number] 01/05/2018 11:43:00 23:59:59 CLS Outpatient LOUISE SPARROW MD [facility] LAB I48.0,I65.23 [id number] 12/15/2017 13:48:00 018 00:01:00 DIS Outpatient SARBJIT KADEN Avila [facility] ONC [id number] 11/26/2017 13:19:00 018 23:59:59 CLS Outpatient RAJAT GRIGSBY E CLASSIFICATION INSPECTOR [facility] LAB J43.9 [id number] 06/23/2017 13:10:00 018 00:01:00 DIS Outpatient SARBJIT KADEN Mendiola [facility] ONC [id number] 08/06/2017 13:32:00 018 23:59:59 CLS Outpatient RAJAT GRIGSBY CLASSIFICATION INSPECTOR [facility] LAB J43.9 [id number] 05/26/2017 12:19:00 017 23:59:59 CLS Outpatient ANDREWS SZYMANSKI, LOUISE Snyder [facility] CARD HTN [id number] 05/13/2017 10:39:00 017 23:59:59 CLS Outpatient ABDOULAYE SZYMANSKI, ANJU Melara [facility] LAB I 48.0 I10 E78.2 I 65.2 3 I50.32 [id number] 05/05/2017 13:42:00 017 23:59:59 CLS Outpatient RAJAT GRIGSBY CLASSIFICATION INSPECTOR [facility] LAB J43.9,I50.32,R0 9.02,I27.2 [id number] 04/22/2017 11:10:00 017 00:01:00 DIS Outpatient SARBJIT KADEN Avila [facility] ONC [id number] 02/05/2017 13:53:00 017 23:59:59 CLS Outpatient RAJAT GRIGSBY CLASSIFICATION INSPECTOR [facility] LAB I10,E78.2 [id number] 01/14/2017 16:30:00 017 12:00:00 DIS Inpatient SMOOTH DO, ANAT [facility] ICU AFIB W RVR,ANEMIA,SUSPE CTED GI BLEED [id number] 12/26/2016 07:17:00 017 11:40:00 DIS Outpatient TUNG SAVAGE MD [facility] NOSE BLEED R04.0 [id number] 12/23/2016 09:44:00 017 23:59:59 CLS Outpatient TUNG SAVAGE MD [facility] PREOP EPISTAXIS [id number] 12/16/2016 10:58:00 017 23:59:59 CLS Outpatient ANGEL MORGAN [facility] LAB HTN,HYPERLI PIDEMIA [id number] 10/28/2016 13:36:00 017 23:59:59 CLS Outpatient RAJAT GRIGSBY APRN [facility] LAB COPD W EMPHYSEM A [id number] 10/07/2016 09:38:00 017 23:59:59 CLS Outpatient AMBROSIO KUMAR DO [facility] LAB DYSPNEA,COPD [id number] 09/05/2016 09:30:00 017 23:59:59 CLS Outpatient RAJAT GRIGSBY CLASSIFICATION INSPECTOR [facility] LAB COPD,DYSPNEA [id number] 08/12/2016 11:28:00 017 23:59:59 CLS Outpatient RAJAT GRIGSBY CLASSIFICATION INSPECTOR [facility] LAB COPD W/EMPHYSEI MA [id number] 08/11/2016 15:52:00 017 23:59:59 CLS Outpatient RAJAT GRIGSBY CLASSIFICATION INSPECTOR [facility] RAD COPD,DYSPNEA [id number] 07/08/2016 00:10:00 016 23:59:59 CLS Preadmit RAJAT GRIGSBY CLASSIFICATION INSPECTOR [facility] PULM PULM HTN [id number] 04/08/2016 14:32:00 016 00:01:00 DIS Outpatient RAJAT GRIGSBY CLASSIFICATION INSPECTOR [facility] PULM PULM HTN [id number] 04/03/2016 14:30:00 00:01:00 DIS Outpatient RAJAT GRIGSBY APRN [facility] PULM PULM HTN [id number] 03/28/2016 13:29:00 23:59:59 CLS Outpatient ANGEL MORGAN [facility] CARD CAROTID JABARI NOSIS, DIASTOLIC DYSFUNCTION, HTN, HYPE [id number] 02/29/2016 13:50:00 23:59:59 CLS Outpatient AMBROSIO KUMAR DO [facility] RT COPD W/EMPHYSEMA,DYSPNE A,PULM HTN DUE TO HYPOXEMIA [id number] 02/05/2016 03:29:00 06:23:00 DIS Emergency JOSE SZYMANSKI, SKYE Moncada [facility] ER ON BLOOD THINNE RS,BLEEDING FROM MOUTH [id number] 01/07/2016 10:15:00 23:59:59 CLS Preadmit RAJAT GRIGSBY APRN [facility] PULM PULMINARY HTN,COPD,HYPOXEMIA REQUIRING OXYGEN [id number] 01/03/2016 14:30:00 00:01:00 DIS Outpatient RAJAT GRIGSBY APRN [facility] PULM PULMINARY HTN,COPD,HYPOXEMIA REQUIRING OXYGEN [id number] 12/07/2015 11:17:00 15:05:00 DIS Outpatient JANETTE SZYMANSKI, TUNG Hernandez [facility] SDC RIGHT POSTERIOR NOSE BL EED [id number] 11/24/2015 05:40:00 14:36:00 DIS Inpatient CORNELIUS SZYMANSKI, GEORGETTE Schafer [facility] 4TH NOSEBLEED;EXCESSIVE ANTICOAGULATION;ANEMIA [id number] 10/08/2015 09:14:00 23:59:59 CLS Outpatient LOUISE SPARROW MD [facility] LAB HTN,PULMONARY HTN DUE T O HYPOXIA [id number] 09/10/2015 08:33:00 Mihai 23:59:59 CLS Outpatient LOUISE SPARROW MD [facility] RAD CAROTID STENOSIS [id number] 08/28/2015 13:54:00 016 14:28:00 DIS Outpatient AMBROSIO KUMAR DO [facility] SLEEP SNORING, ARRHYTHMIAS, E DS [id number] 08/08/2015 07:30:00 016 15:40:00 DIS Outpatient LOUISE SPARROW MD [facility] CATH ABNORMAL STRESS TEST,SH ORNTESS OF BREATH,HTP,HTN [id number] 07/25/2015 10:48:00 23:59:59 CLS Outpatient LOUISE SPARROW MD [facility] CARD A-FIB W/ RVR,DYSPNEA,HTN,HYPERLIPIDEMIA [id number] 06/27/2015 20:30:00 13:20:00 DIS Inpatient ELANA OSCAR DO, [facility] 4TH SOA [id number] 04/28/2015 15:34:00 13:27:00 DIS Inpatient NIKOS SZYMANSKI, ANGELA Clark [facility] CSD DYSPNEA,LOW OXYGEN,ACUT E OR CHRONIC CHF,PNEUMONIA [id number] 04/25/2015 20:45:00 015 13:25:00 DIS Inpatient ANAT REBOLLAR DO, [facility] CSD ACUTE HEART FAILURE [id number] 01/24/2015 08:34:00 015 13:00:00 DIS Outpatient JIM MEAD MD [facility] SDC NAUSEA [id number] 01/18/2015 06:09:00 23:59:59 CLS Outpatient JIM MEAD MD [facility] PREOP NAUSEA [id number] 01/08/2015 09:34:00 23:59:59 CLS Outpatient ANJU STANFORD MD [facility] CARD EPIGASTRIC PAIN [id number] 12/28/2014 10:22:00 23:59:59 CLS Outpatient AMBROSIO KUMAR DO [facility] RAD COPD,DYSPNEA,PE [id number] 11/13/2014 11:25:00 015 07:15:00 DIS Inpatient LOUISE SPARROW MD [facility] CSD DIGOXIN TOXICITY HYPONA TREMIA CHF W/EFFUSIONS [id number] 11/08/2014 07:44:00 015 23:59:59 CLS Outpatient AMBROSIO KUMAR DO [facility] RT DYSPNEA [id number] 08/30/2014 07:09:00 015 09:50:00 DIS Outpatient JIM MEAD MD [facility] SDC SCREENING [id number] 08/28/2014 10:53:00 015 23:59:59 CLS Outpatient LOUISE SPARROW MD [facility] CARD JOE,HTN,HLP [id number] 08/23/2014 05:51:00 015 23:59:59 CLS Outpatient JIM MEAD MD [facility] PREOP SCREENING [id number] 02/17/2020 17:50:[address] Inpatient KELLIE BROWER MD [facility] ICU COPD EXACERBATION,ACUTE RESP FAILURE W/ HYPOXIA,CO [id number] 09/12/2012 11:25:00 Document Registration [id number] 08/30/2012 08:38:00 Document Registration [id number] 06/29/2012 10:34:00 Document Registration [id number] 06/27/2019 15:01:00 Document Registration
[2020-02-17] MEDS: NS IV 1000 ML 1,000 ML IV SCH (21:43)
--- OUTSIDE RECORDS SUMMARY | 2020-02-17 22:08 | XMS REPORT | Continuity of Care Document ---
Demographics Preferred Language Unknown Marital Status Unknown Shinto Affiliation Unknown Race Unknown Ethnic Group Unknown Author Organization Unknown Address Unknown Phone Unavailable Allergies Active Description Code Type Severity Reaction Onset Reported/Identified Relationship to Patient Clinical Status Yes VALTREX UNKNOWN UNKNOWN Yes valacyclovir HCl [id number] Drug Allergy Unknown RASH 08/30/2014 Medications There [...] SPARROW MD Ot 427. 31 09/12/2014 LOUISE SPARROW MD Ot 429. 9 09/12/2014 LOUISE SPARROW [...] MD Ot V12. 29 PERSONAL HX OF [facility] ENDOCRINE, METABOLIC 11/14/2014 ANDREWS SZYMANSKI, LOUISE Snyder [...] NIKOS SZYMANSKI, ANGELA F Ot 493.22 05/02/2015 NIKSO SZYMANSKI, ANGELA F Ot 799.02 05/02/2015 NIKOS [...] .2 05/03/2015 NIKOS SZYMANSKI, ANGELA F Ot A41 .9 SEPSIS, UNSPECIFIED ORGANISM 05/03/2015 NIKOS SZYMANSKI, ANGELA F Ot E03 .9 HYPOTHYROIDISM, UNSPECIFIED 05/03/2015 [...] HYPOXEMIA 05/03/2015 ANGELA KNOTT MD, Ot Z79.01 DESIZING PAD OPERATOR (CURRENT) USE OF ANTICOAGULANT 05/03/2015 ANGELA KNOTT MD Ot Z87.891 PERSONAL HISTORY OF NICOTINE DEPENDENCE 05/03/2015 ANGELA KNOTT MD, Ot Z99.81 DEPENDENCE ON SUPPLEMENTAL OXYGEN 05/28/2015 Ot 427.31 05/28/2015 JIM MEAD MD Ot V72.84 05/28/2015 LOUISE SPRAROW MD Ot 272. 4 05/28/2015 LOUISE SPARROW [...] ELANA OSCAR DO Ot E83.41 HYPERMAGNESEMIA 07/02/2015 ELANA OSCAR DO Ot E87.1 HYPO-OSMOLALITY AND HYPONATREMIA 07/02/2015 ELANA OSCAR DO Ot E87.6 HYPOKALEMIA 07/02/2015 ELANA OSCAR DO Ot F24 SHARED PSYCHOTIC DISORDER 07/02/2015 ABDI OSCAR DOA K Ot I10 ESSENTIAL (PRIMARY) HYPERTENSION 07/02/2015 ABDI SOCAR DOA K Ot I27.2 OTHER SECONDARY PULMONARY [...] LOUISE SPARROW MD Ot R06. 02 08/08/2015 LUOISE SPARROW MD Ot E78. 5 HYPERLIPIDEMIA, UNSPECIFIED 08/08/2015 LOUISE SPARROW MD Ot I10 ESSENTIAL (PRIMARY) HYPERTENSION 08/08/2015 LOUISE SPARROW MD Ot I25. 10 ATHSCL HEART DISEASE OF [place] CORONARY 08/08/2015 LOUISE SPARROW MD Ot I27. [...] 08/08/2015 LOUISE SPARROW MD Ot Z79.899 OTHER DESIZING PAD OPERATOR (CURRENT) DRUG THERAPY 08/08/2015 LOUISE SPARROW MD Ot Z87.891 PERSONAL HISTORY OF NICOTINE DEPENDENCE 08/28/2015 AMBROSIO KUMAR DO Ot G47. 36 SLEEP RELATED HYPOVENTILATION IN CONDITI 08/28/2015 AMBROSIO KUMAR DO Ot R06. 83 SNORING 09/20/2015 LOUISE SPARROW MD Ot I65. 23 10/09/2015 RAJAT GRIGSBY APRN Ot I27.2 10/09/2015 RAJAT GRIGSBY NOISE ABATEMENT ENGINEER Ot J43.9 10/09/2015 RAJAT GRIGSBY APRN Ot R09.02 10/23/2015 LOUISE SPARROW MD Ot I10 10/23/2015 LOUISE SPARROW MD Ot I27. 2 11/13/2015 RAJAT GRIGSBY NOISE ABATEMENT ENGINEER Ot I27.2 11/13/2015 RAJAT GRIGSBY APRN Ot J43.9 11/13/2015 RJAAT GRIGSBY APRN Ot R09.02 11/24/2015 Ot 427.31 [...] ALVE 02/05/2016 SKYE GARCIA MD Ot Z79.01 DESIZING PAD OPERATOR (CURRENT) USE OF ANTICOAGULANT 02/05/2016 SKYE GARCIA MD Ot Z79.02 DESIZING PAD OPERATOR (CURRENT) USE OF ANTITHROMBOTI 02/05/2016 SKYE GARCIA MD Ot Z95.5 PRESENCE OF CORONARY ANGIOPLASTY IMPLANT 02/07/2016 SKYE GARCIA MD Ot I48.2 CHRONIC ATRIAL FIBRILLATION 02/07/2016 SKYE GARCIA MD Ot K06.8 OTH DISRD OF [place] AND EDENTULOUS ALVE 02/07/2016 SKYE GARCIA MD Ot Z79.01 DESIZING PAD OPERATOR (CURRENT) USE OF ANTICOAGULANT 02/07/2016 SKYE GARCIA MD Ot Z79.02 USP (CURRENT) USE OF ANTITHROMBOTI 02/19/2016 RAJAT GRIGSBY [...] OTHER SECONDARY PULMONARY HYPERTENSION 03/14/2016 RAJAT GRIGSBY NOISE ABATEMENT ENGINEER Ot J43.9 EMPHYSEMA, UNSPECIFIED 03/14/2016 RAJAT GRIGSBY [...] OTHER SECONDARY PULMONARY HYPERTENSION 03/28/2016 RAJAT GRIGSBY NOISE ABATEMENT ENGINEER Ot J43.9 EMPHYSEMA, UNSPECIFIED 03/28/2016 RAJAT GRIGSBY APRN Ot R09.02 HYPOXEMIA 03/28/2016 RAJAT GRIGSBY NOISE ABATEMENT ENGINEER Ot I27.2 OTHER SECONDARY PULMONARY HYPERTENSION 03/28/2016 RAJAT GRIGSBY NOISE ABATEMENT ENGINEER Ot J43.9 EMPHYSEMA, UNSPECIFIED 03/28/2016 RAJAT GRIGSBY [...] STENOSIS OF BILATERAL [place] 04/07/2016 RAJAT GRIGSBY NOISE ABATEMENT ENGINEER Ot I27.2 OTHER SECONDARY PULMONARY HYPERTENSION 04/07/2016 RAJAT GRIGSBY NOISE ABATEMENT ENGINEER Ot J43.9 EMPHYSEMA, UNSPECIFIED 04/07/2016 RAJAT GRIGSBY NOISE ABATEMENT ENGINEER Ot R09.02 HYPOXEMIA 04/08/2016 RAJAT GRIGSBY NOISE ABATEMENT ENGINEER Ot I27.2 OTHER SECONDARY PULMONARY HYPERTENSION 04/08/2016 RAJAT GRIGSBY NOISE ABATEMENT ENGINEER Ot J43.9 EMPHYSEMA, UNSPECIFIED 04/08/2016 RAJAT GRIGSBY NOISE ABATEMENT ENGINEER Ot R09.02 HYPOXEMIA 04/09/2016 RAJAT GRIGSBY NOISE ABATEMENT ENGINEER Ot I27.2 OTHER SECONDARY PULMONARY HYPERTENSION 04/09/2016 RAJAT GRIGSBY NOISE ABATEMENT ENGINEER Ot J43.9 EMPHYSEMA, UNSPECIFIED 04/09/2016 RAJAT GRIGSBY NOISE ABATEMENT ENGINEER Ot R09.02 HYPOXEMIA 04/09/2016 JELANI KONG, KARON K Ot E78.2 MIXED HYPERLIPIDEMIA 04/09/2016 JELANI KONG, KARON K Ot I10 ESSENTIAL (PRIMARY) HYPERTENSION 04/09/2016 JELANI KONG, KARON K Ot I50.32 CHRONIC DIASTOLIC (CONGESTIVE) HEART ROB 04/09/2016 JELANI KONG, KARON K Ot I65.23 OCCLUSION AND STENOSIS OF BILATERAL [place] 04/14/2016 RAJAT GRIGSBY NOISE ABATEMENT ENGINEER Ot I27.2 OTHER SECONDARY PULMONARY HYPERTENSION 04/14/2016 RAJAT GRIGSBY NOISE ABATEMENT ENGINEER Ot J43.9 EMPHYSEMA, UNSPECIFIED 04/14/2016 RAJAT GRIGSBY NOISE ABATEMENT ENGINEER Ot R09.02 HYPOXEMIA 05/14/2016 RAJAT GRIGSBY NOISE ABATEMENT ENGINEER Ot I27.2 OTHER SECONDARY PULMONARY HYPERTENSION 05/14/2016 SEBRAJAT CORBETT NOISE ABATEMENT ENGINEER Ot J43.9 EMPHYSEMA, UNSPECIFIED 05/14/2016 SEBRAJAT CORBETT NOISE ABATEMENT ENGINEER Ot R09.02 HYPOXEMIA 07/07/2016 SEBRAJAT CORBETT NOISE ABATEMENT ENGINEER Ot I27.2 OTHER SECONDARY PULMONARY HYPERTENSION 07/07/2016 SEBRAJAT CORBETT NOISE ABATEMENT ENGINEER Ot J43.9 EMPHYSEMA, UNSPECIFIED 07/07/2016 RAJAT GRIGSBY NOISE ABATEMENT ENGINEER Ot R09.02 HYPOXEMIA 07/08/2016 RAJAT GRIGSBY NOISE ABATEMENT ENGINEER Ot I27.2 OTHER SECONDARY PULMONARY HYPERTENSION 07/08/2016 RAJAT GRIGSBY NOISE ABATEMENT ENGINEER Ot J43.9 EMPHYSEMA, UNSPECIFIED 07/08/2016 RAJAT GRIGSBY APRN Ot R09.02 HYPOXEMIA 07/16/2016 SKYE GARCIA MD Ot D68.32 HEMORRHAGIC DISORD D/T EXTRINSIC CIRCULA 07/16/2016 SKYE GARCIA MD Ot I10 ESSENTIAL (PRIMARY) HYPERTENSION 07/16/2016 SKYE GARCIA MD Ot I48.2 CHRONIC ATRIAL FIBRILLATION 07/16/2016 SKYE GARCIA MD, Ot J44.9 CHRONIC OBSTRUCTIVE PULMONARY DISEASE, U 07/16/2016 SKYE GARCIA MD Ot Z79.01 USP (CURRENT) USE OF ANTICOAGULANT 07/16/2016 SKYE GARCIA MD Ot Z79.02 USP (CURRENT) USE OF ANTITHROMBOTI 07/16/2016 SKYE GARCIA [...] 8 CHR PULMON HEART DIS NEC 08/11/2016 LOUISE SPARROW MD Ot 424. 0 MITRAL [...] STENOSIS OF BILATERAL [place] 08/11/2016 RAJAT GRIGSBY NOISE ABATEMENT ENGINEER Ot I27.2 OTHER SECONDARY PULMONARY HYPERTENSION 08/11/2016 RAJAT GRIGSBY NOISE ABATEMENT ENGINEER Ot J43.9 EMPHYSEMA, UNSPECIFIED 08/11/2016 RAJAT GRIGSBY APRN Ot R09.02 HYPOXEMIA 08/11/2016 RAJAT GRIGSBY NOISE ABATEMENT ENGINEER Ot R06.02 SHORTNESS OF BREATH 08/12/2016 RAJAT GRIGSBY NOISE ABATEMENT ENGINEER Ot R06.02 SHORTNESS OF BREATH 08/13/2016 RAJAT GRIGSBY NOISE ABATEMENT ENGINEER Ot J43.9 EMPHYSEMA, UNSPECIFIED 08/13/2016 RAJAT GRIGSBY NOISE ABATEMENT ENGINEER Ot I27.2 OTHER SECONDARY PULMONARY HYPERTENSION 08/13/2016 RAJAT GRIGSBY NOISE ABATEMENT ENGINEER Ot J43.9 EMPHYSEMA, UNSPECIFIED 08/13/2016 RAJAT GRIGSBY NOISE ABATEMENT ENGINEER Ot R06.02 SHORTNESS OF BREATH 08/13/2016 RAJAT GRIGBSY NOISE ABATEMENT ENGINEER Ot R09.02 HYPOXEMIA 08/14/2016 RAJAT GRIGSBY NOISE ABATEMENT ENGINEER Ot J43.9 EMPHYSEMA, UNSPECIFIED 08/29/2016 RAJAT GRIGSBY NOISE ABATEMENT ENGINEER Ot I27.2 OTHER SECONDARY PULMONARY HYPERTENSION 08/29/2016 RAJAT GRIGSBY NOISE ABATEMENT ENGINEER Ot J43.9 EMPHYSEMA, UNSPECIFIED 08/29/2016 RAJAT GRIGSBY NOISE ABATEMENT ENGINEER Ot R06.02 SHORTNESS OF BREATH 08/29/2016 RAJAT GRIGSBY NOISE ABATEMENT ENGINEER Ot R09.02 HYPOXEMIA 08/29/2016 RAJAT GRIGSBY NOISE ABATEMENT ENGINEER Ot J43.9 EMPHYSEMA, UNSPECIFIED 09/16/2016 RAJAT GRIGSBY NOISE ABATEMENT ENGINEER Ot J43.9 EMPHYSEMA, UNSPECIFIED 09/16/2016 RAJAT GRIGSBY NOISE ABATEMENT ENGINEER Ot R06.02 SHORTNESS OF BREATH 10/07/2016 Ot [...] OCCLUSION W O CEREBRAL IN 10/07/2016 AMBROSIO KUMRA DO Ot 786. 09 RESPIRATORY ABNORM NEC [...] OTHER SECONDARY PULMONARY HYPERTENSION 10/07/2016 RAJAT GRIGSBY NOISE ABATEMENT ENGINEER Ot J43.9 EMPHYSEMA, UNSPECIFIED 10/07/2016 RAJAT GRIGSBY NOISE ABATEMENT ENGINEER Ot R09.02 HYPOXEMIA 10/07/2016 RAJAT GRIGSBY NOISE ABATEMENT ENGINEER Ot I27.2 OTHER SECONDARY PULMONARY HYPERTENSION 10/07/2016 RAJAT GRIGSBY NOISE ABATEMENT ENGINEER Ot J43.9 EMPHYSEMA, UNSPECIFIED 10/07/2016 RAJAT GRIGSBY NOISE ABATEMENT ENGINEER Ot R06.02 SHORTNESS OF BREATH 10/07/2016 RAJAT GRIGSBY NOISE ABATEMENT ENGINEER Ot R09.02 HYPOXEMIA 10/07/2016 RAJAT GRIGSBY NOISE ABATEMENT ENGINEER Ot J43.9 EMPHYSEMA, UNSPECIFIED 10/07/2016 RAJAT GRIGSBY NOISE ABATEMENT ENGINEER Ot J43.9 EMPHYSEMA, UNSPECIFIED 10/07/2016 RAJAT GRIGSBY NOISE ABATEMENT ENGINEER Ot R06.02 SHORTNESS OF BREATH 10/08/2016 AMBROSIO KUMAR DO Ot J43. 9 EMPHYSEMA, UNSPECIFIED 10/08/2016 AMBROSIO KUMAR DO Ot R06. 02 SHORTNESS OF BREATH 10/17/2016 AMBROSIO UKMAR DO Ot J43. 9 EMPHYSEMA, UNSPECIFIED 10/17/2016 AMBROSIO KUMAR DO Ot R06. 02 SHORTNESS OF BREATH 10/29/2016 RAJAT GRIGSBY NOISE ABATEMENT ENGINEER Ot J43.9 EMPHYSEMA, UNSPECIFIED 11/19/2016 RAJAT GRIGSBY [...] EPISTAXIS 12/26/2016 TUNG SAVAGE MD Ot Z79.01 USP (CURRENT) USE OF ANTICOAGULANT 12/31/2016 TUNG SAVAGE MD Ot D64 .9 ANEMIA, UNSPECIFIED 12/31/2016 TUNG SAVAGE MD Ot I11 .0 HYPERTENSIVE HEART DISEASE WITH HEART FA 12/31/2016 TUNG SAVAGE MD Ot I27 .2 OTHER SECONDARY PULMONARY HYPERTENSION 12/31/2016 TUNG SAVAGE MD Ot I48.91 UNSPECIFIED ATRIAL FIBRILLATION 12/31/2016 TUNG SAAVGE MD Ot I50 .9 HEART FAILURE, UNSPECIFIED 12/31/2016 TUNG SAVAGE MD Ot 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 12/31/2016 TUNG SAVAGE MD, Ot J44 .9 CHRONIC OBSTRUCTIVE PULMONARY DISEASE, U 12/31/2016 TUNG SAVAGE MD Ot R04 .0 EPISTAXIS 12/31/2016 TUNG SAVAGE MD, Ot Z79.01 DESIZING PAD OPERATOR (CURRENT) USE OF ANTICOAGULANT 01/02/2017 TUNG SAVAGE [...] EPISTAXIS 01/02/2017 TUNG SAVAGE MD, Ot Z79.01 USP (CURRENT) USE OF ANTICOAGULANT 01/16/2017 SMOOTH NEWMAN ANAT Ot D64.9 ANEMIA, UNSPECIFIED 01/16/2017 SMOOTH NEWMAN ANAT Ot E03.9 HYPOTHYROIDISM, UNSPECIFIED 01/16/2017 SMOOTH NEWMAN ANAT Ot E78.00 PURE HYPERCHOLESTEROLEMIA, UNSPECIFIED 01/16/2017 SMOOTH NEWMAN ANAT Ot E78.5 HYPERLIPIDEMIA, UNSPECIFIED 01/16/2017 SMOOTH NEWMAN ANAT Ot I11.0 HYPERTENSIVE HEART DISEASE WITH HEART FA 01/16/2017 SMOOTH NEWMAN ANAT Ot I25.10 ATHSCL HEART DISEASE OF [place] CORONARY 01/16/2017 SMOOTH NEWMAN ANAT Ot I27.2 [...] UNSPECIFIED 01/16/2017 ANAT REBOLLAR DO Ot Z79.01 USP (CURRENT) USE OF ANTICOAGULANT 01/16/2017 ANAT REBOLLAR DO Ot Z79.02 DESIZING PAD OPERATOR (CURRENT) USE OF ANTITHROMBOTI 01/16/2017 ANAT REBOLLAR [...] MD Ot V72.84 EXAM PRE-OPERATIVE NOS 03/17/2017 OLUISE SPARROW MD Ot 272. 4 HYPERLIPIDEMIA NEC/NOS 03/17/2017 LOUISE SPARRWO MD Ot 397. 0 TRICUSPID VALVE DISEASE [...] OTHER SECONDARY PULMONARY HYPERTENSION 03/17/2017 RAJAT GRIGSBY NOISE ABATEMENT ENGINEER Ot I27.2 OTHER SECONDARY PULMONARY HYPERTENSION 03/17/2017 [...] STENOSIS OF BILATERAL [place] 03/17/2017 RAJAT GRIGSBY NOISE ABATEMENT ENGINEER Ot I27.2 OTHER SECONDARY PULMONARY HYPERTENSION 03/17/2017 RAJAT GRIGSBY NOISE ABATEMENT ENGINEER Ot J43.9 EMPHYSEMA, UNSPECIFIED 03/17/2017 RAJAT GRIGSBY NOISE ABATEMENT ENGINEER Ot R09.02 HYPOXEMIA 03/17/2017 RAJAT GRIGSBY NOISE ABATEMENT ENGINEER Ot I27.2 OTHER SECONDARY PULMONARY HYPERTENSION 03/17/2017 RAJAT GRIGSBY NOISE ABATEMENT ENGINEER Ot J43.9 EMPHYSEMA, UNSPECIFIED 03/17/2017 RAJAT GRIGSBY NOISE ABATEMENT ENGINEER Ot R06.02 SHORTNESS OF BREATH 03/17/2017 RAJAT GRIGSBY APRN Ot R09.02 HYPOXEMIA 03/17/2017 RAJAT GRIGSBY NOISE ABATEMENT ENGINEER Ot J43.9 EMPHYSEMA, UNSPECIFIED 03/17/2017 RAJAT GRIGSBY [...] SCHAFFER Ot I25.10 ATHSCL HEART DISEASE OF [place] CORONARY 03/18/2017 KADEN SCHAFFER Ot I48.2 CHRONIC ATRIAL FIBRILLATION 03/18/2017 KADEN SCHAFFER Ot I50.30 UNSPECIFIED DIASTOLIC (CONGESTIVE) HEART 03/18/2017 KADEN SCHAFFER Ot 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 03/18/2017 KADEN SCHAFFER Ot I73.9 PERIPHERAL VASCULAR DISEASE, UNSPECIFIED 03/18/2017 KADEN SCHAFFER Ot J44.9 CHRONIC OBSTRUCTIVE PULMONARY DISEASE, U 03/18/2017 KADEN SCHAFFER Ot K21.9 GASTRO-ESOPHAGEAL REFLUX DISEASE WITHOUT 03/18/2017 KADEN SCHAFFER Ot Z79.01 USP (CURRENT) USE OF ANTICOAGULANT 03/18/2017 KADEN SCHAFFER Ot Z79.02 USP (CURRENT) USE OF ANTITHROMBOTI 03/18/2017 KADEN SCHAFFER [...] SCHAFFER Ot I25.10 ATHSCL HEART DISEASE OF [place] CORONARY 04/13/2017 KADEN SCHAFFER Ot I48.2 CHRONIC ATRIAL FIBRILLATION 04/13/2017 KADEN SCHAFFER Ot I50.30 UNSPECIFIED DIASTOLIC (CONGESTIVE) HEART 04/13/2017 KADEN SCHAFFER Ot 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 04/13/2017 KADEN SCHAFFRE Ot I73.9 PERIPHERAL VASCULAR DISEASE, UNSPECIFIED 04/13/2017 KADEN SCHAFFER Ot J44.9 CHRONIC OBSTRUCTIVE PULMONARY DISEASE, U 04/13/2017 KADEN SCHAFFER Ot K21.9 GASTRO-ESOPHAGEAL REFLUX DISEASE WITHOUT 04/13/2017 KADEN SCHAFFER Ot Z79.01 DESIZING PAD OPERATOR (CURRENT) USE OF ANTICOAGULANT 04/13/2017 KADEN SCHAFFER Ot Z79.02 DESIZING PAD OPERATOR (CURRENT) USE OF ANTITHROMBOTI 04/13/2017 KADEN SCHAFFER [...] SCHAFFER Ot I25.10 ATHSCL HEART DISEASE OF [place] CORONARY 05/02/2017 KADEN SCHAFFER Ot I48.2 CHRONIC ATRIAL FIBRILLATION 05/02/2017 KADEN SCHAFFER Ot I50.30 UNSPECIFIED DIASTOLIC (CONGESTIVE) HEART 05/02/2017 KADEN SCHAFFER Ot 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 05/02/2017 KADEN SCHAFFER Ot I73.9 PERIPHERAL VASCULAR DISEASE, UNSPECIFIED 05/02/2017 KADEN SCHAFFER Ot J44.9 CHRONIC OBSTRUCTIVE PULMONARY DISEASE, U 05/02/2017 KADEN SCHAFFER Ot K21.9 GASTRO-ESOPHAGEAL REFLUX DISEASE WITHOUT 05/02/2017 KADEN SCHAFFER Ot Z79.01 USP (CURRENT) USE OF ANTICOAGULANT 05/02/2017 KADEN SCHAFFER Ot Z79.02 DESIZING PAD OPERATOR (CURRENT) USE OF ANTITHROMBOTI 05/02/2017 KADEN SCHAFFER [...] SCHAFFER Ot I25.10 ATHSCL HEART DISEASE OF [place] CORONARY 05/08/2017 KADEN SCHAFFER Ot I48.2 CHRONIC ATRIAL FIBRILLATION 05/08/2017 KADEN SCHAFFER Ot I50.30 UNSPECIFIED DIASTOLIC (CONGESTIVE) HEART 05/08/2017 KADEN SCHAFFER Ot 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 05/08/2017 KADEN SCHAFFER Ot I73.9 PERIPHERAL VASCULAR DISEASE, UNSPECIFIED 05/08/2017 KADEN SCHAFFER Ot J44.9 CHRONIC OBSTRUCTIVE PULMONARY DISEASE, U 05/08/2017 KADEN SCHAFFER Ot K21.9 GASTRO-ESOPHAGEAL REFLUX DISEASE WITHOUT 05/08/2017 KADEN SCHAFFER Ot Z79.01 DESIZING PAD OPERATOR (CURRENT) USE OF ANTICOAGULANT 05/08/2017 KADEN SCHAFFER Ot Z79.02 USP (CURRENT) USE OF ANTITHROMBOTI 05/08/2017 KADEN SCHAFFER Ot Z87.891 PERSONAL HISTORY OF NICOTINE DEPENDENCE 05/08/2017 KADEN SCHAFFER Ot Z95.828 PRESENCE OF OTHER VASCULAR IMPLANTS AND 05/08/2017 KADEN CSHAFFER Ot Z99.81 DEPENDENCE ON SUPPLEMENTAL OXYGEN 05/25/2017 [...] SCHAFFER Ot I25.10 ATHSCL HEART DISEASE OF [place] CORONARY 06/24/2017 KADEN SCHAFFER Ot I48.2 CHRONIC ATRIAL FIBRILLATION 06/24/2017 KADEN SCHAFFER Ot I50.30 UNSPECIFIED DIASTOLIC (CONGESTIVE) HEART 06/24/2017 KADEN SCHAFFER Ot 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 06/24/2017 KADEN SCHAFFER Ot I73.9 PERIPHERAL VASCULAR DISEASE, UNSPECIFIED 06/24/2017 KADEN SCHAFFER Ot J44.9 CHRONIC OBSTRUCTIVE PULMONARY DISEASE, U 06/24/2017 KADEN SCHAFFER Ot K21.9 GASTRO-ESOPHAGEAL REFLUX DISEASE WITHOUT 06/24/2017 KADEN SCHAFFER Ot Z79.01 USP (CURRENT) USE OF ANTICOAGULANT 06/24/2017 KADEN SCHAFFER Ot Z79.02 DESIZING PAD OPERATOR (CURRENT) USE OF ANTITHROMBOTI 06/24/2017 KADEN SCHAFFER [...] SCHAFFER Ot I25.10 ATHSCL HEART DISEASE OF [place] CORONARY 07/14/2017 SARBJITKADEN Ot I48.2 CHRONIC ATRIAL FIBRILLATION 07/14/2017 KADEN SCHAFFER Ot I50.30 UNSPECIFIED DIASTOLIC (CONGESTIVE) HEART 07/14/2017 KADEN SCHAFFER Ot 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 07/14/2017 KIM SCHAFFERCHAD Marlena Ot I73.9 PERIPHERAL VASCULAR DISEASE, UNSPECIFIED 07/14/2017 KADEN SCHAFFER Ot J44.9 CHRONIC OBSTRUCTIVE PULMONARY DISEASE, U 07/14/2017 KIM SCHAFFERCHAD Marlena Ot K21.9 GASTRO-ESOPHAGEAL REFLUX DISEASE WITHOUT 07/14/2017 KIM SCHAFFERCHAD Marlena Ot Z79.01 DESIZING PAD OPERATOR (CURRENT) USE OF ANTICOAGULANT 07/14/2017 KADEN SCHAFFER Ot Z79.02 USP (CURRENT) USE OF ANTITHROMBOTI 07/14/2017 KADEN SCHAFFER [...] SARBJITKADEN Ot I25.10 ATHSCL HEART DISEASE OF [place] CORONARY 09/21/2017 SARBJITKADEN Ot I48.2 CHRONIC ATRIAL FIBRILLATION 09/21/2017 KADEN SCHAFFER Ot I50.30 UNSPECIFIED DIASTOLIC (CONGESTIVE) HEART 09/21/2017 KADEN SCHAFFER Ot 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 09/21/2017 KADEN SCHAFFER N Ot I73.9 PERIPHERAL VASCULAR DISEASE, UNSPECIFIED 09/21/2017 KADEN SCHAFFER Ot J44.9 CHRONIC OBSTRUCTIVE PULMONARY DISEASE, U 09/21/2017 KADEN SCHAFFER Ot K21.9 GASTRO-ESOPHAGEAL REFLUX DISEASE WITHOUT 09/21/2017 KADEN SCHAFFER Ot Z79.01 DESIZING PAD OPERATOR (CURRENT) USE OF ANTICOAGULANT 09/21/2017 KADEN SCHAFFER N Ot Z79.02 DESIZING PAD OPERATOR (CURRENT) USE OF ANTITHROMBOTI 09/21/2017 KADEN SCHAFFER [...] SCHAFFER Ot I25.10 ATHSCL HEART DISEASE OF [place] CORONARY 10/06/2017 KADEN SCHAFFER Ot I48.2 CHRONIC ATRIAL FIBRILLATION 10/06/2017 KADEN SCHAFFER Ot I50.30 UNSPECIFIED DIASTOLIC (CONGESTIVE) HEART 10/06/2017 KADEN SCHAFFER Ot 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 10/06/2017 KADEN SCHAFFER Ot I73.9 PERIPHERAL VASCULAR DISEASE, UNSPECIFIED 10/06/2017 KADEN SCHAFFER Ot J44.9 CHRONIC OBSTRUCTIVE PULMONARY DISEASE, U 10/06/2017 KADEN SCHAFFER Ot K21.9 GASTRO-ESOPHAGEAL REFLUX DISEASE WITHOUT 10/06/2017 KADEN SCHAFFER Ot Z79.01 USP (CURRENT) USE OF ANTICOAGULANT 10/06/2017 KADEN SCHAFFER Ot Z79.02 USP (CURRENT) USE OF ANTITHROMBOTI 10/06/2017 KADEN SCHAFFER [...] SCHAFFER Ot I25.10 ATHSCL HEART DISEASE OF [place] CORONARY 10/13/2017 KADEN SCHAFFER Ot I48.2 CHRONIC ATRIAL FIBRILLATION 10/13/2017 KADEN SCHAFFER Ot I50.30 UNSPECIFIED DIASTOLIC (CONGESTIVE) HEART 10/13/2017 KADEN SCHAFFER Ot 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 10/13/2017 KADEN SCHAFFER Ot I73.9 PERIPHERAL VASCULAR DISEASE, UNSPECIFIED 10/13/2017 KADEN SCHAFFER Ot J44.9 CHRONIC OBSTRUCTIVE PULMONARY DISEASE, U 10/13/2017 KADEN SCHAFFER Ot K21.9 GASTRO-ESOPHAGEAL REFLUX DISEASE WITHOUT 10/13/2017 KADEN SCHAFFER Ot Z79.01 USP (CURRENT) USE OF ANTICOAGULANT 10/13/2017 KADEN SCHAFFER Ot Z79.02 USP (CURRENT) USE OF ANTITHROMBOTI 10/13/2017 SARBJITKADEN Ot [...] SCHAFFER Ot I25.10 ATHSCL HEART DISEASE OF [place] CORONARY 12/21/2017 KADEN SCHAFFER Ot I48.2 CHRONIC ATRIAL FIBRILLATION 12/21/2017 KADEN SCHAFFER Ot I50.30 UNSPECIFIED DIASTOLIC (CONGESTIVE) HEART 12/21/2017 KADEN SCHAFFER Ot 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 12/21/2017 KADEN SCHAFFER Ot I73.9 PERIPHERAL VASCULAR DISEASE, UNSPECIFIED 12/21/2017 KADEN SCHAFFER Ot J44.9 CHRONIC OBSTRUCTIVE PULMONARY DISEASE, U 12/21/2017 KADEN SCHAFFER Ot K21.9 GASTRO-ESOPHAGEAL REFLUX DISEASE WITHOUT 12/21/2017 KADEN SCHAFFER Ot Z79.01 USP (CURRENT) USE OF ANTICOAGULANT 12/21/2017 KADEN SCHAFFER Ot Z79.02 USP (CURRENT) USE OF ANTITHROMBOTI 12/21/2017 KADEN SCHAFFER [...] SCHAFFER Ot I25.10 ATHSCL HEART DISEASE OF [place] CORONARY 12/22/2017 KADEN SCHAFFER Ot I48.2 CHRONIC ATRIAL FIBRILLATION 12/22/2017 KADEN SCHAFFER Ot I50.30 UNSPECIFIED DIASTOLIC (CONGESTIVE) HEART 12/22/2017 KADEN SCHAFFER Ot 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 12/22/2017 KADEN SCHAFFER Ot I73.9 PERIPHERAL VASCULAR DISEASE, UNSPECIFIED 12/22/2017 KADEN SCHAFFER Ot J44.9 CHRONIC OBSTRUCTIVE PULMONARY DISEASE, U 12/22/2017 KADEN SCHAFFER Ot K21.9 GASTRO-ESOPHAGEAL REFLUX DISEASE WITHOUT 12/22/2017 KADEN SCHAFFER Ot Z79.01 USP (CURRENT) USE OF ANTICOAGULANT 12/22/2017 KADEN SCHAFFER Ot Z79.02 USP (CURRENT) USE OF ANTITHROMBOTI 12/22/2017 KADEN SCHAFFER [...] SCHAFFER Ot I25.10 ATHSCL HEART DISEASE OF [place] CORONARY 12/22/2017 KADEN SCHAFFER Ot I48.2 CHRONIC ATRIAL FIBRILLATION 12/22/2017 KADEN SCHAFFER Ot I50.30 UNSPECIFIED DIASTOLIC (CONGESTIVE) HEART 12/22/2017 KADEN SCHAFFER Ot 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 12/22/2017 KADEN SCHAFFER Ot I73.9 PERIPHERAL VASCULAR DISEASE, UNSPECIFIED 12/22/2017 KADEN SCHAFFER Ot J44.9 CHRONIC OBSTRUCTIVE PULMONARY DISEASE, U 12/22/2017 KADEN SCHAFFER Ot K21.9 GASTRO-ESOPHAGEAL REFLUX DISEASE WITHOUT 12/22/2017 KADEN SCHAFFER Ot Z79.01 DESIZING PAD OPERATOR (CURRENT) USE OF ANTICOAGULANT 12/22/2017 KADEN SCHAFFER Ot Z79.02 DESIZING PAD OPERATOR (CURRENT) USE OF ANTITHROMBOTI 12/22/2017 KADEN SCHAFFER [...] SCHAFFER Ot I25.10 ATHSCL HEART DISEASE OF [place] CORONARY 01/13/2018 KADEN SCHAFFER Ot I48.2 CHRONIC ATRIAL FIBRILLATION 01/13/2018 KADEN SCHAFFER Ot I50.30 UNSPECIFIED DIASTOLIC (CONGESTIVE) HEART 01/13/2018 KADEN SCHAFFER Ot 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 01/13/2018 KADEN SCHAFFER N Ot I73.9 PERIPHERAL VASCULAR DISEASE, UNSPECIFIED 01/13/2018 KADEN SCHAFFER N Ot J44.9 CHRONIC OBSTRUCTIVE PULMONARY DISEASE, U 01/13/2018 KADEN SCHAFFER N Ot K21.9 GASTRO-ESOPHAGEAL REFLUX DISEASE WITHOUT 01/13/2018 KADEN SCHAFFER Ot Z79.01 DESIZING PAD OPERATOR (CURRENT) USE OF ANTICOAGULANT 01/13/2018 KADEN SCHAFFER N Ot Z79.02 DESIZING PAD OPERATOR (CURRENT) USE OF ANTITHROMBOTI 01/13/2018 KADEN SCHAFFER Ot Z87.891 PERSONAL HISTORY OF NICOTINE DEPENDENCE 01/13/2018 KADEN SCHAFFER Ot Z95.828 PRESENCE OF OTHER VASCULAR IMPLANTS AND 01/13/2018 KADEN SCHAFFER Ot Z99.81 DEPENDENCE ON SUPPLEMENTAL OXYGEN 01/15/2018 ANDREWS SZYMANSKI, LOUISE Snyder Ot E78. 5 HYPERLIPIDEMIA, UNSPECIFIED 01/15/2018 ANDREWS SZYMANSKI, LOUISE Snyder Ot I10 ESSENTIAL [...] SCHAFFER Ot I25.10 ATHSCL HEART DISEASE OF [place] CORONARY 01/19/2018 KADEN SCHAFFER N Ot I48.2 [...] DISEASE WITHOUT 01/19/2018 KADEN SCHAFFER Ot Z79.01 DESIZING PAD OPERATOR (CURRENT) USE OF ANTICOAGULANT 01/19/2018 KADEN SCHAFFER Ot Z79.02 USP (CURRENT) USE OF ANTITHROMBOTI 01/19/2018 KADEN SCHAFFER [...] SCHAFFER Ot I25.10 ATHSCL HEART DISEASE OF [place] CORONARY 03/22/2018 KADEN SCHAFFER Ot I48.2 CHRONIC ATRIAL FIBRILLATION 03/22/2018 KADEN SCHAFFER Ot I50.30 UNSPECIFIED DIASTOLIC (CONGESTIVE) HEART 03/22/2018 KADEN SCHAFFER Ot 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 03/22/2018 KADEN SCHAFFER Ot I73.9 PERIPHERAL VASCULAR DISEASE, UNSPECIFIED 03/22/2018 KADEN SCHAFFER Ot J44.9 CHRONIC OBSTRUCTIVE PULMONARY DISEASE, U 03/22/2018 KADEN SCHAFFER Ot K21.9 GASTRO-ESOPHAGEAL REFLUX DISEASE WITHOUT 03/22/2018 KADEN SCHAFFER Ot Z79.01 DESIZING PAD OPERATOR (CURRENT) USE OF ANTICOAGULANT 03/22/2018 KADEN SCHAFFER Ot Z79.02 USP (CURRENT) USE OF ANTITHROMBOTI 03/22/2018 KADEN SCHAFFER [...] SCHAFFER Ot I25.10 ATHSCL HEART DISEASE OF [place] CORONARY 07/14/2018 KADEN SCHAFFER Ot I48.2 CHRONIC ATRIAL FIBRILLATION 07/14/2018 KADEN SCHAFFER Ot I50.30 UNSPECIFIED DIASTOLIC (CONGESTIVE) HEART 07/14/2018 KADEN SCHAFFER Ot 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 07/14/2018 KADEN SCHAFFER Ot I73.9 PERIPHERAL VASCULAR DISEASE, UNSPECIFIED 07/14/2018 KADEN SCHAFFER Ot J44.9 CHRONIC OBSTRUCTIVE PULMONARY DISEASE, U 07/14/2018 KADEN SCHAFFER Ot K21.9 GASTRO-ESOPHAGEAL REFLUX DISEASE WITHOUT 07/14/2018 KADEN SCHAFFER Ot Z79.01 DESIZING PAD OPERATOR (CURRENT) USE OF ANTICOAGULANT 07/14/2018 KADEN SCHAFFER Ot Z79.02 DESIZING PAD OPERATOR (CURRENT) USE OF ANTITHROMBOTI 07/14/2018 KADEN SCHAFFER [...] SCHAFFER Ot I25.10 ATHSCL HEART DISEASE OF [place] CORONARY 09/20/2018 KADEN SCHAFFER Ot I48.2 CHRONIC ATRIAL FIBRILLATION 09/20/2018 KADEN SCHAFFER Ot I50.30 UNSPECIFIED DIASTOLIC (CONGESTIVE) HEART 09/20/2018 KADEN SCHAFFER Ot 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 09/20/2018 KADEN SCHAFFER Ot I73.9 PERIPHERAL VASCULAR DISEASE, UNSPECIFIED 09/20/2018 KADEN SCHAFFER Ot J44.9 CHRONIC OBSTRUCTIVE PULMONARY DISEASE, U 09/20/2018 KADEN SCHAFFER Ot K21.9 GASTRO-ESOPHAGEAL REFLUX DISEASE WITHOUT 09/20/2018 KADEN SCHAFFER Ot Z79.01 DESIZING PAD OPERATOR (CURRENT) USE OF ANTICOAGULANT 09/20/2018 KADEN SCHAFFER Ot Z79.02 DESIZING PAD OPERATOR (CURRENT) USE OF ANTITHROMBOTI 09/20/2018 KADEN SCHAFFER [...] Marlena Ot I25.10 ATHSCL HEART DISEASE OF [place] CORONARY 09/21/2018 SARBJIT KIMCHAD Marlena Ot I48.2 [...] WITHOUT 09/21/2018 KADEN SCHAFFER Marlena Ot Z79.01 USP (CURRENT) USE OF ANTICOAGULANT 09/21/2018 KADEN SCHAFFER N Ot Z79.02 DESIZING PAD OPERATOR (CURRENT) USE OF ANTITHROMBOTI 09/21/2018 KADEN SCHAFFER [...] STENOSIS OF BILATERAL [place] 12/24/2018 RAJAT GRIGSBY NOISE ABATEMENT ENGINEER Ot I27.2 OTHER SECONDARY PULMONARY HYPERTENSION 12/24/2018 RAJAT GRIGSBY NOISE ABATEMENT ENGINEER Ot J43.9 EMPHYSEMA, UNSPECIFIED 12/24/2018 RAJAT GRIGSBY NOISE ABATEMENT ENGINEER Ot R09.02 HYPOXEMIA 12/24/2018 RAJAT GRIGSBY NOISE ABATEMENT ENGINEER Ot I27.2 OTHER SECONDARY PULMONARY HYPERTENSION 12/24/2018 RAJAT GRIGSBY NOISE ABATEMENT ENGINEER Ot J43.9 EMPHYSEMA, UNSPECIFIED 12/24/2018 RAJAT GRIGSBY NOISE ABATEMENT ENGINEER Ot R06.02 SHORTNESS OF BREATH 12/24/2018 RAJAT GRIGSYB APRN Ot R09.02 HYPOXEMIA 12/24/2018 RAJAT GRIGSBY NOISE ABATEMENT ENGINEER Ot J43.9 EMPHYSEMA, UNSPECIFIED 12/24/2018 RAJAT GRIGSBY NOISE ABATEMENT ENGINEER Ot J43.9 EMPHYSEMA, UNSPECIFIED 12/24/2018 RAJAT GRIGSBY NOISE ABATEMENT ENGINEER Ot R06.02 SHORTNESS OF BREATH 12/24/2018 AMBROSIO KUMAR DO Ot J43. 9 EMPHYSEMA, UNSPECIFIED 12/24/2018 AMBROSIO KUMAR DO M Ot R06. 02 SHORTNESS OF BREATH 12/24/2018 RAJAT GRIGSBY NOISE ABATEMENT ENGINEER Ot J43.9 EMPHYSEMA, UNSPECIFIED 12/24/2018 KARON MORGAN [...] STENOSIS OF BILATERAL [place] 12/24/2018 RAJAT GRIGSBY NOISE ABATEMENT ENGINEER Ot I27.20 PULMONARY HYPERTENSION, UNSPECIFIED 12/24/2018 RAJAT GRIGSBY APRN Ot I50.32 CHRONIC DIASTOLIC (CONGESTIVE) HEART ROB 12/24/2018 RAJAT GRIGSBY APRN Ot J43.9 EMPHYSEMA, UNSPECIFIED 12/24/2018 RAJAT GRIGSBY APRN Ot R09.02 HYPOXEMIA 12/24/2018 ANJU STANFORD MD Ot E78 .2 MIXED HYPERLIPIDEMIA 12/24/2018 ANJU STANFORD MD Ot I10 ESSENTIAL (PRIMARY) HYPERTENSION 12/24/2018 ANUJ STANFORD MD Ot I48 .0 PAROXYSMAL ATRIAL [...] HEART DISEASE WITH HEART FA 12/24/2018 KARON MORAGN Ot I50.32 CHRONIC DIASTOLIC (CONGESTIVE) HEART ROB [...] MD Ot I25.10 ATHSCL HEART DISEASE OF [place] CORONARY 12/26/2018 GEORGETTE SHIELDS MD Ot I27.22 PULMONARY HYPERTENSION DUE TO LEFT HEART 12/26/2018 GEORGETTE SHIELDS MD Ot I27.23 PULMONARY HYPERTENSION DUE TO LUNG DISEA 12/26/2018 GEORGETTE SHILEDS MD Ot I34 .0 NONRHEUMATIC MITRAL (VALVE) [...] APRN Ot R09.02 HYPOXEMIA 12/28/2018 RAJAT GRIGSBY NOISE ABATEMENT ENGINEER Ot I27.2 OTHER SECONDARY PULMONARY HYPERTENSION 12/28/2018 RAJAT GRIGSBY APRN Ot J43.9 EMPHYSEMA, UNSPECIFIED 12/28/2018 RAJAT GRIGSBY NOISE ABATEMENT ENGINEER Ot R06.02 SHORTNESS OF BREATH 12/28/2018 RAJAT GRIGSBY NOISE ABATEMENT ENGINEER Ot R09.02 HYPOXEMIA 12/28/2018 RAJAT GRIGSBY NOISE ABATEMENT ENGINEER Ot J43.9 EMPHYSEMA, UNSPECIFIED 12/28/2018 RAJAT GRIGSBY NOISE ABATEMENT ENGINEER Ot J43.9 EMPHYSEMA, UNSPECIFIED 12/28/2018 RAJAT GRIGSBY NOISE ABATEMENT ENGINEER Ot R06.02 SHORTNESS OF BREATH 12/28/2018 AMBROSIO KUMAR DO Ot J43. 9 EMPHYSEMA, UNSPECIFIED 12/28/2018 AMBROSIO KUMAR DO Ot R06. 02 SHORTNESS OF BREATH 12/28/2018 RAJAT GRIGSBY NOISE ABATEMENT ENGINEER Ot J43.9 EMPHYSEMA, UNSPECIFIED 12/28/2018 KARON MORGAN [...] SCHAFFER Ot I25.10 ATHSCL HEART DISEASE OF [place] CORONARY 12/28/2018 KADEN SCHAFFER Ot I48.2 CHRONIC ATRIAL FIBRILLATION 12/28/2018 KADEN SCHAFFER Ot I50.30 UNSPECIFIED DIASTOLIC (CONGESTIVE) HEART 12/28/2018 KADEN SCHAFFER Ot 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 12/28/2018 KADEN SCHAFFER Ot I73.9 PERIPHERAL VASCULAR DISEASE, UNSPECIFIED 12/28/2018 KADEN SCHAFFER Ot J44.9 CHRONIC OBSTRUCTIVE PULMONARY DISEASE, U 12/28/2018 KADEN SCHAFFER Ot K21.9 GASTRO-ESOPHAGEAL REFLUX DISEASE WITHOUT 12/28/2018 KADEN SCHAFFER Ot Z79.01 DESIZING PAD OPERATOR (CURRENT) USE OF ANTICOAGULANT 12/28/2018 KADEN SCHAFFER Ot Z79.02 DESIZING PAD OPERATOR (CURRENT) USE OF ANTITHROMBOTI 12/28/2018 KADEN SCHAFFER [...] Marlena Ot I25.10 ATHSCL HEART DISEASE OF [place] CORONARY 01/18/2019 KADEN SCHAFFER Marlena Ot I48.2 CHRONIC ATRIAL FIBRILLATION 01/18/2019 SARBJIT KIMCHAD Marlena Ot I50.30 UNSPECIFIED DIASTOLIC (CONGESTIVE) HEART 01/18/2019 KADEN SCHAFFER Marlena Ot 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 01/18/2019 SARBJIT KADEN Marlena Ot I73.9 PERIPHERAL VASCULAR DISEASE, UNSPECIFIED 01/18/2019 SARBJITKIMCHAD Marlena Ot J44.9 CHRONIC OBSTRUCTIVE PULMONARY DISEASE, U 01/18/2019 KADEN SCHAFFER Marlena Ot K21.9 GASTRO-ESOPHAGEAL REFLUX DISEASE WITHOUT 01/18/2019 KADEN SCHAFFER N Ot Z79.01 DESIZING PAD OPERATOR (CURRENT) USE OF ANTICOAGULANT 01/18/2019 KADEN SCHAFFER N Ot Z79.02 DESIZING PAD OPERATOR (CURRENT) USE OF ANTITHROMBOTI 01/18/2019 KADEN SCHAFFER Marlena Ot Z87.891 PERSONAL HISTORY OF NICOTINE DEPENDENCE 01/18/2019 SARBJIT KADEN Marlena Ot Z95.828 PRESENCE OF OTHER VASCULAR IMPLANTS AND 01/18/2019 KADEN SCHAFFER Marlena Ot Z99.81 DEPENDENCE ON SUPPLEMENTAL OXYGEN 02/21/2019 RAJAT GRIGSBY NOISE ABATEMENT ENGINEER Ot I27.23 PULMONARY HYPERTENSION DUE TO LUNG DISEA 02/21/2019 RAJAT GRIGSBY NOISE ABATEMENT ENGINEER Ot I51.7 CARDIOMEGALY 02/21/2019 RAJAT GRIGSBY NOISE ABATEMENT ENGINEER Ot J18.9 PNEUMONIA, UNSPECIFIED ORGANISM 02/21/2019 RAJAT GRIGSBY NOISE ABATEMENT ENGINEER Ot J43.2 CENTRILOBULAR EMPHYSEMA 02/21/2019 RAJAT GRIGSBY NOISE ABATEMENT ENGINEER Ot K22.8 OTHER SPECIFIED DISEASES OF ESOPHAGUS 02/21/2019 RAJAT GRIGSBY NOISE ABATEMENT ENGINEER Ot N28.1 CYST OF KIDNEY, ACQUIRED 02/21/2019 RAJAT GRIGSBY NOISE ABATEMENT ENGINEER Ot R59.0 LOCALIZED ENLARGED LYMPH NODES 02/25/2019 RAJAT GRIGSBY NOISE ABATEMENT ENGINEER Ot I27.23 PULMONARY HYPERTENSION DUE TO LUNG DISEA 02/25/2019 RAJAT GRIGSBY NOISE ABATEMENT ENGINEER Ot I51.7 CARDIOMEGALY 02/25/2019 RAJAT GRIGSBY NOISE ABATEMENT ENGINEER Ot J18.9 PNEUMONIA, UNSPECIFIED ORGANISM 02/25/2019 JOSE GRIGSBYINE Genevieve NOISE ABATEMENT ENGINEER Ot J43.2 CENTRILOBULAR EMPHYSEMA 02/25/2019 RAJAT GRIGSBY NOISE ABATEMENT ENGINEER Ot K22.8 OTHER SPECIFIED DISEASES OF ESOPHAGUS 02/25/2019 RAJAT GRIGSBY NOISE ABATEMENT ENGINEER Ot N28.1 CYST OF KIDNEY, ACQUIRED 02/25/2019 RAJAT GRIGSBY NOISE ABATEMENT ENGINEER Ot R59.0 LOCALIZED ENLARGED LYMPH NODES 03/23/2019 KADEN SCHAFFER Ot D64.9 ANEMIA, UNSPECIFIED 03/23/2019 KADEN SCHAFFER Ot E03.9 HYPOTHYROIDISM, UNSPECIFIED 03/23/2019 KADEN SCHAFFER Ot E78.00 PURE HYPERCHOLESTEROLEMIA, UNSPECIFIED 03/23/2019 KADEN SCHAFFER Ot E78.5 HYPERLIPIDEMIA, UNSPECIFIED 03/23/2019 KADEN SCHAFFER Ot I11.0 HYPERTENSIVE HEART DISEASE WITH HEART FA 03/23/2019 KADEN SCHAFFER Ot I25.10 ATHSCL HEART DISEASE OF [place] CORONARY 03/23/2019 KADEN SCHAFFER Ot I48.2 CHRONIC ATRIAL FIBRILLATION 03/23/2019 KADEN SCHAFFER Ot I50.30 UNSPECIFIED DIASTOLIC (CONGESTIVE) HEART 03/23/2019 KADEN SCHAFFER N Ot 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 03/23/2019 KADEN SCHAFFER Ot I73.9 PERIPHERAL VASCULAR DISEASE, UNSPECIFIED 03/23/2019 KADEN SCHAFFER Ot J44.9 CHRONIC OBSTRUCTIVE PULMONARY DISEASE, U 03/23/2019 KADEN SCHAFFER Ot K21.9 GASTRO-ESOPHAGEAL REFLUX DISEASE WITHOUT 03/23/2019 KADEN SCHAFFER Ot Z79.01 DESIZING PAD OPERATOR (CURRENT) USE OF ANTICOAGULANT 03/23/2019 KADEN SCHAFFER Ot Z79.02 USP (CURRENT) USE OF ANTITHROMBOTI 03/23/2019 KADEN SCHAFFER [...] SCHAFFER Ot I25.10 ATHSCL HEART DISEASE OF [place] CORONARY 03/24/2019 KADEN SCHAFFER Ot I48.2 CHRONIC ATRIAL FIBRILLATION 03/24/2019 KADEN SCHAFFER Ot I50.30 UNSPECIFIED DIASTOLIC (CONGESTIVE) HEART 03/24/2019 KADEN SCHAFFER Ot 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 03/24/2019 KADEN SCHAFFER Ot I73.9 PERIPHERAL VASCULAR DISEASE, UNSPECIFIED 03/24/2019 KADEN SCHAFFER Ot J44.9 CHRONIC OBSTRUCTIVE PULMONARY DISEASE, U 03/24/2019 KADEN SCHAFFER Ot K21.9 GASTRO-ESOPHAGEAL REFLUX DISEASE WITHOUT 03/24/2019 KADEN SCHAFFER Ot Z79.01 DESIZING PAD OPERATOR (CURRENT) USE OF ANTICOAGULANT 03/24/2019 KADEN SCHAFFER Ot Z79.02 USP (CURRENT) USE OF ANTITHROMBOTI 03/24/2019 KADEN SCHAFFER Ot Z87.891 PERSONAL HISTORY OF NICOTINE DEPENDENCE 03/24/2019 KADEN SCHAFFER Ot Z95.828 PRESENCE OF OTHER VASCULAR IMPLANTS AND 03/24/2019 KADEN SCHAFFER Ot Z99.81 DEPENDENCE ON SUPPLEMENTAL OXYGEN 04/13/2019 AMBROSIO KUMAR DO Ot I27. 23 PULMONARY HYPERTENSION DUE TO LUNG DISEA 04/13/2019 AMBROSIO KUMAR DO Ot I51. 7 CARDIOMEGALY 04/13/2019 JOSÉ NEWMAN AMBROSIO M Ot I51. 89 OTHER [...] DO Ot E78. 5 HYPERLIPIDEMIA, UNSPECIFIED 07/28/2019 HERLIDNA MANZANARES DO Ot I11. 0 HYPERTENSIVE HEART [...] 07/28/2019 HERLINDA MANZANARES DO Ot Z79.899 OTHER USP (CURRENT) DRUG THERAPY 07/28/2019 HERLINDA MANZANARES DO Ot Z82. 49 FAMILY HX OF ISCHEM HEART DIS AND OTH DI 07/28/2019 HERLINDA MANZANARES DO Ot Z87.891 PERSONAL HISTORY OF NICOTINE DEPENDENCE 07/28/2019 HERLINDA MANZANARES DO Ot Z88. 8 ALLERGY STATUS TO [facility] DRUG/MEDS/BIOL SUB 07/28/2019 HERLINDA MANZANARES DO Ot [...] 08/02/2019 HERLINDA MANZANARES DO Ot Z79.899 OTHER USP (CURRENT) DRUG THERAPY 08/02/2019 HERLINDA MANZANARES DO [...] 08/04/2019 HERLINDA MANZANARES DO Ot Z79.899 OTHER USP (CURRENT) DRUG THERAPY 08/04/2019 MANZANARES HERLINDA NEWMAN [...] OF BOTH MITRAL AND T 10/25/2019 LOUISE PSARROW MD Ot I11. 9 HYPERTENSIVE HEART DISEASE [...] SCHAFFER Ot I25.10 ATHSCL HEART DISEASE OF [place] CORONARY 01/16/2020 KADEN SCHAFFER Ot I48.2 CHRONIC ATRIAL FIBRILLATION 01/16/2020 KADEN SCHAFFER Ot I50.30 UNSPECIFIED DIASTOLIC (CONGESTIVE) HEART 01/16/2020 KADEN SCHAFFER Ot 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 01/16/2020 KADEN SCHAFFER Ot I73.9 PERIPHERAL VASCULAR DISEASE, UNSPECIFIED 01/16/2020 KADEN SCHAFFER Ot J44.9 CHRONIC OBSTRUCTIVE PULMONARY DISEASE, U 01/16/2020 KADEN SCHAFFER Ot K21.9 GASTRO-ESOPHAGEAL REFLUX DISEASE WITHOUT 01/16/2020 KADEN SCHAFFER Ot Z79.01 USP (CURRENT) USE OF ANTICOAGULANT 01/16/2020 KADEN SCHAFFER Ot Z79.02 USP (CURRENT) USE OF ANTITHROMBOTI 01/16/2020 KADEN SCHAFFER [...] 06/29/2012 88.56 TREVOR MARY ARTERIOGR-2 CATH 06/29/2012 5HP87MB EX CISION OF STOMACH, ENDO, DIAGN 01/15/2017 [id number] EX CISION OF STOMACH, PYLORUS, ENDO, DIAG 01/15/2017 07HV23R IN SERTION OF INFUSION DEV INTO SUP VENA 12/24/2018 Results Test Result Range Thyroid Stimulating Hormone - 07/18/16 1 4:46 TSH 2.93 mIU/mL 0.32-5.00 [id number] - 08/11/16 16:08 Serum or plasma urea [...] ABO+Rh group AP NRG Transfusion band number [id number] NRG Blood group antibody screen NEGATIVE NR [...] culture - 12/24/18 07:50 Bacterial urine culture [id number] NRG COLONY COUNT >100,000/ML NRG FTX;REPORTABLE SUSCEPTIBILITY [...] - 06/27/19 16:27 Surg Path Sent to [facility] Pathology Methicillin resistant Staphylococcus aur eus (MRSA) [...] Status Pt. Type Provider Facility Loc./Unit Complaint [id number] 06/29/2019 11:10:00 Document Registration [id number] 02/14/2020 11:38:00 [id number] 16:38[facility]00 [facility]11[id number] 15:03:00 01/11/2020 [id number] 12/30[facility]2019 11:10:00 12/30/2019 [facility]59 [id number]12[facility]2019 15:22:00 12/12/2019 [id number]2019 12:55:00 12[facility]12/2019 [id number]:25[facility]00 [id number]:01[facility]00 [facility]2019 [id number] 06/27[facility]2019 11:18:00 06/27/2019 23:59: 00 [facility] Anju Stanford [id number] 06/08/2019 14:01:00 06/08/2019 23:59: 00 DIS Outpatient Anju Stanford [id number] 06/07/2019 09:00:00 06/07/2019 23:59: 00 DIS Outpatient Anju Stanford [id number] 02/02/2019 12:37:00 02/02/2019 23:59: 00 DIS Outpatient Anju Stanford [id number] 06/07/2018 14:39:00 06/07/2018 23:59: 00 DIS Outpatient Anju Stanford [id number] 06/03/2017 13:50:00 06/03/2017 23:59: 00 DIS Outpatient Anju Stanford [id number] 01/21/2017 15:03:00 01/21/2017 23:59: 00 DIS Outpatient Anju Stanford [id number] 07/18/2016 14:41:00 07/18/2016 23:59: 00 DIS Outpatient Anju Stanford [id number] 06/03/2017 13:04:00 Document Registration [id number] 01/24/2020 14:14:00 23:59:59 CLS Outpatient KADEN SCHAFFER [facility] ONC [id number] 10/11/2019 12:34:00 23:59:59 CLS Outpatient LOUISE SPARROW MD Via [facility] CARD HYPERLIPIDEMIA,HTN,[place] TIS STENOSIS [id number] 08/23/2019 10:54:00 020 23:59:59 CLS Preadmit LOUISE SPARROW MD Via [facility] CARD ATRIAL FIB W/ RVR,HYPERLIPIDEMIA,HTN,CAROTID STENO [id number] 07/28/2019 09:09:00 13:25:00 DIS Outpatient MANZANARES HERLINDA NEWMAN Via [facility] SDC PIGMENTED EPITHELIAL ME LANOCYTOMA [id number] 07/26/2019 12:26:00 13:53:00 DIS Outpatient MANZANARES HERLINDA NEWMAN Via [facility] PREOP PIGMENTED EPITHELIAL ME LANOCYTOMA [id number] 06/21/2019 10:42:00 23:59:59 CLS Outpatient ANGEL MORGAN Via [facility] LAB HTN, HYPERL IPIDEMIA [id number] 04/11/2019 15:34:00 23:59:59 CLS Outpatient JOSÉ NEWMAN AMBROSIO M Via [facility] RAD DYSPNEA [id number] 12/30/2018 15:21:00 00:01:00 DIS Outpatient KADEN SCHAFFER [facility] ONC [id number] 02/15/2019 12:11:00 23:59:59 CLS Outpatient RAJAT GRIGSBY NOISE ABATEMENT ENGINEER Via [facility] RAD DYSPNEA [id number] 01/13/2019 07:37:00 23:59:59 CLS Preadmit RAJAT GRIGSBY NOISE ABATEMENT ENGINEER Via [facility] RT COPD W/ EMPHYSE MA [id number] 12/24/2018 10:15:00 11:58:00 DIS Inpatient GEORGETTE SHIELDS MD Via [facility] 4TH PNA;SEPTIC SHOCK [id number] 07/01/2018 12:56:00 00:01:00 DIS Outpatient KADEN SCHAFFER [facility] ONC [id number] 06/17/2018 13:36:00 23:59:59 CLS Outpatient ANGEL MORGAN Via [facility] CARD CAROTID JABARI NOSIS [id number] 06/01/2018 11:43:00 23:59:59 CLS Outpatient LOUISE SPARROW MD Via [facility] LAB I10 [id number] 03/16/2018 13:39:00 00:01:00 DIS Outpatient KADEN SCHAFFER [facility] ONC [id number] 01/05/2018 11:43:00 23:59:59 CLS Outpatient LOUISE SPARROW MD Via [facility] LAB I48.0,I65.23 [id number] 12/15/2017 13:48:00 018 00:01:00 DIS Outpatient SARBJIT KADEN Avila ia [facility] ONC [id number] 11/26/2017 13:19:00 018 23:59:59 CLS Outpatient RAJAT GRIGSBY E NOISE ABATEMENT ENGINEER Via [facility] LAB J43.9 [id number] 06/23/2017 13:10:00 018 00:01:00 DIS Outpatient SARBJIT KADEN Mendiola V ia [facility] ONC [id number] 08/06/2017 13:32:00 018 23:59:59 CLS Outpatient RAJAT GRIGSBY NOISE ABATEMENT ENGINEER Via [facility] LAB J43.9 [id number] 05/26/2017 12:19:00 017 23:59:59 CLS Outpatient ANDREWS SZYMANSKI, LOUISE Snyder [facility] CARD HTN [id number] 05/13/2017 10:39:00 017 23:59:59 CLS Outpatient ABDOULAYE SZYMANSKI, ANJU Melara Via [facility] LAB I 48.0 I10 E78.2 I 65.2 3 I50.32 [id number] 05/05/2017 13:42:00 017 23:59:59 CLS Outpatient RAJAT GRIGSBY NOISE ABATEMENT ENGINEER Via [facility] LAB J43.9,I50.32,R0 9.02,I27.2 [id number] 04/22/2017 11:10:00 017 00:01:00 DIS Outpatient SARBJIT KADEN Avila ia [facility] ONC [id number] 02/05/2017 13:53:00 017 23:59:59 CLS Outpatient RAJAT GRIGSBY NOISE ABATEMENT ENGINEER Via [facility] LAB I10,E78.2 [id number] 01/14/2017 16:30:00 017 12:00:00 DIS Inpatient SMOOTH DO, ANAT V ia [facility] ICU AFIB W RVR,ANEMIA,SUSPE CTED GI BLEED [id number] 12/26/2016 07:17:00 017 11:40:00 DIS Outpatient TUNG SAVAGE MD Via [facility] NOSE BLEED R04.0 [id number] 12/23/2016 09:44:00 017 23:59:59 CLS Outpatient TUNG SAVAGE MD Via [facility] PREOP EPISTAXIS [id number] 12/16/2016 10:58:00 017 23:59:59 CLS Outpatient ANGEL MORGAN Via [facility] LAB HTN,HYPERLI PIDEMIA [id number] 10/28/2016 13:36:00 017 23:59:59 CLS Outpatient RAJAT GRIGSBY APRN Via [facility] LAB COPD W EMPHYSEM A [id number] 10/07/2016 09:38:00 017 23:59:59 CLS Outpatient AMBROSIO KUMAR DO Via [facility] LAB DYSPNEA,COPD [id number] 09/05/2016 09:30:00 017 23:59:59 CLS Outpatient RAJAT GRIGSBY NOISE ABATEMENT ENGINEER Via [facility] LAB COPD,DYSPNEA [id number] 08/12/2016 11:28:00 017 23:59:59 CLS Outpatient RAJAT GRIGSBY NOISE ABATEMENT ENGINEER Via [facility] LAB COPD W/EMPHYSEI MA [id number] 08/11/2016 15:52:00 017 23:59:59 CLS Outpatient RAJAT GRIGSBY NOISE ABATEMENT ENGINEER Via [facility] RAD COPD,DYSPNEA [id number] 07/08/2016 00:10:00 016 23:59:59 CLS Preadmit RAJAT GRIGSBY NOISE ABATEMENT ENGINEER Via [facility] PULM PULM HTN [id number] 04/08/2016 14:32:00 016 00:01:00 DIS Outpatient RAJAT GRIGSBY NOISE ABATEMENT ENGINEER Via [facility] PULM PULM HTN [id number] 04/03/2016 14:30:00 00:01:00 DIS Outpatient RAJAT GRIGSBY APRN Via [facility] PULM PULM HTN [id number] 03/28/2016 13:29:00 23:59:59 CLS Outpatient ANGEL MORGAN Via [facility] CARD CAROTID JABARI NOSIS, DIASTOLIC DYSFUNCTION, HTN, HYPE [id number] 02/29/2016 13:50:00 23:59:59 CLS Outpatient AMBROSIO KUMAR DO Via [facility] RT COPD W/EMPHYSEMA,DYSPNE A,PULM HTN DUE TO HYPOXEMIA [id number] 02/05/2016 03:29:00 06:23:00 DIS Emergency JOSE SZYMANSKI, SKYE Moncada Via [facility] ER ON BLOOD THINNE RS,BLEEDING FROM MOUTH [id number] 01/07/2016 10:15:00 23:59:59 CLS Preadmit RAJAT GRIGSBY APRN Via [facility] PULM PULMINARY HTN,COPD,HYPOXEMIA REQUIRING OXYGEN [id number] 01/03/2016 14:30:00 00:01:00 DIS Outpatient RAJAT GRIGSBY APRN Via [facility] PULM PULMINARY HTN,COPD,HYPOXEMIA REQUIRING OXYGEN [id number] 12/07/2015 11:17:00 15:05:00 DIS Outpatient JANETTE SZYMANSKI, TUNG Hernandez Via [facility] SDC RIGHT POSTERIOR NOSE BL EED [id number] 11/24/2015 05:40:00 14:36:00 DIS Inpatient CORNELIUS SZYMANSKI, GEORGETTE Schafer Via [facility] 4TH NOSEBLEED;EXCESSIVE ANTICOAGULATION;ANEMIA [id number] 10/08/2015 09:14:00 23:59:59 CLS Outpatient LOIUSE SPARROW MD Via [facility] LAB HTN,PULMONARY HTN DUE T O HYPOXIA [id number] 09/10/2015 08:33:00 Mihai 23:59:59 CLS Outpatient LOUISE SPARROW MD Via [facility] RAD CAROTID STENOSIS [id number] 08/28/2015 13:54:00 016 14:28:00 DIS Outpatient AMBROSIO KUMAR DO Via [facility] SLEEP SNORING, ARRHYTHMIAS, E DS [id number] 08/08/2015 07:30:00 016 15:40:00 DIS Outpatient LOUISE SPARROW MD Via [facility] CATH ABNORMAL STRESS TEST,SH ORNTESS OF BREATH,HTP,HTN [id number] 07/25/2015 10:48:00 23:59:59 CLS Outpatient LOUISE SPARROW MD Via [facility] CARD A-FIB W/ RVR,DYSPNEA,HTN,HYPERLIPIDEMIA [id number] 06/27/2015 20:30:00 13:20:00 DIS Inpatient ELANA OSCAR DO, V [facility] 4TH SOA [id number] 04/28/2015 15:34:00 13:27:00 DIS Inpatient NIKOS SZYMANSKI, ANGELA Clark [facility] CSD DYSPNEA,LOW OXYGEN,ACUT E OR CHRONIC CHF,PNEUMONIA [id number] 04/25/2015 20:45:00 015 13:25:00 DIS Inpatient ANAT REBOLLAR DO, V [facility] CSD ACUTE HEART FAILURE [id number] 01/24/2015 08:34:00 015 13:00:00 DIS Outpatient JIM MEAD MD Via [facility] SDC NAUSEA [id number] 01/18/2015 06:09:00 23:59:59 CLS Outpatient JIM MEAD MD Via [facility] PREOP NAUSEA [id number] 01/08/2015 09:34:00 23:59:59 CLS Outpatient ANJU STANFORD MD Via [facility] CARD EPIGASTRIC PAIN [id number] 12/28/2014 10:22:00 23:59:59 CLS Outpatient AMBROSIO KUMAR DO Via [facility] RAD COPD,DYSPNEA,PE [id number] 11/13/2014 11:25:00 015 07:15:00 DIS Inpatient LOUISE SPARROW MD Via [facility] CSD DIGOXIN TOXICITY HYPONA TREMIA CHF W/EFFUSIONS [id number] 11/08/2014 07:44:00 015 23:59:59 CLS Outpatient AMBROSIO KUMAR DO Via [facility] RT DYSPNEA [id number] 08/30/2014 07:09:00 015 09:50:00 DIS Outpatient JIM MEAD MD Via [facility] SDC SCREENING [id number] 08/28/2014 10:53:00 015 23:59:59 CLS Outpatient LOUISE SPARROW MD Via [facility] CARD JOE,HTN,HLP [id number] 08/23/2014 05:51:00 015 23:59:59 CLS Outpatient JIM MEAD MD Via [facility] PREOP SCREENING [id number] 02/17/2020 17:50:[address] Inpatient KELLIE BROWER MD Via [facility] ICU COPD EXACERBATION,ACUTE RESP FAILURE W/ HYPOXIA,CO [id number] 09/12/2012 11:25:00 Document Registration [id number] 08/30/2012 08:38:00 Document Registration [id number] 06/29/2012 10:34:00 Document Registration [id number] 06/27/2019 15:01:00 Document Registration
--- NOTE | 2020-02-17 22:09 | NUR ---
Pt transitioned to hi-ramy cannula at 6L (her home settings) per RT Bing.
--- NOTE | 2020-02-17 22:42 | NUR ---
Dr Londono called by this RN to update on pt condition and request vapotherm per RT.
[2020-02-18] VITALS (29 sets, daily range): BP systolic 75–113; BP diastolic 39–70
[2020-02-18 03:08] LABS: BASOPHILS % (AUTO) 0 % (0-10); EOSINOPHILS % (AUTO) 0 % (0-10); HEMATOCRIT 41 % (35-52); HEMOGLOBIN 14.3 G/DL (11.5-16.0); LYMPHOCYTES # (AUTO) 0.2 X 10^3 (1.0-4.0); LYMPHOCYTES % (AUTO) 2 % (12-44); MEAN CORPUSCULAR HEMOGLOBIN 33 PG (25-34); MEAN CORPUSCULAR HGB CONC 35 G/DL (32-36); MEAN CORPUSCULAR VOLUME 94 FL (80-99); MEAN PLATELET VOLUME 10.6 FL (7.4-10.4); MONOCYTES # (AUTO) 0.1 X 10^3 (0.0-1.0); MONOCYTES % (AUTO) 1 % (0-12); NEUTROPHILS # (AUTO) 6.6 X 10^3 (1.8-7.8); NEUTROPHILS % (AUTO) 97 % (42-75); PLATELET COUNT 211 10^3/uL (130-400); RED CELL DISTRIBUTION WIDTH 14.9 % (10.0-14.5); WHITE BLOOD COUNT 6.9 10^3/uL (4.3-11.0)
[2020-02-18 03:31] LABS: ALBUMIN 3.8 GM/DL (3.2-4.5); POTASSIUM 4.1 MMOL/L (3.6-5.0)
[2020-02-18 03:33] LABS: CALCIUM 8.6 MG/DL (8.5-10.1)
[2020-02-18 03:34] LABS: TOTAL PROTEIN 6.6 GM/DL (6.4-8.2)
[2020-02-18 03:37] LABS: CREATININE SERUM 1.02 MG/DL (0.60-1.30); PHOSPHORUS 3.9 MG/DL (2.3-4.7)
[2020-02-18 03:40] LABS: MAGNESIUM 1.7 MG/DL (1.6-2.4)
[2020-02-18 03:55] LABS: ANISOCYTOSIS SLIGHT; BAND NEUTROPHILS 1 %; LYMPHOCYTES % (MANUAL) 2 %; NEUTROPHILS % (MANUAL) 97 %
[2020-02-18] MEDS ORDERED: POTASSIUM CL 10MEQ/50ML IVPB 50 ML IV SCH (06:00)
[2020-02-18] MEDS ORDERED: MAGNESIUM 1 GM/100 ML IVPB 100 ML IV SCH (06:00)
[2020-02-18] MEDS ORDERED: KCL 20 MEQ TAB (K-DUR) PO SCH ×3 (06:00→14:30)
[2020-02-18] MEDS: FUROSEMIDE 20 MG (LASIX) TAB PO SCH (06:20)
[2020-02-18] MEDS: methylPREDNISolone 40 MG/ML (Solu-MEDROL) VIAL IV SCH ×3 (06:20→18:04)
[2020-02-18] MEDS: MAGNESIUM 1 GM/100 ML IVPB 100 ML IV SCH ×2 (06:20→08:33)
[2020-02-18] MEDS ORDERED: LEVOTHYROXINE 25 MCG (LEVOTHROID) TAB PO SCH ×2 (06:30→14:30)
[2020-02-18] MEDS: SILDENAFIL 20 MG (REVATIO) TAB NON-FORMULARY PO SCH ×3 (08:34→21:44)
[2020-02-18] MEDS ORDERED: PANTOPRAZOLE 40 MG (PROTONIX) TAB PO SCH ×2 (09:00→14:30)
[2020-02-18] MEDS ORDERED: SODIUM CHLORIDE PRN ×2 (09:45→14:30)
[2020-02-18] MEDS ORDERED: ALOE VERA PRN ×2 (09:45→14:30)
[2020-02-18] MEDS ORDERED: RT-ALBUTEROL SULF 2.5 MG/3 ML PRE-MIX VIAL IH PRN (09:45)
[2020-02-18] MEDS ORDERED: DOCUSATE SODIUM 100 MG (COLACE) CAP PO PRN (09:45)
[2020-02-18] MEDS ORDERED: ACETAMINOPHEN 500 MG TAB (TYLENOL) PO PRN ×2 (09:45→14:30)
[2020-02-18] MEDS ORDERED: RT-ALBUTEROL SULF 2.5 MG/3 ML PRE-MIX VIAL INH PRN ×2 (09:45→14:30)
[2020-02-18] MEDS ORDERED: [UNRECOGNIZED DRUG - OTHER] PRN ×2 (09:45→14:30)
[2020-02-18] MEDS ORDERED: SALINE NASAL SPRAY (OCEAN) 45 ML BTL NS PRN (09:45)
--- NOTE | 2020-02-18 09:54 | History & Physical-Hospitalist ---
History of Present Illness HPI/Chief Complaint This is a 74-year-old white female who presents to the emergency room with complaints of increased shortness of breath for the last day or 2. Her oxygen saturation was down into the 70s when EMS arrived. She did not notice any precipitating factors. She did have an episode about 2 weeks ago requiring prednisone that Dr. Cage had prescribed. She said she felt the best then ever. Source: patient, old records Exam Limitations: no limitations Date Seen 02/18/20 Time Seen by a Provider: 09:00 Attending Physician Alexandra Londono MD PCP Anju Stanford MD Referring Physician Date of Admission Feb 17, 2020 at 17:50 Home Medications & Allergies Home Medications Reviewed patient Home Medication Reconciliation performed by pharmacy medication reconciliations lawn care technician and/or nursing. Patients Allergies have been reviewed. 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) Alcohol Use: Denies Use Recreational Drug Use: No Smoking Status: Former Smoker Former Smoker, Quit: December 02, 1999 2nd Hand Smoke Exposure: No Recent Foreign Travel: No Contact w/other who traveled: No Recent Hopitalizations: No Recent Infectious Disease Expo: No Immunizations Up To Date Tetanus Booster (TDap): Less than 5yrs Pediatric: Yes Date of Pneumonia Vaccine: May 03, 2019 Date of Influenza Vaccine: May 30, 2019 Seasonal Allergies Seasonal Allergies: No Past Medical History Surgeries: Adenoidectomy, Cardiac, Eye Surgery, Tonsillectomy, Vascular Surgery Respiratory: COPD Currently Using CPAP: No Currently Using BIPAP: No Cardiac: Atrial Fibrillation, Chronic Edema/Swelling, High Cholesterol, Hypertension, Peripheral Vascular Reproductive: No Sexually Transmitted Disease: No HIV/AIDS: No Female Reproductive Disorders: Denies Genitourinary: UTI-Chronic Gastrointestinal: Gastroesophageal Reflux Musculoskeletal: Arthritis Endocrine: Hypothyroidsim HEENT: Cataract Loss of Vision: Bilateral Hearing Impairment: Denies History of Blood Disorders: Yes (ANEMIA--) Adverse Reaction to Blood [place]: No Family History A BLOOD DISEASE 19 FATHER Blood disease Diabetes mellitus G8 BROTHER (BORDERLINE DIABETIC) Hypertension 19 FATHER Psychosocial problem G8 BROTHER (MENTAL RETARDATION) Respiratory disorder 19 MOTHER (COPD) G8 BROTHER (COPD) COPD Review of Systems Constitutional: weakness, other (Unable to catch her breath) EENTM: no symptoms reported Respiratory: dyspnea on exertion, short of breath Cardiovascular: no symptoms reported Gastrointestinal: no symptoms reported Genitourinary: no symptoms reported Musculoskeletal: no symptoms reported Skin: no symptoms reported Psychiatric/Neurological: No Symptoms Reported Physical Exam Physical Exam Vital Signs Vital Signs - First Documented 02/17/20 02/17/20 02/17/20 16:04 16:14 20:00 Temp 36.8 Pulse 116 Resp 20 B/P (MAP) 123/83 (96) Pulse Ox 97 O2 Delivery Non Rebreather O2 Flow Rate 15.00 FiO2 30 Capillary Refill : Less Than 3 Seconds Height, Weight, BMI Height: 5'6.00" Weight: 144lbs. 1.0oz. 65.950803wr; 22.66 BMI Method:Stated General Appearance: Chronically ill, Other (Dyspneic with talking) HEENT: Normal ENT Inspection Neck: Full Range of Motion, Non Tender, Supple Respiratory: Lungs Clear, No Accessory Muscle Use, No Respiratory Distress, Decreased Breath Sounds Cardiovascular: Irregularly Irregular, Tachycardia Gastrointestinal: Normal Bowel Sounds, No Organomegaly, Non Tender, Soft Rectal: Deferred Back: Normal Inspection, No CVA Tenderness, No Vertebral Tenderness Extremity: Normal Inspection, Normal Range of Motion, No Pedal Edema Neurologic/Psychiatric: Alert, Oriented x3, No Motor/Sensory Deficits, Normal Mood/Affect Skin: Normal Color Lymphatic: No Adenopathy Results Results/Procedures Labs Laboratory Tests 02/17/20 16:25 02/18/20 03:00 Patient resulted labs reviewed. Assessment/Plan Admission Diagnosis Exacerbation of COPD Pulmonary hypertension Chronic atrial fibrillation Peripheral vascular disease Hypoxia secondary to number 1 CHF most likely secondary to mitral regurgitation Plan to admit for aggressive pulmonary toilet IV steroids and pulmonary consultation. Admission Status: Inpatient Order (span 2 midnights) Reason for Inpatient Admission: Significant hypoxia with exacerbation ofcopd and other comorbidities Clinical Quality Measures DVT/VTE Risk/Contraindication: Risk Factor Score Per Nursin RFS Level Per Nursing on Admit: 4+=Very High Copy Copies To 1: ANJU STANFORD MD, KATHLEEN M MD Feb 18, 2020 09:54
--- NOTE | 2020-02-18 11:00 | NUR ---
REC'D PER WC FROM ICU. SEE ASSESSMENT.
--- NOTE | 2020-02-18 11:00 | NUR ---
This nurse called SBAR report to Rosibel ESPINAL. Patient transferred to room 415 via wheel chair by this nurse. RT notified prior to transfer so they could assist with getting Vapotherm and Bipap to patients room.
--- NOTE | 2020-02-18 11:32 | NUR ---
RT NOTIFIED CADY WAS BROUGHT FROM HOME AND LOCKED IN PTS ROOM.
[2020-02-18] MEDS: CATHETER FLUSH 10 ML SYR IV SCH ×2 (13:59→21:47)
[2020-02-18] MEDS ORDERED: PATIENT MAY USE OWN MED,SINGLE MED PO SCH (14:00)
[2020-02-18] MEDS ORDERED: SILDENAFIL 20 MG (REVATIO) TAB NON-FORMULARY PO SCH (14:30)
[2020-02-18] MEDS ORDERED: RIVAROXABAN 20 MG TABLET (XARELTO) PO SCH (14:30)
[2020-02-18] MEDS: FLUTICASONE IH SCH (14:45)
[2020-02-18] MEDS: VILANTEROL IH SCH (14:45)
[2020-02-18] MEDS: UMECLIDINIUM IH SCH (14:45)
[2020-02-18] MEDS: FUROSEMIDE 40 MG (LASIX) TAB PO SCH (15:08)
[2020-02-18] MEDS: KCL 20 MEQ TAB (K-DUR) PO SCH (18:04)
[2020-02-18] MEDS: PANTOPRAZOLE 40 MG (PROTONIX) TAB PO SCH (18:04)
[2020-02-18] MEDS: RIVAROXABAN 20 MG TABLET (XARELTO) PO SCH (18:04)
[2020-02-18] MEDS: NS IV 1000 ML 1,000 ML IV SCH (21:44)
[2020-02-19] VITALS (7 sets, daily range): BP systolic 96–120; BP diastolic 57–72
[2020-02-19] MEDS: methylPREDNISolone 40 MG/ML (Solu-MEDROL) VIAL IV SCH (00:41)
[2020-02-19] MEDS: LEVOTHYROXINE 25 MCG (LEVOTHROID) TAB PO SCH (07:42)
[2020-02-19] MEDS: CATHETER FLUSH 10 ML SYR IV SCH ×3 (07:42→20:21)
[2020-02-19] MEDS: VILANTEROL IH SCH (08:20)
[2020-02-19] MEDS: FLUTICASONE IH SCH (08:20)
[2020-02-19] MEDS: UMECLIDINIUM IH SCH (08:20)
[2020-02-19] MEDS: FUROSEMIDE 40 MG (LASIX) TAB PO SCH ×2 (08:36→15:06)
[2020-02-19] MEDS: predniSONE 20 MG TAB PO SCH (08:36)
[2020-02-19] MEDS: FERROUS SULF 325 MG (IRON) TAB PO SCH (08:36)
[2020-02-19] MEDS: MULTIVIT W/MINERALS TAB (THERAGRAN M) PO SCH (08:36)
[2020-02-19] MEDS: SILDENAFIL 20 MG (REVATIO) TAB NON-FORMULARY PO SCH ×3 (08:36→20:21)
[2020-02-19] MEDS: OMEGA 3 (FISH OIL) 1000 MG CAP PO SCH (08:36)
[2020-02-19] MEDS: KCL 20 MEQ TAB (K-DUR) PO SCH ×2 (08:38→18:42)
[2020-02-19] MEDS ORDERED: NON-FORMULARY MEDICATION 1 EA EA (Fluticasone/Umeclidin/Vilanter (Trelegy Ellipta 100-62.5 IH SCH (09:00)
--- NOTE | 2020-02-19 11:28 | Progress Note - Hospitalist ---
Subjective HPI/CC On Admission Date Seen by Provider: Feb 19, 2020 Time Seen by Provider: 10:00 This is a 74-year-old white female who presents to the emergency room with complaints of increased shortness of breath for the last day or 2. Her oxygen saturation was down into the 70s when EMS arrived. She did not notice any precipitating factors. She did have an episode about 2 weeks ago requiring prednisone that Dr. Cage had prescribed. She said she felt the best then ever. Subjective/Events-last exam Patient says that she feels a lot better. She has been confused overnight. She's had that reaction before with Solu-Medrol. She is alert and oriented and appropriate with me this morning. She did say to the scrum master that she had COVID "which she does not. Review of Systems Pulmonary: Dyspnea Neurological: Weakness Focused Exam Lactate Level 02/17/20 16:25: Lactic Acid Level 1.98 Objective Exam Vital Signs Vital Signs Date Time Temp Pulse Resp B/P (MAP) Pulse Ox O2 Delivery O2 Flow Rate FiO2 02/19/20 08:20 92 Vapotherm 20.00 60 02/19/20 08:00 36.8 84 20 99/64 (76) Capillary Refill : Less Than 3 SecondsLess Than 3 Seconds General Appearance: Chronically ill HEENT: Normal ENT Inspection Neck: Non Tender, Supple Respiratory: Lungs Clear, Normal Breath Sounds, No Accessory Muscle Use, No Respiratory Distress Cardiovascular: Regular Rate, Rhythm, No Edema, No Gallop Gastrointestinal: Non Tender, Soft Rectal: Deferred Extremity: Non Tender, No Pedal Edema Neurologic/Psychiatric: Alert, Oriented x3, No Motor/Sensory Deficits, Normal Mood/Affect Skin: Normal Color, Warm/Dry Results/Procedures Lab Patient resulted labs reviewed. Assessment/Plan Assessment and Plan Assess & Plan/Chief Complaint Exacerbation of COPD Pulmonary hypertension Chronic atrial fibrillation Peripheral vascular disease Hypoxia secondary to number 1 CHF most likely secondary to mitral regurgitation Clinical Quality Measures DVT/VTE Risk/Contraindication: Risk Factor Score Per Nursin RFS Level Per Nursing on Admit: 4+=Very High RORY SOLOMON MD Feb 19, 2020 11:28
--- NOTE | 2020-02-19 11:30 | NUR ---
TYLENOL PO FOR HEADACHE.
--- NOTE | 2020-02-19 12:50 | NUR ---
IV FLUIDS DISCONTINUED.
[2020-02-19] MEDS: PANTOPRAZOLE 40 MG (PROTONIX) TAB PO SCH (18:42)
[2020-02-19] MEDS: RIVAROXABAN 20 MG TABLET (XARELTO) PO SCH (18:42)
[2020-02-20] VITALS: BP 95/52
[2020-02-20 04:00] VITALS: BP 104/66
--- NOTE | 2020-02-20 06:00 | NUR ---
this rn informed dr. church of consult
[2020-02-20] MEDS: predniSONE 20 MG TAB PO SCH (06:17)
[2020-02-20] MEDS: LEVOTHYROXINE 25 MCG (LEVOTHROID) TAB PO SCH (06:17)
[2020-02-20] MEDS: CATHETER FLUSH 10 ML SYR IV SCH ×2 (06:17→13:25)
--- NOTE | 2020-02-20 06:30 | Pulmonary Consultation ---
History of Present Illness History of Present Illness Date Seen by Provider: Feb 20, 2020 Time Seen by Provider: 06:24 Date of Admission History of Present Illness 74yo with hx of COPD, group 2 pulonary htn, mitral regurgitation presented secondary to worsening SOB over the last wk. Spo02 upon EMS arrival was in the 70's . PT was placed on prednisone taper as an out pt from my office. I am consulted for pulmonary management. Allergies and Home Medications Allergies Coded Allergies: valacyclovir HCl (Verified Allergy, Unknown, RASH, 08/30/14) Home Medications Acetaminophen 500 Mg Tablet, 500 MG PO Q4H PRN for PAIN-MILD, (Reported) Albuterol Sulfate 2.5 Mg/3 Ml Vial.neb, 2.5 MG NEB EVERY 4-6 HOURS PRN for SHORTNESS OF BREATH, (Reported) Albuterol Sulfate 18 Gm Hfa.aer.ad, 2 PUFF INH QID PRN for SHORTNESS OF BREATH, (Reported) Atorvastatin Calcium 20 Mg Tablet, 20 MG PO HS, (Reported) Diltiazem HCl 300 Mg Cap.er.24h, 300 MG PO DAILY, (Reported) Docusate Sodium 100 Mg Capsule, 100 MG PO BID PRN for CONSTIPATION-1ST LINE, (Reported) Ferrous Sulfate 325 Mg Tablet.dr, 325 MG PO DAILY, (Reported) Fluticasone/Umeclidin/Vilanter 1 Each Blst.w.dev, 1 EACH IH DAILY, (Reported) Furosemide 40 Mg Tablet, 40 MG PO 0800,1500, (Reported) Levothyroxine Sodium 25 Mcg Tablet, 25 MCG PO DAILY, (Reported) Multivitamin 1 Each Tablet, 1 TAB PO DAILY, (Reported) [place]-3 Fatty Acids/Fish Oil 1 Each Capsule, 1,000 MG PO DAILY, (Reported) Pantoprazole Sodium 40 Mg Tablet.dr, 40 MG PO 1800, (Reported) Potassium Chloride 20 Meq Tab.er.prt, 20 MEQ PO BID, (Reported) Rivaroxaban 20 Mg Tablet, 20 MG PO 1800, (Reported) Sildenafil Citrate 20 Mg Tablet, 20 MG PO TID, (Reported) Sodium Chloride 44 Ml Simms, 1-2 SPRAYS NS TID PRN for DRY NOSE, (Reported) Sodium Chloride/Aloe Vera 22 Ml Simms, 1 SPRAY NA BID PRN for DRY NOSE, (Reported) Past Lapaxmq-Ixoxeo-Vwwrau Hx Past Med/Social Hx: Reviewed Nursing Past Med/Soc Hx Patient Social History Alcohol Use: Denies Use Recreational Drug Use: No Smoking Status: Former Smoker Former Smoker, Quit: December 02, 1999 2nd Hand Smoke Exposure: No Recent Foreign Travel: No Contact w/Someone Who Travel: No Recent Infectious Disease Expo: No Recent Hopitalizations: No Physical Abuse: No Sexual Abuse: No Mistreated: No Fear: No Immunizations Up To Date Tetanus Booster (TDap): Less than 5yrs PED Vaccines UTD: Yes Date of Pneumonia Vaccine: May 03, 2019 Date of Influenza Vaccine: May 30, 2019 Seasonal Allergies Seasonal Allergies: No Past Medical History Surgeries: Yes (t&a, cataract removal, lumpectomy, R cartoid stent) Adenoidectomy, Cardiac, Eye Surgery, Tonsillectomy, Vascular Surgery Respiratory: Yes (PULMONARY HTN; CONTINUOUS HOME O2 5L/NC IN DAY, 6L/NC AT NIGHT ) COPD, Emphysema Currently Using CPAP: No Currently Using BIPAP: No Cardiac: Yes (CHF, RAYNAUD'S,CARDIAC CATH--NO INTERVENTION,RIGHT CAROTID STENT) Atrial Fibrillation, Chronic Edema/Swelling, High Cholesterol, Hypertension, Peripheral Vascular Neurological: No Reproductive Disorders: No Female Reproductive Disorders: Denies Sexually Transmitted Disease: No HIV/AIDS: No Genitourinary: No UTI-Chronic Gastrointestinal: Yes Gastroesophageal Reflux Musculoskeletal: Yes (RAYNAUD'S ) Arthritis Endocrine: Yes Hypothyroidsim Cataract Loss of Vision: Bilateral Hearing Impairment: Denies Cancer: No Psychosocial: No Integumentary: Yes Blood Disorders: Yes (ANEMIA--) Adverse Reaction/Blood Tranf: No Family Medical History A BLOOD DISEASE 19 FATHER Blood disease Diabetes mellitus G8 BROTHER (BORDERLINE DIABETIC) Hypertension 19 FATHER Psychosocial problem G8 BROTHER (MENTAL RETARDATION) Respiratory disorder 19 MOTHER (COPD) G8 BROTHER (COPD) COPD Review of Systems Time Seen by Provider: 06:41 Sepsis Event Evaluation Height, Weight, BMI Height: 5'6.00" Weight: 144lbs. 1.0oz. 65.417707hh; 22.66 BMI Method:Stated Exam Exam Vital Signs Date Time Temp Pulse Resp B/P (MAP) Pulse Ox O2 Delivery O2 Flow Rate FiO2 02/20/20 04:00 36.3 91 21 104/66 (79) 100 Vapotherm 20.00 50.00 02/20/20 02:59 93 Vapotherm 30.00 60 02/20/20 01:00 76 02/20/20 00:00 36.8 85 21 95/52 (66) 100 Vapotherm 20.00 50.00 02/19/20 22:10 96 Vapotherm 30.00 60 02/19/20 20:22 94 120/66 (84) Vapotherm 20.00 50.00 02/19/20 20:20 Vapotherm 20.00 50 02/19/20 19:48 36.3 107 20 109/72 (84) 98 Vapotherm 20.00 50.00 02/19/20 19:00 110 02/19/20 18:00 96 Vapotherm 30.00 60 02/19/20 15:30 98 Vapotherm 30.00 55 02/19/20 15:30 36.6 75 20 102/67 (79) 98 Vapotherm 20.00 60.00 02/19/20 13:13 111 02/19/20 12:00 36.6 71 20 104/64 (77) 99 Vapotherm 25.00 60.00 02/19/20 09:00 95 Vapotherm 20.00 60 02/19/20 08:20 92 Vapotherm 20.00 60 02/19/20 08:00 36.8 84 20 99/64 (76) 96 Vapotherm 25.00 60.00 02/19/20 07:01 89 I & O 02/20/20 07:00 Intake Total 2465 ml Output Total 4150 ml Balance -1685 ml Height & Weight Height: 5'6.00" Weight: 144lbs. 1.0oz. 65.014296ds; 22.66 BMI Method:Stated General Appearance: Chronically ill, Mild Distress HEENT: Normal ENT Inspection Neck: Non Tender, Supple Respiratory: Lungs Clear, Normal Breath Sounds, No Accessory Muscle Use, No Respiratory Distress Cardiovascular: Regular Rate, Rhythm, No Edema, No Gallop Capillary Refill: Less Than 3 Seconds Gastrointestinal: non tender, soft Extremity: Non Tender, No Pedal Edema Neurologic/Psychiatric: Alert, Oriented x3, No Motor/Sensory Deficits, Normal Mood/Affect Skin: Normal Color, Warm/Dry Lymphatic: No Adenopathy Assessment/Plan Assessment/Plan Acute respiratory distress Currently on Vapotherm - titrate oxygen down -Trial pt to NC -COVID is negative Severe oxygen dependent COPDAE -SVNS, add advair -start prednisone taper Pulmonary edema -repeat CXR -Repeat echo Afib hx Hypothyroid -Synthroid Group 2 Pulmonary hypertension -Lasix, oxygen -Pt has been on Revatio as out pt -Monitor - Advanced diastolic dysfunction EF 50-55% -last Echo shows-- ejection fraction 50-55 percent, dilated left atrium, moderate severe MR, PA pressure 70 mmHg Peripheral vascular disease AMBROSIO KUMAR DO Feb 20, 2020 06:30
--- NOTE | 2020-02-20 06:59 | NUR ---
0630-this rn received call from icu staff informing this rn that pt heart rate is getting up around 170's-pt is currently in afib-pt was ambulating to the chair. 0645-pt hr resting [id number] in afib according to icu staff this rn notified dr. hobson of this hr increase with ambulation no new orders at this time.
[2020-02-20] MEDS ORDERED: predniSONE 20 MG TAB PO SCH (07:00)
[2020-02-20] MEDS: VILANTEROL IH SCH (07:08)
[2020-02-20] MEDS: UMECLIDINIUM IH SCH (07:08)
[2020-02-20] MEDS: FLUTICASONE IH SCH (07:08)
[2020-02-20 07:30] VITALS: BP 113/73
[2020-02-20] MEDS ORDERED: ADVAIR HFA 115/21 MCG INHALER 8 GM IH SCH (08:00)
[2020-02-20] MEDS: SILDENAFIL 20 MG (REVATIO) TAB NON-FORMULARY PO SCH ×2 (08:13→13:24)
[2020-02-20] MEDS: FUROSEMIDE 40 MG (LASIX) TAB PO SCH ×2 (08:13→15:23)
[2020-02-20] MEDS: MULTIVIT W/MINERALS TAB (THERAGRAN M) PO SCH (08:15)
[2020-02-20] MEDS: KCL 20 MEQ TAB (K-DUR) PO SCH ×2 (08:15→18:01)
[2020-02-20] MEDS: FERROUS SULF 325 MG (IRON) TAB PO SCH (08:15)
[2020-02-20] MEDS: OMEGA 3 (FISH OIL) 1000 MG CAP PO SCH (08:15)
[2020-02-20] MEDS ORDERED: predniSONE 10 MG TAB PO SCH (09:00)
[2020-02-20] MEDS ORDERED: LEVO50TA6 PO (09:47)
[2020-02-20] MEDS ORDERED: MONT10TA26 PO (09:47)
[2020-02-20] MEDS ORDERED: METO50TA7 PO (09:50)
[2020-02-20] MEDS ORDERED: DOCU100C37 PO (09:50)
--- NOTE | 2020-02-20 10:02 | NUR ---
CM/SS visited with the patient for discharge planning. The patient reports she is feeling better today and is hoping to be able to go home. She states that her baseline oxygen is 4L NC during the day and 6L NC at night. The patient states that her is her primary caregiver when needed. DME: The patient uses [employer] for her oxygen. The patient does have a wheelchair, walker, and commode; however, she reports they purchased them, unsure if it's from DME. Home Health: The patient reports she has never had home health. CM/SS discussed how she was doing at home at her base line. She states that she is doing fine and does not want assistance at this time. The patient's reports that she could benefit from having home health for bathing. The patient's asked what the process was for setting up home health after leaving the hospital if it's needed. CM/SS discussed the process. They verbalized understanding. The patient was very adamant that she did not need home health at this time. CM/SS will continue to follow for discharge planning.
[2020-02-20] MEDS: RT-ALBUTEROL/IPRATROPIUM 3 ML (DUONEB) VIAL INH SCH ×2 (10:15→14:44)
--- NOTE | 2020-02-20 10:16 | NUR ---
SPOKE WITH THE PT AND WENT THRU THE EXT MED HISTORY TO COMPLETE THE MED REC PT COULDNT REMEMBER THE NAMES OF HER MEDICATIONS BUT WHEN I SAID THE NAMES ON THE EXT MED HISTORY SHE WAS ABLE TO RECALL AND TELL ME HOW/WHEN SHE TAKES THEM LEVOTHYROXINE: 25MCG WAS LISTED ON THE MED REC FROM A PREVIOUS VISIT AND IT WAS ORDERED OVER THE WEEKEND- 50MCG SHOWS ON THE EXT MED HISTORY THE MOST RECENT STRENGTH AND PT AGREED SHE IS NOW ON THE HIGHER STRENGTH. I UPDATED THE MED REC TO REFLECT THAT CHANGE AND ALSO LET THE PHARMACIST AMMON KNOW OTC MEDS: TYLENOL DOCUSATE [employer] FISH OIL AYR MIST AND GEL
[2020-02-20 11:10] VITALS: BP 114/76
[2020-02-20] MEDS ORDERED: PRED10TA22 PO (12:47)
--- NOTE | 2020-02-20 13:48 | NUR ---
RD ASSESSMENT PMHx: COPD; afib; hypercholesterolemia; HTN; chronic-UTI; GERD; hypothyroidism PT INTERACTION: Pt was awake and very pleasant during nutrition assessment. Pt states current appetite is "so-so" and has been this way since admit. Note avg PO intake 50-75% x2d, per chart review. Pt states following a low-CHO/low-fat/low-Na diet at home, and has no issues with chewing/swallowing food. Pt states no recent issues with nausea, vomiting, or constipation. Pt states some recent issue with diarrhea. Note last BM was 02/18, and pt currently on bowel regimen of colace PRN, per chart review. Pt states no recent wt changes. Note unable to determine recent wt hx, per chart review. ABNORMAL NUTRITION-RELATED LAB VALUES LOW: HIGH: glu 143 Est. kcal needs: 1500 kcal | 25 kcal/kg Est. Pro needs: 72 g Pro | 1.2 g Pro/kg PES STATEMENT: Inadequate oral intake (NI-2.1) related to loss of appetite | diarrhea as evidenced by pt interview | avg PO intake 50-75% x2d INTERVENTION: Continue with current diet order of 2000mg Na diet. Continue with current supplementation order of Ensure Enlive with meals TID, for increased kcal intake. Provides 350 kcal and 13 g Pro per serving. Would recommend DC supplementation order when avg PO intake >75%. Encouraged pt to eat when able. Will continue to follow and reassess as pt needs, intake, and status change. MONITOR/EVALUATE: PO Intake; Plan of Care; Hydration Status; Weight Status; Lab Values Lauren Valdez, MS, RD, LD
[2020-02-20 15:20] VITALS: BP 128/76
[2020-02-20] MEDS: RIVAROXABAN 20 MG TABLET (XARELTO) PO SCH (18:01)
[2020-02-20] MEDS: PANTOPRAZOLE 40 MG (PROTONIX) TAB PO SCH (18:01)
--- NOTE | 2020-02-20 18:18 | Physician Query Clarification ---
"Physician Query-General Query to Physician: The medical record reflects the following clinical scenario: History/Risk factors: Severe COPD, Pulmonary HTN, Oxygen dependent Clinical Findings: O2 sats dropping to 70-80%, RR 21 to 38, SOB, /unable to catch her breath Treatment: Vapotherm, O2 up to 60%, Lasix, Breathing Rx, IV steroids, Question: Do you agree with the impression of Acute Respiratory Failure with Hypoxia per Dr. Dom Gallardo ? If you agree, please document in Progress Notes or Discharge Summary. 1. Yes; will document Acute Respiratory Failure with Hypoxia Present On Admission in the Progress Notes 2. No; will continue to document Hypoxia secondary to COPD in the Progress Notes 3. Other; will document explanation of clinical findings 4. Clinically undetermined; no explanation for clinical findings Please remember a lack of response to the above will prompt a phone page by CDI/coding staff. In responding to this query, please exercise your independent professional judgment. The purpose of this communication is to more accurately reflect the complexity of your patients condition. The fact that a question is asked does not imply that any particular answer is desired or expected. Thank you for timely response to this clarification. Katia Larry, MSN, RN RN Specialist-Clinical Doc Improvement CD -Health Info Mgmt Operations [address] [facility] t: [phone] | f: [phone] If you are unable to reach me at my extension, I may be working from home. Please contact me at [phone] PHYSICIAN RESPONSE: Based on the clinical findings in the record, please respond to the query above on this document as an addendum. Physician Response: Physician Response yes If you have questions please contact: Pulp Mill Operator: Ext: Thank you for your time and cooperation. Clinical Transportation Maintenance Supervisor/Pulp Mill Operator This is a permanent part of the medical record KATIA LARRY Feb 20, 2020 18:18 RORY SOLOMON MD Feb 22, 2020 10:32 GREG REEVES MD Feb 25, 2020 13:20"
[2020-02-20 18:55] VITALS: BP 128/76
--- NOTE | 2020-02-20 20:20 | Discharge Summary ---
Discharge Summary Hospital Course Was the Problem List Reviewed?: Yes Problems/Dx: (1) Acute on chronic respiratory failure with hypoxia (2) COPD (chronic obstructive pulmonary disease) Status: Acute Qualifiers: Qualified Codes: J44.1 - Chronic obstructive pulmonary disease with (acute) exacerbation Hospital Course Date of Admission: Feb 17, 2020 at 17:50 Admission Diagnosis : Acute on chronic respiratory failure with hypoxia Family Physician/Provider: Anju Stanford MD Date of Discharge: 02/20/20 Discharge Diagnosis: Acute on chronic respiratory failure with hypoxia due to acute COPD exacerbation Hospital Course: Anni Khan is a 74-year-old female who was admitted with acute on chronic respiratory failure with hypoxia due to acute COPD exacerbation. She was treated with steroids and inhalers and improved. She required high flow oxygen which was decreased to her home levels of 4 L at rest. She was discharged home in stable condition. She will complete a course of prednisone. She should follow-up with her primary care physician in about a week. Labs and Pending Lab Test: Laboratory Tests 02/20/20 07:07: Lactic Acid Level 1.08, B-Type Natriuretic Peptide 943.2H Microbiology 02/17/20 MRSA Screen - Final, Complete MRSA not isolated 02/17/20 Blood Culture - Preliminary, Resulted No growth Home Meds Active Prednisone 10 Mg Tab.ds.pk 10 Mg PO DAILY Take 6 tabs(60mg)daily,decrease by 1 tab(10mg)every other day. Reported Metoprolol Succinate 50 Mg Tab.er.24h 50 Mg PO DAILY Docusate Sodium 100 Mg Capsule 100 Mg PO DAILY PRN Levothyroxine Sodium 50 Mcg Tablet 50 Mcg PO DAILY Montelukast Sodium 10 Mg Tablet 10 Mg PO HS Ferrous Sulfate 325 Mg Tablet.dr 325 Mg PO DAILY Trelegy Ellipta 100-62.5-25 (Fluticasone/Umeclidin/Vilanter) 1 Each Blst.w.dev 1 Each IH DAILY Ventolin Hfa (Albuterol Sulfate) 18 Gm Hfa.aer.ad 2 Puff INH QID PRN Furosemide 40 Mg Tablet 40 Mg PO 0700,1400 Potassium Chloride 20 Meq Tab.er.prt 20 Meq PO 0700,1400 Diltiazem 24Hr ER (Diltiazem HCl) 300 Mg Cap.er.24h 300 Mg PO DAILY Saline Mist (Sodium Chloride) 44 Ml Joaquin 1-2 Sprays NS TID PRN [place] Saline Nasal Gel Joaquin (Sodium Chloride/Aloe Vera) 22 Ml Joaquin 1 Joaquin NA BID PRN Multivitamins (Multivitamin) 1 Each Tablet 1 Tab PO DAILY Acetaminophen Extra Strength (Acetaminophen) 500 Mg Tablet 500 Mg PO Q4H PRN Fish Oil 1,000 mg Softgel ([place]-3 Fatty Acids/Fish Oil) 1 Each Capsule 1,000 Mg PO DAILY Revatio (Sildenafil Citrate) 20 Mg Tablet 20 Mg PO TID Albuterol Sulfate 2.5 Mg/3 Ml Vial.neb 2.5 Mg NEB EVERY 4-6 HOURS PRN Xarelto Tablet (Rivaroxaban) 20 Mg Tablet 20 Mg PO 1800 Pantoprazole Sodium 40 Mg Tablet.dr 40 Mg PO 1800 Atorvastatin Calcium 20 Mg Tablet 20 Mg PO HS Assessment/Pt Instructions Take medications as prescribed. Complete your prednisone taper. Follow-up with your primary care physician. Discharge Planning: <30 minutes discharge planning Discharge Instructions Discharge Diet: No Restrictions Activity as Tolerated: Yes Discharge Physical Examination Vital Signs Vital Signs Date Time Temp Pulse Resp B/P (MAP) Pulse Ox O2 Delivery O2 Flow Rate FiO2 02/20/20 18:55 36.8 141 22 128/76 90 High Flow N/C 5.00 02/20/20 07:08 50 General Appearance: No Apparent Distress, WD/WN HEENT: PERRL/EOMI, Pharynx Normal Respiratory: Lungs Clear, No Respiratory Distress, Decreased Breath Sounds Cardiovascular: Regular Rate, Rhythm, No Edema, No Murmur Gastrointestinal: Normal Bowel Sounds, Non Tender, Soft Extremity: Normal Inspection, Non Tender, No Pedal Edema Skin: Normal Color, Warm/Dry Neurologic/Psychiatric: Alert, Oriented x3, No Motor/Sensory Deficits, Normal Mood/Affect Allergies: Coded Allergies: valacyclovir HCl (Verified Allergy, Unknown, RASH, 08/30/14) Copy Copies To 1: ANJU STANFORD MD Discharge Summary Date of Admission Feb 17, 2020 at 17:50 Date of Discharge Feb 20, 2020 at 18:58 Discharge Date: Feb 20, 2020 Discharge Time: 18:58 Admission Diagnosis Exacerbation of COPD Discharge Diagnosis (1) COPD (chronic obstructive pulmonary disease) Status: Acute Qualifiers: Qualified Codes: J44.1 - Chronic obstructive pulmonary disease with (acute) exacerbation Clinical Quality Measures DVT/VTE Risk/Contraindication: Risk Factor Score Per Nursin RFS Level Per Nursing on Admit: 4+=Very High GREG REEVES MD Feb 20, 2020 20:20
== END 2020-02-20 18:58 | disposition home or self-care (01) | DRG 189 ==
LOC: EDUNIT# 16:04 → ER 16:06 → ICU 17:50 → 4TH 02-18 10:59
PROVIDERS: ADMIT Family Medicine; ATTEND Family Medicine
DX: J96.21 Acute and chronic respiratory failure with hypoxia (principal); J44.1 Chronic obstructive pulmonary disease with (acute) exacerbation; I48.20 Chronic atrial fibrillation, unspecified; I50.9 Heart failure, unspecified; I27.20 Pulmonary hypertension, unspecified; I73.9 Peripheral vascular disease, unspecified; I34.0 Nonrheumatic mitral (valve) insufficiency
CPT/HCPCS: 36415; 71045; 80053; 82805; 83605; 83735; 83880; 84100; 84145; 84443; 85007; 85027; 85379; 85610; 85730; 86141; 87040; 87081; 87635; 93306; 94640; 96360; 99291

== ENCOUNTER → 2020-03-19 | Outpatient (CLI) | payer MEDICARE ==
[~2020-03-19] MED LIST changes: +DOCU100C37 PO; +LEVO50TA6 PO; +PRED10TA22 PO
--- NOTE | 2020-03-19 14:22 | Diagnostic Imaging Report ---
PROCEDURE: CT chest without contrast. TECHNIQUE: Multiple contiguous axial images were obtained through the chest without the use of intravenous contrast. Auto Exposure Controls were utilized during the CT exam to meet ALARA standards for radiation dose reduction. INDICATION: COPD, emphysema, shortness of air, and pulmonary hypertension. COMPARISON: 03/11/2019. FINDINGS: Changes of centrilobular emphysema are redemonstrated. There are new small left and tiny right pleural effusions, nonloculated. Coarse benign calcified granuloma in the lingular segment of the left upper lobe noted. There are atherosclerotic thoracic vascular calcifications. There is cardiomegaly. Some areas of subpleural scarring in the lung bases mixed in with partial atelectasis chronic. Some calcified hilar and mediastinal lymph nodes on a granulomatous basis noted. IMPRESSION: Centrilobular emphysema. New small pleural effusions. Benign granulomatous disease. Nonaneurysmal atherosclerosis. Cardiomegaly noted. Dictated by: Dictated on workstation # [id number]
== END ==
LOC: RAD 12:47
PROVIDERS: ATTEND Nurse Practitioner Family
DX: J43.2 Centrilobular emphysema (principal); I50.32 Chronic diastolic (congestive) heart failure; I27.23 Pulmonary hypertension due to lung diseases and hypoxia; R91.8 Other nonspecific abnormal finding of lung field; I51.7 Cardiomegaly; J90 Pleural effusion, not elsewhere classified
CPT/HCPCS: 71250

== ENCOUNTER → 2020-08-22 | Outpatient (CLI) | payer MEDICARE ==
[~2020-08-22] MED LIST changes: +ASCO500T75 PO; +CALC-902 PO; +CATHETER FLUSH 10 ML SYR IV PRN; +HOLD METFORMIN - RECEIVED CONTRAST 20 ML VIAL IV SCH; +IOHEXOL 350 MG/ML 100 ML (OMNIPAQUE 350) VIAL IV ONE; +MELA1TAB51 PO; -MELA1TAB8 PO; -MONT10TA26 PO; +MONT10TA97 PO; +NS 100 ML (IVPB) BAG IV ONE; -PANT40TA3 PO; +PANT40TA52 PO; +PRD10T PO
--- NOTE | 2020-08-22 13:36 | Diagnostic Imaging Report ---
EXAMINATION: CT Chest with intravenous contrast. TECHNIQUE: Multiple contiguous axial images were obtained through the chest after the uneventful administration of intravenous contrast. All CT scans use one or more of the following dose optimizing techniques: automated exposure control, MA and/or KvP adjustment based on a patient size and exam type, or iterative reconstruction. HISTORY: COPD, pulmonary hypertension. COMPARISON: 03/19/2020 FINDINGS: There is moderate emphysema with superimposed pulmonary edema as evidenced by septal line thickening and groundglass. There is a small left and tiny right pleural effusion, similar to prior exam. No pneumothorax. No suspicious nodules. There is no axillary or supraclavicular lymphadenopathy. There is a stable 13 mm right lower paratracheal lymph node which is likely reactive. Other prominent mediastinal lymph nodes are also stable and likely reactive. There is dilation of all four cardiac chambers most pronounced in both atria. The inferior vena cava is dilated. There are mild coronary artery calcifications. No pericardial effusion. Aorta is normal in caliber. Limited views of the upper abdomen are unremarkable. There are no suspicious osseous lesions. IMPRESSION: 1. Moderate emphysema with small bilateral pleural effusions and mild pulmonary edema. 2. Dilated heart with severe dilation of both atria. Dictated by: Dictated on workstation # [id number]
--- NOTE | 2020-08-22 15:12 | Diagnostic Imaging Report ---
PROCEDURE: US Venous Lower Ext Solomon. TECHNIQUE: Multiple real-time grayscale images were obtained over the lower extremities in various projections, bilaterally. Additional duplex Doppler and color Doppler images were also obtained. INDICATION: Leg swelling and pain. FINDINGS: Left lower extremity deep venous system shows normal compressibility of normal response to augmentation and Valsalva. Right common femoral, superficial femoral and popliteal veins are also patent and show normal compressibility. There is clot identified in the anterior peroneal vein in the right calf. No other thrombus is seen. IMPRESSION: Thrombus identified in the anterior peroneal vein of the right calf. No other evidence of DVT is identified bilaterally. Dictated by: Dictated on workstation # [id number]
== END ==
LOC: RAD 12:49
PROVIDERS: ATTEND Nurse Practitioner Family
DX: J43.9 Emphysema, unspecified (principal); I82.451 Acute embolism and thrombosis of right peroneal vein; I51.7 Cardiomegaly
CPT/HCPCS: 71260; 93970

== ENCOUNTER 2020-09-24 12:32 | Inpatient (IN) | payer MEDICARE ==
[~2020-09-24] VITALS: Ht 167.7 cm; Wt 53.8 kg
[~2020-09-24 12:32] MED LIST changes: +APIX5TAB PO; -CATHETER FLUSH 10 ML SYR IV PRN; +DILT180C85 PO; -HOLD METFORMIN - RECEIVED CONTRAST 20 ML VIAL IV SCH; -IOHEXOL 350 MG/ML 100 ML (OMNIPAQUE 350) VIAL IV ONE; +LEVO100T PO; +LISI10TA25 PO; +MONT10TA32 PO; -MONT10TA97 PO; -NS 100 ML (IVPB) BAG IV ONE
[2020-09-24] MEDS ORDERED: IOHEXOL 350 MG/ML 100 ML (OMNIPAQUE 350) VIAL IV ONE (15:30)
[2020-09-24] MEDS ORDERED: NS 100 ML (IVPB) BAG IV ONE (15:30)
[2020-09-24] MEDS ORDERED: CATHETER FLUSH 10 ML SYR IV PRN ×2 (15:30→18:45)
[2020-09-24] MEDS ORDERED: HOLD METFORMIN - RECEIVED CONTRAST 20 ML VIAL IV SCH (15:30)
--- NOTE | 2020-09-24 15:32 | ED General ---
General Chief Complaint: General Problems/Pain Stated Complaint: SOB, INCREASED O2 DEMAND Nursing Triage Note: pt reports checking her o2 level at home 4xdaily per physician. this am and afternoon, o2 has been 90-91%. Normal range is 93-98%. Pt wears home o2 5l/day and 6l/night. pt currently wearing 6l nc. pt denies sob or any resp distress. Nursing Sepsis Screen: No Definite Risk Source of Information: Patient Exam Limitations: No Limitations History of Present Illness Date Seen by Provider: Sep 24, 2020 Time Seen by Provider: 15:11 Initial Comments This is a 75-year-old female who presents to the ER with increasing shortness of breath over the past week. She normally wears 5 L of oxygen via nasal cannula the daytime in 6 L at bedtime, However, this past week she has had increase her daytime oxygen up to 7 L/m. This is her only complaint. She denies fevers, chills, cough, chest pain, nausea, vomiting, diarrhea, abdominal pain. Allergies and Home Medications Allergies Coded Allergies: valacyclovir HCl (Verified Allergy, Unknown, RASH, 08/30/14) Home Medications Acetaminophen 500 Mg Tablet, 500 MG PO Q4H PRN for PAIN-MILD, (Reported) Albuterol Sulfate 2.5 Mg/3 Ml Vial.neb, 2.5 MG NEB EVERY 4-6 HOURS PRN for SHORTNESS OF BREATH, (Reported) Albuterol Sulfate 18 Gm Hfa.aer.ad, 2 PUFF INH QID PRN for SHORTNESS OF BREATH, (Reported) Apixaban 5 Mg Tablet, 5 MG PO BID Prescribed by: ANAT REBOLLAR on 08/31/20 1155 Atorvastatin Calcium 20 Mg Tablet, 20 MG PO HS, (Reported) Calcium Carbonate/Vitamin D3 1 Each Tablet, 2 EACH PO DAILY, (Reported) Diltiazem HCl 180 Mg Cap.er.24h, 360 MG PO DAILY Prescribed by: ANAT REBOLLAR on 08/31/20 1155 Docusate Sodium 100 Mg Capsule, 100-200 MG PO DAILY PRN for CONSTIPATION-1ST LINE, (Reported) Ferrous Sulfate 325 Mg Tablet.dr, 325 MG PO DAILY, (Reported) Fluticasone/Umeclidin/Vilanter 1 Each Blst.w.dev, 1 EACH IH DAILY, (Reported) Furosemide 40 Mg Tablet, 40 MG PO 0700,1400, (Reported) Levothyroxine Sodium 100 Mcg Tablet, 100 MCG PO DAILY@0630 Prescribed by: ANAT REBOLLAR on 08/31/20 1155 Metoprolol Succinate 50 Mg Tab.er.24h, 50 MG PO DAILY, (Reported) Montelukast Sodium 10 Mg Tablet, 10 MG PO HS, (Reported) Multivitamin 1 Each Tablet, 1 TAB PO DAILY, (Reported) [place]-3 Fatty Acids/Fish Oil 1 Each Capsule, 1,000 MG PO DAILY, (Reported) Pantoprazole Sodium 40 Mg Tablet.dr, 40 MG PO 1700 BEFORE MEAL, (Reported) Prednisone 10 Mg Tab, 10 MG PO DAILY TAKES 10MG +5MG TO EQAUL 15MG DAILY Prescribed by: ANAT REBOLLAR on 08/31/20 1155 Prednisone 10 Mg Tab, 10 MG PO DAILY TAKES 10MG +5MG TO EQAUL 15MG DAILY Prescribed by: ANAT REBOLLAR on 08/31/20 1155 Sildenafil Citrate 20 Mg Tablet, 20 MG PO TID, (Reported) Sodium Chloride 44 Ml [place], 1-2 SPRAYS NS TID PRN for DRY NOSE, (Reported) Sodium Chloride/Aloe Vera 22 Ml [place], 1 SPRAY NA BID PRN for DRY NOSE, (Rep orted) Patient Home Medication List Home Medication List Reviewed: Yes Review of Systems Review of Systems Constitutional: no symptoms reported EENTM: no symptoms reported Respiratory: see HPI Cardiovascular: see HPI Gastrointestinal: no symptoms reported Genitourinary: no symptoms reported Musculoskeletal: no symptoms reported Skin: no symptoms reported Psychiatric/Neurological: No Symptoms Reported Hematologic/Lymphatic: No Symptoms Reported Immunological/Allergic: no symptoms reported Past Epvtkhm-Mvjvnb-Xjjspo Hx Patient Social History Alcohol Use: Rarely Uses Smoking Status: Former Smoker Former Smoker, Quit: December 02, 1999 2nd Hand Smoke Exposure: No Recent Infectious Disease Expo: No Recent Hopitalizations: No Immunizations Up To Date Tetanus Booster (TDap): Less than 5yrs PED Vaccines UTD: Yes Date of Pneumonia Vaccine: May 03, 2019 Date of Influenza Vaccine: Apr 17, 2020 Seasonal Allergies Seasonal Allergies: No Past Medical History Surgeries: Yes (t&a, cataract removal, lumpectomy, R cartoid stent) Adenoidectomy, Cardiac, Eye Surgery, Tonsillectomy, Vascular Surgery Respiratory: Yes (PULMONARY HTN; CONTINUOUS HOME O2 5L/NC IN DAY, 6L/NC AT NIGHT ) COPD, Emphysema Currently Using CPAP: No Currently Using BIPAP: No Cardiac: Yes (CHF, RAYNAUD'S,CARDIAC CATH--NO INTERVENTION,RIGHT CAROTID STENT) Atrial Fibrillation, Chronic Edema/Swelling, High Cholesterol, Hypertension, Peripheral Vascular Neurological: No Reproductive Disorders: No Female Reproductive Disorders: Denies Sexually Transmitted Disease: No HIV/AIDS: No Genitourinary: No UTI-Chronic Gastrointestinal: Yes Gastroesophageal Reflux Musculoskeletal: Yes (RAYNAUD'S ) Arthritis Endocrine: Yes Hypothyroidsim Cataract Loss of Vision: Bilateral Hearing Impairment: Denies Cancer: No Psychosocial: No Integumentary: Yes Blood Disorders: Yes (ANEMIA--) Adverse Reaction/Blood Tranf: No Family Medical History A BLOOD DISEASE 19 FATHER Blood disease Diabetes mellitus G8 BROTHER (BORDERLINE DIABETIC) Hypertension 19 FATHER Psychosocial problem G8 BROTHER (MENTAL RETARDATION) Respiratory disorder 19 MOTHER (COPD) G8 BROTHER (COPD) COPD Physical Exam Vital Signs Vital Signs - First Documented 09/24/20 12:55 Temp 36.6 Pulse 115 Resp 14 B/P (MAP) 115/69 (84) Pulse Ox 97 O2 Delivery Nasal Cannula O2 Flow Rate 6.00 Capillary Refill : Less Than 3 Seconds Height, Weight, BMI Height: 5'6.00" Weight: 144lbs. 1.0oz. 65.148120an; 21.00 BMI Method:Stated General Appearance: No Apparent Distress, WD/WN Eyes: Bilateral Eye Normal Inspection, Bilateral Eye PERRL, Bilateral Eye EOMI HEENT: PERRL/EOMI, Normal ENT Inspection, Pharynx Normal, Moist Mucous Membranes Neck: Full Range of Motion, Non Tender, Supple Respiratory: Chest Non Tender, No Accessory Muscle Use, No Respiratory Distress, Decreased Breath Sounds Cardiovascular: No Gallop, Normal Peripheral Pulses, Systolic Murmur, Irregularly Irregular, Other (bilateral pedal edema ) Gastrointestinal: Normal Bowel Sounds, Non Tender, Soft Back: Normal Inspection Extremity: Normal Capillary Refill, Normal Inspection, Normal Range of Motion, No Calf Tenderness Neurologic/Psychiatric: Alert, Oriented x3 Skin: Normal Color, Warm/Dry Focused Exam Lactate Level 09/24/20 15:45: Lactic Acid Level 0.95 Lactic Acid Level Laboratory Tests Test 09/24/20 15:45 Lactic Acid Level 0.95 MMOL/L (0.50-2.00) Progress/Results/Core Measures Suspected Sepsis Recent Fever Within 48 Hours: No Infection Criteria Present: None New/Unexplained Altered Menta: No Sepsis Screen: No Definite Risk SIRS Temperature: Pulse: 115 Respiratory Rate: 14 Laboratory Tests 09/24/20 14:20: White Blood Count 12.5H Blood Pressure 115 /69 Mean: 84 09/24/20 15:45: Lactic Acid Level 0.95 Laboratory Tests 09/24/20 14:20: Creatinine 1.30, INR Comment 2.3H, Platelet Count 287, Total Bilirubin 1.5H Results/Orders Lab Results Laboratory Tests Test 09/24/20 14:20 09/24/20 15:35 09/24/20 15:45 09/24/20 16:12 Range/Units White Blood Count 12.5 H 4.3-11.0 10^3/uL Red Blood Count 4.11 3.80-5.11 10^6/uL Hemoglobin 13.6 11.5-16.0 g/dL Hematocrit 39 35-52 % Mean Corpuscular Volume 96 80-99 fL Mean Corpuscular Hemoglobin 33 25-34 pg Mean Corpuscular Hemoglobin Concent 35 32-36 g/dL Red Cell Distribution Width 14.2 10.0-14.5 % Platelet Count 287 130-400 10^3/uL Mean Platelet Volume 11.2 9.0-12.2 fL Immature Granulocyte % (Auto) 1 % Neutrophils (%) (Auto) 90 H 42-75 % Lymphocytes (%) (Auto) 3 L 12-44 % Monocytes (%) (Auto) 6 0-12 % Eosinophils (%) (Auto) 0 0-10 % Basophils (%) (Auto) 0 0-10 % Neutrophils # (Auto) 11.2 H 1.8-7.8 10^3/uL Lymphocytes # (Auto) 0.4 L 1.0-4.0 10^3/uL Monocytes # (Auto) 0.8 0.0-1.0 10^3/uL Eosinophils # (Auto) 0.0 0.0-0.3 10^3/uL Basophils # (Auto) 0.0 0.0-0.1 10^3/uL Immature Granulocyte # (Auto) 0.1 0.0-0.1 10^3/uL Neutrophils % (Manual) 88 % Lymphocytes % (Manual) 5 % Monocytes % (Manual) 7 % Toxic Granulation 2+ Blood Morphology Comment NORMAL Prothrombin Time 25.4 H 12.2-14.7 SEC INR Comment 2.3 H 0.8-1.4 Activated Partial Thromboplast Time 40 H 24-35 SEC Sodium Level 132 L 135-145 MMOL/L Potassium Level 3.6 3.6-5.0 MMOL/L Chloride Level 90 L 98-107 MMOL/L Carbon Dioxide Level 26 21-32 MMOL/L Anion Gap 16 H 5-14 MMOL/L Blood Urea Nitrogen 28 H 7-18 MG/DL Creatinine 1.30 0.60-1.30 MG/DL Estimat Glomerular Filtration Rate 40 BUN/Creatinine Ratio 22 Glucose Level 129 H 70-105 MG/DL Calcium Level 8.9 8.5-10.1 MG/DL Corrected Calcium 9.0 8.5-10.1 MG/DL Magnesium Level 1.7 1.6-2.4 MG/DL Total Bilirubin 1.5 H 0.1-1.0 MG/DL Aspartate Amino Transf (AST/SGOT) 26 5-34 U/L Alanine Aminotransferase (ALT/SGPT) 25 0-55 U/L Alkaline Phosphatase 67 40-136 U/L Myoglobin 143.0 H 10.0-92.0 NG/ML Troponin I < 0.028 <0.028 NG/ML B-Type Natriuretic Peptide 953.9 H <100.0 PG/ML Total Protein 6.7 6.4-8.2 GM/DL Albumin 3.9 3.2-4.5 GM/DL Blood Gas Puncture Site LEFT WRIST Blood Gas Patient Temperature 36.6 Arterial Blood pH 7.49 H 7.37-7.43 Arterial Blood Partial Pressure CO2 38 35-45 MMHG Arterial Blood Partial Pressure O2 77 L 79-93 MMHG Arterial Blood HCO3 29 H 23-27 MMOL/L Arterial Blood Total CO2 30.5 21.0-31.0 MMOL/L Arterial Blood Oxygen Saturation 96 94-100 % Arterial Blood Base Excess 5.8 H -2.5-2.5 MMOL/L Wei Test YES-POS Blood Gas Ventilator Setting NO Blood Gas Inspired Oxygen 5 L Lactic Acid Level 0.95 0.50-2.00 MMOL/L Urine Color YELLOW Urine Clarity CLEAR Urine pH 5.5 5-9 Urine Specific [place] 1.010 L 1.016-1.022 Urine Protein NEGATIVE NEGATIVE Urine Glucose (UA) NEGATIVE NEGATIVE Urine Ketones TRACE H NEGATIVE Urine Nitrite NEGATIVE NEGATIVE Urine Bilirubin NEGATIVE NEGATIVE Urine Urobilinogen 1.0 < = 1.0 MG/DL Urine Leukocyte Esterase NEGATIVE NEGATIVE Urine RBC (Auto) NEGATIVE NEGATIVE Urine RBC RARE /HPF Urine WBC NONE /HPF Urine Squamous Epithelial Cells 10-25 H /HPF Urine Crystals NONE /LPF Urine Bacteria TRACE /HPF Urine Casts NONE /LPF Urine Mucus NEGATIVE /LPF Urine Culture Indicated CULTURE PENDING My Orders Orders - MELISSA WANG CADD TECHNICIAN Cbc With Automated Diff (09/24/20 15:24) Magnesium (09/24/20 15:24) Ekg Tracing (09/24/20 15:24) Comprehensive Metabolic Panel (09/24/20 15:24) Myoglobin Serum (09/24/20 15:24) Protime With Inr (09/24/20 15:24) Partial Thromboplastin Time (09/24/20 15:24) O2 (09/24/20 15:24) Monitor-Rhythm Ecg Trace Only (09/24/20 15:24) Ed Iv/Invasive Line Start (09/24/20 15:24) BNP (09/24/20 15:24) Troponin I (09/24/20 15:24) Blood Culture (09/24/20 15:24) Sputum Culture (09/24/20 15:24) Urinalysis (09/24/20 15:24) Urine Culture (09/24/20 15:24) Lactic Acid Analyzer (09/24/20 15:24) Arterial Blood Gas (09/24/20 15:24) Ct Angio Chest W (09/24/20 15:27) Iohexol Injection (Omnipaque 350 Mg/Ml 1 (09/24/20 15:30) Received Contrast (Hold Metformin- Contr (09/24/20 15:30) Sodium Chloride Flush (Catheter Flush Sy (09/24/20 15:30) Ns (Ivpb) (Sodium Chloride 0.9% Ivpb Bag (09/24/20 15:30) Manual Differential (09/24/20 14:20) Ns Iv 500 Ml (Sodium Chloride 0.9%) (09/24/20 16:00) Medications Given in ED Current Medications Medications Dose Ordered Sig/Maira Route Start Time Stop Time Status Last Admin Dose Admin Iohexol 100 ml ONCE ONCE IV 09/24/20 15:30 09/24/20 15:31 DC 09/24/20 16:35 60 ML Sodium Chloride 10 ml NEEDED PRN IV 09/24/20 15:30 09/24/20 18:44 DC 09/24/20 16:35 10 ML Sodium Chloride 100 ml ONCE ONCE IV 09/24/20 15:30 09/24/20 15:31 DC 09/24/20 16:35 80 ML Sodium Chloride 500 ml @ 30 mls/hr [id number] ONCE IV 09/24/20 16:00 09/24/20 18:43 DC 09/24/20 16:46 30 MLS/HR Vital Signs/I&O 09/24/20 09/24/20 12:55 14:20 Temp 36.6 Pulse 115 Resp 14 B/P (MAP) 115/69 (84) Pulse Ox 97 93 O2 Delivery Nasal Cannula Nasal Cannula O2 Flow Rate 6.00 5.00 Capillary Refill : Less Than 3 Seconds Blood Pressure Mean: 84 Progress Note : Progress Note Pt. examined and in no acute distress. Notes that she was admitted on the 08/23/20 through 08/31/20 for DVT of her left lower extremity. States she is currently taking Eliquis for treatment. Will obtain basic and cardiac workup as well as check CTa d/t current DVT and increased need for oxygen. CBC and CMP reviewed. Slight elevation in BUN. Will given NS 500ml bolus d/t history of HF. Remaning labs reviewed and are consistent with exacerbation of her CHF. No diuretic therapy noted on her chart. Discussed case with Dr. Londono, requested to have her updated once a CTA chest results returned. CTa chest shows significant cardiomegaly with bilateral pleural effusion. No pulmonary embolism observed. Updated Dr. Londono, agreeable with admission for CHF. Discussed plan with patient to have her admitted and for diuresis.She notified me that she does take Lasix 40 mg by mouth twice a day however, she had not taken second dose yet today. Updated Dr. Londono. Plan admit to medical unit for acute exacerbation of CHF with cardiology cons ult. ECG Initial ECG Impression Date: Sep 24, 2020 Initial ECG Impression Time: 15:54 Initial ECG Rate: 81 Initial ECG Rhythm: A Fib/Flutter Diagnostic Imaging Diagonstic Imaging: CT Plain Films/CT/US/NM/MRI: chest Comments NAME: DENVER JACOBSON [facility] REC#: [id number] PT STATUS: REG ER : 1945 PHYSICIAN: MELISSA WANG APRN ADMIT DATE: 09/24/20/ER Signed Date of Exam:09/24/20 CT ANGIO CHEST W EXAMINATION: CT angiography of the chest. TECHNIQUE: Contrast enhanced thin section helical images were obtained through the chest with intravenous contrast timed for the optimal opacification of the arterial structures per CTA protocol. Post-processing, reconstructions and interpretation of angiographic images of the vessels was performed. 3D MIP reconstructions were performed and reviewed. All CT scans use one or more of the following dose optimizing techniques: automated exposure control, MA and/or KvP adjustment based on a patient size and exam type, or iterative reconstruction. HISTORY: Shortness of breath, DVT. COMPARISON: 08/27/2020 FINDINGS: There is no pulmonary embolism. There is severe dilation of the heart, particularly the atria. There is moderate pulmonary edema. There are small bilateral pleural effusions, left greater than right. No pneumonia. No pneumothorax. No suspicious nodules. There is no axillary or supraclavicular lymphadenopathy. Mild mediastinal lymphadenopathy is likely reactive. Inferior vena cava is dilated. There are moderate coronary artery calcifications. No pericardial effusion. Aorta is normal in caliber. Limited views of the upper abdomen are unremarkable. There are no suspicious osseous lesions. IMPRESSION: 1. No pulmonary embolism. 2. Severely dilated heart with moderate pulmonary edema and small pleural effusions. Dictated by: Dictated on workstation # [id number] Dict: 09/24/20 1637 Trans: 09/24/20 1720 [facility] [id number] Interpreted by: YANET GIFFORD MD Electronically signed by: YANET GIFFORD MD 09/24/201719 Reviewed: Reviewed by Me Departure Impression Primary Impression: Acute exacerbation of CHF (congestive heart failure) Disposition: ADMITTED INPATIENT Condition: Stable Admissions Decision to Admit Reason: Admit from ER (General) Decision to Admit/Date: Sep 24, 2020 Time/Decision to Admit Time: 17:03 Departure-Patient Inst. Referrals: JONATHAN STANFORD MD (PCP/Family) Primary Care Physician MELISSA WANG APRN Sep 24, 2020 15:32
[2020-09-24 15:40] LABS: ALBUMIN 3.9 GM/DL (3.2-4.5); POTASSIUM 3.6 MMOL/L (3.6-5.0)
[2020-09-24 15:41] LABS: CALCIUM 8.9 MG/DL (8.5-10.1)
[2020-09-24 15:43] LABS: TOTAL PROTEIN 6.7 GM/DL (6.4-8.2)
[2020-09-24 15:44] LABS: BILIRUBIN,TOTAL 1.5 MG/DL (0.1-1.0)
[2020-09-24 15:45] LABS: BASOPHILS % (AUTO) 0 % (0-10); EOSINOPHILS % (AUTO) 0 % (0-10); HEMATOCRIT 39 % (35-52); HEMOGLOBIN 13.6 g/dL (11.5-16.0); LYMPHOCYTES # (AUTO) 0.4 10^3/uL (1.0-4.0); LYMPHOCYTES % (AUTO) 3 % (12-44); MEAN CORPUSCULAR HEMOGLOBIN 33 pg (25-34); MEAN CORPUSCULAR HGB CONC 35 g/dL (32-36); MEAN CORPUSCULAR VOLUME 96 fL (80-99); MEAN PLATELET VOLUME 11.2 fL (9.0-12.2); MONOCYTES # (AUTO) 0.8 10^3/uL (0.0-1.0); MONOCYTES % (AUTO) 6 % (0-12); NEUTROPHILS # (AUTO) 11.2 10^3/uL (1.8-7.8); NEUTROPHILS % (AUTO) 90 % (42-75); PLATELET COUNT 287 10^3/uL (130-400); WHITE BLOOD COUNT 12.5 10^3/uL (4.3-11.0)
[2020-09-24 15:46] LABS: CREATININE SERUM 1.3 MG/DL (0.60-1.30); INR 2.3 (0.8-1.4); PROTHROMBIN TIME PATIENT 25.4 SEC (12.2-14.7)
[2020-09-24 15:49] LABS: MAGNESIUM 1.7 MG/DL (1.6-2.4)
[2020-09-24 15:55] LABS: ABG BASE EXCESS 5.8 MMOL/L (-2.5-2.5); ABG OXYGEN SATURATION 96 % (94-100); ABG PCO2 38 MMHG (35-45); ABG PH 7.49 (7.37-7.43); ABG PO2 77 MMHG (79-93); ABG TCO2 30.5 MMOL/L (21.0-31.0); ALLENS TEST YES-POS; INSPIRED O2 5 L; PATIENT TEMP 36.6; VENTILATOR NO
[2020-09-24] MEDS ORDERED: NS IV 500 ML 500 ML IV ONE (16:00)
[2020-09-24 16:13] LABS: LYMPHOCYTES % (MANUAL) 5 %; MONOCYTES % (MANUAL) 7 %; NEUTROPHILS % (MANUAL) 88 %; RBC MORPH NORMAL; TOXIC GRANULATION/VACUOLAZATIO 2+
[2020-09-24 16:19] LABS: BILIRUBIN,URINE NEGATIVE (NEGATIVE); CLARITY,URINE CLEAR; COLOR,URINE YELLOW; GLUCOSE, URINE (UA) NEGATIVE (NEGATIVE); KETONES,URINE TRACE (NEGATIVE); LEUKOCYTE ESTERASE ,URINE NEGATIVE (NEGATIVE); NITRITE,URINE NEGATIVE (NEGATIVE); PH,URINE 5.5 (5-9); PROTEIN,URINE NEGATIVE (NEGATIVE)
[2020-09-24 16:25] LABS: BACTERIA,URINE TRACE /HPF; RBC,URINE RARE /HPF
--- NOTE | 2020-09-24 16:42 | Diagnostic Imaging Report ---
EXAMINATION: CT angiography of the chest. TECHNIQUE: Contrast enhanced thin section helical images were obtained through the chest with intravenous contrast timed for the optimal opacification of the arterial structures per CTA protocol. Post-processing, reconstructions and interpretation of angiographic images of the vessels was performed. 3D MIP reconstructions were performed and reviewed. All CT scans use one or more of the following dose optimizing techniques: automated exposure control, MA and/or KvP adjustment based on a patient size and exam type, or iterative reconstruction. HISTORY: Shortness of breath, DVT. COMPARISON: 08/27/2020 FINDINGS: There is no pulmonary embolism. There is severe dilation of the heart, particularly the atria. There is moderate pulmonary edema. There are small bilateral pleural effusions, left greater than right. No pneumonia. No pneumothorax. No suspicious nodules. There is no axillary or supraclavicular lymphadenopathy. Mild mediastinal lymphadenopathy is likely reactive. Inferior vena cava is dilated. There are moderate coronary artery calcifications. No pericardial effusion. Aorta is normal in caliber. Limited views of the upper abdomen are unremarkable. There are no suspicious osseous lesions. IMPRESSION: 1. No pulmonary embolism. 2. Severely dilated heart with moderate pulmonary edema and small pleural effusions. Dictated by: Dictated on workstation # [id number]
[2020-09-24] MEDS ORDERED: NS IV 1000 ML 1,000 ML IV SCH (18:45)
[2020-09-24] MEDS ORDERED: ONDANSETRON 4 MG/2 ML (SDV) Z0FRAN IV PRN (18:45)
[2020-09-24] MEDS ORDERED: ACETAMINOPHEN 325 MG TABLET PO PRN (18:45)
[2020-09-24 19:09] VITALS: BP 107/57
[2020-09-24 20:20] VITALS: BP 14/115
[2020-09-24] MEDS ORDERED: RT-ALBUTEROL/IPRATROPIUM 3 ML (DUONEB) VIAL INH PRN (20:45)
[2020-09-24] MEDS: RT-ALBUTEROL/IPRATROPIUM 3 ML (DUONEB) VIAL INH SCH (21:37)
[2020-09-24 23:17] VITALS: BP 105/56
[2020-09-25] VITALS (15 sets, daily range): BP systolic 94–129; BP diastolic 58–88
[2020-09-25] MEDS ORDERED: FUROSEMIDE 40 MG/4 ML INJ (LASIX) ONE (01:25)
[2020-09-25] MEDS: RT-ALBUTEROL/IPRATROPIUM 3 ML (DUONEB) VIAL INH SCH ×5 (01:39→17:56)
[2020-09-25 05:55] LABS: ALBUMIN 3.3 GM/DL (3.2-4.5); POTASSIUM 3.4 MMOL/L (3.6-5.0)
[2020-09-25 05:56] LABS: CALCIUM 8.3 MG/DL (8.5-10.1)
[2020-09-25 05:57] LABS: BASOPHILS % (AUTO) 0 % (0-10); EOSINOPHILS # (AUTO) 0.1 10^3/uL (0.0-0.3); EOSINOPHILS % (AUTO) 1 % (0-10); HEMATOCRIT 38 % (35-52); HEMOGLOBIN 12.8 g/dL (11.5-16.0); LYMPHOCYTES # (AUTO) 0.6 10^3/uL (1.0-4.0); LYMPHOCYTES % (AUTO) 6 % (12-44); MEAN CORPUSCULAR HEMOGLOBIN 33 pg (25-34); MEAN CORPUSCULAR HGB CONC 34 g/dL (32-36); MEAN CORPUSCULAR VOLUME 98 fL (80-99); MEAN PLATELET VOLUME 10.8 fL (9.0-12.2); MONOCYTES # (AUTO) 1.1 10^3/uL (0.0-1.0); MONOCYTES % (AUTO) 12 % (0-12); NEUTROPHILS # (AUTO) 7.3 10^3/uL (1.8-7.8); NEUTROPHILS % (AUTO) 80 % (42-75); PLATELET COUNT 219 10^3/uL (130-400); TOTAL PROTEIN 5.7 GM/DL (6.4-8.2); WHITE BLOOD COUNT 9.2 10^3/uL (4.3-11.0)
[2020-09-25 05:59] LABS: BILIRUBIN,TOTAL 0.9 MG/DL (0.1-1.0)
[2020-09-25 06:01] LABS: CREATININE SERUM 1.1 MG/DL (0.60-1.30)
[2020-09-25] MEDS ORDERED: FUROSEMIDE 40 MG/4 ML INJ (LASIX) IV SCH ×2 (07:00→18:45)
--- NOTE | 2020-09-25 10:27 | Consultation-Cardiology ---
HPI-Cardiology Cardiology Consultation Date of Consultation 09/25/20 Date of Admission Time Seen by Provider: 08:45 Indication: AE CHF HPI Patient is a 75 y/o female with history of COPD, severe HTP, diastolic dysfunction. Presented to the ER with complaints of weight gain and increased dyspnea over the past week, requiring more O2 at home. Denies any chest pain, dizziness or lightheadedness. Home Medications & Allergies Allergies: Coded Allergies: valacyclovir HCl (Verified Allergy, Unknown, RASH, 08/30/14) Home Medication List Reviewed: Yes KEU-Urcqac-Xbvrlt Hx Patient Social History Marital Status: Recreational Drug Use: No Smoking Status: Never a Smoker Former smoker/When Quit: Nov 14, 1999 2nd Hand Smoke Exposure: No Recent Hopitalizations: No Have you traveled recently?: No Alcohol Use?: No Immunizations Up To Date Tetanus Booster (TDap): Less than 5yrs Date of Pneumonia Vaccine: May 03, 2019 Date of Influenza Vaccine: May 03, 2020 Past Medical History HTP, CHF, HTN Family Medical History Significant Family History: COPD Family History: A BLOOD DISEASE 19 FATHER Blood disease Diabetes mellitus G8 BROTHER (BORDERLINE DIABETIC) Hypertension 19 FATHER Psychosocial problem G8 BROTHER (MENTAL RETARDATION) Respiratory disorder 19 MOTHER (COPD) G8 BROTHER (COPD) Review of Systems-General Review of Systems Constitutional: no symptoms reported EENTM: no symptoms reported Respiratory: see HPI; No cough; dyspnea on exertion, short of breath Cardiovascular: see HPI; No chest pain, No edema, No Hx of Intervention, No p alpitations, No syncope Gastrointestinal: no symptoms reported; No abdominal pain, No constipation Genitourinary: no symptoms reported Musculoskeletal: no symptoms reported Skin: no symptoms reported Psychiatric/Neurological: No Symptoms Reported Reviewed Test Results Reviewed Test Results Lab Laboratory Tests 09/24/20 14:20: White Blood Count 12.5H, Red Blood Count 4.11, Hemoglobin 13.6, Hematocrit 39, Mean Corpuscular Volume 96, Mean Corpuscular Hemoglobin 33, Mean Corpuscular H emoglobin Concent 35, Red Cell Distribution Width 14.2, Platelet Count 287, Mean Platelet Volume 11.2, Immature Granulocyte % (Auto) 1, Neutrophils (%) (Auto) 90H, Lymphocytes (%) (Auto) 3L, Monocytes (%) (Auto) 6, Eosinophils (%) (Auto) 0, Basophils (%) (Auto) 0, Neutrophils # (Auto) 11.2H, Lymphocytes # (Auto) 0.4L , Monocytes # (Auto) 0.8, Eosinophils # (Auto) 0.0, Basophils # (Auto) 0.0, Immature Granulocyte # (Auto) 0.1, Neutrophils % (Manual) 88, Lymphocytes % (Manual) 5, Monocytes % (Manual) 7, Toxic Granulation 2+, Blood Morphology Comment NORMAL, Prothrombin Time 25.4H, INR Comment 2.3H, Activated Partial Thromboplast Time 40H, Sodium Level 132L, Potassium Level 3.6, Chloride Level 90L, Carbon Dioxide Level 26, Anion Gap 16H, Blood Urea Nitrogen 28H, Creatinine 1.30, Estimat Glomerular Filtration Rate 40, BUN/Creatinine Ratio 22, Glucose Level 129H, Calcium Level 8.9, Corrected Calcium 9.0, Magnesium Level 1.7, Total Bilirubin 1.5H, Aspartate Amino Transf (AST/SGOT) 26, Alanine Aminotransferase (ALT/SGPT) 25, Alkaline Phosphatase 67, Myoglobin 143.0H, Troponin I < 0.028, B- Type Natriuretic Peptide 953.9H, Total Protein 6.7, Albumin 3.9 09/24/20 15:35: Blood Gas Puncture Site LEFT WRIST, Blood Gas Patient Temperature 36.6, Arterial Blood pH 7.49H, Arterial Blood Partial Pressure CO2 38, Arterial Blood Partial Pressure O2 77L, Arterial Blood HCO3 29H, Arterial Blood Total CO2 30.5, Arterial Blood Oxygen Saturation 96, Arterial Blood Base Excess 5.8H, Wei Test YES-POS, Blood Gas Ventilator Setting NO, Blood Gas Inspired Oxygen 5 L 09/24/20 15:45: Lactic Acid Level 0.95 09/24/20 16:12: Urine Color YELLOW, Urine Clarity CLEAR, Urine pH 5.5, Urine Specific [place] 1.010L, Urine Protein NEGATIVE, Urine Glucose (UA) NEGATIVE, Urine Ketones TRACEH, Urine Nitrite NEGATIVE, Urine Bilirubin NEGATIVE, Urine Urobilinogen 1.0, Urine Leukocyte Esterase NEGATIVE, Urine RBC (Auto) NEGATIVE, Urine RBC RAR E, Urine WBC NONE, Urine Squamous Epithelial Cells 10-25H, Urine Crystals NONE, Urine Bacteria TRACE, Urine Casts NONE, Urine Mucus NEGATIVE, Urine Culture Indicated CULTURE PENDING 09/25/20 05:21: White Blood Count 9.2, Red Blood Count 3.84, Hemoglobin 12.8, Hematocrit 38, Mean Corpuscular Volume 98, Mean Corpuscular Hemoglobin 33, Mean Corpuscular Hemoglobin Concent 34, Red Cell Distribution Width 14.4, Platelet Count 219, Mean Platelet Volume 10.8, Immature Granulocyte % (Auto) 0, Neutrophils (%) (Auto) 80H, Lymphocytes (%) (Auto) 6L, Monocytes (%) (Auto) 12, Eosinophils (%) (Auto) 1, Basophils (%) (Auto) 0, Neutrophils # (Auto) 7.3, Lymphocytes # (Auto) 0.6L, Monocytes # (Auto) 1.1H, Eosinophils # (Auto) 0.1, Basophils # (Auto) 0.0, Immature Granulocyte # (Auto) 0.0, Sodium Level 138, Potassium Level 3.4L, Chloride Level 96L, Carbon Dioxide Level 28, Anion Gap 14, Blood Urea Nitrogen 23H, Creatinine 1.10, Estimat Glomerular Filtration Rate 49, BUN/Creatinine Ratio 21, Glucose Level 105, Calcium Level 8.3L, Corrected Calcium 8.9, Total Bilirubin 0.9, Aspartate Amino Transf (AST/SGOT) 27, Alanine Aminotransferase (ALT/SGPT) 19, Alkaline Phosphatase 55, B-Type Natriuretic Peptide 1181.1H, Total Protein 5.7L, Albumin 3.3 Physical Exam Physical Exam Vital Signs Vital Signs - First Documented 09/24/20 09/24/20 12:55 20:20 Temp 36.6 Pulse 115 Resp 14 B/P (MAP) 115/69 (84) Pulse Ox 97 O2 Delivery Nasal Cannula O2 Flow Rate 6.00 FiO2 40 Capillary Refill : Less Than 3 Seconds Height, Weight, BMI Height: 5'6.00" Weight: 144lbs. 1.0oz. 65.285807pa; 20.97 BMI Method:Stated General Appearance: No Apparent Distress, WD/WN Eyes: Bilateral Eye Normal Inspection, Bilateral Eye PERRL, Bilateral Eye EOMI HEENT: PERRL/EOMI, Normal ENT Inspection, Pharynx Normal, Moist Mucous Membranes Neck: Full Range of Motion, Non Tender, Supple Respiratory: Chest Non Tender, No Accessory Muscle Use, No Respiratory Distress, Decreased Breath Sounds Cardiovascular: No Gallop, Normal Peripheral Pulses, Systolic Murmur, Irregularly Irregular, Other (bilateral pedal edema ) Gastrointestinal: Normal Bowel Sounds, Non Tender, Soft Back: Normal Inspection Extremity: Normal Capillary Refill, Normal Inspection, Normal Range of Motion, No Calf Tenderness Neurologic/Psychiatric: Alert, Oriented x3 Skin: Normal Color, Warm/Dry A/P-Cardiology Admission Diagnosis Shortness of breath AE CHF COPD afib Assessment/Plan Shortness of breath, CTA of chest revealed no evidence of PE, continue to diurese and continue to monitor. Acute CHF due to diastolic dysfunction and valvular heart disease - Echo on 08/25/20: LVEF 50-55%, ventricular septal dyssynergy, RV and biatrial enlargement, mod to severe MR & TR, PASP 80-85 mmHg A Fib, rate control with diltiazem and beta rashard. Maintained on Eliquis. COPD, managed by Dr. Cage DVT on venous Doppler of 08/22/20 (Thrombus identified in the anterior peroneal vein of the right calf) Severe pulmonary hypertension, dilated heart chambers, moderate to severe mitral regurgitation. Conservative management H/o nonobstructive CAD per cardiac catheterization August 08, 2015 H/o carotid artery stenosis (right carotid stenting done by Dr. James October 2015) H/o iron deficiency anemia secondary to chronic blood loss H/o hypothyroidism Thank you for allowing us to participate in the management of Ms. Khan. This is Alberta Ramos PA-C, as a scribe for Dr. Russell. Patient was seen and evaluated, examined and interviewed, I discussed the consult and management plan with Alberta and agree with scribed note overnight, patient became tachycardic and hypotensive and transferred to ICU requiring more oxygen starting on Amio bolus will add Digoxin if needed ALBERTA PALOMARES Sep 25, 2020 10:27 LOUISE RUSSELL MD Sep 25, 2020 22:49
[2020-09-25 10:31] LABS: ABG BASE EXCESS 7.6 MMOL/L (-2.5-2.5); ABG OXYGEN SATURATION 99 % (94-100); ABG PCO2 43 MMHG (35-45); ABG PH 7.48 (7.37-7.43); ABG PO2 133 MMHG (79-93); ABG TCO2 32.7 MMOL/L (21.0-31.0)
[2020-09-25 10:32] LABS: ALLENS TEST YES-POS; INSPIRED O2 80%
[2020-09-25 10:33] LABS: PATIENT TEMP 37; VENTILATOR NO
--- NOTE | 2020-09-25 10:42 | History & Physical-Hospitalist ---
History of Present Illness HPI/Chief Complaint CC: SOB HPI: This is 75yoWF known to me from recent hospital stay for CHF and pneumonia with chronic O2 dependency of 5-6 liters at home who presents with exacerbation of CHF. Cardiology has been consulted and Pt required transfer to the ICU after I saw her and consulted Dr. Cage because of worsening SOB and requirements of more oxygen on Vapotherm. Pt otherwise doing well and denies any pain. Source: patient, RN/MD Exam Limitations: clinical condition Date Seen 09/25/20 Time Seen by a Provider: 09:30 Attending Physician Alexandra Londono MD PCP Anju Thomas MD Referring Physician Date of Admission Sep 24, 2020 at 17:51 Home Medications & Allergies Home Medications Reviewed patient Home Medication Reconciliation performed by pharmacy medication reconciliations clinical dental technician and/or nursing. Patients Allergies have been reviewed. Allergies Allergies Coded Allergies valacyclovir HCl (Verified Allergy, Unknown, RASH, 08/30/14) Past Tsthkdr-Obaxfh-Dyjjdz Hx Past Med/Social Hx: Reviewed Nursing Past Med/Soc Hx, Reviewed and Corrections made Patient Social History Marrital Status: Employed/Student: retired Alcohol Use: Rarely Uses Recreational Drug Use: No Smoking Status: Never a Smoker Former Smoker, Quit: December 02, 1999 2nd Hand Smoke Exposure: No Recent Foreign Travel: Yes Contact w/other who traveled: No Recent Hopitalizations: No Recent Infectious Disease Expo: No Immunizations Up To Date Tetanus Booster (TDap): Less than 5yrs Pediatric: Yes Date of Pneumonia Vaccine: May 03, 2019 Date of Influenza Vaccine: May 03, 2020 Seasonal Allergies Seasonal Allergies: No Past Medical History Surgeries: Adenoidectomy, Cardiac, Eye Surgery, Tonsillectomy, Vascular Surgery Respiratory: COPD Currently Using CPAP: No Currently Using BIPAP: No Cardiac: Atrial Fibrillation, Chronic Edema/Swelling, High Cholesterol, Hypertension, Peripheral Vascular Reproductive: No Sexually Transmitted Disease: No HIV/AIDS: No Female Reproductive Disorders: Denies Genitourinary: UTI-Chronic Gastrointestinal: Gastroesophageal Reflux Musculoskeletal: Arthritis Endocrine: Hypothyroidsim HEENT: Cataract Loss of Vision: Bilateral Hearing Impairment: Denies History of Blood Disorders: Yes (ANEMIA--) Adverse Reaction to Blood [place]: No Family History A BLOOD DISEASE 19 FATHER Blood disease Diabetes mellitus G8 BROTHER (BORDERLINE DIABETIC) Hypertension 19 FATHER Psychosocial problem G8 BROTHER (MENTAL RETARDATION) Respiratory disorder 19 MOTHER (COPD) G8 BROTHER (COPD) COPD Review of Systems Constitutional: see HPI Respiratory: cough, dyspnea on exertion, short of breath, wheezing Physical Exam Physical Exam Vital Signs Vital Signs - First Documented 09/24/20 09/24/20 12:55 20:20 Temp 36.6 Pulse 115 Resp 14 B/P (MAP) 115/69 (84) Pulse Ox 97 O2 Delivery Nasal Cannula O2 Flow Rate 6.00 FiO2 40 Capillary Refill : Less Than 3 Seconds Height, Weight, BMI Height: 5'6.00" Weight: 144lbs. 1.0oz. 65.728853in; 20.97 BMI Method:Stated General Appearance: Anxious, Chronically ill, Mild Distress Eyes: Right Eye Normal Inspection, Right Eye PERRL HEENT: PERRL/EOMI, Normal ENT Inspection, Pharynx Normal, Moist Mucous Membranes Neck: Full Range of Motion, Normal Inspection, Non Tender Respiratory: Chest Non Tender, No Accessory Muscle Use, No Respiratory Distress, Crackles, Decreased Breath Sounds, Wheezing Cardiovascular: Regular Rate, Rhythm, No Edema, No Gallop, No JVD, No Murmur, Normal Peripheral Pulses Gastrointestinal: Normal Bowel Sounds, No Organomegaly, No Pulsatile Mass, Non Tender, Soft Back: Normal Inspection, No CVA Tenderness, No Vertebral Tenderness Extremity: Normal Capillary Refill, Normal Inspection, Normal Range of Motion, Non Tender, No Calf Tenderness, No Pedal Edema Neurologic/Psychiatric: Alert, Oriented x3, No Motor/Sensory Deficits, Normal Mood/Affect Skin: Normal Color, Warm/Dry Lymphatic: No Adenopathy Results Results/Procedures Labs Laboratory Tests 09/24/20 14:20 09/25/20 05:21 09/25/20 14:23 09/25/20 21:00 09/26/20 03:35 Patient resulted labs reviewed. Assessment/Plan Admission Diagnosis Assessment: AECOPD CHF AF O2 dependency PVD Plan: Transfer to ICU Monitor O2 Admission Status: Inpatient Order (span 2 midnights) Reason for Inpatient Admission: resp failure Diagnosis/Problems Diagnosis/Problems (1) Acute exacerbation of CHF (congestive heart failure) Status: Acute (2) Acute on chronic respiratory failure with hypoxia Status: Acute (3) COPD (chronic obstructive pulmonary disease) Status: Acute (4) Hypoxia Status: Acute (5) On continuous oral anticoagulation Status: Acute (6) Chronic atrial fibrillation Status: Acute ANAT REBOLLAR DO Sep 25, 2020 10:42
[2020-09-25] MEDS ORDERED: KCL 20 MEQ TAB (K-DUR) PO NR (11:30)
--- NOTE | 2020-09-25 11:39 | Pulmonary Consultation ---
History of Present Illness History of Present Illness Date Seen by Provider: Sep 25, 2020 Time Seen by Provider: 11:33 Date of Admission Reason for Visit: AE CHF Allergies and Home Medications Allergies Coded Allergies: valacyclovir HCl (Verified Allergy, Unknown, RASH, 08/30/14) Home Medications Acetaminophen 500 Mg Tablet, 500 MG PO Q4H PRN for PAIN-MILD, (Reported) Albuterol Sulfate 2.5 Mg/3 Ml Vial.neb, 2.5 MG NEB EVERY 4-6 HOURS PRN for SHORTNESS OF BREATH, (Reported) Albuterol Sulfate 18 Gm Hfa.aer.ad, 2 PUFF INH QID PRN for SHORTNESS OF BREATH, (Reported) Apixaban 5 Mg Tablet, 5 MG PO BID Prescribed by: ANAT REBOLLAR on 08/31/20 115 Atorvastatin Calcium 20 Mg Tablet, 20 MG PO HS, (Reported) Calcium Carbonate/Vitamin D3 1 Each Tablet, 2 EACH PO DAILY, (Reported) Diltiazem HCl 180 Mg Cap.er.24h, 360 MG PO DAILY Prescribed by: ANAT REBOLLAR on 08/31/20 115 Docusate Sodium 100 Mg Capsule, 100-200 MG PO DAILY PRN for CONSTIPATION-1ST LINE, (Reported) Ferrous Sulfate 325 Mg Tablet.dr, 325 MG PO DAILY, (Reported) Fluticasone/Umeclidin/Vilanter 1 Each Blst.w.dev, 1 EACH IH DAILY, (Reported) Furosemide 40 Mg Tablet, 40 MG PO 0700,1400, (Reported) Levothyroxine Sodium 100 Mcg Tablet, 100 MCG PO DAILY@0630 Prescribed by: ANAT REBOLLAR on 08/31/20 1155 Metoprolol Succinate 50 Mg Tab.er.24h, 50 MG PO DAILY, (Reported) Montelukast Sodium 10 Mg Tablet, 10 MG PO HS, (Reported) Multivitamin 1 Each Tablet, 1 TAB PO DAILY, (Reported) [place]-3 Fatty Acids/Fish Oil 1 Each Capsule, 1,000 MG PO DAILY, (Reported) Pantoprazole Sodium 40 Mg Tablet.dr, 40 MG PO 1700 BEFORE MEAL, (Reported) Prednisone 10 Mg Tab, 10 MG PO DAILY TAKES 10MG +5MG TO EQAUL 15MG DAILY Prescribed by: ANAT REBOLLAR on 08/31/20 1155 Prednisone 10 Mg Tab, 10 MG PO DAILY TAKES 10MG +5MG TO EQAUL 15MG DAILY Prescribed by: ANAT REBOLLAR on 08/31/20 1155 Sildenafil Citrate 20 Mg Tablet, 20 MG PO TID, (Reported) Sodium Chloride [address], 1-2 SPRAYS NS TID PRN for DRY NOSE, (Reported) Sodium Chloride/Aloe Vera [address], 1 SPRAY NA BID PRN for DRY NOSE, (Reported) Past Idilubo-Kgujtc-Fuyhfp Hx Patient Social History Alcohol Use: Rarely Uses Smoking Status: Never a Smoker Former Smoker, Quit: December 02, 1999 2nd Hand Smoke Exposure: No Recent Infectious Disease Expo: No Recent Hopitalizations: No Have you traveled recently?: No Alcohol Use?: No Immunizations Up To Date Tetanus Booster (TDap): Less than 5yrs PED Vaccines UTD: Yes Date of Pneumonia Vaccine: May 03, 2019 Date of Influenza Vaccine: May 03, 2020 Seasonal Allergies Seasonal Allergies: No Past Medical History Surgeries: Yes (t&a, cataract removal, lumpectomy, R cartoid stent) Adenoidectomy, Cardiac, Eye Surgery, Tonsillectomy, Vascular Surgery Respiratory: Yes (PULMONARY HTN; CONTINUOUS HOME O2 5L/NC IN DAY, 6L/NC AT NIGHT ) COPD, Emphysema Currently Using CPAP: No Currently Using BIPAP: No Cardiac: Yes (CHF, RAYNAUD'S,CARDIAC CATH--NO INTERVENTION,RIGHT CAROTID STENT) Atrial Fibrillation, Chronic Edema/Swelling, High Cholesterol, Hypertension, Peripheral Vascular Neurological: No Reproductive Disorders: No Female Reproductive Disorders: Denies Sexually Transmitted Disease: No HIV/AIDS: No Genitourinary: No UTI-Chronic Gastrointestinal: Yes Gastroesophageal Reflux Musculoskeletal: Yes (RAYNAUD'S ) Arthritis Endocrine: Yes Hypothyroidsim Cataract Loss of Vision: Bilateral Hearing Impairment: Denies Cancer: No Psychosocial: No Integumentary: Yes Blood Disorders: Yes (ANEMIA--) Adverse Reaction/Blood Tranf: No Family Medical History A BLOOD DISEASE 19 FATHER Blood disease Diabetes mellitus G8 BROTHER (BORDERLINE DIABETIC) Hypertension 19 FATHER Psychosocial problem G8 BROTHER (MENTAL RETARDATION) Respiratory disorder 19 MOTHER (COPD) G8 BROTHER (COPD) COPD Sepsis Event Evaluation Height, Weight, BMI Height: 5'6.00" Weight: 144lbs. 1.0oz. 65.297246qf; 20.97 BMI Method:Stated Exam Exam Vital Signs Date Time Temp Pulse Resp B/P (MAP) Pulse Ox O2 Delivery O2 Flow Rate FiO2 09/25/20 11:28 Vapotherm 20.00 60.00 09/25/20 10:45 109 31 121/73 (89) 99 Vapotherm 25.00 60.00 09/25/20 10:27 91 Vapotherm 35.00 85 09/25/20 08:38 93 Vapotherm 28.00 09/25/20 08:00 36.4 108 16 110/63 (79) 92 Vapotherm 25.00 80.00 09/25/20 06:52 93 Vapotherm 25.00 80 09/25/20 03:32 36.4 89 26 103/58 (73) 95 Vapotherm 25.00 80.00 09/25/20 01:39 65 Nasal Cannula 8.00 09/24/20 23:17 36.8 87 26 105/56 (72) 93 Nasal Cannula 10.00 09/24/20 21:38 75 Nasal Cannula 5.00 09/24/20 20:20 36.6 115 69 40 09/24/20 19:09 36.6 78 18 107/57 (74) 94 Nasal Cannula 5.00 5.00 09/24/20 19:00 Nasal Cannula 7.00 09/24/20 18:22 36.6 115 14 115/69 (84) 93 Nasal Cannula 5.00 09/24/20 14:20 93 Nasal Cannula 5.00 09/24/20 12:55 36.6 115 14 115/69 (84) 97 Nasal Cannula 6.00 I & O 09/25/20 07:00 Intake Total 1900 ml Output Total 1350 ml Balance 550 ml Height & Weight Height: 5'6.00" Weight: 144lbs. 1.0oz. 65.327644gy; 20.97 BMI Method:Stated General Appearance: No Apparent Distress, WD/WN HEENT: PERRL/EOMI, Normal ENT Inspection, Pharynx Normal, Moist Mucous Membranes Neck: Full Range of Motion, Non Tender, Supple Respiratory: Chest Non Tender, No Accessory Muscle Use, No Respiratory Distress, Decreased Breath Sounds Cardiovascular: No Gallop, Normal Peripheral Pulses, Systolic Murmur, Irregularly Irregular, Other (bilateral pedal edema ) Capillary Refill: Less Than 3 Seconds Extremity: Normal Capillary Refill, Normal Inspection, Normal Range of Motion, No Calf Tenderness Neurologic/Psychiatric: Alert, Oriented x3 Skin: Normal Color, Warm/Dry Results Lab Laboratory Tests 09/24/20 14:20 09/25/20 05:21 Assessment/Plan Assessment/Plan Pulmonary edema with hypoxia secondary to CHF CHFAE LVEF 50-55% dyastolic dysfunction -Continue Lasix -Cardiology is following -Transfer to ICU Hypokalemia -Replace -Repeat labs at 1400 Valvular heart disease Pulmonary HTN Probably group 2 and 3 -Lasix -Eliquis - continue Oxygen -Monitor -Pt takes Ravatio at home Will continue COPDAE -SVNS -Monitor Hypothyroid -Continue home synthroid -Check TSH Afib -Restart Eliquis Shortness of breath AE CHF COPD afib AMBROSIO KUMAR DO Sep 25, 2020 11:39
--- NOTE | 2020-09-25 12:08 | Diagnostic Imaging Report ---
INDICATION: Dyspnea. Single AP view of the chest is obtained. Since 08/31/2020, there is continued cardiomegaly with mild increase in pulmonary venous congestion. There is also mild increase in bilateral basilar density and blunting of the costophrenic sulci. IMPRESSION: Findings are indicative of congestive heart failure with increasing pulmonary edema and mild bilateral pleural fluid. Dictated by: Dictated on workstation # [id number]
[2020-09-25] MEDS ORDERED: NS IV 500 ML 500 ML ONE (13:07)
[2020-09-25] MEDS: methylPREDNISolone 40 MG/ML (Solu-MEDROL) VIAL IV SCH ×2 (13:25→18:20)
[2020-09-25] MEDS: FUROSEMIDE 40 MG/4 ML INJ (LASIX) IVP SCH ×2 (13:26→18:20)
[2020-09-25] MEDS: SILDENAFIL 20 MG (REVATIO) TAB NON-FORMULARY PO SCH ×2 (13:26→23:06)
[2020-09-25] MEDS: POTASSIUM CL 10MEQ/50ML IVPB 50 ML IV SCH ×3 (13:33→18:20)
[2020-09-25 15:13] LABS: ALBUMIN 3.4 GM/DL (3.2-4.5); BILIRUBIN,TOTAL 0.9 MG/DL (0.1-1.0); CALCIUM 8.6 MG/DL (8.5-10.1); CREATININE SERUM 1.11 MG/DL (0.60-1.30); MAGNESIUM 1.6 MG/DL (1.6-2.4); PHOSPHORUS 2.9 MG/DL (2.3-4.7); POTASSIUM 3.1 MMOL/L (3.6-5.0); TOTAL PROTEIN 5.7 GM/DL (6.4-8.2)
[2020-09-25] MEDS ORDERED: APIX5TAB PO (15:49)
[2020-09-25] MEDS ORDERED: PRD10T PO (15:49)
[2020-09-25] MEDS ORDERED: DILT360C36 PO (15:49)
[2020-09-25] MEDS ORDERED: LEVO100T7 PO (15:49)
[2020-09-25] MEDS ORDERED: AMIODARONE (BOLUS) 150 MG/3 ML IV ONE (20:41)
[2020-09-25] MEDS ORDERED: D5W 100 ML IVPB 100 ML IV ONE (20:41)
[2020-09-25] MEDS ORDERED: NORMAL SALINE 0 ML ONE (20:42)
[2020-09-25] MEDS ORDERED: AMIODARONE 450 MG/9 ML (CORDARONE) VIAL IV ONE (20:42)
[2020-09-25] MEDS ORDERED: D5W IV SOLUTION (EXCEL) 250 ML IV ONE (20:43)
[2020-09-25] MEDS ORDERED: SALINE NASAL SPRAY (OCEAN) 45 ML BTL NS PRN (20:45)
[2020-09-25] MEDS ORDERED: ACETAMINOPHEN 500 MG TAB (TYLENOL) PO PRN (20:45)
[2020-09-25] MEDS ORDERED: AMIODARONE FOR BOLUS 150 MG in D5W 100 ML IVPB 100 ML IV SCH (20:48)
[2020-09-25 21:21] LABS: POTASSIUM 4.1 MMOL/L (3.6-5.0)
[2020-09-25 21:22] LABS: CALCIUM 8.1 MG/DL (8.5-10.1)
[2020-09-25 21:27] LABS: CREATININE SERUM 1.05 MG/DL (0.60-1.30)
[2020-09-25 21:29] LABS: MAGNESIUM 1.5 MG/DL (1.6-2.4)
[2020-09-25] MEDS ORDERED: RT-ALBUTEROL INHALER HFA (VENTOLIN HFA) 18 GM IH PRN (21:30)
[2020-09-25] MEDS: AMIODARONE INJECTION 450 MG in D5W IV SOLUTION (EXCEL) 250 ML IV SCH (22:54)
[2020-09-25] MEDS: APIXABAN 5 MG (ELIQUIS) TABLET PO SCH (23:06)
[2020-09-25] MEDS: MONTELUKAST 10 MG (SINGULAIR) TAB PO SCH (23:06)
[2020-09-26] VITALS (24 sets, daily range): BP systolic 88–128; BP diastolic 56–85
[2020-09-26] MEDS: methylPREDNISolone 40 MG/ML (Solu-MEDROL) VIAL IV SCH ×5 (00:29→23:40)
[2020-09-26] MEDS ORDERED: HALOPERIDOL 5 MG/ML (HALDOL) VIAL IV ONE (02:00)
[2020-09-26] MEDS ORDERED: HALOPERIDOL 5 MG/ML (HALDOL) VIAL ONE (02:05)
[2020-09-26] MEDS: DexMEDEtomidine 250 ML DRIP 250 ML IV SCH ×2 (03:02→20:17)
[2020-09-26] MEDS: RT-ALBUTEROL INHALER HFA (VENTOLIN HFA) 18 GM IH SCH ×6 (03:06→22:05)
[2020-09-26] MEDS ORDERED: AMIODARONE INJECTION 150 MG in D5W 100 ML IVPB 100 ML IV ONE (03:30)
[2020-09-26 03:49] LABS: BASOPHILS % (AUTO) 0 % (0-10); EOSINOPHILS % (AUTO) 0 % (0-10); HEMATOCRIT 39 % (35-52); HEMOGLOBIN 13.3 g/dL (11.5-16.0); LYMPHOCYTES # (AUTO) 0.2 10^3/uL (1.0-4.0); LYMPHOCYTES % (AUTO) 2 % (12-44); MEAN CORPUSCULAR HEMOGLOBIN 33 pg (25-34); MEAN CORPUSCULAR HGB CONC 34 g/dL (32-36); MEAN CORPUSCULAR VOLUME 97 fL (80-99); MEAN PLATELET VOLUME 10.6 fL (9.0-12.2); MONOCYTES # (AUTO) 0.2 10^3/uL (0.0-1.0); MONOCYTES % (AUTO) 2 % (0-12); NEUTROPHILS # (AUTO) 9.1 10^3/uL (1.8-7.8); NEUTROPHILS % (AUTO) 95 % (42-75); PLATELET COUNT 276 10^3/uL (130-400); WHITE BLOOD COUNT 9.5 10^3/uL (4.3-11.0)
[2020-09-26 03:50] LABS: ABG BASE EXCESS 6.5 MMOL/L (-2.5-2.5); ABG OXYGEN SATURATION 95 % (94-100); ABG PCO2 38 MMHG (35-45); ABG PH 7.51 (7.37-7.43); ABG PO2 63 MMHG (79-93); ABG TCO2 31.3 MMOL/L (21.0-31.0)
[2020-09-26 04:03] LABS: ALLENS TEST YES-POS; INSPIRED O2 60%; PATIENT TEMP 35.6; VENTILATOR NO
[2020-09-26 04:05] LABS: POTASSIUM 4.5 MMOL/L (3.6-5.0)
[2020-09-26 04:06] LABS: CALCIUM 8.9 MG/DL (8.5-10.1)
[2020-09-26 04:11] LABS: CREATININE SERUM 1.12 MG/DL (0.60-1.30); PHOSPHORUS 2.5 MG/DL (2.3-4.7)
[2020-09-26 04:14] LABS: MAGNESIUM 1.6 MG/DL (1.6-2.4)
--- NOTE | 2020-09-26 06:08 | Pulmonary Progress Note ---
Subjective Time Seen by a Provider: 06:02 Sepsis Event Evaluation Height, Weight, BMI Height: 5'6.00" Weight: 144lbs. 1.0oz. 65.414207cc; 20.97 BMI Method:Stated Focused Exam Lactate Level 09/24/20 15:45: Lactic Acid Level 0.95 Exam Exam Vital Signs Date Time Temp Pulse Resp B/P (MAP) Pulse Ox O2 Delivery O2 Flow Rate FiO2 09/26/20 05:34 Vapotherm 20.00 45.00 09/26/20 05:00 125 17 96/70 (79) 97 Vapotherm 40.00 55.00 09/26/20 04:00 Vapotherm 40.00 55.00 09/26/20 04:00 124 21 112/83 (93) 96 Vapotherm 40.00 55.00 09/26/20 03:46 142 26 97 50.00 09/26/20 03:07 97 Vapotherm 25.00 70 09/26/20 03:02 130 111/73 09/26/20 03:00 144 27 128/82 (97) 100 Vapotherm 20.00 60.00 09/26/20 02:23 Vapotherm 20.00 60.00 09/26/20 02:00 125 26 105/65 (78) 98 Vapotherm 25.00 70.00 09/26/20 01:00 129 25 109/69 (82) 98 Vapotherm 25.00 70.00 09/26/20 01:00 129 09/26/20 00:00 130 25 111/73 (86) 97 Vapotherm 25.00 70.00 09/26/20 00:00 36.0 09/25/20 23:30 Vapotherm 25.00 70.00 09/25/20 23:00 130 25 111/73 (86) 97 Vapotherm 20.00 60.00 09/25/20 22:36 144 129/73 09/25/20 22:00 144 39 129/73 (91) 90 Vapotherm 20.00 60.00 09/25/20 21:00 126 17 94/73 (80) 94 Vapotherm 20.00 60.00 09/25/20 20:08 35.7 128 20 104/81 (89) 98 Vapotherm 20.00 60.00 09/25/20 20:00 94 Vapotherm 20.00 60 09/25/20 19:00 144 09/25/20 19:00 144 23 115/85 (95) 95 Vapotherm 20.00 60.00 09/25/20 18:33 Vapotherm 20.00 60.00 09/25/20 18:00 121 19 104/83 (90) 93 Vapotherm 25.00 55.00 09/25/20 17:56 92 Vapotherm 25.00 60 09/25/20 17:14 Vapotherm 25.00 55.00 09/25/20 17:00 124 31 105/88 (94) 98 Vapotherm 20.00 50.00 09/25/20 16:00 36.6 09/25/20 16:00 121 39 111/84 (93) 96 Vapotherm 20.00 50.00 09/25/20 15:00 108 30 117/80 (92) 81 Vapotherm 20.00 50.00 09/25/20 14:51 93 Vapotherm 20.00 50 09/25/20 14:50 Vapotherm 20.00 50.00 09/25/20 14:00 100 23 116/70 (85) 95 Vapotherm 25.00 60.00 09/25/20 13:00 122 23 111/81 (91) 88 Vapotherm 25.00 60.00 09/25/20 12:45 111 09/25/20 12:00 36.3 09/25/20 12:00 117 21 123/80 (94) 86 Vapotherm 25.00 60.00 09/25/20 11:28 Vapotherm 20.00 60.00 09/25/20 10:45 109 31 121/73 (89) 99 Vapotherm 25.00 60.00 09/25/20 10:27 91 Vapotherm 35.00 85 09/25/20 08:38 93 Vapotherm 28.00 09/25/20 08:00 36.4 108 16 110/63 (79) 92 Vapotherm 25.00 80.00 09/25/20 06:52 93 Vapotherm 25.00 80 I & O 09/26/20 07:00 Intake Total 600 ml Output Total 700 ml Balance -100 ml Height & Weight Height: 5'6.00" Weight: 144lbs. 1.0oz. 65.495054uj; 20.97 BMI Method:Stated General Appearance: Anxious, Chronically ill, Mild Distress HEENT: PERRL/EOMI, Normal ENT Inspection, Pharynx Normal, Moist Mucous Membranes Neck: Full Range of Motion, Normal Inspection, Non Tender Respiratory: Chest Non Tender, No Accessory Muscle Use, No Respiratory Distress, Crackles, Decreased Breath Sounds, Wheezing Cardiovascular: Regular Rate, Rhythm, No Edema, No Gallop, No JVD, No Murmur, Normal Peripheral Pulses Capillary Refill: Less Than 3 Seconds Extremity: Normal Capillary Refill, Normal Inspection, Normal Range of Motion, Non Tender, No Calf Tenderness, No Pedal Edema Neurologic/Psychiatric: Alert, Oriented x3, No Motor/Sensory Deficits, Normal Mood/Affect Skin: Normal Color, Warm/Dry Lymphatic: No Adenopathy Results Lab Laboratory Tests 09/24/20 14:20 09/25/20 05:21 09/25/20 14:23 09/25/20 21:00 09/26/20 03:35 Assessment/Plan Assessment/Plan Acute respiratory failure -continue Vapotherm Pulmonary edema with hypoxia secondary to CHF -Rapid COVID is negative CHFAE LVEF 50-55% dyastolic dysfunction -Continue Lasix -Cardiology is following -Transfer to ICU Metabolic encephalopathy -Will start Risperadol -Precedex UTI -Rocephin Afib RVR -Ammio gtt currently -Eliquis Hypokalemia -Replace -Repeat labs at 1400 Valvular heart disease Pulmonary HTN Probably group 2 and 3 -Lasix -Eliquis - continue Oxygen -Monitor -Pt takes Ravatio at home Will continue COPDAE -SVNS -Monitor Hypothyroid -home synthroid Afib -Restart Eliquis Shortness of breath AE CHF COPD afib AMBROSIO KUMAR DO Sep 26, 2020 06:08
[2020-09-26] MEDS ORDERED: HALOPERIDOL 5 MG/ML (HALDOL) VIAL IM PRN (06:15)
[2020-09-26] MEDS ORDERED: morphine INJ 4 MG/ML 1 ML (VIAL/SYRINGE) IVP PRN (06:15)
[2020-09-26] MEDS ORDERED: cefTRIAXone FOR IV USE 1,000 MG in WATER (STERILE) FOR INJECTION 10 ML IV SCH (06:15)
[2020-09-26] MEDS ORDERED: LEVOTHYROXINE 100 MCG (LEVOTHROID) TAB PO SCH (06:30)
[2020-09-26] MEDS: PANTOPRAZOLE 40 MG (PROTONIX) TAB PO SCH (06:33)
[2020-09-26] MEDS: LEVOTHYROXINE 100 MCG (LEVOTHROID) TAB PO SCH (06:33)
[2020-09-26] MEDS: AMIODARONE INJECTION 450 MG in D5W IV SOLUTION (EXCEL) 250 ML IV SCH (06:42)
[2020-09-26] MEDS ORDERED: SALINE NASAL SPRAY (OCEAN) 45 ML BTL PRN (06:45)
[2020-09-26] MEDS: FUROSEMIDE 40 MG/4 ML INJ (LASIX) IVP SCH ×2 (06:52→17:36)
--- NOTE | 2020-09-26 07:45 | Diagnostic Imaging Report ---
Indication: Dyspnea Upright portable chest shows cardiomegaly with vascular congestion. There are interstitial infiltrates and small effusions. IMPRESSION: Congestive failure similar to the 09/25/2020 study. Dictated by: Dictated on workstation # [id number]
[2020-09-26] MEDS: MAGNESIUM 1 GM/100 ML IVPB 100 ML IV SCH (07:54)
[2020-09-26] MEDS: risperiDONE 1 MG (RisperDAL) TAB PO SCH ×2 (09:36→20:16)
[2020-09-26] MEDS: APIXABAN 5 MG (ELIQUIS) TABLET PO SCH ×2 (09:36→20:16)
[2020-09-26] MEDS: SILDENAFIL 20 MG (REVATIO) TAB NON-FORMULARY PO SCH ×3 (09:36→20:16)
[2020-09-26] MEDS: AMOXICILLIN 500 MG (POLYMOX) CAP PO SCH ×3 (09:38→20:16)
[2020-09-26] MEDS ORDERED: inSUlin ASPART (NovoLOG) 1 UNIT/0.01 ML (CHARGE PER UNIT) SC SCH (11:00)
--- NOTE | 2020-09-26 11:55 | Progress Note - Hospitalist ---
Subjective HPI/CC On Admission Date Seen by Provider: Sep 26, 2020 Time Seen by Provider: 10:00 CC: SOB HPI: This is 75yoWF known to me from recent hospital stay for CHF and pneumonia with chronic O2 dependency of 5-6 liters at home who presents with exacerbation of CHF. Cardiology has been consulted and Pt required transfer to the ICU after I saw her and consulted Dr. Cage because of worsening SOB and requirements of more oxygen on Vapotherm. Pt otherwise doing well and denies any pain. Subjective/Events-last exam Last night pt started becoming confused, ultimately required Precedex and ant ipsychotics and still remained agitated Pt started running AF with RVR, maintained on Vapotherm and anti-arrhythmic drip initiated Overall she is able to open her eyes but denies any significant new issues, unable to tell me much Review of Systems Neurological: Confusion Focused Exam Lactate Level 09/24/20 15:45: Lactic Acid Level 0.95 Objective Exam Vital Signs Vital Signs Date Time Temp Pulse Resp B/P (MAP) Pulse Ox O2 Delivery O2 Flow Rate FiO2 09/27/20 04:37 36.6 96 Vapotherm 25.00 40.00 09/27/20 03:00 104 12 09/27/20 02:18 40 Capillary Refill : Less Than 3 Seconds General Appearance: No Apparent Distress, WD/WN, Chronically ill Respiratory: No Accessory Muscle Use, No Respiratory Distress, Decreased Breath Sounds Cardiovascular: Regular Rate, Rhythm, Irregularly Irregular, Tachycardia Neurologic/Psychiatric: Alert, Disoriented Results/Procedures Lab Laboratory Tests 09/27/20 02:45 Patient resulted labs reviewed. Assessment/Plan Assessment and Plan Assess & Plan/Chief Complaint Assessment: AECOPD CHF AF O2 dependency PVD Plan: Transfer to ICU Monitor O2 09/26/20: Delirium management O2 Vapotherm Monitor AF Diagnosis/Problems Diagnosis/Problems (1) Acute exacerbation of CHF (congestive heart failure) Status: Acute (2) Acute on chronic respiratory failure with hypoxia Status: Acute (3) COPD (chronic obstructive pulmonary disease) Status: Acute (4) Hypoxia Status: Acute (5) On continuous oral anticoagulation Status: Acute (6) Chronic atrial fibrillation Status: Acute ANAT REBOLLAR DO Sep 26, 2020 11:55
--- NOTE | 2020-09-26 12:21 | Cardiology Progress Note ---
Subjective Date Seen by Provider: Sep 26, 2020 Time Seen by Provider: 12:17 Subjective/Events-last exam She was transferred to intensive care unit due to increasing respiratory requirement of oxygen, became tachycardic, in atrial fibrillation with ventricular. Started on amiodarone drip at night. Review of Systems General: No Chills, No Night Sweats; Fatigue, Malaise; No Appetite, No Other HEENT: No Head Aches, No Visual Changes, No Eye Pain, No Ear Pain, No Dysp hasia, No Sinus Congestion, No Post Nasal Drip, No Sore Throat, No Other Pulmonary: Dyspnea; No Cough, No Pleuritic Chest Pain, No Other Cardiovascular: No: Chest Pain, Palpitations, Orthopnea, Paroxysmal Noc. Dyspnea, Edema, Lt Headedness, Other Focused Exam Lactate Level 09/24/20 15:45: Lactic Acid Level 0.95 Objective-Cardiology Exam Last Set of Vital Signs Vital Signs 09/26/20 09/26/20 09/26/20 10:26 12:00 12:07 Temp 36.2 Pulse 102 Resp 21 B/P (MAP) 99/66 (77) Pulse Ox 100 O2 Delivery Vapotherm O2 Flow Rate 20.00 45.00 FiO2 45 Capillary Refill : Less Than 3 Seconds I&O l Intake and Output 09/26/20 00:00 Intake Total 1800 ml Output Total 2050 ml Balance -250 ml Intake Oral 700 ml IV Total 1100 ml Output Urine Total 2050 ml General: Alert, Oriented X3, Cooperative HEENT: Atraumatic, PERRLA Neck: Supple, No JVD, No Thyromegaly Lungs: Normal Air Movement, Other (bilateral rhonchi, diminished air entry) Heart: Normal S1, Normal S2, No Murmurs, Other (atrial fibrillation with ventricular response) Abdomen: Normal Bowel Sounds, Soft, No Tenderness, No Hepatosplenomegaly, No Masses Extremities: No Clubbing, No Cyanosis, No Edema, Normal Pulses, No Tenderness/Swelling Skin: No Rashes, No Breakdown, No Significant Lesion Neuro: Normal Gait, Normal Speech, Strength at 5/5 X4 Ext, Normal Tone, Sensation Intact Psych/Mental Status: Mental Status NL, Mood NL Results Lab Laboratory Tests 09/25/20 14:23 09/25/20 21:00 09/26/20 03:35 A/P-Cardiology Admission Diagnosis Shortness of breath AE CHF COPD afib Assessment/Plan Acute respiratory failure, currently on Vapotherm, transferred to intensive care unit, still having significant shortness of breath Atrial fibrillation with rapid ventricular response, started on amiodarone last night, I am hesitant to continue with amiodarone due to her underlying lung disease, I we will try digoxin in addition to her home dose of diltiazem and monitor her tolerance and response. Congestive heart failure, acute on chronic left ventricular diastolic dysfunction and valvular heart disease, last echo was done in August 2020 showing ejection fraction 50-55 percent. Biatrial enlargement and moderate to severe mitral and tricuspid regurgitation, severe pulmonary hypertension with PA pressure 80-85 mmHg COPD, followed and managed by Dr. Cage, acute exacerbation, her severe pulmonary hypertension is probably due to combination of COPD and mitral regurgitation Severe pulmonary hypertension, dilated heart chambers, moderate to severe mitral regurgitation. Conservative management H/o nonobstructive CAD per cardiac catheterization August 08, 2015 H/o carotid artery stenosis (right carotid stenting done by Dr. James October 2015) H/o iron deficiency anemia secondary to chronic blood loss H/o hypothyroidism LUOISE SPARROW MD Sep 26, 2020 12:21
[2020-09-26] MEDS ORDERED: DIGOXIN 0.25 MG/ML (LANOXIN) 2 ML AMP IV NR (12:30)
[2020-09-26] MEDS: MONTELUKAST 10 MG (SINGULAIR) TAB PO SCH (20:16)
[2020-09-27] VITALS (15 sets, daily range): BP systolic 96–130; BP diastolic 58–82
[2020-09-27] MEDS: RT-ALBUTEROL INHALER HFA (VENTOLIN HFA) 18 GM IH SCH ×6 (02:17→22:31)
[2020-09-27 03:22] LABS: BASOPHILS % (AUTO) 0 % (0-10); EOSINOPHILS % (AUTO) 0 % (0-10); HEMATOCRIT 40 % (35-52); HEMOGLOBIN 13.4 g/dL (11.5-16.0); LYMPHOCYTES # (AUTO) 0.3 10^3/uL (1.0-4.0); LYMPHOCYTES % (AUTO) 3 % (12-44); MEAN CORPUSCULAR HEMOGLOBIN 33 pg (25-34); MEAN CORPUSCULAR HGB CONC 33 g/dL (32-36); MEAN CORPUSCULAR VOLUME 98 fL (80-99); MEAN PLATELET VOLUME 10.7 fL (9.0-12.2); MONOCYTES # (AUTO) 0.4 10^3/uL (0.0-1.0); MONOCYTES % (AUTO) 4 % (0-12); NEUTROPHILS # (AUTO) 8.9 10^3/uL (1.8-7.8); NEUTROPHILS % (AUTO) 93 % (42-75); PLATELET COUNT 213 10^3/uL (130-400); WHITE BLOOD COUNT 9.6 10^3/uL (4.3-11.0)
[2020-09-27 03:40] LABS: CHLORIDE 97 MMOL/L (98-107); POTASSIUM 4.2 MMOL/L (3.6-5.0); SODIUM 139 MMOL/L (135-145)
[2020-09-27 03:41] LABS: CALCIUM 8.2 MG/DL (8.5-10.1)
[2020-09-27 03:42] LABS: GLUCOSE 144 MG/DL (70-105)
[2020-09-27 03:43] LABS: CARBON DIOXIDE 28 MMOL/L (21-32)
[2020-09-27 03:45] LABS: GFR ESTIMATED > 60; PHOSPHORUS 3.8 MG/DL (2.3-4.7)
[2020-09-27 03:46] LABS: BUN/CREATININE RATIO 17
[2020-09-27 03:48] LABS: MAGNESIUM 2.1 MG/DL (1.6-2.4)
--- NOTE | 2020-09-27 04:20 | Diagnostic Imaging Report ---
Indication: Shortness of breath Portable chest 2:58 AM There is cardiomegaly. There is vascular congestion with interstitial edema. There is some volume loss at both lung bases which could be infiltrate or atelectasis. Left-sided effusion cannot be excluded. IMPRESSION: Cardiomegaly with pulmonary venous hypertension and basilar consolidations that could be infiltrate, atelectasis and/or effusion. No appreciable change from the previous day. Dictated by: Dictated on workstation # [id number]
[2020-09-27] MEDS: LEVOTHYROXINE 100 MCG (LEVOTHROID) TAB PO SCH (05:33)
[2020-09-27] MEDS: methylPREDNISolone 40 MG/ML (Solu-MEDROL) VIAL IV SCH ×2 (05:33→17:12)
[2020-09-27] MEDS: FUROSEMIDE 40 MG/4 ML INJ (LASIX) IVP SCH ×2 (05:33→16:57)
[2020-09-27] MEDS: PANTOPRAZOLE 40 MG (PROTONIX) TAB PO SCH (05:33)
--- NOTE | 2020-09-27 05:47 | Pulmonary Progress Note ---
Subjective Time Seen by a Provider: 05:42 Subjective/Events-last exam No complications noted. Pt is doing better. Sepsis Event Evaluation Height, Weight, BMI Height: 5'6.00" Weight: 144lbs. 1.0oz. 65.099889im; 20.97 BMI Method:Stated Focused Exam Lactate Level 09/24/20 15:45: Lactic Acid Level 0.95 Exam Exam Vital Signs Date Time Temp Pulse Resp B/P (MAP) Pulse Ox O2 Delivery O2 Flow Rate FiO2 09/27/20 04:37 36.6 96 Vapotherm 25.00 40.00 09/27/20 03:00 104 12 96/59 (71) 92 Vapotherm 25.00 40.00 09/27/20 02:18 96 Vapotherm 20.00 40 09/27/20 02:00 96 19 100/61 (74) 100 Vapotherm 25.00 40.00 09/27/20 01:00 89 09/27/20 01:00 89 18 109/65 (80) 99 Vapotherm 25.00 40.00 09/27/20 00:00 101 14 103/61 (75) 94 Vapotherm 25.00 40.00 09/26/20 23:46 36.4 Vapotherm 25.00 40.00 09/26/20 23:00 75 21 110/61 (77) 95 Vapotherm 20.00 40.00 09/26/20 22:25 Vapotherm 20.00 40.00 09/26/20 22:05 92 Vapotherm 20.00 40 09/26/20 22:00 96 20 106/69 (81) 90 Vapotherm 25.00 40.00 09/26/20 21:00 89 23 110/75 (87) 94 Vapotherm 25.00 40.00 09/26/20 20:21 96 Vapotherm 25.00 40 09/26/20 20:17 106 09/26/20 20:00 98 20 121/68 (85) 95 Vapotherm 25.00 40.00 09/26/20 19:06 36.0 09/26/20 19:00 36.6 Vapotherm 25.00 40.00 09/26/20 19:00 99 34 108/60 (76) 90 Vapotherm 25.00 40.00 09/26/20 19:00 112 09/26/20 18:33 97 Vapotherm 20.00 40 09/26/20 17:00 115 30 122/75 (91) 89 Vapotherm 20.00 45.00 09/26/20 16:00 100 25 104/71 (82) 95 Vapotherm 20.00 45.00 09/26/20 15:15 36.5 09/26/20 15:00 93 28 120/85 (97) 95 Vapotherm 20.00 45.00 09/26/20 14:28 97 Vapotherm 20.00 45 09/26/20 14:00 98 31 97/69 (78) 96 Vapotherm 20.00 45.00 09/26/20 13:00 99 19 101/60 (74) 100 Vapotherm 20.00 45.00 09/26/20 12:57 97 09/26/20 12:07 36.2 09/26/20 12:00 102 21 99/66 (77) 100 Vapotherm 20.00 45.00 09/26/20 11:00 112 22 97/69 (78) 99 Vapotherm 20.00 45.00 09/26/20 10:26 99 Vapotherm 20.00 45 09/26/20 10:00 105 23 100/63 (75) 96 Vapotherm 20.00 45.00 09/26/20 09:00 108 21 98/60 (73) 93 Vapotherm 20.00 45.00 09/26/20 08:00 94 Vapotherm 20.00 45 09/26/20 08:00 93 21 88/58 (68) 93 Vapotherm 20.00 45.00 09/26/20 07:58 35.9 09/26/20 07:06 99 Vapotherm 20.00 45 09/26/20 07:00 90 19 89/66 (74) 99 Vapotherm 20.00 45.00 09/26/20 06:40 95 09/26/20 06:00 101 26 97/56 (70) 94 Vapotherm 20.00 45.00 I & O 09/27/20 07:00 Intake Total 1504 ml Output Total 2750 ml Balance -1246 ml Height & Weight Height: 5'6.00" Weight: 144lbs. 1.0oz. 65.524936va; 20.97 BMI Method:Stated General Appearance: No Apparent Distress, WD/WN, Chronically ill HEENT: PERRL/EOMI, Normal ENT Inspection, Pharynx Normal, Moist Mucous Membranes Neck: Full Range of Motion, Normal Inspection, Non Tender Respiratory: No Accessory Muscle Use, No Respiratory Distress, Decreased Breath Sounds Cardiovascular: Regular Rate, Rhythm, Irregularly Irregular, Tachycardia Capillary Refill: Less Than 3 Seconds Extremity: Normal Capillary Refill, Normal Inspection, Normal Range of Motion, Non Tender, No Calf Tenderness, No Pedal Edema Neurologic/Psychiatric: Alert, Disoriented Skin: Normal Color, Warm/Dry Lymphatic: No Adenopathy Results Lab Laboratory Tests 09/25/20 14:23 09/25/20 21:00 09/26/20 03:35 09/27/20 02:45 Assessment/Plan Assessment/Plan Acute respiratory failure -continue Vapotherm 35% Pulmonary edema with hypoxia secondary to CHF -Rapid COVID is negative CHFAE LVEF 50-55% dyastolic dysfunction -Continue Lasix -Cardiology is following -Transfer to ICU Metabolic encephalopathy -Continue Risperadol -D/C Precedex UTI -Rocephin Afib RVR -Ammio gtt is now off -Eliquis Hypokalemia -Replace -Repeat labs at 1400 Valvular heart disease Pulmonary HTN Probably group 2 and 3 -Lasix -Eliquis - continue Oxygen -Monitor -Pt takes Ravatio at home Will continue COPDAE -SVNS -Monitor Hypothyroid -home synthroid Afib -Restart Eliquis Shortness of breath AE CHF COPD afib AMBROSIO KUMAR DO Sep 27, 2020 05:47
[2020-09-27] MEDS ORDERED: KCL 20 MEQ TAB (K-DUR) PO SCH (06:00)
[2020-09-27] MEDS ORDERED: MAGNESIUM 1 GM/100 ML IVPB 100 ML IV SCH (06:00)
[2020-09-27] MEDS ORDERED: POTASSIUM CL 10MEQ/50ML IVPB 50 ML IV SCH (06:00)
[2020-09-27] MEDS: SILDENAFIL 20 MG (REVATIO) TAB NON-FORMULARY PO SCH ×3 (08:26→20:31)
[2020-09-27] MEDS: APIXABAN 5 MG (ELIQUIS) TABLET PO SCH ×2 (08:26→20:31)
[2020-09-27] MEDS: AMOXICILLIN 500 MG (POLYMOX) CAP PO SCH ×3 (08:26→20:30)
[2020-09-27] MEDS: DIGOXIN 0.125 MG (LANOXIN) TAB PO SCH (08:26)
[2020-09-27] MEDS: risperiDONE 1 MG (RisperDAL) TAB PO SCH ×2 (08:26→20:31)
--- NOTE | 2020-09-27 08:49 | Cardiology Progress Note ---
Subjective Date Seen by Provider: Sep 27, 2020 Time Seen by Provider: 08:47 Subjective/Events-last exam Patient was seen at bedside, still having shortness of breath, complaining of dry mouth, no chest pain. Review of Systems General: No Chills, No Night Sweats; Fatigue; No Malaise, No Appetite, No Other HEENT: No Head Aches, No Visual Changes, No Eye Pain, No Ear Pain, No Dysphasia, No Sinus Congestion, No Post Nasal Drip; Sore Throat; No Other Pulmonary: Dyspnea; No Pleuritic Chest Pain, No Other Cardiovascular: No: Chest Pain, Palpitations, Orthopnea, Paroxysmal Noc. Dyspnea, Edema, Lt Headedness, Other Focused Exam Lactate Level 09/24/20 15:45: Lactic Acid Level 0.95 Objective-Cardiology Exam Last Set of Vital Signs Vital Signs 09/27/20 09/27/20 09/27/20 09/27/20 06:00 06:56 07:00 08:38 Temp 36.0 Pulse 110 Resp 16 B/P (MAP) 112/64 (80) Pulse Ox 95 O2 Delivery Vapotherm O2 Flow Rate 30.00 FiO2 40 Capillary Refill : Less Than 3 Seconds I&O Intake and Output 09/27/20 00:00 Intake Total 1654 ml Output Total 2125 ml Balance -471 ml Intake Oral 795 ml IV Total 859 ml Output Urine Total 2125 ml General: Alert, Oriented X3, Cooperative HEENT: Atraumatic, PERRLA Neck: Supple, No JVD, No Thyromegaly Lungs: Normal Air Movement, Other (bilateral rhonchi, diminished air entry) Heart: Normal S1, Normal S2, No Murmurs, Other (atrial fibrillation with ventricular response) Abdomen: Normal Bowel Sounds, Soft, No Tenderness, No Hepatosplenomegaly, No Masses Extremities: No Clubbing, No Cyanosis, No Edema, Normal Pulses, No Tenderne ss/Swelling Skin: No Rashes, No Breakdown, No Significant Lesion Neuro: Normal Gait, Normal Speech, Strength at 5/5 X4 Ext, Normal Tone, Sensation Intact Psych/Mental Status: Mental Status NL, Mood NL Results Lab Laboratory Tests 09/27/20 02:45 A/P-Cardiology Admission Diagnosis Shortness of breath AE CHF COPD afib Assessment/Plan Status post acute respiratory failure, improving slowly, managed by primary care team. Chronic persistent atrial fibrillation, became tachycardic, I discontinued amiodarone due to her extensive underlying lung disease, trying digoxin and diltiazem and will continue monitoring heart rate and blood pressure response. I am hoping that her heart rate will improve once her oxygenation is slightly better Congestive heart failure, acute on chronic left ventricular diastolic dysfunction and valvular heart disease, last echo was done in August 2020 showing ejection fraction 50-55 percent. Biatrial enlargement and moderate to severe mitral and tricuspid regurgitation, severe pulmonary hypertension with PA pressure 80-85 mmHg, maintained on Lasix 40 mg IV twice a day. We will continue for another day then cut down the dose. Appear to be responding well COPD, followed and managed by Dr. Cage, acute exacerbation, her severe pulmonary hypertension is probably due to combination of COPD and mitral re gurgitation Severe pulmonary hypertension, dilated heart chambers, moderate to severe mitral regurgitation. Conservative management H/o nonobstructive CAD per cardiac catheterization August 08, 2015 H/o carotid artery stenosis (right carotid stenting done by Dr. James October 2015) H/o iron deficiency anemia secondary to chronic blood loss H/o hypothyroidism LOUISE SPARROW MD Sep 27, 2020 08:48
--- NOTE | 2020-09-27 10:40 | Progress Note - Hospitalist ---
Subjective HPI/CC On Admission Date Seen by Provider: Sep 27, 2020 Time Seen by Provider: 11:00 CC: SOB HPI: This is 75yoWF known to me from recent hospital stay for CHF and pneumonia with chronic O2 dependency of 5-6 liters at home who presents with exacerbation of CHF. Cardiology has been consulted and Pt required transfer to the ICU after I saw her and consulted Dr. Cage because of worsening SOB and requirements of more oxygen on Vapotherm. Pt otherwise doing well and denies any pain. Subjective/Events-last exam Patient much improved ICU psychosis Patient denies pain Dyspnea noted On Vapotherm Moving to 4th floor Checked meds and labs Review of Systems General: Fatigue Pulmonary: Dyspnea Focused Exam Lactate Level Objective Exam Vital Signs Vital Signs Date Time Temp Pulse Resp B/P (MAP) Pulse Ox O2 Delivery O2 Flow Rate FiO2 09/28/20 02:34 90 Vapotherm 25.00 55 09/28/20 01:00 125 09/27/20 23:49 36.4 22 117/67 (84) Capillary Refill : Less Than 3 Seconds General Appearance: No Apparent Distress, WD/WN, Chronically ill Respiratory: No Accessory Muscle Use, No Respiratory Distress, Decreased Breath Sounds Cardiovascular: Regular Rate, Rhythm Neurologic/Psychiatric: Alert, Oriented x3, No Motor/Sensory Deficits, Normal Mood/Affect Results/Procedures Lab Patient resulted labs reviewed. Assessment/Plan Assessment and Plan Assess & Plan/Chief Complaint Assessment: AECOPD CHF AF O2 dependency PVD Plan: Transfer to ICU Monitor O2 09/26/20: Delirium management O2 Vapotherm Monitor AF 09/27/20: Monitor O2 AF management per Cardiology Vapotherm Diagnosis/Problems Diagnosis/Problems (1) Acute exacerbation of CHF (congestive heart failure) Status: Acute (2) Acute on chronic respiratory failure with hypoxia Status: Acute (3) COPD (chronic obstructive pulmonary disease) Status: Acute (4) Hypoxia Status: Acute (5) On continuous oral anticoagulation Status: Acute (6) Chronic atrial fibrillation Status: Acute ANAT REBOLLAR DO Sep 27, 2020 10:40
[2020-09-27] MEDS ORDERED: dilTIAZem120 MG (CARDIZEM CD) CAP PO SCH (18:00)
[2020-09-27] MEDS: MONTELUKAST 10 MG (SINGULAIR) TAB PO SCH (20:31)
[2020-09-28] MEDS: RT-ALBUTEROL INHALER HFA (VENTOLIN HFA) 18 GM IH SCH ×6 (02:33→21:48)
[2020-09-28 04:00] VITALS: BP 147/76
[2020-09-28 05:43] LABS: BASOPHILS % (AUTO) 0 % (0-10); EOSINOPHILS % (AUTO) 0 % (0-10); HEMATOCRIT 44 % (35-52); HEMOGLOBIN 14.8 g/dL (11.5-16.0); LYMPHOCYTES # (AUTO) 0.2 10^3/uL (1.0-4.0); LYMPHOCYTES % (AUTO) 1 % (12-44); MEAN CORPUSCULAR HEMOGLOBIN 33 pg (25-34); MEAN CORPUSCULAR HGB CONC 33 g/dL (32-36); MEAN CORPUSCULAR VOLUME 99 fL (80-99); MEAN PLATELET VOLUME 10.4 fL (9.0-12.2); MONOCYTES # (AUTO) 0.9 10^3/uL (0.0-1.0); MONOCYTES % (AUTO) 7 % (0-12); NEUTROPHILS # (AUTO) 12.2 10^3/uL (1.8-7.8); NEUTROPHILS % (AUTO) 91 % (42-75); PLATELET COUNT 281 10^3/uL (130-400); WHITE BLOOD COUNT 13.3 10^3/uL (4.3-11.0)
[2020-09-28 05:56] LABS: POTASSIUM 4.2 MMOL/L (3.6-5.0)
[2020-09-28 05:57] LABS: CALCIUM 8.8 MG/DL (8.5-10.1)
[2020-09-28 06:01] LABS: CREATININE SERUM 1.03 MG/DL (0.60-1.30)
[2020-09-28] MEDS: methylPREDNISolone 40 MG/ML (Solu-MEDROL) VIAL IV SCH ×2 (06:20→17:08)
[2020-09-28] MEDS: FUROSEMIDE 40 MG/4 ML INJ (LASIX) IVP SCH (06:20)
[2020-09-28] MEDS: PANTOPRAZOLE 40 MG (PROTONIX) TAB PO SCH (06:20)
[2020-09-28] MEDS: LEVOTHYROXINE 100 MCG (LEVOTHROID) TAB PO SCH (06:20)
--- NOTE | 2020-09-28 06:53 | Pulmonary Progress Note ---
Subjective Time Seen by a Provider: 06:51 Sepsis Event Evaluation Height, Weight, BMI Height: 5'6.00" Weight: 144lbs. 1.0oz. 65.870300jb; 20.97 BMI Method:Stated Exam Exam Vital Signs Date Time Temp Pulse Resp B/P (MAP) Pulse Ox O2 Delivery O2 Flow Rate FiO2 09/28/20 04:00 36.4 109 24 147/76 (99) 93 Vapotherm 25.00 55.00 09/28/20 02:34 90 Vapotherm 25.00 55 09/28/20 01:00 125 09/27/20 23:49 36.4 107 22 117/67 (84) 95 Vapotherm 25.00 55.00 09/27/20 22:31 94 Vapotherm 25.00 55 09/27/20 20:20 Vapotherm 25.00 55 09/27/20 19:14 94 Vapotherm 30.00 60 09/27/20 19:00 36.0 112 24 130/82 (98) 95 Vapotherm 30.00 60.00 09/27/20 19:00 125 09/27/20 16:15 37.0 120 24 130/58 (82) 97 Vapotherm 30.00 40.00 09/27/20 15:13 92 Vapotherm 30.00 60 09/27/20 13:10 37.5 110 91 40 09/27/20 13:00 110 09/27/20 12:56 37.5 110 26 116/72 (87) 91 Vapotherm 30.00 40.00 09/27/20 10:35 92 Vapotherm 30.00 40 09/27/20 10:00 118 26 94 Vapotherm 25.00 40.00 09/27/20 09:00 117 16 120/66 (84) 91 Vapotherm 25.00 40.00 09/27/20 08:40 92 Vapotherm 30.00 40 09/27/20 08:38 36.0 09/27/20 08:00 131 21 119/61 (80) 95 Vapotherm 25.00 40.00 09/27/20 07:00 113 9 103/65 (78) 94 Vapotherm 25.00 40.00 09/27/20 07:00 110 09/27/20 06:56 95 Vapotherm 30.00 40 I & O 09/28/20 07:00 Intake Total 720 ml Output Total 1450 ml Balance -730 ml Height & Weight Height: 5'6.00" Weight: 144lbs. 1.0oz. 65.165508zk; 20.97 BMI Method:Stated General Appearance: No Apparent Distress, WD/WN, Chronically ill HEENT: PERRL/EOMI, Normal ENT Inspection, Pharynx Normal, Moist Mucous Membranes Neck: Full Range of Motion, Normal Inspection, Non Tender Respiratory: No Accessory Muscle Use, No Respiratory Distress, Decreased Breath Sounds Cardiovascular: Regular Rate, Rhythm Capillary Refill: Less Than 3 Seconds Extremity: Normal Capillary Refill, Normal Inspection, Normal Range of Motion, Non Tender, No Calf Tenderness, No Pedal Edema Neurologic/Psychiatric: Alert, Oriented x3, No Motor/Sensory Deficits, Normal Mood/Affect Skin: Normal Color, Warm/Dry Lymphatic: No Adenopathy Results Lab Laboratory Tests 09/27/20 02:45 09/28/20 05:14 Assessment/Plan Assessment/Plan Acute respiratory failure -continue Vapotherm 35% Pulmonary edema with hypoxia secondary to CHF -Rapid COVID is negative CHFAE LVEF 50-55% dyastolic dysfunction -Continue Lasix -Cardiology is following -Transfer to ICU Metabolic encephalopathy -Risperadol UTI -Rocephin -- Now on Amoxil Afib RVR -Cardiology is following -Eliquis Valvular heart disease Pulmonary HTN Probably group 2 and 3 -Lasix -Eliquis - continue Oxygen -Monitor -Pt takes Ravatio at home Will continue COPDAE -SVNS -Monitor Hypothyroid -home synthroid Afib -Restart Eliquis Shortness of breath AE CHF COPD afib AMBROSIO KUMAR DO Sep 28, 2020 06:53
[2020-09-28 08:02] VITALS: BP 124/79
[2020-09-28] MEDS: DIGOXIN 0.125 MG (LANOXIN) TAB PO SCH (08:29)
[2020-09-28] MEDS: SILDENAFIL 20 MG (REVATIO) TAB NON-FORMULARY PO SCH ×4 (08:29→20:58)
[2020-09-28] MEDS: AMOXICILLIN 500 MG (POLYMOX) CAP PO SCH ×3 (08:29→20:56)
[2020-09-28] MEDS: APIXABAN 5 MG (ELIQUIS) TABLET PO SCH ×2 (08:29→20:56)
[2020-09-28] MEDS: risperiDONE 1 MG (RisperDAL) TAB PO SCH ×2 (08:29→20:56)
--- NOTE | 2020-09-28 11:40 | Progress Note - Hospitalist ---
Subjective HPI/CC On Admission Date Seen by Provider: Sep 28, 2020 Time Seen by Provider: 10:30 CC: SOB HPI: This is 75yoWF known to me from recent hospital stay for CHF and pneumonia with chronic O2 dependency of 5-6 liters at home who presents with exacerbation of CHF. Cardiology has been consulted and Pt required transfer to the ICU after I saw her and consulted Dr. Cage because of worsening SOB and requirements of more oxygen on Vapotherm. Pt otherwise doing well and denies any pain. Subjective/Events-last exam Patient doing well Weaning down from Vapotherm Psychosis improved at bedside PT OT ordered Review of Systems General: Fatigue, Malaise Neurological: Weakness Objective Exam Vital Signs Vital Signs Date Time Temp Pulse Resp B/P (MAP) Pulse Ox O2 Delivery O2 Flow Rate FiO2 09/29/20 06:54 93 Vapotherm 15.00 45 09/29/20 04:00 36.6 115 20 139/70 (93) Capillary Refill : Less Than 3 Seconds General Appearance: No Apparent Distress, WD/WN, Chronically ill Respiratory: No Accessory Muscle Use, No Respiratory Distress, Decreased Breath Sounds Cardiovascular: Regular Rate, Rhythm Neurologic/Psychiatric: Alert, Oriented x3, No Motor/Sensory Deficits, Normal Mood/Affect Results/Procedures Lab Laboratory Tests 09/29/20 04:45 Patient resulted labs reviewed. Assessment/Plan Assessment and Plan Assess & Plan/Chief Complaint Assessment: AECOPD CHF AF O2 dependency PVD Plan: Transfer to ICU Monitor O2 09/26/20: Delirium management O2 Vapotherm Monitor AF 09/27/20: Monitor O2 AF management per Cardiology Vapotherm 09/28/20: Vapotherm wean PT OT Diagnosis/Problems Diagnosis/Problems (1) Acute exacerbation of CHF (congestive heart failure) Status: Acute (2) Acute on chronic respiratory failure with hypoxia Status: Acute (3) COPD (chronic obstructive pulmonary disease) Status: Acute (4) Hypoxia Status: Acute (5) On continuous oral anticoagulation Status: Acute (6) Chronic atrial fibrillation Status: Acute ANAT REBOLLAR DO Sep 28, 2020 11:40
[2020-09-28 12:28] VITALS: BP 101/59
--- NOTE | 2020-09-28 12:42 | Cardiology Progress Note ---
Subjective Date Seen by Provider: Sep 28, 2020 Time Seen by Provider: 12:40 Subjective/Events-last exam Patient was seen at bedside, sitting comfortably, still using Vapotherm, atrial fibrillation with borderline tachycardia Review of Systems General: No Chills, No Night Sweats; Fatigue; No Malaise, No Appetite, No Other HEENT: No Head Aches, No Visual Changes, No Eye Pain, No Ear Pain, No Dysphasia, No Sinus Congestion, No Post Nasal Drip, No Sore Throat, No Other Pulmonary: Dyspnea; No Cough, No Pleuritic Chest Pain, No Other Cardiovascular: No: Chest Pain, Palpitations, Orthopnea, Paroxysmal Noc. Dyspnea, Edema, Lt Headedness, Other Objective-Cardiology Exam Last Set of Vital Signs Vital Signs 09/28/20 09/28/20 10:03 12:28 Temp 37.0 Pulse 124 Resp 20 B/P (MAP) 101/59 (73) Pulse Ox 92 O2 Delivery Vapotherm O2 Flow Rate 15.00 55.00 FiO2 55 Capillary Refill : Less Than 3 Seconds I&O Intake and Output 09/28/20 00:00 Intake Total 831 ml Output Total 1875 ml Balance -1044 ml Intake Oral 670 ml IV Total 161 ml Output Urine Total 1875 ml General: Alert, Oriented X3, Cooperative HEENT: Atraumatic, PERRLA Neck: Supple, No JVD, No Thyromegaly Lungs: Normal Air Movement, Other (bilateral rhonchi, diminished air entry) Heart: Normal S1, Normal S2, No Murmurs, Other (atrial fibrillation with ventricular response) Abdomen: Normal Bowel Sounds, Soft, No Tenderness, No Hepatosplenomegaly, No Masses Extremities: No Clubbing, No Cyanosis, No Edema, Normal Pulses, No Tenderness/Swelling Skin: No Rashes, No Breakdown, No Significant Lesion Neuro: Normal Gait, Normal Speech, Strength at 5/5 X4 Ext, Normal Tone, Sensation Intact Psych/Mental Status: Mental Status NL, Mood NL Results Lab Laboratory Tests 09/28/20 05:14 A/P-Cardiology Admission Diagnosis Shortness of breath AE CHF COPD afib Assessment/Plan Status post acute respiratory failure, improving slowly, managed by primary care team. Chronic persistent atrial fibrillation, sewed of tachycardia most probably due to her severe respiratory failure and hypoxemia. I am titrating her medications slowly and monitoring her oxygenation. Congestive heart failure, acute on chronic left ventricular diastolic dysfunction and valvular heart disease, last echo was done in August 2020 showing ejection fraction 50-55 percent. Biatrial enlargement and moderate to severe mitral and tricuspid regurgitation, severe pulmonary hypertension with PA pressure 80-85 mmHg, continue on Lasix and changed to oral dose COPD, followed and managed by Dr. Cage, acute exacerbation, her severe pulmonary hypertension is probably due to combination of COPD and mitral regurgitation Severe pulmonary hypertension, dilated heart chambers, moderate to severe mitral regurgitation. Conservative management H/o nonobstructive CAD per cardiac catheterization August 08, 2015 H/o carotid artery stenosis (right carotid stenting done by Dr. James October 2015) H/o iron deficiency anemia secondary to chronic blood loss H/o hypothyroidism LOUISE SPARROW MD Sep 28, 2020 12:42 pm
--- NOTE | 2020-09-28 12:53 | Physical Therapy Evaluation ---
PT Evaluation-General Medical Diagnosis Admission Date Sep 24, 2020 at 17:51 Medical Diagnosis: acute exacerbation CHF Onset Date: Sep 24, 2020 Therapy Diagnosis Therapy Diagnosis: generalized weakness/debility/decreased pulmonary function Height/Weight Height (Feet): 5 Height (Inches): 6.00 Weight (Pounds): 144 Weight (Ounces): 1.0 Precautions Precautions/Isolations: Fall Prevention, Standard Precautions Referral Physician: Camilla Reason for Referral: Evaluation/Treatment Medical History Pertinent Medical History: Atrial Fib, COPD, Heart Failure, HTN, PVD Additional Medical History O2 dependent 5-6L at home PLOF Current History ER secondary to increase SOA with increase O2 demand Reviewed History: Yes Social History Home: Single Level Current Living Status: Spouse Entry Into Home: Stairs With Railing PT Steps Into Home: 4 Prior Prior Level of Function SCALE: Activities may be completed with or without assistive devices. 5-Xndtrrmhir-wqhjftz completes the activity by him/herself with no assistance from a helper. 5-Set-up or Clean-up Assistance-helper sets up or cleans up; patient completes a ctivity. Martin assists only prior to or following the activity. 4-Supervision or Touching Assistance-helper provides verbal cues and/or touching/steadying and/or contact guard assistance as patient completes activity. Assistance may be provided throughout the activity or intermittently. 3-Partial/Moderate Assistance-helper does LESS THAN HALF the effort. Martin lifts, holds or supports trunk or limbs, but provides less than half the effort. 2-Substantial/Maximal Assistance-helper does MORE THAN HALF the effort. Martin lifts or holds trunk or limbs and provides more than half the effort. 4-Lgggdaapg-nvkzqy does ALL the effort. Patient does none of the effort to complete the activity. Or, the assistance of 2 or more helpers is required for the patient to complete the activity. If activity was not attempted, code reason: 7-Patient Refused. 9-Not Applicable-not attempted and the patient did not perform the activity before the current illness, exacerbation or injury. 10-Not Attempted due to Environmental Limitations-(lack of equipment, weather restraints, etc.). 88-Not Attempted due to Medical Conditions or Safety Concerns. Bed Mobility: 6 Transfers (B,C,W/C): 6 Gait: 6 Stairs: 6 Wheelchair Mobility: 9 Indoor Mobility (Ambulation): Independent Stairs: Independent Prior Devices Use: Walker (PRN) PT Evaluation-Current Subjective Patient currently on vapotherm. Agrees to PT. Objective Patient Orientation: Normal For Age Attachments: Oxygen (vapotherm), Gentile Catheter ROM/Strength ROM Lower Extremities bilateral LE WFL Strength Lower Extremities 3-/5 grossly bilateral LE Integumentary/Posture Integumentary refer to nursing notes Bowel Incontinence: Yes Bladder Incontinence: Gentile Cath Posture WFL Neuromuscular (Tone, Coordination, Reflexes) diminished coordination due to weakness Sensory Vision: Functional Hearing: Functional Transfers Roll Left to Right (QC): 3 Sit to Lying (QC): 2 Lying to Sitting/Side of Bed(Q: 2 Sit to Stand (QC): 2 Chair/Tqv-sr-Bivew Xfer(QC): 2 Gait Does the Patient Walk?: No and Walking Goal IS indicated Balance Sitting Static: Fair Sitting Dynamic: Fair Standing Static: Poor Standing Dynamic: Poor Treatment SAO2 decrease to 72% on vapotherm with very slow recovery to 90% (~4 min with RN present) Assessment/Needs 75 y.o. female, will benefit from skilled PT to address functional strength, mobility and pulmonary function, to improve current LOF to safely return to home with spouse at maximum LOF. Rehab Potential: Guarded (O2 demand/decreased SAO2 with minimal activity) PT Retirement Goals Circle Beveler Goals PT Circle Beveler Goals Time Frame: Oct 13, 2020 Roll Left & Right (QC): 5 Sit to Lying (QC): 5 Lying-Sitting on Side/Bed(QC): 5 Sit to Stand (QC): 5 Chair/Juf-tu-Zrvvl Xfer(QC): 5 Toilet Transfer (QC): 5 Car Transfer (QC): 5 Does the Patient Walk: Yes Walk 10 feet (QC): 5 Walk 50ft with 2 Turns (QC): 5 Walk 150 ft (QC): 5 Walking 10ft on Uneven Surface: 5 1 Step (curb) (QC): 5 4 Steps (QC): 5 12 Steps (QC): 9 PT Plan Problem List Problem List: Activity Tolerance, Functional Strength, Safety, Balance, Gait, Transfer, Bed Mobility, Other (pulmonary function) Treatment/Plan Treatment Plan: Continue Plan of Care Treatment Plan: Bed Mobility, Education, Functional Activity Adonay, Functional Strength, Gait, Safety, Therapeutic Exercise, Transfers Treatment Duration: Oct 13, 2020 Frequency: 6 times per week Estimated Hrs Per Day: .25 hour per day Patient and/or Family Agrees t: Yes Time/GCodes Time In: 1135 Time Out: 1154 Total Billed Treatment Time: 19 Total Billed Treatment 1 visit EVModC 19 min JILLIAN QUACH PT Sep 28, 2020 12:53
--- NOTE | 2020-09-28 13:51 | Occupational Therapy Eval ---
OT Evaluation-General/PLF Medical Diagnosis Admission Date Sep 24, 2020 at 17:51 Medical Diagnosis: acute exacerbation CHF Onset Date: Sep 24, 2020 Therapy Diagnosis Therapy Diagnosis: weakness, decreased ADL Status Height/Weight Height (Feet): 5 Height (Inches): 6.00 Weight (Pounds): 144 Weight (Ounces): 1.0 Precautions Precautions/Isolations: Fall Prevention, Standard Precautions Referral Physician: Camilla Referral Reason: Evaluation/Treatment Medical History Pertinent Medical History: Atrial Fib, COPD, Heart Failure, HTN, PVD Additional Medical History CHF, Raynauds, R carotid stent, afib, swelling/edema, HTN, pulmonary HTN, lumpectomy, GERD, hypothyroidism Current History ER secondary to increase SOA with increase O2 demand O2 dependent at home 5-6 L Social History Home: Single Level Current Living Status: Spouse Entry Into Home: Stairs With Railing Steps Into Home: 4 ADL-Prior Level of Function SCALE: Activities may be completed with or without assistive devices. 0-Oxzpbymory-hmwxfvs completes the activity by him/herself with no assistance from a helper. 5-Set-up or Clean-up Assistance-helper sets up or cleans up; patient completes activity. Breeding assists only prior to or following the activity. 4-Supervision or Touching Assistance-helper provides verbal cues and/or touching/steadying and/or contact guard assistance as patient completes activity. Assistance may be provided throughout the activity or intermittently. 3-Partial/Moderate Assistance-helper does LESS THAN HALF the effort. Breeding lifts, holds or supports trunk or limbs, but provides less than half the effort. 2-Substantial/Maximal Assistance-helper does MORE THAN HALF the effort. Breeding lifts or holds trunk or limbs and provides more than half the effort. 8-Kcsddgfft-ziacec does ALL the effort. Patient does none of the effort to complete the activity. Or, the assistance of 2 or more helpers is required for the patient to complete the activity. If activity was not attempted, code reason: 7-Patient Refused. 9-Not Applicable-not attempted and the patient did not perform the activity before the current illness, exacerbation or injury. 10-Not Attempted due to Environmental Limitations-(lack of equipment, weather restraints, etc.). 88-Not Attempted due to Medical Conditions or Safety Concerns. ADL PLOF Comments Pt's indicates pt required assistance at home with ADLs, assist with bathing/dressing. Pt uses a walker PRN for functional mobility. Self Care: Needed Some Help Functional Cognition: Needed Some Help DME/Equipment: Bath Chair, Shower OT Current Status Subjective Pt seated in recliner, agreeable to OT tx. present. OT assisted pt with ordering lunch. Current Glasses/Contacts: Yes Upper Extremity Coordination due to weakness Upper Extremity Strength grossly 3-/5 ADL-Treatment Oral Hygiene (QC): 4 (SBA, pt required min verbal cues and increased time with task.) Other Treatments OT educated pt on purpose and benefit of OT, she verbalized understanding. Pt provided information about PLOF and home set up. OT set up for oral care, pt brushed teeth with increased time requiring minimal cues with task. OT assisted pt with ordering lunch. Pt O2 sat dropped to 88% with oral care, but increased back to 90% within a few seconds and cues to breathe. Pt brushed hair and washed face with set up. Post tx, pt seated in recliner, call light in reach and all needs met. Education OT Patient Education: Correct positioning, Modified ADL techniques, Progress toward Goal/Update tx plan, Purpose of tx/functional activities Teaching Recipient: Patient, Significant Other Teaching Methods: Discussion Response to Teaching: Reinforcement Needed OT Long-Term Goals 3D Technologist Goals Time Frame: Oct 12, 2020 Eating (QC): 5 Oral Hygiene (QC): 5 Toileting Hygiene (QC): 3 Shower/Bathe Self (QC): 3 Upper Body Dressing (QC): 3 Lower Body Dressing (QC): 3 On/Off Footwear (QC): 3 Additional Goals: 1-Demonstrate ADL Tasks, 2-Verbalize Understanding, 3- ImproveStrength/Adonay 1=Demonstrate adherence to instructed precautions during ADL tasks. 2=Patient will verbalize/demonstrate understanding of assistive devic es/modifications for ADL. 3=Patient will improve strength/tolerance for activity to enable patient to perform ADL's. OT Education/Plan Problem List/Assessment Assessment: Decreased Activ Tolerance, Decreased UE Strength, Impaired I ADL's, Impaired Self-Care Skills, Restricted Funct UE ROM Discharge Recommendations Plan/Recommendations: Continue POC Treatment Plan/Plan of Care Patient would benefit from OT for education, treatment and training to promote independence in ADL's, mobility, safety and/or upper extremity function for ADL' s. Plan of Care: ADL Retraining, Functional Mobility, UE Funct Exercise/Act Treatment Duration: Oct 12, 2020 Frequency: 5 times per week Estimated Hrs Per Day: .25 hour per day Rehab Potential: Guarded (O2 demand/decreased SAO2 with minimal activity) Time/GCodes Start Time: 13:10 Stop Time: 13:25 Total Time Billed (hr/min): 15 Billed Treatment Time 1, ANNA MASCORRO OT Sep 28, 2020 13:51
[2020-09-28 15:25] VITALS: BP 107/67
[2020-09-28] MEDS: FUROSEMIDE 40 MG (LASIX) TAB PO SCH (16:13)
[2020-09-28 17:05] VITALS: BP 116/60
[2020-09-28 19:16] VITALS: BP 134/73
[2020-09-28] MEDS: MONTELUKAST 10 MG (SINGULAIR) TAB PO SCH (20:56)
[2020-09-29 00:16] VITALS: BP 135/75
[2020-09-29] MEDS: RT-ALBUTEROL INHALER HFA (VENTOLIN HFA) 18 GM IH SCH ×6 (01:58→21:18)
[2020-09-29 04:00] VITALS: BP 139/70
[2020-09-29 05:17] LABS: BASOPHILS % (AUTO) 0 % (0-10); EOSINOPHILS % (AUTO) 0 % (0-10); HEMATOCRIT 43 % (35-52); HEMOGLOBIN 14.7 g/dL (11.5-16.0); LYMPHOCYTES # (AUTO) 0.2 10^3/uL (1.0-4.0); LYMPHOCYTES % (AUTO) 2 % (12-44); MEAN CORPUSCULAR HEMOGLOBIN 34 pg (25-34); MEAN CORPUSCULAR HGB CONC 34 g/dL (32-36); MEAN CORPUSCULAR VOLUME 98 fL (80-99); MEAN PLATELET VOLUME 10.5 fL (9.0-12.2); MONOCYTES # (AUTO) 0.7 10^3/uL (0.0-1.0); MONOCYTES % (AUTO) 8 % (0-12); NEUTROPHILS # (AUTO) 8.2 10^3/uL (1.8-7.8); NEUTROPHILS % (AUTO) 90 % (42-75); PLATELET COUNT 246 10^3/uL (130-400); WHITE BLOOD COUNT 9.2 10^3/uL (4.3-11.0)
[2020-09-29 05:30] LABS: CHLORIDE 95 MMOL/L (98-107); POTASSIUM 3.8 MMOL/L (3.6-5.0); SODIUM 141 MMOL/L (135-145)
[2020-09-29 05:32] LABS: CALCIUM 8.5 MG/DL (8.5-10.1); GLUCOSE 152 MG/DL (70-105)
[2020-09-29 05:34] LABS: CARBON DIOXIDE 30 MMOL/L (21-32)
[2020-09-29 05:36] LABS: CREATININE SERUM 0.88 MG/DL (0.60-1.30); GFR ESTIMATED > 60
[2020-09-29 05:37] LABS: BUN/CREATININE RATIO 22
[2020-09-29 05:38] LABS: MAGNESIUM 2.1 MG/DL (1.6-2.4)
[2020-09-29] MEDS: methylPREDNISolone 40 MG/ML (Solu-MEDROL) VIAL IV SCH ×2 (06:34→18:12)
[2020-09-29] MEDS: LEVOTHYROXINE 100 MCG (LEVOTHROID) TAB PO SCH (06:34)
[2020-09-29] MEDS: FUROSEMIDE 40 MG (LASIX) TAB PO SCH ×2 (06:34→18:10)
[2020-09-29] MEDS: PANTOPRAZOLE 40 MG (PROTONIX) TAB PO SCH (06:34)
--- NOTE | 2020-09-29 07:16 | Progress Note - Hospitalist ---
Subjective HPI/CC On Admission Date Seen by Provider: Sep 29, 2020 Time Seen by Provider: 11:15 CC: SOB HPI: This is 75yoWF known to me from recent hospital stay for CHF and pneumonia with chronic O2 dependency of 5-6 liters at home who presents with exacerbation of CHF. Cardiology has been consulted and Pt required transfer to the ICU after I saw her and consulted Dr. Cage because of worsening SOB and requirements of more oxygen on Vapotherm. Pt otherwise doing well and denies any pain. Subjective/Events-last exam Patient had an episode of tachycardia from hypoxia so restarted Vapotherm and now is doing well Long talk with and we decided to make her DNR Patient appears weakened Confusion continues Checked meds and labs Review of Systems General: Fatigue Pulmonary: Dyspnea Neurological: Confusion Objective Exam Vital Signs Vital Signs Date Time Temp Pulse Resp B/P (MAP) Pulse Ox O2 Delivery O2 Flow Rate FiO2 09/29/20 19:20 80 Vapotherm 15.00 55 09/29/20 19:00 114 09/29/20 15:57 36.6 20 113/57 (75) Capillary Refill : Less Than 3 Seconds General Appearance: No Apparent Distress, WD/WN, Anxious, Chronically ill Respiratory: Lungs Clear, Decreased Breath Sounds Cardiovascular: Irregularly Irregular, Tachycardia Neurologic/Psychiatric: Alert, Oriented x3, No Motor/Sensory Deficits, Normal Mood/Affect Results/Procedures Lab Laboratory Tests 09/29/20 04:45 Patient resulted labs reviewed. Assessment/Plan Assessment and Plan Assess & Plan/Chief Complaint Assessment: AECOPD CHF AF O2 dependency PVD Plan: Transfer to ICU Monitor O2 09/26/20: Delirium management O2 Vapotherm Monitor AF 09/27/20: Monitor O2 AF management per Cardiology Vapotherm 09/28/20: Vapotherm wean PT OT 09/29/20: Back on Vapotherm AF managed by Dr Russell DNR now Diagnosis/Problems Diagnosis/Problems (1) Acute exacerbation of CHF (congestive heart failure) Status: Acute (2) Acute on chronic respiratory failure with hypoxia Status: Acute (3) COPD (chronic obstructive pulmonary disease) Status: Acute (4) Hypoxia Status: Acute (5) On continuous oral anticoagulation Status: Acute (6) Chronic atrial fibrillation Status: Acute ANAT REBOLLAR DO Sep 29, 2020 07:16
[2020-09-29 08:00] VITALS: BP 125/66
--- NOTE | 2020-09-29 08:05 | Physical Therapy Daily Note ---
PT Daily Note-Current Subjective Patient agrees to PT. Remains on Vapotherm Pain Numeric Pain Scale: 0-No Pain Location: No Pain Reported Mental Status Patient Orientation: Person, Place, Time Attachments: Oxygen (vapotherm), Genitle Catheter Transfers SCALE: Activities may be completed with or without assistive devices. 3-Yftjtqxywx-ypqshyp completes the activity by him/herself with no assistance from a helper. 5-Set-up or Clean-up Assistance-helper sets up or cleans up; patient completes activity. [place] assists only prior to or following the activity. 4-Supervision or Touching Assistance-helper provides verbal cues and/or touching/steadying and/or contact guard assistance as patient completes activity. Assistance may be provided throughout the activity or intermittently. 3-Partial/Moderate Assistance-helper does LESS THAN HALF the effort. [place] lifts, holds or supports trunk or limbs, but provides less than half the effort. 2-Substantial/Maximal Assistance-helper does MORE THAN HALF the effort. [place] lifts or holds trunk or limbs and provides more than half the effort. 2-Mzopksvvb-kuimxf does ALL the effort. Patient does none of the effort to complete the activity. Or, the assistance of 2 or more helpers is required for the patient to complete the activity. If activity was not attempted, code reason: 7-Patient Refused. 9-Not Applicable-not attempted and the patient did not perform the activity before the current illness, exacerbation or injury. 10-Not Attempted due to Environmental Limitations-(lack of equipment, weather restraints, etc.). 88-Not Attempted due to Medical Conditions or Safety Concerns. Lying to Sitting/Side of Bed(Q: 2 Sit to Stand (QC): 2 Chair/Awd-bu-Whmds Xfer(QC): 2 Gait Training Does the Patient Walk?: No and Walking Goal IS indicated Exercises Seated Therapy Exercises: Ankle pumps, Long arc quads, Hip flexion Seated Reps: 12 Assessment Patient SAO2 decreases to 72% on vapotherm with activity with elevated HR into the 140's. RN is aware. Patient is up in recliner recovered with SAO2 90%. PT Coagulating Drying Supervisor Goals Mcc Goals PT Mcc Goals Time Frame: Oct 13, 2020 Roll Left & Right (QC): 5 Sit to Lying (QC): 5 Lying-Sitting on Side/Bed(QC): 5 Sit to Stand (QC): 5 Chair/Lic-vl-Gctko Xfer(QC): 5 Toilet Transfer (QC): 5 Car Transfer (QC): 5 Does the Patient Walk: Yes Walk 10 feet (QC): 5 Walk 50ft with 2 Turns (QC): 5 Walk 150 ft (QC): 5 Walking 10ft on Uneven Surface: 5 1 Step (curb) (QC): 5 4 Steps (QC): 5 12 Steps (QC): 9 PT Plan Treatment/Plan Treatment Plan: Continue Plan of Care Treatment Plan: Bed Mobility, Education, Functional Activity Adonay, Functional Strength, Gait, Safety, Therapeutic Exercise, Transfers Treatment Duration: Oct 13, 2020 Frequency: 6 times per week Estimated Hrs Per Day: .25 hour per day Patient and/or Family Agrees t: Yes Time/GCodes Time In: 751 Time Out: 801 Total Billed Treatment Time: 10 Total Billed Treatment 1 visit EX 10 min JILLIAN QUACH PT Sep 29, 2020 08:05
[2020-09-29] MEDS: APIXABAN 5 MG (ELIQUIS) TABLET PO SCH ×2 (08:34→20:42)
[2020-09-29] MEDS: AMOXICILLIN 500 MG (POLYMOX) CAP PO SCH ×3 (08:34→20:42)
[2020-09-29] MEDS: DIGOXIN 0.125 MG (LANOXIN) TAB PO SCH (08:34)
[2020-09-29] MEDS: risperiDONE 1 MG (RisperDAL) TAB PO SCH ×2 (08:34→20:42)
[2020-09-29] MEDS: SILDENAFIL 20 MG (REVATIO) TAB NON-FORMULARY PO SCH ×3 (08:35→20:42)
--- NOTE | 2020-09-29 10:50 | Cardiology Progress Note ---
Subjective Date Seen by Provider: Sep 29, 2020 Time Seen by Provider: 10:48 Subjective/Events-last exam Patient is sitting in bed, still having shortness of breath, noted to be tachycardic and hypoxemic today. Review of Systems General: No Chills, No Night Sweats; Fatigue; No Malaise, No Appetite, No Other HEENT: No Head Aches, No Visual Changes, No Eye Pain, No Ear Pain, No Dysphasia, No Sinus Congestion, No Post Nasal Drip, No Sore Throat, No Other Pulmonary: Dyspnea; No Cough, No Pleuritic Chest Pain, No Other Cardiovascular: No: Chest Pain, Palpitations, Orthopnea, Paroxysmal Noc. Dyspnea, Edema, Lt Headedness, Other Objective-Cardiology Exam Last Set of Vital Signs Vital Signs 09/29/20 09/29/20 08:00 10:02 Temp 36.8 Pulse 109 Resp 20 B/P (MAP) 125/66 (85) Pulse Ox 98 O2 Delivery Vapotherm O2 Flow Rate 15.00 FiO2 75 Capillary Refill : Less Than 3 Seconds I&O Intake and Output 09/29/20 00:00 Intake Total 1430 ml Output Total 2025 ml Balance -595 ml Intake Oral 1430 ml Output Urine Total 2025 ml # Bowel Movements 1 General: Alert, Oriented X3, Cooperative HEENT: Atraumatic, PERRLA Neck: Supple, No JVD, No Thyromegaly Lungs: Normal Air Movement, Other (bilateral rhonchi, diminished air entry) Heart: Normal S1, Normal S2, No Murmurs, Other (atrial fibrillation with ventricular response) Abdomen: Normal Bowel Sounds, Soft, No Tenderness, No Hepatosplenomegaly, No Masses Extremities: No Clubbing, No Cyanosis, No Edema, Normal Pulses, No Tenderness/Swelling Skin: No Rashes, No Breakdown, No Significant Lesion Neuro: Normal Gait, Normal Speech, Strength at 5/5 X4 Ext, Normal Tone, Sensation Intact Psych/Mental Status: Mental Status NL, Mood NL Results Lab Laboratory Tests 09/29/20 04:45 A/P-Cardiology Admission Diagnosis Shortness of breath AE CHF COPD afib Assessment/Plan Status post acute respiratory failure, improving slowly, managed by primary care team. Chronic persistent atrial fibrillation, still having significant tachycardia due to her hypoxemia. She is tolerating her medications well. Continue on Cardizem, monitor blood pressure closely. Titrate up her Vapotherm level, continue to monitor Congestive heart failure, acute on chronic left ventricular diastolic dysfunction and valvular heart disease, last echo was done in August 2020 showing ejection fraction 50-55 percent. Biatrial enlargement and moderate to severe mitral and tricuspid regurgitation, severe pulmonary hypertension with PA pressure 80-85 mmHg, COPD, followed and managed by Dr. Cage, acute exacerbation, her severe pulmonary hypertension is probably due to combination of COPD and mitral regurgitation Severe pulmonary hypertension, dilated heart chambers, moderate to severe mitral regurgitation. Conservative management H/o nonobstructive CAD per cardiac catheterization August 08, 2015 H/o carotid artery stenosis (right carotid stenting done by Dr. James October 2015) H/o iron deficiency anemia secondary to chronic blood loss H/o hypothyroidism LOUISE SPARROW MD Sep 29, 2020 10:50 am
[2020-09-29 12:05] VITALS: BP 123/65
[2020-09-29 15:57] VITALS: BP 113/57
[2020-09-29 19:41] VITALS: BP 122/62
[2020-09-29] MEDS: MONTELUKAST 10 MG (SINGULAIR) TAB PO SCH (20:42)
[2020-09-30] VITALS (7 sets, daily range): BP systolic 102–138; BP diastolic 55–83
[2020-09-30] MEDS: RT-ALBUTEROL INHALER HFA (VENTOLIN HFA) 18 GM IH SCH ×6 (02:14→22:31)
[2020-09-30 06:07] LABS: BASOPHILS % (AUTO) 0 % (0-10); EOSINOPHILS % (AUTO) 0 % (0-10); HEMATOCRIT 46 % (35-52); HEMOGLOBIN 15.2 g/dL (11.5-16.0); LYMPHOCYTES # (AUTO) 0.2 10^3/uL (1.0-4.0); LYMPHOCYTES % (AUTO) 2 % (12-44); MEAN CORPUSCULAR HEMOGLOBIN 33 pg (25-34); MEAN CORPUSCULAR HGB CONC 33 g/dL (32-36); MEAN CORPUSCULAR VOLUME 99 fL (80-99); MEAN PLATELET VOLUME 11.1 fL (9.0-12.2); MONOCYTES # (AUTO) 0.7 10^3/uL (0.0-1.0); MONOCYTES % (AUTO) 7 % (0-12); NEUTROPHILS # (AUTO) 8.6 10^3/uL (1.8-7.8); NEUTROPHILS % (AUTO) 90 % (42-75); PLATELET COUNT 223 10^3/uL (130-400); WHITE BLOOD COUNT 9.6 10^3/uL (4.3-11.0)
[2020-09-30 06:25] LABS: POTASSIUM 4.9 MMOL/L (3.6-5.0)
[2020-09-30 06:26] LABS: CALCIUM 8.5 MG/DL (8.5-10.1)
[2020-09-30 06:30] LABS: CREATININE SERUM 0.93 MG/DL (0.60-1.30)
[2020-09-30] MEDS: methylPREDNISolone 40 MG/ML (Solu-MEDROL) VIAL IV SCH ×2 (06:42→17:25)
[2020-09-30] MEDS: LEVOTHYROXINE 100 MCG (LEVOTHROID) TAB PO SCH (06:42)
[2020-09-30] MEDS: FUROSEMIDE 40 MG (LASIX) TAB PO SCH ×2 (06:42→17:25)
[2020-09-30] MEDS: PANTOPRAZOLE 40 MG (PROTONIX) TAB PO SCH (06:42)
[2020-09-30] MEDS: APIXABAN 5 MG (ELIQUIS) TABLET PO SCH ×2 (08:55→20:36)
[2020-09-30] MEDS: SILDENAFIL 20 MG (REVATIO) TAB NON-FORMULARY PO SCH ×3 (08:55→20:36)
[2020-09-30] MEDS: risperiDONE 1 MG (RisperDAL) TAB PO SCH ×2 (08:55→20:35)
[2020-09-30] MEDS: DIGOXIN 0.125 MG (LANOXIN) TAB PO SCH (08:55)
[2020-09-30] MEDS: AMOXICILLIN 500 MG (POLYMOX) CAP PO SCH ×3 (08:55→20:35)
--- NOTE | 2020-09-30 10:08 | Cardiology Progress Note ---
Subjective Date Seen by Provider: Sep 30, 2020 Time Seen by Provider: 10:07 Subjective/Events-last exam Patient is laying down in bed, feeling better, requiring slightly less oxygen. Heart rate is better Review of Systems General: No Chills, No Night Sweats; Fatigue, Malaise; No Appetite, No Other HEENT: No Head Aches, No Visual Changes, No Eye Pain, No Ear Pain, No Dysphasia, No Sinus Congestion, No Post Nasal Drip, No Sore Throat, No Other Pulmonary: Dyspnea; No Cough, No Pleuritic Chest Pain, No Other Cardiovascular: No: Chest Pain, Palpitations, Orthopnea, Paroxysmal Noc. Dyspnea, Edema, Lt Headedness, Other Objective-Cardiology Exam Last Set of Vital Signs Vital Signs 09/30/20 09/30/20 07:58 08:00 Temp 36.4 Pulse 112 Resp 24 B/P (MAP) 138/83 (101) Pulse Ox 91 O2 Delivery Vapotherm O2 Flow Rate 15.00 FiO2 50 Capillary Refill : Less Than 3 Seconds I&O Intake and Output 09/30/20 00:00 Intake Total 1720 ml Output Total 1450 ml Balance 270 ml Intake Oral 1720 ml Output Urine Total 1450 ml # Bowel Movements 1 General: Alert, Oriented X3, Cooperative HEENT: Atraumatic, PERRLA Neck: Supple, No JVD, No Thyromegaly Lungs: Normal Air Movement, Other (bilateral rhonchi, diminished air entry) Heart: Normal S1, Normal S2, No Murmurs, Other (atrial fibrillation with ventricular response) Abdomen: Normal Bowel Sounds, Soft, No Tenderness, No Hepatosplenomegaly, No Masses Extremities: No Clubbing, No Cyanosis, No Edema, Normal Pulses, No Tenderness/Swelling Skin: No Rashes, No Breakdown, No Significant Lesion Neuro: Normal Gait, Normal Speech, Strength at 5/5 X4 Ext, Normal Tone, Sensation Intact Psych/Mental Status: Mental Status NL, Mood NL Results Lab Laboratory Tests 09/30/20 05:31 A/P-Cardiology Admission Diagnosis Shortness of breath AE CHF COPD afib Assessment/Plan Status post acute respiratory failure, improving slowly, managed by primary care team. Chronic persistent atrial fibrillation, still having significant tachycardia due to her hypoxemia. She is tolerating her medications well. Continue on C ardizem, monitor blood pressure closely. On Vapotherm 50 percent, O2 sat 92 percent. Continue to monitor Congestive heart failure, acute on chronic left ventricular diastolic dysfunction and valvular heart disease, last echo was done in August 2020 showing ejection fraction 50-55 percent. Biatrial enlargement and moderate to severe mitral and tricuspid regurgitation, severe pulmonary hypertension with PA pressure 80-85 mmHg, COPD, followed and managed by Dr. Cage, acute exacerbation, her severe pulmonary hypertension is probably due to combination of COPD and mitral regurgitation Severe pulmonary hypertension, dilated heart chambers, moderate to severe mitral regurgitation. Conservative management H/o nonobstructive CAD per cardiac catheterization August 08, 2015 H/o carotid artery stenosis (right carotid stenting done by Dr. James October 2015) H/o iron deficiency anemia secondary to chronic blood loss H/o hypothyroidism LOUISE SPARROW MD Sep 30, 2020 10:08 am
[2020-09-30] MEDS ORDERED: morphine INJ 4 MG/ML 1 ML (VIAL/SYRINGE) IVP PRN (12:15)
--- NOTE | 2020-09-30 12:26 | Progress Note - Hospitalist ---
Subjective HPI/CC On Admission Date Seen by Provider: Sep 30, 2020 Time Seen by Provider: 11:15 CC: SOB HPI: This is 75yoWF known to me from recent hospital stay for CHF and pneumonia with chronic O2 dependency of 5-6 liters at home who presents with exacerbation of CHF. Cardiology has been consulted and Pt required transfer to the ICU after I saw her and consulted Dr. Cage because of worsening SOB and requirements of more oxygen on Vapotherm. Pt otherwise doing well and denies any pain. Subjective/Events-last exam Patient keeps eyes close most of the time No pain reported at bedside and he talks to me an RN outside room and we talk about palliative care Morphine will be given in case progresses quicker than tomorrow when Palliative care can facilitate Review of Systems General: Fatigue, Malaise Pulmonary: Dyspnea Neurological: Confusion Objective Exam Vital Signs Vital Signs Date Time Temp Pulse Resp B/P (MAP) Pulse Ox O2 Delivery O2 Flow Rate FiO2 09/30/20 14:26 93 Vapotherm 15.00 50 09/30/20 12:21 91 09/30/20 11:47 35.6 20 119/56 (77) Capillary Refill : Less Than 3 Seconds General Appearance: No Apparent Distress, WD/WN, Chronically ill, Thin Respiratory: Chest Non Tender, Lungs Clear, Normal Breath Sounds, No Accessory Muscle Use, No Respiratory Distress, Decreased Breath Sounds Cardiovascular: Regular Rate, Rhythm, No Edema, No Gallop, No JVD, No Murmur, Normal Peripheral Pulses Neurologic/Psychiatric: Alert, Depressed Affect, Disoriented Results/Procedures Lab Laboratory Tests 09/30/20 05:31 Patient resulted labs reviewed. Assessment/Plan Assessment and Plan Assess & Plan/Chief Complaint Assessment: AECOPD CHF AF O2 dependency PVD Plan: Transfer to ICU Monitor O2 09/26/20: Delirium management O2 Vapotherm Monitor AF 09/27/20: Monitor O2 AF management per Cardiology Vapotherm 09/28/20: Vapotherm wean PT OT 09/29/20: Back on Vapotherm AF managed by Dr Russell DNR now 09/30/20: Patient declined a bit Morphine and Ativan will be given in case she needs comfort care meds Diagnosis/Problems Diagnosis/Problems (1) Acute exacerbation of CHF (congestive heart failure) Status: Acute (2) Acute on chronic respiratory failure with hypoxia Status: Acute (3) COPD (chronic obstructive pulmonary disease) Status: Acute (4) Hypoxia Status: Acute (5) On continuous oral anticoagulation Status: Acute (6) Chronic atrial fibrillation Status: Acute ANAT REBOLLAR DO Sep 30, 2020 12:26
[2020-09-30] MEDS ORDERED: LORazepam ORAL CONCENTRATE 2 MG/ML 30 ML (ATIVAN) PO PRN (12:30)
[2020-09-30] MEDS: MONTELUKAST 10 MG (SINGULAIR) TAB PO SCH (20:35)
[2020-10-01] MEDS: RT-ALBUTEROL INHALER HFA (VENTOLIN HFA) 18 GM IH SCH ×6 (02:45→21:59)
[2020-10-01 03:35] VITALS: BP 132/63
[2020-10-01] MEDS: FUROSEMIDE 40 MG (LASIX) TAB PO SCH ×2 (05:00→17:12)
[2020-10-01] MEDS: LEVOTHYROXINE 100 MCG (LEVOTHROID) TAB PO SCH (05:00)
[2020-10-01] MEDS: PANTOPRAZOLE 40 MG (PROTONIX) TAB PO SCH (05:00)
[2020-10-01] MEDS: methylPREDNISolone 40 MG/ML (Solu-MEDROL) VIAL IV SCH ×2 (05:46→17:12)
[2020-10-01 05:59] LABS: BASOPHILS % (AUTO) 0 % (0-10); EOSINOPHILS % (AUTO) 0 % (0-10); HEMATOCRIT 47 % (35-52); HEMOGLOBIN 15.4 g/dL (11.5-16.0); LYMPHOCYTES # (AUTO) 0.2 10^3/uL (1.0-4.0); LYMPHOCYTES % (AUTO) 2 % (12-44); MEAN CORPUSCULAR HEMOGLOBIN 33 pg (25-34); MEAN CORPUSCULAR HGB CONC 33 g/dL (32-36); MEAN CORPUSCULAR VOLUME 99 fL (80-99); MEAN PLATELET VOLUME 10.6 fL (9.0-12.2); MONOCYTES # (AUTO) 0.9 10^3/uL (0.0-1.0); MONOCYTES % (AUTO) 7 % (0-12); NEUTROPHILS # (AUTO) 11.8 10^3/uL (1.8-7.8); NEUTROPHILS % (AUTO) 90 % (42-75); PLATELET COUNT 224 10^3/uL (130-400)
[2020-10-01 06:19] LABS: LYMPHOCYTES % (MANUAL) 1 %; MONOCYTES % (MANUAL) 6 %; NEUTROPHILS % (MANUAL) 93 %
[2020-10-01 06:20] LABS: ACANTHOCYTES SLIGHT
[2020-10-01 06:30] LABS: CHLORIDE 91 MMOL/L (98-107); POTASSIUM 3.5 MMOL/L (3.6-5.0); SODIUM 139 MMOL/L (135-145)
[2020-10-01 06:32] LABS: CALCIUM 8.5 MG/DL (8.5-10.1); GLUCOSE 152 MG/DL (70-105)
[2020-10-01 06:34] LABS: CARBON DIOXIDE 35 MMOL/L (21-32)
[2020-10-01 06:36] LABS: CREATININE SERUM 0.86 MG/DL (0.60-1.30); GFR ESTIMATED > 60
[2020-10-01 06:37] LABS: BUN/CREATININE RATIO 27
--- NOTE | 2020-10-01 06:40 | Pulmonary Progress Note ---
Subjective Time Seen by a Provider: 06:34 Subjective/Events-last exam PT appears to be requiring more oxygen. Sepsis Event Evaluation Height, Weight, BMI Height: 5'6.00" Weight: 144lbs. 1.0oz. 65.454330fb; 20.97 BMI Method:Stated Exam Exam Vital Signs Date Time Temp Pulse Resp B/P (MAP) Pulse Ox O2 Delivery O2 Flow Rate FiO2 10/01/20 03:35 35.8 98 19 132/63 (86) 91 Vapotherm 15.00 50.00 10/01/20 02:46 90 Vapotherm 15.00 50 10/01/20 01:00 81 09/30/20 23:34 36.0 77 16 102/63 (76) 94 Vapotherm 15.00 50.00 09/30/20 22:32 93 Vapotherm 15.00 60 09/30/20 20:00 92 Vapotherm 15.00 60 09/30/20 19:11 36.9 94 20 115/55 (75) 96 Vapotherm 15.00 60.00 09/30/20 19:00 102 09/30/20 18:46 93 Vapotherm 15.00 65 09/30/20 16:00 36.2 89 20 109/55 (73) 91 Vapotherm 15.00 50.00 09/30/20 14:26 93 Vapotherm 15.00 50 09/30/20 12:21 91 09/30/20 11:47 35.6 81 20 119/56 (77) 94 Vapotherm 15.00 50.00 09/30/20 10:14 93 Vapotherm 15.00 50 09/30/20 08:00 91 Vapotherm 15.00 50 09/30/20 07:58 36.4 112 24 138/83 (101) 95 Vapotherm 15.00 50.00 09/30/20 07:16 95 Vapotherm 15.00 60 09/30/20 07:00 96 I & O 10/01/20 07:00 Intake Total 1430 ml Output Total 1225 ml Balance 205 ml Height & Weight Height: 5'6.00" Weight: 144lbs. 1.0oz. 65.807241kn; 20.97 BMI Method:Stated General Appearance: No Apparent Distress, WD/WN, Chronically ill, Thin HEENT: PERRL/EOMI, Normal ENT Inspection, Pharynx Normal, Moist Mucous Membra tori Neck: Full Range of Motion, Normal Inspection, Non Tender Respiratory: Chest Non Tender, Lungs Clear, Normal Breath Sounds, No Accessory Muscle Use, No Respiratory Distress, Decreased Breath Sounds Cardiovascular: Regular Rate, Rhythm, No Edema, No Gallop, No JVD, No Murmur, Normal Peripheral Pulses Capillary Refill: Less Than 3 Seconds Extremity: Normal Capillary Refill, Normal Inspection, Normal Range of Motion, Non Tender, No Calf Tenderness, No Pedal Edema Neurologic/Psychiatric: Alert, Depressed Affect, Disoriented Skin: Normal Color, Warm/Dry Lymphatic: No Adenopathy Results Lab Laboratory Tests 09/30/20 05:31 10/01/20 05:38 Assessment/Plan Assessment/Plan Acute respiratory failure/Hypoxia -continue Vapotherm 50% -Lasix 40mg BID -Repeat CXR, BNP, PCT Pulmonary edema with hypoxia secondary to CHF -Rapid COVID is negative CHFAE LVEF 50-55% dyastolic dysfunction -Continue Lasix -Cardiology is following Metabolic encephalopathy -Risperadol UTI -s/p Amoxil Afib RVR -Cardiology is following -Eliquis Valvular heart disease Pulmonary HTN Probably group 2 and 3 -Lasix -Eliquis Oxygen -Monitor -Ravatio COPDAE -SVNS -Monitor -Solumedrol Hypothyroid -home synthroid Afib -Eliquis Shortness of breath AE CHF COPD afib AMBROSIO KUMAR DO Oct 01, 2020 06:40
--- NOTE | 2020-10-01 07:01 | Diagnostic Imaging Report ---
INDICATION: Dyspnea Portable AP view of the chest is obtained with comparison made to study of 09/27/2020. There is continued cardiomegaly with increased density in the lung bases. There is blunting of the costophrenic sulci, greater on the left. Overall, aeration of lungs has shown slight improvement. IMPRESSION: Mild overall improvement in pulmonary edema and/or pneumonia with mild pleural effusion, greater on the left. Dictated by: Dictated on workstation # [id number]
[2020-10-01 07:06] LABS: PHOSPHORUS 3.8 MG/DL (2.3-4.7)
[2020-10-01 07:08] LABS: MAGNESIUM 2.2 MG/DL (1.6-2.4)
--- NOTE | 2020-10-01 08:24 | Cardiology Progress Note ---
Subjective Date Seen by Provider: Oct 01, 2020 Time Seen by Provider: 08:23 Subjective/Events-last exam C/o dyspnea, denies any chest pain Review of Systems General: No Chills, No Night Sweats; Fatigue; No Malaise, No Appetite, No Other HEENT: No Head Aches, No Visual Changes, No Eye Pain, No Ear Pain, No Dysphasia, No Sinus Congestion, No Post Nasal Drip, No Sore Throat, No Other Pulmonary: Dyspnea; No Cough, No Pleuritic Chest Pain, No Other Cardiovascular: No: Chest Pain, Palpitations, Orthopnea, Paroxysmal Noc. Dysp carol, Edema, Lt Headedness, Other Objective-Cardiology Exam Last Set of Vital Signs Vital Signs 10/01/20 10/01/20 08:00 08:38 Temp 36.1 Pulse 89 Resp 24 B/P (MAP) 130/60 (83) Pulse Ox 90 O2 Delivery Vapotherm O2 Flow Rate 15.00 50.00 FiO2 50 Capillary Refill : Less Than 3 Seconds I&O Intake and Output 10/01/20 00:00 Intake Total 1330 ml Output Total 1375 ml Balance -45 ml Intake Oral 1330 ml Output Urine Total 1375 ml # Bowel Movements 1 General: Alert, Oriented X3, Cooperative HEENT: Atraumatic, PERRLA Neck: Supple, No JVD, No Thyromegaly Lungs: Normal Air Movement, Other (bilateral rhonchi, diminished air entry) Heart: Normal S1, Normal S2, No Murmurs, Other (irregularly irregular) Abdomen: Normal Bowel Sounds, Soft, No Tenderness, No Hepatosplenomegaly, No Masses Extremities: No Clubbing, No Cyanosis, No Edema, Normal Pulses, No Tenderness/Swelling Skin: No Rashes, No Breakdown, No Significant Lesion Neuro: Normal Gait, Normal Speech, Strength at 5/5 X4 Ext, Normal Tone, Sensation Intact Psych/Mental Status: Mental Status NL, Mood NL Results Lab Laboratory Tests 10/01/20 05:38 A/P-Cardiology Admission Diagnosis Shortness of breath AE CHF COPD afib Assessment/Plan Status post acute respiratory failure, improving slowly, managed by primary care team. Chronic persistent atrial fibrillation, still having significant tachycardia due to her hypoxemia. She is tolerating her medications well. Continue on Cardizem, monitor blood pressure closely. On Vapotherm. Continue to monitor Congestive heart failure, acute on chronic left ventricular diastolic dysfunction and valvular heart disease, last echo was done in August 2020 showing ejection fraction 50-55 percent. Biatrial enlargement and moderate to severe mitral and tricuspid regurgitation, severe pulmonary hypertension with PA pressure 80-85 mmHg, COPD, followed and managed by Dr. Cage, acute exacerbation, her severe pulmona ry hypertension is probably due to combination of COPD and mitral regurgitation Severe pulmonary hypertension, dilated heart chambers, moderate to severe mitral regurgitation. Conservative management H/o nonobstructive CAD per cardiac catheterization August 08, 2015 H/o carotid artery stenosis (right carotid stenting done by Dr. James October 2015) H/o iron deficiency anemia secondary to chronic blood loss H/o hypothyroidism Patient was seen and evaluated with [place], examination performed, management plan was discussed, agree with the current scribed note, I made few changes to the note using Italic font Patient was seen at bedside laying down comfortably, still on Vapotherm 50 percent,, oxygen saturation around 90 percent while resting and dropped quickly with minimal exertion Sterile receiving treatment, management per primary care team and Dr. Cage Responding to diuretics. She has underlying severe pulmonary hypertension. ALBERTA PALOMARES Oct 01, 2020 8:24 am LOUISE SPARROW MD Oct 01, 2020 11:56 am
[2020-10-01 08:38] VITALS: BP 130/60
[2020-10-01] MEDS: risperiDONE 1 MG (RisperDAL) TAB PO SCH ×2 (08:54→20:25)
[2020-10-01] MEDS: DIGOXIN 0.125 MG (LANOXIN) TAB PO SCH (08:54)
[2020-10-01] MEDS: APIXABAN 5 MG (ELIQUIS) TABLET PO SCH ×2 (08:54→20:25)
[2020-10-01] MEDS: SILDENAFIL 20 MG (REVATIO) TAB NON-FORMULARY PO SCH ×3 (08:55→20:25)
--- NOTE | 2020-10-01 11:18 | Physical Therapy Daily Note ---
PT Daily Note-Current Subjective Patient reports incontinence of BM requesting cleansing. Mental Status Patient Orientation: Normal For Age Attachments: Oxygen (vapotherm), Gentile Catheter Transfers SCALE: Activities may be completed with or without assistive devices. 1-Efkmhfdnzv-nffdyqg completes the activity by him/herself with no assistance from a helper. 5-Set-up or Clean-up Assistance-helper sets up or cleans up; patient completes activity. [place] assists only prior to or following the activity. 4-Supervision or Touching Assistance-helper provides verbal cues and/or touching/steadying and/or contact guard assistance as patient completes activity. Assistance may be provided throughout the activity or intermittently. 3-Partial/Moderate Assistance-helper does LESS THAN HALF the effort. [place] lifts, holds or supports trunk or limbs, but provides less than half the effort. 2-Substantial/Maximal Assistance-helper does MORE THAN HALF the effort. [place] lifts or holds trunk or limbs and provides more than half the effort. 0-Bkhytftww-zscctr does ALL the effort. Patient does none of the effort to complete the activity. Or, the assistance of 2 or more helpers is required for the patient to complete the activity. If activity was not attempted, code reason: 7-Patient Refused. 9-Not Applicable-not attempted and the patient did not perform the activity before the current illness, exacerbation or injury. 10-Not Attempted due to Environmental Limitations-(lack of equipment, weather restraints, etc.). 88-Not Attempted due to Medical Conditions or Safety Concerns. Roll Left & Right (QC): 1 (dependent assit with rolling to cleanse and change) Assessment Due to increase O2 demand and decreased SAO2, patient is not safe for OOB activity. RN agrees. PT Shelter Goals Rental Agent Goals PT Shelter Goals Time Frame: Oct 13, 2020 Roll Left & Right (QC): 5 Sit to Lying (QC): 5 Lying-Sitting on Side/Bed(QC): 5 Sit to Stand (QC): 5 Chair/Jbr-hd-Vffse Xfer(QC): 5 Toilet Transfer (QC): 5 Car Transfer (QC): 5 Does the Patient Walk: Yes Walk 10 feet (QC): 5 Walk 50ft with 2 Turns (QC): 5 Walk 150 ft (QC): 5 Walking 10ft on Uneven Surface: 5 1 Step (curb) (QC): 5 4 Steps (QC): 5 12 Steps (QC): 9 PT Plan Treatment/Plan Treatment Plan: Continue Plan of Care Treatment Plan: Bed Mobility, Education, Functional Activity Adonay, Functional Strength, Gait, Safety, Therapeutic Exercise, Transfers Treatment Duration: Oct 13, 2020 Frequency: 6 times per week Estimated Hrs Per Day: .25 hour per day Patient and/or Family Agrees t: Yes Time/GCodes Time In: 1020 Time Out: 1030 Total Billed Treatment Time: 10 Total Billed Treatment 1 visit FA 10 min JILLIAN QUACH PT Oct 01, 2020 11:18
--- NOTE | 2020-10-01 11:30 | Progress Note - Hospitalist ---
[facility] 10/01/20 1130: Subjective HPI/CC On Admission Date Seen by Provider: Oct 01, 2020 Time Seen by Provider: 08:55 CC: SOB HPI: This is [id number] known to me from recent hospital stay for CHF and pneumonia with chronic O2 dependency of 5-6 liters at home who presents with exacerbation of CHF. Cardiology has been consulted and Pt required transfer to the ICU after I saw her and consulted Dr. Cage because of worsening SOB and requirements of more oxygen on Vapotherm. Pt otherwise doing well and denies any pain. Subjective/Events-last exam Patient is alert and in a pleasant mood. No acute events overnight. Currently on Vapotherm. Denies pain. Catheter in place draining clear yellow urine. She had a bowel movement yesterday. She has done minimal PT. Required more oxygen per Dr. Cage. Baseline is NC of 5-6L at home. CXR showed minimal overall improvement. She feels like she is improving and even asked about going home. Eating and drinking without issue. Denies F/C, N/V, Chest pain, increased SOB, abdominal pain, dizziness or changes in vision at this time. Review of Systems General: No Chills HEENT: No Visual Changes Pulmonary: No Dyspnea, No Cough Cardiovascular: No: Chest Pain Gastrointestinal: No: Nausea, Vomiting, Abdominal Pain Musculoskeletal: No: leg pain Objective Exam Vital Signs Vital Signs Date Time Temp Pulse Resp B/P (MAP) Pulse Ox O2 Delivery O2 Flow Rate FiO2 10/01/20 08:38 36.1 89 24 130/60 (83) 90 Vapotherm 15.00 50.00 10/01/20 08:00 50 Capillary Refill : Less Than 3 Seconds General Appearance: No Apparent Distress, Chronically ill, Thin HEENT: PERRL/EOMI Neck: Normal Inspection, Non Tender Respiratory: No Accessory Muscle Use, No Respiratory Distress, Wheezing (BL) Cardiovascular: No Edema, Normal Peripheral Pulses Gastrointestinal: No Organomegaly, Non Tender, Soft Extremity: Non Tender, No Calf Tenderness Neurologic/Psychiatric: Alert, Normal Mood/Affect Skin: Normal Color, Warm/Dry Lymphatic: No Adenopathy Results/Procedures Lab Laboratory Tests 10/01/20 05:38 Patient resulted labs reviewed. Assessment/Plan Assessment and Plan Assess & Plan/Chief Complaint Assessment: AECOPD CHF AF O2 dependency PVD Plan: Transfer to ICU Monitor O2 09/26/20: Delirium management O2 Vapotherm Monitor AF 09/27/20: Monitor O2 AF management per Cardiology Vapotherm 09/28/20: Vapotherm wean PT OT 09/29/20: Back on Vapotherm AF managed by Dr Russell DNR now 09/30/20: Patient declined a bit Morphine and Ativan will be given in case she needs comfort care meds 10/01/20: Patient still receiving Vapotherm. Spoke to Dr. Cage he ended up ordering a BNP (168), Mag (3.8) and Pro-calcitonin (resulting), in addition to CXR. Believes the patient is requiring more oxygen. Continue PT Will discuss palliative care and anticipated d/c course DAYANA REBOLLAR DO 10/02/20 0547: Subjective Subjective/Events-last exam Pt remains on Vapotherm Confusion still persists Procalcitonin is pending, but Dr. Cage did a work up and I updated him that we are contemplating hospice at discharge Gentile catheter is in place Eating and drinking the bare minimum I did confer with palliative care nurse Review of Systems Pulmonary: Dyspnea Objective Exam General Appearance: No Apparent Distress, WD/WN, Chronically ill Respiratory: Chest Non Tender, Lungs Clear, Normal Breath Sounds, No Accessory Muscle Use, No Respiratory Distress Cardiovascular: Regular Rate, Rhythm, No Edema, No Gallop, No JVD, No Murmur, Normal Peripheral Pulses Neurologic/Psychiatric: Alert, Oriented x3, No Motor/Sensory Deficits, Normal Mood/Affect Assessment/Plan Assessment and Plan Assess & Plan/Chief Complaint Hospice consult Supervisory-Addendum Brief Verification & Attestation Participated in pt care: history, MDM, physical Personally performed: exam, history, MDM, supervision of care Care discussed with: Medical Student Procedures: n/a Results interpretation: Verified all documentation Verification and Attestation of Medical Student E/M Service A medical student performed and documented this service in my presence. I reviewed and verified all information documented by the medical student and made modifications to such information, when appropriate. I personally performed the physical exam and medical decision making. Dayana Rebollar, Oct 02, 2020,05:45 [facility] Oct 01, 2020 11:30 DAYANA REBOLLAR DO Oct 02, 2020 05:47
[2020-10-01 12:16] VITALS: BP 109/55
--- NOTE | 2020-10-01 14:18 | Occ Therapy Progress Note ---
Therapy Progress Note Per nrsg, pt on hold. Will attempt to see tomorrow. ARA JIMENEZ Oct 01, 2020 14:18
[2020-10-01] MEDS: MONTELUKAST 10 MG (SINGULAIR) TAB PO SCH (20:25)
[2020-10-01 23:46] VITALS: BP 127/61
[2020-10-02] MEDS: RT-ALBUTEROL INHALER HFA (VENTOLIN HFA) 18 GM IH SCH ×6 (02:16→22:08)
[2020-10-02] MEDS: PANTOPRAZOLE 40 MG (PROTONIX) TAB PO SCH (05:17)
[2020-10-02] MEDS: FUROSEMIDE 40 MG (LASIX) TAB PO SCH ×2 (05:17→18:00)
[2020-10-02] MEDS: LEVOTHYROXINE 100 MCG (LEVOTHROID) TAB PO SCH (05:17)
[2020-10-02] MEDS: methylPREDNISolone 40 MG/ML (Solu-MEDROL) VIAL IV SCH ×2 (05:17→18:02)
[2020-10-02 05:42] LABS: BASOPHILS % (AUTO) 0 % (0-10); EOSINOPHILS % (AUTO) 0 % (0-10); HEMATOCRIT 45 % (35-52); HEMOGLOBIN 15.1 g/dL (11.5-16.0); LYMPHOCYTES # (AUTO) 0.2 10^3/uL (1.0-4.0); LYMPHOCYTES % (AUTO) 1 % (12-44); MEAN CORPUSCULAR HEMOGLOBIN 34 pg (25-34); MEAN CORPUSCULAR HGB CONC 34 g/dL (32-36); MEAN CORPUSCULAR VOLUME 99 fL (80-99); MEAN PLATELET VOLUME 10.7 fL (9.0-12.2); MONOCYTES % (AUTO) 6 % (0-12); NEUTROPHILS # (AUTO) 15.6 10^3/uL (1.8-7.8); NEUTROPHILS % (AUTO) 92 % (42-75); PLATELET COUNT 219 10^3/uL (130-400)
[2020-10-02 05:53] LABS: POTASSIUM 3.5 MMOL/L (3.6-5.0)
[2020-10-02 05:54] LABS: CALCIUM 8.2 MG/DL (8.5-10.1)
[2020-10-02 05:58] LABS: PHOSPHORUS 4.4 MG/DL (2.3-4.7)
[2020-10-02 05:59] LABS: CREATININE SERUM 0.98 MG/DL (0.60-1.30)
[2020-10-02 06:01] LABS: MAGNESIUM 2.3 MG/DL (1.6-2.4)
--- NOTE | 2020-10-02 07:09 | Pulmonary Progress Note ---
Subjective Time Seen by a Provider: 07:05 Subjective/Events-last exam PT is requiring less oxygen. Sepsis Event Evaluation Height, Weight, BMI Height: 5'6.00" Weight: 144lbs. 1.0oz. 65.205103ab; 20.97 BMI Method:Stated Exam Exam Vital Signs Date Time Temp Pulse Resp B/P (MAP) Pulse Ox O2 Delivery O2 Flow Rate FiO2 10/02/20 06:45 93 High Flow N/C 5.00 10/02/20 02:16 93 High Flow N/C 8.00 10/02/20 01:00 94 10/01/20 23:46 37.1 91 24 127/61 (83) 94 High Flow N/C 7.00 10/01/20 21:59 98 High Flow N/C 12.00 10/01/20 20:00 91 High Flow N/C 12.00 60 10/01/20 19:01 81 10/01/20 18:38 92 High Flow N/C 6.00 10/01/20 14:12 94 High Flow N/C 6.00 10/01/20 12:32 80 10/01/20 12:16 35.8 113 24 109/55 (73) 92 High Flow N/C 7.00 10/01/20 10:43 91 Vapotherm 15.00 60 10/01/20 08:38 36.1 89 24 130/60 (83) 90 Vapotherm 15.00 50.00 10/01/20 08:00 91 Vapotherm 15.00 50 I & O 10/02/20 07:00 Intake Total 1977 ml Output Total 975 ml Balance 1002 ml Height & Weight Height: 5'6.00" Weight: 144lbs. 1.0oz. 65.733437pk; 20.97 BMI Method:Stated General Appearance: No Apparent Distress, WD/WN, Chronically ill, Thin HEENT: PERRL/EOMI, Normal ENT Inspection, Pharynx Normal, Moist Mucous Membranes Neck: Full Range of Motion, Normal Inspection, Non Tender Respiratory: Chest Non Tender, Lungs Clear, Normal Breath Sounds, No Accessory Muscle Use, No Respiratory Distress, Decreased Breath Sounds Cardiovascular: Regular Rate, Rhythm, No Edema, No Gallop, No JVD, No Murmur, Normal Peripheral Pulses Capillary Refill: Less Than 3 Seconds Extremity: Normal Capillary Refill, Normal Inspection, Normal Range of Motion, Non Tender, No Calf Tenderness, No Pedal Edema Neurologic/Psychiatric: Alert, Depressed Affect, Disoriented Skin: Normal Color, Warm/Dry Lymphatic: No Adenopathy Results Lab Laboratory Tests 10/01/20 05:38 10/02/20 05:19 Assessment/Plan Assessment/Plan Acute respiratory failure/Hypoxia -PT is now on 5 liter NC -Lasix 40mg BID -CXR shows improvement. Pulmonary edema with hypoxia secondary to CHF -Rapid COVID is negative CHFAE LVEF 50-55% dyastolic dysfunction -Continue Lasix -Cardiology is following Metabolic encephalopathy -Risperadol UTI -s/p Amoxil Afib RVR -Cardiology is following -Eliquis Valvular heart disease Pulmonary HTN Probably group 2 and 3 -Lasix -Eliquis Oxygen -Monitor -Ravatio COPDAE -SVNS -Monitor -Solumedrol Hypothyroid -home synthroid Afib -Eliquis Shortness of breath AE CHF COPD afib PT and are considering hospice care. AMBROSIO KUMAR DO Oct 02, 2020 07:09
[2020-10-02 08:06] VITALS: BP 114/57
[2020-10-02] MEDS: APIXABAN 5 MG (ELIQUIS) TABLET PO SCH ×2 (08:20→21:36)
[2020-10-02] MEDS: risperiDONE 1 MG (RisperDAL) TAB PO SCH ×2 (08:20→21:36)
[2020-10-02] MEDS: DIGOXIN 0.125 MG (LANOXIN) TAB PO SCH (08:20)
[2020-10-02] MEDS: SILDENAFIL 20 MG (REVATIO) TAB NON-FORMULARY PO SCH ×3 (08:20→21:36)
--- NOTE | 2020-10-02 08:57 | Cardiology Progress Note ---
Subjective Date Seen by Provider: Oct 02, 2020 Time Seen by Provider: 08:56 Subjective/Events-last exam Patient in bed, continues to complain of fatigue and dyspnea. Review of Systems General: No Chills, No Night Sweats; Fatigue; No Malaise, No Appetite, No Other HEENT: No Head Aches, No Visual Changes, No Eye Pain, No Ear Pain, No Dysphasia, No Sinus Congestion, No Post Nasal Drip, No Sore Throat, No Other Pulmonary: Dyspnea; No Cough, No Pleuritic Chest Pain, No Other Cardiovascular: No: Chest Pain, Palpitations, Orthopnea, Paroxysmal Noc. Dyspnea, Edema, Lt Headedness, Other Objective-Cardiology Exam Last Set of Vital Signs Vital Signs 10/01/20 10/02/20 10/02/20 10/02/20 20:00 08:06 09:36 10:15 Temp 35.5 Pulse 83 Resp 24 B/P (MAP) 114/57 (76) Pulse Ox 96 O2 Delivery High Flow N/C O2 Flow Rate 5.00 FiO2 60 Capillary Refill : Less Than 3 Seconds I&O Intake and Output 10/02/20 00:00 Intake Total 2177 ml Output Total 1225 ml Balance 952 ml Intake Oral 2177 ml Output Urine Total 1225 ml General: Alert, Oriented X3, Cooperative HEENT: Atraumatic, PERRLA Neck: Supple, No JVD, No Thyromegaly Lungs: Normal Air Movement, Other (bilateral rhonchi, diminished air entry) Heart: Normal S1, Normal S2, Other (irregularly irregular) Abdomen: Normal Bowel Sounds, Soft, No Tenderness, No Hepatosplenomegaly, No Masses Extremities: No Clubbing, No Cyanosis, No Edema, Normal Pulses, No Tenderness/Swelling Skin: No Rashes, No Breakdown, No Significant Lesion Neuro: Normal Gait, Normal Speech, Strength at 5/5 X4 Ext, Normal Tone, Sensat ion Intact Psych/Mental Status: Mental Status NL, Mood NL Results Lab Laboratory Tests 10/02/20 05:19 A/P-Cardiology Admission Diagnosis Shortness of breath AE CHF COPD afib Assessment/Plan Status post acute respiratory failure, improving slowly, managed by primary care team. Chronic persistent atrial fibrillation, still having significant tachycardia due to her hypoxemia. She is tolerating her medications well. Continue on Cardizem, monitor blood pressure closely. Continue to monitor Congestive heart failure, acute on chronic left ventricular diastolic dysfunction and valvular heart disease, last echo was done in August 2020 showing ejection fraction 50-55 percent. Biatrial enlargement and moderate to severe mitral and tricuspid regurgitation, severe pulmonary hypertension with PA pressure 80-85 mmHg, COPD, followed and managed by Dr. Cage, acute exacerbation, her severe pulmonary hypertension is probably due to combination of COPD and mitral regurgitation Severe pulmonary hypertension, dilated heart chambers, moderate to severe mitral regurgitation. Conservative management H/o nonobstructive CAD per cardiac catheterization August 08, 2015 H/o carotid artery stenosis (right carotid stenting done by Dr. James October 2015) H/o iron deficiency anemia secondary to chronic blood loss H/o hypothyroidism Patient and are considering hospice care. Patient was seen and evaluated with [place], examination performed, management plan was discussed, agree with the current scribed note, I made few changes to the note using Italic font Patient was seen at bedside laying down comfortably, still having dyspnea No chest pain or palpitation Borderline tachycardic Management as described above, no changes are recommended from cardiology standpoint ALBERTA PALOMARES Oct 02, 2020 08:57 LOUISE SPARROW MD Oct 02, 2020 12:47
[2020-10-02 09:36] VITALS: BP 114/57
--- NOTE | 2020-10-02 11:25 | Physical Therapy Daily Note ---
PT Daily Note-Current Subjective Patient agrees to PT. Currently on 5L O2 HF NC. Spouse present Mental Status Patient Orientation: Confused Attachments: Oxygen (5L HF), Gentile Catheter Transfers SCALE: Activities may be completed with or without assistive devices. 8-Onarlodqps-eimkcxy completes the activity by him/herself with no assistance from a helper. 5-Set-up or Clean-up Assistance-helper sets up or cleans up; patient completes activity. [place] assists only prior to or following the activity. 4-Supervision or Touching Assistance-helper provides verbal cues and/or touching/steadying and/or contact guard assistance as patient completes activity. Assistance may be provided throughout the activity or intermittently. 3-Partial/Moderate Assistance-helper does LESS THAN HALF the effort. [place] lifts, holds or supports trunk or limbs, but provides less than half the effort. 2-Substantial/Maximal Assistance-helper does MORE THAN HALF the effort. [place] lifts or holds trunk or limbs and provides more than half the effort. 3-Ncsofeqra-tisych does ALL the effort. Patient does none of the effort to complete the activity. Or, the assistance of 2 or more helpers is required for the patient to complete the activity. If activity was not attempted, code reason: 7-Patient Refused. 9-Not Applicable-not attempted and the patient did not perform the activity before the current illness, exacerbation or injury. 10-Not Attempted due to Environmental Limitations-(lack of equipment, weather restraints, etc.). 88-Not Attempted due to Medical Conditions or Safety Concerns. Sit to Stand (QC): 2 (x 3 sets to FWW) Patient able to take 3 steps forward and backward Assessment SAO2 decreases to 73% on 5L HF NC with long recovery period. Noted, patient's lips were cyanotic. RN notified. Patient remains up in recliner with recovery SAO2 90%. PT Banquet Houseperson Goals Banquet Houseperson Goals PT Senior Care Goals Time Frame: Oct 13, 2020 Roll Left & Right (QC): 5 Sit to Lying (QC): 5 Lying-Sitting on Side/Bed(QC): 5 Sit to Stand (QC): 5 Chair/Ion-lr-Skeeu Xfer(QC): 5 Toilet Transfer (QC): 5 Car Transfer (QC): 5 Does the Patient Walk: Yes Walk 10 feet (QC): 5 Walk 50ft with 2 Turns (QC): 5 Walk 150 ft (QC): 5 Walking 10ft on Uneven Surface: 5 1 Step (curb) (QC): 5 4 Steps (QC): 5 12 Steps (QC): 9 PT Plan Treatment/Plan Treatment Plan: Continue Plan of Care Treatment Plan: Bed Mobility, Education, Functional Activity Adonay, Functional Strength, Gait, Safety, Therapeutic Exercise, Transfers Treatment Duration: Oct 13, 2020 Frequency: 6 times per week Estimated Hrs Per Day: .25 hour per day Patient and/or Family Agrees t: Yes Time/GCodes Time In: 1055 Time Out: 1112 Total Billed Treatment Time: 17 Total Billed Treatment 1 visit FA 17 min JILLIAN QUACH PT Oct 02, 2020 11:25
--- NOTE | 2020-10-02 11:30 | Progress Note - Hospitalist ---
AMBROCIO MATTHEWS [facility] 10/02/20 1130: Subjective HPI/CC On Admission Date Seen by Provider: Oct 02, 2020 Time Seen by Provider: 09:50 CC: SOB HPI: This is 75yoWF known to me from recent hospital stay for CHF and pneumonia with chronic O2 dependency of 5-6 liters at home who presents with exacerbation of CHF. Cardiology has been consulted and Pt required transfer to the ICU after I saw her and consulted Dr. Cage because of worsening SOB and requirements of more oxygen on Vapotherm. Pt otherwise doing well and denies any pain. Subjective/Events-last exam Pt is alert and oriented. No acute events overnight. She denies pain. Still fatigued but she feels she is improving. Appetite is increased. She has not working with PT/OT. Bowel movements per RN were bloody. Catheter in place draining clear yellow urine, discussed discontinuing this today. Currently receiving 5L HF stating at 93%, which is her home level of 5-6L. Denies N/V, F/C, Chest pain and abdominal pain at this time. Review of Systems General: No Chills Pulmonary: No Pleuritic Chest Pain Cardiovascular: No: Chest Pain, Edema Gastrointestinal: No: Nausea, Vomiting, Abdominal Pain Objective Exam Vital Signs Vital Signs Date Time Temp Pulse Resp B/P (MAP) Pulse Ox O2 Delivery O2 Flow Rate FiO2 10/02/20 10:15 96 High Flow N/C 5.00 10/02/20 09:36 35.5 83 10/02/20 08:06 24 114/57 (76) 10/01/20 20:00 60 Capillary Refill : Less Than 3 Seconds General Appearance: No Apparent Distress, Chronically ill Neck: Non Tender Respiratory: Chest Non Tender, No Accessory Muscle Use, No Respiratory Distress, Wheezing (BL) Cardiovascular: No Edema, Normal Peripheral Pulses Gastrointestinal: Non Tender, Soft Back: No CVA Tenderness, No Vertebral Tenderness Extremity: No Pedal Edema, Other (minimal right side calf tenderness that she states has been there for awhile. ) Neurologic/Psychiatric: Alert, Oriented x3 Skin: Normal Color Lymphatic: No Adenopathy Results/Procedures Lab Laboratory Tests 10/02/20 05:19 Patient resulted labs reviewed. Assessment/Plan Assessment and Plan Assess & Plan/Chief Complaint Assessment: AECOPD CHF AF O2 dependency PVD Plan: Transfer to ICU Monitor O2 09/26/20: Delirium management O2 Vapotherm Monitor AF 09/27/20: Monitor O2 AF management per Cardiology Vapotherm 09/28/20: Vapotherm wean PT OT 09/29/20: Back on Vapotherm AF managed by Dr Russell DNR now 09/30/20: Patient declined a bit Morphine and Ativan will be given in case she needs comfort care meds 10/01/20: Patient still receiving Vapotherm. Spoke to Dr. Cage he ended up ordering a BNP (168), Mag (3.8) and Pro-calcitonin (resulting), in addition to CXR. Believes the patient is requiring more oxygen. Continue PT Will discuss palliative care and anticipated d/c course 10/02/20: Improved breathing. No longer on vapotherm. Receiving 5L HF. Order PT/OT D/C catheter Heme Occult ordered for blood in stool. Anticipated d/c to [facility] when appropriate. Monitor leukocytosis, likely 2/2 steroid use DAYNAA REBOLLAR DO 10/03/20 0537: Subjective Subjective/Events-last exam Pt now on 5 liters of O2 DC the catheter WC now 17,000 from steroids Potassium 3.5 Looking at terminal operations supervisor care insurance and likely DC to skilled then transfer to hospice I did update PCP Dr. Thomas Review of Systems Pulmonary: Dyspnea Neurological: Confusion Objective Exam General Appearance: No Apparent Distress, WD/WN Respiratory: Chest Non Tender, Lungs Clear, Normal Breath Sounds, No Accessory Muscle Use, No Respiratory Distress Cardiovascular: Regular Rate, Rhythm, No Edema, No Gallop, No JVD, No Murmur, Normal Peripheral Pulses Assessment/Plan Assessment and Plan Assess & Plan/Chief Complaint Skilled care at DC Needs Hospice transition Supervisory-Addendum Brief Verification & Attestation Participated in pt care: history, MDM, physical Personally performed: exam, history, MDM, supervision of care Care discussed with: Medical Student Procedures: n/a Results interpretation: Verified all documentation Verification and Attestation of Medical Student E/M Service A medical student performed and documented this service in my presence. I reviewed and verified all information documented by the medical student and made modifications to such information, when appropriate. I personally performed the physical exam and medical decision making. Dayana Rebollar, Oct 03, 2020,05:36 AMBROCIO MATTHEWS [facility] Oct 02, 2020 11:30 DAYANA REBOLLAR DO Oct 03, 2020 05:37
--- NOTE | 2020-10-02 13:38 | Occupational Ther Daily Note ---
OT Current Status-Daily Note Subjective Pt alert, sitting in recliner. Hi Flow NC 5L. Pt agrees to therapy. Mental Status/Objective Patient Orientation: Person, Place, Time Attachments: Gentile Catheter, IV, Oxygen ADL-Treatment Therapy Code Descriptions/Definitions Functional [place] Measure: 0=Not Assessed/NA 4=Minimal Assistance 1=Total Assistance 5=Supervision or Setup 2=Maximal Assistance 6=Modified [place] 3=Moderate Assistance 7=Complete IndependenceSCALE: Activities may be completed with or without assistive devices. 2-Plsvoscfal-nvknmea completes the activity by him/herself with no assistance from a helper. 5-Set-up or Clean-up Assistance-helper sets up or cleans up; patient completes activity. [place] assists only prior to or following the activity. 4-Supervision or Touching Assistance-helper provides verbal cues and/or touching/steadying and/or contact guard assistance as patient completes activity. Assistance may be provided throughout the activity or intermittently. 3-Partial/Moderate Assistance-helper does LESS THAN HALF the effort. [place] lifts, holds or supports trunk or limbs, but provides less than half the effort. 2-Substantial/Maximal Assistance-helper does MORE THAN HALF the effort. [place] lifts or holds trunk or limbs and provides more than half the effort. 9-Dwszzveex-nzhzfb does ALL the effort. Patient does none of the effort to complete the activity. Or, the assistance of 2 or more helpers is required for the patient to complete the activity. If activity was not attempted, code reason: 7-Patient Refused. 9-Not Applicable-not attempted and the patient did not perform the activity before the current illness, exacerbation or injury. 10-Not Attempted due to Environmental Limitations-(lack of equipment, weather restraints, etc.). 88-Not Attempted due to Medical Conditions or Safety Concerns. Other Treatment Pt c/o that bottom hurts. MCGHEE encourages pt to stand to relieve pressure on pt's bottom, pt declines to complete stating that she just can't do it. Pt completes 8 lean to each side while sitting to relieve pressure on sacrum, holds each for 10 sec. Pt then completes 3 B UE exercises against gravity to increase strength, 1 set 10 reps each. Pt completes each rep slowly and takes lengthy recovery breaks. Pt states after exercises are finished that she is tired. After therapy, pt sitting in recliner with call light/phone in reach. OT Pipe Stem Repairer Goals Half-Way Goals Time Frame: Oct 12, 2020 Eating (QC): 5 Oral Hygiene (QC): 5 Toileting Hygiene (QC): 3 Shower/Bathe Self (QC): 3 Upper Body Dressing (QC): 3 Lower Body Dressing (QC): 3 On/Off Footwear (QC): 3 Additional Goals: 1-Demonstrate ADL Tasks, 2-Verbalize Understanding, 3- ImproveStrength/[place] 1=Demonstrate adherence to instructed precautions during ADL tasks. 2=Patient will verbalize/demonstrate understanding of assistive d evices/modifications for ADL. 3=Patient will improve strength/tolerance for activity to enable patient to perform ADL's. OT Education/Plan Problem List/Assessment Assessment: Decreased Activ Tolerance, Decreased UE Strength Discharge Recommendations Plan/Recommendations: Continue POC Treatment Plan/Plan of Care Patient would benefit from OT for education, treatment and training to promote independence in ADL's, mobility, safety and/or upper extremity function for ADL's. Plan of Care: ADL Retraining, Functional Mobility, UE Funct Exercise/Act Treatment Duration: Oct 12, 2020 Frequency: 5 times per week Estimated Hrs Per Day: .25 hour per day Rehab Potential: Guarded (O2 demand/decreased SAO2 with minimal activity) Time/GCodes Start Time: 13:15 Stop Time: 13:30 Total Time Billed (hr/min): 15 Billed Treatment Time 1 visit-Ex 1 (15 min) ARA JIMENEZ Oct 02, 2020 13:38
[2020-10-02 16:00] VITALS: BP 101/56
[2020-10-02] MEDS ORDERED: ONDANSETRON 4 MG (ZOFRAN) ORAL DISSOLVE TAB PO PRN (18:45)
[2020-10-02] MEDS: MONTELUKAST 10 MG (SINGULAIR) TAB PO SCH (21:36)
[2020-10-03 00:16] VITALS: BP 121/57
[2020-10-03] MEDS: RT-ALBUTEROL INHALER HFA (VENTOLIN HFA) 18 GM IH SCH ×6 (02:41→21:56)
[2020-10-03 05:41] LABS: BASOPHILS % (AUTO) 0 % (0-10); EOSINOPHILS % (AUTO) 0 % (0-10); HEMATOCRIT 44 % (35-52); HEMOGLOBIN 14.9 g/dL (11.5-16.0); LYMPHOCYTES # (AUTO) 0.2 10^3/uL (1.0-4.0); LYMPHOCYTES % (AUTO) 1 % (12-44); MEAN CORPUSCULAR HEMOGLOBIN 34 pg (25-34); MEAN CORPUSCULAR HGB CONC 34 g/dL (32-36); MEAN CORPUSCULAR VOLUME 98 fL (80-99); MEAN PLATELET VOLUME 11.2 fL (9.0-12.2); MONOCYTES # (AUTO) 1.7 10^3/uL (0.0-1.0); MONOCYTES % (AUTO) 9 % (0-12); NEUTROPHILS % (AUTO) 89 % (42-75); PLATELET COUNT 252 10^3/uL (130-400); WHITE BLOOD COUNT 19.2 10^3/uL (4.3-11.0)
[2020-10-03 05:59] LABS: POTASSIUM 3.4 MMOL/L (3.6-5.0)
[2020-10-03 06:00] LABS: CALCIUM 8.3 MG/DL (8.5-10.1)
[2020-10-03 06:05] LABS: CREATININE SERUM 1.08 MG/DL (0.60-1.30); PHOSPHORUS 3.9 MG/DL (2.3-4.7)
[2020-10-03 06:07] LABS: MAGNESIUM 2.3 MG/DL (1.6-2.4)
[2020-10-03] MEDS: FUROSEMIDE 40 MG (LASIX) TAB PO SCH ×2 (06:27→17:32)
[2020-10-03] MEDS: LEVOTHYROXINE 100 MCG (LEVOTHROID) TAB PO SCH (06:27)
[2020-10-03] MEDS: PANTOPRAZOLE 40 MG (PROTONIX) TAB PO SCH (06:27)
[2020-10-03 08:00] VITALS: BP 117/58
--- NOTE | 2020-10-03 08:15 | Pulmonary Progress Note ---
Subjective Time Seen by a Provider: 08:14 Subjective/Events-last exam No complications noted. Sepsis Event Evaluation Height, Weight, BMI Height: 5'6.00" Weight: 144lbs. 1.0oz. 65.684555ca; 20.97 BMI Method:Stated Exam Exam Vital Signs Date Time Temp Pulse Resp B/P (MAP) Pulse Ox O2 Delivery O2 Flow Rate FiO2 10/03/20 07:20 94 High Flow N/C 5.00 10/03/20 02:43 95 High Flow N/C 5.00 10/03/20 00:16 36.0 85 16 121/57 (78) 95 Nasal Cannula 4.00 10/02/20 22:10 98 High Flow N/C 5.00 10/02/20 20:00 92 High Flow N/C 6.00 10/02/20 16:00 37.0 91 18 101/56 (71) 93 High Flow N/C 5.00 10/02/20 14:48 96 High Flow N/C 5.00 10/02/20 10:15 96 High Flow N/C 5.00 10/02/20 09:36 35.5 83 95 I & O 10/03/20 07:00 Intake Total 1147 ml Output Total 550 ml Balance 597 ml Height & Weight Height: 5'6.00" Weight: 144lbs. 1.0oz. 65.240571re; 20.97 BMI Method:Stated General Appearance: No Apparent Distress, WD/WN HEENT: PERRL/EOMI, Normal ENT Inspection, Pharynx Normal, Moist Mucous Membranes Neck: Non Tender Respiratory: Chest Non Tender, Lungs Clear, Normal Breath Sounds, No Accessory Muscle Use, No Respiratory Distress Cardiovascular: Regular Rate, Rhythm, No Edema, No Gallop, No JVD, No Murmur, Normal Peripheral Pulses Capillary Refill: Less Than 3 Seconds Extremity: No Pedal Edema, Other (minimal right side calf tenderness that she states has been there for awhile. ) Neurologic/Psychiatric: Alert, Oriented x3 Skin: Normal Color Lymphatic: No Adenopathy Results Lab Laboratory Tests 10/02/20 05:19 10/03/20 05:20 Assessment/Plan Assessment/Plan Acute respiratory failure/Hypoxia -PT is now on 5 liter NC -Lasix 40mg BID Pulmonary edema with hypoxia secondary to CHF -Rapid COVID is negative CHFAE LVEF 50-55% dyastolic dysfunction -Continue Lasix -Cardiology is following Metabolic encephalopathy -Risperadol UTI -s/p Amoxil Afib RVR -Cardiology is following -Eliquis Valvular heart disease Pulmonary HTN Probably group 2 and 3 -Lasix -Eliquis Oxygen -Monitor -Ravatio COPDAE -SVNS -Monitor -Solumedrol Hypothyroid -home synthroid Afib -Eliquis Shortness of breath AE CHF COPD afib AMBROSIO KUMAR DO Oct 03, 2020 08:15
[2020-10-03] MEDS: DIGOXIN 0.125 MG (LANOXIN) TAB PO SCH (08:45)
[2020-10-03] MEDS: SILDENAFIL 20 MG (REVATIO) TAB NON-FORMULARY PO SCH ×3 (08:45→20:18)
[2020-10-03] MEDS: APIXABAN 5 MG (ELIQUIS) TABLET PO SCH ×2 (08:45→20:18)
[2020-10-03] MEDS: risperiDONE 1 MG (RisperDAL) TAB PO SCH ×2 (08:45→20:18)
--- NOTE | 2020-10-03 09:51 | Cardiology Progress Note ---
Subjective Date Seen by Provider: Oct 03, 2020 Time Seen by Provider: 08:20 Subjective/Events-last exam Patient is sitting up in bed, no new complaints. Currently off Vapotherm, on 5L HF NC Review of Systems General: No Chills, No Night Sweats; Fatigue, Malaise; No Appetite, No Other HEENT: No Head Aches, No Visual Changes, No Eye Pain, No Ear Pain, No Dysphasia, No Sinus Congestion, No Post Nasal Drip, No Sore Throat, No Other Pulmonary: Dyspnea; No Cough, No Pleuritic Chest Pain, No Other Cardiovascular: No: Chest Pain, Palpitations, Orthopnea, Paroxysmal Noc. Dyspnea, Edema, Lt Headedness, Other Objective-Cardiology Exam Last Set of Vital Signs Vital Signs 10/01/20 10/03/20 20:00 10:17 Pulse Ox 93 O2 Delivery High Flow N/C O2 Flow Rate 5.00 FiO2 60 Capillary Refill : Less Than 3 Seconds I&O Intake and Output 10/03/20 00:00 Intake Total 1147 ml Output Total 700 ml Balance 447 ml Intake Oral 1147 ml Output Urine Total 700 ml # Urine Diapers 1 General: Alert, Oriented X3, Cooperative HEENT: Atraumatic, PERRLA Neck: Supple, No JVD, No Thyromegaly Lungs: Normal Air Movement, Other (bilateral wheezing, diminished entry) Heart: Normal S1, Normal S2, Other (irregularly irregular) Abdomen: Normal Bowel Sounds, Soft, No Tenderness, No Hepatosplenomegaly, No Masses Extremities: No Clubbing, No Cyanosis, No Edema, Normal Pulses, No Tenderness/Swelling Skin: No Rashes, No Breakdown, No Significant Lesion Neuro: Normal Gait, Normal Speech, Strength at 5/5 X4 Ext, Normal Tone, Sensation Intact Psych/Mental Status: Mental Status NL, Mood NL Results Lab Laboratory Tests 10/03/20 05:20 A/P-Cardiology Admission Diagnosis Shortness of breath AE CHF COPD afib Assessment/Plan Status post acute respiratory failure, improving slowly, managed by primary care team. Chronic persistent atrial fibrillation, still having significant tachycardia due to her hypoxemia. She is tolerating her medications well. Continue on Cardizem, monitor blood pressure closely. Continue to monitor Congestive heart failure, acute on chronic left ventricular diastolic dysfunction and valvular heart disease, last echo was done in August 2020 showing ejection fraction 50-55 percent. Biatrial enlargement and moderate to severe mitral and tricuspid regurgitation, severe pulmonary hypertension with PA pressure 80-85 mmHg, COPD, followed and managed by Dr. Cage, acute exacerbation, her severe pulmonary hypertension is probably due to combination of COPD and mitral regurgitation Severe pulmonary hypertension, dilated heart chambers, moderate to severe mitral regurgitation. Conservative management H/o nonobstructive CAD per cardiac catheterization August 08, 2015 H/o carotid artery stenosis (right carotid stenting done by Dr. James October 2015) H/o iron deficiency anemia secondary to chronic blood loss H/o hypothyroidism Possible d/c to SNU Patient was seen and evaluated with [place], examination performed, management plan was discussed, agree with the current scribed note, I made few changes to the note using Italic font Patient was seen at bedside laying down in bed, on nasal cannula at this time Feeling better, still having significant wheezing but overall feeling better Plan continue on current treatment Possible transfer to custodial ALBERTA PALOMARES Oct 03, 2020 9:51 am LOUISE SPARROW MD Oct 03, 2020 1:07 pm
[2020-10-03] MEDS ORDERED: DIGO125T18 PO (10:51)
[2020-10-03] MEDS ORDERED: DILT60TA PO (10:51)
--- NOTE | 2020-10-03 11:13 | Progress Note - Hospitalist ---
AMBROCIO MATTHEWS [facility] 10/03/20 1113: Subjective HPI/CC On Admission Date Seen by Provider: Oct 03, 2020 Time Seen by Provider: 09:40 CC: SOB HPI: This is 75yoWF known to me from recent hospital stay for CHF and pneumonia with chronic O2 dependency of 5-6 liters at home who presents with exacerbation of CHF. Cardiology has been consulted and Pt required transfer to the ICU after I saw her and consulted Dr. Cage because of worsening SOB and requirements of more oxygen on Vapotherm. Pt otherwise doing well and denies any pain. Subjective/Events-last exam Anni is alert and oriented sitting up in bed. No acute events overnight. She is requiring less oxygen and is currently on 4L HF NC stating at 95%. Catheter was d/c yesterday. She is peeing without issue. She denies the following: Pain, N/V, F/C, Chest pain, Abdominal pain, dysuria, and incomplete emptying of urine. She is not sure if she has had more blood in her stool and she does feel like she is wheezing more this morning. Spoke to her about another breathing treatment. Review of Systems General: No Chills HEENT: No Head Aches Pulmonary: No Dyspnea, No Cough Cardiovascular: No: Chest Pain, Edema Gastrointestinal: No: Nausea, Vomiting, Abdominal Pain Genitourinary: No Dysuria, No Incontinence, No Hematuria Neurological: Weakness Objective Exam Vital Signs Vital Signs Date Time Temp Pulse Resp B/P (MAP) Pulse Ox O2 Delivery O2 Flow Rate FiO2 10/03/20 10:17 93 High Flow N/C 5.00 10/03/20 08:00 36.2 80 22 117/58 (77) 10/01/20 20:00 60 Capillary Refill : Less Than 3 Seconds General Appearance: Chronically ill, Thin Neck: Full Range of Motion, Non Tender Respiratory: Chest Non Tender, No Accessory Muscle Use, No Respiratory Distress, Wheezing (BL ) Cardiovascular: Regular Rate, Rhythm, No Edema, Normal Peripheral Pulses Gastrointestinal: Non Tender, Soft Back: No CVA Tenderness Extremity: No Calf Tenderness Neurologic/Psychiatric: Alert, Oriented x3 Skin: Normal Color, Warm/Dry Lymphatic: No Adenopathy Results/Procedures Lab Laboratory Tests 10/03/20 05:20 Patient resulted labs reviewed. Assessment/Plan Assessment and Plan Assess & Plan/Chief Complaint Assessment: AECOPD CHF AF O2 dependency PVD Plan: Transfer to ICU Monitor O2 09/26/20: Delirium management O2 Vapotherm Monitor AF 09/27/20: Monitor O2 AF management per Cardiology Vapotherm 09/28/20: Vapotherm wean PT OT 09/29/20: Back on Vapotherm AF managed by Dr Russell DNR now 09/30/20: Patient declined a bit Morphine and Ativan will be given in case she needs comfort care meds 10/01/20: Patient still receiving Vapotherm. Spoke to Dr. Cage he ended up ordering a BNP (168), Mag (3.8) and Pro-calcitonin (resulting), in addition to CXR. Believes the patient is requiring more oxygen. Continue PT Will discuss palliative care and anticipated d/c course 10/02/20: Improved breathing. No longer on vapotherm. Receiving 5L HF. Order PT/OT D/C catheter Heme Occult ordered for blood in stool. Anticipated d/c to custodial when appropriate. Monitor leukocytosis, likely 2/2 steroid use 10/03/2020 Will make breathing treatment PRN D/C PT/OT due to patients decreased respiratory reserve and ability (O2 stat down to 73% with PT) Monitor leukocytosis, likely 2/2 to steroid use Plan discharge to [facility] on hospice tomorrow. DAYANA REBOLLAR DO 10/04/20 0500: Subjective Subjective/Events-last exam Everything is set up for hospice [facility] at [facility] in [place] tomorrrow Procalcitonin was normal White count 19,000 On four liters of oxygen now Will discontinue catheter Will stop PT and OT since its wearing her out Will order nebulizers prn Overall she is stable Will update her PCP Dr. Thomas Assessment/Plan Assessment and Plan Assess & Plan/Chief Complaint [facility] tomorrow Supervisory-Addendum Brief Verification & Attestation Participated in pt care: history, MDM, physical Personally performed: exam, history, MDM, supervision of care Care discussed with: Medical Student Procedures: n/a Results interpretation: Verified all documentation Verification and Attestation of Medical Student E/M Service A medical student performed and documented this service in my presence. I reviewed and verified all information documented by the medical student and made modifications to such information, when appropriate. I personally performed the physical exam and medical decision making. Dayana Rebollar, Oct 04, 2020,04:59 AMBROCIO MATTHEWS [facility] Oct 03, 2020 11:13 DAYANA REBOLLAR DO Oct 04, 2020 05:00
--- NOTE | 2020-10-03 11:44 | Physical Therapy Progress Note ---
Therapy Progress Note received orders to cancel PT tx SANDRO WINCHESTER PT Oct 03, 2020 11:44
[2020-10-03 15:51] VITALS: BP 100/55
[2020-10-03] MEDS: MONTELUKAST 10 MG (SINGULAIR) TAB PO SCH (20:18)
[2020-10-03 23:44] VITALS: BP 105/52
[2020-10-04] MEDS: RT-ALBUTEROL INHALER HFA (VENTOLIN HFA) 18 GM IH SCH ×3 (01:55→10:11)
[2020-10-04 05:58] LABS: BASOPHILS # (AUTO) 0.1 10^3/uL (0.0-0.1); BASOPHILS % (AUTO) 0 % (0-10); EOSINOPHILS # (AUTO) 0.1 10^3/uL (0.0-0.3); EOSINOPHILS % (AUTO) 0 % (0-10); HEMATOCRIT 47 % (35-52); HEMOGLOBIN 15.5 g/dL (11.5-16.0); LYMPHOCYTES # (AUTO) 0.4 10^3/uL (1.0-4.0); LYMPHOCYTES % (AUTO) 3 % (12-44); MEAN CORPUSCULAR HEMOGLOBIN 33 pg (25-34); MEAN CORPUSCULAR HGB CONC 33 g/dL (32-36); MEAN CORPUSCULAR VOLUME 100 fL (80-99); MEAN PLATELET VOLUME 11.6 fL (9.0-12.2); MONOCYTES # (AUTO) 1.4 10^3/uL (0.0-1.0); MONOCYTES % (AUTO) 10 % (0-12); NEUTROPHILS # (AUTO) 11.6 10^3/uL (1.8-7.8); NEUTROPHILS % (AUTO) 84 % (42-75); PLATELET COUNT 200 10^3/uL (130-400); WHITE BLOOD COUNT 13.9 10^3/uL (4.3-11.0)
[2020-10-04 06:22] LABS: CALCIUM 8.4 MG/DL (8.5-10.1); CREATININE SERUM 0.96 MG/DL (0.60-1.30); MAGNESIUM 2.2 MG/DL (1.6-2.4); PHOSPHORUS 2.8 MG/DL (2.3-4.7); POTASSIUM 3.4 MMOL/L (3.6-5.0)
[2020-10-04] MEDS: PANTOPRAZOLE 40 MG (PROTONIX) TAB PO SCH (06:26)
[2020-10-04] MEDS: FUROSEMIDE 40 MG (LASIX) TAB PO SCH (06:26)
[2020-10-04] MEDS: LEVOTHYROXINE 100 MCG (LEVOTHROID) TAB PO SCH (06:26)
[2020-10-04 07:29] VITALS: BP 127/59
[2020-10-04] MEDS: APIXABAN 5 MG (ELIQUIS) TABLET PO SCH (08:21)
[2020-10-04] MEDS: risperiDONE 1 MG (RisperDAL) TAB PO SCH (08:21)
[2020-10-04] MEDS: DIGOXIN 0.125 MG (LANOXIN) TAB PO SCH (08:21)
[2020-10-04] MEDS: SILDENAFIL 20 MG (REVATIO) TAB NON-FORMULARY PO SCH ×2 (08:26→12:05)
[2020-10-04] MEDS ORDERED: FLUTICASONE/SALMETEROL 232-14 (AIRDUO RespiCLICK) IH SCH (09:58)
[2020-10-04] MEDS ORDERED: UMECLIDINIUM BROMIDE (INCRUSE ELLIPTA) 7'S IH SCH (10:03)
--- NOTE | 2020-10-04 11:05 | Cardiology Progress Note ---
Subjective Date Seen by Provider: Oct 04, 2020 Time Seen by Provider: 11:04 Subjective/Events-last exam patient is laying down in bed, still having shortness of breath. No chest pain Review of Systems General: No Chills, No Night Sweats; Fatigue; No Malaise, No Appetite, No Other HEENT: No Head Aches, No Visual Changes, No Eye Pain, No Ear Pain, No Dysphasia, No Sinus Congestion, No Post Nasal Drip, No Sore Throat, No Other Pulmonary: Dyspnea; No Cough, No Pleuritic Chest Pain, No Other Cardiovascular: No: Chest Pain, Palpitations, Orthopnea, Paroxysmal Noc. Dyspnea, Edema, Lt Headedness, Other Objective-Cardiology Exam Last Set of Vital Signs Vital Signs 10/01/20 10/04/20 10/04/20 20:00 07:29 10:12 Temp 36.6 Pulse 85 Resp 18 B/P (MAP) 127/59 (81) Pulse Ox 92 O2 Delivery High Flow N/C O2 Flow Rate 5.00 FiO2 60 Capillary Refill : Less Than 3 Seconds I&O Intake and Output 10/04/20 00:00 Intake Total 1590 ml Balance 1590 ml Intake Oral 1590 ml # Voids 3 # Urine Diapers 1 # Bowel Movements 2 General: Alert, Oriented X3, Cooperative HEENT: Atraumatic, PERRLA Neck: Supple, No JVD, No Thyromegaly Lungs: Normal Air Movement, Other (bilateral wheezing, diminished entry) Heart: Normal S1, Normal S2, Other (irregularly irregular) Abdomen: Normal Bowel Sounds, Soft, No Tenderness, No Hepatosplenomegaly, No Masses Extremities: No Clubbing, No Cyanosis, No Edema, Normal Pulses, No Tenderness/Swelling Skin: No Rashes, No Breakdown, No Significant Lesion Neuro: Normal Gait, Normal Speech, Strength at 5/5 X4 Ext, Normal Tone, Sensation Intact Psych/Mental Status: Mental Status NL, Mood NL Results Lab Laboratory Tests 10/04/20 05:34 A/P-Cardiology Admission Diagnosis Shortness of breath AE CHF COPD afib Assessment/Plan Status post acute respiratory failure, improving slowly, managed by primary care team. Chronic persistent atrial fibrillation, still having significant tachycardia due to her hypoxemia. She is tolerating her medications well. Continue on Cardizem, monitor blood pressure closely. Continue to monitor Congestive heart failure, acute on chronic left ventricular diastolic dysfunction and valvular heart disease, last echo was done in August 2020 showing ejection fraction 50-55 percent. Biatrial enlargement and moderate to severe mitral and tricuspid regurgitation, severe pulmonary hypertension with PA pressure 80-85 mmHg, COPD, followed and managed by Dr. Cage, acute exacerbation, her severe pulmonary hypertension is probably due to combination of COPD and mitral regurgitation Severe pulmonary hypertension, dilated heart chambers, moderate to severe mitral regurgitation. Conservative management H/o nonobstructive CAD per cardiac catheterization August 08, 2015 H/o carotid artery stenosis (right carotid stenting done by Dr. James October 2015) H/o iron deficiency anemia secondary to chronic blood loss H/o hypothyroidism Possible d/c to LOUISE MERCADO MD Oct 04, 2020 11:05
--- NOTE | 2020-10-04 11:38 | Discharge Summary ---
Diagnosis/Chief Complaint Date of Admission Sep 24, 2020 at 17:51 Date of Discharge Discharge Date: Oct 04, 2020 Discharge Diagnosis AECOPD AF Hypoxia Discharge Summary Discharge Physical Examination Allergies: Coded Allergies: valacyclovir HCl (Verified Allergy, Unknown, RASH, 08/30/14) Vitals & I&Os Vital Signs Date Time Temp Pulse Resp B/P (MAP) Pulse Ox O2 Delivery O2 Flow Rate FiO2 10/04/20 12:50 36.6 87 18 113/52 96 High Flow N/C 5.00 10/01/20 20:00 60 General Appearance: Alert, Oriented X3 Respiratory: Clear to Auscultation Cardiovascular: Regular Rate Hospital Course Was the Problem List Reviewed?: Yes Hospital Course: Anni Khan was admitted to [facility] on 09/24 and will be discha rged today to [facility]. She was admitted to the ICU for COPD exacerbation and hypoxia. PMH includes AFIB.CHF, HTN and O2 dependency at home. During her admission she was under the care of Internal Medicine , Pulmonary Dr. Cage, Cardiology Dr. Russell and RT,PT,OT. She presented with Leukocytosis and elevated BNP >900. She test (-) for COVID. She received multipe CXR while admitted. Treatment course included but was not limited to Vapotherm, respiratory therapy, IV lasix, abx and cardiac medication. Her labs have normalized or have reached an acceptable level. Recent CXR shows mild overall improvement. She is back down to her normal at home oxygen level. She will be discharged today in stable condition. The following information is only a summar y of the PT admission at [facility] and is not all inclusive. Please review entire chart for more information. AM[employer] MATTHEWS MED STUDENT In my medical opinion she has less than 6 months to live due to severe lung disease and overall debility and will sign up for hospice services. Labs (last 24 hrs) Laboratory Tests 09/24/20 14:20: White Blood Count 12.5H, Red Blood Count 4.11, Hemoglobin 13.6, Hematocrit 39, Mean Corpuscular Volume 96, Mean Corpuscular Hemoglobin 33, Mean Corpuscular Hemoglobin Concent 35, Red Cell Distribution Width 14.2, Platelet Count 287, Mean Platelet Volume 11.2, Immature Granulocyte % (Auto) 1, Neutrophils (%) (Auto) 90H, Lymphocytes (%) (Auto) 3L, Monocytes (%) (Auto) 6, Eosinophils (%) (Auto) 0, Basophils (%) (Auto) 0, Neutrophils # (Auto) 11.2H, Lymphocytes # (Auto) 0.4L, Monocytes # (Auto) 0.8, Eosinophils # (Auto) 0.0, Basophils # (Auto) 0.0, Immature Granulocyte # (Auto) 0.1, Neutrophils % (Manual) 88, Lymphocytes % (Manual) 5, Monocytes % (Manual) 7, Toxic Granulation 2+, Blood Morphology Comment NORMAL, Prothrombin Time 25.4H, INR Comment 2.3H, Activated Partial Thromboplast Time 40H, Sodium Level 132L, Potassium Level 3.6, Chloride Level 90L, Carbon Dioxide Level 26, Anion Gap 16H, Blood Urea Nitrogen 28H, Creatinine 1.30, Estimat Glomerular Filtration Rate 40, BUN/Creatinine Ratio 22, Glucose Level 129H, Calcium Level 8.9, Corrected Calcium 9.0, Magnesium Level 1.7, Total Bilirubin 1.5H, Aspartate Amino Transf (AST/SGOT) 26, Alanine Aminotransferase (ALT/SGPT) 25, Alkaline Phosphatase 67, Myoglobin 143.0H, Troponin I < 0.028, B-Type Natriuretic Peptide 953.9H, Total Protein 6.7, Albumin 3.9 09/24/20 15:35: Blood Gas Puncture Site LEFT WRIST, Blood Gas Patient Temperature 36.6, Arterial Blood pH 7.49H, Arterial Blood Partial Pressure CO2 38, Arterial Blood Partial Pressure O2 77L, Arterial Blood HCO3 29H, Arterial Blood Total CO2 30.5, Arterial Blood Oxygen Saturation 96, Arterial Blood Base Excess 5.8H, Wei Test YES-POS, Blood Gas Ventilator Setting NO, Blood Gas Inspired Oxygen 5 L 09/24/20 15:45: Lactic Acid Level 0.95 09/24/20 16:12: Urine Color YELLOW, Urine Clarity CLEAR, Urine pH 5.5, Urine Specific [place] 1.010L, Urine Protein NEGATIVE, Urine Glucose (UA) NEGATIVE, Urine Ketones TRACEH, Urine Nitrite NEGATIVE, Urine Bilirubin NEGATIVE, Urine Urobilinogen 1.0, Urine Leukocyte Esterase NEGATIVE, Urine RBC (Auto) NEGATIVE, Urine RBC RARE, Urine WBC NONE, Urine Squamous Epithelial Cells 10-25H, Urine Crystals NONE, Urine Bacteria TRACE, Urine Casts NONE, Urine Mucus NEGATIVE, Urine Culture Indicated CULTURE PENDING 09/24/20 17:51: Lab Scanned Report Referred Lab Report 09/25/20 05:21: White Blood Count 9.2, Red Blood Count 3.84, Hemoglobin 12.8, Hematocrit 38, Mean Corpuscular Volume 98, Mean Corpuscular Hemoglobin 33, Mean Corpuscular Hemoglobin Concent 34, Red Cell Distribution Width 14.4, Platelet Count 219, Mean Platelet Volume 10.8, Immature Granulocyte % (Auto) 0, Neutrophils (%) (Auto) 80H, Lymphocytes (%) (Auto) 6L, Monocytes (%) (Auto) 12, Eosinophils (%) (Auto) 1, Basophils (%) (Auto) 0, Neutrophils # (Auto) 7.3, Lymphocytes # (Auto) 0.6L, Monocytes # (Auto) 1.1H, Eosinophils # (Auto) 0.1, Basophils # (Auto) 0.0, Immature Granulocyte # (Auto) 0.0, Sodium Level 138, Potassium Level 3.4L, Chloride Level 96L, Carbon Dioxide Level 28, Anion Gap 14, Blood Urea Nitrogen 23H, Creatinine 1.10, Estimat Glomerular Filtration Rate 49, BUN/Creatinine Ratio 21, Glucose Level 105, Calcium Level 8.3L, Corrected Calcium 8.9, Total Bilirubin 0.9, Aspartate Amino Transf (AST/SGOT) 27, Alanine Aminotransferase (ALT/SGPT) 19, Alkaline Phosphatase 55, B-Type Natriuretic Peptide 1181.1H, Total Protein 5.7L, Albumin 3.3 09/25/20 10:25: Blood Gas Puncture Site LR, Blood Gas Patient Temperature 37, Arterial Blood pH 7.48H, Arterial Blood Partial Pressure CO2 43, Arterial Blood Partial Pressure O2 133H, Arterial Blood HCO3 31H, Arterial Blood Total CO2 32.7H, Arterial Blood Oxygen Saturation 99, Arterial Blood Base Excess 7.6H, Wei Test YES-POS, Blood Gas Ventilator Setting NO, Blood Gas Inspired Oxygen 80% 09/25/20 14:23: Sodium Level 137, Potassium Level 3.1L, Chloride Level 94L, Carbon Dioxide Level 32, Anion Gap 11, Blood Urea Nitrogen 19H, Creatinine 1.11, Estimat Glomerular Filtration Rate 48, BUN/Creatinine Ratio 17, Glucose Level 183H, Calcium Level 8.6, Corrected Calcium 9.1, Total Bilirubin 0.9, Aspartate Amino Transf (AST/SGOT) 19, Alanine Aminotransferase (ALT/SGPT) 18, Alkaline Phosphatase 59, Total Protein 5.7L, Albumin 3.4, Phosphorus Level 2.9, Magnesium Level 1.6, Thyroid Stimulating Hormone (TSH) 1.27 09/25/20 21:00: Sodium Level 136, Potassium Level 4.1, Chloride Level 97L, Carbon Dioxide Level 27, Anion Gap 12, Blood Urea Nitrogen 19H, Creatinine 1.05, Estimat Glomerular Filtration Rate 51, BUN/Creatinine Ratio 18, Glucose Level 211H, Calcium Level 8.1L, Magnesium Level 1.5L 09/26/20 00:30: Coronavirus 2019 (GOOD) Negative 09/26/20 03:30: Blood Gas Puncture Site RIGHT RADIAL, Blood Gas Patient Temperature 35.6, Arterial Blood pH 7.51H, Arterial Blood Partial Pressure CO2 38, Arterial Blood Partial Pressure O2 63L, Arterial Blood HCO3 30H, Arterial Blood Total CO2 31.3H , Arterial Blood Oxygen Saturation 95, Arterial Blood Base Excess 6.5H, Wei Test YES-POS, Blood Gas Ventilator Setting NO, Blood Gas Inspired Oxygen 60% 09/26/20 03:35: Sodium Level 136, Potassium Level 4.5, Chloride Level 96L, Carbon Dioxide Level 26, Anion Gap 14, Blood Urea Nitrogen 20H, Creatinine 1.12, Estimat Glomerular Filtration Rate 48, BUN/Creatinine Ratio 18, Glucose Level 183H, Calcium Level 8.9, Magnesium Level 1.6, White Blood Count 9.5, Red Blood Count 4.03, Hemoglobin 13.3, Hematocrit 39, Mean Corpuscular Volume 97, Mean Corpuscular Hemoglobin 33, Mean Corpuscular Hemoglobin Concent 34, Red Cell Distribution Width 15.0H, Platelet Count 276, Mean Platelet Volume 10.6, Immature Granulocyte % (Auto) 1, Neutrophils (%) (Auto) 95H, Lymphocytes (%) (Auto) 2L, Monocytes (%) (Auto) 2, Eosinophils (%) (Auto) 0, Basophils (%) (Auto) 0, Neutrophils # (Auto) 9.1H, Lymphocytes # (Auto) 0.2L, Monocytes # (Auto) 0.2, Eosinophils # (Auto) 0.0, Basophils # (Auto) 0.0, Immature Granulocyte # (Auto) 0.1, D-Dimer 0.75H, Phosphorus Level 2.5, Triglycerides Level 68, Cholesterol Level 123, LDL Cholesterol Direct 53, VLDL Cholesterol 14, HDL Cholesterol 49 09/27/20 02:45: White Blood Count 9.6, Red Blood Count 4.10, Hemoglobin 13.4, Hematocrit 40, Mean Corpuscular Volume 98, Mean Corpuscular Hemoglobin 33, Mean Corpuscular Hemoglobin Concent 33, Red Cell Distribution Width 14.7H, Platelet Count 213, Mean Platelet Volume 10.7, Immature Granulocyte % (Auto) 1, Neutrophils (%) (Auto) 93H, Lymphocytes (%) (Auto) 3L, Monocytes (%) (Auto) 4, Eosinophils (%) (Auto) 0, Basophils (%) (Auto) 0, Neutrophils # (Auto) 8.9H, Lymphocytes # (Auto) 0.3L, Monocytes # (Auto) 0.4, Eosinophils # (Auto) 0.0, Basophils # (Auto) 0.0, Immature Granulocyte # (Auto) 0.1, Sodium Level 139, Potassium Level 4.2, Chloride Level 97L, Carbon Dioxide Level 28, Anion Gap 14, Blood Urea Nitrogen 15, Creatinine 0.90, Estimat Glomerular Filtration Rate > 60, BUN/Creatinine Ratio 17, Glucose Level 144H, Calcium Level 8.2L, Phosphorus Level 3.8, Magnesium Level 2.1 09/28/20 05:14: White Blood Count 13.3H, Red Blood Count 4.48, Hemoglobin 14.8, Hematocrit 44, Mean Corpuscular Volume 99, Mean Corpuscular Hemoglobin 33, Mean Corpuscular Hemoglobin Concent 33, Red Cell Distribution Width 14.8H, Platelet Count 281, Mean Platelet Volume 10.4, Immature Granulocyte % (Auto) 1, Neutrophils (%) (Auto) 91H, Lymphocytes (%) (Auto) 1L, Monocytes (%) (Auto) 7, Eosinophils (%) (Auto) 0, Basophils (%) (Auto) 0, Neutrophils # (Auto) 12.2H, Lymphocytes # (Auto) 0.2L, Monocytes # (Auto) 0.9, Eosinophils # (Auto) 0.0, Basophils # (Auto) 0.0, Immature Granulocyte # (Auto) 0.1, Sodium Level 139, Potassium Level 4.2, Chloride Level 97L, Carbon Dioxide Level 27, Anion Gap 15H, Blood Urea Nitrogen 21H, Creatinine 1.03, Estimat Glomerular Filtration Rate 52, BUN/Creatinine Ratio 20, Glucose Level 153H, Calcium Level 8.8 09/29/20 04:45: White Blood Count 9.2, Red Blood Count 4.39, Hemoglobin 14.7, Hematocrit 43, Mean Corpuscular Volume 98, Mean Corpuscular Hemoglobin 34, Mean Corpuscular Hemoglobin Concent 34, Red Cell Distribution Width 14.6H, Platelet Count 246, Mean Platelet Volume 10.5, Immature Granulocyte % (Auto) 1, Neutrophils (%) (Auto) 90H, Lymphocytes (%) (Auto) 2L, Monocytes (%) (Auto) 8, Eosinophils (%) (Auto) 0, Basophils (%) (Auto) 0, Neutrophils # (Auto) 8.2H, Lymphocytes # (Auto) 0.2L, Monocytes # (Auto) 0.7, Eosinophils # (Auto) 0.0, Basophils # (Auto) 0.0, Immature Granulocyte # (Auto) 0.1, Sodium Level 141, Potassium Level 3.8, Chloride Level 95L, Carbon Dioxide Level 30, Anion Gap 16H, Blood Urea Nitrogen 19H, Creatinine 0.88, Estimat Glomerular Filtration Rate > 60, BUN/Creatinine Ratio 22, Glucose Level 152H, Calcium Level 8.5, Magnesium Level 2.1 09/30/20 05:31: White Blood Count 9.6, Red Blood Count 4.66, Hemoglobin 15.2, Hematocrit 46, Mean Corpuscular Volume 99, Mean Corpuscular Hemoglobin 33, Mean Corpuscular Hemoglobin Concent 33, Red Cell Distribution Width 14.6H, Platelet Count 223, Mean Platelet Volume 11.1, Immature Granulocyte % (Auto) 1, Neutrophils (%) (Auto) 90H, Lymphocytes (%) (Auto) 2L, Monocytes (%) (Auto) 7, Eosinophils (%) (Auto) 0, Basophils (%) (Auto) 0, Neutrophils # (Auto) 8.6H, Lymphocytes # (Auto) 0.2L, Monocytes # (Auto) 0.7, Eosinophils # (Auto) 0.0, Basophils # (Auto) 0.0, Immature Granulocyte # (Auto) 0.1, Sodium Level 140, Potassium Level 4.9, Chloride Level 94L, Carbon Dioxide Level 31, Anion Gap 15H, Blood Urea Nitrogen 20H, Creatinine 0.93, Estimat Glomerular Filtration Rate 59, BUN/Creatinine Ratio 22, Glucose Level 142H, Calcium Level 8.5 10/01/20 05:38: White Blood Count 13.0H, Red Blood Count 4.70, Hemoglobin 15.4, Hematocrit 47, Mean Corpuscular Volume 99, Mean Corpuscular Hemoglobin 33, Mean Corpuscular Hemoglobin Concent 33, Red Cell Distribution Width 13.9, Platelet Count 224, Mean Platelet Volume 10.6, Immature Granulocyte % (Auto) 2, Neutrophils (%) (Auto) 90H, Lymphocytes (%) (Auto) 2L, Monocytes (%) (Auto) 7, Eosinophils (%) (Auto) 0, Basophils (%) (Auto) 0, Neutrophils # (Auto) 11.8H, Lymphocytes # (Auto) 0.2L, Monocytes # (Auto) 0.9, Eosinophils # (Auto) 0.0, Basophils # (Auto) 0.0, Immature Granulocyte # (Auto) 0.2H, Neutrophils % (Manual) 93, Lymphocytes % (Manual) 1, Monocytes % (Manual) 6, Acanthocytes SLIGHT, Sodium Level 139, Potassium Level 3.5L, Chloride Level 91L, Carbon Dioxide Level 35H, Anion Gap 13, Blood Urea Nitrogen 23H, Creatinine 0.86, Estimat Glomerular Filtration Rate > 60, BUN/Creatinine Ratio 27, Glucose Level 152H, Calcium Level 8.5, B-Type Natriuretic Peptide 168.8H 10/01/20 06:45: Phosphorus Level 3.8, Magnesium Level 2.2, Procalcitonin 0.02 10/02/20 05:19: White Blood Count 17.0H, Red Blood Count 4.51, Hemoglobin 15.1, Hematocrit 45, Mean Corpuscular Volume 99, Mean Corpuscular Hemoglobin 34, Mean Corpuscular Hemoglobin Concent 34, Red Cell Distribution Width 13.7, Platelet Count 219, Mean Platelet Volume 10.7, Immature Granulocyte % (Auto) 1, Neutrophils (%) (Auto) 92H, Lymphocytes (%) (Auto) 1L, Monocytes (%) (Auto) 6, Eosinophils (%) (Auto) 0, Basophils (%) (Auto) 0, Neutrophils # (Auto) 15.6H, Lymphocytes # (Auto) 0.2L, Monocytes # (Auto) 1.0, Eosinophils # (Auto) 0.0, Basophils # (Auto) 0.0, Immature Granulocyte # (Auto) 0.2H, Sodium Level 139, Potassium Level 3.5L, Chloride Level 91L, Carbon Dioxide Level 35H, Anion Gap 13, Blood Urea Nitrogen 31H, Creatinine 0.98, Estimat Glomerular Filtration Rate 55, BUN/Creatinine Ratio 32, Glucose Level 158H, Calcium Level 8.2L, Phosphorus Level 4.4, Magnesium Level 2.3 10/03/20 05:20: White Blood Count 19.2H, Red Blood Count 4.45, Hemoglobin 14.9, Hematocrit 44, Mean Corpuscular Volume 98, Mean Corpuscular Hemoglobin 34, Mean Corpuscular Hemoglobin Concent 34, Red Cell Distribution Width 13.4, Platelet Count 252, Mean Platelet Volume 11.2, Immature Granulocyte % (Auto) 1, Neutrophils (%) (Auto) 89H, Lymphocytes (%) (Auto) 1L, Monocytes (%) (Auto) 9, Eosinophils (%) (Auto) 0, Basophils (%) (Auto) 0, Neutrophils # (Auto) 17.0H, Lymphocytes # (Auto) 0.2L, Monocytes # (Auto) 1.7H, Eosinophils # (Auto) 0.0, Basophils # (Auto) 0.0, Immature Granulocyte # (Auto) 0.3H, Sodium Level 140, Potassium Level 3.4L, Chloride Level 90L, Carbon Dioxide Level 37H, Anion Gap 13, Blood Urea Nitrogen 44H, Creatinine 1.08, Estimat Glomerular Filtration Rate 50, BUN/Creatinine Ratio 41, Glucose Level 143H, Calcium Level 8.3L, Phosphorus Level 3.9, Magnesium Level 2.3 10/03/20 10:00: Coronavirus 2019 (GOOD) Negative 10/04/20 05:34: White Blood Count 13.9H, Red Blood Count 4.68, Hemoglobin 15.5, Hematocrit 47, Mean Corpuscular Volume 100H, Mean Corpuscular Hemoglobin 33, Mean Corpuscular Hemoglobin Concent 33, Red Cell Distribution Width 13.7, Platelet Count 200, Mean Platelet Volume 11.6, Immature Granulocyte % (Auto) 3, Neutrophils (%) (Auto) 84H, Lymphocytes (%) (Auto) 3L, Monocytes (%) (Auto) 10, Eosinophils (%) (Auto) 0, Basophils (%) (Auto) 0, Neutrophils # (Auto) 11.6H, Lymphocytes # (Auto) 0.4L, Monocytes # (Auto) 1.4H, Eosinophils # (Auto) 0.1, Basophils # (Auto) 0.1, Immature Granulocyte # (Auto) 0.4H, Sodium Level 143, Potassium Level 3.4L, Chloride Level 92L, Carbon Dioxide Level 38H, Anion Gap 13, Blood Urea Nitrogen 35H, Creatinine 0.96, Estimat Glomerular Filtration Rate 57, BUN/Creatinine Ratio 36, Glucose Level 133H, Calcium Level 8.4L, Phosphorus Level 2.8, Magnesium Level 2.2 Microbiology 09/25/20 MRSA Screen - Final, Complete MRSA not isolated 09/24/20 Blood Culture - Final, Complete No growth 09/24/20 Urine Culture - Final, Complete Enterococcus faecalis Mixed Bacterial Genesis Pending Labs Microbiology Date/Time Source Procedure Growth Status 09/25/20 11:15 Nasal MRSA Screen - Final MRSA not isolated Complete 09/24/20 18:00 Peripheral Lt Ac Blood Culture - Final No growth Complete 09/24/20 16:12 Urine Clean Catch Urine Culture - Final Enterococcus faecalis Mixed Bacterial Genesis Complete 09/24/20 15:45 Peripheral Rt Hand Blood Culture - Final No growth Complete Laboratory Tests 09/24/20 14:20: White Blood Count 12.5, Red Blood Count 4.11, Hemoglobin 13.6, Hematocrit 39, Mean Corpuscular Volume 96, Mean Corpuscular Hemoglobin 33, Mean Corpuscular Hemoglobin Concent 35, Red Cell Distribution Width 14.2, Platelet Count 287, Mean Platelet Volume 11.2, Immature Granulocyte % (Auto) 1, Neutrophils (%) (Auto) 90, Lymphocytes (%) (Auto) 3, Monocytes (%) (Auto) 6, Eosinophils (%) (Auto) 0, Basophils (%) (Auto) 0, Neutrophils # (Auto) 11.2, Lymphocytes # (Auto) 0.4, Monocytes # (Auto) 0.8, Eosinophils # (Auto) 0.0, Basophils # (Auto) 0.0, Immature Granulocyte # (Auto) 0.1, Neutrophils % (Manual) 88, Lymphocytes % (Manual) 5, Monocytes % (Manual) 7, Toxic Granulation 2+, Blood Morphology Comment NORMAL, Prothrombin Time 25.4, INR Comment 2.3, Activated Partial Thromboplast Time 40, Sodium Level 132, Potassium Level 3.6, Chloride Level 90, Carbon Dioxide Level 26, Anion Gap 16, Blood Urea Nitrogen 28, Creatinine 1.30, Estimat Glomerular Filtration Rate 40, BUN/Creatinine Ratio 22, Glucose Level 129, Calcium Level 8.9, Corrected Calcium 9.0, Magnesium Level 1.7, Total Bilirubin 1.5, Aspartate Amino Transf (AST/SGOT) 26, Alanine Aminotransferase (ALT/SGPT) 25, Alkaline Phosphatase 67, Myoglobin 143.0, Troponin I < 0.028, B- Type Natriuretic Peptide 953.9, Total Protein 6.7, Albumin 3.9 09/24/20 15:35: Blood Gas Puncture Site LEFT WRIST, Blood Gas Patient Temperature 36.6, Arterial Blood pH 7.49, Arterial Blood Partial Pressure CO2 38, Arterial Blood Partial Pressure O2 77, Arterial Blood HCO3 29, Arterial Blood Total CO2 30.5, Arterial Blood Oxygen Saturation 96, Arterial Blood Base Excess 5.8, Wei Test YES-POS, Blood Gas Ventilator Setting NO, Blood Gas Inspired Oxygen 5 L 09/24/20 15:45: Lactic Acid Level 0.95 09/24/20 16:12: Urine Color YELLOW, Urine Clarity CLEAR, Urine pH 5.5, Urine Specific [place] 1.010, Urine Protein NEGATIVE, Urine Glucose (UA) NEGATIVE, Urine Ketones TRACE, Urine Nitrite NEGATIVE, Urine Bilirubin NEGATIVE, Urine Urobilinogen 1.0, Urine Leukocyte Esterase NEGATIVE, Urine RBC (Auto) NEGATIVE, Urine RBC RARE, Urine WBC NONE, Urine Squamous Epithelial Cells 10-25, Urine Crystals NONE, Urine Bacteria TRACE, Urine Casts NONE, Urine Mucus NEGATIVE, Urine Culture Indicated CULTURE PENDING 09/24/20 17:51: Lab Scanned Report Referred Lab Report 09/25/20 05:21: White Blood Count 9.2, Red Blood Count 3.84, Hemoglobin 12.8, Hematocrit 38, Mean Corpuscular Volume 98, Mean Corpuscular Hemoglobin 33, Mean Corpuscular Hemoglobin Concent 34, Red Cell Distribution Width 14.4, Platelet Count 219, Mean Platelet Volume 10.8, Immature Granulocyte % (Auto) 0, Neutrophils (%) (Auto) 80, Lymphocytes (%) (Auto) 6, Monocytes (%) (Auto) 12, Eosinophils (%) (Auto) 1, Basophils (%) (Auto) 0, Neutrophils # (Auto) 7.3, Lymphocytes # (Auto) 0.6, Monocytes # (Auto) 1.1, Eosinophils # (Auto) 0.1, Basophils # (Auto) 0.0, Immature Granulocyte # (Auto) 0.0, Sodium Level 138, Potassium Level 3.4, Chloride Level 96, Carbon Dioxide Level 28, Anion Gap 14, Blood Urea Nitrogen 23, Creatinine 1.10, Estimat Glomerular Filtration Rate 49, BUN/Creatinine Ratio 21, Glucose Level 105, Calcium Level 8.3, Corrected Calcium 8.9, Total Bilirubin 0.9, Aspartate Amino Transf (AST/SGOT) 27, Alanine Aminotransferase (ALT/SGPT) 19, Alkaline Phosphatase 55, B-Type Natriuretic Peptide 1181.1, Total Protein 5.7, Albumin 3.3 09/25/20 10:25: Blood Gas Puncture Site LR, Blood Gas Patient Temperature 37, Arterial Blood pH 7.48, Arterial Blood Partial Pressure CO2 43, Arterial Blood Partial Pressure O2 133, Arterial Blood HCO3 31, Arterial Blood Total CO2 32.7, Arterial Blood Oxygen Saturation 99, Arterial Blood Base Excess 7.6, Wei Test YES-POS, Blood Gas Ventilator Setting NO, Blood Gas Inspired Oxygen 80% 09/25/20 14:23: Sodium Level 137, Potassium Level 3.1, Chloride Level 94, Carbon Dioxide Level 32, Anion Gap 11, Blood Urea Nitrogen 19, Creatinine 1.11, Estimat Glomerular Filtration Rate 48, BUN/Creatinine Ratio 17, Glucose Level 183, Calcium Level 8.6, Corrected Calcium 9.1, Total Bilirubin 0.9, Aspartate Amino Transf (AST/SGOT) 19, Alanine Aminotransferase (ALT/SGPT) 18, Alkaline Phosphatase 59, Total Protein 5.7, Albumin 3.4, Phosphorus Level 2.9, Magnesium Level 1.6, Thyroid Stimulating Hormone (TSH) 1.27 09/25/20 21:00: Sodium Level 136, Potassium Level 4.1, Chloride Level 97, Carbon Dioxide Level 27, Anion Gap 12, Blood Urea Nitrogen 19, Creatinine 1.05, Estimat Glomerular Filtration Rate 51, BUN/Creatinine Ratio 18, Glucose Level 211, Calcium Level 8.1, Magnesium Level 1.5 09/26/20 00:30: Coronavirus 2019 (GOOD) Negative 09/26/20 03:30: Blood Gas Puncture Site RIGHT RADIAL, Blood Gas Patient Temperature 35.6, Arterial Blood pH 7.51, Arterial Blood Partial Pressure CO2 38, Arterial Blood Partial Pressure O2 63, Arterial Blood HCO3 30, Arterial Blood Total CO2 31.3, Arterial Blood Oxygen Saturation 95, Arterial Blood Base Excess 6.5, Wei Test YES-POS, Blood Gas Ventilator Setting NO, Blood Gas Inspired Oxygen 60% 09/26/20 03:35: Sodium Level 136, Potassium Level 4.5, Chloride Level 96, Carbon Dioxide Level 26, Anion Gap 14, Blood Urea Nitrogen 20, Creatinine 1.12, Estimat Glomerular Filtration Rate 48, BUN/Creatinine Ratio 18, Glucose Level 183, Calcium Level 8.9, Magnesium Level 1.6, White Blood Count 9.5, Red Blood Count 4.03, Hemoglobin 13.3, Hematocrit 39, Mean Corpuscular Volume 97, Mean Corpuscular He moglobin 33, Mean Corpuscular Hemoglobin Concent 34, Red Cell Distribution Width 15.0, Platelet Count 276, Mean Platelet Volume 10.6, Immature Granulocyte % (Auto) 1, Neutrophils (%) (Auto) 95, Lymphocytes (%) (Auto) 2, Monocytes (%) (Auto) 2, Eosinophils (%) (Auto) 0, Basophils (%) (Auto) 0, Neutrophils # (Auto) 9.1, Lymphocytes # (Auto) 0.2, Monocytes # (Auto) 0.2, Eosinophils # (Auto) 0.0, Basophils # (Auto) 0.0, Immature Granulocyte # (Auto) 0.1, D-Dimer 0.75, Phosphorus Level 2.5, Triglycerides Level 68, Cholesterol Level 123, LDL Cholesterol Direct 53, VLDL Cholesterol 14, HDL Cholesterol 49 09/27/20 02:45: White Blood Count 9.6, Red Blood Count 4.10, Hemoglobin 13.4, Hematocrit 40, Mean Corpuscular Volume 98, Mean Corpuscular Hemoglobin 33, Mean Corpuscular Hemoglobin Concent 33, Red Cell Distribution Width 14.7, Platelet Count 213, Mean Platelet Volume 10.7, Immature Granulocyte % (Auto) 1, Neutrophils (%) (Auto) 93, Lymphocytes (%) (Auto) 3, Monocytes (%) (Auto) 4, Eosinophils (%) (Auto) 0, Basophils (%) (Auto) 0, Neutrophils # (Auto) 8.9, Lymphocytes # (Auto) 0.3, Monocytes # (Auto) 0.4, Eosinophils # (Auto) 0.0, Basophils # (Auto) 0.0, Immature Granulocyte # (Auto) 0.1, Sodium Level 139, Potassium Level 4.2, Chloride Level 97, Carbon Dioxide Level 28, Anion Gap 14, Blood Urea Nitrogen 15, Creatinine 0.90, Estimat Glomerular Filtration Rate > 60, BUN/Creatinine Ratio 17, Glucose Level 144, Calcium Level 8.2, Phosphorus Level 3.8, Magnesium Level 2.1 09/28/20 05:14: White Blood Count 13.3, Red Blood Count 4.48, Hemoglobin 14.8, Hematocrit 44, Mean Corpuscular Volume 99, Mean Corpuscular Hemoglobin 33, Mean Corpuscular Hemoglobin Concent 33, Red Cell Distribution Width 14.8, Platelet Count 281, Mean Platelet Volume 10.4, Immature Granulocyte % (Auto) 1, Neutrophils (%) (Auto) 91, Lymphocytes (%) (Auto) 1, Monocytes (%) (Auto) 7, Eosinophils (%) (Auto) 0, Basophils (%) (Auto) 0, Neutrophils # (Auto) 12.2, Lymphocytes # (Auto) 0.2, Monocytes # (Auto) 0.9, Eosinophils # (Auto) 0.0, Basophils # (Auto) 0.0, Immature Granulocyte # (Auto) 0.1, Sodium Level 139, Potassium Level 4.2, Chloride Level 97, Carbon Dioxide Level 27, Anion Gap 15, Blood Urea Nitrogen 21, Creatinine 1.03, Estimat Glomerular Filtration Rate 52, BUN/Creatinine Ratio 20, Glucose Level 153, Calcium Level 8.8 09/29/20 04:45: White Blood Count 9.2, Red Blood Count 4.39, Hemoglobin 14.7, Hematocrit 43, Mean Corpuscular Volume 98, Mean Corpuscular Hemoglobin 34, Mean Corpuscular Hemoglobin Concent 34, Red Cell Distribution Width 14.6, Platelet Count 246, Mean Platelet Volume 10.5, Immature Granulocyte % (Auto) 1, Neutrophils (%) (Auto) 90, Lymphocytes (%) (Auto) 2, Monocytes (%) (Auto) 8, Eosinophils (%) (Auto) 0, Basophils (%) (Auto) 0, Neutrophils # (Auto) 8.2, Lymphocytes # (Auto) 0.2, Monocytes # (Auto) 0.7, Eosinophils # (Auto) 0.0, Basophils # (Auto) 0.0, I mmature Granulocyte # (Auto) 0.1, Sodium Level 141, Potassium Level 3.8, Chloride Level 95, Carbon Dioxide Level 30, Anion Gap 16, Blood Urea Nitrogen 19, Creatinine 0.88, Estimat Glomerular Filtration Rate > 60, BUN/Creatinine Ratio 22, Glucose Level 152, Calcium Level 8.5, Magnesium Level 2.1 09/30/20 05:31: White Blood Count 9.6, Red Blood Count 4.66, Hemoglobin 15.2, Hematocrit 46, Mean Corpuscular Volume 99, Mean Corpuscular Hemoglobin 33, Mean Corpuscular Hemoglobin Concent 33, Red Cell Distribution Width 14.6, Platelet Count 223, Mean Platelet Volume 11.1, Immature Granulocyte % (Auto) 1, Neutrophils (%) (Auto) 90, Lymphocytes (%) (Auto) 2, Monocytes (%) (Auto) 7, Eosinophils (%) (Auto) 0, Basophils (%) (Auto) 0, Neutrophils # (Auto) 8.6, Lymphocytes # (Auto) 0.2, Monocytes # (Auto) 0.7, Eosinophils # (Auto) 0.0, Basophils # (Auto) 0.0, Immature Granulocyte # (Auto) 0.1, Sodium Level 140, Potassium Level 4.9, Chloride Level 94, Carbon Dioxide Level 31, Anion Gap 15, Blood Urea Nitrogen 20, Creatinine 0.93, Estimat Glomerular Filtration Rate 59, BUN/Creatinine Ratio 22, Glucose Level 142, Calcium Level 8.5 10/01/20 05:38: White Blood Count 13.0, Red Blood Count 4.70, Hemoglobin 15.4, Hematocrit 47, Mean Corpuscular Volume 99, Mean Corpuscular Hemoglobin 33, Mean Corpuscular Hemoglobin Concent 33, Red Cell Distribution Width 13.9, Platelet Count 224, Mean Platelet Volume 10.6, Immature Granulocyte % (Auto) 2, Neutrophils (%) (Auto) 90, Lymphocytes (%) (Auto) 2, Monocytes (%) (Auto) 7, Eosinophils (%) (Auto) 0, Basophils (%) (Auto) 0, Neutrophils # (Auto) 11.8, Lymphocytes # (Auto) 0.2, Monocytes # (Auto) 0.9, Eosinophils # (Auto) 0.0, Basophils # (Auto) 0.0, Immature Granulocyte # (Auto) 0.2, Neutrophils % (Manual) 93, Lymphocytes % (Manual) 1, Monocytes % (Manual) 6, Acanthocytes SLIGHT, Sodium Level 139, Potassium Level 3.5, Chloride Level 91, Carbon Dioxide Level 35, Anion Gap 13, Blood Urea Nitrogen 23, Creatinine 0.86, Estimat Glomerular Filtration Rate > 60, BUN/Creatinine Ratio 27, Glucose Level 152, Calcium Level 8.5, B-Type Natriuretic Peptide 168.8 10/01/20 06:45: Phosphorus Level 3.8, Magnesium Level 2.2, Procalcitonin 0.02 10/02/20 05:19: White Blood Count 17.0, Red Blood Count 4.51, Hemoglobin 15.1, Hematocrit 45, Mean Corpuscular Volume 99, Mean Corpuscular Hemoglobin 34, Mean Corpuscular He moglobin Concent 34, Red Cell Distribution Width 13.7, Platelet Count 219, Mean Platelet Volume 10.7, Immature Granulocyte % (Auto) 1, Neutrophils (%) (Auto) 92, Lymphocytes (%) (Auto) 1, Monocytes (%) (Auto) 6, Eosinophils (%) (Auto) 0, Basophils (%) (Auto) 0, Neutrophils # (Auto) 15.6, Lymphocytes # (Auto) 0.2, Monocytes # (Auto) 1.0, Eosinophils # (Auto) 0.0, Basophils # (Auto) 0.0, Immature Granulocyte # (Auto) 0.2, Sodium Level 139, Potassium Level 3.5, Chloride Level 91, Carbon Dioxide Level 35, Anion Gap 13, Blood Urea Nitrogen 31, Creatinine 0.98, Estimat Glomerular Filtration Rate 55, BUN/Creatinine Ratio 32, Glucose Level 158, Calcium Level 8.2, Phosphorus Level 4.4, Magnesium Level 2.3 10/03/20 05:20: White Blood Count 19.2, Red Blood Count 4.45, Hemoglobin 14.9, Hematocrit 44, Mean Corpuscular Volume 98, Mean Corpuscular Hemoglobin 34, Mean Corpuscular Hemoglobin Concent 34, Red Cell Distribution Width 13.4, Platelet Count 252, Mean Platelet Volume 11.2, Immature Granulocyte % (Auto) 1, Neutrophils (%) (Auto) 89, Lymphocytes (%) (Auto) 1, Monocytes (%) (Auto) 9, Eosinophils (%) (Auto) 0, Basophils (%) (Auto) 0, Neutrophils # (Auto) 17.0, Lymphocytes # (Auto) 0.2, Monocytes # (Auto) 1.7, Eosinophils # (Auto) 0.0, Basophils # (Auto) 0.0, Immature Granulocyte # (Auto) 0.3, Sodium Level 140, Potassium Level 3.4, Chloride Level 90, Carbon Dioxide Level 37, Anion Gap 13, Blood Urea Nitrogen 44, Creatinine 1.08, Estimat Glomerular Filtration Rate 50, BUN/Creatinine Ratio 41, Glucose Level 143, Calcium Level 8.3, Phosphorus Level 3.9, Magnesium Level 2.3 10/03/20 10:00: Coronavirus 2019 (GOOD) Negative 10/04/20 05:34: White Blood Count 13.9, Red Blood Count 4.68, Hemoglobin 15.5, Hematocrit 47, Mean Corpuscular Volume 100, Mean Corpuscular Hemoglobin 33, Mean Corpuscular Hemoglobin Concent 33, Red Cell Distribution Width 13.7, Platelet Count 200, Mean Platelet Volume 11.6, Immature Granulocyte % (Auto) 3, Neutrophils (%) (Auto) 84, Lymphocytes (%) (Auto) 3, Monocytes (%) (Auto) 10, Eosinophils (%) (Auto) 0, Basophils (%) (Auto) 0, Neutrophils # (Auto) 11.6, Lymphocytes # (Auto) 0.4, Monocytes # (Auto) 1.4, Eosinophils # (Auto) 0.1, Basophils # (Auto) 0.1, Immature Granulocyte # (Auto) 0.4, Sodium Level 143, Potassium Level 3.4, Chloride Level 92, Carbon Dioxide Level 38, Anion Gap 13, Blood Urea Nitrogen 35, Creatinine 0.96, Estimat Glomerular Filtration Rate 57, BUN/Creatinine Ratio 36, Glucose Level 133, Calcium Level 8.4, Phosphorus Level 2.8, Magnesium Level 2.2 Discharge Home Medications: Active Scripts Active Diltiazem HCl 60 Mg Tablet 60 Mg PO Q6HR 30 Days Digox (Digoxin) 125 Mcg Tablet 0.125 Mg PO DAILY 30 Days Reported Prednisone 10 Mg Tab 10 Mg PO DAILY Eliquis (Apixaban) 5 Mg Tablet 5 Mg PO BID Levothyroxine Sodium 100 Mcg Tablet 100 Mcg PO 0630 Vitamin C with Leandra Hips (Ascorbic Acid) 500 Mg Tablet 500 Mg PO Calcium 600 + Vit D3 Tablet (Calcium Carbonate/Vitamin D3) 1 Each Tablet 2 Each PO DAILY Montelukast Sodium 10 Mg Tablet 10 Mg PO HS Ferrous Sulfate 325 Mg Tablet.dr 325 Mg PO DAILY Trelegy Ellipta 100-62.5-25 (Fluticasone/Umeclidin/Vilanter) 1 Each Blst.w.dev 1 Each IH DAILY Ventolin Hfa (Albuterol Sulfate) 18 Gm Hfa.aer.ad 2 Puff INH QID PRN Furosemide 40 Mg Tablet 40 Mg PO 0700,1400 Saline Mist (Sodium Chloride) 44 Ml [place] 1-2 Sprays NS TID PRN [place] Saline Nasal Gel [place] (Sodium Chloride/Aloe Vera) 22 Ml [place] 1 [place] NA BID PRN Multivitamins (Multivitamin) 1 Each Tablet 1 Tab PO DAILY Acetaminophen Extra Strength (Acetaminophen) 500 Mg Tablet 500 Mg PO Q4H PRN Fish Oil 1,000 mg Softgel ([place]-3 Fatty Acids/Fish Oil) 1 Each Capsule 1,000 Mg PO DAILY Revatio (Sildenafil Citrate) 20 Mg Tablet 20 Mg PO TID Albuterol Sulfate 2.5 Mg/3 Ml Vial.neb 2.5 Mg NEB EVERY 4-6 HOURS PRN Pantoprazole Sodium 40 Mg Tablet.dr 40 Mg PO 1700 BEFORE MEAL Atorvastatin Calcium 20 Mg Tablet 20 Mg PO HS Instructions to patient/family Please see electronic discharge instructions given to patient. Diagnosis/Problems Diagnosis/Problems (1) Acute exacerbation of CHF (congestive heart failure) Status: Acute (2) Acute on chronic respiratory failure with hypoxia Status: Acute (3) COPD (chronic obstructive pulmonary disease) Status: Acute (4) Hypoxia Status: Acute (5) On continuous oral anticoagulation Status: Acute (6) Chronic atrial fibrillation Status: Acute ANAT REBOLLAR DO Oct 04, 2020 11:38
[2020-10-04 11:51] VITALS: BP 113/52
[2020-10-04 12:50] VITALS: BP 113/52
--- NOTE | 2020-10-04 13:07 | Progress Note ---
[facility] 10/04/20 1307: Progress Note Hospital Course: Anni Khan was admitted to [facility] on 09/24 and will be discharged today to [facility]. She was admitted to the ICU for COPD exacerbation and hypoxia. PMH includes AFIB.CHF, HTN and O2 dependency at home. During her admission she was under the care of Internal Medicine , Pulmonary Dr. Cage, Cardiology Dr. Russell and RT,PT,OT. She presented with Leukocytosis and elevated BNP >900. She test (-) for COVID. She received multipe CXR while admitted. Treatment course included but was not limited to Vapotherm, respiratory therapy, IV lasix, abx and cardiac medication. Her labs have normalized or have reached an acceptable level. Recent CXR shows mild overall improvement. She is back down to her normal at home oxygen level. She will be discharged today in stable condition. The following information is only a summary of the PT admission at [facility] and is not all inclusive. Please review entire chart for more information. DAYANA REBOLLAR DO 10/05/20 0548: Supervisory-Addendum Brief Verification & Attestation Participated in pt care: history, MDM, physical Personally performed: exam, history, MDM, supervision of care Care discussed with: Medical Student Procedures: n/a Results interpretation: Verified all documentation Verification and Attestation of Medical Student E/M Service A medical student performed and documented this service in my presence. I reviewed and verified all information documented by the medical student and made modifications to such information, when appropriate. I personally performed the physical exam and medical decision making. Dayana Rebollar Oct 05, 2020,05:48 [facility] Oct 04, 2020 13:07 DAYANA REBOLLAR DO Oct 05, 2020 05:48
== END 2020-10-04 12:50 | DRG 291 ==
LOC: EDUNIT# 12:32 → ER 12:35 → 4TH 17:51 → ICU 09-25 11:36 → 4TH 09-27 11:47
PROVIDERS: ADMIT Family Medicine; ATTEND Internal Medicine
DX: I11.0 Hypertensive heart disease with heart failure (principal); I50.31 Acute diastolic (congestive) heart failure; J96.21 Acute and chronic respiratory failure with hypoxia; G93.41 Metabolic encephalopathy; N39.0 Urinary tract infection, site not specified; I48.19 Other persistent atrial fibrillation; F23 Brief psychotic disorder; Z66 Do not resuscitate; Z20.822 Contact with and (suspected) exposure to COVID-19; I08.1 Rheumatic disorders of both mitral and tricuspid valves; J43.9 Emphysema, unspecified; E87.6 Hypokalemia; M19.91 Primary osteoarthritis, unspecified site; K21.9 Gastro-esophageal reflux disease without esophagitis; E78.00 Pure hypercholesterolemia, unspecified; E03.9 Hypothyroidism, unspecified; I27.20 Pulmonary hypertension, unspecified; I73.9 Peripheral vascular disease, unspecified; H54.3 Unqualified visual loss, both eyes; Z79.01 Long term (current) use of anticoagulants; Z99.81 Dependence on supplemental oxygen; Z87.891 Personal history of nicotine dependence; Z79.52 Long term (current) use of systemic steroids; Z88.8 Allergy status to other drugs, medicaments and biological substances; Z83.6 Family history of other diseases of the respiratory system; Z82.49 Family history of ischemic heart disease and other diseases of the circulatory system
CPT/HCPCS: 36415; 71045; 71275; 80048; 80053; 80061; 81000; 82805; 83605; 83735; 83874; 83880; 84100; 84145; 84443; 84484; 85007; 85025; 85027; 85379; 85610; 85730; 87040; 87077; 87081; 87088; 87186; 87635; 93005; 93041; 94010; 94640; 94660; 94760; 96360